=== PATIENT | female | born 1960 | race Caucasian/White ===

== ENCOUNTER → 2016-10-31 | Outpatient (CLI) | payer OTHER ==
--- NOTE | 2016-10-31 09:07 | MM ---
Reason for exam: screening (asymptomatic). Baseline mammogram. History: Patient is postmenopausal. Physical Findings: Nurse did not find any significant physical abnormalities on exam. MG Screening Mammo w CAD Bilateral CC and MLO view(s) were taken. There are scattered fibroglandular densities. There is no discrete abnormality. ASSESSMENT: Negative, BI-RAD 1 RECOMMENDATION: Routine screening mammogram of both breasts in 1 year.
--- NOTE | 2016-10-31 10:45 | CTL ---
EXAMINATION TYPE: CT Low Dose Lung DATE OF EXAM ORDERED: 10/31/2016 HISTORY: Long-term tobacco use. Lung cancer screening CT DLP: 45.[address] CTDI: 1.3 mGy Automated exposure control for dose reduction was used. SCREENING VISIT: Initial study COMPARISON: CTA chest September 08, 2013 TECHNIQUE: Low dose computed tomography scan was performed through the chest at 1 mm thick sections and reconstructed images in the coronal plane at [address] DIAGNOSTIC QUALITY: Satisfactory FINDINGS: LUNG NODULES: Present, detailed below: Right lung a spiculated scarlike opacity nodule with a size of 8 x 5 mm. On image # CT Image slide number 131. Some adjacent bronchiectatic change is present. This was present on prior study near image 61 favor postinflammatory. Just below this right upper lobe there is new irregular 12 x 4 mm scarlike nodule on axial image 145 noted. Incidental note is made of 2 mm nodule inferior anterior right upper lobe on axial image 176. A few additional scattered micronodules are felt present. LUNGS: COPD: Severity: Mild to moderate Fibrosis: Severity: Mild apical scarring bilaterally. Mild to moderate scattered areas of linear scarring. More focal pleural-based scarring in the lingula on axial image 14 is redemonstrated with some progression from prior CT noted. Lymph nodes: No suspicious adenopathy. Other findings: No additional significant finding. BILATERAL PLEURAL SPACE: Effusion: None Calcification: None Thickening: Some focal thickening anteriorly near lingula seen best sagittal image 217 near site of lingular scarring is noted. Pneumothorax: None HEART: Heart Size: Normal Coronary calcification: Severe focal calcification in the left main Pericardial effusion: Tiny OTHER FINDINGS: Upper abdomen: No significant finding seen Bony thorax: Osseous structures somewhat demineralized. Supraclavicular region: No significant finding seen. Other: There is mild to moderate calcified plaque of aorta extending into arch vessels. Ascending aorta and proximal arch measure up to 3.4 cm in diameter IMPRESSION: 1. Background mild to moderate emphysematous change with mild to moderate scattered fibrosis. Slightly suspicious new spiculated 12 x 4 mm scarlike nodule right upper lobe noted. 2. Severe focal calcified plaque in left main, clinical correlation for additional cardiovascular risk factors advised. FOLLOW UP CT CHEST RECOMMENDATION: CT follow-up in 3 months time to reassess right upper lobe scarlike 12 x [address] LUNG RAD: 4X- Suspicious (technically due to spiculation) I favor postinflammatory in etiology over malignancy. Due to spiculation and size category 4X is given over category 3. Mean axis is 8 mm with no definitive 8 mm solid component to warrant PET CT currently. Advise CT follow up in 3months time. MTDD
== END | disposition home or self-care (01) ==
LOC: RADCTMAIN 08:14
PROVIDERS: ATTEND Family Medicine
DX: Z12.31 Encounter for screening mammogram for malignant neoplasm of breast (principal); Z12.2 Encounter for screening for malignant neoplasm of respiratory organs; J43.9 Emphysema, unspecified; Z72.0 Tobacco use
CPT/HCPCS: G0202; G0297

== ENCOUNTER 2016-11-01 18:26 | Observation (INO) | payer OTHER ==
[2016-11-01] MEDS ORDERED: NITROGLYCERIN OINT 1 INCH/GM PACKET TOPICAL STA (18:55)
[2016-11-01] MEDS ORDERED: ASPIRIN 81 MG PO STA (18:55)
[2016-11-01] MEDS ORDERED: SODIUM CHLORIDE 0.9% 1,000 ML IV STA (18:55)
[2016-11-01] MEDS ORDERED: NITROGLYCERIN SL TABS 0.4 MG TAB SUBLINGUAL STA ×3 (18:55)
--- NOTE | 2016-11-01 19:01 | ED ---
Chest Pain HPI - General Chief Complaint: Chest Pain Stated Complaint: chest tightness Time Seen by Provider: 11/01/16 18:50 Source: patient Mode of arrival: wheelchair Limitations: no limitations - History of Present Illness Initial Comments: This 56-year-old white female presents complaining of some left-sided chest pain that radiates into her left shoulder and is described as a pressure or tightness and is associated with some shortness of breath and started last evening. It will occur at rest. She states that she has a remote history of previous stress test and heart catheterization but this was quite some time ago. She denies any leg pain, swelling, history of DVT, or history of PE. She states that she had a screening computed tomography scan of her neck and her chest yesterday and this apparently showed an abnormality. She states that the pain is moderate in severity. No other complaints or modifying factors. - Related Data Home Medications Medication Instructions Recorded Confirmed Budesonide-Formot 160-4.5 Mcg 2 puff INHALATION RT-BID 09/07/13 11/01/16 [Symbicort 160-4.5 Mcg Inhaler] Albuterol Inhaler [Ventolin Hfa 2 puff INHALATION RT-Q6H PRN 10/23/15 11/01/16 Inhaler] Ascorbic Acid [Vitamin C] 500 mg PO DAILY 11/01/16 11/01/16 Aspirin 325 mg PO DAILY 11/01/16 11/01/16 Cholecalciferol [Vitamin D3] 1,000 unit PO DAILY 11/01/16 11/01/16 Citalopram Hydrobromide [CeleXA] 10 mg PO DAILY 11/01/16 11/01/16 Cyclobenzaprine [Flexeril] 10 mg PO Q8H PRN 11/01/16 11/01/16 [place]-3 Fatty Acids/Fish Oil [Fish 1 cap PO DAILY 11/01/16 11/01/16 Oil 1,000 mg Softgel] Vitamin B Complex 1 cap PO DAILY 11/01/16 11/01/16 Vitamin E 100 unit PO DAILY 11/01/16 11/01/16 Allergies Allergy/AdvReac Type Severity Reaction Status Date / Time No Known Allergies Allergy Verified 11/01/16 19:18 Review of Systems ROS Statement: Those systems with pertinent positive or pertinent negative responses have been documented in the HPI. ROS Other: All systems not noted in ROS Statement are negative. Past Medical History Past Medical History: Chest Pain / Angina, COPD Additional Past Medical History / Comment(s): migraines in past,bronchitis , stress test 09-10-15,murmur when younger History of Any Multi-Drug Resistant Organisms: None Reported Past Surgical History: Appendectomy, Tubal Ligation Past Anesthesia/Blood Transfusion Reactions: No Reported Reaction Past Psychological History: No Psychological Hx Reported Smoking Status: Current every day smoker Past Alcohol Use History: None Reported Past Drug Use History: None Reported - Past Family History Brother(s) Family Medical History: Coronary Artery Disease (CAD), Myocardial Infarction (ID ) Additional Family Medical History / Comment(s): pacemaker Sister(s) Family Medical History: Mitral Valve Prolapse (MVP) Father Additional Family Medical History / Comment(s): "post op mrsa infection- from complications of that" Mother Family Medical History: Cancer General Exam - General Exam Comments Initial Comments: GENERAL: The patient is well nourished and well hydrated. VITAL SIGNS: Heart rate, blood pressure, respiratory rate reviewed as recorded in nurse's notes. EYES: Pupils are round and reactive. Extraocular movements are intact. No conjunctival / lid redness or swelling. ENT: No external evidence of injury, swelling, or ecchymosis. Airway is patent. Throat is clear. NECK: Nontender. No swelling or evidence of injury. No subcutaneous emphysema. Trachea is midline. No thyroid mass. HEART: Regular rate and rhythm. Good peripheral pulses. LUNGS/CHEST: Breath sounds clear and equal bilaterally. No rales, rhonchi, or wheezes. No ecchymosis, subcutaneous emphysema, or tenderness. ABDOMEN: Abdomen soft without tenderness. No palpable masses or organomegaly. No peritoneal signs. No abdominal wall swelling or ecchymosis. EXTREMITIES: No extremity tenderness. Normal muscle tone and function. No thoracolumbar tenderness. NEUROLOGIC: Sensation is grossly intact. Cranial nerve exam reveals face is symmetrical, tongue is midline, speech is clear. SKIN: No abrasions or ecchymosis is noted. No induration or masses noted. PSYCHIATRIC: Alert and oriented. Appropriate behavior and judgment. 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 All diagnostics were reviewed. The EKG shows a normal sinus rhythm at a rate of 97. There is no acute ST-T wave changes identified. The HI interval is 132, QRS duration is 92, the QTc interval is 462. The patient received some nitroglycerin as well as an aspirin. The CT from yesterday was reviewed and this does show a lung nodule and the radiologist requests follow-up in this regard, some left main coronary artery plaquing, and changes of COPD. The patient had a cardiac profile lab review that is essentially negative. The chest x-ray does not show any acute processes. She did receive some morphine as well and is feeling better on recheck. The case is discussed with Dr. Desir and she'll be admitted to the hospital for further treatment and Cardiologic evaluation to rule out the possibility of acute coronary syndrome. Disposition Clinical Impression: Chest pain, Unstable angina pectoris, Dyspnea, COPD (chronic obstructive pulmonary disease), Coronary atherosclerosis, Lung nodule Disposition: ADMITTED IP TO THIS HOSP Condition: Fair Time of Disposition: 20: Decision Date: 11/01/16 Decision Time: :
[2016-11-01 19:06] LABS: Basophils # (A) 0.1 k/uL (0-0.2); Basophils % (A) 1 %; CH 34.6; CHCM 34.6; Eosinophils # (A) 0.2 k/uL (0-0.7); Eosinophils % (A) 2 %; HCT 47.2 % (34.0-46.0); HDW 2.08; HGB 15.7 gm/dL (11.4-16.0); Luc # (Auto) 0.13; Luc % (Auto) 2; Lymphocytes % (A) 23 %; MCH 33.5 pg (25.0-35.0); MCHC 33.3 g/dL (31.0-37.0); MCV 100.6 fL (80.0-100.0); Mean Platelet Volume 7.4; Monocytes # (A) 0.6 k/uL (0-1.0); Monocytes % (A) 7 %; Neutrophils # (A) 5.9 k/uL (1.3-7.7); Neutrophils % (A) 66 %; RDW 13.5 % (11.5-15.5); WBC 8.9 k/uL (3.8-10.6); WBC (Perox) 8.82
--- NOTE | 2016-11-01 19:14 | XR ---
EXAMINATION TYPE: XR chest 2V DATE OF EXAM: 11/01/2016 COMPARISON: 10/23/2015 HISTORY: Shortness of breath TECHNIQUE: Frontal and lateral views of the chest are obtained. FINDINGS: Scattered senescent parenchymal changes noted. Hyperinflation compatible with COPD. No evidence for infiltrate. No evidence for atelectasis. Heart size is stable. Mediastinal structures are stable and grossly unremarkable. No evidence for hilar prominence. Degenerative changes dorsal spine. IMPRESSION: 1. No evidence for acute pulmonary disease.
[2016-11-01 19:17] LABS: ALT 31 U/L (9-52); AST 27 U/L (14-36); Alkaline Phosphatase 77 U/L (38-126); Anion Gap 8 mmol/L; Blood Urea Nitrogen 16 mg/dL (7-17); Calcium 9.5 mg/dL (8.4-10.2); Carbon Dioxide 26 mmol/L (22-30); Chloride 103 mmol/L (98-107); Glucose 96 mg/dL (74-99); Magnesium 1.8 mg/dL (1.6-2.3); Non-African American GFR(MDRD) >60 (>60 ml/min/1.73 sqM); Potassium 4.3 mmol/L (3.5-5.1); Sodium 137 mmol/L (137-145); Total Bilirubin 0.5 mg/dL (0.2-1.3); Total Protein 6.8 g/dL (6.3-8.2)
[2016-11-01 19:26] LABS: Creatine Kinase 166 U/L (30-135)
[2016-11-01 19:39] LABS: Partial Thromboplastin Time 21.9 sec (22.0-30.0); Prothrombin Time 9.9 sec (9.0-12.0); Troponin I <0.012 ng/mL (0.000-0.034)
[2016-11-01 19:42] LABS: Creatine Kinase MB 3.9 ng/mL (0.0-2.4)
[2016-11-01] MEDS ORDERED: MORPHINE SULFATE 4 MG/ML SYRINGE IVP STA (19:59)
[2016-11-01] MEDS ORDERED: NITROGLYCERIN SL TABS 0.4 MG TAB SUBLINGUAL PRN (20:23)
[2016-11-01] MEDS ORDERED: HEPARIN SODIUM,PORCINE 5,000 UNIT/ML 1 ML VIAL IV PRN (20:23)
[2016-11-01] MEDS ORDERED: HEPARIN SODIUM,PORCINE 5,000 UNIT/ML 1 ML VIAL IV ONE (20:23)
[2016-11-01] MEDS ORDERED: ACETAMINOPHEN TAB 325 MG TAB PO PRN (20:23)
[2016-11-01] MEDS ORDERED: ALBUTEROL NEBULIZED 2.5 MG/3 ML INHALATION PRN (20:26)
[2016-11-01] MEDS ORDERED: CYCLOBENZAPRINE 10 MG TAB PO PRN (20:26)
[2016-11-01] MEDS ORDERED: HEPARIN SODIUM,PORCINE/D5W PMX 25,000 UNIT in DEXTROSE/WATER 1 500ML.BAG IV SCH (20:30)
[2016-11-01] MEDS: MORPHINE SULFATE 4 MG/ML SYRINGE IV PRN (22:30)
[2016-11-01] MEDS: METOPROLOL TARTRATE 25 MG TAB PO SCH (23:25)
[2016-11-02 02:39] LABS: Mean Platelet Volume 7.2
[2016-11-02 02:52] LABS: Cholesterol 163 mg/dL (<200); HDL Cholesterol 76 mg/dL (40-60)
[2016-11-02 03:01] LABS: Creatine Kinase 116 U/L (30-135)
[2016-11-02 03:14] LABS: Troponin I <0.012 ng/mL (0.000-0.034)
[2016-11-02 03:22] LABS: Creatine Kinase MB 2.9 ng/mL (0.0-2.4)
[2016-11-02] MEDS: NITROGLYCERIN OINT 1 INCH/GM PACKET TOPICAL SCH ×3 (04:21→12:49)
[2016-11-02] MEDS: MORPHINE SULFATE 4 MG/ML SYRINGE IV PRN ×3 (04:21→13:03)
[2016-11-02 07:14] LABS: Creatine Kinase 102 U/L (30-135)
[2016-11-02 07:26] LABS: Troponin I <0.012 ng/mL (0.000-0.034)
[2016-11-02 07:30] LABS: Creatine Kinase MB 3.2 ng/mL (0.0-2.4)
[2016-11-02 07:45] VITALS: TEMP 97.5
[2016-11-02] MEDS ORDERED: VITAMIN E (DL,TOCOPHERYL ACET) 400 UNIT CAP PO SCH (09:00)
[2016-11-02] MEDS ORDERED: ASCORBIC ACID 500 MG TAB PO SCH (09:00)
[2016-11-02] MEDS ORDERED: CYANOCOBALAMIN-FA-PYRIDOXINE 1 EACH TAB PO SCH (09:00)
[2016-11-02] MEDS ORDERED: ASPIRIN 325 MG TAB PO SCH (09:00)
[2016-11-02] MEDS ORDERED: NON-FORMULARY DRUG (Omega-3 Fatty Acids/Fish Oil [Fish Oil 1,000 Mg Softgel] 1 CAP) PO SCH (09:00)
[2016-11-02] MEDS ORDERED: CHOLECALCIFEROL 1,000 UNIT TAB PO SCH (09:00)
[2016-11-02] MEDS ORDERED: CITALOPRAM HYDROBROMIDE 10 MG TAB PO SCH (09:00)
[2016-11-02] MEDS ORDERED: DOBUTamine DRIP for NUC MED 500 MG in DEXTROSE/WATER 1 250ML.BAG IV ONE (09:15)
--- NOTE | 2016-11-02 09:15 | P.HPIM ---
History of Present Illness H&P Date: 11/02/16 Chief Complaint: Chest pain. This is a 56-year-old white female with history of COPD who has come complaining of chest pressure and chest pain for the last several days. She states that it has been somewhat present intermittently over the last several months and years. However the pain became exacerbated in the last several days to the point where she was somewhat worried. No significant nausea some palpitations were noted. No significant diaphoresis. She is appropriately admitted to rule out myocardial infarction and history of unstable angina/chest pain. Review of Systems Constitutional: Denies chills, Denies fever Eyes: denies blurred vision, denies pain Ears, nose, mouth and throat: Denies headache, Denies sore throat Cardiovascular: Reports as per HPI, Reports chest pain, Denies shortness of breath Respiratory: Denies cough Gastrointestinal: Denies abdominal pain, Denies diarrhea, Denies nausea, Denies vomiting Genitourinary: Denies dysuria, Denies hematuria Musculoskeletal: Denies myalgias Past Medical History Past Medical History: Chest Pain / Angina, COPD Additional Past Medical History / Comment(s): migraines in past,bronchitis , stress test 09-10-15,murmur when younger, hypoglycemia History of Any Multi-Drug Resistant Organisms: None Reported Past Surgical History: Appendectomy, Tubal Ligation Past Anesthesia/Blood Transfusion Reactions: No Reported Reaction Past Psychological History: No Psychological Hx Reported Smoking Status: Current every day smoker Past Alcohol Use History: None Reported Additional Past Alcohol Use History / Comment(s): started smoking 1984 was smokig 3 ppd ow down to 2 ppd. Past Drug Use History: None Reported - Past Family History Brother(s) Family Medical History: Coronary Artery Disease (CAD), Myocardial Infarction (MS ) Additional Family Medical History / Comment(s): pacemaker Sister(s) Family Medical History: Mitral Valve Prolapse (MVP) Father Additional Family Medical History / Comment(s): "post op mrsa infection- from complications of that" Mother Family Medical History: Cancer Medications and Allergies Home Medications Medication Instructions Recorded Confirmed Type Budesonide-Formot 160-4.5 Mcg 2 puff INHALATION RT-BID 09/07/13 11/01/16 History [Symbicort 160-4.5 Mcg Inhaler] Albuterol Inhaler [Ventolin Hfa 2 puff INHALATION RT-Q6H PRN 10/23/15 11/01/16 History Inhaler] Ascorbic Acid [Vitamin C] 500 mg PO DAILY 11/01/16 11/01/16 History Aspirin 325 mg PO DAILY 11/01/16 11/01/16 History Cholecalciferol [Vitamin D3] 1,000 unit PO DAILY 11/01/16 11/01/16 History Citalopram Hydrobromide [CeleXA] 10 mg PO DAILY 11/01/16 11/01/16 History Cyclobenzaprine [Flexeril] 10 mg PO Q8H PRN 11/01/16 11/01/16 History [place]-3 Fatty Acids/Fish Oil [Fish 1 cap PO DAILY 11/01/16 11/01/16 History Oil 1,000 mg Softgel] Vitamin B Complex 1 cap PO DAILY 11/01/16 11/01/16 History Vitamin E 100 unit PO DAILY 11/01/16 11/01/16 History Allergies Allergy/AdvReac Type Severity Reaction Status Date / Time No Known Allergies Allergy Verified 11/01/16 19:18 Physical Exam Vitals: Vital Signs Temp Pulse Pulse Pulse Resp BP BP 11/02/16 07:44 97.5 F L 75 16 111/69 11/02/16 04:29 98.4 F 71 16 112/65 11/02/16 00:19 97.6 F 85 16 115/74 11/01/16 21:32 97.6 F 70 16 129/77 11/01/16 21:10 97.8 F 87 16 140/77 11/01/16 19:53 96 16 128/61 11/01/16 19:45 94 16 134/74 11/01/16 19:37 99 16 122/71 11/01/16 18:59 105 H 20 11/01/16 18:34 97.2 F L 102 H 17 134/69 Pulse Ox 11/02/16 07:44 95 11/02/16 04:29 94 L 11/02/16 00:19 94 L 11/01/16 21:32 94 L 11/01/16 21:10 97 11/01/16 19:53 93 L 11/01/16 19:45 95 11/01/16 19:37 96 11/01/16 18:59 11/01/16 18:34 95 Intake and Output 11/01/16 11/02/16 11/02/16 22:59 06:59 14:59 Intake Total 103.531 Balance 103.531 Intake: Intake, IV Titration 103.531 Amount Heparin Sodium,Porcine/ 103.531 D5w Pmx 25,000 unit In Dextrose/Water 1 500ml. bag @ 12 UNITS/KG/HR 14. 15 mls/hr IV .Q24H [facility] Rx #:[id number] Other: Weight 58.967 kg - Constitutional General appearance: no acute distress - EENT Eyes: EOMI - Neck Neck: no lymphadenopathy - Respiratory Respiratory: bilateral: CTA - Cardiovascular Rhythm: regular Heart sounds: normal: S1, S2 - Gastrointestinal General gastrointestinal: soft, no tenderness - Neurologic Neurologic: CNII-XII intact Results CBC & Chem 7: 11/02/16 02:11 11/01/16 18:52 Labs: Abnormal Lab Results - Last 24 Hours (Table) 11/01/16 11/01/16 11/01/16 Range/Units 18:52 18:52 18:52 Hct 47.2 H (34.0-46.0) % MCV 100.6 H (80.0-100.0) fL APTT 21.9 L (22.0-30.0) sec Total Creatine Kinase 166 H (30-135) U/L CK-MB (CK-2) 3.9 H* (0.0-2.4) ng/mL HDL Cholesterol (40-60) mg/dL 11/02/16 11/02/16 11/02/16 Range/Units 02:11 02:11 02:11 Hct (34.0-46.0) % MCV (80.0-100.0) fL APTT 36.9 H (22.0-30.0) sec Total Creatine Kinase (30-135) U/L CK-MB (CK-2) 2.9 H* (0.0-2.4) ng/mL HDL Cholesterol 76 H (40-60) mg/dL 11/02/16 Range/Units 06:14 Hct (34.0-46.0) % MCV (80.0-100.0) fL APTT (22.0-30.0) sec Total Creatine Kinase (30-135) U/L CK-MB (CK-2) 3.2 H* (0.0-2.4) ng/mL HDL Cholesterol (40-60) mg/dL Thrombosis Risk Factor Assmnt - Choose All That Apply Each Factor Represents 1 point: Age 41-60 years Thrombosis Risk Factor Assessment Total Risk Factor Score: 1 Thrombosis Risk Factor Assessment Level: Low Risk Assessment and Plan (1) Chest pain Status: Acute (2) Lung nodule Status: Acute (3) Atypical chest pain Status: Acute Plan: Suspect patient will need appropriate stress testing. Echocardiogram is pending. Sales Representative Facility Services consulted. Reconcile home medications. Otherwise, she is a full code. See orders otherwise. Time with Patient: Less than 30
[2016-11-02 10:00] VITALS: PULSE 71
[2016-11-02] MEDS: SYMBICORT 160-4.5 MCG INHALER INHALATION SCH ×2 (10:52→10:58)
--- NOTE | 2016-11-02 11:02 | P.CRDCN ---
History of Present Illness Consult date: 11/02/16 History of present illness: This is a 56-year-old female patient past medical history significant for COPD. She presented to the emergency department with complaints of a heavy pressure type feeling midsternal region that radiated into the left arm and to the back. She states she was sitting down doing nothing of particular exertion when this pain came on. This pain is intermittent in nature subsides on its own and returns with no specific aggravating factors verbalize. She is does have associated shortness of breath as well as diaphoresis. She recently underwent a lung CT per PCP she evaluate lung condition based on the fact that she has severe COPD and is still chronic daily smoker. This test showed moderate calcification of the left main coronary artery. EKG is normal sinus mechanism with no acute ST or T-wave abnormality. Troponin are negative 3. She has never seen a paraprofessional aide other than as an inpatient in the hospital. She was last here in 2016 at that time a stress test was recommended. She was advised to follow-up as an outpatient and never did. Review of Systems Extensive review of systems performed, negative except mentioned in HPI. Past Medical History Past Medical History: Chest Pain / Angina, COPD Additional Past Medical History / Comment(s): migraines in past,bronchitis , stress test 09-10-15,murmur when younger, hypoglycemia History of Any Multi-Drug Resistant Organisms: None Reported Past Surgical History: Appendectomy, Tubal Ligation Past Anesthesia/Blood Transfusion Reactions: No Reported Reaction Past Psychological History: No Psychological Hx Reported Smoking Status: Current every day smoker Past Alcohol Use History: None Reported Additional Past Alcohol Use History / Comment(s): started smoking 1984 was smokig 3 ppd ow down to 2 ppd. Past Drug Use History: None Reported - Past Family History Brother(s) Family Medical History: Coronary Artery Disease (CAD), Myocardial Infarction ([place] ) Additional Family Medical History / Comment(s): pacemaker Sister(s) Family Medical History: Mitral Valve Prolapse (MVP) Father Additional Family Medical History / Comment(s): "post op mrsa infection- from complications of that" Mother Family Medical History: Cancer Medications and Allergies Home Medications Medication Instructions Recorded Confirmed Type Budesonide-Formot 160-4.5 Mcg 2 puff INHALATION RT-BID 09/07/13 11/01/16 History [Symbicort 160-4.5 Mcg Inhaler] Albuterol Inhaler [Ventolin Hfa 2 puff INHALATION RT-Q6H PRN 10/23/15 11/01/16 History Inhaler] Ascorbic Acid [Vitamin C] 500 mg PO DAILY 11/01/16 11/01/16 History Aspirin 325 mg PO DAILY 11/01/16 11/01/16 History Cholecalciferol [Vitamin D3] 1,000 unit PO DAILY 11/01/16 11/01/16 History Citalopram Hydrobromide [CeleXA] 10 mg PO DAILY 11/01/16 11/01/16 History Cyclobenzaprine [Flexeril] 10 mg PO Q8H PRN 11/01/16 11/01/16 History [place]-3 Fatty Acids/Fish Oil [Fish 1 cap PO DAILY 11/01/16 11/01/16 History Oil 1,000 mg Softgel] Vitamin B Complex 1 cap PO DAILY 11/01/16 11/01/16 History Vitamin E 100 unit PO DAILY 11/01/16 11/01/16 History Allergies Allergy/AdvReac Type Severity Reaction Status Date / Time No Known Allergies Allergy Verified 11/01/16 19:18 Physical Exam Vitals: Vital Signs Temp Pulse Pulse Pulse Resp BP BP 11/02/16 07:44 97.5 F L 75 16 111/69 11/02/16 04:29 98.4 F 71 16 112/65 11/02/16 00:19 97.6 F 85 16 115/74 11/01/16 21:32 97.6 F 70 16 129/77 11/01/16 21:10 97.8 F 87 16 140/77 11/01/16 19:53 96 16 128/61 11/01/16 19:45 94 16 134/74 11/01/16 19:37 99 16 122/71 11/01/16 18:59 105 H 20 11/01/16 18:34 97.2 F L 102 H 17 134/69 Pulse Ox 11/02/16 07:44 95 11/02/16 04:29 94 L 11/02/16 00:19 94 L 11/01/16 21:32 94 L 11/01/16 21:10 97 11/01/16 19:53 93 L 11/01/16 19:45 95 11/01/16 19:37 96 11/01/16 18:59 11/01/16 18:34 95 Intake and Output 11/01/16 11/02/16 11/02/16 22:59 06:59 14:59 Intake Total 103.531 Balance 103.531 Intake: Intake, IV Titration 103.531 Amount Heparin Sodium,Porcine/ 103.531 D5w Pmx 25,000 unit In Dextrose/Water 1 500ml. bag @ 12 UNITS/KG/HR 14. 15 mls/hr IV .Q24H [facility] Rx #:[id number] Other: Weight 58.967 kg GENERAL: This is a 56-year-old female in no apparent distress at the time of my examination. HEENT: Head is atraumatic, normocephalic. Pupils are equal, round. Sclerae anicteric. Conjunctivae are clear. Mucous membranes of the mouth are moist. Neck is supple. There is no jugular venous distention. No carotid bruit is heard. LUNGS: Clear to auscultation no wheezes, rales or rhonchi. No chest wall tenderness is noted on palpation or with deep breathing. HEART: Regular rate and rhythm without murmurs, rubs or gallops. S1 and S2 heard. ABDOMEN: Soft, nontender. Bowel sounds are heard. No organomegaly noted. EXTREMITIES: 2+ peripheral pulses with no evidence of peripheral edema and no calf tenderness noted. NEUROLOGIC: Patient is awake, alert and oriented x3. Results 11/02/16 02:11 11/01/16 18:52 Cardiac Enzymes 11/01/16 11/01/16 11/02/16 Range/Units 18:52 18:52 02:11 AST 27 (14-36) U/L CK-MB (CK-2) 3.9 H* 2.9 H* (0.0-2.4) ng/mL Troponin I <0.012 <0.012 (0.000-0.034) ng/mL 11/02/16 Range/Units 06:14 AST (14-36) U/L CK-MB (CK-2) 3.2 H* (0.0-2.4) ng/mL Troponin I <0.012 (0.000-0.034) ng/mL Coagulation 11/01/16 11/02/16 Range/Units 18:52 02:11 PT 9.9 (9.0-12.0) sec APTT 21.9 L 36.9 H (22.0-30.0) sec Lipids 11/02/16 Range/Units 02:11 Triglycerides 68 (<150) mg/dL Cholesterol 163 (<200) mg/dL HDL Cholesterol 76 H (40-60) mg/dL CBC 11/01/16 11/02/16 Range/Units 18:52 02:11 WBC 8.9 (3.8-10.6) k/uL RBC 4.70 (3.80-5.40) m/uL Hgb 15.7 (11.4-16.0) gm/dL Hct 47.2 H (34.0-46.0) % Plt Count 346 296 (150-450) k/uL Comprehensive Metabolic Panel 11/01/16 Range/Units 18:52 Sodium 137 (137-145) mmol/L Potassium 4.3 (3.5-5.1) mmol/L Chloride 103 (98-107) mmol/L Carbon Dioxide 26 (22-30) mmol/L BUN 16 (7-17) mg/dL Creatinine 0.96 (0.52-1.04) mg/dL Glucose 96 (74-99) mg/dL Calcium 9.5 (8.4-10.2) mg/dL AST 27 (14-36) U/L ALT 31 (9-52) U/L Alkaline Phosphatase 77 (38-126) U/L Total Protein 6.8 (6.3-8.2) g/dL Albumin 4.3 (3.5-5.0) g/dL Current Medications Generic Name Dose Route Start Last Admin Trade Name Freq PRN Reason Stop Dose Admin Acetaminophen 650 mg 11/01/16 20:23 Tylenol Tab PO Q4HR PRN Pain Albuterol Sulfate 2.5 mg 11/01/16 20:26 Ventolin Nebulized INHALATION RT-Q6H PRN Shortness Of Breath Ascorbic Acid 500 mg 11/02/16 09:00 Vitamin C PO DAILY [facility] Aspirin 325 mg 11/02/16 09:00 Aspirin PO DAILY [facility] Budesonide/Formoterol Fumarate 2 puff 11/02/16 08:00 Symbicort 160-4.5 Mcg Inhaler INHALATION RT-BID [facility] Cholecalciferol 1,000 unit 11/02/16 09:00 Vitamin D3 PO DAILY [facility] Citalopram Hydrobromide 10 mg 11/02/16 09:00 Celexa PO DAILY [facility] Cyclobenzaprine HCl 10 mg 11/01/16 20:26 11/02/16 01:35 Flexeril PO 10 mg Q8H PRN Administration Muscle Spasm Folic Acid 1 each 11/02/16 09:00 Folbic PO DAILY [facility] Heparin Sodium (Porcine) 0 unit 11/01/16 20:23 11/02/16 04:29 Heparin IV 4,000 unit Q6HR PRN Administration Low PTT Protocol Heparin Sodium/Dextrose 25,000 500 mls @ 14.15 mls/hr 11/01/16 20:30 04:28 unit/ IV Solution IV 15.51 units/kg/hr .Q24H [facility] 18.3 mls/hr Protocol Titration 12 UNITS/KG/HR Metoprolol Tartrate 25 mg 11/01/16 21:00 11/01/16 23:25 Lopressor PO 25 mg BID [facility] Administration Morphine Sulfate 4 mg 11/01/16 20:23 11/02/16 04:21 Morphine Sulfate (Inj) IV 4 mg Q4H PRN Administration Chest Pain Nitroglycerin 1 inch 11/02/16 00:00 11/02/16 06:49 Nitro-Bid Oint TOPICAL Not Given Q6HR [facility] Nitroglycerin 0.4 mg 11/01/16 20:23 Nitrostat SUBLINGUAL Q5M PRN Chest Pain Vitamin E 400 unit 11/02/16 09:00 Vitamin E PO DAILY [facility] Intake and Output 11/01/16 11/02/16 11/02/16 22:59 06:59 14:59 Intake Total 103.531 Balance 103.531 Intake: Intake, IV Titration 103.531 Amount Heparin Sodium,Porcine/ 103.531 D5w Pmx 25,000 unit In Dextrose/Water 1 500ml. bag @ 12 UNITS/KG/HR 14. 15 mls/hr IV .Q24H [facility] Rx #:[id number] Other: Weight 58.967 kg 11/02/16 02:11 11/01/16 18:52 EKG Interpretations (text) EKG indicates a normal sinus mechanism. Assessment and Plan Plan: ASSESSMENT 1. Chest pain, atypical 2. COPD PLAN Obtain 2-D echocardiogram to assess LV function and structure. Proceed with a dobutamine stress echo to rule out an acute coronary event. If this testing is normal from a cardiac perspective the patient is stable for discharge home. She can follow-up with Dr. Gomes as needed. Thank you kindly for this consultation Nurse Practitioner note has been reviewed, I agree with a documented findings and plan of care. Patient was seen and examined.
[2016-11-02 11:23] VITALS: BP 117/79; RESP 18
[2016-11-02] MEDS: METOPROLOL TARTRATE 25 MG TAB PO SCH (11:45)
--- NOTE | 2016-11-02 11:54 | P.CRDCN ---
History of Present Illness Consult reason: chest pain History of present illness: Patient examined Normal heart sounds Normal cardiac enzymes Admitted with chest discomfort Discussed with Dr. Desir Proceed with dobutamine stress echo this morning Please see full dictation by nurse practitioner Past Medical History Past Medical History: Chest Pain / Angina, COPD Additional Past Medical History / Comment(s): migraines in past,bronchitis , stress test 09-10-15,murmur when younger, hypoglycemia History of Any Multi-Drug Resistant Organisms: None Reported Past Surgical History: Appendectomy, Tubal Ligation Past Anesthesia/Blood Transfusion Reactions: No Reported Reaction Past Psychological History: No Psychological Hx Reported Smoking Status: Current every day smoker Past Alcohol Use History: None Reported Additional Past Alcohol Use History / Comment(s): started smoking 1984 was smokig 3 ppd ow down to 2 ppd. Past Drug Use History: None Reported - Past Family History Brother(s) Family Medical History: Coronary Artery Disease (CAD), Myocardial Infarction ([place] ) Additional Family Medical History / Comment(s): pacemaker Sister(s) Family Medical History: Mitral Valve Prolapse (MVP) Father Additional Family Medical History / Comment(s): "post op mrsa infection- from complications of that" Mother Family Medical History: Cancer Medications and Allergies Home Medications Medication Instructions Recorded Confirmed Type Budesonide-Formot 160-4.5 Mcg 2 puff INHALATION RT-BID 09/07/13 11/01/16 History [Symbicort 160-4.5 Mcg Inhaler] Albuterol Inhaler [Ventolin Hfa 2 puff INHALATION RT-Q6H PRN 10/23/15 11/01/16 History Inhaler] Ascorbic Acid [Vitamin C] 500 mg PO DAILY 11/01/16 11/01/16 History Aspirin 325 mg PO DAILY 11/01/16 11/01/16 History Cholecalciferol [Vitamin D3] 1,000 unit PO DAILY 11/01/16 11/01/16 History Citalopram Hydrobromide [CeleXA] 10 mg PO DAILY 11/01/16 11/01/16 History Cyclobenzaprine [Flexeril] 10 mg PO Q8H PRN 11/01/16 11/01/16 History [place]-3 Fatty Acids/Fish Oil [Fish 1 cap PO DAILY 11/01/16 11/01/16 History Oil 1,000 mg Softgel] Vitamin B Complex 1 cap PO DAILY 11/01/16 11/01/16 History Vitamin E 100 unit PO DAILY 11/01/16 11/01/16 History Allergies Allergy/AdvReac Type Severity Reaction Status Date / Time No Known Allergies Allergy Verified 11/01/16 19:18 Physical Exam Vitals: Vital Signs Temp Pulse Pulse Pulse Resp BP BP 11/02/16 11:22 97.5 F L 71 18 117/79 11/02/16 08:00 71 75 16 11/02/16 07:44 97.5 F L 75 16 111/69 11/02/16 04:29 98.4 F 71 16 112/65 11/02/16 00:19 97.6 F 85 16 115/74 11/01/16 21:32 97.6 F 70 16 129/77 11/01/16 21:10 97.8 F 87 16 140/77 11/01/16 19:53 96 16 128/61 11/01/16 19:45 94 16 134/74 11/01/16 19:37 99 16 122/71 11/01/16 18:59 105 H 20 11/01/16 18:34 97.2 F L 102 H 17 134/69 Pulse Ox 11/02/16 11:22 93 L 11/02/16 08:00 11/02/16 07:44 95 11/02/16 04:29 94 L 11/02/16 00:19 94 L 11/01/16 21:32 94 L 11/01/16 21:10 97 11/01/16 19:53 93 L 11/01/16 19:45 95 11/01/16 19:37 96 11/01/16 18:59 11/01/16 18:34 95 Intake and Output 11/01/16 11/02/16 11/02/16 22:59 06:59 14:59 Intake Total 103.531 Balance 103.531 Intake: Intake, IV Titration 103.531 Amount Heparin Sodium,Porcine/ 103.531 D5w Pmx 25,000 unit In Dextrose/Water 1 500ml. bag @ 12 UNITS/KG/HR 14. 15 mls/hr IV .Q24H [facility] Rx #:[id number] Other: Voiding Method Toilet Weight 58.967 kg Results 11/02/16 02:11 11/01/16 18:52 Cardiac Enzymes 11/01/16 11/01/16 11/02/16 Range/Units 18:52 18:52 02:11 AST 27 (14-36) U/L CK-MB (CK-2) 3.9 H* 2.9 H* (0.0-2.4) ng/mL Troponin I <0.012 <0.012 (0.000-0.034) ng/mL 11/02/16 Range/Units 06:14 AST (14-36) U/L CK-MB (CK-2) 3.2 H* (0.0-2.4) ng/mL Troponin I <0.012 (0.000-0.034) ng/mL Coagulation 11/01/16 11/02/16 Range/Units 18:52 02:11 PT 9.9 (9.0-12.0) sec APTT 21.9 L 36.9 H (22.0-30.0) sec Lipids 11/02/16 Range/Units 02:11 Triglycerides 68 (<150) mg/dL Cholesterol 163 (<200) mg/dL HDL Cholesterol 76 H (40-60) mg/dL CBC 11/01/16 11/02/16 Range/Units 18:52 02:11 WBC 8.9 (3.8-10.6) k/uL RBC 4.70 (3.80-5.40) m/uL Hgb 15.7 (11.4-16.0) gm/dL Hct 47.2 H (34.0-46.0) % Plt Count 346 296 (150-450) k/uL Comprehensive Metabolic Panel 11/01/16 Range/Units 18:52 Sodium 137 (137-145) mmol/L Potassium 4.3 (3.5-5.1) mmol/L Chloride 103 (98-107) mmol/L Carbon Dioxide 26 (22-30) mmol/L BUN 16 (7-17) mg/dL Creatinine 0.96 (0.52-1.04) mg/dL Glucose 96 (74-99) mg/dL Calcium 9.5 (8.4-10.2) mg/dL AST 27 (14-36) U/L ALT 31 (9-52) U/L Alkaline Phosphatase 77 (38-126) U/L Total Protein 6.8 (6.3-8.2) g/dL Albumin 4.3 (3.5-5.0) g/dL Current Medications Generic Name Dose Route Start Last Admin Trade Name Freq PRN Reason Stop Dose Admin Acetaminophen 650 mg 11/01/16 20:23 Tylenol Tab PO Q4HR PRN Pain Albuterol Sulfate 2.5 mg 11/01/16 20:26 Ventolin Nebulized INHALATION RT-Q6H PRN Shortness Of Breath Ascorbic Acid 500 mg 11/02/16 09:00 11/02/16 11:46 Vitamin C PO 500 mg DAILY [facility] Administration Aspirin 325 mg 11/02/16 09:00 11/02/16 11:46 Aspirin PO 325 mg DAILY [facility] Administration Budesonide/Formoterol Fumarate 2 puff 11/02/16 08:00 11/02/16 10:58 Symbicort 160-4.5 Mcg Inhaler INHALATION 2 puff RT-BID [facility] Administration Cholecalciferol 1,000 unit 11/02/16 09:00 11/02/16 11:46 Vitamin D3 PO 1,000 unit DAILY [facility] Administration Citalopram Hydrobromide 10 mg 11/02/16 09:00 11/02/16 11:46 Celexa PO 10 mg DAILY [facility] Administration Cyclobenzaprine HCl 10 mg 11/01/16 20:26 11/02/16 01:35 Flexeril PO 10 mg Q8H PRN Administration Muscle Spasm Folic Acid 1 each 11/02/16 09:00 11/02/16 11:45 Folbic PO 1 each DAILY [facility] Administration Metoprolol Tartrate 25 mg 11/01/16 21:00 11/02/16 11:45 Lopressor PO Not Given BID [facility] Morphine Sulfate 4 mg 11/01/16 20:23 11/02/16 09:02 Morphine Sulfate (Inj) IV 4 mg Q4H PRN Administration Chest Pain Nitroglycerin 1 inch 11/02/16 00:00 11/02/16 06:49 Nitro-Bid Oint TOPICAL Not Given Q6HR [facility] Nitroglycerin 0.4 mg 11/01/16 20:23 Nitrostat SUBLINGUAL Q5M PRN Chest Pain Vitamin E 400 unit 11/02/16 09:00 11/02/16 11:46 Vitamin E PO 400 unit DAILY [facility] Administration Intake and Output 09/11/02/16 11/02/16 22:59 06:59 14:59 Intake Total 103.531 Balance 103.531 Intake: Intake, IV Titration 103.531 Amount Heparin Sodium,Porcine/ 103.531 D5w Pmx 25,000 unit In Dextrose/Water 1 500ml. bag @ 12 UNITS/KG/HR 14. 15 mls/hr IV .Q24H [facility] Rx #:[id number] Other: Voiding Method Toilet Weight 58.967 kg 11/02/16 02:11 11/01/16 18:52
--- NOTE | 2016-11-02 13:11 | ECHOF ---
Referral Reason:cp MEASUREMENTS -------- HEIGHT: 172.7 cm WEIGHT: 59.0 kg BP: 112/65 RVIDd: 3.6 cm (< 3.3) IVSd: 0.9 cm (0.6 - 1.1) LVIDd: 3.9 cm (3.9 - 5.3) LVPWd: 0.9 cm (0.6 - 1.1) IVSs: 1.4 cm LVIDs: 2.9 cm LVPWs: 1.3 cm LA Diam: 2.8 cm (2.7 - 3.8) LAESV Index (A-L): 20.89 ml/m Ao Diam: 3.5 cm (2.0 - 3.7) AV Cusp: 2.1 cm (1.5 - 2.6) MV EXCURSION: 23.406 mm (> 18.000) MV EF SLOPE: 162 mm/s (70 - 150) EPSS: 0.3 cm MV E Pasquale: 0.86 m/s MV DecT: 214 ms MV A Pasquale: 0.79 m/s MV E/A Ratio: 1.09 RAP: 5.00 mmHg RVSP: 21.70 mmHg FINDINGS -------- Sinus rhythm. This was a technically good study. The left ventricular size is normal. Left ventricular wall thickness is normal. Overall left ventricular systolic function is normal with, an EF between 55 - 60 %. The right ventricle is mildly enlarged. Normal LA size by volume 22+/-6 ml/m2. The right atrium is normal in size. The aortic valve was not well visualized. There is trace mitral regurgitation. Mild tricuspid regurgitation present. Right ventricular systolic pressure is normal at < 35 mmHg. The pulmonic valve is normal. The aortic root size is normal. The inferior vena cava is mildly dilated. There is no pericardial effusion. CONCLUSIONS -------- 1. Sinus rhythm. 2. There is trace mitral regurgitation. 3. Mild tricuspid regurgitation present. 4. Right ventricular systolic pressure is normal at < 35 mmHg. 5. The pulmonic valve is normal. 6. The aortic root size is normal. 7. The inferior vena cava is mildly dilated. 8. There is no pericardial effusion. 9. This was a technically good study. 10. The left ventricular size is normal. 11. Left ventricular wall thickness is normal. 12. Overall left ventricular systolic function is normal with, an EF between 55 - 60 %. 13. The right ventricle is mildly enlarged. 14. Normal LA size by volume 22+/-6 ml/m2. 15. The right atrium is normal in size. 16. The aortic valve was not well visualized. WEIGHT AND TEST BAR CLERK: Jyoti Ohara RDCS
--- NOTE | 2016-11-02 14:40 | P.DS ---
Providers Date of admission: 11/01/16 20:28 Attending physician: Javier Desir Consults: 11/01/16 20:23 Consult Physician Urgent Consulting Provider: Kelsey Frost Consult Reason/Comments: cp Do you want consulting provider notified?: Yes Primary care physician: Javier Desir - Discharge Diagnosis(es) (1) Chest pain Current Visit: Yes Status: Acute (2) Lung nodule Current Visit: Yes Status: Acute (3) Atypical chest pain Current Visit: No Status: Acute Hospital Course: This is a discharge summary in a 56-year-old white female essentially admitted for chest pain with typical anginal features. Myocardial infarction was ruled out from an enzymatic perspective. However, cardiology was consulted and we ended up doing stress testing. She does have multiple risk factors including element of CPE. The patient was stabilized and stress testing did not show any type of coronary artery damage or element of disease on stress testing. The patient is discharged in stable condition to follow-up with her naproxen 5-7 days. Patient Condition at Discharge: Stable Plan - Discharge Summary New Discharge Prescriptions: Continue Budesonide-Formot 160-4.5 Mcg [Symbicort 160-4.5 Mcg Inhaler] 2 puff INHALATION RT-BID Albuterol Inhaler [Ventolin Hfa Inhaler] 2 puff INHALATION RT-Q6H PRN PRN Reason: Shortness Of Breath Cholecalciferol [Vitamin D3] 1,000 unit PO DAILY Ascorbic Acid [Vitamin C] 500 mg PO DAILY Vitamin B Complex 1 cap PO DAILY Cyclobenzaprine [Flexeril] 10 mg PO Q8H PRN PRN Reason: Muscle Spasm Citalopram Hydrobromide [CeleXA] 10 mg PO DAILY Aspirin 325 mg PO DAILY [place]-3 Fatty Acids/Fish Oil [Fish Oil 1,000 mg Softgel] 1 cap PO DAILY Vitamin E 100 unit PO DAILY Discharge Medication List Budesonide-Formot 160-4.5 Mcg [Symbicort 160-4.5 Mcg Inhaler] 2 puff INHALATION RT-BID 09/07/13 [History] Albuterol Inhaler [Ventolin Hfa Inhaler] 2 puff INHALATION RT-Q6H PRN 10/23/15 [ History] Ascorbic Acid [Vitamin C] 500 mg PO DAILY 11/01/16 [History] Aspirin 325 mg PO DAILY 11/01/16 [History] Cholecalciferol [Vitamin D3] 1,000 unit PO DAILY 11/01/16 [History] Citalopram Hydrobromide [CeleXA] 10 mg PO DAILY 11/01/16 [History] Cyclobenzaprine [Flexeril] 10 mg PO Q8H PRN 11/01/16 [History] [place]-3 Fatty Acids/Fish Oil [Fish Oil 1,000 mg Softgel] 1 cap PO DAILY [History] Vitamin B Complex 1 cap PO DAILY 11/01/16 [History] Vitamin E 100 unit PO DAILY 11/01/16 [History] Discharge Disposition: HOME SELF-CARE
--- NOTE | 2016-11-03 05:11 | ECHOS ---
STRESS ECHOCARDIOGRAM DATE OF SERVICE: 11/02/2016. DOBUTAMINE STRESS ECHO: INDICATIONS: Chest pain. MEDICATIONS:: BASELINE HEART RATE: 65 BASELINE BLOOD PRESSURE: 133/90 MAXIMUM HEART RATE: 120 MAXIMUM BLOOD PRESSURE: 142/67 85% MPHR: 139 100% MPHR: 164 METS: MAXIMUM STAGE REACHED: TOTAL EXERCISE TIME: CLINICAL INFORMATION: This is a 56-year-old female referred for a stress test. Baseline heart rate 65 beats per minute. Baseline blood pressure 133/90 mmHg. Baseline 12-lead ECG showed normal sinus rhythm with early repolarization abnormality. Patient received dobutamine infusion per protocol up to 40 mcg. Peak heart rate of 120 beats per minute. However there was excellent contractility noted on echo. There was no ECG evidence for ischemia. Occasional PVCs were noted during dobutamine infusion. No nonsustained ventricular tachycardia. The baseline 2D echo images showed normal LV size and systolic function without segmental wall motion abnormalities. There is a stepwise increment in overall LV contractility without developing any wall motion abnormalities. At recovery, LV systolic function remain normal. IMPRESSION: No ECG or echocardiographic evidence of ischemia. Occasional PVCs during dobutamine infusion. MMODL / IJN: [id number] /
== END 2016-11-02 15:42 | disposition home or self-care (01) ==
LOC: EC 18:26 → 3OBS 20:28
PROVIDERS: ADMIT Family Medicine; ATTEND Family Medicine
DX: R07.89 Other chest pain (principal); I20.9 Angina pectoris, unspecified; J44.9 Chronic obstructive pulmonary disease, unspecified; G43.909 Migraine, unspecified, not intractable, without status migrainosus; F17.200 Nicotine dependence, unspecified, uncomplicated; R91.1 Solitary pulmonary nodule; Z82.49 Family history of ischemic heart disease and other diseases of the circulatory system; Z79.51 Long term (current) use of inhaled steroids; Z79.899 Other long term (current) drug therapy; Z79.82 Long term (current) use of aspirin
CPT/HCPCS: 96361 ×2; 96366 ×2; 96376 ×2; 96365; 96375; 99285; 36415; 94640; 93005; 93017; 93306; 93350; 85379; 80061; 80053; 82550 ×2; 82553 ×2; 83735; 84484 ×2; 85025; 85049; 85610; 85730 ×2; 71020; G0378 ×2; J1250; J2270 ×2; J1644 ×3

== ENCOUNTER → 2016-11-30 | Day surgery (SDC) | payer OTHER ==
[2016-11-25 15:07] VITALS: BMI 19.3
[~2016-11-30] MED LIST: LACTATED RINGERS 1,000 ML IV SCH; LIDOCAINE 1% 20 ML VIAL (10MG/ML) FOR IV START INTRADERMA PRN; PROPOFOL 10 MG/ML 20 ML VIAL IV ONE
[2016-11-30 09:09] VITALS: TEMP 98
--- NOTE | 2016-11-30 09:56 | P.GSHP ---
History of Present Illness H&P Date: 11/30/16 Chief Complaint: Screening colonoscopy This is a 56-year-old female referred from Dr. Desir. Patient presents today for screening colonoscopy. Past Medical History Past Medical History: Chest Pain / Angina, COPD Additional Past Medical History / Comment(s): HX migraines,states chronic bronchitis History of Any Multi-Drug Resistant Organisms: None Reported Past Surgical History: Appendectomy, Tubal Ligation Past Anesthesia/Blood Transfusion Reactions: No Reported Reaction Past Psychological History: Anxiety Smoking Status: Current every day smoker Past Alcohol Use History: None Reported Additional Past Alcohol Use History / Comment(s): started smoking 1984 was smoking 3 ppd now down to 1-2 ppd Past Drug Use History: None Reported - Past Family History Brother(s) Family Medical History: Coronary Artery Disease (CAD), Myocardial Infarction ([place] ) Additional Family Medical History / Comment(s): pacemaker Sister(s) Family Medical History: Mitral Valve Prolapse (MVP) Father Additional Family Medical History / Comment(s): "post op mrsa infection- from complications of that" Mother Family Medical History: Cancer Medications and Allergies Home Medications Medication Instructions Recorded Confirmed Type Budesonide-Formot 160-4.5 Mcg 2 puff INHALATION RT-BID 09/07/13 11/30/16 History [Symbicort 160-4.5 Mcg Inhaler] Albuterol Inhaler [Ventolin Hfa 2 puff INHALATION RT-Q6H PRN 10/23/15 11/30/16 History Inhaler] Ascorbic Acid [Vitamin C] 500 mg PO DAILY 11/01/16 11/25/16 History Aspirin 325 mg PO DAILY 11/01/16 11/25/16 History Cholecalciferol [Vitamin D3] 1,000 unit PO DAILY 11/01/16 11/25/16 History Citalopram Hydrobromide [CeleXA] 10 mg PO DAILY 11/01/16 11/30/16 History Cyclobenzaprine [Flexeril] 10 mg PO Q8H PRN 11/01/16 11/30/16 History [place]-3 Fatty Acids/Fish Oil [Fish 1 cap PO DAILY 11/01/16 11/25/16 History Oil 1,000 mg Softgel] Vitamin B Complex 1 cap PO DAILY 11/01/16 11/25/16 History Vitamin E 100 unit PO DAILY 11/01/16 11/25/16 History [place] Cold/Cough 1 applic PO DAILY PRN 11/25/16 History Allergies Allergy/AdvReac Type Severity Reaction Status Date / Time No Known Allergies Allergy Verified 11/25/16 15:08 Surgical - Exam Vital Signs Temp Pulse Resp BP Pulse Ox 98.0 F 90 16 120/83 96 11/30/16 09:07 11/30/16 09:07 11/30/16 09:07 11/30/16 09:07 11/30/16 09:07 - General well developed, no distress - Eyes PERRL - ENT normal pinna - Neck no masses - Respiratory normal expansion - Cardiovascular Rhythm: regular - Abdomen Abdomen: soft, non tender Assessment and Plan Assessment: We'll perform screening colonoscopy.
[2016-11-30 10:36] VITALS: BP 127/78; PULSE 80; RESP 18
--- NOTE | 2016-11-30 10:56 | P.OP ---
Date of Procedure: 11/30/16 Preoperative Diagnosis: Screening colonoscopy Postoperative Diagnosis: Left colon, sigmoid colon polyp Procedure(s) Performed: Colonoscopy Anesthesia: MAC Surgeon: Juan José Joyner Pathology: other (Left and sigmoid colon polyps) Condition: stable Disposition: PACU Description of Procedure: The patient's placed on the endoscopy table in the lateral position. She received IV sedation. Digital rectal exam was performed which revealed no abnormalities. The flexible colonoscope was then placed patient anus and passed throughout the entire colon. The ileocecal valve was visualized. Cecum , ascending and transverse colon appeared normal. In the descending colon there was a small polyp seen this removed with a forcep and snare. Scope was then brought back and; another peduncular polyp was seen this removed with the snare. Scope was then brought back the rectum and this appeared normal. Scope was withdrawn for patient.
== END ==
LOC: ORWHC2ENDO 08:57
PROVIDERS: ATTEND Surgery
DX: Z12.11 Encounter for screening for malignant neoplasm of colon (principal); D12.5 Benign neoplasm of sigmoid colon; D12.4 Benign neoplasm of descending colon; J44.9 Chronic obstructive pulmonary disease, unspecified; Z98.51 Tubal ligation status; F41.9 Anxiety disorder, unspecified; F32.9 Major depressive disorder, single episode, unspecified; F17.200 Nicotine dependence, unspecified, uncomplicated; Z79.82 Long term (current) use of aspirin; Z79.51 Long term (current) use of inhaled steroids; Z79.899 Other long term (current) drug therapy
CPT/HCPCS: 88305; 45380; 45385; J2704

== ENCOUNTER 2017-11-26 07:42 | Inpatient (IN) | payer OTHER ==
[2017-11-26] MEDS ORDERED: SODIUM CHLORIDE 0.9% 500 ML 500 ML IV STA (08:02)
[2017-11-26] MEDS ORDERED: methylPREDNISolone SOD SUCCI 125 MG/2 ML VIAL IV STA (08:02)
[2017-11-26] MEDS ORDERED: ALBUTEROL NEBULIZED 2.5 MG/3 ML INHALATION STA (08:02)
[2017-11-26] MEDS ORDERED: IPRATROPIUM 0.5 MG/2.5 ML NEBU INHALATION STA (08:02)
[2017-11-26] MEDS ORDERED: ASPIRIN-ACET-CAFF 250-250-65MG 1 EACH TAB PO STA (08:03)
--- NOTE | 2017-11-26 08:07 | ED ---
General Adult HPI - General Chief complaint: Shortness of Breath Stated complaint: SOB,Migraine Time Seen by Provider: 11/26/17 07:45 Source: patient, RN notes reviewed Mode of arrival: wheelchair Limitations: no limitations - History of Present Illness Initial comments: This a 57-year-old female presents emergency Department complaining of difficulty breathing. Patient states his symptoms started about a week ago. Patient states she was coming down with an upper respiratory infection and since then the cough and shortness of breath of both gotten worse. Patient states she occasionally coughs up some sputum. Patient denies any fever chills. Patient states over the last states she's also developed quite a bad headache. Patient states she's had these headaches in the past but has been a little while since she's had it. Patient states her back and chest hurt from breathing so much it's a feeling of soreness not pressure. Patient denies any numbness or weakness along with headache. Patient denies any lightheadedness or dizziness. Patient denies any abdominal pain patient denies nausea or vomiting. Patient states this morning she did have a bout of diarrhea. Patient denies any back pain. Patient dysuria hematuria urinary frequency. Patient denies any leg swelling or calf tenderness. - Related Data Home Medications Medication Instructions Recorded Confirmed Budesonide-Formot 160-4.5 Mcg 2 puff INHALATION RT-BID 09/07/13 11/30/16 [Symbicort 160-4.5 Mcg Inhaler] Albuterol Inhaler [Ventolin Hfa 2 puff INHALATION RT-Q6H PRN 10/23/15 11/30/16 Inhaler] Ascorbic Acid [Vitamin C] 500 mg PO DAILY 11/01/16 11/25/16 Aspirin 325 mg PO DAILY 11/01/16 11/25/16 Cholecalciferol [Vitamin D3] 1,000 unit PO DAILY 11/01/16 11/25/16 Citalopram Hydrobromide [CeleXA] 10 mg PO DAILY 11/01/16 11/30/16 Cyclobenzaprine [Flexeril] 10 mg PO Q8H PRN 11/01/16 11/30/16 [place]-3 Fatty Acids/Fish Oil [Fish 1 cap PO DAILY 11/01/16 11/25/16 Oil 1,000 mg Softgel] Vitamin B Complex 1 cap PO DAILY 11/01/16 11/25/16 Vitamin E 100 unit PO DAILY 11/01/16 11/25/16 Karli [place] Cold/Cough 1 applic PO DAILY PRN 11/25/16 Allergies Allergy/AdvReac Type Severity Reaction Status Date / Time No Known Allergies Allergy Verified 11/26/17 07:46 Review of Systems ROS Statement: Those systems with pertinent positive or pertinent negative responses have been documented in the HPI. ROS Other: All systems not noted in ROS Statement are negative. Past Medical History Past Medical History: Chest Pain / Angina, COPD Additional Past Medical History / Comment(s): HX migraines,states chronic bronchitis History of Any Multi-Drug Resistant Organisms: None Reported Past Surgical History: Appendectomy, Tubal Ligation Past Anesthesia/Blood Transfusion Reactions: No Reported Reaction Past Psychological History: Anxiety Smoking Status: Current every day smoker Past Alcohol Use History: None Reported Past Drug Use History: None Reported - Past Family History Brother(s) Family Medical History: Coronary Artery Disease (CAD), Myocardial Infarction ([place] ) Additional Family Medical History / Comment(s): pacemaker Sister(s) Family Medical History: Mitral Valve Prolapse (MVP) Father Additional Family Medical History / Comment(s): "post op mrsa infection- from complications of that" Mother Family Medical History: Cancer General Exam - General Exam Comments Initial Comments: GENERAL: Patient is well-developed and well-nourished. Patient is nontoxic and well- hydrated and is in moderate distress. ENT: Neck is soft and supple. No significant lymphadenopathy is noted. Oropharynx is clear. Moist mucous membranes. Neck has full range of motion without eliciting any pain. EYES: The sclera were anicteric and conjunctiva were pink and moist. Extraocular movements were intact and pupils were equal round and reactive to light. Eyelids were unremarkable. PULMONARY: Patient has decreased breath sounds and expiratory wheezing. CARDIOVASCULAR: There is a regular rate and rhythm without any murmurs gallops or rubs. ABDOMEN: Soft and nontender with normal bowel sounds. No palpable organomegaly was noted. There is no palpable pulsatile mass. SKIN: Skin is clear with no lesions or rashes and otherwise unremarkable. NEUROLOGIC: Patient is alert and oriented x3. Cranial nerves II through XII are grossly intact. Motor and sensory are also intact. Normal speech, volume and content. Symmetrical smile. MUSCULOSKELETAL: Normal extremities with adequate strength and full range of motion. No lower extremity swelling or edema. No calf tenderness. LYMPHATICS: No significant lymphadenopathy is noted PSYCHIATRIC: Normal psychiatric evaluation. Limitations: no limitations Course Vital Signs 11/26/17 11/26/17 11/26/17 07:46 07:59 08:30 Temperature 97.8 F Pulse Rate 93 72 Respiratory 26 H 26 H Rate Blood Pressure 147/94 O2 Sat by Pulse 91 L Oximetry 11/26/17 08:42 Temperature Pulse Rate 74 Respiratory Rate Blood Pressure O2 Sat by Pulse Oximetry Medical Decision Making - Medical Decision Making Patient was oxygenating 87-80% when I walked in the room we placed the patient on oxygen and ordered a breathing treatment. EKG shows normal sinus rhythm at 72 bpm SC interval 214 QRS is 90 QT intervals 412 QTC is 451 per patient's EKG shows no ST segment elevation or depression or T wave abnormalities are noted. Patient repeat EKG after she started having some chest tightness EKG shows a normal sinus rhythm at 90 bpm SC interval is on a 16 QRS is 92 QT interval 384 QTC is 469. Patient's EKG shows no ST segment elevation or depression or T wave abnormalities are noted. Chest x-ray shows no acute abnormality. Patient still had headaches like gave her 2 of morphine and 30 of Toradol. Patient states this is a classic migraine headache for her. Patient states her breathing is a little bit better at this time after she received a treatment. I spoke with the [facility] hospitalist. I wrote admitting orders I continued breathing treatments and steroids on the floor. I repeated the troponin. I consulted cardiology - Lab Data Result diagrams: 11/26/17 08:01 11/26/17 08:01 Lab Results 11/26/17 11/26/17 11/26/17 Range/Units 08:01 08:01 08:01 WBC 8.3 (3.8-10.6) k/uL RBC 4.96 (3.80-5.40) m/uL Hgb 16.1 H (11.4-16.0) gm/dL Hct 49.1 H (34.0-46.0) % MCV 99.0 (80.0-100.0) fL MCH 32.4 (25.0-35.0) pg MCHC 32.8 (31.0-37.0) g/dL RDW 12.2 (11.5-15.5) % Plt Count 327 (150-450) k/uL Neutrophils % 68 % Lymphocytes % 19 % Monocytes % 7 % Eosinophils % 2 % Basophils % 1 % Neutrophils # 5.7 (1.3-7.7) k/uL Lymphocytes # 1.6 (1.0-4.8) k/uL Monocytes # 0.6 (0-1.0) k/uL Eosinophils # 0.2 (0-0.7) k/uL Basophils # 0.1 (0-0.2) k/uL PT (9.0-12.0) sec INR (<1.2) APTT (22.0-30.0) sec Sodium 136 L (137-145) mmol/L Potassium 4.7 (3.5-5.1) mmol/L Chloride 98 (98-107) mmol/L Carbon Dioxide 27 (22-30) mmol/L Anion Gap 11 mmol/L BUN 9 (7-17) mg/dL Creatinine 0.63 (0.52-1.04) mg/dL Est GFR (CKD-EPI)AfAm >90 (>60 ml/min/1.73 sqM) Est GFR (CKD-EPI)NonAf >90 (>60 ml/min/1.73 sqM) Glucose 112 H (74-99) mg/dL Calcium 9.7 (8.4-10.2) mg/dL Magnesium 1.9 (1.6-2.3) mg/dL Total Bilirubin 1.0 (0.2-1.3) mg/dL AST 38 H (14-36) U/L ALT 35 (9-52) U/L Alkaline Phosphatase 91 (38-126) U/L Total Creatine Kinase 76 (30-135) U/L CK-MB (CK-2) 2.0 (0.0-2.4) ng/mL CK-MB (CK-2) Rel Index 2.6 Troponin I <0.012 (0.000-0.034) ng/mL NT-Pro-B Natriuret Pep pg/mL Total Protein 7.4 (6.3-8.2) g/dL Albumin 4.4 (3.5-5.0) g/dL 11/26/17 11/26/17 Range/Units 08:01 08:01 WBC (3.8-10.6) k/uL RBC (3.80-5.40) m/uL Hgb (11.4-16.0) gm/dL Hct (34.0-46.0) % MCV (80.0-100.0) fL MCH (25.0-35.0) pg MCHC (31.0-37.0) g/dL RDW (11.5-15.5) % Plt Count (150-450) k/uL Neutrophils % % Lymphocytes % % Monocytes % % Eosinophils % % Basophils % % Neutrophils # (1.3-7.7) k/uL Lymphocytes # (1.0-4.8) k/uL Monocytes # (0-1.0) k/uL Eosinophils # (0-0.7) k/uL Basophils # (0-0.2) k/uL PT 9.7 (9.0-12.0) sec INR 1.0 (<1.2) APTT 23.0 (22.0-30.0) sec Sodium (137-145) mmol/L Potassium (3.5-5.1) mmol/L Chloride (98-107) mmol/L Carbon Dioxide (22-30) mmol/L Anion Gap mmol/L BUN (7-17) mg/dL Creatinine (0.52-1.04) mg/dL Est GFR (CKD-EPI)AfAm (>60 ml/min/1.73 sqM) Est GFR (CKD-EPI)NonAf (>60 ml/min/1.73 sqM) Glucose (74-99) mg/dL Calcium (8.4-10.2) mg/dL Magnesium (1.6-2.3) mg/dL Total Bilirubin (0.2-1.3) mg/dL AST (14-36) U/L ALT (9-52) U/L Alkaline Phosphatase (38-126) U/L Total Creatine Kinase (30-135) U/L CK-MB (CK-2) (0.0-2.4) ng/mL CK-MB (CK-2) Rel Index Troponin I (0.000-0.034) ng/mL NT-Pro-B Natriuret Pep 72 pg/mL Total Protein (6.3-8.2) g/dL Albumin (3.5-5.0) g/dL Critical Care Time Critical Care Time: Yes Total Critical Care Time: 35 Disposition Clinical Impression: COPD with acute exacerbation, Cephalgia, Chest pain Disposition: ADMITTED IP TO THIS HOSP Is patient prescribed a controlled substance at d/c from ED?: No Referrals: Javier Desir MD [Primary Care Provider] - 1-2 days Time of Disposition: 09:15
[2017-11-26 08:17] LABS: Basophils # (A) 0.1 k/uL (0-0.2); Basophils % (A) 1 %; Eosinophils # (A) 0.2 k/uL (0-0.7); Eosinophils % (A) 2 %; HCT 49.1 % (34.0-46.0); HGB 16.1 gm/dL (11.4-16.0); Lymphocytes # (A) 1.6 k/uL (1.0-4.8); Lymphocytes % (A) 19 %; MCH 32.4 pg (25.0-35.0); MCHC 32.8 g/dL (31.0-37.0); Mean Platelet Volume 6.9; Monocytes # (A) 0.6 k/uL (0-1.0); Monocytes % (A) 7 %; Neutrophils # (A) 5.7 k/uL (1.3-7.7); Neutrophils % (A) 68 %; Platelet Count 327 k/uL (150-450); RBC 4.96 m/uL (3.80-5.40); RDW 12.2 % (11.5-15.5); WBC 8.3 k/uL (3.8-10.6)
[2017-11-26 08:26] LABS: Prothrombin Time 9.7 sec (9.0-12.0)
[2017-11-26 08:27] LABS: ALT 35 U/L (9-52); AST 38 U/L (14-36); Albumin 4.4 g/dL (3.5-5.0); Alkaline Phosphatase 91 U/L (38-126); Anion Gap 11 mmol/L; Blood Urea Nitrogen 9 mg/dL (7-17); Calcium 9.7 mg/dL (8.4-10.2); Carbon Dioxide 27 mmol/L (22-30); Chloride 98 mmol/L (98-107); Glucose 112 mg/dL (74-99); Magnesium 1.9 mg/dL (1.6-2.3); Sodium 136 mmol/L (137-145); Total Protein 7.4 g/dL (6.3-8.2)
[2017-11-26 08:33] LABS: Potassium 4.7 mmol/L (3.5-5.1)
[2017-11-26 08:43] LABS: Creatine Kinase 76 U/L (30-135)
[2017-11-26 08:56] LABS: Troponin I <0.012 ng/mL (0.000-0.034)
--- NOTE | 2017-11-26 08:58 | XR ---
EXAMINATION TYPE: XR chest 2V DATE OF EXAM: 11/26/2017 HISTORY: difficulty breathing. REFERENCE: Previous study dated 11/01/2016. FINDINGS: The lungs are overinflated. There is platelike atelectasis in the right midlung. Lungs othe rwise clear. Pleural spaces are clear. The heart is not enlarged. IMPRESSION: 1. COPD. 2. PLATELIKE ATELECTASIS, RIGHT MIDLUNG.
[2017-11-26] MEDS ORDERED: MORPHINE SULFATE 2 MG/ML SYRINGE IVP STA ×2 (09:10→14:55)
[2017-11-26] MEDS ORDERED: KETOROLAC 60 MG/2 ML VIAL IVP STA (09:13)
[2017-11-26] MEDS: IPRATROPIUM-ALBUTEROL 3 ML NEB INHALATION PRN ×3 (11:14→19:57)
[2017-11-26] MEDS: methylPREDNISolone SOD SUCCI 125 MG/2 ML VIAL IV SCH ×2 (12:12→17:24)
[2017-11-26 16:42] LABS: Glucose,Whole Blood 144 mg/dL (75-99)
--- NOTE | 2017-11-26 16:43 | P.HPIM ---
History of Present Illness On-call hospitalist covering for Dr. Desir This is a pleasant 57 years old female with past medical history of COPD, coronary artery disease, migraine. Presents because of dyspnea for about one week duration associated with cough and clear milky phlegm as per patient for the last 34 days. With chest tightness but no other chest pain. Associated with migraine attack. Describes the headache as similar to her migraine before and she wears some glasses because she states that her light hurts her migraine more switches usually the case. She denies any weakness or numbness. No abdominal pain. Patient is generally weak. However she has profuse diarrhea about 45 times with no abdominal pain and no nausea and vomiting. She is a smoker about 1.5-2 packs per day In the emergency room. EKG shows normal sinus rhythm at 72, with no significant ST-T changes, QTC 451. Vitas looks stable and afebrile The emergency room patient got breathing treatment with IV fluids. Steroids and aspirin. WBC 8.3K, hemoglobin 16.1, INR 1.0. Sodium 136. Creatinine 0.6.. In the emergency room patient got some breathing treatment, fluids, steroids, and pain medicine. Patient feels little better Review of Systems CONSTITUTIONAL: No fever, no malaise, no fatigue. HEENT: No recent visual problems or hearing problems. Denied any sore throat. CARDIOVASCULAR: No orthopnea, PND, no palpitations, no syncope. PULMONARY: no hemoptysis. GASTROINTESTINAL: No diarrhea, no nausea, no vomiting, no abdominal pain. Normoactive bowel sounds. NEUROLOGICAL: No headaches, no weakness, no numbness. HEMATOLOGICAL: Denies any bleeding or petechiae. GENITOURINARY: Denies any burning micturition, frequency, or urgency. MUSCULOSKELETAL/RHEUMATOLOGICAL: Denies any joint pain, swelling, or any muscle pain. ENDOCRINE: Denies any polyuria or polydipsia. Past Medical History Past Medical History: Chest Pain / Angina, COPD Additional Past Medical History / Comment(s): HX migraines,states chronic bronchitis History of Any Multi-Drug Resistant Organisms: None Reported Past Surgical History: Appendectomy, Tubal Ligation Past Anesthesia/Blood Transfusion Reactions: No Reported Reaction Past Psychological History: Anxiety Smoking Status: Current every day smoker Past Alcohol Use History: None Reported Past Drug Use History: None Reported - Past Family History Brother(s) Family Medical History: Coronary Artery Disease (CAD), Myocardial Infarction ([place] ) Additional Family Medical History / Comment(s): pacemaker Sister(s) Family Medical History: Mitral Valve Prolapse (MVP) Father Additional Family Medical History / Comment(s): "post op mrsa infection- from complications of that" Mother Family Medical History: Cancer Medications and Allergies Home Medications Medication Instructions Recorded Confirmed Type Budesonide-Formot 160-4.5 Mcg 2 puff INHALATION RT-BID 09/07/13 11/26/17 History [Symbicort 160-4.5 Mcg Inhaler] Albuterol Inhaler [Ventolin Hfa 2 puff INHALATION RT-Q6H PRN 10/23/15 11/26/17 History Inhaler] Karli [place] Cold/Cough 1 applic PO DAILY PRN 11/25/16 11/26/17 History LORazepam [Ativan] 0.5 mg PO TID PRN 11/26/17 11/26/17 History Allergies Allergy/AdvReac Type Severity Reaction Status Date / Time No Known Allergies Allergy Verified 11/26/17 12:30 Physical Exam Vitals: Vital Signs Temp Pulse Resp BP Pulse Ox 11/26/17 15:17 76 11/26/17 14:00 83 19 140/84 94 L 11/26/17 13:00 82 24 136/89 91 L 11/26/17 12:30 82 23 124/89 92 L 11/26/17 12:00 85 19 93 L 11/26/17 11:30 82 20 90 L 11/26/17 11:23 84 11/26/17 11:14 80 11/26/17 11:11 81 20 111/91 11/26/17 11:00 80 17 90 L 11/26/17 10:30 86 18 90 L 11/26/17 10:00 78 24 11/26/17 09:30 80 23 93 L 11/26/17 09:20 86 25 H 154/89 93 L 11/26/17 09:00 93 26 H 92 L 11/26/17 08:57 96 24 88 L 11/26/17 08:42 74 11/26/17 08:30 72 11/26/17 07:59 26 H 11/26/17 07:46 97.8 F 93 26 H 147/94 91 L Intake and Output 11/26/17 11/26/17 11/26/17 06:59 14:59 22:59 Other: Weight 58.377 kg GENERAL: The patient is alert and oriented x3, not in any acute distress. Well developed, well nourished. HEENT: Pupils are round and equally reacting to light. EOMI. No scleral icterus. No conjunctival pallor. Normocephalic, atraumatic. No pharyngeal erythema. No thyromegaly. CARDIOVASCULAR: S1 and S2 present. No murmurs, rubs, or gallops. -PULMONARY: Chest is clear to auscultation, bilateral scattered wheezing with prolonged expiratory phase. ABDOMEN: Soft, nontender, nondistended, normoactive bowel sounds. No palpable organomegaly. MUSCULOSKELETAL: No joint swelling or deformity. EXTREMITIES: No cyanosis, clubbing, or pedal edema. NEUROLOGICAL: Gross neurological examination did not reveal any focal deficits. SKIN: No rashes. Results CBC & Chem 7: 11/26/17 08:01 11/26/17 08:01 Labs: Abnormal Lab Results - Last 24 Hours (Table) 11/26/17 11/26/17 Range/Units 08:01 08:01 Hgb 16.1 H (11.4-16.0) gm/dL Hct 49.1 H (34.0-46.0) % Sodium 136 L (137-145) mmol/L Glucose 112 H (74-99) mg/dL AST 38 H (14-36) U/L Assessment and Plan Assessment: Acute COPD exacerbation migraine headache History of coronary artery disease Current heavy smoker Plan: This is a pleasant 57 years old female who presents with acute COPD exacerbation. Labs and medication review. Continue with same medication. Continue with symptomatic treatment. Resume home medication. Monitor lytes and vitals. Critical care/pulmonary consult is appreciated. cardiology consult is already placed. Nicotine patch. IV fluids. Check stool for C. diff. furosemide and pain management. Check hemoglobin A1c and follow-up with the results. GI and DVT prophylaxis. Further recommendations based on the clinical course of the patient GI prophylaxis: Pepcid DVT prophylaxis: Heparin PT/OT: Pending Prognosis is guarded Follow-up labs in the morning Dr. Desir will resume the care of the patient tomorrow
[2017-11-26] MEDS: BUTALB/APAP/CAFF 50-325-40MG TAB PO PRN (17:01)
[2017-11-26] MEDS: NICOTINE 21MG/24HR PATCH TRANSDERM SCH (17:02)
[2017-11-26] MEDS: INSULIN ASPART 100 UNIT/ML 1 ML 10 ML VIAL SQ SCH ×2 (17:27→20:42)
[2017-11-26] MEDS: SODIUM CHLORIDE 0.9% 1,000 ML IV SCH (17:28)
[2017-11-26] MEDS: HYDROcodone/APAP 5-325MG 1 EACH TAB PO PRN (18:32)
[2017-11-26] MEDS: HEPARIN SODIUM,PORCINE 5,000 UNIT/ML 1 ML VIAL SQ SCH (20:42)
[2017-11-26] MEDS: FAMOTIDINE 20 MG/2 ML VIAL IV SCH (20:42)
[2017-11-26 20:43] LABS: Glucose,Whole Blood 161 mg/dL (75-99)
[2017-11-26] MEDS: DOXYCYCLINE 100 MG in SODIUM CHLORIDE 0.9% 100 ML IVPB SCH (22:36)
[2017-11-27] MEDS: LORazepam 0.5 MG TAB PO PRN ×3 (01:15→21:46)
[2017-11-27] MEDS: HYDROcodone/APAP 5-325MG 1 EACH TAB PO PRN ×3 (01:15→21:46)
[2017-11-27] MEDS: methylPREDNISolone SOD SUCCI 125 MG/2 ML VIAL IV SCH ×5 (01:15→23:32)
[2017-11-27] MEDS: MELATONIN 5 MG TABLET PO PRN ×2 (03:30→21:46)
[2017-11-27] MEDS: BUTALB/APAP/CAFF 50-325-40MG TAB PO PRN ×2 (04:16→15:50)
[2017-11-27 06:18] LABS: Basophils % (A) 0 %; Eosinophils % (A) 0 %; HCT 44.3 % (34.0-46.0); HGB 14.7 gm/dL (11.4-16.0); Lymphocytes # (A) 0.5 k/uL (1.0-4.8); Lymphocytes % (A) 8 %; MCH 32.5 pg (25.0-35.0); MCV 98.5 fL (80.0-100.0); Mean Platelet Volume 6.8; Monocytes # (A) 0.2 k/uL (0-1.0); Monocytes % (A) 3 %; Neutrophils # (A) 5.8 k/uL (1.3-7.7); Neutrophils % (A) 88 %; Platelet Count 297 k/uL (150-450); RDW 12.2 % (11.5-15.5); WBC 6.6 k/uL (3.8-10.6)
[2017-11-27 06:25] LABS: Anion Gap 10 mmol/L; Blood Urea Nitrogen 10 mg/dL (7-17); Calcium 9.4 mg/dL (8.4-10.2); Carbon Dioxide 23 mmol/L (22-30); Chloride 101 mmol/L (98-107); Glucose 166 mg/dL (74-99); Potassium 4.8 mmol/L (3.5-5.1); Sodium 134 mmol/L (137-145)
[2017-11-27] MEDS: SODIUM CHLORIDE 0.9% 1,000 ML IV SCH ×2 (06:59→21:47)
[2017-11-27 07:14] LABS: Glucose,Whole Blood 151 mg/dL (75-99)
[2017-11-27] MEDS: IPRATROPIUM-ALBUTEROL 3 ML NEB INHALATION PRN ×3 (07:55→19:27)
--- NOTE | 2017-11-27 07:59 | P.PN ---
Subjective Progress Note Date: 11/27/17 Principal diagnosis: Exacerbation of COPD This is a continue present on a 57-year-old white female essentially admitted for exacerbation of COPD. The patient seems to be stabilizing after being given steroids. She is somewhat anxious to go home but understands that she needs to stabilize first. Appreciate pulmonology input. Probable transfer to general medical surgical floor today No other voiding issues stated. No significant nausea, vomiting or diarrhea stated. Objective - Vital Signs Vital signs: Vital Signs Temp 97.8 F 11/27/17 04:00 Pulse 82 11/27/17 04:00 Resp 16 11/27/17 04:00 BP 140/82 11/27/17 04:00 Pulse Ox 93 L 11/27/17 04:00 Intake & Output 11/26/17 11/27/17 11/27/17 18:59 06:59 18:59 Intake Total 1575 Balance 1575 Weight 58.377 kg 65.5 kg Intake: IV 600 Sodium Chloride 0.9% 1, 600 000 ml @ 75 mls/hr IV . [id number] [facility] Rx#:[id number] Intake, IV Titration 225 Amount Sodium Chloride 0.9% 1, 225 000 ml @ 75 mls/hr IV . [id number] [facility] Rx#:[id number] Oral 750 Other: Voiding Method Toilet Toilet # Voids 1 1 - Constitutional General appearance: Present: thin - EENT Eyes: Absent: abnormal pupil - Neck Neck: Absent: lymphadenopathy - Respiratory Respiratory: bilateral: diminished, wheezing, prolonged expiration - Cardiovascular Rhythm: regular Heart sounds: normal: S1, S2 Abnormal Heart Sounds: Absent: S3 Gallop - Gastrointestinal General gastrointestinal: Present: soft. Absent: tenderness - Musculoskeletal Musculoskeletal: Present: generalized weakness - Psychiatric Psychiatric: Present: A&O x's 3, appropriate affect, intact judgment & insight - Labs CBC & Chem 7: 11/27/17 05:57 11/27/17 05:57 Labs: Abnormal Lab Results - Last 24 Hours (Table) 11/26/17 11/26/17 11/26/17 Range/Units 08:01 08:01 16:30 Hgb 16.1 H (11.4-16.0) gm/dL Hct 49.1 H (34.0-46.0) % Lymphocytes # (1.0-4.8) k/uL Sodium 136 L (137-145) mmol/L Glucose 112 H (74-99) mg/dL POC Glucose (mg/dL) 144 H (75-99) mg/dL AST 38 H (14-36) U/L 11/26/17 11/27/17 11/27/17 Range/Units 20:31 05:57 05:57 Hgb (11.4-16.0) gm/dL Hct (34.0-46.0) % Lymphocytes # 0.5 L (1.0-4.8) k/uL Sodium 134 L (137-145) mmol/L Glucose 166 H (74-99) mg/dL POC Glucose (mg/dL) 161 H (75-99) mg/dL AST (14-36) U/L 11/27/17 Range/Units 07:02 Hgb (11.4-16.0) gm/dL Hct (34.0-46.0) % Lymphocytes # (1.0-4.8) k/uL Sodium (137-145) mmol/L Glucose (74-99) mg/dL POC Glucose (mg/dL) 151 H (75-99) mg/dL AST (14-36) U/L Assessment and Plan (1) COPD with acute exacerbation Current Visit: Yes Status: Acute Code(s): J44.1 - CHRONIC OBSTRUCTIVE PULMONARY DISEASE W (ACUTE) EXACERBATION SNOMED Code(s): 548281416 (2) Coronary atherosclerosis Current Visit: No Status: Acute Code(s): I25.10 - ATHSCL HEART DISEASE OF [place] CORONARY ARTERY W/O ANG PCTRS SNOMED Code(s): 911319760 (3) Smoking Current Visit: No Status: Acute Code(s): F17.200 - NICOTINE DEPENDENCE, UNSPECIFIED, UNCOMPLICATED SNOMED Code(s): 31383202 Plan: Continue current regimen of treatment. Transfer to general medical floor. Reconcile medications as necessary. Check CBC and CMP in a.m. Time with Patient: Less than 30
[2017-11-27] MEDS: HEPARIN SODIUM,PORCINE 5,000 UNIT/ML 1 ML VIAL SQ SCH ×2 (08:42→21:45)
[2017-11-27] MEDS: FAMOTIDINE 20 MG/2 ML VIAL IV SCH (08:42)
--- NOTE | 2017-11-27 08:42 | P.CNPUL ---
History of Present Illness Consult date: 11/27/17 Reason for consult: dyspnea, COPD Chief complaint: Shortness of breath History of present illness: This is a 57-year-old white female patient of Dr. Desir who presented to the emergency department on 11/26/2017 at 07 100, patient symptoms started a week ago, started with an upper respiratory infection progressed to chest congestion and coughing. She denied any fever or chills. Also patient has a history of migraines, and she has had severe migraine. Patient is a current smoker, she smokes one to 2 packs a day for 40+ years. He was diagnosed with COPD by Dr. Desir, and her current maintenance inhalers include Symbicort and albuterol. Not on any oxygen at her baseline. Patient complained of some chest tightness, she is bringing up some sputum. No abdominal pain, no nausea, vomiting no diarrhea. Other medical history includes anxiety, coronary artery disease. Chest x-ray has been reviewed, showed overinflated lungs, compatible with the diagnosis of COPD, right midlung atelectasis, but no acute cardiopulmonary process. Influenza screen was negative, 3 sets of cardiac enzymes and troponins were negative. EKG showed normal sinus rhythm with no acute ST segment/T-wave changes. ProBNP was normal at 72, the rest of blood work was unremarkable. No leukocytosis. Patient was started on empiric antibiotics in the form of doxycycline, nebulized bronchodilators, IV steroids, IV fluids infusing at a rate of 75 ML per hour, patient was given a liter bolus of 0.9 normal saline in the emergency department. Worsening this patient in consultation for diagnosis of COPD exacerbation. Review of Systems All systems: negative Constitutional: Denies chills, Denies fever Eyes: denies blurred vision, denies pain Ears, nose, mouth and throat: Denies headache, Denies sore throat Cardiovascular: Denies chest pain, Denies shortness of breath Respiratory: Reports dyspnea, Reports respiratory infections, Denies cough Gastrointestinal: Denies abdominal pain, Denies diarrhea, Denies nausea, Denies vomiting Genitourinary: Denies dysuria, Denies hematuria Musculoskeletal: Denies myalgias Integumentary: Denies pruritus, Denies rash Neurological: Denies numbness, Denies weakness Psychiatric: Denies anxiety, Denies depression Endocrine: Denies fatigue, Denies weight change Past Medical History Past Medical History: Chest Pain / Angina, COPD Additional Past Medical History / Comment(s): HX migraines,states chronic bronchitis History of Any Multi-Drug Resistant Organisms: None Reported Past Surgical History: Appendectomy, Tubal Ligation Past Anesthesia/Blood Transfusion Reactions: No Reported Reaction Smoking Status: Current every day smoker - Past Family History Brother(s) Family Medical History: Coronary Artery Disease (CAD), Myocardial Infarction ([place] ) Additional Family Medical History / Comment(s): pacemaker Sister(s) Family Medical History: Mitral Valve Prolapse (MVP) Father Additional Family Medical History / Comment(s): "post op mrsa infection- from complications of that" Mother Family Medical History: Cancer Medications and Allergies Home Medications Medication Instructions Recorded Confirmed Type Budesonide-Formot 160-4.5 Mcg 2 puff INHALATION RT-BID 09/07/13 11/26/17 History [Symbicort 160-4.5 Mcg Inhaler] Albuterol Inhaler [Ventolin Hfa 2 puff INHALATION RT-Q6H PRN 10/23/15 11/26/17 History Inhaler] Karli Friend Cold/Cough 1 applic PO DAILY PRN 11/25/16 11/26/17 History LORazepam [Ativan] 0.5 mg PO TID PRN 11/26/17 11/26/17 History Allergies Allergy/AdvReac Type Severity Reaction Status Date / Time No Known Allergies Allergy Verified 11/26/17 12:30 Physical Exam Vitals: Vital Signs Temp Pulse Pulse Resp BP BP Pulse Ox 11/27/17 08:06 81 11/27/17 07:58 86 92 L 11/27/17 04:00 97.8 F 82 16 140/82 93 L 11/27/17 01:00 98.0 F 84 18 123/74 92 L 11/26/17 21:00 85 20 132/78 91 L 11/26/17 20:14 84 11/26/17 20:00 97.7 F 81 14 158/101 94 L 11/26/17 19:59 80 11/26/17 19:00 91 24 158/101 91 L 11/26/17 18:00 89 23 150/92 95 11/26/17 17:00 73 20 150/92 94 L 11/26/17 16:00 97.6 F 81 83 23 150/92 11/26/17 15:28 78 11/26/17 15:17 76 11/26/17 14:00 83 19 140/84 94 L 11/26/17 13:00 82 24 136/89 91 L 11/26/17 12:30 82 23 124/89 92 L 11/26/17 12:00 85 19 93 L 11/26/17 11:30 82 20 90 L 11/26/17 11:23 84 11/26/17 11:14 80 11/26/17 11:11 81 20 111/91 11/26/17 11:00 80 17 90 L 11/26/17 10:30 86 18 90 L 11/26/17 10:00 78 24 11/26/17 09:30 80 23 93 L 11/26/17 09:20 86 25 H 154/89 93 L 11/26/17 09:00 93 26 H 92 L 11/26/17 08:57 96 24 88 L 11/26/17 08:42 74 11/26/17 08:30 72 Intake and Output 11/26/17 11/27/17 11/27/17 22:59 06:59 14:59 Intake Total 225 1350 Balance 225 1350 Intake: IV 600 Sodium Chloride 0.9% 1, 600 000 ml @ 75 mls/hr IV . [id number] [facility] Rx#:[id number] Intake, IV Titration 225 Amount Sodium Chloride 0.9% 1, 225 000 ml @ 75 mls/hr IV . [id number] [facility] Rx#:[id number] Oral 750 Other: Voiding Method Toilet Toilet # Voids 1 1 Weight 58.377 kg 65.5 kg GENERAL EXAM: Alert, pleasant 57-year-old female, comfortable in no apparent distress. HEAD: Normocephalic/atraumatic. EYES: Normal reaction of pupils, equal size. Conjunctiva pink, sclera white. NOSE: Clear with pink turbinates. THROAT: No erythema or exudates. NECK: No masses, no JVD, no thyroid enlargement, no adenopathy. CHEST: No chest wall deformity. Symmetrical expansion. LUNGS: Equal air entry with diminished breath sounds, but no rhonchi, no wheezes noted CVS: Regular rate and rhythm, normal S1 and S2, no gallops, no murmurs, no rubs ABDOMEN: Soft, nontender. No hepatosplenomegaly, normal bowel sounds, no guarding or rigidity. EXTREMITIES: No clubbing, no edema, no cyanosis, 2+ pulses and upper and lower extremities. MUSCULOSKELETAL: Muscle strength and tone normal. SPINE: No scoliosis or deformity SKIN: No rashes CENTRAL NERVOUS SYSTEM: Alert and oriented -3. No focal deficits, tone is normal in all 4 extremities. PSYCHIATRIC: Alert and oriented -3. Appropriate affect. Intact judgment and insight. Results - Laboratory Findings CBC and BMP: 11/27/17 05:57 11/27/17 05:57 PT/INR, D-dimer PT 9.7 sec (9.0-12.0) 11/26/17 08:01 INR 1.0 (<1.2) 11/26/17 08:01 Abnormal lab findings: Abnormal Labs 11/26/17 11/26/17 11/26/17 08:01 08:01 16:30 Hgb 16.1 H Hct 49.1 H Lymphocytes # Sodium 136 L Glucose 112 H POC Glucose (mg/dL) 144 H AST 38 H 11/26/17 11/27/17 11/27/17 20:31 05:57 05:57 Hgb Hct Lymphocytes # 0.5 L Sodium 134 L Glucose 166 H POC Glucose (mg/dL) 161 H AST 11/27/17 07:02 Hgb Hct Lymphocytes # Sodium Glucose POC Glucose (mg/dL) 151 H AST - Diagnostic Findings Chest x-ray: report reviewed, image reviewed Additional studies: EKG reviewed Assessment and Plan Plan: Assessment: #1. Acute exacerbation of chronic obstructive pulmonary disease #2. Chest tightness, 3 sets of cardiac enzymes and troponins were negative, EKG without acute ischemic changes #3. Chronic and ongoing nicotine dependence, patient carries a 40+-pack-year smoking history #4. History of coronary artery disease #5. Anxiety Plan: Continue IV steroids, continue nebulized bronchodilators, continue empiric antibiotics. Patient is a selective overflow patient. Hemodynamic was stable, afebrile, no acute complaints. Increase activity as tolerated. Chest x-ray has been reviewed, showed no acute process. Smoking cessation was completed. I performed a history & physical examination of the patient and discussed their management with my nurse practitioner, Narcisa Serna. I reviewed the nurse practitioner's note and agree with the documented findings and plan of care. Lung sounds are diminished. The findings and the impression was discussed with the patient. I attest to the documentation by the nurse practitioner. Time with Patient: Greater than 30
[2017-11-27] MEDS: INSULIN ASPART 100 UNIT/ML 1 ML 10 ML VIAL SQ SCH ×4 (08:45→21:45)
[2017-11-27] MEDS: DOXYCYCLINE 100 MG in SODIUM CHLORIDE 0.9% 100 ML IVPB SCH ×2 (08:46→21:49)
[2017-11-27] MEDS: CITALOPRAM HYDROBROMIDE 20 MG TAB PO SCH (08:46)
[2017-11-27 10:21] VITALS: BMI 21.9
--- NOTE | 2017-11-27 10:30 | P.CRDCN ---
History of Present Illness Consult date: 11/27/17 Chief complaint: Chest pain History of present illness: This is a pleasant 57-year-old female patient with a past medical history significant for CAD according to her based on heart catheterization was performed about 10 years ago showing coronary calcifications, known chronic obstructive pulmonary disease, as well as significant history of smoking and the patient continues to smoke, presented to the hospital complaining of shortness of breath and a chest discomfort. She was in her usual state of health until about this past Monday when she started experiencing symptoms of upper respiratory infection consistent of sore throat and some cough. The symptoms did not go away and over the next few days she started experiencing shortness of breath even with minimal exertion. The shortness of breath has progressed. It was associated with cough productive of white sputum. No fever and no chills. For the last few days before she presented to the hospital she is experiencing chest discomfort described as a chest pressure in the mid of the chest. No radiation to the arm or neck or shoulders andhis stated symptoms. The patient does have significant family history of coronary artery disease with her brother with does have coronary artery stenting. The EKG showed sinus rhythm without any ischemic changes. 3 sets of cardiac enzymes came in to be unremarkable. Currently she is getting treated for COPD exacerbation as well as pneumonia. She is tachycardic with a harvesting heart rate around 90-100 beats per minutes. She's also slightly hypertensive. I would consider a conservative medical approach at this point. I am going to a small dose of calcium channel kasey to slow the heart rate and treat her blood pressure. Obtain an echocardiogram was Doppler. Severe underlying coronary artery disease to be ruled out definitely probably as an outpatient in the absence of any chest pain or chest discomfort at this point. Past Medical History Past Medical History: Chest Pain / Angina, COPD Additional Past Medical History / Comment(s): HX migraines,states chronic bronchitis History of Any Multi-Drug Resistant Organisms: None Reported Past Surgical History: Appendectomy, Tubal Ligation Past Anesthesia/Blood Transfusion Reactions: No Reported Reaction Smoking Status: Current every day smoker - Past Family History Brother(s) Family Medical History: Coronary Artery Disease (CAD), Myocardial Infarction ([place] ) Additional Family Medical History / Comment(s): pacemaker Sister(s) Family Medical History: Mitral Valve Prolapse (MVP) Father Additional Family Medical History / Comment(s): "post op mrsa infection- from complications of that" Mother Family Medical History: Cancer Medications and Allergies Home Medications Medication Instructions Recorded Confirmed Type Budesonide-Formot 160-4.5 Mcg 2 puff INHALATION RT-BID 09/07/13 11/26/17 History [Symbicort 160-4.5 Mcg Inhaler] Albuterol Inhaler [Ventolin Hfa 2 puff INHALATION RT-Q6H PRN 10/23/15 11/26/17 History Inhaler] Karli [place] Cold/Cough 1 applic PO DAILY PRN 11/25/16 11/26/17 History LORazepam [Ativan] 0.5 mg PO TID PRN 11/26/17 11/26/17 History Allergies Allergy/AdvReac Type Severity Reaction Status Date / Time No Known Allergies Allergy Verified 11/26/17 12:30 Physical Exam Vitals: Vital Signs Temp Pulse Pulse Resp BP BP Pulse Ox 11/27/17 09:00 97 32 H 135/81 91 L 11/27/17 08:06 81 11/27/17 08:00 97.8 F 82 16 147/84 11/27/17 07:58 86 92 L 11/27/17 07:00 66 21 147/84 94 L 11/27/17 04:00 97.8 F 82 16 140/82 93 L 11/27/17 01:00 98.0 F 84 18 123/74 92 L 11/26/17 21:00 85 20 132/78 91 L 11/26/17 20:14 84 11/26/17 20:00 97.7 F 81 14 158/101 94 L 11/26/17 19:59 80 11/26/17 19:00 91 24 158/101 91 L 11/26/17 18:00 89 23 150/92 95 11/26/17 17:00 73 20 150/92 94 L 11/26/17 16:00 97.6 F 81 83 23 150/92 11/26/17 15:28 78 11/26/17 15:17 76 11/26/17 14:00 83 19 140/84 94 L 11/26/17 13:00 82 24 136/89 91 L 11/26/17 12:30 82 23 124/89 92 L 11/26/17 12:00 85 19 93 L 11/26/17 11:30 82 20 90 L 11/26/17 11:23 84 11/26/17 11:14 80 11/26/17 11:11 81 20 111/91 11/26/17 11:00 80 17 90 L 11/26/17 10:30 86 18 90 L Intake and Output 11/26/17 11/27/17 11/27/17 22:59 06:59 14:59 Intake Total 225 1350 375 Balance 225 1350 375 Intake: IV 600 375 Sodium Chloride 0.9% 1, 600 375 000 ml @ 75 mls/hr IV . [id number] [facility] Rx#:[id number] Intake, IV Titration 225 Amount Sodium Chloride 0.9% 1, 225 000 ml @ 75 mls/hr IV . [id number] [facility] Rx#:[id number] Oral 750 Other: Voiding Method Toilet Toilet # Voids 1 1 1 Weight 58.377 kg 65.5 kg 65.5 kg - Constitutional General appearance: no acute distress - Respiratory Respiratory: bilateral: CTA - Cardiovascular Rhythm: regular Heart sounds: normal: S1, S2 Results 11/27/17 05:57 11/27/17 05:57 Cardiac Enzymes 11/26/17 11/27/17 Range/Units 18:44 00:20 Troponin I <0.012 <0.012 (0.000-0.034) ng/mL CBC 11/27/17 Range/Units 05:57 WBC 6.6 (3.8-10.6) k/uL RBC 4.50 (3.80-5.40) m/uL Hgb 14.7 (11.4-16.0) gm/dL Hct 44.3 (34.0-46.0) % Plt Count 297 (150-450) k/uL Comprehensive Metabolic Panel 11/27/17 Range/Units 05:57 Sodium 134 L (137-145) mmol/L Potassium 4.8 (3.5-5.1) mmol/L Chloride 101 (98-107) mmol/L Carbon Dioxide 23 (22-30) mmol/L BUN 10 (7-17) mg/dL Creatinine 0.60 (0.52-1.04) mg/dL Glucose 166 H (74-99) mg/dL Calcium 9.4 (8.4-10.2) mg/dL Current Medications Generic Name Dose Route Start Last Admin Trade Name Freq PRN Reason Stop Dose Admin Acetaminophen/Butalbital/Caffeine 1 each 11/26/17 16:32 11/27/17 04:16 Fioricet 50-325-40 PO 1 each Q4HR PRN Administration Headache Hydrocodone Bitart/Acetaminophen 1 each 11/26/17 16:34 11/27/17 01:15 [place] 5-325 PO 1 each Q6HR PRN Administration Pain Albuterol/Ipratropium 3 ml 11/26/17 09:16 11/27/17 07:55 Duoneb 0.5 Mg-3 Mg/3 Ml Soln INHALATION 3 ml RT-Q4H PRN Administration Shortness Of Breath Or Wheezing Citalopram Hydrobromide 20 mg 11/27/17 09:00 11/27/17 08:46 Celexa PO 20 mg DAILY [facility] Administration Famotidine 20 mg 11/26/17 21:00 11/27/17 08:42 Pepcid IV 20 mg Q12HR [facility] Administration Heparin Sodium (Porcine) 5,000 unit 11/26/17 21:00 11/27/17 08:42 Heparin SQ 5,000 unit Q12HR [facility] Administration Doxycycline Hyclate 100 mg/ 100 mls @ 66.67 mls/hr 11/26/17 21:00 11/27/17 08 :46 Sodium Chloride IVPB 66.67 mls/hr Q12HR [facility] Administration Sodium Chloride 1,000 mls @ 75 mls/hr 11/26/17 16:45 11/27/17 06:59 Saline 0.9% IV 75 mls/hr .[id number] [facility] Administration Insulin Aspart 0 unit 11/26/17 17:30 11/27/17 08:45 Novolog SQ 1 unit ACHS [facility] Administration Protocol Lorazepam 0.5 mg 11/26/17 19:49 11/27/17 09:47 Ativan PO 0.5 mg TID PRN Administration Anxiety Melatonin 10 mg 11/26/17 19:47 11/27/17 03:30 Melatonin PO 10 mg HS PRN Administration Insomnia Methylprednisolone Sodium Succinate 60 mg 11/26/17 12:00 11/27/17 06:59 Solu-Medrol IV 60 mg Q6HR [facility] Administration Nicotine 1 patch 11/26/17 17:00 11/26/17 17:02 Habitrol 21mg/24hr Patch TRANSDERM 1 patch Q24H [facility] Administration Intake and Output 11/26/17 11/27/17 11/27/17 22:59 06:59 14:59 Intake Total 225 1350 375 Balance 225 1350 375 Intake: IV 600 375 Sodium Chloride 0.9% 1, 600 375 000 ml @ 75 mls/hr IV . [id number] [facility] Rx#:[id number] Intake, IV Titration 225 Amount Sodium Chloride 0.9% 1, 225 000 ml @ 75 mls/hr IV . [id number] [facility] Rx#:[id number] Oral 750 Other: Voiding Method Toilet Toilet # Voids 1 1 1 Weight 58.377 kg 65.5 kg 65.5 kg Patient Weight 11/28/17 06:59 Weight 65.5 kg 11/27/17 05:57 11/27/17 05:57 Assessment and Plan Assessment: Assessment #1 acute exacerbation of COPD #2 pneumonia #3 chest discomfort #4 significant history of smoking Plan #1 acute coronary event was ruled out #2 start the patient on calcium channel kasey with Cardizem #3 obtain an echocardiogram was Doppler #4 severe underlying coronary artery disease to be ruled out probably as an outpatient with a stress test #5 follow-up with the patient Thank you for allowing us participate in her care and we'll continue following up with the patient
[2017-11-27 12:12] LABS: Glucose,Whole Blood 125 mg/dL (75-99)
[2017-11-27 13:51] LABS: Hemoglobin A1C 5.6 % (4.0-6.0)
[2017-11-27] MEDS: DILTIAZEM ORAL 30 MG TAB PO SCH ×2 (15:51→21:47)
[2017-11-27 17:34] LABS: Glucose,Whole Blood 112 mg/dL (75-99)
[2017-11-27] MEDS: NICOTINE 21MG/24HR PATCH TRANSDERM SCH (18:06)
[2017-11-27] MEDS ORDERED: ZOLPIDEM 5 MG TAB PO PRN (18:12)
--- NOTE | 2017-11-27 18:45 | ECHOF ---
Referral Reason:chest pain MEASUREMENTS -------- HEIGHT: 172.7 cm WEIGHT: 65.3 kg BP: 135/81 IVSd: 1.2 cm (0.6 - 1.1) LVIDd: 2.4 cm (3.9 - 5.3) LVPWd: 1.3 cm (0.6 - 1.1) IVSs: 1.3 cm LVIDs: 1.6 cm LVPWs: 1.2 cm RVIDd: 2.3 cm (< 3.3) Ao Diam: 3.4 cm (2.0 - 3.7) LA Diam: 2.9 cm (2.7 - 3.8) AV Cusp: 2.0 cm (1.5 - 2.6) EPSS: 0.4 cm MV E Pasquale: 1.00 m/s MV DecT: 186 ms MV A Pasquale: 0.84 m/s MV E/A Ratio: 1.19 RAP: 15.00 mmHg RVSP: 39.40 mmHg MV EF SLOPE: 118.22 mm/s (70 - 150) MV EXCURSION: 16.31 mm (> 18.000) FINDINGS -------- Sinus rhythm with extra systolic beats. This was a technically good study. The left ventricular size is normal. There is mild concentric left ventricular hypertrophy. Overa ll left ventricular systolic function is normal with, an EF between 55 - 60 %. The right ventricle is normal in size and function. The left atrium is normal in size. The right atrium is normal in size. The aortic valve is trileaflet, and appears structurally normal. No aortic stenosis or regurgitation. The mitral valve leaflets are mildly thickened. Mild mitral annular calcification present. Mild m itral regurgitation is present. Mild tricuspid regurgitation present. There is mild pulmonary hypertension. The right ventricular systolic pressure, as measured by Doppler, is 39.40mmHg. Pulmonic valve appears structurally normal. The aortic root size is normal. The inferior vena cava is mildly dilated. The pericardium is normal. CONCLUSIONS -------- 1. Sinus rhythm with extra systolic beats. 2. This was a technically good study. 3. The left ventricular size is normal. 4. There is mild concentric left ventricular hypertrophy. 5. Overall left ventricular systolic function is normal with, an EF between 55 - 60 %. 6. The right ventricle is normal in size and function. 7. The left atrium is normal in size. 8. The right atrium is normal in size. 9. The aortic valve is trileaflet, and appears structurally normal. No aortic stenosis or regurgitati on. 10. The mitral valve leaflets are mildly thickened. 11. Mild mitral annular calcification present. 12. Mild mitral regurgitation is present. 13. Mild tricuspid regurgitation present. 14. There is mild pulmonary hypertension. 15. The right ventricular systolic pressure, as measured by Doppler, is 39.40mmHg. 16. Pulmonic valve appears structurally normal. 17. The aortic root size is normal. 18. The inferior vena cava is mildly dilated. 19. The pericardium is normal. INTEGRITY ENGINEER: Claudia Son RDCS
[2017-11-27] MEDS ORDERED: FAMOTIDINE 20 MG TAB PO SCH (21:00)
[2017-11-27 21:29] LABS: Glucose,Whole Blood 132 mg/dL (75-99)
[2017-11-28] MEDS: BUTALB/APAP/CAFF 50-325-40MG TAB PO PRN ×2 (00:54→10:35)
[2017-11-28] MEDS: HYDROcodone/APAP 5-325MG 1 EACH TAB PO PRN ×3 (02:48→20:05)
[2017-11-28] MEDS: methylPREDNISolone SOD SUCCI 125 MG/2 ML VIAL IV SCH ×4 (05:24→23:38)
[2017-11-28 06:37] LABS: Basophils % (A) 0 %; Eosinophils % (A) 0 %; HGB 14.6 gm/dL (11.4-16.0); Lymphocytes # (A) 0.6 k/uL (1.0-4.8); Lymphocytes % (A) 4 %; MCH 32.1 pg (25.0-35.0); MCHC 32.4 g/dL (31.0-37.0); MCV 99.1 fL (80.0-100.0); Monocytes # (A) 0.4 k/uL (0-1.0); Monocytes % (A) 3 %; Neutrophils # (A) 14.5 k/uL (1.3-7.7); Neutrophils % (A) 93 %; Platelet Count 345 k/uL (150-450); RBC 4.54 m/uL (3.80-5.40); RDW 12.6 % (11.5-15.5); WBC 15.7 k/uL (3.8-10.6)
[2017-11-28 06:47] LABS: ALT 45 U/L (9-52); AST 27 U/L (14-36); Alkaline Phosphatase 80 U/L (38-126); Anion Gap 9 mmol/L; Blood Urea Nitrogen 12 mg/dL (7-17); Calcium 9.7 mg/dL (8.4-10.2); Carbon Dioxide 25 mmol/L (22-30); Chloride 99 mmol/L (98-107); Glucose 101 mg/dL (74-99); Potassium 4.9 mmol/L (3.5-5.1); Sodium 133 mmol/L (137-145); Total Bilirubin 0.4 mg/dL (0.2-1.3); Total Protein 6.7 g/dL (6.3-8.2)
--- NOTE | 2017-11-28 07:05 | P.PN ---
Subjective Progress Note Date: 11/28/17 Principal diagnosis: COPD exacerbation This is a pleasant 57-year-old female patient with a past medical history significant for CAD according to her based on heart catheterization was performed about 10 years ago showing coronary calcifications, known chronic obstructive pulmonary disease, as well as significant history of smoking and the patient continues to smoke, presented to the hospital complaining of shortness of breath and a chest discomfort. She was in her usual state of health until about this past Monday when she started experiencing symptoms of upper respiratory infection consistent of sore throat and some cough. The symptoms did not go away and over the next few days she started experiencing shortness of breath even with minimal exertion. The shortness of breath has progressed. It was associated with cough productive of white sputum. No fever and no chills. For the last few days before she presented to the hospital she is experiencing chest discomfort described as a chest pressure in the mid of the chest. No radiation to the arm or neck or shoulders andhis stated symptoms. The patient does have significant family history of coronary artery disease with her brother with does have coronary artery stenting. The EKG showed sinus rhythm without any ischemic changes. 3 sets of cardiac enzymes came in to be unremarkable. Currently she is getting treated for COPD exacerbation as well as pneumonia. She is tachycardic with a harvesting heart rate around 90-100 beats per minutes. She's also slightly hypertensive. On follow-up with the patient today, 11/28/2017, she is feeling better indeterminable shortness of breath. The only time she has been experiencing chest discomfort is only with cough. Yesterday I did add a small dose of calcium channel kasey with Cardizem at 30 mg by mouth 3 times a day and the blood pressure and heart rate seems to be better controlled. An echocardiogram was performed and revealed normal LV function without any significant valvular abnormalities. We will consider continue the conservative medical approach at this point and the patient need to have a stress test probably as an outpatient to rule out any severe underlying coronary artery disease. Objective - Vital Signs Vital signs: Vital Signs Temp 98.0 F 11/28/17 04:00 Pulse 81 11/28/17 04:00 Resp 22 11/28/17 04:00 BP 140/83 11/28/17 04:00 Pulse Ox 94 L 11/28/17 04:00 Intake & Output 11/27/17 11/28/1718 18:59 06:59 18:59 Intake Total 1125 75 Balance 1125 75 Weight 65.5 kg 67.7 kg Intake: IV 1125 75 Sodium Chloride 0.9% 1, 1125 75 000 ml @ 75 mls/hr IV . [id number] [facility] Rx#:[id number] Other: Voiding Method Toilet Toilet # Voids 1 2 - Constitutional General appearance: Present: no acute distress - Respiratory Respiratory: bilateral: CTA - Cardiovascular Rhythm: regular Heart sounds: normal: S1, S2 - Labs CBC & Chem 7: 11/28/17 05:51 11/28/17 05:51 Labs: Abnormal Lab Results - Last 24 Hours (Table) 11/27/17 11/27/17 11/27/17 Range/Units 07:02 12:00 17:23 WBC (3.8-10.6) k/uL Neutrophils # (1.3-7.7) k/uL Lymphocytes # (1.0-4.8) k/uL Sodium (137-145) mmol/L Creatinine (0.52-1.04) mg/dL Glucose (74-99) mg/dL POC Glucose (mg/dL) 151 H 125 H 112 H (75-99) mg/dL 11/27/17 11/28/17 11/28/17 Range/Units 21:17 05:51 05:51 WBC 15.7 H (3.8-10.6) k/uL Neutrophils # 14.5 H (1.3-7.7) k/uL Lymphocytes # 0.6 L (1.0-4.8) k/uL Sodium 133 L (137-145) mmol/L Creatinine 0.50 L (0.52-1.04) mg/dL Glucose 101 H (74-99) mg/dL POC Glucose (mg/dL) 132 H (75-99) mg/dL Microbiology - Last 24 Hours (Table) 11/26/17 08:01 Blood Culture - Preliminary Blood No Growth after 24 hours Assessment and Plan Assessment: Assessment #1 acute exacerbation of COPD #2 pneumonia #3 chest discomfort #4 significant history of smoking Plan #1 acute coronary event was ruled out #2 continue Cardizem at the current dose #3 the echo revealed normal LV function without valvular abnormalities #4 severe underlying coronary artery disease to be ruled out probably as an outpatient with a stress test #5 follow-up with the patient Thank you for allowing us participate in her care and we'll continue following up with the patient
--- NOTE | 2017-11-28 07:07 | P.PN ---
Subjective Progress Note Date: 11/28/17 Principal diagnosis: COPD exacerbation Progress note dated 11/28/2017 57-year-old female admitted with a diagnosis of an acute COPD exacerbation hypoxemic respiratory failure. The patient also had chest tightness likely related to her underlying COPD as opposed to cardiac disease. She has a history of chronic and ongoing nicotine dependence CAD and anxiety. Currently, she is on O2 at 2 L by nasal cannula and her IVs a saline IV at 75 mL an hour. This can be discontinued. The patient is doing much better today. Feeling much better. Still very short of breath with any activity. She does have chest tightness wheezing and coughing. She's not bringing up much or any phlegm. There is no fever or chills. The chest symptoms are primarily related to her underlying COPD and not cardiac disease at this time. Chest x-ray was consistent with changes of COPD. She was seen in consultation by our team yesterday. Objective - Vital Signs Vital signs: Vital Signs Temp 98.0 F 11/28/17 04:00 Pulse 81 11/28/17 04:00 Resp 22 11/28/17 04:00 BP 140/83 11/28/17 04:00 Pulse Ox 94 L 11/28/17 04:00 Intake & Output 11/27/17 11/28/17 11/28/17 18:59 06:59 18:59 Intake Total 1125 75 Balance 1125 75 Weight 65.5 kg 67.7 kg Intake: IV 1125 75 Sodium Chloride 0.9% 1, 1125 75 000 ml @ 75 mls/hr IV . [id number] [facility] Rx#:[id number] Other: Voiding Method Toilet Toilet # Voids 1 2 - Exam No acute distress, oriented 3. No eli respiratory distress. No audible wheezing. No use of accessory muscles. HEENT examination is grossly unremarkable. Mucous membranes are moist. No oral lesions. Nasal O2 in place at 2 L/m. Neck supple. Full range of motion. No adenopathy thyromegaly or neck vein distention. Cardiovascular examination reveals regular rhythm rate. S1-S2 normal. No S3 or S4. No discernible murmur noted. Lungs reveal severely diminished breath sounds throughout. This some expiratory wheezes. A few scattered expiratory rhonchi. No crackles. Breath sounds are diminished throughout. Breath sounds are equal bilaterally. There is prolongation on forced maneuver. Abdomen soft bowel sounds are heard. No masses or tenderness. Extremities are intact. No cyanosis clubbing or edema. Skin is without rash or lesion. Neurologic examination is brief but nonfocal. - Labs CBC & Chem 7: 11/28/17 05:51 11/28/17 05:51 Labs: Abnormal Lab Results - Last 24 Hours (Table) 11/27/17 11/27/17 11/27/17 Range/Units 07:02 12:00 17:23 WBC (3.8-10.6) k/uL Neutrophils # (1.3-7.7) k/uL Lymphocytes # (1.0-4.8) k/uL Sodium (137-145) mmol/L Creatinine (0.52-1.04) mg/dL Glucose (74-99) mg/dL POC Glucose (mg/dL) 151 H 125 H 112 H (75-99) mg/dL 11/27/17 11/28/17 11/28/17 Range/Units 21:17 05:51 05:51 WBC 15.7 H (3.8-10.6) k/uL Neutrophils # 14.5 H (1.3-7.7) k/uL Lymphocytes # 0.6 L (1.0-4.8) k/uL Sodium 133 L (137-145) mmol/L Creatinine 0.50 L (0.52-1.04) mg/dL Glucose 101 H (74-99) mg/dL POC Glucose (mg/dL) 132 H (75-99) mg/dL Microbiology - Last 24 Hours (Table) 11/26/17 08:01 Blood Culture - Preliminary Blood No Growth after 24 hours Assessment and Plan Assessment: Assessment Acute exacerbation of COPD Acute hypoxemic respiratory failure Chest tightness, likely related to underlying COPD Chronic and ongoing nicotine dependence/tobacco use History of CAD History of anxiety Plan: Plan dated 11/28/2017 The patient's white count is 15.7, likely reactive in nature and also related to underlying steroid use. Her hemoglobin was 14.6 hematocrit 45.0 platelet count 45,000. Sodium 133 potassium 4.9 chloride 99 CO2 25 with a BUN of 12 and a creatinine of 0.50. Liver function tests look relatively normal. Microbiologic studies are negative. Chest x-rays consistent with underlying COPD and some basilar atelectasis particularly on the right lung. Medications are reviewed. Additional recommendations and suggestions are forthcoming. Prognosis is very guarded given her ongoing tobacco use. She does need to follow up with us in the office for complete pulmonary function testing. Additional recommendations and suggestions are forthcoming. Critical care time is 33 minutes Time with Patient: Greater than 30
--- NOTE | 2017-11-28 07:28 | P.PN ---
Subjective Progress Note Date: 11/28/17 Principal diagnosis: Exacerbation of COPD This continue presently 70-year-old white female essentially minute of acute exacerbation of COPD. The patient had underlying episode of hypertension and tachycardia yesterday. Question iatrogenic element versus new onset arrhythmia. The patient states emulating with minimal shortness of breath. No voiding difficulty. Nausea, vomiting or diarrhea is noted. Objective - Vital Signs Vital signs: Vital Signs Temp 98.0 F 11/28/17 04:00 Pulse 81 11/28/17 04:00 Resp 22 11/28/17 04:00 BP 140/83 11/28/17 04:00 Pulse Ox 94 L 11/28/17 04:00 Intake & Output 11/27/17 11/28/17 11/28/17 18:59 06:59 18:59 Intake Total 1125 75 Balance 1125 75 Weight 65.5 kg 67.7 kg Intake: IV 1125 75 Sodium Chloride 0.9% 1, 1125 75 000 ml @ 75 mls/hr IV . [id number] [facility] Rx#:[id number] Other: Voiding Method Toilet Toilet # Voids 1 2 - Constitutional General appearance: Present: thin - EENT Eyes: Absent: abnormal pupil - Respiratory Respiratory: bilateral: diminished, rhonchi, prolonged expiration - Cardiovascular Rhythm: regular Heart sounds: normal: S1, S2 Abnormal Heart Sounds: Absent: S3 Gallop - Gastrointestinal General gastrointestinal: Present: soft. Absent: tenderness - Neurologic Neurologic: Present: CNII-XII intact - Musculoskeletal Musculoskeletal: Present: generalized weakness - Psychiatric Psychiatric: Present: A&O x's 3, appropriate affect - Labs CBC & Chem 7: 11/28/17 05:51 11/28/17 05:51 Labs: Abnormal Lab Results - Last 24 Hours (Table) 11/27/17 11/27/17 11/27/17 Range/Units 12:00 17:23 21:17 WBC (3.8-10.6) k/uL Neutrophils # (1.3-7.7) k/uL Lymphocytes # (1.0-4.8) k/uL Sodium (137-145) mmol/L Creatinine (0.52-1.04) mg/dL Glucose (74-99) mg/dL POC Glucose (mg/dL) 125 H 112 H 132 H (75-99) mg/dL 11/28/17 11/28/17 Range/Units 05:51 05:51 WBC 15.7 H (3.8-10.6) k/uL Neutrophils # 14.5 H (1.3-7.7) k/uL Lymphocytes # 0.6 L (1.0-4.8) k/uL Sodium 133 L (137-145) mmol/L Creatinine 0.50 L (0.52-1.04) mg/dL Glucose 101 H (74-99) mg/dL POC Glucose (mg/dL) (75-99) mg/dL Microbiology - Last 24 Hours (Table) 11/26/17 08:01 Blood Culture - Preliminary Blood No Growth after 24 hours Assessment and Plan (1) COPD with acute exacerbation Current Visit: Yes Status: Acute Code(s): J44.1 - CHRONIC OBSTRUCTIVE PULMONARY DISEASE W (ACUTE) EXACERBATION SNOMED Code(s): 519021579 (2) Coronary atherosclerosis Current Visit: No Status: Acute Code(s): I25.10 - ATHSCL HEART DISEASE OF [place] CORONARY ARTERY W/O ANG PCTRS SNOMED Code(s): 094251000 (3) Smoking Current Visit: Yes Status: Acute Code(s): F17.200 - NICOTINE DEPENDENCE, UNSPECIFIED, UNCOMPLICATED SNOMED Code(s): 18706835 Plan: Continue current regimen or treatment. Anticipate transfer to selective care unit. Check CBC and CMP in a.m. Appreciate input from cardiology and engineering systems analyst/pulmonology. See orders otherwise. Prognosis improving. Time with Patient: Less than 30
[2017-11-28 07:33] LABS: Glucose,Whole Blood 130 mg/dL (75-99)
[2017-11-28] MEDS: SYMBICORT 160-4.5 MCG INHALER INHALATION SCH ×2 (07:59→21:32)
[2017-11-28] MEDS: DILTIAZEM ORAL 30 MG TAB PO SCH ×3 (08:18→21:24)
[2017-11-28] MEDS: HEPARIN SODIUM,PORCINE 5,000 UNIT/ML 1 ML VIAL SQ SCH ×2 (08:18→20:06)
[2017-11-28] MEDS: INSULIN ASPART 100 UNIT/ML 1 ML 10 ML VIAL SQ SCH ×4 (08:18→20:08)
[2017-11-28] MEDS: PANTOPRAZOLE 40 MG TABLET PO SCH (08:18)
[2017-11-28] MEDS: CITALOPRAM HYDROBROMIDE 20 MG TAB PO SCH (08:18)
[2017-11-28] MEDS: DOXYCYCLINE 100 MG CAP PO SCH ×2 (10:36→20:06)
[2017-11-28 12:04] LABS: Glucose,Whole Blood 118 mg/dL (75-99)
[2017-11-28] MEDS: IPRATROPIUM-ALBUTEROL 3 ML NEB INHALATION PRN (12:36)
[2017-11-28] MEDS: LORazepam 0.5 MG TAB PO PRN (13:50)
[2017-11-28] MEDS: NICOTINE 21MG/24HR PATCH TRANSDERM SCH (17:44)
[2017-11-28 17:46] LABS: Glucose,Whole Blood 168 mg/dL (75-99)
[2017-11-28 19:59] LABS: Glucose,Whole Blood 174 mg/dL (75-99)
[2017-11-28] MEDS: ZOLPIDEM 10 MG TAB PO PRN (20:05)
[2017-11-29] MEDS: BENZONATATE 100 MG CAP PO PRN (01:20)
[2017-11-29] MEDS: LORazepam 0.5 MG TAB PO PRN ×3 (01:20→20:42)
[2017-11-29] MEDS: BUTALB/APAP/CAFF 50-325-40MG TAB PO PRN ×2 (01:22→12:43)
[2017-11-29 05:33] LABS: Basophils % (A) 0 %; Eosinophils % (A) 0 %; HCT 44.6 % (34.0-46.0); HGB 14.7 gm/dL (11.4-16.0); Lymphocytes # (A) 0.6 k/uL (1.0-4.8); Lymphocytes % (A) 5 %; MCH 32.9 pg (25.0-35.0); MCHC 32.9 g/dL (31.0-37.0); MCV 100.2 fL (80.0-100.0); Mean Platelet Volume 7.1; Monocytes # (A) 0.4 k/uL (0-1.0); Monocytes % (A) 3 %; Neutrophils # (A) 10.8 k/uL (1.3-7.7); Neutrophils % (A) 91 %; Platelet Count 338 k/uL (150-450); RBC 4.45 m/uL (3.80-5.40); RDW 12.4 % (11.5-15.5); WBC 11.8 k/uL (3.8-10.6)
[2017-11-29 05:44] LABS: ALT 38 U/L (9-52); AST 25 U/L (14-36); Albumin 3.6 g/dL (3.5-5.0); Alkaline Phosphatase 80 U/L (38-126); Anion Gap 8 mmol/L; Blood Urea Nitrogen 15 mg/dL (7-17); Calcium 9.4 mg/dL (8.4-10.2); Carbon Dioxide 26 mmol/L (22-30); Chloride 98 mmol/L (98-107); Glucose 128 mg/dL (74-99); Potassium 4.5 mmol/L (3.5-5.1); Sodium 132 mmol/L (137-145); Total Bilirubin 0.3 mg/dL (0.2-1.3); Total Protein 6.1 g/dL (6.3-8.2)
--- NOTE | 2017-11-29 05:53 | P.PN ---
Subjective Progress Note Date: 11/29/17 Principal diagnosis: COPD exacerbation This is a pleasant 57-year-old female patient with a past medical history significant for CAD according to her based on heart catheterization was performed about 10 years ago showing coronary calcifications, known chronic obstructive pulmonary disease, as well as significant history of smoking and the patient continues to smoke, presented to the hospital complaining of shortness of breath and a chest discomfort. She was in her usual state of health until about this past Monday when she started experiencing symptoms of upper respiratory infection consistent of sore throat and some cough. The symptoms did not go away and over the next few days she started experiencing shortness of breath even with minimal exertion. The shortness of breath has progressed. It was associated with cough productive of white sputum. No fever and no chills. For the last few days before she presented to the hospital she is experiencing chest discomfort described as a chest pressure in the mid of the chest. No radiation to the arm or neck or shoulders andhis stated symptoms. The EKG showed sinus rhythm without any ischemic changes. 3 sets of cardiac enzymes came in to be unremarkable. On follow-up with the patient today, November 292017, she still not feeling well. She stated that she still short of breath. She still have mild bilateral expiratory wheezing as well as crackles bilaterally but her breathing sounds are better. The cough seems to be better. The tachycardia has improved. She continues to be on Cardizem by mouth. The echocardiogram revealed normal LV function with mild MR, mild TR, and mild pulmonary hypertension. Objective - Vital Signs Vital signs: Vital Signs Temp 97.2 F L 11/29/17 00:00 Pulse 63 11/29/17 00:00 Resp 20 11/29/17 00:00 BP 134/79 11/29/17 00:00 Pulse Ox 92 L 11/29/17 00:00 Intake & Output 11/28/17 11/28/17 11/29/17 06:59 18:59 06:59 Intake Total 75 1440 1105 Balance 75 1440 1105 Weight 67.7 kg 67.4 kg Intake: IV 75 160 Sodium Chloride 0.9% 1, 75 160 000 ml @ 75 mls/hr IV . [id number] [facility] Rx#:[id number] Oral 1280 1105 Other: Voiding Method Toilet Toilet Toilet # Voids 2 3 3 - Constitutional General appearance: Present: no acute distress - Respiratory Respiratory: bilateral: rales, wheezing - Cardiovascular Rhythm: regular Heart sounds: normal: S1, S2 - Labs CBC & Chem 7: 11/29/17 05:04 11/29/17 05:04 Labs: Abnormal Lab Results - Last 24 Hours (Table) 11/28/17 11/28/17 11/28/17 Range/Units 05:51 05:51 07:22 WBC 15.7 H (3.8-10.6) k/uL MCV (80.0-100.0) fL Neutrophils # 14.5 H (1.3-7.7) k/uL Lymphocytes # 0.6 L (1.0-4.8) k/uL Sodium 133 L (137-145) mmol/L Creatinine 0.50 L (0.52-1.04) mg/dL Glucose 101 H (74-99) mg/dL POC Glucose (mg/dL) 130 H (75-99) mg/dL Total Protein (6.3-8.2) g/dL 11/28/17 11/28/17 11/28/17 Range/Units 11:53 17:35 19:48 WBC (3.8-10.6) k/uL MCV (80.0-100.0) fL Neutrophils # (1.3-7.7) k/uL Lymphocytes # (1.0-4.8) k/uL Sodium (137-145) mmol/L Creatinine (0.52-1.04) mg/dL Glucose (74-99) mg/dL POC Glucose (mg/dL) 118 H 168 H 174 H (75-99) mg/dL Total Protein (6.3-8.2) g/dL 11/29/17 11/29/17 Range/Units 05:04 05:04 WBC 11.8 H (3.8-10.6) k/uL MCV 100.2 H (80.0-100.0) fL Neutrophils # 10.8 H (1.3-7.7) k/uL Lymphocytes # 0.6 L (1.0-4.8) k/uL Sodium 132 L (137-145) mmol/L Creatinine (0.52-1.04) mg/dL Glucose 128 H (74-99) mg/dL POC Glucose (mg/dL) (75-99) mg/dL Total Protein 6.1 L (6.3-8.2) g/dL Microbiology - Last 24 Hours (Table) 11/26/17 08:01 Blood Culture - Preliminary Blood No Growth after 48 hours Assessment and Plan Assessment: Assessment #1 acute exacerbation of COPD #2 pneumonia #3 chest discomfort #4 significant history of smoking Plan #1 continue the current medical regimen. #2 continue Cardizem at the current dose #3 the echo revealed normal LV function without valvular abnormalities #4 severe underlying coronary artery disease to be ruled out probably as an outpatient with a stress test #5 follow-up with the patient Thank you for allowing us participate in her care and we'll continue following up with the patient
[2017-11-29] MEDS: methylPREDNISolone SOD SUCCI 125 MG/2 ML VIAL IV SCH (06:27)
[2017-11-29 07:29] LABS: Glucose,Whole Blood 114 mg/dL (75-99)
[2017-11-29] MEDS: INSULIN ASPART 100 UNIT/ML 1 ML 10 ML VIAL SQ SCH ×4 (07:30→21:04)
[2017-11-29] MEDS: HYDROcodone/APAP 5-325MG 1 EACH TAB PO PRN ×2 (07:31→15:23)
[2017-11-29] MEDS: PANTOPRAZOLE 40 MG TABLET PO SCH (07:31)
--- NOTE | 2017-11-29 08:13 | P.PN ---
Subjective Principal diagnosis: Exacerbation of COPD This is a continue present 57-year-old white female essentially admitted for exacerbation of COPD having issues with some tachycardia and hypertension. Appreciate pulmonology and cardiology input. She clinically does not feel improved as compared to yesterday except for the fact that her sputum is now somewhat more clear. More cough is noted. Difficulty resting. Minimal ambulation is noted. The patient is tolerating diet properly. Objective - Vital Signs Vital signs: Vital Signs Temp 97.8 F 11/29/17 04:00 Pulse 60 11/29/17 06:00 Resp 17 11/29/17 06:00 BP 157/89 11/29/17 06:00 Pulse Ox 93 L 11/29/17 06:00 Intake & Output 11/28/17 11/29/17 11/29/17 18:59 06:59 18:59 Intake Total 1440 1105 Balance 1440 1105 Weight 67.4 kg Intake: IV 160 Sodium Chloride 0.9% 1, 160 000 ml @ 75 mls/hr IV . [id number] [facility] Rx#:[id number] Oral 1280 1105 Other: Voiding Method Toilet Toilet # Voids 3 3 - Constitutional General appearance: Present: thin - EENT Eyes: Absent: abnormal pupil - Neck Neck: Absent: lymphadenopathy - Respiratory Respiratory: bilateral: diminished, rhonchi - Cardiovascular Rhythm: regular Heart sounds: abnormal: S1 Abnormal Heart Sounds: Absent: S3 Gallop - Gastrointestinal General gastrointestinal: Present: soft. Absent: splenomegaly, tenderness - Integumentary Integumentary: Absent: cyanotic - Neurologic Neurologic: Present: CNII-XII intact - Musculoskeletal Musculoskeletal: Present: generalized weakness - Psychiatric Psychiatric: Present: A&O x's 3, appropriate affect - Labs CBC & Chem 7: 11/29/17 05:04 11/29/17 05:04 Labs: Abnormal Lab Results - Last 24 Hours (Table) 11/28/17 11/28/17 11/28/17 Range/Units 11:53 17:35 19:48 WBC (3.8-10.6) k/uL MCV (80.0-100.0) fL Neutrophils # (1.3-7.7) k/uL Lymphocytes # (1.0-4.8) k/uL Sodium (137-145) mmol/L Glucose (74-99) mg/dL POC Glucose (mg/dL) 118 H 168 H 174 H (75-99) mg/dL Total Protein (6.3-8.2) g/dL 11/29/17 11/29/17 11/29/17 Range/Units 05:04 05:04 07:17 WBC 11.8 H (3.8-10.6) k/uL MCV 100.2 H (80.0-100.0) fL Neutrophils # 10.8 H (1.3-7.7) k/uL Lymphocytes # 0.6 L (1.0-4.8) k/uL Sodium 132 L (137-145) mmol/L Glucose 128 H (74-99) mg/dL POC Glucose (mg/dL) 114 H (75-99) mg/dL Total Protein 6.1 L (6.3-8.2) g/dL Microbiology - Last 24 Hours (Table) 11/26/17 08:01 Blood Culture - Preliminary Blood No Growth after 48 hours Assessment and Plan (1) COPD with acute exacerbation Current Visit: Yes Status: Acute Code(s): J44.1 - CHRONIC OBSTRUCTIVE PULMONARY DISEASE W (ACUTE) EXACERBATION SNOMED Code(s): 918865672 (2) Coronary atherosclerosis Current Visit: No Status: Acute Code(s): I25.10 - ATHSCL HEART DISEASE OF [place] CORONARY ARTERY W/O ANG PCTRS SNOMED Code(s): 194302356 (3) Smoking Current Visit: Yes Status: Acute Code(s): F17.200 - NICOTINE DEPENDENCE, UNSPECIFIED, UNCOMPLICATED SNOMED Code(s): 39357729 Plan: Continue current regimen of treatment including updrafts. Continue Cardizem. Watch blood pressure closely. We'll go ahead and start some Tussionex for symptomatically cough. Otherwise, check CBC and CMP and chest x-ray in a.m. Minimal improvement is otherwise noted. She orders otherwise. Time with Patient: Less than 30
[2017-11-29] MEDS: CITALOPRAM HYDROBROMIDE 20 MG TAB PO SCH (08:14)
[2017-11-29] MEDS: HEPARIN SODIUM,PORCINE 5,000 UNIT/ML 1 ML VIAL SQ SCH ×2 (08:14→20:42)
[2017-11-29] MEDS: DILTIAZEM ORAL 30 MG TAB PO SCH ×3 (08:14→21:05)
[2017-11-29] MEDS: DOXYCYCLINE 100 MG CAP PO SCH ×2 (08:14→21:04)
--- NOTE | 2017-11-29 08:22 | P.PN ---
Subjective Progress Note Date: 11/29/17 Principal diagnosis: Acute COPD exacerbation. Progress note dated 11/28/2017 57-year-old female admitted with a diagnosis of an acute COPD exacerbation hypoxemic respiratory failure. The patient also had chest tightness likely related to her underlying COPD as opposed to cardiac disease. She has a history of chronic and ongoing nicotine dependence CAD and anxiety. Currently, she is on O2 at 2 L by nasal cannula and her IVs a saline IV at 75 mL an hour. This can be discontinued. The patient is doing much better today. Feeling much better. Still very short of breath with any activity. She does have chest tightness wheezing and coughing. She's not bringing up much or any phlegm. There is no fever or chills. The chest symptoms are primarily related to her underlying COPD and not cardiac disease at this time. Chest x-ray was consistent with changes of COPD. She was seen in consultation by our team yesterday. On 11/29/2017 patient seen in follow-up in intensive care unit. She states she still short of breath with any exertion, has a loose congested cough, at times is able to bring up some sputum. Room air pulse ox is 93-97%, she is afebrile, hemodynamically stable. Lung sounds reveal some crackles at the left lower base. No new chest x-rays. Patient doesn't does not feel that she is feeling improved since she came in. Labs have been reviewed, hemoglobin 11.8, hemoglobin is 14.7, sodium is 132, the rest of electrolytes and renal profile are within normal limits. Blood cultures have been negative after 48 hour venecia. Objective - Vital Signs Vital signs: Vital Signs Temp 97.8 F 11/29/17 04:00 Pulse 60 11/29/17 06:00 Resp 17 11/29/17 06:00 BP 157/89 11/29/17 06:00 Pulse Ox 93 L 11/29/17 06:00 Intake & Output 11/28/17 11/29/17 11/29/17 18:59 06:59 18:59 Intake Total 1440 1105 Balance 1440 1105 Weight 67.4 kg Intake: IV 160 Sodium Chloride 0.9% 1, 160 000 ml @ 75 mls/hr IV . [id number] [facility] Rx#:[id number] Oral 1280 1105 Other: Voiding Method Toilet Toilet # Voids 3 3 - Exam GENERAL EXAM: Alert, tearful, 57-year-old white female comfortable in no apparent distress. HEAD: Normocephalic/atraumatic. EYES: Normal reaction of pupils, equal size. Conjunctiva pink, sclera white. NOSE: Clear with pink turbinates. THROAT: No erythema or exudates. NECK: No masses, no JVD, no thyroid enlargement, no adenopathy. CHEST: No chest wall deformity. Symmetrical expansion. LUNGS: Equal air entry with crackles at the left lower base posteriorly, but no wheeze, rhonchi or dullness. CVS: Regular rate and rhythm, normal S1 and S2, no gallops, no murmurs, no rubs ABDOMEN: Soft, nontender. No hepatosplenomegaly, normal bowel sounds, no guarding or rigidity. EXTREMITIES: No clubbing, no edema, no cyanosis, 2+ pulses and upper and lower extremities. MUSCULOSKELETAL: Muscle strength and tone normal. SPINE: No scoliosis or deformity SKIN: No rashes CENTRAL NERVOUS SYSTEM: Alert and oriented -3. No focal deficits, tone is normal in all 4 extremities. PSYCHIATRIC: Alert and oriented -3. Appropriate affect. Intact judgment and insight. - Labs CBC & Chem 7: 11/29/17 05:04 11/29/17 05:04 Labs: Abnormal Lab Results - Last 24 Hours (Table) 11/28/17 11/28/17 11/28/17 Range/Units 11:53 17:35 19:48 WBC (3.8-10.6) k/uL MCV (80.0-100.0) fL Neutrophils # (1.3-7.7) k/uL Lymphocytes # (1.0-4.8) k/uL Sodium (137-145) mmol/L Glucose (74-99) mg/dL POC Glucose (mg/dL) 118 H 168 H 174 H (75-99) mg/dL Total Protein (6.3-8.2) g/dL 11/29/17 11/29/17 11/29/17 Range/Units 05:04 05:04 07:17 WBC 11.8 H (3.8-10.6) k/uL MCV 100.2 H (80.0-100.0) fL Neutrophils # 10.8 H (1.3-7.7) k/uL Lymphocytes # 0.6 L (1.0-4.8) k/uL Sodium 132 L (137-145) mmol/L Glucose 128 H (74-99) mg/dL POC Glucose (mg/dL) 114 H (75-99) mg/dL Total Protein 6.1 L (6.3-8.2) g/dL Microbiology - Last 24 Hours (Table) 11/26/17 08:01 Blood Culture - Preliminary Blood No Growth after 48 hours Assessment and Plan Plan: Assessment: #1. Acute exacerbation of chronic obstructive pulmonary disease #2. Chest tightness, 3 sets of cardiac enzymes and troponins were negative, EKG without acute ischemic changes #3. Chronic and ongoing nicotine dependence, patient carries a 40+-pack-year smoking history #4. History of coronary artery disease #5. Anxiety Plan: Decrease IV steroids to 40 mg every 8 hours, we'll switch Symbicort to Pulmicort and Perforomist. Continue nebulized bronchodilators, will provide incentive spirometry. Increase activity as tolerated. From pulmonary standpoint patient can move out of the intensive care unit, to general medical floor. I performed a history & physical examination of the patient and discussed their management with my nurse practitioner, Narcisa Serna. I reviewed the nurse practitioner's note and agree with the documented findings and plan of care. Lung sounds are diminished. The findings and the impression was discussed with the patient. I attest to the documentation by the nurse practitioner. Time with Patient: Less than 30
[2017-11-29] MEDS: guaiFENesin-DM 100-10MG/5ML 10 ML CUP PO PRN ×2 (10:25→22:22)
[2017-11-29 12:01] LABS: Glucose,Whole Blood 114 mg/dL (75-99)
[2017-11-29] MEDS: SYMBICORT 160-4.5 MCG INHALER INHALATION SCH (13:48)
[2017-11-29] MEDS: IPRATROPIUM-ALBUTEROL 3 ML NEB INHALATION PRN ×2 (14:07→21:33)
[2017-11-29] MEDS ORDERED: NOREPINEPHRINE 4 MG in SODIUM CHLORIDE 0.9% 250 ML IV SCH (15:30)
[2017-11-29] MEDS: methylPREDNISolone SOD SUCCI 40 MG/ML 1 ML VIAL IV SCH (16:32)
[2017-11-29 17:20] LABS: Glucose,Whole Blood 133 mg/dL (75-99)
[2017-11-29] MEDS: NICOTINE 21MG/24HR PATCH TRANSDERM SCH (17:49)
[2017-11-29 20:55] LABS: Glucose,Whole Blood 149 mg/dL (75-99)
[2017-11-29] MEDS: FORMOTEROL FUMARATE 20 MCG/2 ML NEBU INHALATION SCH (21:33)
[2017-11-29] MEDS: BUDESONIDE 1 MG/2 ML NEBU INHALATION SCH (21:33)
[2017-11-29] MEDS: ZOLPIDEM 10 MG TAB PO PRN (22:23)
[2017-11-30] MEDS: methylPREDNISolone SOD SUCCI 40 MG/ML 1 ML VIAL IV SCH ×2 (00:40→11:39)
[2017-11-30 05:51] LABS: Basophils % (A) 0 %; Eosinophils % (A) 0 %; HCT 43.8 % (34.0-46.0); HGB 14.6 gm/dL (11.4-16.0); Lymphocytes # (A) 0.6 k/uL (1.0-4.8); Lymphocytes % (A) 8 %; MCH 33.1 pg (25.0-35.0); MCHC 33.3 g/dL (31.0-37.0); MCV 99.4 fL (80.0-100.0); Mean Platelet Volume 6.9; Monocytes # (A) 0.4 k/uL (0-1.0); Monocytes % (A) 5 %; Neutrophils # (A) 6.9 k/uL (1.3-7.7); Neutrophils % (A) 85 %; Platelet Count 331 k/uL (150-450); RBC 4.41 m/uL (3.80-5.40); RDW 12.3 % (11.5-15.5); WBC 8.1 k/uL (3.8-10.6)
[2017-11-30 06:23] LABS: Anion Gap 5 mmol/L; Blood Urea Nitrogen 12 mg/dL (7-17); Calcium 9.3 mg/dL (8.4-10.2); Carbon Dioxide 29 mmol/L (22-30); Chloride 97 mmol/L (98-107); Glucose 135 mg/dL (74-99); Potassium 4.5 mmol/L (3.5-5.1); Sodium 131 mmol/L (137-145)
--- NOTE | 2017-11-30 06:38 | P.PN ---
Subjective Progress Note Date: 11/30/17 Principal diagnosis: COPD exacerbation This is a pleasant 57-year-old female patient with a past medical history significant for CAD according to her based on heart catheterization was performed about 10 years ago showing coronary calcifications, known chronic obstructive pulmonary disease, as well as significant history of smoking and the patient continues to smoke, presented to the hospital complaining of shortness of breath and a chest discomfort. She was in her usual state of health until about this past Monday when she started experiencing symptoms of upper respiratory infection consistent of sore throat and some cough. The symptoms did not go away and over the next few days she started experiencing shortness of breath even with minimal exertion. The shortness of breath has progressed. It was associated with cough productive of white sputum. No fever and no chills. For the last few days before she presented to the hospital she is experiencing chest discomfort described as a chest pressure in the mid of the chest. No radiation to the arm or neck or shoulders andhis stated symptoms. The EKG showed sinus rhythm without any ischemic changes. 3 sets of cardiac enzymes came in to be unremarkable. On follow-up with the patient today, November 302017, she still not feeling well. She stated that she still short of breath. The breathing sounds has improved significantly. The cough seems to be better. The tachycardia has improved. She continues to be on Cardizem by mouth. The echocardiogram revealed normal LV function with mild MR, mild TR, and mild pulmonary hypertension. Objective - Vital Signs Vital signs: Vital Signs Temp 98.5 F 11/29/17 23:00 Pulse 76 11/29/17 21:58 Resp 17 11/29/17 23:00 BP 158/103 11/30/17 00:00 Pulse Ox 93 L 11/30/17 06:00 Intake & Output 11/29/17 11/29/17 11/30/17 06:59 18:59 06:59 Intake Total 1105 2600 Balance 1105 2600 Weight 67.4 kg 67.4 kg Intake: Oral 1105 2600 Other: Voiding Method Toilet Toilet Toilet # Voids 3 6 # Bowel Movements 1 - Constitutional General appearance: Present: no acute distress - Respiratory Respiratory: bilateral: CTA - Cardiovascular Rhythm: regular Heart sounds: normal: S1, S2 - Labs CBC & Chem 7: 11/30/17 05:30 11/30/17 05:30 Labs: Abnormal Lab Results - Last 24 Hours (Table) 11/29/17 11/29/17 11/29/17 Range/Units 07:17 11:49 17:09 Lymphocytes # (1.0-4.8) k/uL Sodium (137-145) mmol/L Chloride (98-107) mmol/L Glucose (74-99) mg/dL POC Glucose (mg/dL) 114 H 114 H 133 H (75-99) mg/dL 11/29/17 11/30/17 11/30/17 Range/Units 20:44 05:30 05:30 Lymphocytes # 0.6 L (1.0-4.8) k/uL Sodium 131 L (137-145) mmol/L Chloride 97 L (98-107) mmol/L Glucose 135 H (74-99) mg/dL POC Glucose (mg/dL) 149 H (75-99) mg/dL Microbiology - Last 24 Hours (Table) 11/26/17 08:01 Blood Culture - Preliminary Blood No Growth after 72 hours Assessment and Plan Assessment: Assessment #1 acute exacerbation of COPD #2 pneumonia #3 chest discomfort #4 significant history of smoking Plan #1 continue the current medical regimen. #2 continue Cardizem at the current dose #3 the echo revealed normal LV function without valvular abnormalities #4 severe underlying coronary artery disease to be ruled out probably as an outpatient with a stress test #5 discharge in the next 24 hours. Thank you for allowing us participate in her care and we'll continue following up with the patient
[2017-11-30] MEDS: guaiFENesin-DM 100-10MG/5ML 10 ML CUP PO PRN ×2 (07:40→23:19)
[2017-11-30] MEDS: INSULIN ASPART 100 UNIT/ML 1 ML 10 ML VIAL SQ SCH ×4 (07:41→22:27)
[2017-11-30 07:45] LABS: Glucose,Whole Blood 120 mg/dL (75-99)
[2017-11-30] MEDS: FORMOTEROL FUMARATE 20 MCG/2 ML NEBU INHALATION SCH ×2 (08:12→20:34)
[2017-11-30] MEDS: BUDESONIDE 1 MG/2 ML NEBU INHALATION SCH ×2 (08:12→20:34)
[2017-11-30] MEDS: IPRATROPIUM-ALBUTEROL 3 ML NEB INHALATION PRN ×3 (08:12→20:34)
--- NOTE | 2017-11-30 08:13 | P.PN ---
Subjective Principal diagnosis: Exacerbation of COPD The patient is here essentially for exacerbation of COPD. She is up ambulating to the bathroom without difficulty which is significant improvement. No significant fever or chills. No voiding difficulty stated. Objective - Vital Signs Vital signs: Vital Signs Temp 98.5 F 11/29/17 23:00 Pulse 76 11/29/17 21:58 Resp 17 11/29/17 23:00 BP 158/103 11/30/17 00:00 Pulse Ox 93 L 11/30/17 06:00 Intake & Output 11/29/17 11/30/17 11/30/17 18:59 06:59 18:59 Intake Total 2600 Output Total 0 Balance 2600 0 Weight 67.4 kg Intake: Oral 2600 Output: Urine 0 Other: Voiding Method Toilet Toilet # Voids 6 # Bowel Movements 1 - EENT Eyes: Absent: abnormal pupil - Respiratory Respiratory: bilateral: diminished - Cardiovascular Rhythm: regular Heart sounds: normal: S1, S2 Abnormal Heart Sounds: Absent: S3 Gallop - Gastrointestinal General gastrointestinal: Present: soft. Absent: tenderness - Neurologic Neurologic: Present: CNII-XII intact - Labs CBC & Chem 7: 11/30/17 05:30 11/30/17 05:30 Labs: Abnormal Lab Results - Last 24 Hours (Table) 11/29/17 11/29/17 11/29/17 Range/Units 11:49 17:09 20:44 Lymphocytes # (1.0-4.8) k/uL Sodium (137-145) mmol/L Chloride (98-107) mmol/L Glucose (74-99) mg/dL POC Glucose (mg/dL) 114 H 133 H 149 H (75-99) mg/dL 11/30/17 11/30/17 11/30/17 Range/Units 05:30 05:30 07:34 Lymphocytes # 0.6 L (1.0-4.8) k/uL Sodium 131 L (137-145) mmol/L Chloride 97 L (98-107) mmol/L Glucose 135 H (74-99) mg/dL POC Glucose (mg/dL) 120 H (75-99) mg/dL Microbiology - Last 24 Hours (Table) 11/26/17 08:01 Blood Culture - Preliminary Blood No Growth after 72 hours Assessment and Plan (1) COPD with acute exacerbation Current Visit: Yes Status: Acute Code(s): J44.1 - CHRONIC OBSTRUCTIVE PULMONARY DISEASE W (ACUTE) EXACERBATION SNOMED Code(s): 577922539 (2) Coronary atherosclerosis Current Visit: No Status: Acute Code(s): I25.10 - ATHSCL HEART DISEASE OF [place] CORONARY ARTERY W/O ANG PCTRS SNOMED Code(s): 480066089 (3) Smoking Current Visit: Yes Status: Acute Code(s): F17.200 - NICOTINE DEPENDENCE, UNSPECIFIED, UNCOMPLICATED SNOMED Code(s): 28210043 Plan: Continue current regimen or treatment. We'll most likely wean to oral steroids. Anticipate discharge in a.m.
--- NOTE | 2017-11-30 09:06 | P.PN ---
Subjective Progress Note Date: 11/30/17 Principal diagnosis: Acute COPD exacerbation. Progress note dated 11/28/2017 57-year-old female admitted with a diagnosis of an acute COPD exacerbation hypoxemic respiratory failure. The patient also had chest tightness likely related to her underlying COPD as opposed to cardiac disease. She has a history of chronic and ongoing nicotine dependence CAD and anxiety. Currently, she is on O2 at 2 L by nasal cannula and her IVs a saline IV at 75 mL an hour. This can be discontinued. The patient is doing much better today. Feeling much better. Still very short of breath with any activity. She does have chest tightness wheezing and coughing. She's not bringing up much or any phlegm. There is no fever or chills. The chest symptoms are primarily related to her underlying COPD and not cardiac disease at this time. Chest x-ray was consistent with changes of COPD. She was seen in consultation by our team yesterday. On 11/29/2017 patient seen in follow-up in intensive care unit. She states she still short of breath with any exertion, has a loose congested cough, at times is able to bring up some sputum. Room air pulse ox is 93-97%, she is afebrile, hemodynamically stable. Lung sounds reveal some crackles at the left lower base. No new chest x-rays. Patient doesn't does not feel that she is feeling improved since she came in. Labs have been reviewed, hemoglobin 11.8, hemoglobin is 14.7, sodium is 132, the rest of electrolytes and renal profile are within normal limits. Blood cultures have been negative after 48 hour venecia. On 11/30/2017 patient seen in follow-up in the intensive care unit. She is an overflow for general medical floor since yesterday. She reports breathing better today, still has persistent congestive cough, the patient was able to get up and ambulate, tolerated activity fairly well. Currently on 3 L per nasal cannula pulse ox is 96%. Patient is currently on IV Solu-Medrol, we will transition to oral prednisone. Blood culture showed no growth. Today's labs have been reviewed, CBC is unremarkable, sodium is 131, chloride is 97, renal profile is within normal limits, the rest of the electrolytes were within normal limits. Objective - Vital Signs Vital signs: Vital Signs Temp 98.5 F 11/29/17 23:00 Pulse 87 11/30/17 08:38 Resp 17 11/29/17 23:00 BP 158/103 11/30/17 00:00 Pulse Ox 93 L 11/30/17 06:00 Intake & Output 11/29/17 11/30/17 11/30/17 18:59 06:59 18:59 Intake Total 2600 Output Total 0 Balance 2600 0 Weight 67.4 kg Intake: Oral 2600 Output: Urine 0 Other: Voiding Method Toilet Toilet # Voids 6 # Bowel Movements 1 - Exam GENERAL EXAM: Alert, tearful, 57-year-old white female comfortable in no apparent distress. HEAD: Normocephalic/atraumatic. EYES: Normal reaction of pupils, equal size. Conjunctiva pink, sclera white. NOSE: Clear with pink turbinates. THROAT: No erythema or exudates. NECK: No masses, no JVD, no thyroid enlargement, no adenopathy. CHEST: No chest wall deformity. Symmetrical expansion. LUNGS: Equal air entry, patient has a loose congested cough CVS: Regular rate and rhythm, normal S1 and S2, no gallops, no murmurs, no rubs ABDOMEN: Soft, nontender. No hepatosplenomegaly, normal bowel sounds, no guarding or rigidity. EXTREMITIES: No clubbing, no edema, no cyanosis, 2+ pulses and upper and lower extremities. MUSCULOSKELETAL: Muscle strength and tone normal. SPINE: No scoliosis or deformity SKIN: No rashes CENTRAL NERVOUS SYSTEM: Alert and oriented -3. No focal deficits, tone is normal in all 4 extremities. PSYCHIATRIC: Alert and oriented -3. Appropriate affect. Intact judgment and insight. - Labs CBC & Chem 7: 11/30/17 05:30 11/30/17 05:30 Labs: Abnormal Lab Results - Last 24 Hours (Table) 11/29/17 11/29/17 11/29/17 Range/Units 11:49 17:09 20:44 Lymphocytes # (1.0-4.8) k/uL Sodium (137-145) mmol/L Chloride (98-107) mmol/L Glucose (74-99) mg/dL POC Glucose (mg/dL) 114 H 133 H 149 H (75-99) mg/dL 11/30/17 11/30/17 11/30/17 Range/Units 05:30 05:30 07:34 Lymphocytes # 0.6 L (1.0-4.8) k/uL Sodium 131 L (137-145) mmol/L Chloride 97 L (98-107) mmol/L Glucose 135 H (74-99) mg/dL POC Glucose (mg/dL) 120 H (75-99) mg/dL Microbiology - Last 24 Hours (Table) 11/26/17 08:01 Blood Culture - Preliminary Blood No Growth after 72 hours Assessment and Plan Plan: Assessment: #1. Acute exacerbation of chronic obstructive pulmonary disease #2. Chest tightness, 3 sets of cardiac enzymes and troponins were negative, EKG without acute ischemic changes #3. Chronic and ongoing nicotine dependence, patient carries a 40+-pack-year smoking history #4. History of coronary artery disease #5. Anxiety Plan: We will transition the IV steroids to oral prednisone, ontinue nebulized bronchodilators, will provide incentive spirometry. Increase activity as tolerated. Anticipate further improvement, and possible discharge home today. I performed a history & physical examination of the patient and discussed their management with my nurse practitioner, Narcisa Serna. I reviewed the nurse practitioner's note and agree with the documented findings and plan of care. Lung sounds are diminished. The findings and the impression was discussed with the patient. I attest to the documentation by the nurse practitioner. Time with Patient: Less than 30
[2017-11-30] MEDS: PANTOPRAZOLE 40 MG TABLET PO SCH (09:20)
[2017-11-30] MEDS: DILTIAZEM ORAL 30 MG TAB PO SCH ×3 (09:20→21:41)
[2017-11-30] MEDS: predniSONE 20 MG TAB PO SCH (09:20)
[2017-11-30] MEDS: CITALOPRAM HYDROBROMIDE 20 MG TAB PO SCH (09:20)
[2017-11-30] MEDS: HEPARIN SODIUM,PORCINE 5,000 UNIT/ML 1 ML VIAL SQ SCH ×2 (09:21→21:40)
[2017-11-30] MEDS: ALPRAZolam 0.25 MG TAB PO SCH ×3 (09:22→22:34)
[2017-11-30] MEDS: DOXYCYCLINE 100 MG CAP PO SCH ×2 (09:22→21:41)
[2017-11-30] MEDS: HYDROcodone/APAP 5-325MG 1 EACH TAB PO PRN ×3 (11:04→22:34)
[2017-11-30 11:18] LABS: Glucose,Whole Blood 114 mg/dL (75-99)
[2017-11-30] MEDS: BUTALB/APAP/CAFF 50-325-40MG TAB PO PRN (12:43)
[2017-11-30] MEDS: NICOTINE 21MG/24HR PATCH TRANSDERM SCH (16:42)
[2017-11-30 16:44] LABS: Glucose,Whole Blood 129 mg/dL (75-99)
[2017-11-30 21:14] LABS: Glucose,Whole Blood 109 mg/dL (75-99)
[2017-11-30] MEDS: ZOLPIDEM 10 MG TAB PO PRN (22:34)
[2017-12-01 06:03] VITALS: BP 129/74; TEMP 96.3
[2017-12-01] MEDS: BUDESONIDE 1 MG/2 ML NEBU INHALATION SCH ×2 (07:18→07:21)
[2017-12-01] MEDS: FORMOTEROL FUMARATE 20 MCG/2 ML NEBU INHALATION SCH ×2 (07:18→07:21)
[2017-12-01] MEDS: IPRATROPIUM-ALBUTEROL 3 ML NEB INHALATION PRN (07:18)
[2017-12-01 07:32] LABS: Glucose,Whole Blood 86 mg/dL (75-99)
[2017-12-01 07:35] VITALS: PULSE 80
--- NOTE | 2017-12-01 09:12 | P.PN ---
Subjective Progress Note Date: 12/01/17 Principal diagnosis: Acute COPD exacerbation. Progress note dated 11/28/2017 57-year-old female admitted with a diagnosis of an acute COPD exacerbation hypoxemic respiratory failure. The patient also had chest tightness likely related to her underlying COPD as opposed to cardiac disease. She has a history of chronic and ongoing nicotine dependence CAD and anxiety. Currently, she is on O2 at 2 L by nasal cannula and her IVs a saline IV at 75 mL an hour. This can be discontinued. The patient is doing much better today. Feeling much better. Still very short of breath with any activity. She does have chest tightness wheezing and coughing. She's not bringing up much or any phlegm. There is no fever or chills. The chest symptoms are primarily related to her underlying COPD and not cardiac disease at this time. Chest x-ray was consistent with changes of COPD. She was seen in consultation by our team yesterday. On 11/29/2017 patient seen in follow-up in intensive care unit. She states she still short of breath with any exertion, has a loose congested cough, at times is able to bring up some sputum. Room air pulse ox is 93-97%, she is afebrile, hemodynamically stable. Lung sounds reveal some crackles at the left lower base. No new chest x-rays. Patient doesn't does not feel that she is feeling improved since she came in. Labs have been reviewed, hemoglobin 11.8, hemoglobin is 14.7, sodium is 132, the rest of electrolytes and renal profile are within normal limits. Blood cultures have been negative after 48 hour venecia. On 11/30/2017 patient seen in follow-up in the intensive care unit. She is an overflow for general medical floor since yesterday. She reports breathing better today, still has persistent congestive cough, the patient was able to get up and ambulate, tolerated activity fairly well. Currently on 3 L per nasal cannula pulse ox is 96%. Patient is currently on IV Solu-Medrol, we will transition to oral prednisone. Blood culture showed no growth. Today's labs have been reviewed, CBC is unremarkable, sodium is 131, chloride is 97, renal profile is within normal limits, the rest of the electrolytes were within normal limits. On 12/01/2017 patient seen in follow-up on medical surgical floor. room air pulse ox is 92%, lung sounds are diminished, but no rhonchi or wheezes appreciated. Patient has been tolerating ambulation, occasional cough, without production of any phlegm. She states long breathing treatments are starting to cause some tightening in her chest, but overall she is improving. We'll switch the Pulmicort and Perforomist Dr. Truong, patient is on oral prednisone, empiric antibiotics, she remains afebrile. Hemodynamically stable. Requesting to go home today, from pulmonary perspective patient is stable for discharge home today. Objective - Vital Signs Vital signs: Vital Signs Temp 96.3 F L 12/01/17 06:02 Pulse 80 12/01/17 07:35 Resp 17 12/01/17 06:02 BP 129/74 12/01/17 06:02 Pulse Ox 92 L 12/01/17 07:22 Intake & Output 11/30/17 12/01/17 12/01/17 18:59 06:59 18:59 Intake Total 2400 240 Balance 2400 240 Intake: Oral 2400 240 Other: Voiding Method Toilet Toilet # Voids 1 2 - Exam GENERAL EXAM: Alert, tearful, 57-year-old white female comfortable in no apparent distress. HEAD: Normocephalic/atraumatic. EYES: Normal reaction of pupils, equal size. Conjunctiva pink, sclera white. NOSE: Clear with pink turbinates. THROAT: No erythema or exudates. NECK: No masses, no JVD, no thyroid enlargement, no adenopathy. CHEST: No chest wall deformity. Symmetrical expansion. LUNGS: Equal air entry, rhonchi, no wheezing noted CVS: Regular rate and rhythm, normal S1 and S2, no gallops, no murmurs, no rubs ABDOMEN: Soft, nontender. No hepatosplenomegaly, normal bowel sounds, no guarding or rigidity. EXTREMITIES: No clubbing, no edema, no cyanosis, 2+ pulses and upper and lower extremities. MUSCULOSKELETAL: Muscle strength and tone normal. SPINE: No scoliosis or deformity SKIN: No rashes CENTRAL NERVOUS SYSTEM: Alert and oriented -3. No focal deficits, tone is normal in all 4 extremities. PSYCHIATRIC: Alert and oriented -3. Appropriate affect. Intact judgment and insight. - Labs CBC & Chem 7: 11/30/17 05:30 11/30/17 05:30 Labs: Abnormal Lab Results - Last 24 Hours (Table) 11/30/17 11/30/17 11/30/17 Range/Units 11:14 16:21 21:01 POC Glucose (mg/dL) 114 H 129 H 109 H (75-99) mg/dL Microbiology - Last 24 Hours (Table) 11/26/17 08:01 Blood Culture - Preliminary Blood No Growth after 96 hours Assessment and Plan Plan: Assessment: #1. Acute exacerbation of chronic obstructive pulmonary disease #2. Chest tightness, 3 sets of cardiac enzymes and troponins were negative, EKG without acute ischemic changes #3. Chronic and ongoing nicotine dependence, patient carries a 40+-pack-year smoking history #4. History of coronary artery disease #5. Anxiety Plan: Patient is improving, vital signs are stable, no fever or chills, worsening shortness of breath. She is tolerating ambulation. From perspective patient is stable for discharge home today, on prednisone taper, her maintenance inhalers and nebulized treatments, oral course of antibiotics. Follow-up with Dr. Santos in the office in one week. Smoking cessation was strongly encouraged I performed a history & physical examination of the patient and discussed their management with my nurse practitioner, Narcisa Serna. I reviewed the nurse practitioner's note and agree with the documented findings and plan of care. Lung sounds are diminished. The findings and the impression was discussed with the patient. I attest to the documentation by the nurse practitioner. Time with Patient: Less than 30
[2017-12-01] MEDS: DILTIAZEM ORAL 30 MG TAB PO SCH (09:38)
[2017-12-01] MEDS: PANTOPRAZOLE 40 MG TABLET PO SCH (09:38)
[2017-12-01] MEDS: ALPRAZolam 0.25 MG TAB PO SCH (09:38)
[2017-12-01] MEDS: DOXYCYCLINE 100 MG CAP PO SCH (09:38)
[2017-12-01] MEDS: BENZONATATE 100 MG CAP PO PRN (09:38)
[2017-12-01] MEDS: CITALOPRAM HYDROBROMIDE 20 MG TAB PO SCH (09:38)
[2017-12-01] MEDS: predniSONE 20 MG TAB PO SCH (09:38)
[2017-12-01] MEDS: HEPARIN SODIUM,PORCINE 5,000 UNIT/ML 1 ML VIAL SQ SCH (09:39)
[2017-12-01] MEDS: INSULIN ASPART 100 UNIT/ML 1 ML 10 ML VIAL SQ SCH (09:39)
[2017-12-01] MEDS: HYDROcodone/APAP 5-325MG 1 EACH TAB PO PRN (09:39)
[2017-12-01 09:43] VITALS: RESP 16
[2017-12-01] MEDS: NICOTINE 21MG/24HR PATCH TRANSDERM SCH (10:10)
[2017-12-01] MEDS: guaiFENesin-DM 100-10MG/5ML 10 ML CUP PO PRN (10:10)
[2017-12-01] MEDS ORDERED: SYMBICORT 160-4.5 MCG INHALER INHALATION SCH (20:00)
== END 2017-12-01 10:43 | disposition home or self-care (01) | DRG 190 ==
LOC: EC 07:42 → 3SCARD 09:16 → 2SICU 14:00 → 4MS4W 11-30 09:56
PROVIDERS: ADMIT Family Medicine; ATTEND Family Medicine
DX: J44.1 Chronic obstructive pulmonary disease with (acute) exacerbation (principal); J18.9 Pneumonia, unspecified organism; J96.01 Acute respiratory failure with hypoxia; J98.11 Atelectasis; J44.0 Chronic obstructive pulmonary disease with (acute) lower respiratory infection; F17.210 Nicotine dependence, cigarettes, uncomplicated; F41.9 Anxiety disorder, unspecified; I10 Essential (primary) hypertension; I25.10 Atherosclerotic heart disease of native coronary artery without angina pectoris; I27.20 Pulmonary hypertension, unspecified; R00.0 Tachycardia, unspecified; R19.7 Diarrhea, unspecified; G43.909 Migraine, unspecified, not intractable, without status migrainosus; I08.1 Rheumatic disorders of both mitral and tricuspid valves; Z79.51 Long term (current) use of inhaled steroids; Z79.82 Long term (current) use of aspirin; Z79.899 Other long term (current) drug therapy; Z90.49 Acquired absence of other specified parts of digestive tract; Z98.51 Tubal ligation status; Z82.49 Family history of ischemic heart disease and other diseases of the circulatory system; Z80.9 Family history of malignant neoplasm, unspecified
CPT/HCPCS: 36415; 71046; 80048; 80053; 82550; 82553; 83036; 83735; 83880; 84484; 85025; 85610; 85730; 87040; 87502; 93005; 93306; 94640; 94760; 96374; 96375; 99291

== ENCOUNTER 2018-04-07 01:24 | Emergency (ER) | payer OTHER ==
[2018-04-07 01:35] VITALS: BP 140/90; PULSE 96; RESP 20; TEMP 97.9
[2018-04-07] MEDS ORDERED: DIPH,PERTUS(ACELL)TETVAC-LF 0.5 ML VIAL IM ONE (01:47)
[2018-04-07] MEDS ORDERED: LIDOCAINE 1% INJ 10MG/ML (20 ML MDV) SQ STA (01:47)
--- NOTE | 2018-04-07 02:06 | XR ---
EXAM: XR Left Hand Complete, 3 or More Views CLINICAL HISTORY: ITS.REASON XR Reason: Pain TECHNIQUE: Frontal, lateral and oblique views of the left hand. COMPARISON: No relevant prior studies available. FINDINGS: Bones/joints: No acute fracture. No dislocation. Soft tissues: Unremarkable. No radiopaque foreign body. IMPRESSION: No acute findings.
--- NOTE | 2018-04-07 02:31 | ED ---
General Adult HPI - General Chief complaint: Wound/Laceration Stated complaint: Hand Laceration-[facility] Time Seen by Provider: 04/07/18 01:32 Source: patient, RN notes reviewed, old records reviewed Mode of arrival: ambulatory Limitations: no limitations - History of Present Illness Initial comments: 50-year-old female patient past medical history of COPD presents to ED with a laceration on the proximal phalanx of her left first digit. 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 Patient does not know date of last tetanus. Patient has full active range of motion of hand. Patient denies all other complaints. Systemic: Pt denies fatigue, myalgia, fever/chills, rash. Pt denies weakness, night sweats, weight loss. Neuro: Pt denies headache, visual disturbances, syncope or pre-syncope. HEENT: Pt denies ocular discharge or irritation, otalgia, rhinorrhea, pharyngitis or notable lymphadenopathy. Cardiopulmonary: Pt denies chest pain, SOB, heart palpitations, dyspnea on exertion. Abdominal/GI: Pt denies abdominal pain, n/v/d. : Pt denies dysuria, burning w/ urination, frequency/urgency. Denies new onset urinary or bowel incontinence. MSK: Pt denies myalgia, loss of strength or function in extremities. Neuro: Pt denies new onset weakness, paresthesias. - Related Data Home Medications Medication Instructions Recorded Confirmed Budesonide-Formot 160-4.5 Mcg 2 puff INHALATION RT-BID 09/07/13 04/07/18 [Symbicort 160-4.5 Mcg Inhaler] Albuterol Inhaler [Ventolin Hfa 2 puff INHALATION RT-Q6H PRN 10/23/15 04/07/18 Inhaler] Karli Smoot Cold/Cough 1 applic PO DAILY PRN 11/25/16 04/07/18 LORazepam [Ativan] 0.5 mg PO TID PRN 11/26/17 04/07/18 Previous Rx's Medication Instructions Recorded Benzonatate [Tessalon Perles] 100 mg PO TID PRN #21 cap 12/01/17 Budesonide-Formot 160-4.5 Mcg 2 puff INHALATION RT-BID #1 unit 12/01/17 [Symbicort 160-4.5 Mcg Inhaler] Citalopram Hydrobromide [CeleXA] 20 mg PO DAILY #30 tab 12/01/17 Diltiazem Oral [Cardizem*] 30 mg PO TID #90 tab 12/01/17 Doxycycline [Vibramycin] 100 mg PO BID #10 cap 12/01/17 Ipratropium-Albuterol Nebulize 3 ml INHALATION RT-Q4H PRN #120 12/01/17 [Duoneb 0.5 mg-3 mg/3 ml Soln] ampul.neb Nicotine 21Mg/24Hr Patch [Habitrol] 1 patch TRANSDERM Q24H #30 patch 12/01/17 Pantoprazole [Protonix] 40 mg PO AC-BRKFST #30 tablet. 12/01/17 predniSONE 0 mg PO DIRECTED #18 tab 12/01/17 Allergies Allergy/AdvReac Type Severity Reaction Status Date / Time No Known Allergies Allergy Verified 11/26/17 12:30 Review of Systems ROS Statement: Those systems with pertinent positive or pertinent negative responses have been documented in the HPI. ROS Other: All systems not noted in ROS Statement are negative. Past Medical History Past Medical History: Chest Pain / Angina, COPD Additional Past Medical History / Comment(s): HX migraines,states chronic bronchitis History of Any Multi-Drug Resistant Organisms: None Reported Past Surgical History: Appendectomy, Tubal Ligation Past Anesthesia/Blood Transfusion Reactions: No Reported Reaction Past Psychological History: Anxiety Smoking Status: Current every day smoker - Past Family History Brother(s) Family Medical History: Coronary Artery Disease (CAD), Myocardial Infarction ([place] ) Additional Family Medical History / Comment(s): pacemaker Sister(s) Family Medical History: Mitral Valve Prolapse (MVP) Father Additional Family Medical History / Comment(s): "post op mrsa infection- from complications of that" Mother Family Medical History: Cancer General Exam - General Exam Comments Initial Comments: Constitutional: NAD, AOX3, Pt has pleasant affect. HEENT: NC/AT, trachea midline, neck supple, no lymphadenopathy. Posterior pharynx non erythematous, without exudates. External ears appear normal, without discharge. Mucous membranes moist. Eyes PERRLA, EOM intact. There is no scleral icterus. No pallor noted. Cardiopulmonary: RRR, no murmurs, rubs or gallops, no JVD noted. Lungs CTAB in anterior and posterior gaviria. No peripheral edema. Abdominal exam: Abdomen soft and non-distended. Abdomen non-tender to palpation in all 4 quadrants. Bowel sounds active in LLQ. No hepatosplenomegaly. No ecchymosis Neuro: CN II-XII grossly intact. No nuchal rigidity. MSK: Approximately 2 cm laceration crescent-shaped on proximal phalanx of left first digit. No bony or ligamentous involvement. No foreign body noted. There is irrigated with 1 L of normal saline. Full active range of motion of thumb. Flexion and extension and abduction and abduction intact. Wound closed with 3 simple interrupted sutures. No posterior calf tenderness bilaterally, homans sign negative bilaterally. Posterior tibialis and radial pulse +2 bilaterally. Sensation intact in upper and lower extremities. Full active ROM in upper and lower extremities, 5/5 stregnth. Limitations: no limitations Course Vital Signs 04/07/18 01:31 Temperature 97.9 F Pulse Rate 96 Respiratory 20 Rate Blood Pressure 140/90 O2 Sat by Pulse 96 Oximetry Procedures - Laceration Laceration #1 Consent Obtained: verbal consent Indication: laceration Site: hand (1st digit proximal phalanx) Size (cm): 2 Description: stellate Depth: simple, single layer Anesthetic Used: lidocaine 1% Anesthesia Technique: local infiltration Amount (mls): 4 Pre-repair: wound explored, irrigated extensively (1L NS ), deep structures intact Size of Sutures: 5-0 Number of Sutures: 3 Technique: simple, interrupted Patient Tolerated Procedure: well, no complications Medical Decision Making - Medical Decision Making 50-year-old female patient past medical history of COPD presents to ED with a laceration on the proximal phalanx of her left first digit. 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 Patient does not know date of last tetanus. Patient has full active range of motion of hand. Patient denies all other complaints. Pt VSS, afebrile. Physical exam displayed: Approximately 2 cm laceration crescent-shaped on proximal phalanx of left first digit. No bony or ligamentous involvement. No foreign body noted. There is irrigated with 1 L of normal saline. Full active range of motion of thumb. Flexion and extension and abduction and abduction intact. Wound closed with 3 simple interrupted sutures. Patient tetanus updated. Plain film of left hand did not display any acute process. Patient follow up with PCP in 1-2 days. Patient educated on signs symptoms of infection , verbalized understanding. Patient to return to ED in 7-10 days for suture removal. Case discussed with Dr. Aldridge Disposition Clinical Impression: Laceration Disposition: HOME SELF-CARE Condition: Stable Instructions (If sedation given, give patient instructions): Laceration (ED) Additional Instructions: Patient to adhere to previously discussed treatment plan and will take medication(s) as directed. Patient to follow up with PCP in 1-2 days. Patient to return to ED if symptoms do not improve. Please return for suture removal: Hand: 7-10 days Face: 5 days Chest/abdomen: 12-14 days Extremities: 7-10 days Scalp: 7 days Eyebrow: 5-7 days Foot/sole: 12-14 days Please monitor for signs and symptoms of infection including: redness, warmth, drainage, discharge. Please return to ED if these signs or symptoms occur, new signs or symptoms develop or if condition worsens in anyway. Is patient prescribed a controlled substance at d/c from ED?: No Referrals: None,Stated [Primary Care Provider] - 1-2 days Time of Disposition: 02:31
== END 2018-04-07 02:52 | disposition home or self-care (01) ==
LOC: EC 01:24
DX: S61.012A Laceration without foreign body of left thumb without damage to nail, initial encounter (principal); J44.9 Chronic obstructive pulmonary disease, unspecified; F17.200 Nicotine dependence, unspecified, uncomplicated; Z79.51 Long term (current) use of inhaled steroids; Z23 Encounter for immunization; W45.8XXA Other foreign body or object entering through skin, initial encounter; Y93.E9 Activity, other interior property and clothing maintenance; Y92.69 Other specified industrial and construction area as the place of occurrence of the external cause; Y99.0 Civilian activity done for income or pay
CPT/HCPCS: 73130; 90715; 99283; 12001; 90471; J2001

== ENCOUNTER 2018-06-04 13:21 | Observation (INO) | payer OTHER ==
--- NOTE | 2018-06-04 13:50 | ED ---
Chest Pain HPI - General Chief Complaint: Chest Pain Stated Complaint: Chest Pain, Weakness on L Side Time Seen by Provider: 06/04/18 13:48 Source: patient, RN notes reviewed, old records reviewed Mode of arrival: ambulatory Limitations: no limitations - History of Present Illness Initial Comments: This is a 58-year-old female the ER for evaluation. Patient resents today for evaluation regards to patient having squeezing chest pain, shortness of breath. Patient states the chest pain is using her chest she was that is causing the shortness of breath. Patient does have recent stress test which she believes was normal. No recent travel history no sick contacts. No fevers that she knows. No cough or congestion currently. No diaphoresis noted. MD Complaint: chest pain -: days(s) Onset: during rest, during exertion Pain Location: left chest Pain Radiation: back Severity: mild Severity scale (1-10): 2 Quality: aching, heaviness, other (Breathing) Consistency: constant Improves With: nothing Worsens With: nothing Anginal Symptoms: diaphoresis, dyspnea Other Symptoms: palpitations Treatments Prior to Arrival: none - Related Data Home Medications Medication Instructions Recorded Confirmed Diltiazem HCl [Cartia Xt] 180 mg PO HS 06/04/18 06/04/18 LORazepam [Ativan] 1 mg PO TID PRN 06/04/18 06/04/18 Varenicline Tartrate [Chantix 1 mg PO DAILY 06/04/18 06/04/18 Continuing Pack] Previous Rx's Medication Instructions Recorded Budesonide-Formot 160-4.5 Mcg 2 puff INHALATION RT-BID #1 unit 12/01/17 [Symbicort 160-4.5 Mcg Inhaler] Citalopram Hydrobromide [CeleXA] 20 mg PO DAILY #30 tab 12/01/17 Allergies Allergy/AdvReac Type Severity Reaction Status Date / Time No Known Allergies Allergy Verified 06/04/18 14:05 Review of Systems ROS Statement: Those systems with pertinent positive or pertinent negative responses have been documented in the HPI. ROS Other: All systems not noted in ROS Statement are negative. EKG Findings - EKG Comments: EKG Findings:: EKG shows sinus rhythm rate of 85, NC 1:30, QRS 84, QTc 437 Past Medical History Past Medical History: Chest Pain / Angina, COPD Additional Past Medical History / Comment(s): HX migraines,states chronic bronchitis History of Any Multi-Drug Resistant Organisms: None Reported Past Surgical History: Appendectomy, Tubal Ligation Past Anesthesia/Blood Transfusion Reactions: No Reported Reaction Past Psychological History: Anxiety Smoking Status: Current every day smoker Past Alcohol Use History: None Reported Past Drug Use History: None Reported - Past Family History Brother(s) Family Medical History: Coronary Artery Disease (CAD), Myocardial Infarction ([place]) Additional Family Medical History / Comment(s): pacemaker Sister(s) Family Medical History: Mitral Valve Prolapse (MVP) Father Additional Family Medical History / Comment(s): "post op mrsa infection- from complications of that" Mother Family Medical History: Cancer General Exam Limitations: no limitations Course Vital Signs 06/04/18 06/04/18 06/04/18 13:26 13:50 14:00 Temperature 98.1 F Pulse Rate 93 85 Respiratory 18 18 Rate Blood Pressure 139/83 133/84 133/84 O2 Sat by Pulse 97 96 96 Oximetry 06/04/18 06/04/18 06/04/18 14:30 15:00 15:01 Temperature Pulse Rate 80 Respiratory 18 20 Rate Blood Pressure 120/80 135/82 O2 Sat by Pulse 96 Oximetry 06/04/18 06/04/18 15:30 16:00 Temperature Pulse Rate 82 76 Respiratory 18 19 Rate Blood Pressure 135/82 135/85 O2 Sat by Pulse 95 96 Oximetry Disposition Clinical Impression: Atypical chest pain, Unstable angina pectoris, Chest pain Disposition: ADMITTED IP TO THIS [facility] Condition: Undetermined Is patient prescribed a controlled substance at d/c from ED?: No
[2018-06-04] MEDS ORDERED: MORPHINE SULFATE 4 MG/ML SYRINGE IVP STA (14:11)
[2018-06-04 14:15] LABS: Basophils # (A) 0.1 k/uL (0-0.2); Basophils % (A) 1 %; Eosinophils # (A) 0.1 k/uL (0-0.7); Eosinophils % (A) 2 %; HCT 47.6 % (34.0-46.0); HGB 15.7 gm/dL (11.4-16.0); Lymphocytes # (A) 1.9 k/uL (1.0-4.8); Lymphocytes % (A) 29 %; MCH 32.4 pg (25.0-35.0); MCV 98.2 fL (80.0-100.0); Mean Platelet Volume 7.3; Monocytes # (A) 0.4 k/uL (0-1.0); Monocytes % (A) 7 %; Neutrophils # (A) 3.8 k/uL (1.3-7.7); Neutrophils % (A) 59 %; Platelet Count 361 k/uL (150-450); RBC 4.85 m/uL (3.80-5.40); RDW 13.8 % (11.5-15.5); WBC 6.4 k/uL (3.8-10.6)
[2018-06-04 14:29] LABS: INR 0.9 (<1.2); Partial Thromboplastin Time 22.1 sec (22.0-30.0); Prothrombin Time 9.6 sec (9.0-12.0)
[2018-06-04 14:31] LABS: ALT 24 U/L (9-52); AST 21 U/L (14-36); Albumin 4.4 g/dL (3.5-5.0); Alkaline Phosphatase 85 U/L (38-126); Anion Gap 7 mmol/L; Blood Urea Nitrogen 14 mg/dL (7-17); Calcium 10.1 mg/dL (8.4-10.2); Carbon Dioxide 28 mmol/L (22-30); Chloride 100 mmol/L (98-107); Glucose 93 mg/dL (74-99); Lipase 129 U/L (23-300); Magnesium 2.2 mg/dL (1.6-2.3); Potassium 4.2 mmol/L (3.5-5.1); Sodium 135 mmol/L (137-145); Total Bilirubin 0.4 mg/dL (0.2-1.3); Total Protein 6.7 g/dL (6.3-8.2)
--- NOTE | 2018-06-04 15:08 | XR ---
EXAMINATION TYPE: XR chest 2V DATE OF EXAM: 06/04/2018 COMPARISON: Prior chest x-ray 11/26/2017 HISTORY: Chest pain TECHNIQUE: Frontal and lateral views of the chest are obtained. FINDINGS: Hyperinflation suggests underlying COPD. Strand-like areas of increased attenuation again n oted likely reflecting atelectasis or scar. There are overlying cardiac leads. Aorta is dense. There is no focal air space opacity, pleural effusion, or pneumothorax seen. The cardiac silhouette size i s within normal limits. The osseous structures are intact. IMPRESSION: No acute cardiopulmonary process.
[2018-06-04] MEDS ORDERED: HEPARIN SODIUM,PORCINE 5,000 UNIT/ML 1 ML VIAL IV PRN (15:26)
[2018-06-04] MEDS ORDERED: HEPARIN SODIUM,PORCINE 5,000 UNIT/ML 1 ML VIAL IV ONE (15:26)
[2018-06-04] MEDS ORDERED: ASPIRIN 81 MG PO STA (15:26)
[2018-06-04] MEDS ORDERED: HEPARIN SOD,PORK IN 0.45% NACL 25,000 UNIT in 0.45% NACL 1 250ML.BAG IV SCH (15:30)
[2018-06-04] MEDS ORDERED: SODIUM CHLORIDE 0.9% 1,000 ML IV SCH (15:30)
[2018-06-04] MEDS: MORPHINE SULFATE 4 MG/ML SYRINGE IVP PRN ×2 (17:25→21:58)
[2018-06-04 21:50] VITALS: BMI 19.0
[2018-06-04] MEDS: METOPROLOL TARTRATE 25 MG TAB PO SCH (21:57)
[2018-06-04] MEDS ORDERED: LORazepam 1 MG TAB PO PRN (22:05)
[2018-06-04] MEDS ORDERED: DILTIAZEM CD 180 MG CAP.ER.24H PO SCH (22:15)
[2018-06-04] MEDS: SYMBICORT 160-4.5 MCG INHALER INHALATION SCH (22:43)
[2018-06-05] MEDS: MORPHINE SULFATE 4 MG/ML SYRINGE IVP PRN ×2 (04:46→09:13)
[2018-06-05 06:20] LABS: Mean Platelet Volume 6.8; Platelet Count 316 k/uL (150-450)
[2018-06-05 06:32] LABS: Cholesterol 168 mg/dL (<200); HDL Cholesterol 89 mg/dL (40-60); LDL Cholesterol,Calculated 64 mg/dL (0-99); Triglycerides 75 mg/dL (<150)
[2018-06-05] MEDS: SYMBICORT 160-4.5 MCG INHALER INHALATION SCH (07:33)
[2018-06-05 07:54] VITALS: RESP 18
[2018-06-05] MEDS ORDERED: SYMBICORT 160-4.5 MCG INHALER INHALATION SCH (08:00)
[2018-06-05] MEDS ORDERED: ASPIRIN 325 MG TAB PO SCH (09:00)
[2018-06-05] MEDS ORDERED: ATORVASTATIN 80 MG TAB PO SCH (09:00)
[2018-06-05] MEDS: METOPROLOL TARTRATE 25 MG TAB PO SCH (09:13)
--- NOTE | 2018-06-05 10:37 | US ---
EXAMINATION TYPE: US gallbladder DATE OF EXAM: 06/05/2018 COMPARISON: US CLINICAL HISTORY: nausea. Epigastric and chest pain, vomiting EXAM MEASUREMENTS: Liver Length: 17.0 cm Gallbladder Wall: 0.1 cm CBD: 0.3 cm Right Kidney: 11.5 x 5.1 x 3.9 cm Pancreas: wnl in its visualized portions Liver: wnl Gallbladder: wnl Evidence for sonographic Kay's sign: no CBD: wnl Right Kidney: wnl No ascites evident. IMPRESSION: No significant abnormality to account for patient's symptoms
--- NOTE | 2018-06-05 10:58 | P.CRDCN ---
History of Present Illness History of present illness: This is a pleasant 50-year-old female past medical history significant for COPD and chronic nicotine dependence. She also has sinus tachycardia and takes diltiazem for rate control. She follows in the office with Dr. Johns. We've been asked to see her in consultation for symptoms of chest discomfort. She states yesterday while lying down to take a nap she started feeling a heavy squeezing sensation in the midsternal region. There was radiation to the left arm and some associated nausea, dizziness and she vomited yesterday one time. She attempted to take different and antacids at home but was cheating no relief of her chest discomfort she came to the hospital for further evaluation. Upon arrival she was continuing to have chest discomfort. EKG at that time reveals sinus mechanism with no acute ST or T wave abnormalities noted. She was given IV morphine 4 mg at that time and her pain did resolve. She has had intermittent episodes of tight squeezing sensation in her chest through the night. Morphine has been given and resolves the pain each time. She recently was seen in the office and underwent a Lexiscan stress test in January 2018 was negative for reversible cardiac ischemia. Chest x-ray obtained on admission is negative for an acute cardiopulmonary process. Laboratory data reviewed, WBC 6.4, hemoglobin 15.7, platelets 316, sodium 135, potassium 4.2, creatinine 0.6, magnesium 2.2, cardiac enzymes negative 3, LDL 64, HDL 89. Recent echocardi ogram obtained November 2017 reveals preserved left ventricular systolic function with ejection fraction 55-60%, mild MR, mild TR and mild pulmonary hypertension with an RVSP of 39 mmHg. At the time of my exam: CONSTITUTIONAL: Denies fever. Denies chills. EYES: Denies blurred vision. Denies vision changes. Denies eye pain. EARS, NOSE, MOUTH & THROAT: Denies headache. Denies sore throat. Denies ear pain. CARDIOVASCULAR: Complains of intermittent chest pain. Denies shortness of breath. Denies orthopnea. Denies PND. Denies palpitations. RESPIRATORY: Denies cough. GASTROINTESTINAL: Denies abdominal pain. Denies diarrhea. Denies constipation. Complains of nausea. Denies vomiting. MUSCULOSKELETAL: Denies myalgias. INTEGUMENTARY: Denies pruitis. Denies rash. NEUROLOGIC: Denies numbness. Denies tingling. Denies weakness. PSYCHIATRIC: Denies anxiety. Denies depression. ENDOCRINE: Denies fatigue. Denies weight change. Denies polydipsia. Denies polyurina. GENITOURINARY: Denies burning, hematuria or urgency with micturation. HEMATOLOGIC: Denies history of anemia. Denies bleeding. Blood pressure 108/70 heart rate 63 afebrile maintaining oxygen saturation on room air GENERAL: This is a 58-year-old female in no apparent distress at the time of my examination. HEENT: Head is atraumatic, normocephalic. Pupils are equal, round. Sclerae anicteric. Conjunctivae are clear. Mucous membranes of the mouth are moist. Neck is supple. There is no jugular venous distention. No carotid bruit is heard. LUNGS: Clear to auscultation no wheezes, rales or rhonchi. No chest wall tenderness is noted on palpation or with deep breathing. Diminished bilaterally. HEART: Regular rate and rhythm without murmurs, rubs or gallops. S1 and S2 heard. ABDOMEN: Soft, nontender. Bowel sounds are heard. No organomegaly noted. EXTREMITIES: No evidence of peripheral edema and no calf tenderness noted. VASCULAR: Radial and dorsalis pedis pulses palpated, no evidence of clubbing. NEUROLOGIC: Patient is awake, alert and oriented x3. ASSESSMENT Chest pain, atypical for angina however persistent. An acute coronary event has been ruled out. COPD Chronic nicotine dependence PLAN An acute coronary event has been ruled out. Obtain ultrasound of her gallbladder. Increase activity in the halls and continue to assess for exertional chest discomfort to suggest angina. Observe over night and will consider possibly coronary angiography in the morning if she continues to have symptoms and gallbladder is normal. Thank you kindly for this consultation. Nurse Practitioner note has been reviewed, I agree with a documented findings and plan of care. Patient was seen and examined. Past Medical History Past Medical History: Chest Pain / Angina, COPD Additional Past Medical History / Comment(s): HX migraines,states chronic bronchitis History of Any Multi-Drug Resistant Organisms: None Reported Past Surgical History: Appendectomy, Tubal Ligation Past Anesthesia/Blood Transfusion Reactions: No Reported Reaction Past Psychological History: Anxiety Smoking Status: Current some day smoker Past Alcohol Use History: None Reported Additional Past Alcohol Use History / Comment(s): started smoking 1984 was smoking 3 ppd now down to 1-2 ppd Past Drug Use History: None Reported - Past Family History Brother(s) Family Medical History: Coronary Artery Disease (CAD), Myocardial Infarction ([place]) Additional Family Medical History / Comment(s): pacemaker Sister(s) Family Medical History: Mitral Valve Prolapse (MVP) Father Additional Family Medical History / Comment(s): "post op mrsa infection- from complications of that" Mother Family Medical History: Cancer Medications and Allergies Home Medications Medication Instructions Recorded Confirmed Type Budesonide-Formot 160-4.5 Mcg 2 puff INHALATION RT-BID #1 unit 12/01/17 06/04/18 Rx [Symbicort 160-4.5 Mcg Inhaler] Citalopram Hydrobromide [CeleXA] 20 mg PO DAILY #30 tab 12/01/17 06/04/18 Rx Aspirin [Adult Low Dose Aspirin EC] 81 mg PO DAILY 06/04/18 06/04/18 History Diltiazem HCl [Cartia Xt] 180 mg PO HS 06/04/18 06/04/18 History LORazepam [Ativan] 1 mg PO TID PRN 06/04/18 06/04/18 History Varenicline Tartrate [Chantix 1 mg PO HS 06/04/18 06/04/18 History Continuing Pack] Allergies Allergy/AdvReac Type Severity Reaction Status Date / Time No Known Allergies Allergy Verified 06/04/18 21:42 Physical Exam Vitals: Vital Signs Temp Pulse Pulse Resp BP BP Pulse Ox 06/05/18 07:35 97.8 F 63 18 108/70 95 06/05/18 04:00 98.4 F 61 16 111/69 94 L 06/05/18 03:37 18 06/05/18 00:00 97.6 F 74 18 107/69 94 L 06/04/18 21:34 97.9 F 71 16 133/76 93 L 06/04/18 21:00 85 20 122/84 06/04/18 20:00 18 06/04/18 16:00 76 19 135/85 96 06/04/18 15:30 82 18 135/82 95 06/04/18 15:01 20 06/04/18 15:00 135/82 06/04/18 14:30 80 18 120/80 96 06/04/18 14:00 85 18 133/84 96 06/04/18 13:50 133/84 96 06/04/18 13:26 98.1 F 93 18 139/83 97 Intake and Output 06/04/18 06/05/18 06/05/18 22:59 06:59 14:59 Intake Total 48.989 Balance 48.989 Intake: Intake, IV Titration 48.989 Amount Heparin Sod,Pork in 0.45% 48.989 NaCl 25,000 unit In 0.45 % NaCl 1 250ml.bag @ 12 UNITS/KG/HR 6.804 mls/hr IV .Q24H [facility] Rx#: [id number] Other: # Voids 1 1 Results 06/05/18 05:42 06/04/18 13:57 Cardiac Enzymes 06/04/18 06/04/18 06/04/18 Range/Units 13:57 13:57 21:39 AST 21 (14-36) U/L Troponin I <0.012 <0.012 (0.000-0.034) ng/mL 06/05/18 Range/Units 01:59 AST (14-36) U/L Troponin I <0.012 (0.000-0.034) ng/mL Coagulation 06/04/18 06/04/18 06/05/18 Range/Units 13:57 21:39 05:42 PT 9.6 (9.0-12.0) sec APTT 22.1 36.7 H 43.5 H (22.0-30.0) sec Lipids 06/05/18 Range/Units 05:42 Triglycerides 75 (<150) mg/dL Cholesterol 168 (<200) mg/dL HDL Cholesterol 89 H (40-60) mg/dL CBC 06/04/18 06/05/18 Range/Units 13:57 05:42 WBC 6.4 (3.8-10.6) k/uL RBC 4.85 (3.80-5.40) m/uL Hgb 15.7 (11.4-16.0) gm/dL Hct 47.6 H (34.0-46.0) % Plt Count 361 316 (150-450) k/uL Comprehensive Metabolic Panel 06/04/18 Range/Units 13:57 Sodium 135 L (137-145) mmol/L Potassium 4.2 (3.5-5.1) mmol/L Chloride 100 (98-107) mmol/L Carbon Dioxide 28 (22-30) mmol/L BUN 14 (7-17) mg/dL Creatinine 0.60 (0.52-1.04) mg/dL Glucose 93 (74-99) mg/dL Calcium 10.1 (8.4-10.2) mg/dL AST 21 (14-36) U/L ALT 24 (9-52) U/L Alkaline Phosphatase 85 (38-126) U/L Total Protein 6.7 (6.3-8.2) g/dL Albumin 4.4 (3.5-5.0) g/dL Current Medications Generic Name Dose Route Start Last Admin Trade Name Freq PRN Reason Stop Dose Admin Aspirin 325 mg 06/05/18 09:00 Aspirin PO DAILY [facility] Budesonide/Formoterol Fumarate 2 puff 06/04/18 22:25 06/05/18 07:33 Symbicort 160-4.5 Mcg Inhaler INHALATION 2 puff RT-BID [facility] Administration Diltiazem HCl 180 mg 06/04/18 22:15 06/04/18 22:21 Cardizem Cd PO 180 mg HS [facility] Administration Heparin Sodium (Porcine) 0 unit 06/04/18 15:26 Heparin IV Q6HR PRN Low PTT Protocol Sodium Chloride 1,000 mls @ 20 mls/hr 06/04/18 15:30 06/04/18 16:09 Saline 0.9% IV 20 mls/hr .Q24H [facility] Administration Lorazepam 1 mg 06/04/18 22:05 Ativan PO TID PRN Anxiety Metoprolol Tartrate 25 mg 06/04/18 21:00 06/04/18 21:57 Lopressor PO 25 mg BID [facility] Administration Morphine Sulfate 4 mg 06/04/18 14:11 06/05/18 04:46 Morphine Sulfate (Inj) IVP 4 mg Q4HR PRN Administration Pain Intake and Output 06/04/18 06/05/18 06/05/18 22:59 06:59 14:59 Intake Total 48.989 Balance 48.989 Intake: Intake, IV Titration 48.989 Amount Heparin Sod,Pork in 0.45% 48.989 NaCl 25,000 unit In 0.45 % NaCl 1 250ml.bag @ 12 UNITS/KG/HR 6.804 mls/hr IV .Q24H [facility] Rx#: [id number] Other: # Voids 1 1 06/05/18 05:42 06/04/18 13:57
[2018-06-05 11:38] VITALS: BP 110/71; PULSE 60; TEMP 97.9
[2018-06-05] MEDS ORDERED: PANTOPRAZOLE 40 MG/10 ML VIAL IVP SCH (13:00)
--- NOTE | 2018-06-05 14:42 | P.DS ---
Providers Date of admission: 06/04/18 15:26 Attending physician: Javier Desir Consults: 06/04/18 15:26 Consult Physician Urgent Consulting Provider: Mara Lewis Consult Reason/Comments: cp Do you want consulting provider notified?: Yes Primary care physician: Javier Desir Hospital Course: Please refer to my HPI Patient Condition at Discharge: Undetermined Plan - Discharge Summary New Discharge Prescriptions: New Omeprazole [PriLOSEC] 20 mg PO AC-BRKFST #30 capsule. No Action Budesonide-Formot 160-4.5 Mcg [Symbicort 160-4.5 Mcg Inhaler] 2 puff INHALATION RT-BID #1 unit Citalopram Hydrobromide [CeleXA] 20 mg PO DAILY #30 tab LORazepam [Ativan] 1 mg PO TID PRN PRN Reason: Anxiety Diltiazem HCl [Cartia Xt] 180 mg PO HS Varenicline Tartrate [Chantix Continuing Pack] 1 mg PO HS Aspirin [Adult Low Dose Aspirin EC] 81 mg PO DAILY Discharge Medication List Budesonide-Formot 160-4.5 Mcg [Symbicort 160-4.5 Mcg Inhaler] 2 puff INHALATION RT-BID #1 unit 12/01/17 [Rx] Citalopram Hydrobromide [CeleXA] 20 mg PO DAILY #30 tab 12/01/17 [Rx] Aspirin [Adult Low Dose Aspirin EC] 81 mg PO DAILY 06/04/18 [History] Diltiazem HCl [Cartia Xt] 180 mg PO HS 06/04/18 [History] LORazepam [Ativan] 1 mg PO TID PRN 06/04/18 [History] Varenicline Tartrate [Chantix Continuing Pack] 1 mg PO HS 06/04/18 [History] Omeprazole [PriLOSEC] 20 mg PO AC-BRKFST #30 capsule. 06/05/18 [Rx] Follow up Appointment(s)/Referral(s): Jose Luis Lipscomb MD [STAFF PHYSICIAN] - 1 Week (Call office and follow up with Dr. GUILLERMO Lipscomb in the office) Javier Desir MD [Primary Care Provider] - 3 Days Patient Instructions/Handouts: Chest Pain (DC) Discharge Disposition: HOME SELF-CARE
--- NOTE | 2018-06-05 14:42 | P.HPIM ---
History of Present Illness 50-year-old presents female came in with complaints of abdominal discomfort and epigastric abdominal area and retrosternal chest pain which is burning in nature associated nausea and dizziness had an episode of vomiting. Patient pain improved but still has mild pain compared to moderately severe burning sensation as today. Patient was a valid by cardiology patient had a recent stress test in January 2018 that is negative for reversible ischemia chest x-ray did not show any acute cardio pulmonary process EKG did not reveal any acute ST-T wave changes. Cardiology recommended ablating the patient and ablating the patient did not worsen her pain, patient is being discharged on Prilosec for 14 days. He shouldn't appears to have either gastroesophageal reflux disease or peptic ulcer disease. Does have history of COPD nicotine dependence and patient is willing to quit and quit smoking soon. Patient denied any fever chills patient chest pain is nonpleuritic. Review of Systems REVIEW OF SYSTEMS: CONSTITUTIONAL: No fever, no malaise, no fatigue. HEENT: No recent visual problems or hearing problems. Denied any sore throat. CARDIOVASCULAR: No orthopnea, PND, no palpitations, no syncope. PULMONARY: No shortness of breath, no cough, no hemoptysis. GASTROINTESTINAL: No diarrhea NEUROLOGICAL: No headaches, no weakness, no numbness. HEMATOLOGICAL: Denies any bleeding or petechiae. GENITOURINARY: Denies any burning micturition, frequency, or urgency. MUSCULOSKELETAL/RHEUMATOLOGICAL: Denies any joint pain, swelling, or any muscle pain. ENDOCRINE: Denies any polyuria or polydipsia. The rest of the 14-point review of systems is negative. Past Medical History Past Medical History: Chest Pain / Angina, COPD Additional Past Medical History / Comment(s): HX migraines,states chronic bronchitis History of Any Multi-Drug Resistant Organisms: None Reported Past Surgical History: Appendectomy, Tubal Ligation Past Anesthesia/Blood Transfusion Reactions: No Reported Reaction Past Psychological History: Anxiety Smoking Status: Current some day smoker Past Alcohol Use History: None Reported Additional Past Alcohol Use History / Comment(s): started smoking 1984 was smoking 3 ppd now down to 1-2 ppd Past Drug Use History: None Reported - Past Family History Brother(s) Family Medical History: Coronary Artery Disease (CAD), Myocardial Infarction ([place]) Additional Family Medical History / Comment(s): pacemaker Sister(s) Family Medical History: Mitral Valve Prolapse (MVP) Father Additional Family Medical History / Comment(s): "post op mrsa infection- from complications of that" Mother Family Medical History: Cancer Medications and Allergies Home Medications Medication Instructions Recorded Confirmed Type Budesonide-Formot 160-4.5 Mcg 2 puff INHALATION RT-BID #1 unit 12/01/17 06/04/18 Rx [Symbicort 160-4.5 Mcg Inhaler] Citalopram Hydrobromide [CeleXA] 20 mg PO DAILY #30 tab 12/01/17 06/04/18 Rx Aspirin [Adult Low Dose Aspirin EC] 81 mg PO DAILY 06/04/18 06/04/18 History Diltiazem HCl [Cartia Xt] 180 mg PO HS 06/04/18 06/04/18 History LORazepam [Ativan] 1 mg PO TID PRN 06/04/18 06/04/18 History Varenicline Tartrate [Chantix 1 mg PO HS 06/04/18 06/04/18 History Continuing Pack] Omeprazole [PriLOSEC] 20 mg PO AC-BRKFST #30 capsule. 06/05/18 Rx Allergies Allergy/AdvReac Type Severity Reaction Status Date / Time No Known Allergies Allergy Verified 06/04/18 21:42 Physical Exam Vitals: Vital Signs Temp Pulse Pulse Resp BP BP Pulse Ox 06/05/18 11:37 97.9 F 60 18 110/71 94 L 06/05/18 07:35 97.8 F 63 18 108/70 95 06/05/18 04:00 98.4 F 61 16 111/69 94 L 06/05/18 03:37 18 06/05/18 00:00 97.6 F 74 18 107/69 94 L 06/04/18 21:34 97.9 F 71 16 133/76 93 L 06/04/18 21:00 85 20 122/84 06/04/18 20:00 18 06/04/18 16:00 76 19 135/85 96 06/04/18 15:30 82 18 135/82 95 06/04/18 15:01 20 06/04/18 15:00 135/82 Intake and Output 06/04/18 06/05/18 06/05/18 22:59 06:59 14:59 Intake Total 48.989 200 Balance 48.989 200 Intake: Intake, IV Titration 48.989 Amount Heparin Sod,Pork in 0.45% 48.989 NaCl 25,000 unit In 0.45 % NaCl 1 250ml.bag @ 12 UNITS/KG/HR 6.804 mls/hr IV .Q24H [facility] Rx#: [id number] Oral 200 Other: # Voids 1 1 Weight 56.699 kg PHYSICAL EXAMINATION: GENERAL: The patient is alert and oriented x3, not in any acute distress. Well developed, well nourished. HEENT: Pupils are round and equally reacting to light. EOMI. No scleral icterus. No conjunctival pallor. Normocephalic, atraumatic. No pharyngeal erythema. No thyromegaly. CARDIOVASCULAR: S1 and S2 present. No murmurs, rubs, or gallops. PULMONARY: Chest is clear to auscultation, no wheezing or crackles. ABDOMEN: Soft, nontender, nondistended, normoactive bowel sounds. No palpable organomegaly. MUSCULOSKELETAL: No joint swelling or deformity. EXTREMITIES: No cyanosis, clubbing, or pedal edema. NEUROLOGICAL: Gross neurological examination did not reveal any focal deficits. SKIN: No rashes. Results CBC & Chem 7: 06/05/18 05:42 06/04/18 13:57 Labs: Abnormal Lab Results - Last 24 Hours (Table) 06/04/18 06/05/18 06/05/18 Range/Units 21:39 05:42 05:42 APTT 36.7 H 43.5 H (22.0-30.0) sec HDL Cholesterol 89 H (40-60) mg/dL Thrombosis Risk Factor Assmnt - Choose All That Apply Each Factor Represents 1 point: Age 41-60 years Thrombosis Risk Factor Assessment Total Risk Factor Score: 1 Thrombosis Risk Factor Assessment Level: Low Risk Assessment and Plan Plan: -Chest pain, rule out a concurrent syndromes, unstable angina, appears to be secondary to gastroesophageal reflux disease peptic ulcer disease further management as mentioned above -COPD without any acute exacerbation smoking cessation counseling was provided -Anxiety disorder Patient will be discharged today with Prilosec as mentioned above follow with Dr. Johns and PCP as an outpatient.
== END 2018-06-05 14:38 | disposition home or self-care (01) ==
LOC: EC 13:21 → 1SOBS 15:26
PROVIDERS: ADMIT Family Medicine; ATTEND Family Medicine
DX: R07.89 Other chest pain (principal); R10.13 Epigastric pain; J44.9 Chronic obstructive pulmonary disease, unspecified; R61 Generalized hyperhidrosis; R00.2 Palpitations; R00.0 Tachycardia, unspecified; G43.909 Migraine, unspecified, not intractable, without status migrainosus; F41.9 Anxiety disorder, unspecified; R42 Dizziness and giddiness; R11.2 Nausea with vomiting, unspecified; I27.20 Pulmonary hypertension, unspecified; I08.1 Rheumatic disorders of both mitral and tricuspid valves; F17.210 Nicotine dependence, cigarettes, uncomplicated; Z79.82 Long term (current) use of aspirin; Z79.51 Long term (current) use of inhaled steroids; Z79.899 Other long term (current) drug therapy; Z90.49 Acquired absence of other specified parts of digestive tract; Z98.51 Tubal ligation status; Z82.49 Family history of ischemic heart disease and other diseases of the circulatory system; Z83.1 Family history of other infectious and parasitic diseases; Z80.9 Family history of malignant neoplasm, unspecified
CPT/HCPCS: 96366 ×3; 96375 ×2; 96376 ×3; 96365; 99285; 36415; 94640; 93005; 83880; 80061; 80053; 83690; 83735; 84484 ×2; 85025; 85049; 85610; 85730 ×2; 71046; 76705; G0378 ×2; J2270 ×2; J1644 ×2; C9113

== ENCOUNTER 2018-07-09 07:45 | Emergency (ER) | payer OTHER ==
[2018-07-09] MEDS ORDERED: SODIUM CHLORIDE 0.9% 1,000 ML IV ONE (08:25)
[2018-07-09] MEDS ORDERED: ONDANSETRON 4 MG/2 ML VIAL IVP STA (08:26)
[2018-07-09] MEDS ORDERED: ACETAMINOPHEN TAB 500 MG TAB PO STA (08:26)
--- NOTE | 2018-07-09 08:30 | ED ---
General Adult HPI - General Chief complaint: Psychiatric Symptoms Stated complaint: Mental Health/etoh Time Seen by Provider: 07/09/18 07:55 Source: patient, family, RN notes reviewed Mode of arrival: ambulatory Limitations: no limitations - History of Present Illness Initial comments: This is a 58-year-old female who presents emergency department stating that she has been having suicidal ideations. Patient states she has had a lot of stress at work lately and become more more depressed over the last 2 weeks. Patient states she was an alcoholic but has not had a drink 20 years and yesterday she drank heavily. Patient states she has had nothing else to drink since 9:00 last night except for some mouthwash. Patient states she is nauseated and has a headache but has no chest pain difficulty breathing shortness of breath per patient denies any abdominal pain patient denies any vomiting or diarrhea. Patient denies any fever or chills. Patient denies any numbness or weakness. Patient states she still feels depressed and suicidal. - Related Data Home Medications Medication Instructions Recorded Confirmed Aspirin [Adult Low Dose Aspirin EC] 81 mg PO DAILY 06/04/18 07/09/18 Diltiazem HCl [Cartia Xt] 180 mg PO HS 06/04/18 07/09/18 LORazepam [Ativan] 1 mg PO TID PRN 06/04/18 07/09/18 Previous Rx's Medication Instructions Recorded Budesonide-Formot 160-4.5 Mcg 2 puff INHALATION RT-BID #1 unit 12/01/17 [Symbicort 160-4.5 Mcg Inhaler] Citalopram Hydrobromide [CeleXA] 20 mg PO DAILY #30 tab 12/01/17 Allergies Allergy/AdvReac Type Severity Reaction Status Date / Time No Known Allergies Allergy Verified 07/09/18 09:37 Review of Systems ROS Statement: Those systems with pertinent positive or pertinent negative responses have been documented in the HPI. ROS Other: All systems not noted in ROS Statement are negative. Past Medical History Past Medical History: Chest Pain / Angina, COPD Additional Past Medical History / Comment(s): HX migraines,states chronic bronchitis History of Any Multi-Drug Resistant Organisms: None Reported Past Surgical History: Appendectomy, Tubal Ligation Past Anesthesia/Blood Transfusion Reactions: No Reported Reaction Past Psychological History: Anxiety Smoking Status: Current some day smoker Past Drug Use History: None Reported - Past Family History Brother(s) Family Medical History: Coronary Artery Disease (CAD), Myocardial Infarction ([place]) Additional Family Medical History / Comment(s): pacemaker Sister(s) Family Medical History: Mitral Valve Prolapse (MVP) Father Additional Family Medical History / Comment(s): "post op mrsa infection- from complications of that" Mother Family Medical History: Cancer General Exam - General Exam Comments Initial Comments: GENERAL: Patient is well-developed and well-nourished. Patient is nontoxic and well-hydr ated and is in mild distress. ENT: Neck is soft and supple. No significant lymphadenopathy is noted. Oropharynx is clear. Moist mucous membranes. Neck has full range of motion without eliciting any pain. EYES: The sclera were anicteric and conjunctiva were pink and moist. Extraocular movements were intact and pupils were equal round and reactive to light. Eyelids were unremarkable. PULMONARY: Unlabored respirations. Good breath sounds bilaterally. No audible rales rhonchi or wheezing was noted. CARDIOVASCULAR: There is a regular rate and rhythm without any murmurs gallops or rubs. ABDOMEN: Soft and nontender with normal bowel sounds. SKIN: Skin is clear with no lesions or rashes and otherwise unremarkable. NEUROLOGIC: Patient is alert and oriented x3. Cranial nerves II through XII are grossly intact. Motor and sensory are also intact. Normal speech, volume and content. Symmetrical smile. MUSCULOSKELETAL: Normal extremities with adequate strength and full range of motion. No lower extremity swelling or edema. No calf tenderness. LYMPHATICS: No significant lymphadenopathy is noted PSYCHIATRIC: Patient states she is depressed and is suicidal Limitations: no limitations Course Vital Signs 07/09/18 07/09/18 07:54 11:06 Temperature 98.2 F 98.1 F Pulse Rate 102 H 72 Respiratory 18 16 Rate Blood Pressure 143/86 132/89 O2 Sat by Pulse 94 L 96 Oximetry Medical Decision Making - Medical Decision Making EPS evaluated the patient and determined that the patient needed to be admitted. EPS nurse filled out a petition and I filled out a clinical certification for the patient's admission. Patient will probably need to be transferred. - Lab Data Result diagrams: 07/09/18 10:32 07/09/18 10:32 Lab Results 07/09/18 07/09/18 Range/Units 10:32 10:32 WBC 6.4 (3.8-10.6) k/uL RBC 5.21 (3.80-5.40) m/uL Hgb 16.7 H (11.4-16.0) gm/dL Hct 50.7 H (34.0-46.0) % MCV 97.3 (80.0-100.0) fL MCH 32.1 (25.0-35.0) pg MCHC 33.0 (31.0-37.0) g/dL RDW 13.8 (11.5-15.5) % Plt Count 368 (150-450) k/uL Neutrophils % 72 % Lymphocytes % 21 % Monocytes % 5 % Eosinophils % 1 % Basophils % 0 % Neutrophils # 4.6 (1.3-7.7) k/uL Lymphocytes # 1.3 (1.0-4.8) k/uL Monocytes # 0.3 (0-1.0) k/uL Eosinophils # 0.1 (0-0.7) k/uL Basophils # 0.0 (0-0.2) k/uL Sodium 128 L (137-145) mmol/L Potassium 4.7 (3.5-5.1) mmol/L Chloride 95 L (98-107) mmol/L Carbon Dioxide 22 (22-30) mmol/L Anion Gap 11 mmol/L BUN 6 L (7-17) mg/dL Creatinine 0.47 L (0.52-1.04) mg/dL Est GFR (CKD-EPI)AfAm >90 (>60 ml/min/1.73 sqM) Est GFR (CKD-EPI)NonAf >90 (>60 ml/min/1.73 sqM) Glucose 88 (74-99) mg/dL Calcium 9.7 (8.4-10.2) mg/dL Total Bilirubin 0.5 (0.2-1.3) mg/dL AST 33 (14-36) U/L ALT 26 (9-52) U/L Alkaline Phosphatase 108 (38-126) U/L Total Protein 7.4 (6.3-8.2) g/dL Albumin 4.8 (3.5-5.0) g/dL Disposition Clinical Impression: Depression, Suicidal ideation Disposition: TRANSFER TO PSYCH HOSP/UNIT Referrals: None,Stated [Primary Care Provider] - 1-2 days Time of Disposition: 11:13
[2018-07-09] MEDS ORDERED: LORazepam 2 MG/ML INJ IV STA ×4 (10:46→21:43)
[2018-07-09 10:51] LABS: ALT 26 U/L (9-52); AST 33 U/L (14-36); Albumin 4.8 g/dL (3.5-5.0); Alkaline Phosphatase 108 U/L (38-126); Anion Gap 11 mmol/L; Blood Urea Nitrogen 6 mg/dL (7-17); Calcium 9.7 mg/dL (8.4-10.2); Carbon Dioxide 22 mmol/L (22-30); Chloride 95 mmol/L (98-107); Glucose 88 mg/dL (74-99); Potassium 4.7 mmol/L (3.5-5.1); Sodium 128 mmol/L (137-145); Total Bilirubin 0.5 mg/dL (0.2-1.3); Total Protein 7.4 g/dL (6.3-8.2)
[2018-07-09 10:56] LABS: Basophils % (A) 0 %; Eosinophils # (A) 0.1 k/uL (0-0.7); Eosinophils % (A) 1 %; HCT 50.7 % (34.0-46.0); HGB 16.7 gm/dL (11.4-16.0); Lymphocytes # (A) 1.3 k/uL (1.0-4.8); Lymphocytes % (A) 21 %; MCH 32.1 pg (25.0-35.0); MCV 97.3 fL (80.0-100.0); Monocytes # (A) 0.3 k/uL (0-1.0); Monocytes % (A) 5 %; Neutrophils # (A) 4.6 k/uL (1.3-7.7); Neutrophils % (A) 72 %; Platelet Count 368 k/uL (150-450); RBC 5.21 m/uL (3.80-5.40); RDW 13.8 % (11.5-15.5); WBC 6.4 k/uL (3.8-10.6)
[2018-07-09 12:22] LABS: Amphetamine Screen,Urine Not Detected (NotDetected); Benzodiazepines Screen,Urine Detected (NotDetected); Cocaine Screen,Urine Not Detected (NotDetected); Opiate Screen,Urine Not Detected (NotDetected); Phencyclidine Screen,Urine Not Detected (NotDetected); Urn Cannabinoid Scrn Not Detected (NotDetected)
[2018-07-09 12:23] LABS: Barbiturate Screen,Urine Not Detected (NotDetected); Methadone Screen, Urine Not Detected (NotDetected); Oxycodone Screen, Urine Not Detected (NotDetected); Tricyclic Antidepressant,Urine Not Detected (NotDetected)
[2018-07-09] MEDS ORDERED: NICOTINE 21MG/24HR PATCH TRANSDERM STA (13:40)
[2018-07-09] MEDS ORDERED: DILTIAZEM CD 180 MG CAP.ER.24H PO ONE (22:15)
[2018-07-09 23:32] VITALS: BP 132/95; PULSE 80; RESP 16
[2018-07-09 23:48] VITALS: TEMP 98.7
== END 2018-07-09 23:47 ==
LOC: EC 07:45
DX: R45.851 Suicidal ideations (principal); F32.9 Major depressive disorder, single episode, unspecified; R51 Headache; R11.0 Nausea; F17.200 Nicotine dependence, unspecified, uncomplicated; Z79.82 Long term (current) use of aspirin; Z79.899 Other long term (current) drug therapy
CPT/HCPCS: 82075; 36415; 80053; 85025; 80306; 99285; 96374; 96375; 96376 ×3; 96361; S4990; J2060; J2405

== ENCOUNTER 2018-08-22 07:10 | Inpatient (IN) | payer OTHER ==
[2018-08-22] MEDS ORDERED: IPRATROPIUM-ALBUTEROL 3 ML NEB INHALATION STA (07:31)
--- NOTE | 2018-08-22 07:34 | ED ---
General Adult HPI - General Chief complaint: Shortness of Breath Stated complaint: Diff Breathing Time Seen by Provider: 08/22/18 07:21 Source: patient, RN notes reviewed Mode of arrival: wheelchair Limitations: no limitations - History of Present Illness Initial comments: Patient is a pleasant 58-year-old female presenting to the emergency department with difficulty in breathing. Onset of symptoms was around a week ago. Patient has been having cough with productive green sputum. No fevers. Patient does have history of similar symptoms previously associated with COPD. Patient states he also feels like she is swelling. Patient states she is getting approximately 15 pounds in the past month. Patient also complains of back pain and headache which are chronic and requests pain medication for them. - Related Data Home Medications Medication Instructions Recorded Confirmed Aspirin [Adult Low Dose Aspirin EC] 81 mg PO DAILY 06/04/18 07/09/18 Diltiazem HCl [Cartia Xt] 180 mg PO HS 06/04/18 07/09/18 LORazepam [Ativan] 1 mg PO TID PRN 06/04/18 07/09/18 Previous Rx's Medication Instructions Recorded Budesonide-Formot 160-4.5 Mcg 2 puff INHALATION RT-BID #1 unit 12/01/17 [Symbicort 160-4.5 Mcg Inhaler] Citalopram Hydrobromide [CeleXA] 20 mg PO DAILY #30 tab 12/01/17 Allergies Allergy/AdvReac Type Severity Reaction Status Date / Time No Known Allergies Allergy Verified 08/22/18 07:18 Review of Systems ROS Statement: Those systems with pertinent positive or pertinent negative responses have been documented in the HPI. ROS Other: All systems not noted in ROS Statement are negative. Constitutional: Denies: fever Eyes: Denies: eye pain ENT: Denies: ear pain Respiratory: Reports: cough, dyspnea Cardiovascular: Denies: chest pain Endocrine: Reports: fatigue Gastrointestinal: Denies: abdominal pain Genitourinary: Denies: dysuria Musculoskeletal: Denies: back pain Skin: Denies: rash Neurological: Reports: as per HPI, headache Past Medical History Past Medical History: Chest Pain / Angina, COPD Additional Past Medical History / Comment(s): HX migraines,states chronic bronchitis History of Any Multi-Drug Resistant Organisms: None Reported Past Surgical History: Appendectomy, Tubal Ligation Past Anesthesia/Blood Transfusion Reactions: No Reported Reaction Past Psychological History: Anxiety, Depression Smoking Status: Current some day smoker Past Alcohol Use History: None Reported Past Drug Use History: None Reported - Past Family History Brother(s) Family Medical History: Coronary Artery Disease (CAD), Myocardial Infarction ([place]) Additional Family Medical History / Comment(s): pacemaker Sister(s) Family Medical History: Mitral Valve Prolapse (MVP) Father Additional Family Medical History / Comment(s): "post op mrsa infection- from complications of that" Mother Family Medical History: Cancer General Exam Limitations: no limitations General appearance: alert, in no apparent distress Head exam: Present: atraumatic Eye exam: Present: normal appearance, PERRL ENT exam: Present: normal oropharynx Neck exam: Present: normal inspection Respiratory exam: Present: wheezes, decreased breath sounds Cardiovascular Exam: Present: regular rate, normal rhythm GI/Abdominal exam: Present: soft. Absent: tenderness Extremities exam: Present: pedal edema (Trace bilateral). Absent: calf tenderness Neurological exam: Present: alert Psychiatric exam: Present: normal affect, normal mood Skin exam: Present: normal color Course Vital Signs 08/22/18 08/22/18 08/22/18 07:15 08:05 08:46 Temperature 98.2 F Pulse Rate 83 83 84 Respiratory 22 20 Rate Blood Pressure 149/84 129/73 O2 Sat by Pulse 95 94 L Oximetry EKG Findings - EKG Comments: EKG Findings:: Normal sinus rhythm 81. NV 138. QRS 86. QT 382. QTC 443. Normal axis. Normal QRS. No acute ST change. Medical Decision Making - Medical Decision Making Patient reevaluated and states she only feels a little bit better. Lung sounds with continued decreased air exchange however decreased wheezing. Patient and family updated on results and plan. Dr. Gongora has been paged for admission. Patient is scheduled to see Dr. Andrew. - Lab Data Result diagrams: 08/22/18 07:47 08/22/18 07:47 Lab Results 08/22/18 08/22/18 08/22/18 Range/Units 07:47 07:47 07:47 WBC 9.4 (3.8-10.6) k/uL RBC 4.65 (3.80-5.40) m/uL Hgb 14.8 (11.4-16.0) gm/dL Hct 46.2 H (34.0-46.0) % MCV 99.4 (80.0-100.0) fL MCH 31.8 (25.0-35.0) pg MCHC 32.0 (31.0-37.0) g/dL RDW 12.8 (11.5-15.5) % Plt Count 337 (150-450) k/uL Neutrophils % 81 % Lymphocytes % 10 % Monocytes % 6 % Eosinophils % 2 % Basophils % 0 % Neutrophils # 7.6 (1.3-7.7) k/uL Lymphocytes # 1.0 (1.0-4.8) k/uL Monocytes # 0.5 (0-1.0) k/uL Eosinophils # 0.2 (0-0.7) k/uL Basophils # 0.0 (0-0.2) k/uL PT (9.0-12.0) sec INR (<1.2) APTT (22.0-30.0) sec Sodium 134 L (137-145) mmol/L Potassium 4.7 (3.5-5.1) mmol/L Chloride 94 L (98-107) mmol/L Carbon Dioxide 26 (22-30) mmol/L Anion Gap 14 mmol/L BUN 10 (7-17) mg/dL Creatinine 0.59 (0.52-1.04) mg/dL Est GFR (CKD-EPI)AfAm >90 (>60 ml/min/1.73 sqM) Est GFR (CKD-EPI)NonAf >90 (>60 ml/min/1.73 sqM) Glucose 118 H (74-99) mg/dL Calcium 9.7 (8.4-10.2) mg/dL Total Bilirubin 0.5 (0.2-1.3) mg/dL AST 30 (14-36) U/L ALT 38 (9-52) U/L Alkaline Phosphatase 115 (38-126) U/L Troponin I (0.000-0.034) ng/mL NT-Pro-B Natriuret Pep 63 pg/mL Total Protein 7.5 (6.3-8.2) g/dL Albumin 4.7 (3.5-5.0) g/dL 08/22/18 08/22/18 Range/Units 07:47 07:47 WBC (3.8-10.6) k/uL RBC (3.80-5.40) m/uL Hgb (11.4-16.0) gm/dL Hct (34.0-46.0) % MCV (80.0-100.0) fL MCH (25.0-35.0) pg MCHC (31.0-37.0) g/dL RDW (11.5-15.5) % Plt Count (150-450) k/uL Neutrophils % % Lymphocytes % % Monocytes % % Eosinophils % % Basophils % % Neutrophils # (1.3-7.7) k/uL Lymphocytes # (1.0-4.8) k/uL Monocytes # (0-1.0) k/uL Eosinophils # (0-0.7) k/uL Basophils # (0-0.2) k/uL PT 9.4 (9.0-12.0) sec INR 0.9 (<1.2) APTT 23.3 (22.0-30.0) sec Sodium (137-145) mmol/L Potassium (3.5-5.1) mmol/L Chloride (98-107) mmol/L Carbon Dioxide (22-30) mmol/L Anion Gap mmol/L BUN (7-17) mg/dL Creatinine (0.52-1.04) mg/dL Est GFR (CKD-EPI)AfAm (>60 ml/min/1.73 sqM) Est GFR (CKD-EPI)NonAf (>60 ml/min/1.73 sqM) Glucose (74-99) mg/dL Calcium (8.4-10.2) mg/dL Total Bilirubin (0.2-1.3) mg/dL AST (14-36) U/L ALT (9-52) U/L Alkaline Phosphatase (38-126) U/L Troponin I <0.012 (0.000-0.034) ng/mL NT-Pro-B Natriuret Pep pg/mL Total Protein (6.3-8.2) g/dL Albumin (3.5-5.0) g/dL - Radiology Data Radiology results: image reviewed (Chest x-ray reveals no acute process, COPD.) Disposition Clinical Impression: Acute exacerbation of chronic obstructive airways disease Disposition: ADMITTED IP TO THIS HOSP Is patient prescribed a controlled substance at d/c from ED?: No Referrals: None,Stated [REFERRING] - 1-2 days Decision Time: 09:10
[2018-08-22] MEDS ORDERED: MORPHINE SULFATE 4 MG/ML SYRINGE IV STA (07:42)
[2018-08-22 08:02] LABS: Basophils % (A) 0 %; Eosinophils # (A) 0.2 k/uL (0-0.7); Eosinophils % (A) 2 %; HCT 46.2 % (34.0-46.0); HGB 14.8 gm/dL (11.4-16.0); Lymphocytes % (A) 10 %; MCH 31.8 pg (25.0-35.0); MCV 99.4 fL (80.0-100.0); Mean Platelet Volume 6.6; Monocytes # (A) 0.5 k/uL (0-1.0); Monocytes % (A) 6 %; Neutrophils # (A) 7.6 k/uL (1.3-7.7); Neutrophils % (A) 81 %; Platelet Count 337 k/uL (150-450); RBC 4.65 m/uL (3.80-5.40); RDW 12.8 % (11.5-15.5); WBC 9.4 k/uL (3.8-10.6)
[2018-08-22 08:16] LABS: ALT 38 U/L (9-52); AST 30 U/L (14-36); African American GFR (CKD) >90 (>60 ml/min/1.73 sqM); Albumin 4.7 g/dL (3.5-5.0); Alkaline Phosphatase 115 U/L (38-126); Anion Gap 14 mmol/L; Blood Urea Nitrogen 10 mg/dL (7-17); Calcium 9.7 mg/dL (8.4-10.2); Carbon Dioxide 26 mmol/L (22-30); Chloride 94 mmol/L (98-107); Glucose 118 mg/dL (74-99); Potassium 4.7 mmol/L (3.5-5.1); Sodium 134 mmol/L (137-145); Total Bilirubin 0.5 mg/dL (0.2-1.3); Total Protein 7.5 g/dL (6.3-8.2)
--- NOTE | 2018-08-22 08:34 | XR ---
EXAMINATION TYPE: XR chest 2V DATE OF EXAM: 08/22/2018 COMPARISON: 06/02/2018 HISTORY: Difficulty breathing TECHNIQUE: Frontal and lateral views of the chest are obtained. FINDINGS: There is no focal air space opacity, pleural effusion, or pneumothorax seen. Pulmonary hy perinflation and flattening the diaphragms are on the basis of underlying COPD. Minimal biapical pleu ral parenchymal scarring. The cardiac silhouette size is within normal limits. The osseous structur es are intact. IMPRESSION: No acute cardiopulmonary process. Radiographic sequela of COPD.
[2018-08-22 08:42] LABS: INR 0.9 (<1.2); Partial Thromboplastin Time 23.3 sec (22.0-30.0); Prothrombin Time 9.4 sec (9.0-12.0)
[2018-08-22] MEDS ORDERED: IPRATROPIUM-ALBUTEROL 3 ML NEB INHALATION PRN (09:11)
[2018-08-22] MEDS ORDERED: methylPREDNISolone SOD SUCCI 125 MG/2 ML VIAL IV STA (09:11)
[2018-08-22] MEDS: AZITHROMYCIN 500 MG TAB PO SCH (09:27)
[2018-08-22] MEDS: Acetaminophen-Codeine 300-30mg TAB PO PRN ×2 (09:29→15:25)
[2018-08-22] MEDS: IPRATROPIUM-ALBUTEROL 3 ML NEB INHALATION SCH ×3 (12:43→21:32)
[2018-08-22] MEDS: methylPREDNISolone SOD SUCCI 125 MG/2 ML VIAL IV SCH ×2 (14:48→20:32)
[2018-08-22] MEDS ORDERED: RX INFO: IV CONTRAST WAS GIVEN 1 EACH MISC MISCELLANE PRN (15:54)
--- NOTE | 2018-08-22 17:11 | CT ---
EXAMINATION TYPE: CT chest w con DATE OF EXAM: 08/22/2018 COMPARISON: 10/31/2016 HISTORY: COPD CT DLP: 147.1 mGycm Automated exposure control for dose reduction was used. CONTRAST: CT scan of the chest is performed with IV Contrast, patient injected with 100 mL of Isovue 300. FINDINGS: There is some patchy infiltrate in the anterior segment right upper lobe with linear density. There i s no pleural effusion. The other lung gaviria are clear. Heart and mediastinum are normal. There are n o hilar masses. Thoracic aorta shows mild atheromatous change. The bony thorax is intact. IMPRESSION: Compared to last exam there is development of some pneumonia and atelectasis anterior se gment right upper lobe. No suspicious mass. There is stable small area of reticular scarring in the m ore lateral aspect anterior segment right upper lobe compared to old exam. Mild pulmonary emphysema u nchanged.
[2018-08-22 18:03] LABS: Glucose,Whole Blood 167 mg/dL (75-99)
[2018-08-22] MEDS: INSULIN ASPART (NovoLOG) 100 UNIT/ML VIAL SQ SCH ×2 (18:17→20:29)
[2018-08-22] MEDS: PANTOPRAZOLE 40 MG/10 ML VIAL IVP SCH (19:22)
[2018-08-22] MEDS: NICOTINE 21MG/24HR PATCH TRANSDERM SCH (19:25)
[2018-08-22 20:29] LABS: Glucose,Whole Blood 185 mg/dL (75-99)
[2018-08-22] MEDS: QUEtiapine 100 MG TAB PO PRN (21:13)
[2018-08-22] MEDS: SYMBICORT 160-4.5 MCG INHALER INHALATION SCH (21:32)
[2018-08-23] MEDS: BENZONATATE 100 MG CAP PO PRN ×2 (00:10→09:08)
[2018-08-23] MEDS: Acetaminophen-Codeine 300-30mg TAB PO PRN ×3 (00:10→16:20)
[2018-08-23] MEDS: methylPREDNISolone SOD SUCCI 125 MG/2 ML VIAL IV SCH ×5 (02:00→23:43)
[2018-08-23 06:34] LABS: Glucose,Whole Blood 198 mg/dL (75-99)
[2018-08-23] MEDS: INSULIN ASPART (NovoLOG) 100 UNIT/ML VIAL SQ SCH ×4 (06:36→20:39)
[2018-08-23] MEDS: NICOTINE 21MG/24HR PATCH TRANSDERM SCH (08:19)
[2018-08-23] MEDS: DILTIAZEM CD 180 MG CAP.ER.24H PO SCH ×2 (08:20→08:24)
[2018-08-23] MEDS: AZITHROMYCIN 500 MG TAB PO SCH (08:20)
[2018-08-23] MEDS: SERTRALINE 50 MG TAB PO SCH (08:24)
[2018-08-23] MEDS: ASPIRIN 325 MG TAB PO SCH (08:24)
[2018-08-23] MEDS: PANTOPRAZOLE 40 MG/10 ML VIAL IVP SCH (08:25)
[2018-08-23] MEDS: IPRATROPIUM-ALBUTEROL 3 ML NEB INHALATION SCH ×4 (08:37→18:51)
[2018-08-23] MEDS: SYMBICORT 160-4.5 MCG INHALER INHALATION SCH ×2 (08:37→18:51)
[2018-08-23] MEDS ORDERED: CITALOPRAM HYDROBROMIDE 20 MG TAB PO SCH (09:00)
[2018-08-23] MEDS ORDERED: SERTRALINE 50 MG TAB PO SCH (09:00)
[2018-08-23 11:51] LABS: Basophils % (A) 0 %; Eosinophils % (A) 0 %; HCT 42.4 % (34.0-46.0); HGB 13.7 gm/dL (11.4-16.0); Lymphocytes # (A) 0.5 k/uL (1.0-4.8); Lymphocytes % (A) 6 %; MCH 32.5 pg (25.0-35.0); MCHC 32.4 g/dL (31.0-37.0); MCV 100.3 fL (80.0-100.0); Mean Platelet Volume 8.1; Monocytes # (A) 0.2 k/uL (0-1.0); Monocytes % (A) 2 %; Neutrophils # (A) 7.8 k/uL (1.3-7.7); Neutrophils % (A) 91 %; Platelet Count 305 k/uL (150-450); RBC 4.23 m/uL (3.80-5.40); RDW 13.6 % (11.5-15.5); WBC 8.5 k/uL (3.8-10.6)
[2018-08-23 11:59] LABS: African American GFR (CKD) >90 (>60 ml/min/1.73 sqM); Anion Gap 11 mmol/L; Blood Urea Nitrogen 12 mg/dL (7-17); Calcium 9.4 mg/dL (8.4-10.2); Carbon Dioxide 25 mmol/L (22-30); Chloride 93 mmol/L (98-107); Glucose 177 mg/dL (74-99); Potassium 4.8 mmol/L (3.5-5.1); Sodium 129 mmol/L (137-145)
[2018-08-23 12:16] LABS: Glucose,Whole Blood 140 mg/dL (75-99)
[2018-08-23 17:18] LABS: Glucose,Whole Blood 145 mg/dL (75-99)
--- NOTE | 2018-08-23 18:17 | P.HPPUL ---
History of Present Illness H&P Date: 08/23/18 Chief Complaint: Shortness of breath for over a week hoarseness for a month This is a 58-year-old female who was seen eval reexamined while covering for Dr. Clemente Gongora this patient has been admitted into the hospital from the emergency department with ongoing symptoms for almost a month with hoarseness also has shortness of breath with cough and green sputum production started about a week ago she has a history of strep infection with those problem she was admitted into the hospital she takes the Symbicort at home along with as needed Ventolin Review of Systems All systems: negative Past Medical History Past Medical History: Chest Pain / Angina, COPD, GERD/Reflux Additional Past Medical History / Comment(s): Chronic bronchitis, sinus tachycardia, chronic back pain, migraines, ROSEBUD bilaterally, bilateral tinnitis. History of Any Multi-Drug Resistant Organisms: None Reported Past Surgical History: Appendectomy, Tubal Ligation Past Anesthesia/Blood Transfusion Reactions: No Reported Reaction Smoking Status: Current every day smoker - Past Family History Brother(s) Family Medical History: Coronary Artery Disease (CAD), Myocardial Infarction ([place]) Additional Family Medical History / Comment(s): Brother had [place] in his early 40s, pacemaker Sister(s) Family Medical History: Mitral Valve Prolapse (MVP) Father Additional Family Medical History / Comment(s): "post op mrsa infection- from complications of that" Mother Family Medical History: Cancer Additional Family Medical History / Comment(s): Lung cancer Medications and Allergies Home Medications Medication Instructions Recorded Confirmed Type Budesonide-Formot 160-4.5 Mcg 2 puff INHALATION RT-BID #1 unit 12/01/17 08/22/18 Rx [Symbicort 160-4.5 Mcg Inhaler] Diltiazem HCl [Cartia Xt] 180 mg PO DAILY 06/04/18 08/22/18 History Albuterol Inhaler [Ventolin Hfa 1 - 2 puff INHALATION RT-Q6H PRN 08/22/18 08/22/18 History Inhaler] Aspirin EC [Ecotrin] 325 mg PO DAILY 08/22/18 08/22/18 History QUEtiapine FUMARATE [SEROquel] 300 mg PO HS PRN 08/22/18 08/22/18 History Sertraline [Zoloft] 50 mg PO DAILY 08/22/18 08/22/18 History Sertraline [Zoloft] 100 mg PO DAILY 08/22/18 08/22/18 History risperiDONE [RisperDAL] 2 mg PO BID 08/22/18 08/22/18 History Allergies Allergy/AdvReac Type Severity Reaction Status Date / Time No Known Allergies Allergy Verified 08/22/18 09:50 Physical Examination Vital signs: Vital Signs Temp Pulse Resp BP Pulse Ox 98.2 F 83 22 149/84 95 08/22/18 07:15 08/22/18 07:15 08/22/18 07:15 08/22/18 07:15 08/22/18 07:15 General appearance: no acute distress Eyes: nonicteric, icteric ENT: oropharynx moist Neck: no lymphadenopathy Auscultation: Bilateral: diminished breath sounds, wheezes, rhonchi Percussion: Bilateral: not dull Tactile fremitus: Bilateral: normal Cardiovascular: regular rate and rhythm Gastrointestinal: normoactive bowel sounds Integumentary: normal Extremities: no cyanosis Musculoskeletal: no deformities Gait: normal gait, normal posture normal mental status, non-focal exam, CN II-XII normal, motor strength normal and symmetric mood appropriate, affect normal Results - Laboratory Findings CBC and BMP: 08/23/18 07:16 08/23/18 07:16 PT/INR, D-dimer PT 9.4 sec (9.0-12.0) 08/22/18 07:47 INR 0.9 (<1.2) 08/22/18 07:47 Abnormal lab findings: Abnormal Labs 08/22/18 08/22/18 08/22/18 07:47 07:47 18:01 Hct 46.2 H MCV Neutrophils # Lymphocytes # Sodium 134 L Chloride 94 L Glucose 118 H POC Glucose (mg/dL) 167 H 08/22/18 08/23/18 08/23/18 20:21 06:27 07:16 Hct MCV 100.3 H Neutrophils # 7.8 H Lymphocytes # 0.5 L Sodium Chloride Glucose POC Glucose (mg/dL) 185 H 198 H 08/23/18 08/23/18 08/23/18 07:16 12:15 17:17 Hct MCV Neutrophils # Lymphocytes # Sodium 129 L Chloride 93 L Glucose 177 H POC Glucose (mg/dL) 140 H 145 H - Diagnostic Findings Chest x-ray: pending, report reviewed CT scan - chest: pending, report reviewed (Right upper lobe infiltrate, no hilar mediastinal lymph nodes or masses present) Assessment and Plan Assessment: Right upper lobe pneumonia Acute COPD exacerbation Tracheobronchitis Mood disorder depression Hoarseness Hyponatremia Plan: Broad-spectrum antibiotics IV steroids Breathing treatments Continue home medications Observe sodium close Time with Patient: Greater than 30
[2018-08-23 20:35] LABS: Glucose,Whole Blood 231 mg/dL (75-99)
[2018-08-23] MEDS: BENZOCAINE/MENTHOL LOZENG 1 EACH LOZENGE MUCOUS MEM PRN (21:18)
[2018-08-24] MEDS: QUEtiapine 100 MG TAB PO PRN ×2 (00:02→23:02)
[2018-08-24 06:22] LABS: Glucose,Whole Blood 164 mg/dL (75-99)
[2018-08-24] MEDS: methylPREDNISolone SOD SUCCI 125 MG/2 ML VIAL IV SCH ×2 (06:28→12:07)
[2018-08-24] MEDS: PANTOPRAZOLE 40 MG TABLET PO SCH (06:29)
[2018-08-24] MEDS: INSULIN ASPART (NovoLOG) 100 UNIT/ML VIAL SQ SCH ×4 (06:29→20:44)
[2018-08-24] MEDS: BENZOCAINE/MENTHOL LOZENG 1 EACH LOZENGE MUCOUS MEM PRN ×2 (06:34→18:51)
[2018-08-24 07:30] LABS: ALT 30 U/L (9-52); AST 30 U/L (14-36); African American GFR (CKD) >90 (>60 ml/min/1.73 sqM); Albumin 4.2 g/dL (3.5-5.0); Alkaline Phosphatase 74 U/L (38-126); Anion Gap 8 mmol/L; Blood Urea Nitrogen 15 mg/dL (7-17); Calcium 9.4 mg/dL (8.4-10.2); Carbon Dioxide 28 mmol/L (22-30); Chloride 96 mmol/L (98-107); Glucose 147 mg/dL (74-99); Sodium 132 mmol/L (137-145); Total Bilirubin 0.5 mg/dL (0.2-1.3); Total Protein 6.9 g/dL (6.3-8.2)
[2018-08-24 07:36] LABS: Potassium 5.3 mmol/L (3.5-5.1)
[2018-08-24 07:42] LABS: Basophils % (A) 0 %; Eosinophils % (A) 0 %; HCT 45.6 % (34.0-46.0); HGB 14.5 gm/dL (11.4-16.0); Lymphocytes # (A) 0.5 k/uL (1.0-4.8); Lymphocytes % (A) 3 %; MCH 31.6 pg (25.0-35.0); MCHC 31.9 g/dL (31.0-37.0); MCV 99.3 fL (80.0-100.0); Mean Platelet Volume 7.1; Monocytes # (A) 0.4 k/uL (0-1.0); Monocytes % (A) 3 %; Neutrophils # (A) 13.5 k/uL (1.3-7.7); Neutrophils % (A) 94 %; Platelet Count 359 k/uL (150-450); RBC 4.59 m/uL (3.80-5.40); RDW 13.8 % (11.5-15.5); WBC 14.4 k/uL (3.8-10.6)
[2018-08-24] MEDS: SERTRALINE 50 MG TAB PO SCH (08:25)
[2018-08-24] MEDS: AZITHROMYCIN 500 MG TAB PO SCH (08:25)
[2018-08-24] MEDS: ASPIRIN 325 MG TAB PO SCH (08:26)
[2018-08-24] MEDS: NICOTINE 21MG/24HR PATCH TRANSDERM SCH (08:26)
[2018-08-24] MEDS: IPRATROPIUM-ALBUTEROL 3 ML NEB INHALATION SCH ×4 (08:47→20:21)
[2018-08-24] MEDS: SYMBICORT 160-4.5 MCG INHALER INHALATION SCH ×2 (08:47→20:21)
[2018-08-24] MEDS: Acetaminophen-Codeine 300-30mg TAB PO PRN ×2 (08:55→17:00)
[2018-08-24] MEDS: DILTIAZEM CD 180 MG CAP.ER.24H PO SCH (08:59)
[2018-08-24 11:26] LABS: Glucose,Whole Blood 95 mg/dL (75-99)
[2018-08-24 17:22] LABS: Glucose,Whole Blood 171 mg/dL (75-99)
--- NOTE | 2018-08-24 17:40 | P.PN ---
Subjective Progress Note Date: 08/24/18 Principal diagnosis: Acute COPD exacerbation and tracheobronchitis, mood disorder depression, hoarseness, hyponatremia 08/24/2018, patient seen and evaluated examined during the rounds has been doing better until this morning able to get up and walk around got tired however she woke up this afternoon with increased shortness of breath and chest tightness breathing treatment is been given with that she felt better but still have ongoing wheezing This is a 58-year-old female who was seen eval reexamined while covering for Dr. Clemente Gongora this patient has been admitted into the hospital from the emergency department with ongoing symptoms for almost a month with hoarseness also has shortness of breath with cough and green sputum production started about a week ago she has a history of strep infection with those problem she was admitted into the hospital she takes the Symbicort at home along with as needed Ventolin Objective - Vital Signs Vital signs: Vital Signs Temp 97.4 F L 08/24/18 17:10 Pulse 88 08/24/18 17:10 Resp 20 08/24/18 17:10 BP 96/66 08/24/18 17:10 Pulse Ox 91 L 08/24/18 17:10 Intake & Output 08/23/18 08/24/18 08/24/18 18:59 06:59 18:59 Intake Total 1400 Balance 1400 Intake: Oral 1400 Other: # Voids 2 1 - Exam General appearance: no acute distress Eyes: nonicteric, icteric ENT: oropharynx moist Neck: no lymphadenopathy Auscultation: Bilateral: diminished breath sounds, wheezes, rhonchi Percussion: Bilateral: not dull Tactile fremitus: Bilateral: normal Cardiovascular: regular rate and rhythm Gastrointestinal: normoactive bowel sounds Integumentary: normal Extremities: no cyanosis Musculoskeletal: no deformities Gait: normal gait, normal posture normal mental status, non-focal exam, CN II-XII normal, motor strength normal and symmetric mood appropriate, affect normal - Labs CBC & Chem 7: 08/24/18 07:00 08/24/18 07:00 Labs: Abnormal Lab Results - Last 24 Hours (Table) 08/23/18 08/24/18 08/24/18 Range/Units 20:33 06:21 07:00 WBC 14.4 H (3.8-10.6) k/uL Neutrophils # 13.5 H (1.3-7.7) k/uL Lymphocytes # 0.5 L (1.0-4.8) k/uL Sodium (137-145) mmol/L Potassium (3.5-5.1) mmol/L Chloride (98-107) mmol/L Glucose (74-99) mg/dL POC Glucose (mg/dL) 231 H 164 H (75-99) mg/dL 08/24/18 08/24/18 Range/Units 07:00 17:12 WBC (3.8-10.6) k/uL Neutrophils # (1.3-7.7) k/uL Lymphocytes # (1.0-4.8) k/uL Sodium 132 L (137-145) mmol/L Potassium 5.3 H (3.5-5.1) mmol/L Chloride 96 L (98-107) mmol/L Glucose 147 H (74-99) mg/dL POC Glucose (mg/dL) 171 H (75-99) mg/dL Assessment and Plan Assessment: Right upper lobe pneumonia Acute COPD exacerbation Tracheobronchitis Mood disorder depression Hoarseness Leukocytosis most likely related to steroids Hyponatremia Plan: Broad-spectrum antibiotics IV steroids Breathing treatments Continue home medications Observe sodium close Observe clinical course closely suspect shortness of breath is related to COPD exacerbation as it appears that patient is slowly settling down Time with Patient: Greater than 30
[2018-08-24 20:43] LABS: Glucose,Whole Blood 111 mg/dL (75-99)
[2018-08-24] MEDS: methylPREDNISolone SOD SUCCI 40 MG/ML 1 ML VIAL IV SCH (22:10)
[2018-08-25] MEDS: methylPREDNISolone SOD SUCCI 40 MG/ML 1 ML VIAL IV SCH ×3 (06:18→20:59)
[2018-08-25] MEDS: BENZOCAINE/MENTHOL LOZENG 1 EACH LOZENGE MUCOUS MEM PRN (06:18)
[2018-08-25 07:04] LABS: Glucose,Whole Blood 137 mg/dL (75-99)
[2018-08-25] MEDS: PANTOPRAZOLE 40 MG TABLET PO SCH (07:18)
[2018-08-25] MEDS: INSULIN ASPART (NovoLOG) 100 UNIT/ML VIAL SQ SCH ×4 (07:18→20:58)
[2018-08-25] MEDS: IPRATROPIUM-ALBUTEROL 3 ML NEB INHALATION SCH ×4 (07:45→20:28)
[2018-08-25] MEDS: SYMBICORT 160-4.5 MCG INHALER INHALATION SCH ×2 (07:45→20:28)
[2018-08-25] MEDS: DILTIAZEM CD 180 MG CAP.ER.24H PO SCH (09:19)
[2018-08-25] MEDS: ASPIRIN 325 MG TAB PO SCH (09:19)
[2018-08-25] MEDS: AZITHROMYCIN 500 MG TAB PO SCH (09:19)
[2018-08-25] MEDS: SERTRALINE 50 MG TAB PO SCH (09:19)
[2018-08-25] MEDS: NICOTINE 21MG/24HR PATCH TRANSDERM SCH (09:29)
[2018-08-25] MEDS: Acetaminophen-Codeine 300-30mg TAB PO PRN ×2 (09:29→16:58)
[2018-08-25 12:15] LABS: Glucose,Whole Blood 133 mg/dL (75-99)
--- NOTE | 2018-08-25 12:58 | PN ---
PROGRESS NOTE SUBJECTIVE: This is a 58-year-old white female, COPD exacerbation, keep her on IV antibiotics, IV steroids. Start PT, OT to see if she has desats while walking down the hallway. CARDIOVASCULAR: S1, S2. LUNGS: Scattered wheeze. HEMATOLOGY: Negative Homans. Discussed GERD and possible aspiration pneumonia. ASSESSMENT: 1. Chronic obstructive pulmonary disease. 2. Gastroesophageal reflux disease, reflux. 3. Tracheobronchitis. 4. Right upper lobe pneumonia. Continue with IV antibiotics, IV steroids, updraft treatments. Possible discharge home tomorrow. Check O2 saturation ambulating. MMODL / IJN: [id number] /
[2018-08-25 17:10] LABS: Glucose,Whole Blood 157 mg/dL (75-99)
[2018-08-25 20:57] LABS: Glucose,Whole Blood 153 mg/dL (75-99)
[2018-08-25] MEDS: QUEtiapine 100 MG TAB PO PRN (21:44)
[2018-08-25] MEDS ORDERED: methylPREDNISolone SOD SUCCI 40 MG/ML 1 ML VIAL IV SCH (22:00)
[2018-08-26] MEDS: methylPREDNISolone SOD SUCCI 40 MG/ML 1 ML VIAL IV SCH (06:16)
[2018-08-26] MEDS: PANTOPRAZOLE 40 MG TABLET PO SCH (06:16)
[2018-08-26 06:22] LABS: Glucose,Whole Blood 123 mg/dL (75-99)
[2018-08-26] MEDS: INSULIN ASPART (NovoLOG) 100 UNIT/ML VIAL SQ SCH ×2 (07:23→12:18)
[2018-08-26] MEDS: SYMBICORT 160-4.5 MCG INHALER INHALATION SCH (07:57)
[2018-08-26] MEDS: IPRATROPIUM-ALBUTEROL 3 ML NEB INHALATION SCH ×2 (07:57→12:54)
[2018-08-26 08:01] VITALS: BP 145/84; RESP 20; TEMP 97.7
[2018-08-26] MEDS: ASPIRIN 325 MG TAB PO SCH (09:25)
[2018-08-26] MEDS: DILTIAZEM CD 180 MG CAP.ER.24H PO SCH (09:25)
[2018-08-26] MEDS: SERTRALINE 50 MG TAB PO SCH (09:25)
[2018-08-26] MEDS: NICOTINE 21MG/24HR PATCH TRANSDERM SCH (09:25)
[2018-08-26] MEDS: AZITHROMYCIN 500 MG TAB PO SCH (09:26)
[2018-08-26] MEDS: Acetaminophen-Codeine 300-30mg TAB PO PRN (09:27)
[2018-08-26 12:34] LABS: Glucose,Whole Blood 124 mg/dL (75-99)
--- NOTE | 2018-08-26 12:51 | PN ---
PROGRESS NOTE 58-year-old white female, right upper lobe pneumonia, COPD exacerbation. Remains on Symbicort, Rocephin, Cardizem, Solu-Medrol IV, Protonix, Seroquel, Zoloft DuoNeb, Tylenol #3, Azithromycin. Today she is slowly improving. Her vital signs are 94 on room air, pulse is 80 to 83, respiratory rate 18-20, cardiovascular S1-S2. Lungs decreased breath sounds x4. Hematology negative Homans. Psych: Fair mood and affect. Patient greatly improving. Sent home on steroid taper and oral antibiotics to follow up as an outpatient possibly in the next 24 to 48 hours. MMODL / IJN: [id number] /
[2018-08-26 13:06] VITALS: PULSE 80
--- NOTE | 2018-08-26 19:07 | PN ---
PROGRESS NOTE SUBJECTIVE: Followup COPD exacerbation, acute hypoxemic respiratory distress right upper lobe pneumonia. MMODL / IJN: [id number] /
--- NOTE | 2018-08-26 19:13 | DS ---
DISCHARGE SUMMARY DATE OF ADMISSION: 08/25/2018. DATE OF DISCHARGE: 08/26/2018. DISCHARGE DIAGNOSES: 1. Chronic obstructive pulmonary disease exacerbation. 2. Right upper lobe pneumonia. 3. Nicotine addiction. 4. Bipolar disorder. 5. Anxiety. 6. Gastroesophageal reflux disease. HOME MEDICATIONS: 1. Medrol Dosepak, dispense 1, use as directed. 2. Levaquin 500 mg 1 daily for 7 days. 3. Albuterol updraft q.4 hours p.r.n. 4. Symbicort 160/4.5 2 puffs b.i.d. 5. Hwqz-hoq-wknlfah Prilosec 20 mg daily. 6. She takes Seroquel 300 mg at night. 7. Risperdal 2 mg b.i.d. CONDITION: Stable. PROGNOSIS: Guarded. Ambulate as tolerated. White female was admitted with COPD exacerbation, right upper lobe pneumonia and acute hypoxemic respiratory distress. Improved over the next 3-4 days with IV antibiotics, IV steroids, updraft treatments, switched to oral medications. She stabilized. CT scan of the chest was done which was reviewed with the patient. Nicotine cessation discussed with the patient. Follow up as outpatient. MMODL / IJN: [id number] /
== END 2018-08-26 14:05 | disposition home or self-care (01) | DRG 194 ==
LOC: EC 07:10 → 6PED 09:11 → OBSVTOIN 08-25 09:15
PROVIDERS: ADMIT Family Medicine; ATTEND Family Medicine
DX: J18.9 Pneumonia, unspecified organism (principal); E87.1 Hypo-osmolality and hyponatremia; J44.0 Chronic obstructive pulmonary disease with (acute) lower respiratory infection; J44.1 Chronic obstructive pulmonary disease with (acute) exacerbation; R06.03 Acute respiratory distress; R09.02 Hypoxemia; F17.210 Nicotine dependence, cigarettes, uncomplicated; F31.9 Bipolar disorder, unspecified; F41.9 Anxiety disorder, unspecified; K21.9 Gastro-esophageal reflux disease without esophagitis; T38.0X5A Adverse effect of glucocorticoids and synthetic analogues, initial encounter; Z79.51 Long term (current) use of inhaled steroids; Z79.82 Long term (current) use of aspirin; Z79.899 Other long term (current) drug therapy; Z80.1 Family history of malignant neoplasm of trachea, bronchus and lung; Z82.49 Family history of ischemic heart disease and other diseases of the circulatory system; G89.29 Other chronic pain; M54.5 Low back pain; D72.829 Elevated white blood cell count, unspecified; G43.909 Migraine, unspecified, not intractable, without status migrainosus
CPT/HCPCS: 36415; 71046; 71260; 80048; 80053; 83880; 84484; 85025; 85610; 85730; 93005; 94640; 94760; 96374; 96375; 99285

== ENCOUNTER 2019-03-20 08:56 | Emergency (ER) | payer OTHER ==
[2019-03-20 09:03] VITALS: TEMP 97.9
[2019-03-20] MEDS ORDERED: HYDROmorphone 1 MG/ML 1 ML SYRINGE IM STA (09:14)
--- NOTE | 2019-03-20 09:21 | ED ---
Fall HPI - General Chief Complaint: Fall Stated Complaint: fall/rib pain Time Seen by Provider: 03/20/19 09:04 Source: patient, RN notes reviewed Mode of arrival: ambulatory Limitations: no limitations - History of Present Illness Initial Comments: This a 59-year-old female presents emergency Department chief complaint of right-sided rib pain. Patient states she was looking for her to 0 this morning when she turned tripped over a footstool falling on the armrest of the couch. Patient states she hit right side of her ribs and had instant pain. She states it along the level of her breast. She states it hurts to cough, sneeze, move. Patient does not feel short of breath more than usual denies any abdominal pain no head injury no loss conscious. - Related Data Home Medications Medication Instructions Recorded Confirmed Diltiazem HCl [Cartia Xt] 180 mg PO DAILY 06/04/18 08/22/18 Albuterol Inhaler [Ventolin Hfa 1 - 2 puff INHALATION RT-Q6H PRN 08/22/18 08/22/18 Inhaler] Aspirin EC [Ecotrin] 325 mg PO DAILY 08/22/18 08/22/18 QUEtiapine FUMARATE [SEROquel] 300 mg PO HS PRN 08/22/18 08/22/18 Sertraline [Zoloft] 50 mg PO DAILY 08/22/18 08/22/18 Sertraline [Zoloft] 100 mg PO DAILY 08/22/18 08/22/18 risperiDONE [RisperDAL] 2 mg PO BID 08/22/18 08/22/18 Previous Rx's Medication Instructions Recorded Budesonide-Formot 160-4.5 Mcg 2 puff INHALATION RT-BID #1 unit 12/01/17 [Symbicort 160-4.5 Mcg Inhaler] Acetaminophen-Codeine 300-30mg 2 each PO Q6HR PRN tab 08/26/18 [Tylenol w/codeine #3] Hydrocodone/Acetaminophen [Castaner 1 tab PO Q6HR PRN #12 tab 03/20/19 5-325] Ibuprofen [Motrin] 600 mg PO Q8HR PRN #30 tab 03/20/19 Allergies Allergy/AdvReac Type Severity Reaction Status Date / Time No Known Allergies Allergy Verified 03/20/19 09:03 Review of Systems ROS Statement: Those systems with pertinent positive or pertinent negative responses have been documented in the HPI. ROS Other: All systems not noted in ROS Statement are negative. Past Medical History Past Medical History: Chest Pain / Angina, COPD, GERD/Reflux Additional Past Medical History / Comment(s): Chronic bronchitis, sinus tachycardia, chronic back pain, migraines, [place] bilaterally, bilateral tinnitis. History of Any Multi-Drug Resistant Organisms: None Reported Past Surgical History: Appendectomy, Tubal Ligation Past Anesthesia/Blood Transfusion Reactions: No Reported Reaction Past Psychological History: Anxiety, Depression Smoking Status: Current every day smoker - Past Family History Brother(s) Family Medical History: Coronary Artery Disease (CAD), Myocardial Infarction ([place]) Additional Family Medical History / Comment(s): Brother had [place] in his early 40s, pacemaker Sister(s) Family Medical History: Mitral Valve Prolapse (MVP) Father Additional Family Medical History / Comment(s): "post op mrsa infection- from complications of that" Mother Family Medical History: Cancer Additional Family Medical History / Comment(s): Lung cancer General Exam Limitations: no limitations General appearance: alert, in no apparent distress Head exam: Present: atraumatic, normocephalic, normal inspection Eye exam: Present: normal appearance, PERRL, EOMI. Absent: scleral icterus, conjunctival injection, periorbital swelling Neck exam: Present: normal inspection, full ROM. Absent: tenderness, meningismus, lymphadenopathy Respiratory exam: Present: normal lung sounds bilaterally, chest wall tenderness (Right mid anterior lateral). Absent: respiratory distress, wheezes, rales, rhonchi, stridor Cardiovascular Exam: Present: regular rate, normal rhythm, normal heart sounds. Absent: systolic murmur, diastolic murmur, rubs, gallop, clicks GI/Abdominal exam: Present: soft, normal bowel sounds. Absent: distended, tenderness, guarding, rebound, rigid Extremities exam: Present: normal inspection, full ROM, normal capillary refill. Absent: tenderness, pedal edema, joint swelling, calf tenderness Back exam: Present: full ROM. Absent: tenderness, paraspinal tenderness, vertebral tenderness Neurological exam: Present: alert, oriented X3, CN II-XII intact Course Vital Signs 03/20/19 09:02 Temperature 97.9 F Pulse Rate 85 Respiratory 16 Rate Blood Pressure 130/84 O2 Sat by Pulse 99 Oximetry Medical Decision Making - Medical Decision Making X-ray is negative for acute fracture no pneumothorax. Patient has rib contusion discussed possibility of a nondisplaced fracture identified. Patient we discharged with incentive spirometry, pain medication return parameters were discussed. Disposition Clinical Impression: Fall, Contusion of rib on right side Disposition: HOME SELF-CARE Condition: Stable Instructions (If sedation given, give patient instructions): Rib Contusion (ED) Additional Instructions: Please return to the Emergency Department if symptoms worsen or any other concerns. Prescriptions: Ibuprofen [Motrin] 600 mg PO Q8HR PRN #30 tab PRN Reason: Pain Hydrocodone/Acetaminophen [Castaner 5-325] 1 tab PO Q6HR PRN #12 tab PRN Reason: Pain Is patient prescribed a controlled substance at d/c from ED?: Yes When asked, does pt state using other controlled substances?: No If prescribed controlled substance>3 days was MAPS reviewed?: Prescribed <3 Days If opioid is for acute pain is fill amount 7 days or less?: Yes If Rx opioid, was Start Talking consent form obtained?: Yes Referrals: Clemente Gongora MD [Primary Care Provider] - 1-2 days Time of Disposition: 10:11
--- NOTE | 2019-03-20 09:47 | XR ---
Chest x-ray with right RIBS HISTORY: Trauma and pain Frontal view of the chest and 4 views of the right ribs submitted. Correlation to chest x-ray 08/23/19 19 There are prominent lung volume suggesting underlying COPD. Some minimal patchy densities present at the right costophrenic angle. No evident pneumothorax or pleural effusion. Cardiac mediastinal silhou ette, pulmonary vascularity and cody are stable. Suspect a slight spinal curvature. Bone mineralizati on is normal. Slight contour anomaly present at the third rib laterally may be normal variant. IMPRESSION: No displaced rib fracture is evident. There may be lung contusion or atelectasis. Bone sc an could be performed for increased sensitivity to assess for occult fracture as indicated.
[2019-03-20] MEDS ORDERED: HYDROcodone/APAP 5-325MG 1 EACH TAB PO STA (10:09)
[2019-03-20] MEDS ORDERED: ONDANSETRON ODT 4 MG TAB PO STA (10:09)
[2019-03-20 10:23] VITALS: BP 123/76; PULSE 84; RESP 18
== END 2019-03-20 10:20 | disposition home or self-care (01) ==
LOC: EC 08:56
DX: S20.211A Contusion of right front wall of thorax, initial encounter (principal); I20.9 Angina pectoris, unspecified; J44.9 Chronic obstructive pulmonary disease, unspecified; G89.29 Other chronic pain; H91.93 Unspecified hearing loss, bilateral; F32.9 Major depressive disorder, single episode, unspecified; F41.9 Anxiety disorder, unspecified; F17.200 Nicotine dependence, unspecified, uncomplicated; Z79.82 Long term (current) use of aspirin; Z79.899 Other long term (current) drug therapy; Z86.69 Personal history of other diseases of the nervous system and sense organs; W01.0XXA Fall on same level from slipping, tripping and stumbling without subsequent striking against object, initial encounter; Y93.89 Activity, other specified
CPT/HCPCS: 99283; 96372; 71101; J1170

== ENCOUNTER 2019-09-16 15:57 | Observation (INO) | payer OTHER ==
--- NOTE | 2019-09-16 16:09 | ED ---
Chest Pain HPI - General Chief Complaint: Chest Pain Stated Complaint: chest pain/arm numbness Time Seen by Provider: 09/16/19 16:07 Source: patient, RN notes reviewed, old records reviewed Mode of arrival: ambulatory Limitations: no limitations - History of Present Illness Initial Comments: This is a 59-year-old female DF for evaluation of chest pain patient has had chest pain in the past with no acute diagnosis. She has sever some mild asthma no travel history or sick contacts as of late. No fevers cough or congestion patient has been earlier and chest pain does currently persist MD Complaint: chest pain -: hour(s) Onset: during rest Pain Location: left chest, epigastric Pain Radiation: LUE Severity: moderate Severity scale (1-10): 6 Quality: tightness, heaviness Consistency: constant Improves With: nothing Worsens With: nothing Anginal Symptoms: diaphoresis, dyspnea Other Symptoms: palpitations Treatments Prior to Arrival: none - Related Data Home Medications Medication Instructions Recorded Confirmed Diltiazem HCl [Cartia Xt] 180 mg PO DAILY 06/04/18 09/16/19 Aspirin EC [Ecotrin] 325 mg PO DAILY 08/22/18 09/16/19 Sertraline [Zoloft] 50 mg PO BID 09/16/19 09/16/19 clonazePAM [KlonoPIN] 0.5 mg PO HS 09/16/19 09/16/19 diphenhydrAMINE HCL [Benadryl] 25 mg PO HS PRN 09/16/19 09/16/19 Previous Rx's Medication Instructions Recorded Budesonide-Formot 160-4.5 Mcg 2 puff INHALATION RT-BID #1 unit 12/01/17 [Symbicort 160-4.5 Mcg Inhaler] Metoprolol Tartrate [Lopressor] 25 mg PO BID 30 Days #60 tab 09/17/19 Nicotine 21Mg/24Hr Patch [Habitrol] 1 patch TRANSDERM DAILY patch 09/17/19 Nitroglycerin Sl Tabs [Nitrostat] 0.4 mg SUBLINGUAL Q5M PRN 180 Days 09/17/19 #100 tab Allergies Allergy/AdvReac Type Severity Reaction Status Date / Time No Known Allergies Allergy Verified 09/16/19 18:57 Review of Systems ROS Statement: Those systems with pertinent positive or pertinent negative responses have been documented in the HPI. ROS Other: All systems not noted in ROS Statement are negative. EKG Findings - EKG Comments: EKG Findings:: EKG is sinus rhythm 86, MS 1:30 QRS 92 QTC 449. Repeat EKG. No change in morphology,. sinus rhythm of 75. MS 132 QRS 94 QTC 439 Past Medical History Past Medical History: Chest Pain / Angina, COPD, GERD/Reflux Additional Past Medical History / Comment(s): Chronic bronchitis, sinus tachycardia, chronic back pain, migraines, [place] bilaterally, bilateral tinnitis. History of Any Multi-Drug Resistant Organisms: None Reported Past Surgical History: Appendectomy, Tubal Ligation Past Anesthesia/Blood Transfusion Reactions: No Reported Reaction Past Psychological History: Anxiety, Depression Past Alcohol Use History: None Reported Past Drug Use History: None Reported - Past Family History Brother(s) Family Medical History: Coronary Artery Disease (CAD), Myocardial Infarction ([place]) Additional Family Medical History / Comment(s): Brother had [place] in his early 40s, pacemaker Sister(s) Family Medical History: Mitral Valve Prolapse (MVP) Father Additional Family Medical History / Comment(s): "post op mrsa infection- from complications of that" Mother Family Medical History: Cancer Additional Family Medical History / Comment(s): Lung cancer General Exam Limitations: no limitations General appearance: alert, in no apparent distress Head exam: Present: atraumatic, normocephalic, normal inspection Eye exam: Present: normal appearance, PERRL, EOMI. Absent: scleral icterus, conjunctival injection, periorbital swelling ENT exam: Present: normal exam, mucous membranes moist Neck exam: Present: normal inspection. Absent: tenderness, meningismus, lymphadenopathy Respiratory exam: Present: normal lung sounds bilaterally. Absent: respiratory distress, wheezes, rales, rhonchi, stridor Cardiovascular Exam: Present: regular rate, normal rhythm, normal heart sounds. Absent: systolic murmur, diastolic murmur, rubs, gallop, clicks GI/Abdominal exam: Present: soft, normal bowel sounds. Absent: distended, tenderness, guarding, rebound, rigid Extremities exam: Present: normal inspection, full ROM, normal capillary refill. Absent: tenderness, pedal edema, joint swelling, calf tenderness Back exam: Present: normal inspection Neurological exam: Present: alert, oriented X3, CN II-XII intact Psychiatric exam: Present: normal affect, normal mood Skin exam: Present: warm, dry, intact, normal color. Absent: rash Course Vital Signs 09/16/19 09/16/19 09/16/19 16:02 19:00 21:06 Temperature 98.3 F Pulse Rate 87 75 78 Respiratory 18 16 16 Rate Blood Pressure 140/89 135/79 109/61 O2 Sat by Pulse 98 94 L Oximetry - Reevaluation(s) Reevaluation #1: medical record is reviewed patient still w chest pain informed patient of results, questions answered and ok for admission Patient with some shortness of breath as well currently Chest Pain MDM - MDM 59 female DF for evaluation of chest pain patient be admitted for chest pain observation cardiac observation telemetry Critical Care Time Critical Care Time: Yes Total Critical Care Time: 31 Disposition Clinical Impression: Chest pain Disposition: ADMITTED IP TO THIS HOSP Condition: Fair Is patient prescribed a controlled substance at d/c from ED?: No
[2019-09-16] MEDS ORDERED: SODIUM CHLORIDE 0.9% 1,000 ML IV STA (16:30)
[2019-09-16] MEDS ORDERED: MORPHINE SULFATE 4 MG/ML SYRINGE IV STA (16:30)
[2019-09-16] MEDS ORDERED: ONDANSETRON 4 MG/2 ML VIAL IVP STA (16:39)
[2019-09-16 16:42] LABS: Basophils # (A) 0.1 k/uL (0-0.2); Basophils % (A) 1 %; Eosinophils # (A) 0.1 k/uL (0-0.7); Eosinophils % (A) 2 %; HCT 50.2 % (34.0-46.0); HGB 16.3 gm/dL (11.4-16.0); Lymphocytes # (A) 2.9 k/uL (1.0-4.8); Lymphocytes % (A) 39 %; MCH 32.7 pg (25.0-35.0); MCHC 32.4 g/dL (31.0-37.0); Mean Platelet Volume 7.4; Monocytes # (A) 0.6 k/uL (0-1.0); Monocytes % (A) 8 %; Neutrophils # (A) 3.5 k/uL (1.3-7.7); Neutrophils % (A) 48 %; Platelet Count 350 k/uL (150-450); RBC 4.97 m/uL (3.80-5.40); RDW 12.6 % (11.5-15.5); WBC 7.4 k/uL (3.8-10.6)
[2019-09-16 16:52] LABS: ALT 18 U/L (4-34); AST 27 U/L (14-36); African American GFR (CKD) >90 (>60 ml/min/1.73 sqM); Albumin 4.1 g/dL (3.5-5.0); Alkaline Phosphatase 72 U/L (38-126); Anion Gap 8 mmol/L; Blood Urea Nitrogen 14 mg/dL (7-17); Calcium 9.2 mg/dL (8.4-10.2); Carbon Dioxide 25 mmol/L (22-30); Chloride 102 mmol/L (98-107); Glucose 96 mg/dL (74-99); Lipase 151 U/L (23-300); Magnesium 2.1 mg/dL (1.6-2.3); Non-African American GFR(CKD) >90 (>60 ml/min/1.73 sqM); Potassium 4.4 mmol/L (3.5-5.1); Sodium 135 mmol/L (137-145); Total Bilirubin 0.3 mg/dL (0.2-1.3); Total Protein 6.3 g/dL (6.3-8.2)
--- NOTE | 2019-09-16 17:00 | XR ---
EXAMINATION TYPE: XR chest 2V DATE OF EXAM: 09/16/2019 COMPARISON: 03/20/2019 HISTORY: Fall. Pain. TECHNIQUE: 2 views FINDINGS: Heart and mediastinum are normal. Lungs are clear of consolidation. There is some linear de nsity in the anterior right upper lobe. There is no pleural effusion. There are chest leads. There is no heart failure. Bony thorax appears intact. IMPRESSION: There is some linear density right upper lobe anterior segment consistent with scarring a nd atelectasis that is increased compared to old exam. There is clearing of the pleural reaction late ral right lung base compared to old exam.
[2019-09-16 17:06] LABS: D-Dimer 0.41 mg/L FEU (<0.60); INR 0.9 (<1.2); Prothrombin Time 9.4 sec (9.0-12.0)
[2019-09-16 17:15] LABS: Partial Thromboplastin Time 21.9 sec (22.0-30.0)
[2019-09-16] MEDS ORDERED: HEPARIN SODIUM,PORCINE 5,000 UNIT/ML 1 ML VIAL IV PRN (18:36)
[2019-09-16] MEDS ORDERED: ASPIRIN 81 MG PO STA (18:36)
[2019-09-16] MEDS ORDERED: HEPARIN SODIUM,PORCINE 5,000 UNIT/ML 1 ML VIAL IV ONE (18:36)
[2019-09-16] MEDS ORDERED: NITROGLYCERIN SL TABS 0.4 MG TAB SUBLINGUAL PRN (18:36)
[2019-09-16] MEDS ORDERED: MORPHINE SULFATE 4 MG/ML SYRINGE IV PRN (18:36)
[2019-09-16] MEDS ORDERED: HEPARIN SOD,PORK IN 0.45% NACL 25,000 UNIT in 0.45% NACL 1 250ML.BAG IV SCH (18:45)
[2019-09-16] MEDS: METOPROLOL TARTRATE 25 MG TAB PO SCH (21:13)
[2019-09-16] MEDS: SERTRALINE 50 MG TAB PO SCH (22:52)
[2019-09-16] MEDS: clonazePAM 0.5 MG TAB PO SCH (22:52)
[2019-09-17] MEDS: MORPHINE SULFATE 2 MG/ML SYRINGE IVP PRN ×4 (01:26→20:44)
[2019-09-17] MEDS: METOPROLOL TARTRATE 25 MG TAB PO SCH ×2 (08:01→20:44)
[2019-09-17] MEDS: SERTRALINE 50 MG TAB PO SCH ×2 (08:02→20:44)
[2019-09-17] MEDS: DILTIAZEM CD 180 MG CAP.ER.24H PO SCH (08:02)
[2019-09-17] MEDS: ASPIRIN 325 MG TAB PO SCH (08:02)
[2019-09-17 08:03] LABS: Mean Platelet Volume 7.1; Platelet Count 292 k/uL (150-450)
[2019-09-17 08:42] LABS: Cholesterol 203 mg/dL (<200); HDL Cholesterol 72 mg/dL (40-60); LDL Cholesterol,Calculated 108 mg/dL (0-99); Triglycerides 117 mg/dL (<150)
--- NOTE | 2019-09-17 08:44 | P.CRDCN ---
History of Present Illness Consult date: 09/17/19 Chief complaint: Chest pain History of present illness: This is a very pleasant 59-year-old female patient with a past medical history significant for smoking as well as significant family history of coronary artery disease presented to the hospital complaining of chest discomfort. She was in her usual state of health until yesterday when she was resting at home and started experiencing discomfort in the mid of the chest, as a pressure on the chest, with radiation to the left arm. The chest discomfort lasted about 10-15 minutes. No associated symptoms of sweating, shortness of breath, dizziness, heart racing or syncope. Because the chest discomfort was recurrent she decided to come to the emergency department. The EKG showed sinus rhythm without any significant ST or T-wave abnormalities. The cardiac enzymes were checked and ca me in to be unremarkable to the chest x-ray did not show any acute abnormalities. When the patient was seen this morning she was experiencing chest discomfort about 4/10 in intensity. In 2018 she underwent a stress test and that came in to be unremarkable. She underwent an echocardiogram also in 2018 and that revealed normal left ventricular systolic function without any significant valvular abnormalities. I had a long discussion with the patient regarding the next step and in view of the ongoing chest discomfort as well as her significant history of smoking as well as significant family history of coronary artery disease involving her father I advised the patient to undergo a coronary angiogram for definitive diagnosis. The procedure in details including the benefits, risks, as well as alternative were discussed with the patient and the patient is in agreement as well as a full understanding. Past Medical History Past Medical History: Chest Pain / Angina, COPD, GERD/Reflux Additional Past Medical History / Comment(s): Chronic bronchitis, sinus tachycardia, chronic back pain, migraines, [place] bilaterally, bilateral tinnitis. History of Any Multi-Drug Resistant Organisms: None Reported Past Surgical History: Appendectomy, Tubal Ligation Additional Past Surgical History / Comment(s): pt states heart cath back in 2004 with no stents Past Anesthesia/Blood Transfusion Reactions: No Reported Reaction Past Psychological History: Anxiety, Depression Additional Psychological History / Comment(s): Pt resides with her spouse. She is independent. She has a nebulizer. Smoking Status: Current every day smoker Past Alcohol Use History: None Reported Additional Past Alcohol Use History / Comment(s): started smoking 1976 was smoking 3 ppd now down to 1-2 ppd Past Drug Use History: None Reported - Past Family History Brother(s) Family Medical History: Coronary Artery Disease (CAD), Myocardial Infarction ([place]) Additional Family Medical History / Comment(s): Brother had [place] in his early 40s, pacemaker Sister(s) Family Medical History: Mitral Valve Prolapse (MVP) Father Additional Family Medical History / Comment(s): "post op mrsa infection- from complications of that" Mother Family Medical History: Cancer, Diabetes Mellitus Additional Family Medical History / Comment(s): Lung cancer Medications and Allergies Home Medications Medication Instructions Recorded Confirmed Type Budesonide-Formot 160-4.5 Mcg 2 puff INHALATION RT-BID #1 unit 12/01/17 09/16/19 Rx [Symbicort 160-4.5 Mcg Inhaler] Diltiazem HCl [Cartia Xt] 180 mg PO DAILY 06/04/18 09/16/19 History Aspirin EC [Ecotrin] 325 mg PO DAILY 08/22/18 09/16/19 History Sertraline [Zoloft] 50 mg PO BID 09/16/19 09/16/19 History clonazePAM [KlonoPIN] 0.5 mg PO HS 09/16/19 09/16/19 History diphenhydrAMINE HCL [Benadryl] 25 mg PO HS PRN 09/16/19 09/16/19 History Allergies Allergy/AdvReac Type Severity Reaction Status Date / Time No Known Allergies Allergy Verified 09/16/19 18:57 Physical Exam Vitals: Vital Signs Temp Pulse Pulse Resp BP BP Pulse Ox 09/17/19 03:00 98.0 F 82 16 103/50 91 L 09/16/19 22:12 81 18 09/16/19 21:47 98.0 F 81 19 131/60 96 09/16/19 21:06 78 16 109/61 09/16/19 19:00 75 16 135/79 94 L 09/16/19 16:02 98.3 F 87 18 140/89 98 Intake and Output 09/16/19 09/17/19 09/17/19 22:59 06:59 14:59 Intake Total 506.23 Balance 506.23 Intake: IV 160 0.9% sodium Chloride @ 160 20ml/hr Intake, IV Titration 46.23 Amount Heparin Sod,Pork in 0.45% 46.23 NaCl 25,000 unit In 0.45 % NaCl 1 250ml.bag @ 12 UNITS/KG/HR 7.076 mls/hr IV .Q24H [facility] Rx#: [id number] Oral 300 Other: Voiding Method Toilet Toilet # Voids 1 Weight 62.2 kg 62.2 kg - Constitutional General appearance: no acute distress - Respiratory Respiratory: bilateral: CTA - Cardiovascular Rhythm: regular Heart sounds: normal: S1, S2 Abnormal Heart Sounds: systolic murmur Results 09/17/19 07:51 09/16/19 16:31 Cardiac Enzymes 09/16/19 09/16/19 09/16/19 Range/Units 16:31 16:31 19:33 AST 27 (14-36) U/L Troponin I <0.012 <0.012 (0.000-0.034) ng/mL 09/17/19 Range/Units 00:38 AST (14-36) U/L Troponin I <0.012 (0.000-0.034) ng/mL Coagulation 09/16/19 09/17/19 09/17/19 Range/Units 16:31 00:38 07:51 PT 9.4 (9.0-12.0) sec APTT 21.9 L 39.9 H 40.6 H (22.0-30.0) sec CBC 09/16/19 09/17/19 Range/Units 16:31 07:51 WBC 7.4 (3.8-10.6) k/uL RBC 4.97 (3.80-5.40) m/uL Hgb 16.3 H (11.4-16.0) gm/dL Hct 50.2 H (34.0-46.0) % Plt Count 350 292 (150-450) k/uL Comprehensive Metabolic Panel 09/16/19 Range/Units 16:31 Sodium 135 L (137-145) mmol/L Potassium 4.4 (3.5-5.1) mmol/L Chloride 102 (98-107) mmol/L Carbon Dioxide 25 (22-30) mmol/L BUN 14 (7-17) mg/dL Creatinine 0.66 (0.52-1.04) mg/dL Glucose 96 (74-99) mg/dL Calcium 9.2 (8.4-10.2) mg/dL AST 27 (14-36) U/L ALT 18 (4-34) U/L Alkaline Phosphatase 72 (38-126) U/L Total Protein 6.3 (6.3-8.2) g/dL Albumin 4.1 (3.5-5.0) g/dL Current Medications Generic Name Dose Route Start Last Admin Trade Name Freq PRN Reason Stop Dose Admin Aspirin 325 mg 09/17/19 09:00 09/17/19 08:02 Aspirin PO 325 mg DAILY MAGALYS Administration Budesonide/Formoterol Fumarate 2 puff 09/17/19 08:00 Symbicort 160-4.5 Mcg Inhaler INHALATION RT-BID MAGAYLS Clonazepam 0.5 mg 09/16/19 22:30 09/16/19 22:52 Klonopin PO 0.5 mg HS MAGALYS Administration Diltiazem HCl 180 mg 09/17/19 09:00 09/17/19 08:02 Cardizem Cd PO 180 mg DAILY MAGALYS Administration Heparin Sodium (Porcine) 0 unit 09/16/19 18:36 Heparin IV Q6HR PRN Low PTT Protocol Heparin Sodium/Sodium Chloride 250 mls @ 7.076 mls/hr 09/16/19 18:45 09/17/19 01:21 25,000 unit/ Sodium Chloride IV 14 units/kg/hr .Q24H MAGALYS 8.255 mls/hr Titration Protocol 12 UNITS/KG/HR Metoprolol Tartrate 25 mg 09/16/19 21:00 09/17/19 08:01 Lopressor PO 25 mg BID MAGALYS Administration Morphine Sulfate 4 mg 09/16/19 18:36 09/16/19 18:52 Morphine Sulfate (Inj) IV 4 mg ONCE PRN Administration Chest Pain Morphine Sulfate 4 mg 09/16/19 18:36 09/17/19 08:01 Morphine Sulfate (Inj) IVP 4 mg Q4H PRN Administration Chest Pain Nitroglycerin 0.4 mg 09/16/19 18:36 Nitrostat SUBLINGUAL Q5M PRN Chest Pain Sertraline HCl 50 mg 09/16/19 22:30 09/17/19 08:02 Zoloft PO 50 mg BID MAGALYS Administration Intake and Output 09/16/19 09/17/19 09/17/19 22:59 06:59 14:59 Intake Total 506.23 Balance 506.23 Intake: IV 160 0.9% sodium Chloride @ 160 20ml/hr Intake, IV Titration 46.23 Amount Heparin Sod,Pork in 0.45% 46.23 NaCl 25,000 unit In 0.45 % NaCl 1 250ml.bag @ 12 UNITS/KG/HR 7.076 mls/hr IV .Q24H MAGAL[facility] Rx#: [id number] Oral 300 Other: Voiding Method Toilet Toilet # Voids 1 Weight 62.2 kg 62.2 kg 09/17/19 07:51 09/16/19 16:31 Assessment and Plan Assessment: Assessment #1 chest discomfort concerning for angina #2 significant history of smoking #3 significant family history of coronary artery disease Plan #1 I recommended proceeding with coronary angiogram #2 she underwent an echocardiogram will follow-up #3 follow-up on the patient
[2019-09-17] MEDS: SYMBICORT 160-4.5 MCG INHALER INHALATION SCH ×2 (08:48→19:36)
--- NOTE | 2019-09-17 09:42 | ECHOF ---
Referral Reason:cp MEASUREMENTS -------- HEIGHT: 172.7 cm WEIGHT: 62.1 kg BP: 103/50 RVIDd: 3.4 cm (< 3.3) IVSd: 1.0 cm (0.6 - 1.1) LVIDd: 4.2 cm (3.9 - 5.3) LVPWd: 1.2 cm (0.6 - 1.1) IVSs: 1.3 cm LVIDs: 3.3 cm LVPWs: 1.3 cm LA Diam: 3.1 cm (2.7 - 3.8) LAESV Index (A-L): 19.78 ml/m Ao Diam: 2.6 cm (2.0 - 3.7) AV Cusp: 1.7 cm (1.5 - 2.6) MV EXCURSION: 20.477 mm (> 18.000) MV EF SLOPE: 74 mm/s (70 - 150) EPSS: 0.3 cm MV E Pasquale: 0.71 m/s MV DecT: 188 ms MV A Pasquale: 0.79 m/s MV E/A Ratio: 0.90 RAP: 5.00 mmHg RVSP: 34.27 mmHg FINDINGS -------- Sinus rhythm. This was a technically good study. LV size, wall thickness and systolic function are normal, with an EF greater than 55%. The left abimbola tricular size is normal. The right ventricle is normal in size. The left atrial size is normal. Normal LA size by volume 22+/-6 ml/m2. The right atrial size is normal. The aortic valve is trileaflet, and appears structurally normal. No aortic stenosis or regurgitation. Mild mitral regurgitation is present. Mild tricuspid regurgitation present. Right ventricular systolic pressure is normal at < 35 mmHg. There is no pulmonic regurgitation present. The aortic root size is normal. There is no pericardial effusion. CONCLUSIONS -------- 1. Sinus rhythm. 2. LV size, wall thickness and systolic function are normal, with an EF greater than 55%. 3. The left ventricular size is normal. 4. The right ventricle is normal in size. 5. The left atrial size is normal. 6. Normal LA size by volume 22+/-6 ml/m2. 7. The right atrial size is normal. 8. Mild mitral regurgitation is present. 9. Mild tricuspid regurgitation present. 10. Right ventricular systolic pressure is normal at < 35 mmHg. PLANT GUIDE: Halima Carroll RDCS
[2019-09-17] MEDS ORDERED: IV FLUID CONTINUATION 400 ML IV ONE (12:00)
[2019-09-17] MEDS ORDERED: MIDAZOLAM 2 MG/2 ML VIAL IV ONE (12:26)
[2019-09-17] MEDS ORDERED: LIDOCAINE 1% INJ 10MG/ML (20 ML MDV) SQ ONE (12:27)
[2019-09-17] MEDS: VERAPAMIL SYRINGE (5 MG/10 ML) INTRAARTER ONE ×2 (12:28→12:36)
[2019-09-17] MEDS ORDERED: HEPARIN SODIUM 1,000 UN/ML (10ML VL) IV ONE (12:29)
[2019-09-17] MEDS ORDERED: HYDROmorphone 1 MG/ML 1 ML SYRINGE IVP ONE (12:32)
[2019-09-17] MEDS ORDERED: IOPAMIDOL-370 100ML BTL INJ ONE (12:35)
[2019-09-17] MEDS ORDERED: RX INFO: IV CONTRAST WAS GIVEN 1 EACH MISC MISCELLANE PRN (12:41)
[2019-09-17] MEDS ORDERED: SODIUM CHLORIDE 0.9% 1,000 ML IV SCH (12:45)
[2019-09-17] MEDS: NICOTINE 21MG/24HR PATCH TRANSDERM SCH (17:10)
[2019-09-17] MEDS: ONDANSETRON 4 MG/2 ML VIAL IVP PRN (17:58)
--- NOTE | 2019-09-17 18:08 | CT ---
EXAMINATION TYPE: CT chest wo con DATE OF EXAM: 09/17/2019 COMPARISON: 08/22/2018 HISTORY: Chest pain CT DLP: 234.3 mGycm Automated exposure control for dose reduction was used. Images obtained from the thoracic inlet to the diaphragm without contrast. There is minimal subsegmental atelectasis at the lung bases. There is no pleural effusion. Heart size is normal. There is no pericardial effusion. There is coronary artery calcification. There is mild a theromatous change in the thoracic aorta. There is no aneurysm. There are no hilar masses. There is n o mediastinal adenopathy. There is a reticular 4 cm infiltrate in the anterior right upper lobe. There is some coarse linear de nsity anterior segment right upper lobe consistent with infiltrate and atelectasis. There is no evide nce of a pulmonary mass. Thoracic spine is intact sternum is intact. The ribs appear intact. Upper ab dominal soft tissues appear intact. IMPRESSION: There is some coarse linear interstitial infiltrate and atelectasis anterior right upper lobe not sig nificantly different than old exam and consistent with scarring. No suspicious pulmonary mass. Athero sclerotic vascular disease.
--- NOTE | 2019-09-17 18:31 | CC ---
CARDIAC CATHETERIZATION REPORT DATE OF SERVICE: 09/17/2019 PERFORMING PHYSICIAN: Jose Guadalupe Johns MD. PROCEDURES PERFORMED: 1. Selective right and left coronary angiogram. 2. Left heart catheterization. INDICATION: This is a very pleasant 59-year-old female patient with significant history of smoking and significant family history of coronary artery disease who was admitted to the hospital with chest discomfort and continues to have ongoing chest discomfort. She is known to have coronary artery disease based on a CT scan showing coronary calcifications. Because of that, heart catheterization was advised. APPROACH: Right radial artery. COMPLICATIONS: None. LEVEL OF SEDATION: Moderate, with sedation length of 13 minutes. PROCEDURE DESCRIPTION: After obtaining informed consent, the patient was brought to the cardiac culture media laboratory assistant. The right radial artery was cannulated using micropuncture technique. The micropuncture wire passed easily. Then I placed a 6-Burmese sheath at the right radial artery. After that I gave the patient 2 mg of verapamil IA and 10,000 units of heparin IV. Selective right and left coronary angiograms were performed using JR 3.5 and JL3.5 catheters. Left heart catheterization was performed using a 5-Burmese pigtail catheter. The procedure was completed without any complication. SELECTIVE CORONARY ANGIOGRAM: 1. Right coronary artery is a medium-caliber vessel and it is a nondominant vessel. The RCA is angiographically normal. 2. The left main is angiographically normal. It bifurcates into LCX and LAD. 3. The LCX is a large-caliber vessel and it is a dominant vessel. The LCX is angiographically normal. In the mid portion it gives rise to a large OM branch which appeared to be normal and distally bifurcates into PDA and PLV branches; both appeared to be angiographically normal. 4. The LAD is a large-caliber vessel. The LAD has mild disease in the mid portion by the bifurcation of a large diagonal branch. The LAD after that appeared to be angiographically normal and proximally is angiographically normal. 5. HEMODYNAMICS: The LVEDP was 12 mmHg without significant gradient across aortic valve. CONCLUSION: 1. Mild nonobstructive coronary artery disease. 2. Normal left ventricular end-diastolic pressure. POST-PROCEDURE MANAGEMENT: 1. Medical treatment. 2. Follow up with the patient. MMODL / IJN: [id number] /
[2019-09-17] MEDS: clonazePAM 0.5 MG TAB PO SCH (20:44)
--- NOTE | 2019-09-17 22:36 | HP ---
HISTORY AND PHYSICAL This patient is a 59-year-old white female who comes in with atypical chest pain radiating down her left arm. She had pressure in her chest radiating down her left arm that lasted 10 to 15 minutes. No nausea, shortness of breath, dizziness or syncope. History of smoking. EKG showed no ST-T changes. Cardiac enzymes were unremarkable. Chest x-ray did not show anything. It was 4/5 in intensity. She was sent to the cardiac laborer ammunition assembly, which showed no blockages at this time. CT of the chest shows some old scarring; no infiltrate, no mass. PAST MEDICAL HISTORY: GERD, angina, COPD, chest pain, tinnitus, chronic back pain, migraines. History of anxiety and depression. SURGERIES: Appendectomy, tubal ligation, heart catheterization in 2004. No stents. FAMILY HISTORY: Brother with coronary artery disease, myocardial infarction. Sister with mitral valve prolapse. Father post MRSA infection, from complications. Mother with diabetes mellitus, lung cancer. HOME MEDICATIONS: See list. REVIEW OF SYSTEMS: Fourteen-point review of systems as mentioned above. ALLERGIES: NEGATIVE. PHYSICAL EXAMINATION: VITAL SIGNS: Temperature 98, pulse 80 to 82, respiratory 16 to 18, blood pressure 109 to 140 over 60s to 70s. CARDIOVASCULAR: S1, S2. LUNGS: Mild wheeze. No rales, rhonchi, wheezing. HEMATOLOGY: Negative Homans. PSYCH: Fair mood and affect. NEUROLOGIC: Alert and orient x3. OPHTHALMOLOGICAL: Pupils equal, round, reactive. Labs are reviewed. ASSESSMENT: 1. Atypical chest pain. 2. History of smoking. 3. Family history of heart disease. Risk factor modification. Discharge home if cardiac catheterization is negative and CT of the chest shows no blood clots or pneumonia. MMODL / IJN: [id number] /
[2019-09-18 06:26] LABS: Mean Platelet Volume 7.9; Platelet Count 288 k/uL (150-450)
[2019-09-18] MEDS: MORPHINE SULFATE 2 MG/ML SYRINGE IVP PRN (06:51)
[2019-09-18] MEDS: ONDANSETRON 4 MG/2 ML VIAL IVP PRN (06:53)
[2019-09-18 08:05] VITALS: BP 113/62; PULSE 83; RESP 18; TEMP 98
[2019-09-18] MEDS: SYMBICORT 160-4.5 MCG INHALER INHALATION SCH (08:27)
[2019-09-18] MEDS: SERTRALINE 50 MG TAB PO SCH (08:29)
[2019-09-18] MEDS: METOPROLOL TARTRATE 25 MG TAB PO SCH (08:29)
[2019-09-18] MEDS: DILTIAZEM CD 180 MG CAP.ER.24H PO SCH (08:29)
[2019-09-18] MEDS: ASPIRIN 325 MG TAB PO SCH (08:29)
[2019-09-18] MEDS: NICOTINE 21MG/24HR PATCH TRANSDERM SCH (08:30)
--- NOTE | 2019-09-18 10:38 | P.PN ---
Subjective Progress Note Date: 09/18/19 Principal diagnosis: Chest pain This is a 59-year-old female patient with history of smoking who was admitted to the hospital with a chest discomfort concerning for angina. I recommended proceeding with heart catheterization. Heart catheterization revealed mild nonobstructive coronary artery disease. She was seen today, 09/28/2019 patient is asymptomatic from a cardiovascular standpoint of view. The right radial site is soft with mild bruises. From the cardiac vascular standpoint of view, the patient can be discharged home Objective - Vital Signs Vital signs: Vital Signs Temp 98.0 F 09/18/19 08:00 Pulse 83 09/18/19 09:00 Resp 18 09/18/19 09:00 BP 113/62 09/18/19 08:00 Pulse Ox 92 L 09/18/19 08:00 Intake & Output 09/17/19 09/18/19 09/18/19 18:59 06:59 18:59 Intake Total 1491.681 200 Balance 1491.681 200 Weight 61.2 kg Intake: IV 100 Intake, IV Titration 71.681 Amount Heparin Sod,Pork in 0.45% 71.681 NaCl 25,000 unit In 0.45 % NaCl 1 250ml.bag @ 12 UNITS/KG/HR 7.076 mls/hr IV .Q24H MAGALYS Rx#: [id number] Oral 1320 200 Other: Voiding Method Toilet Toilet Toilet # Voids 1 5 1 - Constitutional General appearance: Present: no acute distress - Respiratory Respiratory: bilateral: CTA - Cardiovascular Rhythm: regular Heart sounds: normal: S1, S2 - Labs CBC & Chem 7: 09/18/19 05:46 09/16/19 16:31 Assessment and Plan Assessment: Assessment #1 chest discomfort concerning for angina. The heart catheterization showed mild CAD #2 significant history of smoking #3 significant family history of coronary artery disease Plan #1 continue the current medical regimen #2 the patient can be discharged home
== END 2019-09-18 11:20 | disposition home or self-care (01) ==
LOC: EC 15:57 → 3NCARDOBS 18:36 → 3SCARD 21:18
PROVIDERS: ADMIT Family Medicine; ATTEND Family Medicine
DX: R07.89 Other chest pain (principal); R20.0 Anesthesia of skin; R00.0 Tachycardia, unspecified; J44.9 Chronic obstructive pulmonary disease, unspecified; I10 Essential (primary) hypertension; E78.00 Pure hypercholesterolemia, unspecified; K21.9 Gastro-esophageal reflux disease without esophagitis; F41.9 Anxiety disorder, unspecified; F32.9 Major depressive disorder, single episode, unspecified; G89.29 Other chronic pain; M54.9 Dorsalgia, unspecified; G43.909 Migraine, unspecified, not intractable, without status migrainosus; H91.93 Unspecified hearing loss, bilateral; H93.13 Tinnitus, bilateral; I25.110 Atherosclerotic heart disease of native coronary artery with unstable angina pectoris; Z90.49 Acquired absence of other specified parts of digestive tract; F17.210 Nicotine dependence, cigarettes, uncomplicated; Z79.51 Long term (current) use of inhaled steroids; Z79.899 Other long term (current) drug therapy; Z79.82 Long term (current) use of aspirin; Z82.49 Family history of ischemic heart disease and other diseases of the circulatory system; Z80.1 Family history of malignant neoplasm of trachea, bronchus and lung; Z83.1 Family history of other infectious and parasitic diseases; Z83.3 Family history of diabetes mellitus; Z11.59 Encounter for screening for other viral diseases
CPT/HCPCS: 96376 ×2; 96366 ×3; 93005 ×2; 96361; 96365; 96375; 99285; 36415; 94640 ×3; 93306; 93458; 85379; 83880; 80061; 80053; 83690; 83735; 84484 ×2; 85025; 85049 ×2; 85610; 85730 ×2; 71046; 71250; G0378 ×3; C1894; U0003; S4990; J2250; J2270 ×3; J1644 ×4; J2405 ×3; J2001; J1170; Q9967

== ENCOUNTER 2020-05-04 09:16 | Emergency (ER) | payer OTHER ==
[2020-05-04] MEDS ORDERED: methylPREDNISolone SOD SUCCI 125 MG/2 ML VIAL IV STA (09:56)
[2020-05-04] MEDS ORDERED: SODIUM CHLORIDE 0.9% 500 ML 500 ML IV STA (09:56)
[2020-05-04] MEDS ORDERED: diphenhydrAMINE 50 MG/ML 1 ML VIAL IVP STA (09:57)
[2020-05-04] MEDS ORDERED: METOCLOPRAMIDE 5 MG/ML 2 ML VIAL IVP STA (09:57)
[2020-05-04] MEDS ORDERED: KETOROLAC 15 MG/ML 1 ML VIAL IVP STA (09:57)
--- NOTE | 2020-05-04 10:02 | ED ---
SOB HPI - General Chief Complaint: Shortness of Breath Stated Complaint: sob Time Seen by Provider: 05/04/20 09:31 Source: patient, family Mode of arrival: ambulatory Limitations: no limitations - History of Present Illness Initial Comments: 60-year-old female patient with past medical history significant for COPD, current smoker presents to the emergency department today for evaluation of shortness of breath and headache. Patient states symptoms started yesterday and progressively worsened throughout the night and into today. States the headache started this morning. States this started as a mild ache and gradually worsened. States she does have a history of migraine headaches does feel similar. Denies any blurred or double vision. Denies numbness, tingling, weakness to extremities. States she is having left-sided chest pain that radiat es through to her back. States she has been coughing denies sputum production. Denies any fever or chills. Denies sore throat or nasal congestion. Denies any known exposure to COVID-19. Patient denies any recent rash, abdominal pain, nausea, vomiting, diarrhea, constipation, back pain, numbness, tingling, dizziness, weakness, hematuria, dysuria, urinary urgency, urinary frequency, or any other complaints. - Related Data Home Medications Medication Instructions Recorded Confirmed Sertraline [Zoloft] 50 mg PO BID 09/16/19 05/04/20 clonazePAM [KlonoPIN] 0.5 mg PO HS 09/16/19 05/04/20 diphenhydrAMINE HCL [Benadryl] 25 mg PO HS PRN 09/16/19 05/04/20 Propranolol HCl 30 mg PO BID 05/04/20 05/04/20 Varenicline [Chantix Continuing 1 mg PO BID 05/04/20 05/04/20 Pack] hydroCHLOROthiazide [Hydrodiuril] 50 mg PO DAILY 05/04/20 05/04/20 Previous Rx's Medication Instructions Recorded Budesonide-Formot 160-4.5 Mcg 2 puff INHALATION RT-BID #1 unit 12/01/17 [Symbicort 160-4.5 Mcg Inhaler] predniSONE 50 mg PO DAILY #5 tablet 05/04/20 Allergies Allergy/AdvReac Type Severity Reaction Status Date / Time No Known Allergies Allergy Verified 05/04/20 11:50 Review of Systems ROS Statement: Those systems with pertinent positive or pertinent negative responses have been documented in the HPI. ROS Other: All systems not noted in ROS Statement are negative. Past Medical History Past Medical History: Chest Pain / Angina, COPD, GERD/Reflux Additional Past Medical History / Comment(s): Chronic bronchitis, sinus tachycardia, chronic back pain, migraines, [place] bilaterally, bilateral tinnitis. History of Any Multi-Drug Resistant Organisms: None Reported Past Surgical History: Appendectomy, Tubal Ligation Additional Past Surgical History / Comment(s): pt states heart cath back in 2004 with no stents Past Anesthesia/Blood Transfusion Reactions: No Reported Reaction Past Psychological History: Anxiety, Depression Smoking Status: Current every day smoker Past Alcohol Use History: None Reported Past Drug Use History: None Reported - Past Family History Brother(s) Family Medical History: Coronary Artery Disease (CAD), Myocardial Infarction (OR) Additional Family Medical History / Comment(s): Brother had OR in his early 40s, pacemaker Sister(s) Family Medical History: Mitral Valve Prolapse (MVP) Father Additional Family Medical History / Comment(s): "post op mrsa infection- from complications of that" Mother Family Medical History: Cancer Additional Family Medical History / Comment(s): Lung cancer General Exam Limitations: no limitations General appearance: alert, in no apparent distress, other (Physical well- developed, well-nourished adult female patient in no acute distress. Vital signs upon presentation are temperature 97.3F, pulse 82, respirations 20, blood pressure 151/76, pulse ox 98% on room air.) Eye exam: Present: normal appearance, PERRL, EOMI. Absent: scleral icterus, conjunctival injection, periorbital swelling ENT exam: Present: normal exam, normal oropharynx, mucous membranes moist Respiratory exam: Present: normal lung sounds bilaterally, respiratory distress (mild), other (Tachypnea). Absent: wheezes, rales, rhonchi, stridor Cardiovascular Exam: Present: regular rate, normal rhythm, normal heart sounds. Absent: systolic murmur, diastolic murmur, rubs, gallop, clicks GI/Abdominal exam: Present: soft, normal bowel sounds. Absent: distended, tenderness, guarding, rebound, rigid Course Vital Signs 05/04/20 05/04/20 05/04/20 09:19 10:13 10:25 Temperature 97.3 F L Pulse Rate 82 75 Respiratory 20 18 18 Rate Blood Pressure 151/76 142/87 O2 Sat by Pulse 98 95 Oximetry 05/04/20 05/04/20 05/04/20 11:00 11:42 11:47 Temperature Pulse Rate 76 78 Respiratory 18 Rate Blood Pressure O2 Sat by Pulse 97 Oximetry 05/04/20 12:44 Temperature 97.8 F Pulse Rate 80 Respiratory 16 Rate Blood Pressure 138/86 O2 Sat by Pulse 98 Oximetry Medical Decision Making - Medical Decision Making 60-year-old female patient presents to the emergency department today for evaluation of shortness of breath. Physical examination did reveal clear lung sounds. Vital signs within normal range. Labs reviewed and were unremarkable. D-dimer is negative. Sodium is 126 though this is not new for the patient. COVID-19 was negative. EKG was unremarkable. I did did give Solu-Medrol IV and given a breathing treatment. Upon reevaluation patient states she is feeling much better. She does have a history of COPD suicidal discharged home with a prescription for prednisone. Instructed to follow-up with her primary care physician for recheck in 1-2 days. Return parameters were discussed in detail. She verbalizes understanding and agrees with this plan. Case discussed with my attending Dr. Mcleod. - Lab Data Result diagrams: 05/04/20 10:11 05/04/20 10:11 Lab Results 05/04/20 05/04/20 05/04/20 Range/Units 10:11 10:11 10:11 WBC 9.9 (3.8-10.6) k/uL RBC 4.88 (3.80-5.40) m/uL Hgb 15.9 (11.4-16.0) gm/dL Hct 47.5 H (34.0-46.0) % MCV 97.3 (80.0-100.0) fL MCH 32.5 (25.0-35.0) pg MCHC 33.4 (31.0-37.0) g/dL RDW 12.6 (11.5-15.5) % Plt Count 371 (150-450) k/uL MPV 7.0 Neutrophils % 67 % Lymphocytes % 23 % Monocytes % 5 % Eosinophils % 3 % Basophils % 1 % Neutrophils # 6.6 (1.3-7.7) k/uL Lymphocytes # 2.3 (1.0-4.8) k/uL Monocytes # 0.5 (0-1.0) k/uL Eosinophils # 0.3 (0-0.7) k/uL Basophils # 0.1 (0-0.2) k/uL PT 9.7 (9.0-12.0) sec INR 0.9 (<1.2) APTT 22.7 (22.0-30.0) sec D-Dimer 0.52 (<0.60) mg/L FEU Sodium 126 L (137-145) mmol/L Potassium 4.7 (3.5-5.1) mmol/L Chloride 92 L (98-107) mmol/L Carbon Dioxide 29 (22-30) mmol/L Anion Gap 5 mmol/L BUN 13 (7-17) mg/dL Creatinine 0.54 (0.52-1.04) mg/dL Est GFR (CKD-EPI)AfAm >90 (>60 ml/min/1.73 sqM) Est GFR (CKD-EPI)NonAf >90 (>60 ml/min/1.73 sqM) Glucose 104 H (74-99) mg/dL Plasma Lactic Acid Dio (0.7-2.0) mmol/L Calcium 9.6 (8.4-10.2) mg/dL Total Bilirubin 0.6 (0.2-1.3) mg/dL AST 27 (14-36) U/L ALT 15 (4-34) U/L Alkaline Phosphatase 95 (38-126) U/L Troponin I (0.000-0.034) ng/mL Total Protein 7.0 (6.3-8.2) g/dL Albumin 4.5 (3.5-5.0) g/dL Coronavirus (PCR) (Not Detectd) 05/04/20 05/04/20 05/04/20 Range/Units 10:11 10:11 10:24 WBC (3.8-10.6) k/uL RBC (3.80-5.40) m/uL Hgb (11.4-16.0) gm/dL Hct (34.0-46.0) % MCV (80.0-100.0) fL MCH (25.0-35.0) pg MCHC (31.0-37.0) g/dL RDW (11.5-15.5) % Plt Count (150-450) k/uL MPV Neutrophils % % Lymphocytes % % Monocytes % % Eosinophils % % Basophils % % Neutrophils # (1.3-7.7) k/uL Lymphocytes # (1.0-4.8) k/uL Monocytes # (0-1.0) k/uL Eosinophils # (0-0.7) k/uL Basophils # (0-0.2) k/uL PT (9.0-12.0) sec INR (<1.2) APTT (22.0-30.0) sec D-Dimer (<0.60) mg/L FEU Sodium (137-145) mmol/L Potassium (3.5-5.1) mmol/L Chloride (98-107) mmol/L Carbon Dioxide (22-30) mmol/L Anion Gap mmol/L BUN (7-17) mg/dL Creatinine (0.52-1.04) mg/dL Est GFR (CKD-EPI)AfAm (>60 ml/min/1.73 sqM) Est GFR (CKD-EPI)NonAf (>60 ml/min/1.73 sqM) Glucose (74-99) mg/dL Plasma Lactic Acid Dio 1.1 (0.7-2.0) mmol/L Calcium (8.4-10.2) mg/dL Total Bilirubin (0.2-1.3) mg/dL AST (14-36) U/L ALT (4-34) U/L Alkaline Phosphatase (38-126) U/L Troponin I <0.012 (0.000-0.034) ng/mL Total Protein (6.3-8.2) g/dL Albumin (3.5-5.0) g/dL Coronavirus (PCR) Not Detected (Not Detectd) - EKG Data -: EKG Interpreted by Me EKG Comments: EKG obtained at 0942 shows sinus rhythm with premature super ventricular complexes. Ventricular rate is 79, ND interval 136, QRS duration 96, QT 376, QTc 431. No evidence of ST elevation or depression. - Radiology Data Radiology results: report reviewed, image reviewed One view x-ray of the chest is obtained. Report is reviewed in its entirety. Impression by Dr. Sellers shows no acute process. Disposition Clinical Impression: COPD exacerbation Disposition: HOME SELF-CARE Condition: Good Instructions (If sedation given, give patient instructions): COPD (Chronic Obstructive Pulmonary Disease) (ED) Additional Instructions: Take medications as directed. 2 breathing treatments every 4 hours. Follow-up with her primary care physician for recheck in 1-2 days. Return to the emergency department for any new, worsening, or concerning symptoms. Prescriptions: predniSONE 50 mg PO DAILY #5 tablet Is patient prescribed a controlled substance at d/c from ED?: No Referrals: Clemente Gongora MD [Primary Care Provider] - 1-2 days Time of Disposition: 12:30
[2020-05-04 10:25] LABS: Basophils # (A) 0.1 k/uL (0-0.2); Basophils % (A) 1 %; Eosinophils # (A) 0.3 k/uL (0-0.7); Eosinophils % (A) 3 %; HCT 47.5 % (34.0-46.0); HGB 15.9 gm/dL (11.4-16.0); Lymphocytes # (A) 2.3 k/uL (1.0-4.8); Lymphocytes % (A) 23 %; MCH 32.5 pg (25.0-35.0); MCHC 33.4 g/dL (31.0-37.0); MCV 97.3 fL (80.0-100.0); Monocytes # (A) 0.5 k/uL (0-1.0); Monocytes % (A) 5 %; Neutrophils # (A) 6.6 k/uL (1.3-7.7); Neutrophils % (A) 67 %; Platelet Count 371 k/uL (150-450); RBC 4.88 m/uL (3.80-5.40); RDW 12.6 % (11.5-15.5); WBC 9.9 k/uL (3.8-10.6)
[2020-05-04 10:38] LABS: ALT 15 U/L (4-34); African American GFR (CKD) >90 (>60 ml/min/1.73 sqM); Albumin 4.5 g/dL (3.5-5.0); Anion Gap 5 mmol/L; Blood Urea Nitrogen 13 mg/dL (7-17); Calcium 9.6 mg/dL (8.4-10.2); Carbon Dioxide 29 mmol/L (22-30); Chloride 92 mmol/L (98-107); Glucose 104 mg/dL (74-99); Non-African American GFR(CKD) >90 (>60 ml/min/1.73 sqM); Sodium 126 mmol/L (137-145); Total Bilirubin 0.6 mg/dL (0.2-1.3)
--- NOTE | 2020-05-04 10:40 | XR ---
EXAMINATION TYPE: XR chest 1V portable DATE OF EXAM: 05/04/2020 COMPARISON: Chest x-ray 09/16/2019 HISTORY: Shortness of breath TECHNIQUE: Single frontal view of the chest is obtained. FINDINGS: Prominent lung volumes with apical lucency greater on the left suggests underlying emphyse ma. Some mild strand-like densities are again noted within the lungs, there is no evident pneumothora x or pleural effusion. Cardiac mediastinal silhouette is stable. There are overlying leads. IMPRESSION: No acute process.
[2020-05-04 10:49] LABS: AST 27 U/L (14-36); Potassium 4.7 mmol/L (3.5-5.1)
[2020-05-04 10:50] LABS: Alkaline Phosphatase 95 U/L (38-126)
[2020-05-04 11:02] LABS: D-Dimer 0.52 mg/L FEU (<0.60); INR 0.9 (<1.2); Partial Thromboplastin Time 22.7 sec (22.0-30.0); Prothrombin Time 9.7 sec (9.0-12.0)
[2020-05-04] MEDS ORDERED: IPRATROPIUM-ALBUTEROL 3 ML NEB INHALATION STA (11:29)
[2020-05-04] MEDS ORDERED: ALBUTEROL NEB (CONC) 2.5 MG/0.5 ML INHALATION STA (11:29)
[2020-05-04 12:45] VITALS: BP 138/86; PULSE 80; RESP 16; TEMP 97.8
== END 2020-05-04 12:44 | disposition home or self-care (01) ==
LOC: EC 09:16
DX: J44.1 Chronic obstructive pulmonary disease with (acute) exacerbation (principal); F41.9 Anxiety disorder, unspecified; F32.9 Major depressive disorder, single episode, unspecified; F17.200 Nicotine dependence, unspecified, uncomplicated; Z20.822 Contact with and (suspected) exposure to COVID-19; Z79.899 Other long term (current) drug therapy
CPT/HCPCS: 36415; 94640; 93005; 85379; 80053; 83605; 84484; 85025; 85610; 85730; 87635; 71045; 99285; 96374; 96375 ×3; 96361; J1200; J2765; J2930; J1885

== ENCOUNTER 2020-08-31 07:02 | Observation (INO) | payer OTHER ==
[2020-08-31] MEDS ORDERED: HYDROmorphone 1 MG/ML 1 ML SYRINGE IVP STA ×2 (07:29→08:21)
--- NOTE | 2020-08-31 07:32 | ED ---
General Adult HPI - General Chief complaint: Back Pain/Injury Stated complaint: Back Pain - [facility] Time Seen by Provider: 08/31/20 07:18 Source: patient, family, RN notes reviewed Mode of arrival: ambulatory Limitations: no limitations - History of Present Illness Initial comments: Patient is a pleasant 60-year-old female presenting to the emergency Department with thoracic back pain. Onset was yesterday while lifting a large fats of coffee. Patient estimates somewhere near 20 pounds however is unclear on this. Patient had discomfort while lifting them and suddenly got worse while lifting them. Patient has had significant discomfort since that time. Patient denies dyspnea however states it hurts to breathe. Patient also has increased discomfo rt with movement. Discomfort is mid thoracic area with radiation to bilateral ribs. No calf pain or leg swelling. - Related Data Home Medications Medication Instructions Recorded Confirmed Sertraline [Zoloft] 50 mg PO BID 09/16/19 05/04/20 clonazePAM [KlonoPIN] 0.5 mg PO HS 09/16/19 05/04/20 diphenhydrAMINE HCL [Benadryl] 25 mg PO HS PRN 09/16/19 05/04/20 Propranolol HCl 30 mg PO BID 05/04/20 05/04/20 Varenicline [Chantix Continuing 1 mg PO BID 05/04/20 05/04/20 Pack] hydroCHLOROthiazide [Hydrodiuril] 50 mg PO DAILY 05/04/20 05/04/20 Previous Rx's Medication Instructions Recorded Budesonide-Formot 160-4.5 Mcg 2 puff INHALATION RT-BID #1 unit 12/01/17 [Symbicort 160-4.5 Mcg Inhaler] predniSONE 50 mg PO DAILY #5 tablet 05/04/20 Allergies Allergy/AdvReac Type Severity Reaction Status Date / Time No Known Allergies Allergy Verified 08/31/20 07:09 Review of Systems ROS Statement: Those systems with pertinent positive or pertinent negative responses have been documented in the HPI. ROS Other: All systems not noted in ROS Statement are negative. Constitutional: Denies: fever Eyes: Denies: eye pain ENT: Denies: ear pain Respiratory: Denies: cough Cardiovascular: Reports: as per HPI Endocrine: Denies: fatigue Gastrointestinal: Denies: abdominal pain Genitourinary: Denies: dysuria Musculoskeletal: Reports: as per HPI, back pain Skin: Denies: rash Neurological: Denies: weakness Past Medical History Past Medical History: Chest Pain / Angina, COPD, GERD/Reflux Additional Past Medical History / Comment(s): Chronic bronchitis, sinus tachycardia, chronic back pain, migraines, [place] bilaterally, bilateral tinnitis. History of Any Multi-Drug Resistant Organisms: None Reported Past Surgical History: Appendectomy, Tubal Ligation Additional Past Surgical History / Comment(s): pt states heart cath back in 2004 with no stents Past Anesthesia/Blood Transfusion Reactions: No Reported Reaction Past Psychological History: Anxiety, Depression Smoking Status: Current every day smoker Past Alcohol Use History: None Reported Past Drug Use History: None Reported - Past Family History Brother(s) Family Medical History: Coronary Artery Disease (CAD), Myocardial Infarction (HI) Additional Family Medical History / Comment(s): Brother had HI in his early 40s, pacemaker Sister(s) Family Medical History: Mitral Valve Prolapse (MVP) Father Additional Family Medical History / Comment(s): "post op mrsa infection- f rom complications of that" Mother Family Medical History: Cancer Additional Family Medical History / Comment(s): Lung cancer General Exam Limitations: no limitations General appearance: alert Head exam: Present: normocephalic Eye exam: Present: normal appearance Neck exam: Present: normal inspection Respiratory exam: Present: normal lung sounds bilaterally. Absent: chest wall tenderness Cardiovascular Exam: Present: regular rate, normal rhythm Expanded Peripheral pulses: 2+: Radial (R), Radial (L), Dorsalis Pedis (R), Dorsalis Pedis (L) GI/Abdominal exam: Present: soft. Absent: tenderness Extremities exam: Present: normal inspection. Absent: pedal edema, calf ten derness Back exam: Present: tenderness (Mild tenderness bilateral thoracic region approximately T5 through T10 and posterior ribs.) Neurological exam: Present: alert. Absent: motor sensory deficit Psychiatric exam: Present: normal affect, normal mood Skin exam: Present: normal color Course Vital Signs 08/31/20 08/31/20 07:04 08:13 Temperature 98.2 F Pulse Rate 87 79 Respiratory 26 H 16 Rate Blood Pressure 157/100 135/87 O2 Sat by Pulse 98 98 Oximetry EKG Findings - EKG Comments: EKG Findings:: Sinus rhythm with a rate of 83. DC 134. QRS 92. QT 36. QTc 45 6. Normal axis. Normal QRS. No acute ST change. Medical Decision Making - Medical Decision Making Patient reevaluated and still uncomfortable following 2 doses of Dilaudid. Case discussed with practitioner Faith with Dr. Hassan who states patient will need of back brace and can be admitted if needed. - Lab Data Result diagrams: 08/31/20 07:31 08/31/20 07:31 Lab Results 08/31/20 08/31/20 08/31/20 Range/Units 07:31 07:31 07:31 WBC 9.0 (3.8-10.6) k/uL RBC 4.69 (3.80-5.40) m/uL Hgb 15.8 (11.4-16.0) gm/dL Hct 45.7 (34.0-46.0) % MCV 97.5 (80.0-100.0) fL MCH 33.7 (25.0-35.0) pg MCHC 34.6 (31.0-37.0) g/dL RDW 12.3 (11.5-15.5) % Plt Count 369 (150-450) k/uL MPV 6.6 Neutrophils % 66 % Lymphocytes % 22 % Monocytes % 7 % Eosinophils % 2 % Basophils % 1 % Neutrophils # 5.9 (1.3-7.7) k/uL Lymphocytes # 2.0 (1.0-4.8) k/uL Monocytes # 0.6 (0-1.0) k/uL Eosinophils # 0.2 (0-0.7) k/uL Basophils # 0.1 (0-0.2) k/uL PT 9.8 (9.0-12.0) sec INR 0.9 (<1.2) APTT 22.5 (22.0-30.0) sec D-Dimer 0.41 (<0.60) mg/L FEU Sodium 127 L (137-145) mmol/L Potassium 4.9 (3.5-5.1) mmol/L Chloride 92 L (98-107) mmol/L Carbon Dioxide 25 (22-30) mmol/L Anion Gap 10 mmol/L BUN 5 L (7-17) mg/dL Creatinine 0.47 L (0.52-1.04) mg/dL Est GFR (CKD-EPI)AfAm >90 (>60 ml/min/1.73 sqM) Est GFR (CKD-EPI)NonAf >90 (>60 ml/min/1.73 sqM) Glucose 96 (74-99) mg/dL Calcium 10.3 H (8.4-10.2) mg/dL Magnesium 1.9 (1.6-2.3) mg/dL Total Bilirubin 0.9 (0.2-1.3) mg/dL AST 31 (14-36) U/L ALT 17 (4-34) U/L Alkaline Phosphatase 106 (38-126) U/L Troponin I (0.000-0.034) ng/mL Total Protein 7.4 (6.3-8.2) g/dL Albumin 4.9 (3.5-5.0) g/dL 08/31/20 Range/Units 07:31 WBC (3.8-10.6) k/uL RBC (3.80-5.40) m/uL Hgb (11.4-16.0) gm/dL Hct (34.0-46.0) % MCV (80.0-100.0) fL MCH (25.0-35.0) pg MCHC (31.0-37.0) g/dL RDW (11.5-15.5) % Plt Count (150-450) k/uL MPV Neutrophils % % Lymphocytes % % Monocytes % % Eosinophils % % Basophils % % Neutrophils # (1.3-7.7) k/uL Lymphocytes # (1.0-4.8) k/uL Monocytes # (0-1.0) k/uL Eosinophils # (0-0.7) k/uL Basophils # (0-0.2) k/uL PT (9.0-12.0) sec INR (<1.2) APTT (22.0-30.0) sec D-Dimer (<0.60) mg/L FEU Sodium (137-145) mmol/L Potassium (3.5-5.1) mmol/L Chloride (98-107) mmol/L Carbon Dioxide (22-30) mmol/L Anion Gap mmol/L BUN (7-17) mg/dL Creatinine (0.52-1.04) mg/dL Est GFR (CKD-EPI)AfAm (>60 ml/min/1.73 sqM) Est GFR (CKD-EPI)NonAf (>60 ml/min/1.73 sqM) Glucose (74-99) mg/dL Calcium (8.4-10.2) mg/dL Magnesium (1.6-2.3) mg/dL Total Bilirubin (0.2-1.3) mg/dL AST (14-36) U/L ALT (4-34) U/L Alkaline Phosphatase (38-126) U/L Troponin I <0.012 (0.000-0.034) ng/mL Total Protein (6.3-8.2) g/dL Albumin (3.5-5.0) g/dL - Radiology Data Radiology results: image reviewed (Chest x-ray shows no acute process. Thoracic spine x-ray shows some mild wedging mid thoracic. This appears to be near T7 to me.) Disposition Clinical Impression: Thoracic compression fracture Disposition: ADMITTED IP TO THIS HOSP Is patient prescribed a controlled substance at d/c from ED?: No Referrals: Clemente Gongora MD [Primary Care Provider] - 1-2 days Decision Time: 08:56
[2020-08-31 07:42] LABS: Basophils # (A) 0.1 k/uL (0-0.2); Basophils % (A) 1 %; Eosinophils # (A) 0.2 k/uL (0-0.7); Eosinophils % (A) 2 %; HCT 45.7 % (34.0-46.0); HGB 15.8 gm/dL (11.4-16.0); Lymphocytes % (A) 22 %; MCH 33.7 pg (25.0-35.0); MCHC 34.6 g/dL (31.0-37.0); MCV 97.5 fL (80.0-100.0); Mean Platelet Volume 6.6; Monocytes # (A) 0.6 k/uL (0-1.0); Monocytes % (A) 7 %; Neutrophils # (A) 5.9 k/uL (1.3-7.7); Neutrophils % (A) 66 %; Platelet Count 369 k/uL (150-450); RBC 4.69 m/uL (3.80-5.40); RDW 12.3 % (11.5-15.5)
[2020-08-31 07:55] LABS: ALT 17 U/L (4-34); African American GFR (CKD) >90 (>60 ml/min/1.73 sqM); Albumin 4.9 g/dL (3.5-5.0); Anion Gap 10 mmol/L; Blood Urea Nitrogen 5 mg/dL (7-17); Calcium 10.3 mg/dL (8.4-10.2); Carbon Dioxide 25 mmol/L (22-30); Chloride 92 mmol/L (98-107); Glucose 96 mg/dL (74-99); Non-African American GFR(CKD) >90 (>60 ml/min/1.73 sqM); Sodium 127 mmol/L (137-145); Total Bilirubin 0.9 mg/dL (0.2-1.3); Total Protein 7.4 g/dL (6.3-8.2)
[2020-08-31 07:56] LABS: INR 0.9 (<1.2); Partial Thromboplastin Time 22.5 sec (22.0-30.0); Prothrombin Time 9.8 sec (9.0-12.0)
[2020-08-31 07:57] LABS: AST 31 U/L (14-36); Alkaline Phosphatase 106 U/L (38-126); Magnesium 1.9 mg/dL (1.6-2.3); Potassium 4.9 mmol/L (3.5-5.1)
--- NOTE | 2020-08-31 08:11 | XR ---
Thoracic spine HISTORY: Pain 3 views of the thoracic spine Lucency in the upper lobes may be due to underlying emphysema. There is a slight spinal curvature. Th oracic vertebral bodies show preserved height with exception of mid thoracic vertebral body which cielo ws some mild wedging, no evident retropulsion. Bone mineralization is reduced. There is multilevel sp ondylosis. Disc spaces relatively preserved. IMPRESSION: Suspect some mild anterior wedging midthoracic vertebral body, bone scan may be of benefi t. No evident subluxation.
--- NOTE | 2020-08-31 08:13 | XR ---
EXAMINATION TYPE: XR chest 2V DATE OF EXAM: 08/31/2020 COMPARISON: 05/04/2020 HISTORY: Chest pain TECHNIQUE: Frontal and lateral views of the chest are obtained. FINDINGS: There is no focal air space opacity, pleural effusion, or pneumothorax seen. The cardiac silhouette size is within normal limits. The osseous structures are intact. IMPRESSION: No acute cardiopulmonary process.
[2020-08-31] MEDS ORDERED: HYDROmorphone 0.5 MG/0.5 ML SYRINGE IVP PRN (08:56)
[2020-08-31] MEDS ORDERED: NALOXONE 0.4 MG/ML 1 ML VIAL IV PRN (08:56)
[2020-08-31] MEDS ORDERED: ORPHENADRINE 30 MG/ML 2 ML VIAL IVP PRN (08:57)
[2020-08-31] MEDS ORDERED: CYCLOBENZAPRINE 10 MG TAB PO PRN (12:06)
[2020-08-31] MEDS ORDERED: HYDROcodone/APAP 5-325MG 1 EACH TAB PO PRN (12:06)
[2020-08-31] MEDS ORDERED: IBUPROFEN 200 MG TAB PO PRN (12:27)
[2020-08-31] MEDS ORDERED: IPRATROPIUM-ALBUTEROL 3 ML NEB INHALATION PRN (12:27)
--- NOTE | 2020-08-31 12:32 | P.HPOR ---
History of Present Illness H&P Date: 08/31/20 Chief Complaint: Thoracic back pain and radiculopathy Patient is a pleasant 60-year-old female who is seen and examined at bedside in the emergency department room #2 for further evaluation of her thoracic spine. She states yesterday while at work she was lifting heavy containers of coffee weighing approximately 20 pounds when she began to feel significant pain in her thoracic spine. She states she has pain in her mid thoracic spine and wraps around her ribs bilaterally. She states she works at the [employer]. She felt her symptoms would subside but her symptoms have not had any significant improvement. She presented to the emergency department for further evaluation. She does have pain with bending and twisting of her spine. She currently denies any lumbar pain. She denies any lower extremity weakness or radiculopathy bilaterally. X-ray imaging was taken in the emergency Department which show evidence of a thoracic compression fracture deformity at approximately T7. She was admitted to our service for further treatment and evaluation. A TLSO brace has been ordered by the ER physician and provided to case management. Patient's other medical diagnoses include COPD, history of chest pain/angina, anxiety, depression, and current every day smoker. She states she does follow with her primary care provider Dr. Clemente Gongora. She is not currently having any exacerbation of her COPD. She denies any previous injury to her thoracic spine. Past Medical History Past Medical History: Chest Pain / Angina, COPD, GERD/Reflux Additional Past Medical History / Comment(s): Chronic bronchitis, sinus tachycardia, chronic back pain, migraines, [place] bilaterally, bilateral tinnitis. History of Any Multi-Drug Resistant Organisms: None Reported Past Surgical History: Appendectomy, Tubal Ligation Additional Past Surgical History / Comment(s): pt states heart cath back in 2004 with no stents Past Anesthesia/Blood Transfusion Reactions: No Reported Reaction Past Psychological History: Anxiety, Depression Smoking Status: Current every day smoker Past Alcohol Use History: None Reported Past Drug Use History: None Reported - Past Family History Brother(s) Family Medical History: Coronary Artery Disease (CAD), Myocardial Infarction (NM) Additional Family Medical History / Comment(s): Brother had NM in his early 40s, pacemaker Sister(s) Family Medical History: Mitral Valve Prolapse (MVP) Father Additional Family Medical History / Comment(s): "post op mrsa infection- from complications of that" Mother Family Medical History: Cancer Additional Family Medical History / Comment(s): Lung cancer Medications and Allergies Home Medications Medication Instructions Recorded Confirmed Type Budesonide-Formot 160-4.5 Mcg 2 puff INHALATION RT-BID #1 unit 12/01/17 08/31/20 Rx [Symbicort 160-4.5 Mcg Inhaler] Sertraline [Zoloft] 50 mg PO BID 09/16/19 08/31/20 History clonazePAM [KlonoPIN] 0.5 mg PO DAILY 09/16/19 08/31/20 History hydroCHLOROthiazide [Hydrodiuril] 50 mg PO DAILY 05/04/20 08/31/20 History Aspirin EC [Ecotrin] 325 mg PO DAILY 08/31/20 08/31/20 History Ibuprofen [Motrin Ib] 200 mg PO Q8H PRN 08/31/20 08/31/20 History Ipratropium-Albuterol Nebulize 3 ml INHALATION RT-TID PRN 08/31/20 08/31/20 History [Duoneb 0.5 mg-3 mg/3 ml Soln] Propranolol HCl 20 mg PO BID 08/31/20 08/31/20 History Allergies Allergy/AdvReac Type Severity Reaction Status Date / Time dust Allergy Dyspnea Uncoded 08/31/20 09:22 Physical Examination Physical exam: Patient is awake, alert, and oriented 3 Vital signs stable Adequate chest excursion with deep inspiration and expiration Abdomen soft nontender Examination of thoracic and lumbar spine reveals skin is intact with no abrasions, lacerations, or bruises; no erythema, purulence or signs of infection Some pain with palpation and percussion over the mid thoracic spine and over the thoracic paraspinal muscles at the mid thoracic spine No pain on palpation over the lumbar spine Dorsiflexion, plantarflexion, and extensor hallucis longus positive sustained bilaterally Lower extremity strength 5/5 bilaterally Straight leg test negative bilateral lower extremities No signs or symptoms of DVT; no calf pain No pain with internal and external rotation of the hips bilaterally Neurovascularly intact Results Pertinent studies: X-ray of the thoracic spine taken on 08/31/2020: Evidence of mild anterior wedging of a vertebral body at the mid thoracic spine; mid thoracic degenerative disc disease; multilevel spondylosis - Labs Labs: Abnormal Lab Results - Last 24 Hours (Table) 08/31/20 Range/Units 07:31 Sodium 127 L (137-145) mmol/L Chloride 92 L (98-107) mmol/L BUN 5 L (7-17) mg/dL Creatinine 0.47 L (0.52-1.04) mg/dL Calcium 10.3 H (8.4-10.2) mg/dL H & H 08/31/20 Range/Units 07:31 Hgb 15.8 (11.4-16.0) gm/dL Hct 45.7 (34.0-46.0) % Coagulation 08/31/20 Range/Units 07:31 INR 0.9 (<1.2) Result Diagrams: 08/31/20 07:31 08/31/20 07:31 Assessment and Plan Assessment: Assessment: Acute thoracic back pain after lifting at work Thoracic radiculopathy Acute mid thoracic compression fracture deformity Thoracic degenerative disc disease Thoracic spondylosis COPD Current every day smoker History of chest pain/angina Anxiety Depression (1) Thoracic radiculopathy Current Visit: Yes Status: Acute Code(s): M54.14 - RADICULOPATHY, THORACIC REGION SNOMED Code(s): 72365497 (2) Acute thoracic back pain Current Visit: Yes Status: Acute Code(s): M54.6 - PAIN IN THORACIC SPINE SNOMED Code(s): 051460768 (3) Current every day smoker Current Visit: Yes Status: Acute Code(s): F17.200 - NICOTINE DEPENDENCE, UNSPECIFIED, UNCOMPLICATED SNOMED Code(s): 289707593 (4) Anxiety Current Visit: Yes Status: Acute Code(s): F41.9 - ANXIETY DISORDER, UNSPECIFIED SNOMED Code(s): 68156741 (5) Depression Current Visit: Yes Status: Acute Code(s): F32.9 - MAJOR DEPRESSIVE DISORDER, SINGLE EPISODE, UNSPECIFIED SNOMED Code(s): 26702144 (6) History of angina Current Visit: Yes Status: Acute Code(s): Z86.79 - PERSONAL HISTORY OF OTHER DISEASES OF THE CIRCULATORY SYSTEM SNOMED Code(s): 439365634 (7) Thoracic degenerative disc disease Current Visit: Yes Status: Acute Code(s): M51.34 - OTHER INTERVERTEBRAL DISC DEGENERATION, THORACIC REGION SNOMED Code(s): 73255517 (8) Thoracic spondylosis Current Visit: Yes Status: Acute Code(s): M47.814 - SPONDYLOSIS W/O MYELOPATHY OR RADICULOPATHY, THORACIC REGION SNOMED Code(s): 615439388 (9) Thoracic compression fracture Current Visit: Yes Status: Acute Code(s): S22.000A - WEDGE COMPRESSION FRACTURE OF UNSP THORACIC VERTEBRA, INIT SNOMED Code(s): 253257407 (10) COPD (chronic obstructive pulmonary disease) Current Visit: No Status: Acute Code(s): J44.9 - CHRONIC OBSTRUCTIVE PULM ONARY DISEASE, UNSPECIFIED SNOMED Code(s): 97386093 Plan: Plan: 1. After physical examination of the patient, further discussion with the patient, and review of imaging, we will currently planned to obtain further imaging regards to her thoracic spine. She was lifting heavy coffee while at work yesterday, 08/30/2020. She has been experiencing increased thoracic pain with thoracic radiculopathy since that time. She denies having a pacemaker. Review of x-ray imaging does show evidence of a midthoracic compression fracture deformity. At this time, we'll plan to obtain a thoracic MRI for further evaluation of her fracture and for further evaluation given her radiculopathy symptoms. We will review her thoracic MRI once completed and discuss the MRI results with the patient. We will currently planned to start working through conservative treatment options. We may change of plan of care based on patient's progress. 2. A prescription has been written, signed, and provided to case management to obtain a TLSO brace. Once his braces delivered and fitted properly, patient should wear the TLSO brace for comfort and support while sitting upright at greater than 45, while working with therapy, and while ambulating; patient does not have to wear the brace while lying in bed or bathing; Patient should avoid excessive bending, twisting, and lifting; no lifting greater than 10 pounds 3. Continue pain control with IV including Dilaudid as prescribed is significant pain control. Oral [place] 5/25 mg is 1 every 6 hours as needed for pain has been added to her orders. Patient is also prescribed cyclobenzaprine 10 mg 1 3 times a day as needed for muscle spasm. 4. We will resume the patient's home that medications. We'll plan for consultation for Dr. Clemente Gongora for medical management. Time with Patient: Greater than 30 (Including obtaining history, physical examination, reviewing of imaging, and dictation.)
--- NOTE | 2020-08-31 14:19 | MR ---
MR thoracic spine without contrast HISTORY: T7 compression fracture Multiplanar multisequence imaging obtained through the thoracic spine Correlation to x-ray 08/31/2020 Mild anterior wedging present at T7 to be chronic, there is Schmorl's node present inferior endplate. Multilevel spondylosis is present. There is no significant foraminal encroachment or spinal stenosis . Thoracic cord signal is maintained. There is multilevel spondylosis with minimal endplate marrow si gnal changes, Schmorl's node is also present inferior aspect of T10. There is no significant retropul bertha. No sizable disc herniation. IMPRESSION: Mild degenerative disc disease. Schmorl's node formation. No retropulsion or acute abnorm alities evident.
[2020-08-31] MEDS: HYDROmorphone 1 MG/ML 1 ML SYRINGE IVP PRN ×2 (15:10→19:29)
[2020-08-31] MEDS: ONDANSETRON 4 MG/2 ML VIAL IVP PRN (19:29)
[2020-08-31] MEDS: SYMBICORT 160-4.5 MCG INHALER INHALATION SCH (20:23)
[2020-08-31] MEDS: SERTRALINE 50 MG TAB PO SCH (22:25)
[2020-08-31] MEDS: PROPRANOLOL 20 MG TAB PO SCH (22:25)
[2020-09-01] MEDS: ONDANSETRON 4 MG/2 ML VIAL IVP PRN ×2 (01:44→08:01)
--- NOTE | 2020-09-01 06:15 | HP ---
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 She has been doing it 6-7 years, but due to severe pain and thoracic compression fracture at T7, she is admitted to the hospital. TLSO brace has been ordered. She has history of COPD, nicotine addiction. PAST MEDICAL HISTORY: GERD, chest pain, angina, COPD, bilateral tinnitus, migraines, anxiety, depression PAST SURGICAL HISTORY: Appendectomy, tubal ligation. SOCIAL HISTORY: Current everyday smoker. FAMILY HISTORY: Father coronary disease, myocardial infarction. Sister, mitral valve prolapse. Mother, cancer of the lung. MEDICATIONS: Home medicines Symbicort 160/4.5 two puffs b.i.d., Zoloft 50 mg b.i.d., Klonopin 0.5 daily, Motrin 200 mg q.8 hours, HydroDIURIL 50 mg daily, Acutrim 325 daily, DuoNeb t.i.d., propranolol 20 b.i.d. ALLERGIES: DUST PHYSICAL EXAMINATION: Vital signs stable. Afebrile. CARDIOVASCULAR: S1, S2. LUNGS: Clear. GI soft. HEMATOLOGY: Negative Homans. PSYCH: Fair mood and affect. NEUROLOGIC: Tests, palpation over the thoracic spine. LABS: Calcium 10.3, sodium 127, BUN is 5, creatinine 0.47. ASSESSMENT: 1. Acute thoracic back pain. 2. Thoracic radiculopathy. 3. Acute mid thoracic compression fracture. 4. Thoracic degenerative disk disease. 5. Pacemaker. 6. COPD. 7. Nicotine addiction. 8. Anxiety, depression. TLSO brace will be done. Continue with pain medications, [place] and Dilaudid, Flexeril. Home medications. MRI of the spine is ordered. Prognosis guarded. MMODL / IJN: [id number] /
[2020-09-01] MEDS: HYDROmorphone 1 MG/ML 1 ML SYRINGE IVP PRN (06:17)
[2020-09-01 07:15] VITALS: BP 119/67; PULSE 72; RESP 16; TEMP 97.8
[2020-09-01] MEDS: SYMBICORT 160-4.5 MCG INHALER INHALATION SCH (07:18)
[2020-09-01] MEDS: SERTRALINE 50 MG TAB PO SCH (07:54)
[2020-09-01] MEDS: PROPRANOLOL 20 MG TAB PO SCH (07:55)
[2020-09-01] MEDS ORDERED: clonazePAM 0.5 MG TAB PO SCH (09:00)
[2020-09-01] MEDS ORDERED: ASPIRIN 325 MG TAB PO SCH (09:00)
--- NOTE | 2020-09-01 12:59 | P.DS ---
Providers Date of admission: 08/31/20 08:57 Expected date of discharge: 09/01/20 Attending physician: Carlos Hassan Consults: 08/31/20 08:57 Consult Physician Routine Consulting Provider: Clemente Gongora Consult Reason/Comments: medical care Do you want consulting provider notified?: Yes Primary care physician: Clemente Gongora - Discharge Diagnosis(es) (1) Thoracic radiculopathy Current Visit: Yes Status: Acute (2) Acute thoracic back pain Current Visit: Yes Status: Acute (3) Current every day smoker Current Visit: Yes Status: Acute (4) Anxiety Current Visit: Yes Status: Acute (5) Depression Current Visit: Yes Status: Acute (6) History of angina Current Visit: Yes Status: Acute (7) Thoracic degenerative disc disease Current Visit: Yes Status: Acute (8) Thoracic spondylosis Current Visit: Yes Status: Acute (9) Thoracic compression fracture Current Visit: Yes Status: Acute (10) COPD (chronic obstructive pulmonary disease) Current Visit: No Status: Acute (11) Thoracic myofascial strain Current Visit: Yes Status: Acute Hospital Course: This is a pleasant 60-year-old female who presented with acute midthoracic back pain with radiculopathy after lifting heavy containers of coffee weighing approximately 20 pounds while at work. She is employed at a [employer]. She presented to the emergency department for further evaluation. X-ray imaging was taken which showed evidence of a thoracic compression fracture deformity approximately T7. She underwent thoracic MRI imaging due to her visualized fracture and thoracic radiculopathy. MRI imaging does show evidence of a T7 compression fracture deformity that is chronic in nature. She does not have evidence of large herniated nucleus pulposus, spinal canal stenosis, neural foraminal stenosis, or evidence of cord signal change. She does feel her pain has controlled today as compared to yesterday. She has continued to have some pain along the midline of the mid thoracic spine. She continues to deny any lower extremity weakness or radiculopathy bilaterally. A prescription having written and provided to case management for a TLSO brace. Patient has had difficulty getting this brace due to Worker's Compensation eating documentation. We did discuss given her chronicity of her T7 fracture the brace would not be required but she could benefit with bracing in the outpatient setting. Patient feels she is ready for discharge today. We will plan to discharge the patient home. We discussed she could obtain this TLSO brace following discharge and may use it for comfort support as needed with increased activities. We did discuss she should avoid excessive activities in regards to her thoracic spine but may participate in regular activities of daily living to her tolerance. She should avoid any heavy lifting. Condition on day of discharge stable. Patient will be discharged home. Patient currently denies any nausea, vomiting, fever, or chills. Patient is eating and voiding freely without difficulty. Given the severity of her symptoms and difficulty with work, we did discuss we'll plan to have her off work until at least her next follow-up appointment. Patient may follow-up with Ryne Wallace PA-C or Dr. Adan Hassan at [facility] in 2 weeks following discharge. She has had some benefit with oral [place] and cyclobenzaprine. MAPS has been reviewed today, 09/01/2020, with an Overall Overdose Risk Score of 020. An "Opiod Start Talking" Form has been signed and placed in the patient's chart. A prescription has been written for [place] 5 mg subcu 25 mg 1 every 6 hours as nee ded for pain, dispensed #28. Patient is also given a prescription for cyclobenzaprine 10 mg 1 tab 3 times a day as needed for muscle spasm, dispensed #60. Prescriptions are sent to the [facility] pharmacy located with [facility]. Patient's other medical diagnoses include COPD, history of chest pain/angina, anxiety, depression, and current every day smoker. Patient may resume her other previously prescribed medications as prescribed by Dr. Clemente Gongora. Pertinent studies: X-ray of the thoracic spine taken on 08/31/2020: Evidence of mild anterior wedging of a vertebral body at the mid thoracic spine; mid thoracic degenerative disc disease; multilevel spondylosis MRI of the thoracic spine taken on 08/31/2020: Mild degenerative disc disease; T7 mild anterior wedging appears to be chronic with Schmorl's node present at the inferior endplate; multilevel spondylosis; no significant neural foraminal encroachment or spinal canal stenosis; thoracic spinal cord signal is maintained; Schmorl's node present at the inferior aspect of T10; no significant disc herniation Physical Exam on day of discharge: Patient is awake, alert, and oriented 3 Vital signs stable Adequate chest excursion with deep inspiration and expiration Abdomen soft nontender Examination of thoracic and lumbar spine reveals skin is intact with no abrasions, lacerations, or bruises; no erythema, purulence or signs of infection Mild pain with palpation and percussion over the mid thoracic spine and over the thoracic paraspinal muscles at the mid thoracic spine No pain on palpation over the lumbar spine Dorsiflexion, plantarflexion, and extensor hallucis longus positive sustained bilaterally Lower extremity strength 5/5 bilaterally Straight leg test negative bilateral lower extremities No signs or symptoms of DVT; no calf pain No pain with internal and external rotation of the hips bilaterally Neurovascularly intact Assessment: Acute thoracic back pain after lifting at work Thoracic myofascial strain Thoracic radiculopathy Chronic T7 thoracic compression fracture deformity Thoracic degenerative disc disease Thoracic spondylosis COPD Current every day smoker History of chest pain/angina Anxiety Depression Patient Condition at Discharge: Stable Plan - Discharge Summary Discharge Rx Participant: No New Discharge Prescriptions: New Cyclobenzaprine [Flexeril] 10 mg PO TID PRN #60 tab PRN Reason: Muscle Spasm HYDROcodone/APAP 5-325MG [[place] 5] 1 each PO Q6HR PRN #28 tab PRN Reason: Pain No Action Budesonide-Formot 160-4.5 Mcg [Symbicort 160-4.5 Mcg Inhaler] 2 puff INHALATION RT-BID #1 unit clonazePAM [KlonoPIN] 0.5 mg PO DAILY Sertraline [Zoloft] 50 mg PO BID hydroCHLOROthiazide [Hydrodiuril] 50 mg PO DAILY Ibuprofen [Motrin Ib] 200 mg PO Q8H PRN PRN Reason: Pain Propranolol HCl 20 mg PO BID Ipratropium-Albuterol Nebulize [Duoneb 0.5 mg-3 mg/3 ml Soln] 3 ml INHALATION RT-TID PRN PRN Reason: Shortness Of Breath Aspirin EC [Ecotrin] 325 mg PO DAILY Discharge Medication List Budesonide-Formot 160-4.5 Mcg [Symbicort 160-4.5 Mcg Inhaler] 2 puff INHALATION RT-BID #1 unit 12/01/17 [Rx] Sertraline [Zoloft] 50 mg PO BID 09/16/19 [History] clonazePAM [KlonoPIN] 0.5 mg PO DAILY 09/16/19 [History] hydroCHLOROthiazide [Hydrodiuril] 50 mg PO DAILY 05/04/20 [History] Aspirin EC [Ecotrin] 325 mg PO DAILY 08/31/20 [History] Ibuprofen [Motrin Ib] 200 mg PO Q8H PRN 08/31/20 [History] Ipratropium-Albuterol Nebulize [Duoneb 0.5 mg-3 mg/3 ml Soln] 3 ml INHALATION RT-TID PRN 08/31/20 [History] Propranolol HCl 20 mg PO BID 08/31/20 [History] Cyclobenzaprine [Flexeril] 10 mg PO TID PRN #60 tab 09/01/20 [Rx] HYDROcodone/APAP 5-325MG [[place] 5] 1 each PO Q6HR PRN #28 tab 09/01/20 [Rx] Follow up Appointment(s)/Referral(s): Ryne Wallace PAC [PHYSICIAN MOLD TECHNICIAN] - 2 Weeks (Patient may follow-up with Ryne Wallace PA-C or Dr. Adan Hassan at [facility] in 2-3 weeks following discharge. ) Clemente Gongora MD [Primary Care Provider] - 1-2 days Activity/Diet/Wound Care/Special Instructions: 1. Patient should avoid excessive activities in regards to her thoracic spine but may participate in regular activities of daily living to her tolerance 2. Patient should avoid excessive bending, twisting, and lifting; no lifting greater than 10 pounds 3. Patient may obtain TLSO brace following discharge and may wear this brace for comfort support as needed during increased activities 4. Patient may weight-bear to her tolerance Discharge Disposition: HOME SELF-CARE
== END 2020-09-01 15:02 | disposition home or self-care (01) ==
LOC: EC 07:02 → 6NMEDSUR 08:57
PROVIDERS: ADMIT Orthopaedic Surgery Orthopaedic Surgery of the Spine; ATTEND Orthopaedic Surgery Orthopaedic Surgery of the Spine
DX: S22.060A Wedge compression fracture of T7-T8 vertebra, initial encounter for closed fracture (principal); S29.012A Strain of muscle and tendon of back wall of thorax, initial encounter; M51.14 Intervertebral disc disorders with radiculopathy, thoracic region; M47.24 Other spondylosis with radiculopathy, thoracic region; G89.29 Other chronic pain; J44.9 Chronic obstructive pulmonary disease, unspecified; K21.9 Gastro-esophageal reflux disease without esophagitis; G43.909 Migraine, unspecified, not intractable, without status migrainosus; H93.13 Tinnitus, bilateral; H91.93 Unspecified hearing loss, bilateral; F32.9 Major depressive disorder, single episode, unspecified; F41.9 Anxiety disorder, unspecified; F17.200 Nicotine dependence, unspecified, uncomplicated; Z79.51 Long term (current) use of inhaled steroids; Z79.899 Other long term (current) drug therapy; Z79.82 Long term (current) use of aspirin; Z98.51 Tubal ligation status; Z90.49 Acquired absence of other specified parts of digestive tract; Z98.890 Other specified postprocedural states; X50.0XXA Overexertion from strenuous movement or load, initial encounter; Y99.0 Civilian activity done for income or pay; Z80.1 Family history of malignant neoplasm of trachea, bronchus and lung; Z82.49 Family history of ischemic heart disease and other diseases of the circulatory system; Z83.1 Family history of other infectious and parasitic diseases
CPT/HCPCS: 96376 ×3; 96375 ×2; 96374; 99285; 36415; 94640 ×3; 93005; 85379; 80053; 83735; 84484; 85025; 85610; 85730; 72072; 71046; 72146; G0378 ×2; J2360; J2405 ×2; J1170 ×2

== ENCOUNTER 2021-03-26 20:20 | Emergency (ER) | payer OTHER ==
[2021-03-26 20:34] VITALS: TEMP 97.7
[2021-03-26 21:01] LABS: Basophils # (A) 0.1 k/uL (0-0.2); Basophils % (A) 1 %; Eosinophils # (A) 0.2 k/uL (0-0.7); Eosinophils % (A) 2 %; HCT 49.4 % (34.0-46.0); HGB 16.2 gm/dL (11.4-16.0); Lymphocytes # (A) 2.3 k/uL (1.0-4.8); Lymphocytes % (A) 30 %; MCH 33.8 pg (25.0-35.0); MCHC 32.7 g/dL (31.0-37.0); MCV 103.2 fL (80.0-100.0); Macrocytosis Slight; Mean Platelet Volume 7.7; Monocytes # (A) 0.6 k/uL (0-1.0); Monocytes % (A) 8 %; Neutrophils # (A) 4.3 k/uL (1.3-7.7); Neutrophils % (A) 57 %; Platelet Count 326 k/uL (150-450); RBC 4.79 m/uL (3.80-5.40); RDW 12.1 % (11.5-15.5); WBC 7.5 k/uL (3.8-10.6)
[2021-03-26 21:11] LABS: ALT 20 U/L (4-34); AST 29 U/L (14-36); African American GFR (CKD) >90 (>60 ml/min/1.73 sqM); Albumin 4.2 g/dL (3.5-5.0); Alkaline Phosphatase 85 U/L (38-126); Anion Gap 9 mmol/L; Blood Urea Nitrogen 15 mg/dL (7-17); Calcium 9.5 mg/dL (8.4-10.2); Carbon Dioxide 26 mmol/L (22-30); Chloride 102 mmol/L (98-107); Glucose 120 mg/dL (74-99); Magnesium 1.9 mg/dL (1.6-2.3); Non-African American GFR(CKD) >90 (>60 ml/min/1.73 sqM); Potassium 4.3 mmol/L (3.5-5.1); Sodium 137 mmol/L (137-145); Total Bilirubin 0.7 mg/dL (0.2-1.3); Total Protein 6.9 g/dL (6.3-8.2)
--- NOTE | 2021-03-26 21:17 | XR ---
EXAMINATION TYPE: XR chest 2V DATE OF EXAM: 03/26/2021 9:08 PM COMPARISON:Chest radiographs from 09/01/2019 TECHNIQUE: XR chest 2V Frontal and lateral views of the chest. CLINICAL INDICATION:Female, 61 years old with history of Chest Pain; FINDINGS: Lungs/Pleura: There is flattening of the diaphragm with increased lucency of the lungs. No evidence o f pneumothorax, pleural effusion or focal consolidation. Pulmonary vascularity: Unremarkable. Heart/mediastinum: Cardiomediastinal silhouette is unremarkable. Musculoskeletal: No acute osseous pathology. IMPRESSION: 1. No acute cardiopulmonary disease process. 2. COPD changes.
[2021-03-26 21:20] LABS: INR 0.9 (<1.2); Partial Thromboplastin Time 21.8 sec (22.0-30.0); Prothrombin Time 9.7 sec (9.0-12.0)
[2021-03-27] MEDS ORDERED: HYDROmorphone 0.5 MG/0.5 ML SYRINGE IVP STA (01:13)
--- NOTE | 2021-03-27 01:17 | ED ---
General Adult HPI - General Chief complaint: Chest Pain Stated complaint: Chest Pain, Numbness in arm and legs Time Seen by Provider: 03/27/21 01:02 Source: patient Mode of arrival: wheelchair Limitations: no limitations - History of Present Illness Initial comments: Dictation was produced using [employer] dictation software. please excuse any grammatical, word or spelling errors. Chief Complaint: 61-year-old who presents emergency department for chest pain History of Present Illness: 61-year-old female she states she's been having c hest pain since this morning. States it is left-sided sharp. States radius on the left upper extremity. No nausea vomiting or diaphoresis associated with it. Patient denies any significant history of cardiac disease. She does have history of smoking use. Patient reports that the pain is sometimes sharp and sometimes dull. She really can feel with coughing. The ROS documented in this emergency department record has been reviewed and confirmed by me. Those systems with pertinent positive or negative responses have been documented in the HPI. All other systems are other negative and/or noncontributory. PHYSICAL EXAM: General Impression: Alert and oriented x3, not in acute distress HEENT: Normocephalic atraumatic, extra-ocular movements intact, pupils equal and reactive to light bilaterally, mucous membranes moist. Cardiovascular: Heart regular rate and rhythm Chest: Able to complete full sentences, no retractions, no tachypnea Abdomen: abdomen soft, non-tender, non-distended, no organomegaly Musculoskeletal: Pulses present and equal in all extremities, no peripheral edema Motor: no focal deficits noted Neurological: CN II-XII grossly intact, no focal motor or sensory deficits noted Skin: Intact with no visualized rashes Psych: Normal affect and mood ED course: 61-year-old female presents emergency department with atypical chest pain typical features. Vital signs upon arrival shows heart rate of 117, rest of vital signs within acceptable limits. EKG shows no signs of ischemia infarction however she is tachycardic. Laboratory evaluation obtained. CBC, coag panel, metabolic panel is unremarkable. Patient's d-dimer is normal cord age-adjusted d-dimer. Serial t roponins are negative. Patient reverted bedside at 3:00 AM found him in stable medical condition. Patient advised follow-up with primary care doctor. Return precautions discussed. EKG interpretation: Ventricular rate 11, sinus tachycardia,. 125, QRS 89, QTc 398. No IN prolongation, no QTC prolongation, no ST or T-wave changes noted. EKG compared to 08/31/2020 showing no changes. Overall, this EKG is unremarkable - Related Data Home Medications Medication Instructions Recorded Confirmed Sertraline [Zoloft] 50 mg PO BID 09/16/19 08/31/20 clonazePAM [KlonoPIN] 0.5 mg PO DAILY 09/16/19 08/31/20 hydroCHLOROthiazide [Hydrodiuril] 50 mg PO DAILY 05/04/20 08/31/20 Aspirin EC [Ecotrin] 325 mg PO DAILY 08/31/20 08/31/20 Ibuprofen [Motrin Ib] 200 mg PO Q8H PRN 08/31/20 08/31/20 Ipratropium-Albuterol Nebulize 3 ml INHALATION RT-TID PRN 08/31/20 08/31/20 [Duoneb 0.5 mg-3 mg/3 ml Soln] Propranolol HCl 20 mg PO BID 08/31/20 08/31/20 Previous Rx's Medication Instructions Recorded Budesonide-Formot 160-4.5 Mcg 2 puff INHALATION RT-BID #1 unit 12/01/17 [Symbicort 160-4.5 Mcg Inhaler] Cyclobenzaprine [Flexeril] 10 mg PO TID PRN #60 tab 09/01/20 HYDROcodone/APAP 5-325MG [[place] 5] 1 each PO Q6HR PRN #28 tab 09/01/20 Allergies Allergy/AdvReac Type Severity Reaction Status Date / Time dust Allergy Dyspnea Uncoded 03/26/21 20:31 Review of Systems ROS Statement: Those systems with pertinent positive or pertinent negative responses have been documented in the HPI. ROS Other: All systems not noted in ROS Statement are negative. Past Medical History Past Medical History: Chest Pain / Angina, COPD, GERD/Reflux Additional Past Medical History / Comment(s): Chronic bronchitis, sinus tachycardia, chronic back pain, migraines, [place] bilaterally, bilateral tinnitis. History of Any Multi-Drug Resistant Organisms: None Reported Past Surgical History: Appendectomy, Tubal Ligation Additional Past Surgical History / Comment(s): pt states heart cath back in 2004 with no stents Past Anesthesia/Blood Transfusion Reactions: No Reported Reaction Past Psychological History: Anxiety, Depression Smoking Status: Current every day smoker Past Alcohol Use History: None Reported Past Drug Use History: None Reported - Past Family History Brother(s) Family Medical History: Coronary Artery Disease (CAD), Myocardial Infarction ([place]) Additional Family Medical History / Comment(s): Brother had [place] in his early 40s, pacemaker Sister(s) Family Medical History: Mitral Valve Prolapse (MVP) Father Additional Family Medical History / Comment(s): "post op mrsa infection- from complications of that" Mother Family Medical History: Cancer Additional Family Medical History / Comment(s): Lung cancer General Exam Limitations: no limitations Course Vital Signs 03/26/21 03/27/21 20:31 02:25 Temperature 97.7 F Pulse Rate 117 H 89 Respiratory 20 18 Rate Blood Pressure 138/80 138/96 O2 Sat by Pulse 97 97 Oximetry Medical Decision Making - Lab Data Result diagrams: 03/26/21 20:51 03/26/21 20:51 Lab Results 03/26/21 03/26/21 03/26/21 Range/Units 20:51 20:51 20:51 WBC 7.5 (3.8-10.6) k/uL RBC 4.79 (3.80-5.40) m/uL Hgb 16.2 H (11.4-16.0) gm/dL Hct 49.4 H (34.0-46.0) % MCV 103.2 H (80.0-100.0) fL MCH 33.8 (25.0-35.0) pg MCHC 32.7 (31.0-37.0) g/dL RDW 12.1 (11.5-15.5) % Plt Count 326 (150-450) k/uL MPV 7.7 Neutrophils % 57 % Lymphocytes % 30 % Monocytes % 8 % Eosinophils % 2 % Basophils % 1 % Neutrophils # 4.3 (1.3-7.7) k/uL Lymphocytes # 2.3 (1.0-4.8) k/uL Monocytes # 0.6 (0-1.0) k/uL Eosinophils # 0.2 (0-0.7) k/uL Basophils # 0.1 (0-0.2) k/uL Macrocytosis Slight PT 9.7 (9.0-12.0) sec INR 0.9 (<1.2) APTT 21.8 L (22.0-30.0) sec D-Dimer (<0.60) mg/L FEU Sodium 137 (137-145) mmol/L Potassium 4.3 (3.5-5.1) mmol/L Chloride 102 (98-107) mmol/L Carbon Dioxide 26 (22-30) mmol/L Anion Gap 9 mmol/L BUN 15 (7-17) mg/dL Creatinine 0.70 (0.52-1.04) mg/dL Est GFR (CKD-EPI)AfAm >90 (>60 ml/min/1.73 sqM) Est GFR (CKD-EPI)NonAf >90 (>60 ml/min/1.73 sqM) Glucose 120 H (74-99) mg/dL Calcium 9.5 (8.4-10.2) mg/dL Magnesium 1.9 (1.6-2.3) mg/dL Total Bilirubin 0.7 (0.2-1.3) mg/dL AST 29 (14-36) U/L ALT 20 (4-34) U/L Alkaline Phosphatase 85 (38-126) U/L Troponin I (0.000-0.034) ng/mL Total Protein 6.9 (6.3-8.2) g/dL Albumin 4.2 (3.5-5.0) g/dL 03/26/21 03/27/21 03/27/21 Range/Units 20:51 02:21 02:21 WBC (3.8-10.6) k/uL RBC (3.80-5.40) m/uL Hgb (11.4-16.0) gm/dL Hct (34.0-46.0) % MCV (80.0-100.0) fL MCH (25.0-35.0) pg MCHC (31.0-37.0) g/dL RDW (11.5-15.5) % Plt Count (150-450) k/uL MPV Neutrophils % % Lymphocytes % % Monocytes % % Eosinophils % % Basophils % % Neutrophils # (1.3-7.7) k/uL Lymphocytes # (1.0-4.8) k/uL Monocytes # (0-1.0) k/uL Eosinophils # (0-0.7) k/uL Basophils # (0-0.2) k/uL Macrocytosis PT (9.0-12.0) sec INR (<1.2) APTT (22.0-30.0) sec D-Dimer 0.54 (<0.60) mg/L FEU Sodium (137-145) mmol/L Potassium (3.5-5.1) mmol/L Chloride (98-107) mmol/L Carbon Dioxide (22-30) mmol/L Anion Gap mmol/L BUN (7-17) mg/dL Creatinine (0.52-1.04) mg/dL Est GFR (CKD-EPI)AfAm (>60 ml/min/1.73 sqM) Est GFR (CKD-EPI)NonAf (>60 ml/min/1.73 sqM) Glucose (74-99) mg/dL Calcium (8.4-10.2) mg/dL Magnesium (1.6-2.3) mg/dL Total Bilirubin (0.2-1.3) mg/dL AST (14-36) U/L ALT (4-34) U/L Alkaline Phosphatase (38-126) U/L Troponin I <0.012 <0.012 (0.000-0.034) ng/mL Total Protein (6.3-8.2) g/dL Albumin (3.5-5.0) g/dL Disposition Clinical Impression: Chest pain Disposition: HOME SELF-CARE Condition: Good Instructions (If sedation given, give patient instructions): Chest Pain (ED) Is patient prescribed a controlled substance at d/c from ED?: No Referrals: Clemente Gongora MD [Primary Care Provider] - 1-2 days
[2021-03-27 02:27] VITALS: BP 138/96; PULSE 89; RESP 18
[2021-03-27] MEDS ORDERED: ASPIRIN 81 MG PO STA (03:05)
== END 2021-03-27 03:20 | disposition home or self-care (01) ==
LOC: EC 20:20
DX: R07.89 Other chest pain (principal); J44.9 Chronic obstructive pulmonary disease, unspecified; K21.9 Gastro-esophageal reflux disease without esophagitis; F32.A Depression, unspecified; F41.9 Anxiety disorder, unspecified; F17.200 Nicotine dependence, unspecified, uncomplicated; Z79.82 Long term (current) use of aspirin; Z79.899 Other long term (current) drug therapy
CPT/HCPCS: 36415 ×2; 93005; 85379; 80053; 83735; 84484 ×2; 85025; 85610; 85730; 71046; 99285; 96374; J1170

== ENCOUNTER 2021-10-16 11:15 | Emergency (ER) | payer OTHER ==
[2021-10-16 11:52] VITALS: BP 166/92; PULSE 89; RESP 16; TEMP 98.2
[2021-10-16] MEDS ORDERED: ASPIRIN 81 MG PO STA (12:01)
[2021-10-16] MEDS ORDERED: KETOROLAC 15 MG/ML 1 ML VIAL IVP STA (12:18)
--- NOTE | 2021-10-16 13:03 | XR ---
EXAMINATION TYPE: XR shoulder complete LT DATE OF EXAM: 10/16/2021 12:51 PM INDICATION: Patient age:Female; 61 years old; Reason for study: injury; COMPARISON: Left shoulder radiograph 04/14/2014. TECHNIQUE: The left shoulder was examined in AP, internally rotated and scapular Y projections. . FINDINGS: No evidence of acute osseous pathology, joint dislocation, or soft tissue swelling. Mild hypertrophic changes in the left AC joint. The remaining portions of the visualized chest are unremarkable. IMPRESSION: 1. No acute osseous pathology. 2. Mild AC joint degenerative changes.
--- NOTE | 2021-10-16 13:14 | XR ---
EXAMINATION TYPE: XR thoracic spine complete DATE OF EXAM: 10/16/2021 12:51 PM INDICATION: Patient age:Female; 61 years old; Reason for study: injury; [facility]. COMPARISON: Thoracic spine radiograph 08/31/2020 TECHNIQUE: Frontal, lateral, swimmer's projections of the thoracic spine. FINDINGS: Interval anterior wedge compression deformity of the likely T6 vertebral body with approximately 20% height loss and no retropulsion. Multilevel degenerative changes visualized spine. Normal alignment o f the thoracic vertebral bodies. Lucency in the upper lobes likely related to underlying emphysematou s changes. IMPRESSION: 1. Age-indeterminate anterior wedge compression deformity of the likely T6 vertebral body which is n ew from prior examination of 08/31/2020. Correlation with point tenderness is recommended. 2. Mild degenerative disc disease. 3. Emphysematous changes.
--- NOTE | 2021-10-16 14:36 | ED ---
Extremity Problem HPI - General Chief complaint: Extremity Problem,Nontraumatic Stated complaint: back pain Time Seen by Provider: 10/16/21 11:53 Source: patient Mode of arrival: ambulatory Limitations: no limitations - History of Present Illness Initial comments: This patient is 61-year-old woman who presents with complaint of pain in the left shoulder left back adjacent to the shoulder and left chest wall. She states that she noticed it after she had been sleeping. The pain is worse when she moves her left arm. Pain also sometimes flares when she takes a deep breath. She has not had any anginal type symptoms. No leg pain or swelling. No immobilization or prolonged travel. No history DVT or PE. The patient does not remember any inciting trauma but states that she does do a fair amount of exertion/lifting at work MD Complaint: extremity pain -: hour(s) Location: left -: Yes myalgia Quality: aching Consistency: intermittent Improves with: immobilization Worsens with: other (Movement) Associated Symptoms: denies other symptoms - Related Data Home Medications Medication Instructions Recorded Confirmed Sertraline [Zoloft] 50 mg PO BID 09/16/19 08/31/20 clonazePAM [KlonoPIN] 0.5 mg PO DAILY 09/16/19 08/31/20 hydroCHLOROthiazide [Hydrodiuril] 50 mg PO DAILY 05/04/20 08/31/20 Aspirin EC [Ecotrin] 325 mg PO DAILY 08/31/20 08/31/20 Ibuprofen [Motrin Ib] 200 mg PO Q8H PRN 08/31/20 08/31/20 Ipratropium-Albuterol Nebulize 3 ml INHALATION RT-TID PRN 08/31/20 08/31/20 [Duoneb 0.5 mg-3 mg/3 ml Soln] Propranolol HCl 20 mg PO BID 08/31/20 08/31/20 Previous Rx's Medication Instructions Recorded Budesonide-Formot 160-4.5 Mcg 2 puff INHALATION RT-BID #1 unit 12/01/17 [Symbicort 160-4.5 Mcg Inhaler] Cyclobenzaprine [Flexeril] 10 mg PO TID PRN #60 tab 09/01/20 HYDROcodone/APAP 5-325MG [[place] 5] 1 each PO Q6HR PRN #28 tab 09/01/20 HYDROcodone/APAP 5-325MG [[place] 1 tab PO Q4HR PRN 3 Days #18 tab 10/16/21 5-325] methocarbamoL [Robaxin-750] 750 mg PO TID #21 tab 10/16/21 Allergies Allergy/AdvReac Type Severity Reaction Status Date / Time dust Allergy Dyspnea Uncoded 10/16/21 11:52 Review of Systems ROS Statement: Those systems with pertinent positive or pertinent negative responses have been documented in the HPI. ROS Other: All systems not noted in ROS Statement are negative. Constitutional: Denies: fever, chills Respiratory: Denies: cough, dyspnea, wheezes, hemoptysis Cardiovascular: Denies: chest pain Gastrointestinal: Denies: abdominal pain, vomiting, diarrhea Genitourinary: Denies: dysuria Musculoskeletal: Reports: myalgia Skin: Denies: rash Neurological: Denies: headache, weakness, numbness Past Medical History Past Medical History: Chest Pain / Angina, COPD, GERD/Reflux Additional Past Medical History / Comment(s): Chronic bronchitis, sinus tachycardia, chronic back pain, migraines, [place] bilaterally, bilateral tinnitis. History of Any Multi-Drug Resistant Organisms: None Reported Past Surgical History: Appendectomy, Tubal Ligation Additional Past Surgical History / Comment(s): pt states heart cath back in 2004 with no stents Past Anesthesia/Blood Transfusion Reactions: No Reported Reaction Past Psychological History: Anxiety, Depression Smoking Status: Current every day smoker Past Alcohol Use History: None Reported Past Drug Use History: None Reported - Past Family History Brother(s) Family Medical History: Coronary Artery Disease (CAD), Myocardial Infarction ([place]) Additional Family Medical History / Comment(s): Brother had [place] in his early 40s, pacemaker Sister(s) Family Medical History: Mitral Valve Prolapse (MVP) Father Additional Family Medical History / Comment(s): "post op mrsa infection- from complications of that" Mother Family Medical History: Cancer Additional Family Medical History / Comment(s): Lung cancer General Exam Limitations: no limitations General appearance: alert, in no apparent distress Head exam: Present: atraumatic, normocephalic Eye exam: Present: normal appearance Neck exam: Present: normal inspection, full ROM Respiratory exam: Present: normal lung sounds bilaterally, chest wall tenderness (Left chest wall). Absent: respiratory distress, wheezes, rales, rhonchi, stridor Cardiovascular Exam: Present: regular rate, normal rhythm, normal heart sounds. Absent: systolic murmur, diastolic murmur, rubs, gallop GI/Abdominal exam: Present: soft. Absent: distended, tenderness, guarding, rebound, rigid, mass Extremities exam: Present: normal inspection, normal capillary refill. Absent: pedal edema, calf tenderness Back exam: Present: normal inspection, muscle spasm (Left rhomboid muscles). Absent: CVA tenderness (R), CVA tenderness (L), paraspinal tenderness, vertebral tenderness Neurological exam: Present: alert Skin exam: Present: warm, dry, intact, normal color. Absent: rash Course Vital Signs 10/16/21 11:49 Temperature 98.2 F Pulse Rate 89 Respiratory 16 Rate Blood Pressure 166/92 O2 Sat by Pulse 97 Oximetry Medical Decision Making - Medical Decision Making Patient is 61-year-old woman with reproducible pain in the chest wall and left rhomboid muscles. Given that she mentioned the exacerbation with inspiration d- dimer was checked and is negative. Patient did state that she had similar pains to this when she had an injury at work and had a thoracic spine compression fracture. Recheck the x-ray today not seeing any acute fracture suspect the visualized T6 is old as this is where the patient states her previous injury was. - Lab Data Lab Results 10/16/21 Range/Units 12:40 D-Dimer 0.51 (<0.60) mg/L FEU Disposition Clinical Impression: Muscle strain, Compression fracture Disposition: HOME SELF-CARE Condition: Good Instructions (If sedation given, give patient instructions): Muscle Strain (ED) Prescriptions: HYDROcodone/APAP 5-325MG [[place] 5-325] 1 tab PO Q4HR PRN 3 Days #18 tab PRN Reason: Pain methocarbamoL [Robaxin-750] 750 mg PO TID #21 tab Is patient prescribed a controlled substance at d/c from ED?: No Referrals: Clemente Gongora MD [Primary Care Provider] - 1-2 days
[2021-10-16] MEDS ORDERED: MORPHINE SULFATE 4 MG/ML SYRINGE IVP STA (15:21)
== END 2021-10-16 15:27 | disposition home or self-care (01) ==
LOC: EC 11:15
DX: S22.000A Wedge compression fracture of unspecified thoracic vertebra, initial encounter for closed fracture (principal); T14.8XXA Other injury of unspecified body region, initial encounter; J44.9 Chronic obstructive pulmonary disease, unspecified; F17.200 Nicotine dependence, unspecified, uncomplicated; Z79.51 Long term (current) use of inhaled steroids; Z91.048 Other nonmedicinal substance allergy status; X50.0XXA Overexertion from strenuous movement or load, initial encounter; Y99.0 Civilian activity done for income or pay
CPT/HCPCS: 36415; 85379; 72072; 73030; 99283; 96374; 96375; J2270; J3360; J1885

== ENCOUNTER 2022-03-13 21:30 | Emergency (ER) | payer OTHER ==
[2022-03-13 21:36] VITALS: TEMP 98.6
[2022-03-13] MEDS ORDERED: SODIUM CHLORIDE 0.9% 1,000 ML IV STA (21:46)
[2022-03-13] MEDS ORDERED: KETOROLAC 15 MG/ML 1 ML VIAL IVP STA (21:46)
[2022-03-13] MEDS ORDERED: fentaNYL (PF) 50 MCG/ML 2 ML AMP IVP STA (21:47)
--- NOTE | 2022-03-13 21:53 | ED ---
Abdominal Pain HPI - General Chief Complaint: Abdominal Pain Stated Complaint: abdominal pain Time Seen by Provider: 03/13/22 21:39 Source: patient, RN notes reviewed, old records reviewed Mode of arrival: ambulatory - History of Present Illness Initial Comments: This is a nontoxic appearing 62-year-old female who presents ambulatory with complaints of left lower abdominal pain for the past 10 days. Patient states she hasn't had a good bowel movement in 10 days. Is passing gas. Denies any nausea. Does report chills but no documented fever. Denies any chest pain or difficulty breathing. She states that she has been trying Colace, apple juice with no relief. Previous abdominal surgeries consisting of appendectomy and sections. Does have history of COPD and she is a half a pack a day smoker. Other medical history of GERD, tachycardia, headaches, and chronic back pain. MD Complaint: abdominal pain -: days(s) (10) Location: LLQ Radiation: RLQ Severity scale (1-10): 8 Quality: sharp Consistency: constant Improves With: nothing Associated Symptoms: chills, constipation Treatments Prior to Arrival: other (Colace) - Related Data Previous Rx's Medication Instructions Recorded Budesonide-Formot 160-4.5 Mcg 2 puff INHALATION RT-BID #1 unit 12/01/17 [Symbicort 160-4.5 Mcg Inhaler] Ciprofloxacin HCl [Cipro] 500 mg PO BID 5 Days #10 tab 03/14/22 metroNIDAZOLE [Flagyl] 500 mg PO TID 5 Days #15 tab 03/14/22 Allergies Allergy/AdvReac Type Severity Reaction Status Date / Time dust Allergy Dyspnea Uncoded 03/13/22 22:32 Review of Systems ROS Statement: Those systems with pertinent positive or pertinent negative responses have been documented in the HPI. ROS Other: All systems not noted in ROS Statement are negative. Past Medical History Past Medical History: Chest Pain / Angina, COPD, GERD/Reflux Additional Past Medical History / Comment(s): Chronic bronchitis, sinus tachyca rdia, chronic back pain, migraines, [place] bilaterally, bilateral tinnitis. History of Any Multi-Drug Resistant Organisms: None Reported Past Surgical History: Appendectomy, Tubal Ligation Additional Past Surgical History / Comment(s): pt states heart cath back in 2004 with no stents Past Anesthesia/Blood Transfusion Reactions: No Reported Reaction Past Psychological History: Anxiety, Depression Smoking Status: Current every day smoker Past Alcohol Use History: None Reported Past Drug Use History: None Reported - Past Family History Brother(s) Family Medical History: Coronary Artery Disease (CAD), Myocardial Infarction (AR) Additional Family Medical History / Comment(s): Brother had AR in his early 40s, pacemaker Sister(s) Family Medical History: Mitral Valve Prolapse (MVP) Father Additional Family Medical History / Comment(s): "post op mrsa infection- from complications of that" Mother Family Medical History: Cancer Additional Family Medical History / Comment(s): Lung cancer General Exam General appearance: alert, in no apparent distress Head exam: Present: atraumatic, normocephalic, normal inspection Eye exam: Absent: scleral icterus, conjunctival injection, periorbital swelling, periorbital tenderness ENT exam: Present: mucous membranes moist Neck exam: Absent: tenderness, meningismus Respiratory exam: Present: normal lung sounds bilaterally. Absent: respiratory distress, wheezes, rales, rhonchi, stridor, chest wall tenderness, accessory muscle use Cardiovascular Exam: Present: tachycardia GI/Abdominal exam: Present: soft, tenderness (Left lower quadrant and right lower quadrant). Absent: distended, guarding, rebound, rigid, mass, hernia Extremities exam: Present: normal capillary refill. Absent: pedal edema Back exam: Absent: CVA tenderness (R), CVA tenderness (L) Neurological exam: Present: alert, oriented X3, normal gait Psychiatric exam: Present: normal affect, normal mood Skin exam: Present: warm, dry, normal color. Absent: cyanosis, diaphoretic, petechiae, pallor Course Vital Signs 03/13/22 03/14/22 21:31 00:26 Temperature 98.6 F Pulse Rate 117 H 74 Respiratory 18 15 Rate Blood Pressure 167/91 135/87 O2 Sat by Pulse 94 L 100 Oximetry Medical Decision Making - Medical Decision Making Vital signs are stable. Patient had complaints of chills at home but has been afebrile. Labs show no evidence of leukocytosis. Electrolytes are unremarkable. CT the abdomen and pelvis shows hypodense liver mass which is a change compared to old. Follow-up is recommended. Back stranding and wall thickening of the sigmoid colon suggestive of colitis or diverticulitis no evidence of bowel obstruction. She was given IV fluids, Toradol, Dilaudid and fentanyl for pain. She was also given a dose of Cipro and Flagyl in the emergency room and a prescription to continue these antibiotics at home. She was advised of finding diverticulitis on CT and an incidental finding of a hypodense liver mass. Explained that she should follow-up with her primary care doctor this week for continuation of care I encouraged her to take probiotics while taking antibiotics. Strict return parameters were discussed. She is agreeable to this plan of care Case discussed with Dr. Cosme GERD, tachycardia, headaches, and chronic back pain. Was pt. sent in by a medical professional or institution? @ -no Did you speak to anyone other than the patient for history? @ -no Did you review nursing and triage notes? @ -yes i agree Were old charts reviewed? @ -yes old ekg Differential Diagnosis? @ -Differential Abdominal Pain Women: Appendicitis, Cholecystitis, diverticulosis, ischemic bowel, pancreatitis, hepatitis, UTI, gastroenteritis, AAA, incarcerated hernia, bowel obstruction, constipation, inflammatory bowel, hepatitis, peptic ulcer disease, splenic infarction, perforated viscus,kidney stone, this is not meant to be an all- inclusive list CT interpreted by me (1pt min.)? @ -CT interpreted by me shows evidence of diverticulitis, radiologist interpretation as above U/S interpreted by me (1pt. min.)? @ -[none] What testing was considered but not performed? (CT, X-rays, U/S, labs)? Why? @ none What meds were considered but not given? Why? @ -none Did you discuss the management of the patient with other professionals? @ -non Did you reconcile home meds? @ no Was smoking cessation discussed for >3mins.? @ -no Was critical care preformed (if so, how long)? @ -no Were there social determinants of health that impacted care today? How? (Homelessness, low income, unemployed, alcoholism, drug addiction, transportation, low edu. Level, literacy, decrease access to med. care, prison, rehab)? @ -no Was there de-escalation of care discussed even if they declined? (Discuss DNR or withdrawal of care, Hospice)? @ -none What co-morbidities impacted this encounter? (DM, HTN, Smoking, COPD, CAD, Cancer, CVA, Hep., AIDS, mental health diagnosis, sleep apnea, morbid obesity)? @ -GERD, tachycardia Was patient admitted / discharged? @ -discharged Undiagnosed new problem with uncertain prognosis? @ -Diverticulitis recommended follow-up with her primary care doctor for liver mass and diverticulitis including a colonoscopy within the next 6 weeks Drug Therapy requiring intensive monitoring for toxicity (Heparin, Nitro, Insulin, Cardizem)? @ -non Were any procedures done? @ no Diagnosis/symptom? @ -Diverticulitis, new liver mass Acute, or Chronic, or Acute on Chronic? @ -Acute Uncomplicated (without systemic symptoms) or Complicated (systemic symptoms)? @ -Complicated Side effects of treatment? @ -[none] Exacerbation, Progression, or Severe Exacerbation] @ -[no] Poses a threat to life or bodily function? @ -yes - Lab Data Result diagrams: 03/13/22 21:59 03/13/22 21:59 Lab Results 03/13/22 03/13/22 03/13/22 Range/Units 21:59 21:59 21:59 WBC 9.1 (3.8-10.6) k/uL RBC 4.56 (3.80-5.40) m/uL Hgb 15.1 (11.4-16.0) gm/dL Hct 44.5 (34.0-46.0) % MCV 97.6 (80.0-100.0) fL MCH 33.0 (25.0-35.0) pg MCHC 33.8 (31.0-37.0) g/dL RDW 12.0 (11.5-15.5) % Plt Count 354 (150-450) k/uL MPV 7.8 Neutrophils % 78 % Lymphocytes % 12 % Monocytes % 7 % Eosinophils % 1 % Basophils % 0 % Neutrophils # 7.0 (1.3-7.7) k/uL Lymphocytes # 1.1 (1.0-4.8) k/uL Monocytes # 0.6 (0-1.0) k/uL Eosinophils # 0.1 (0-0.7) k/uL Basophils # 0.0 (0-0.2) k/uL Sodium 133 L (137-145) mmol/L Potassium 4.3 (3.5-5.1) mmol/L Chloride 99 (98-107) mmol/L Carbon Dioxide 25 (22-30) mmol/L Anion Gap 9 mmol/L BUN 8 (7-17) mg/dL Creatinine 0.53 (0.52-1.04) mg/dL Est GFR (CKD-EPI)AfAm >90 (>60 ml/min/1.73 sqM) Est GFR (CKD-EPI)NonAf >90 (>60 ml/min/1.73 sqM) Glucose 98 (74-99) mg/dL Plasma Lactic Acid Dio 1.1 (0.7-2.0) mmol/L Calcium 9.0 (8.4-10.2) mg/dL Total Bilirubin 0.6 (0.2-1.3) mg/dL AST 50 H (14-36) U/L ALT 43 H (4-34) U/L Alkaline Phosphatase 111 (38-126) U/L Total Protein 6.9 (6.3-8.2) g/dL Albumin 4.3 (3.5-5.0) g/dL Amylase 53 (30-110) U/L Lipase 61 (23-300) U/L Disposition Clinical Impression: Diverticulitis, Liver mass Disposition: HOME SELF-CARE Condition: Good Instructions (If sedation given, give patient instructions): Diverticulitis (ED) Additional Instructions: Take antibiotics as prescribed. Tylenol Motrin as needed for pain or discomfort. Increase your fluid intake. Continue Colace as necessary for any constipation. Follow-up with gastroenterology for colonoscopy within the next 6 weeks. Discussed with your primary care doctor the liver mass that was found on CT incidentally today. Return to the emergency room with any new or concerning symptoms including increased pain, inability to pass gas or persistent nausea vomiting. Prescriptions: Ciprofloxacin HCl [Cipro] 500 mg PO BID 5 Days #10 tab metroNIDAZOLE [Flagyl] 500 mg PO TID 5 Days #15 tab Is patient prescribed a controlled substance at d/c from ED?: No Referrals: Clemente Gongora MD [Primary Care Provider] - 1-2 days Time of Disposition: 00:02
[2022-03-13 22:16] LABS: Basophils % (A) 0 %; Eosinophils # (A) 0.1 k/uL (0-0.7); Eosinophils % (A) 1 %; HCT 44.5 % (34.0-46.0); HGB 15.1 gm/dL (11.4-16.0); Lymphocytes # (A) 1.1 k/uL (1.0-4.8); Lymphocytes % (A) 12 %; MCHC 33.8 g/dL (31.0-37.0); MCV 97.6 fL (80.0-100.0); Mean Platelet Volume 7.8; Monocytes # (A) 0.6 k/uL (0-1.0); Monocytes % (A) 7 %; Neutrophils % (A) 78 %; Platelet Count 354 k/uL (150-450); RBC 4.56 m/uL (3.80-5.40); WBC 9.1 k/uL (3.8-10.6)
[2022-03-13 22:33] LABS: ALT 43 U/L (4-34); AST 50 U/L (14-36); African American GFR (CKD) >90 (>60 ml/min/1.73 sqM); Albumin 4.3 g/dL (3.5-5.0); Alkaline Phosphatase 111 U/L (38-126); Amylase 53 U/L (30-110); Anion Gap 9 mmol/L; Blood Urea Nitrogen 8 mg/dL (7-17); Carbon Dioxide 25 mmol/L (22-30); Chloride 99 mmol/L (98-107); Glucose 98 mg/dL (74-99); Lipase 61 U/L (23-300); Non-African American GFR(CKD) >90 (>60 ml/min/1.73 sqM); Potassium 4.3 mmol/L (3.5-5.1); Sodium 133 mmol/L (137-145); Total Bilirubin 0.6 mg/dL (0.2-1.3); Total Protein 6.9 g/dL (6.3-8.2)
--- NOTE | 2022-03-13 23:39 | CT ---
EXAMINATION TYPE: CT abdomen pelvis w con DATE OF EXAM: 03/13/2022 COMPARISON: Chest CT scan 09/17/2019 HISTORY: lower abd pain w/ a shooting/sharp pain going from left to right. no BM in [address] DLP: 648.3 mGycm Automated exposure control for dose reduction was used. CONTRAST: Performed with IV Contrast, patient injected with 100 mL of Isovue 300. Images obtained from the diaphragm to the floor the pelvis with IV contrast. The lung bases are clear. No pleural effusion. Heart size is normal. No pericardial effusion. There i s a 5 cm hypodense area in the anterior superior right lobe of the liver. Gallbladder appears normal. The bile ducts are not dilated. Spleen is intact. There is no sign of a pancreatic mass. Stomach is intact. There is no adrenal mass. Kidneys show satisfactory contrast opacification. No hydronephrosis. Ureter s are not dilated. No retroperitoneal adenopathy. Delayed images show normal renal excretion. Abdomin al aorta is atheromatous with variable plaque formation. Bladder distends smoothly. No inguinal herni a there is fat stranding in the pelvis around the sigmoid colon. There are multiple sigmoid diverticu la. There is mild wall thickening. There is no mesenteric edema. No ascites or free air. The lumbar vertebra have fairly normal alignment. No compression fracture. There is L2-3 disc space n arrowing and endplate spur formation. No compression fracture. The bony pelvis is intact. The hip phong nts are intact. IMPRESSION: Possible subtle hypodense liver mass which is a change compared to old exam. Follow-up recommended. U ltrasound would be helpful for further evaluation if clinically indicated. Fat stranding and wall thickening of the sigmoid colon suggestive of colitis or diverticulitis. No radha wel obstruction. Moderate atherosclerotic vascular disease.
[2022-03-14] MEDS ORDERED: metroNIDAZOLE 500 MG TAB PO STA (00:05)
[2022-03-14] MEDS ORDERED: HYDROmorphone 0.5 MG/0.5 ML SYRINGE IVP STA (00:05)
[2022-03-14] MEDS ORDERED: CIPROFLOXACIN HCL 500 MG TAB PO STA (00:05)
[2022-03-14 00:26] VITALS: BP 135/87; PULSE 74; RESP 15
== END 2022-03-14 00:29 | disposition home or self-care (01) ==
LOC: EC 21:30
DX: K57.92 Diverticulitis of intestine, part unspecified, without perforation or abscess without bleeding (principal); K76.89 Other specified diseases of liver; J44.9 Chronic obstructive pulmonary disease, unspecified; F41.9 Anxiety disorder, unspecified; F32.A Depression, unspecified; F17.210 Nicotine dependence, cigarettes, uncomplicated; Z79.51 Long term (current) use of inhaled steroids; Z88.8 Allergy status to other drugs, medicaments and biological substances; Z90.49 Acquired absence of other specified parts of digestive tract
CPT/HCPCS: 36415; 80053; 82150; 83605; 83690; 85025; 74177; 99284; 96374; 96375 ×2; 96361 ×2; J3010; J1885; Q9967

== ENCOUNTER → 2022-06-25 | Outpatient (CLI) | payer OTHER ==
--- NOTE | 2022-06-26 11:00 | MR ---
EXAMINATION TYPE: MR pelvis wo/w con DATE OF EXAM: 06/25/2022 COMPARISON: Multiple CTs most recent 04/04/2022 and dating back to 03/13/2022/ CLINICAL INDICATION:Female, 62 years old with history of N83.202 ovarian cyst; Ovarian mass, abdomen/ back pain TECHNIQUE: Triplane multisequence imaging was performed of the pelvis. IV Contrast: 5 cc Gadavist FINDINGS: Reproductive: Vagina: Unremarkable. Uterus: The uterus is anteverted in position. Uterus measures 4.9 x 2.3 x 2.8 cm. The endometrium and junctional zone are within normal limits. Ovaries: The right ovary is not definitively visualized may be atrophic. The left ovary demonstrates multiple simple appearing cysts the largest measuring 3.4 cm and 3.7 cm additional smaller 2.6 cm cys t is present these all in totality elderly companion roughly 5.3 x 3.7 x 5.1 cm. MRI similar in size to 023 where it measured 4.2 x 3.7 x 6.0 cm given differences in measuring technique. Soft tissue area e xpected represent ovary is present measuring 2.1 x 1.5 x 1.6 cm. Bladder: Nondistended and grossly unremarkable. Bowel: Unremarkable as visualized. Peritoneum: A small amount of free fluid in the pelvis. Lymph nodes: No evidence of adenopathy. Vasculature: Tortuous vessels vessels are again seen in the pelvis similar to prior CT 03/13/2022. Musculoskeletal: Bone marrow signal is within normal signal intensity. Abdominal wall/soft tissues: Unremarkable. IMPRESSION: 1. Persistent left ovarian cystic lesion which could represent multiple simple cysts versus multiloc ulated cystic neoplasm. A mural nodule described on prior CT could represent the ovary. Management re delmi the same, [employer] referral management is recommended. 2. No evidence for lymphadenopathy 3. The right ovary is not visualized. 4. Tortuous vessels within the pelvis similar to prior CT finding. Could relate to pelvic congestion syndrome.
== END | disposition home or self-care (01) ==
LOC: RADMRIMAIN 14:01
PROVIDERS: ATTEND Obstetrics & Gynecology
DX: N83.202 Unspecified ovarian cyst, left side (principal); K57.30 Diverticulosis of large intestine without perforation or abscess without bleeding; Z87.19 Personal history of other diseases of the digestive system
CPT/HCPCS: 72197; A9585

== ENCOUNTER 2022-08-11 12:45 | Observation (INO) | payer OTHER ==
--- NOTE | 2022-08-11 13:21 | ED ---
General Adult HPI - General Chief complaint: Dizziness Stated complaint: syncope Time Seen by Provider: 08/11/22 13:09 Source: patient, RN notes reviewed, old records reviewed Mode of arrival: wheelchair Limitations: no limitations - History of Present Illness Initial comments: 62-year-old female presents for evaluation of lightheadedness and near syncope. Patient was started on losartan and hydrochlorothiazide within the past several days. She had felt quite lightheaded this morning and nearly passed out. There was no injury reported. The patient states she did not fully pass out but she became quite diaphoretic. She reported chest discomfort and heaviness in her left upper chest. Patient's denies previous cardiac history. She has a history of COPD and recent diagnosis of hypertension. Current chest pain or abdominal pain. - Related Data Home Medications Medication Instructions Recorded Confirmed Aspirin 325 mg PO DAILY 03/16/22 08/11/22 Albuterol Inhaler [Ventolin Hfa 2 puff INHALATION RT-Q6H PRN 08/11/22 08/11/22 Inhaler] Albuterol Nebulized [Ventolin 2.5 mg INHALATION RT-QID PRN 08/11/22 08/11/22 Nebulized] Ipratropium Nebulized [Atrovent 0.5 mg INHALATION RT-QID PRN 08/11/22 08/11/22 Nebulized 0.2 MG/ML] Losartan-Hctz 50-12.5 mg [Hyzaar 1 tab PO DAILY 08/11/22 08/11/22 50-12.5] Tiotropium 2.5 Mcg/Puff [Spiriva 1 puff INHALATION RT-DAILY 08/11/22 08/11/22 Respimat 2.5 Mcg] Previous Rx's Medication Instructions Recorded Budesonide-Formot 160-4.5 Mcg 2 puff INHALATION RT-BID #1 unit 12/01/17 [Symbicort 160-4.5 Mcg Inhaler] traMADol HCl [Ultram] 50 mg PO QID PRN #12 tab 03/18/22 Allergies Allergy/AdvReac Type Severity Reaction Status Date / Time metronidazole [From Flagyl] AdvReac NUMBNESS Verified 08/11/22 15:28 IN LEGS dust Allergy Dyspnea Uncoded 08/11/22 13:00 Review of Systems ROS Statement: Those systems with pertinent positive or pertinent negative responses have been documented in the HPI. ROS Other: All systems not noted in ROS Statement are negative. Past Medical History Past Medical History: Chest Pain / Angina, COPD, GERD/Reflux Additional Past Medical History / Comment(s): Chronic bronchitis, sinus tachycardia, chronic back pain, migraines, [place] bilaterally, bilateral tinnitis. History of Any Multi-Drug Resistant Organisms: None Reported Past Surgical History: Appendectomy, Tubal Ligation Additional Past Surgical History / Comment(s): pt states heart cath back in 2004 with no stents Past Anesthesia/Blood Transfusion Reactions: No Reported Reaction Past Psychological History: Anxiety, Depression Smoking Status: Current every day smoker Past Alcohol Use History: None Reported Past Drug Use History: None Reported - Past Family History Brother(s) Family Medical History: Coronary Artery Disease (CAD), Myocardial Infarction (NH) Additional Family Medical History / Comment(s): Brother had NH in his early 40s, pacemaker Sister(s) Family Medical History: Mitral Valve Prolapse (MVP) Father Additional Family Medical History / Comment(s): "post op mrsa infection- from complications of that" Mother Family Medical History: Cancer Additional Family Medical History / Comment(s): Lung cancer General Exam Limitations: no limitations General appearance: alert, in no apparent distress Head exam: Present: atraumatic, normocephalic Eye exam: Present: normal appearance, PERRL ENT exam: Present: normal exam Neck exam: Present: normal inspection. Absent: tenderness, meningismus Respiratory exam: Present: decreased breath sounds. Absent: respiratory distress, wheezes Cardiovascular Exam: Present: regular rate, normal rhythm GI/Abdominal exam: Present: soft. Absent: distended, tenderness, guarding Extremities exam: Present: normal inspection, normal capillary refill. Absent: pedal edema, calf tenderness Neurological exam: Present: alert, oriented X3, CN II-XII intact. Absent: motor sensory deficit Psychiatric exam: Present: normal affect, normal mood Skin exam: Present: warm, dry, intact. Absent: cyanosis, diaphoretic Course Vital Signs 08/11/22 08/11/22 08/11/22 12:54 13:59 14:00 Temperature 97.5 F L Pulse Rate 83 76 75 Respiratory 18 18 18 Rate Blood Pressure 120/73 123/83 130/80 O2 Sat by Pulse 97 Oximetry Medical Decision Making - Medical Decision Making Was pt. sent in by a medical professional or institution (ADENIKE Busch, MUSIC ENGINEER, urgent care, hospital, or halfway...) When possible be specific @ -No Did you speak to anyone other than the patient for history (EMS, parent, family, police, friend...)? What history was obtained from this source @ -[Patient's Did you review nursing and triage notes (agree or disagree)? Why? @ -I reviewed and agree with nursing and triage notes Were old charts reviewed (outside hosp., previous admission, EMS record, old EKG, old radiological studies, urgent care reports/EKG's, halfway records)? Report findings @ -No old charts were reviewed Differential Diagnosis (chest pain, altered mental status, abdominal pain women, abdominal pain men, vaginal bleeding, weakness, fever, dyspnea, syncope, headache, dizziness, GI bleed, back pain, seizure, CVA, palpatations, mental health, musculoskeletal)? @ Differential Syncope: Valvular disease, hypertrophic cardiomyopathy, pulmonary embolism, tamponade, tachycardia, bradycardia, NH, hypovolemia, hemorrhage, dissection, anemia, intracranial hemorrhage, seizure, hypoglycemia, carbon monoxide poisoning, this is not meant to be an all-inclusive list. EKG interpreted by me (3pts min.). @ -Sinus rhythm rate of 73, VT interval 120, QRS duration 105, QTC [address] segment elevation X-rays interpreted by me (1pt min.). @ -COPD without acute findings CT interpreted by me (1pt min.). @ -CT brain negative for intracranial hemorrhage or mass effect U/S interpreted by me (1pt. min.). @ -None done What testing was considered but not performed or refused? (CT, X-rays, U/S, labs)? Why? @ -None What meds were considered but not given or refused? Why? @ -None Did you discuss the management of the patient with other professionals (professionals i.e. ADENIKE Busch, MUSIC ENGINEER, lab, RT, psych nurse, social group worker, deputy director of public works, teacher, classifications officer cc/cm, window caser)? Give summary @ discussed with Dr. Gongora Was smoking cessation discussed for >3mins.? @ -No Was critical care preformed (if so, how long)? @ -No Were there social determinants of health that impacted care today? How? (Homelessness, low income, unemployed, alcoholism, drug addiction, transportation, low edu. Level, literacy, decrease access to med. care, retirement, rehab)? @ -No Was there de-escalation of care discussed even if they declined (Discuss DNR or withdrawal of care, Hospice)? DNR status @ -No What co-morbidities impacted this encounter? (DM, HTN, Smoking, COPD, CAD, Cancer, CVA, ARF, Chemo, Hep., AIDS, mental health diagnosis, sleep apnea, morbid obesity)? @ -[Hypertension, COPD Was patient admitted / discharged? Hospital course, mention meds given and route, prescriptions, significant lab abnormalities, going to OR and other pertinent info. @ -[62-year-old female presenting with near syncopal episode and left upper chest discomfort. Patient also complained of headache. Workup was initiated including EKG, chest x-ray, CT, laboratory testing. She has a elevated hemoglobin, she has a sodium of 128 and is started on normal saline. She has a negative initial troponin. CAT scan and chest x-ray are unremarkable. Patient will be observed on telemetry overnight. She will have serial cardiac enzymes, echo, cardiology consultation. Undiagnosed new problem with uncertain prognosis? @ -No Drug Therapy requiring intensive monitoring for toxicity (Heparin, Nitro, Insulin, Cardizem)? @ -No Were any procedures done? @ -No Diagnosis/symptom? @ -Syncope, chest pain Acute, or Chronic, or Acute on Chronic? @ -Acute Uncomplicated (without systemic symptoms) or Complicated (systemic symptoms)? @ -default Side effects of treatment? @ -No Exacerbation, Progression, or Severe Exacerbation? @ -No Poses a threat to life or bodily function? How? (Chest pain, USA, NH, pneumonia, PE, COPD, DKA, ARF, appy, cholecystitis, CVA, Diverticulitis, Homicidal, Suicidal, threat to staff... and all critical care pts) @ -Yes, chest pain - Lab Data Result diagrams: 08/11/22 13:20 08/11/22 13:20 Lab Results 08/11/22 08/11/22 08/11/22 Range/Units 13:20 13:20 13:20 WBC 6.5 (3.8-10.6) k/uL RBC 5.28 (3.80-5.40) m/uL Hgb 17.3 H (11.4-16.0) gm/dL Hct 52.6 H (34.0-46.0) % MCV 99.7 (80.0-100.0) fL MCH 32.8 (25.0-35.0) pg MCHC 32.9 (31.0-37.0) g/dL RDW 12.1 (11.5-15.5) % Plt Count 406 (150-450) k/uL MPV 7.4 Neutrophils % 52 % Lymphocytes % 37 % Monocytes % 6 % Eosinophils % 2 % Basophils % 1 % Neutrophils # 3.4 (1.3-7.7) k/uL Lymphocytes # 2.4 (1.0-4.8) k/uL Monocytes # 0.4 (0-1.0) k/uL Eosinophils # 0.2 (0-0.7) k/uL Basophils # 0.1 (0-0.2) k/uL Sodium 126 L (137-145) mmol/L Potassium 4.7 (3.5-5.1) mmol/L Chloride 91 L (98-107) mmol/L Carbon Dioxide 24 (22-30) mmol/L Anion Gap 11 mmol/L BUN 11 (7-17) mg/dL Creatinine 0.55 (0.52-1.04) mg/dL Est GFR (CKD-EPI)AfAm >90 (>60 ml/min/1.73 sqM) Est GFR (CKD-EPI)NonAf >90 (>60 ml/min/1.73 sqM) Glucose 101 H (74-99) mg/dL POC Glucose (mg/dL) (70-110) mg/dL POC Glu Manager Sterile ID Calcium 9.6 (8.4-10.2) mg/dL Total Bilirubin 1.2 (0.2-1.3) mg/dL AST 31 (14-36) U/L ALT 21 (4-34) U/L Alkaline Phosphatase 92 (38-126) U/L Troponin I (0.000-0.034) ng/mL Total Protein 7.3 (6.3-8.2) g/dL Albumin 4.5 (3.5-5.0) g/dL Urine Color Light Yellow Urine Appearance Clear (Clear) Urine pH 7.0 (5.0-8.0) Ur Specific [place] 1.011 (1.001-1.035) Urine Protein Negative (Negative) Urine Glucose (UA) Negative (Negative) Urine Ketones Negative (Negative) Urine Blood Negative (Negative) Urine Nitrite Negative (Negative) Urine Bilirubin Negative (Negative) Urine Urobilinogen <2.0 (<2.0) mg/dL Ur Leukocyte Esterase Negative (Negative) Influenza Type A (PCR) (Not Detectd) Influenza Type B (PCR) (Not Detectd) RSV (PCR) (Not Detectd) SARS-CoV-2 (PCR) (Not Detectd) 08/11/22 08/11/22 08/11/22 Range/Units 13:20 13:20 13:36 WBC (3.8-10.6) k/uL RBC (3.80-5.40) m/uL Hgb (11.4-16.0) gm/dL Hct (34.0-46.0) % MCV (80.0-100.0) fL MCH (25.0-35.0) pg MCHC (31.0-37.0) g/dL RDW (11.5-15.5) % Plt Count (150-450) k/uL MPV Neutrophils % % Lymphocytes % % Monocytes % % Eosinophils % % Basophils % % Neutrophils # (1.3-7.7) k/uL Lymphocytes # (1.0-4.8) k/uL Monocytes # (0-1.0) k/uL Eosinophils # (0-0.7) k/uL Basophils # (0-0.2) k/uL Sodium (137-145) mmol/L Potassium (3.5-5.1) mmol/L Chloride (98-107) mmol/L Carbon Dioxide (22-30) mmol/L Anion Gap mmol/L BUN (7-17) mg/dL Creatinine (0.52-1.04) mg/dL Est GFR (CKD-EPI)AfAm (>60 ml/min/1.73 sqM) Est GFR (CKD-EPI)NonAf (>60 ml/min/1.73 sqM) Glucose (74-99) mg/dL POC Glucose (mg/dL) 100 (70-110) mg/dL POC Glu Manager Sterile ID Tavo, Arianne Calcium (8.4-10.2) mg/dL Total Bilirubin (0.2-1.3) mg/dL AST (14-36) U/L ALT (4-34) U/L Alkaline Phosphatase (38-126) U/L Troponin I <0.012 (0.000-0.034) ng/mL Total Protein (6.3-8.2) g/dL Albumin (3.5-5.0) g/dL Urine Color Urine Appearance (Clear) Urine pH (5.0-8.0) Ur Specific [place] (1.001-1.035) Urine Protein (Negative) Urine Glucose (UA) (Negative) Urine Ketones (Negative) Urine Blood (Negative) Urine Nitrite (Negative) Urine Bilirubin (Negative) Urine Urobilinogen (<2.0) mg/dL Ur Leukocyte Esterase (Negative) Influenza Type A (PCR) Not Detected (Not Detectd) Influenza Type B (PCR) Not Detected (Not Detectd) RSV (PCR) Not Detected (Not Detectd) SARS-CoV-2 (PCR) Not Detected (Not Detectd) Disposition Clinical Impression: Chest pain, Syncope Disposition: ADMITTED IP TO THIS HOSP Condition: Stable Is patient prescribed a controlled substance at d/c from ED?: No Referrals: Clemente Gongora MD [Primary Care Provider] - 1-2 days Time of Disposition: 15:40
[2022-08-11 13:39] LABS: Glucose,Whole Blood 100 mg/dL (70-110)
[2022-08-11 13:42] LABS: Basophils # (A) 0.1 k/uL (0-0.2); Basophils % (A) 1 %; Eosinophils # (A) 0.2 k/uL (0-0.7); Eosinophils % (A) 2 %; HCT 52.6 % (34.0-46.0); HGB 17.3 gm/dL (11.4-16.0); Lymphocytes # (A) 2.4 k/uL (1.0-4.8); Lymphocytes % (A) 37 %; MCH 32.8 pg (25.0-35.0); MCHC 32.9 g/dL (31.0-37.0); MCV 99.7 fL (80.0-100.0); Mean Platelet Volume 7.4; Monocytes # (A) 0.4 k/uL (0-1.0); Monocytes % (A) 6 %; Neutrophils # (A) 3.4 k/uL (1.3-7.7); Neutrophils % (A) 52 %; Platelet Count 406 k/uL (150-450); RBC 5.28 m/uL (3.80-5.40); RDW 12.1 % (11.5-15.5); WBC 6.5 k/uL (3.8-10.6)
[2022-08-11 13:53] LABS: ALT 21 U/L (4-34); African American GFR (CKD) >90 (>60 ml/min/1.73 sqM); Albumin 4.5 g/dL (3.5-5.0); Anion Gap 11 mmol/L; Blood Urea Nitrogen 11 mg/dL (7-17); Calcium 9.6 mg/dL (8.4-10.2); Carbon Dioxide 24 mmol/L (22-30); Chloride 91 mmol/L (98-107); Glucose 101 mg/dL (74-99); Non-African American GFR(CKD) >90 (>60 ml/min/1.73 sqM); Sodium 126 mmol/L (137-145); Total Bilirubin 1.2 mg/dL (0.2-1.3); Total Protein 7.3 g/dL (6.3-8.2)
[2022-08-11 14:01] LABS: AST 31 U/L (14-36); Alkaline Phosphatase 92 U/L (38-126); Potassium 4.7 mmol/L (3.5-5.1)
[2022-08-11 14:13] LABS: Appearance,Urine Clear (Clear); Bilirubin,Urine Negative (Negative); Blood,Urine Negative (Negative); Color,Urine Light Yellow; Glucose,Urine (UA) Negative (Negative); Ketones,Urine Negative (Negative); Leukocyte Esterase,Urine Negative (Negative); Nitrite,Urine Negative (Negative); Protein,Urine Negative (Negative); Specific Gravity,Urine 1.011 (1.001-1.035); Urobilinogen,Urine <2.0 mg/dL (<2.0)
--- NOTE | 2022-08-11 14:21 | XR ---
EXAMINATION TYPE: XR chest 2V DATE OF EXAM: 08/11/2022 2:17 PM COMPARISON: Chest radiographs from 03/26/2021 TECHNIQUE: XR chest 2V Frontal and lateral views of the chest. CLINICAL INDICATION:Female, 62 years old with history of dizziness; FINDINGS: Lungs/Pleura: No evidence of focal consolidation or pneumothorax. Blunting of the costophrenic angles is present. Pulmonary vascularity: Unremarkable. Heart/mediastinum: Cardiomediastinal silhouette is unremarkable. Musculoskeletal: No acute osseous pathology. IMPRESSION: 1. No acute cardiopulmonary disease process. 2. COPD changes.
[2022-08-11] MEDS ORDERED: SODIUM CHLORIDE 0.9% 500 ML 500 ML IV ONE (14:40)
[2022-08-11] MEDS: SODIUM CHLORIDE 0.9% 1,000 ML IV SCH ×2 (14:42→14:44)
--- NOTE | 2022-08-11 15:00 | CT ---
EXAMINATION TYPE: CT brain wo con CT DLP: 1114.4 mGycm, Automated exposure control for dose reduction was used. DATE OF EXAM: 08/11/2022 2:56 PM COMPARISON: None. CLINICAL INDICATION:Female, 62 years old with history of FLEMING, syncope, dizziness TECHNIQUE: Brain: Axial CT images of the brain were obtained with coronal and sagittal reformats created and rev iewed. Contrast used: None. Oral contrast used: None. FINDINGS: Brain: Extra-axial spaces: No abnormal extra-axial fluid collections. Ventricular system: Dilatation in proportion to cerebral atrophy. Cerebral parenchyma: Cerebral atrophy. No acute intraparenchymal hemorrhage or mass effect. The jacob -white junction is well differentiated. Scattered hypoattenuating areas are seen within the white mat ter. Cerebellum: Unremarkable. Mass effect: No evidence of midline shift. Intracranial vasculature: Atherosclerotic calcifications of the intracranial vessels. Soft tissues: Normal. Calvarium/osseous structures: No depressed skull fracture. Paranasal sinuses and mastoid air cells: Mild scattered paranasal sinus disease. Visualized orbits: Orbital contents are intact. IMPRESSION: 1. No acute intracranial process. 2. Nonspecific white matter changes, likely secondary to chronic small vessel ischemic disease.
[2022-08-11] MEDS ORDERED: ACETAMINOPHEN TAB 325 MG TAB PO PRN (15:37)
[2022-08-11] MEDS ORDERED: NALOXONE 0.4 MG/ML 1 ML VIAL IV PRN (15:37)
[2022-08-11] MEDS ORDERED: traMADol 50 MG TAB PO PRN (17:45)
[2022-08-11] MEDS ORDERED: IPRATROPIUM 0.5 MG/2.5 ML NEBU INHALATION PRN (17:45)
[2022-08-11] MEDS: IPRATROPIUM-ALBUTEROL 3 ML NEB INHALATION SCH (19:49)
[2022-08-11] MEDS: SYMBICORT 160-4.5 MCG INHALER INHALATION SCH (19:49)
--- NOTE | 2022-08-11 21:36 | CT ---
6 EXAMINATION TYPE: CT chest angio for PE DATE OF EXAM: 08/11/2022 COMPARISON: September 17, 2019 HISTORY: Elevated D-dimer. CT DLP: 221.1 mGycm CONTRAST: CT chest with contrast and 3D reconstruction with MIP imaging is performed with IV Contrast, patient injected with 100 ml mL of Isovue 370. Contrast-enhanced CT of the chest was performed through the course of the pulmonary arteries with violeta g and mediastinal window settings submitted. 3D reconstruction with MIP imaging was also performed. PULMONARY ARTERIES: The pulmonary arteries and their major tributaries are patent. I do not see flora dence for sizable filling defect to suggest pulmonary embolic process. LUNGS: There is upper lobe centrilobular emphysema noted. Again identified is a focal area of the int erstitial prominence with focal postinflammatory change and scarring right upper lobe. No focal conso lidation to suggest pneumonia. There is a pulmonary nodule along the right minor fissure measuring 8. 8 mm image 81 sequence 606 versus prior measurement of 5 mm. Follow-up CT in 3 months is advised. No pleural effusion noted. MEDIASTINUM: Thoracic aorta is of normal caliber,however, evaluation is limited given timing of the contrast bolus. If there is concern for thoracic aortic pathology consider ASHWIN. Correlate clinicall y . The heart is not enlarged. No evidence for mediastinal mass. No mediastinal lymph nodes greater than 1cm. HILAR STRUCTURES: No evidence for mass. No hilar lymph nodes greater than 1 cm. UPPER ABDOMEN: No significant abnormality is seen. IMPRESSION: 1. No evidence for Pulmonary embolism at this time. 2. Pulmonary nodule right middle lobe as discussed above is nonspecific and three-month follow-up is recommended. 2. Postinflammatory changes right upper lobe as discussed.
--- NOTE | 2022-08-12 02:30 | HP ---
HISTORY AND PHYSICAL HISTORY OF PRESENT ILLNESS: This 62-year-old white female came in with lightheadedness, near syncope, is on losartan with hydrochlorothiazide for past several days, lightheaded, dizzy and passed out, slightly low sodium, diaphoretic, heaviness in the left upper chest. Denies any cardiac history. History of COPD, hypertension. HOME MEDICINES: 1. Aspirin. 2. Symbicort. 3. Spiriva inhalers. 4. Albuterol updrafts. 5. Tramadol for pain 50 q.i.d. REVIEW OF SYSTEMS: A 14-point review of systems otherwise negative. PAST MEDICAL HISTORY: Chest pain, angina, COPD, GERD, and migraines. SURGICAL HISTORY: Appendectomy, tubal ligation. SOCIAL HISTORY: Current everyday smoker. FAMILY HISTORY: Heart disease in the family with a brother. Father, MRSA infection. Mother, lung cancer. PHYSICAL EXAMINATION: VITAL SIGNS: Temp 97.5, pulse 75 to 83, respiratory rate 16 to 18, blood pressure 120s over 80s, and O2 97. CARDIOVASCULAR: S1, S2. LUNGS: Transmitted upper sounds. GI: Soft, nontender. SKIN: Dry, decreased skin turgor. HEENT: Head normocephalic, atraumatic. PSYCH: Fair mood and affect. LABS: Reviewed. ASSESSMENT AND PLAN: Hyponatremia, COPD, syncope of unclear etiology, near-syncope. Monitor, get Cardiology evaluation. Rehydrate. Hold lisinopril with the hydrochlorothiazide at this time due to hyponatremia, updrafts for polycythemia, COPD, nicotine addiction. CAT scan of the chest. Prognosis guarded. MMODL / IJN: [id number] /
[2022-08-12 03:04] VITALS: RESP 16
[2022-08-12] MEDS ORDERED: NON FORMULARY DRUG (Tiotropium 2.5 Mcg/Puff 10 PUFF Each) INHALATION SCH (08:00)
[2022-08-12] MEDS ORDERED: SODIUM CHLORIDE 0.9% 1,000 ML IV SCH (08:45)
[2022-08-12] MEDS: IPRATROPIUM-ALBUTEROL 3 ML NEB INHALATION SCH ×3 (08:48→15:59)
[2022-08-12] MEDS: SYMBICORT 160-4.5 MCG INHALER INHALATION SCH (08:48)
[2022-08-12] MEDS ORDERED: ASPIRIN 325 MG TAB PO SCH (09:00)
[2022-08-12 11:12] LABS: HCT 47.2 % (37.2-46.3); HGB 15.7 d/dL (12.0-15.0); MCH 32.8 pg (27.0-32.0); MCHC 33.3 d/dL (32.0-37.0); MCV 98.5 FL (80.0-97.0); Mean Platelet Volume 9.6 FL (9.5-12.2); NRBC Per 100 WBC 0 X 10*3/uL (0.00-0.01); Platelet Count 361 X 10*3/uL (140-440); RBC 4.79 X 10*6/uL (4.10-5.20); RDW 12.2 % (11.5-14.5); WBC 5.96 X 10*3/uL (4.50-10.00)
[2022-08-12 11:13] LABS: Basophils # (A) 0.08 X 10*3/uL (0.00-0.10); Basophils % (A) 1.3 %; Eosinophils # (A) 0.13 X 10*3/uL (0.04-0.35); Eosinophils % (A) 2.2 %; Lymphocytes # (A) 1.91 X 10*3/uL (0.90-5.00); Monocytes # (A) 0.71 X 10*3/uL (0.20-1.00); Monocytes % (A) 11.9 %; Neutrophils # (A) 3.11 X 10*3/uL (1.80-7.70); Neutrophils % (A) 52.3 %
[2022-08-12 11:19] LABS: ALT 16 U/L (8-44); AST 13 U/L (13-35); Albumin 4.1 d/dL (3.8-4.9); Albumin/Globulin Ratio 2.28 Ratio (1.60-3.17); Alkaline Phosphatase 87 U/L (41-126); BUN/Creat Ratio 19.67 Ratio (12.00-20.00); Blood Urea Nitrogen 11.8 mg/dL (9.0-27.0); Calcium 9.5 mg/dL (8.7-10.3); Chloride 97 mmol/L (96-109); Globulin 1.8 d/dL (1.6-3.3); Glucose 105 mg/dL (70-110); Potassium 4.9 mmol/L (3.5-5.5); Sodium 131 mmol/L (135-145); Total Bilirubin 0.3 mg/dL (0.3-1.2); Total Protein 5.9 d/dL (6.2-8.2)
--- NOTE | 2022-08-12 13:12 | CA ---
Transthoracic Echo Report Name: Marisel Cummins Age: 62 Gender: F : 1960 Exam Date: 08/12/2022 10:16 Exam Location: [facility] Ht (in): 68 Wt (lb): 120 Ordering Physician: Myles Prado MD Attending/Referring Phys: [id number], Eve Mail Manager Jyoti Ohara RDCS Procedure CPT: Indications: Syncope Cardiac Hx: Technical Quality: Good Contrast 1: Total Dose (mL): Contrast 2: Total Dose (mL): MEASUREMENTS (Male / Female) Normal Values 2D ECHO LV Diastolic Diameter PLAX 4.0 cm 4.2 - 5.9 / 3.9 - 5.3 cm LV Systolic Diameter PLAX 2.0 cm IVS Diastolic Thickness 1.0 cm 0.6 - 1.0 / 0.6 - 0.9 cm LVPW Diastolic Thickness 1.0 cm 0.6 - 1.0 / 0.6 - 0.9 cm LV Relative Wall Thickness 0.5 RV Internal Dim ED PLAX 3.2 cm LA Systolic Diameter LX 2.6 cm 3.0 - 4.0 / 2.7 - 3.8 cm LV Diastolic Volume MOD 4C 54.4 cm??? LV Systolic Volume MOD 4C 23.1 cm??? LV Ejection Fraction MOD 4C 57.5 % LV Cardiac Index MOD 4C 1540.1 cm???/min???m??? LV Diastolic Length 4C 7.3 cm LV Systolic Length 4C 6.2 cm LV Diastolic Volume MOD 2C 29.5 cm??? LV Systolic Volume MOD 2C 7.9 cm??? LV Ejection Fraction MOD 2C 73.3 % LV Cardiac Index MOD 2C 1063.2 cm???/min???m??? LV Diastolic Length 2C 7.2 cm LV Systolic Length 2C 6.1 cm LA Volume 33.8 cm??? 18 - 58 / 22 - 52 cm??? M-MODE Aortic Root Diameter MM 2.9 cm MV E Point Septal Separation 0.6 cm AV Cusp Separation MM 2.1 cm DOPPLER AV Peak Velocity 101.6 cm/s AV Peak Gradient 4.1 mmHg MV Area PHT 2.6 cm??? Mitral E Point Velocity 65.9 cm/s Mitral A Point Velocity 78.3 cm/s Mitral E to A Ratio 0.8 MV Deceleration Time 293.3 ms MV E' Velocity 8.8 cm/s Mitral E to MV E' Ratio 7.5 TR Peak Velocity 219.4 cm/s TR Peak Gradient 19.3 mmHg Right Ventricular Systolic Press 23.1 mmHg FINDINGS Left Ventricle Left ventricular ejection fraction is estimated at 55-60 %. Left ventricular cavity size normal. Mildly increased septal wall thickness. Mildly increased posterior wall thickness. Normal left ventricular wall motion. Right Ventricle Normal right ventricular size and function. Right ventricular systolic pressure within normal limits. Right Atrium Normal right atrial size. Left Atrium Normal left atrial size. Mitral Valve Structurally normal mitral valve. Trace mitral regurgitation. Aortic Valve Trileaflet aortic valve. No aortic valve stenosis or regurgitation. Tricuspid Valve Structurally normal tricuspid valve. Mild tricuspid regurgitation. Pulmonic Valve Structurally normal pulmonic valve. Pericardium Normal pericardium. No pericardial effusion. Aorta Normal size aortic root and proximal ascending aorta. CONCLUSIONS Normal LV size and systolic function with mild concentric LVH. Mild mitral and tricuspid regurgitation. No significant pulmonary hypertension no pericardial effusion Previewed by: Dr. Jose Luis Lipscomb MD (Electronically Signed) Final Date: 12 August 2022 13:11
[2022-08-12 13:18] VITALS: BMI 18.2
--- NOTE | 2022-08-12 14:20 | CONS ---
CONSULTATION HISTORY OF PRESENT ILLNESS: This is a 62-year-old lady with a history of hypertension, whose recent medications were changed. She was placed on losartan HCTZ and then she came into the hospital complaining of dizziness, lightheadedness. She really did not have any syncope. She had a feeling of lightheadedness as if she was going to pass out. She believes these symptoms have started after she started taking the losartan HCTZ 50/12.5 combination. She is comfortable resting. Orthostatic changes, blood pressure is about 128/80. No significant change. I am recommending that she should not take the hydrochlorothiazide component, take only losartan 50 mg at bedtime and we will increase activity, and see how she does. I will also do an echocardiogram to assess LV function. This patient did not have syncope. She has borderline hypertension on losartan and had a cardiac cath sometime in 2004 with no significant disease. She is resting comfortably without symptoms. Unfortunately, she continues to smoke. She has no chest pain or shortness of breath or dizziness or lightheadedness at the time of my evaluation. PAST MEDICAL HISTORY: History of migraine headaches, tinnitus, gastroesophageal reflux disease. The patient is a smoker and was counseled to quit smoking. MEDICATIONS: Medications at home include losartan HCTZ 50/12.5. She also takes albuterol inhaler and aspirin. PHYSICAL EXAMINATION: VITAL SIGNS: Blood pressure is 128/78. No orthostatic changes. HEENT: Unremarkable. Fundus was not examined by me. NECK: Supple. No JVD. I do not hear a carotid bruit. There is no thyromegaly. HEART: Reveals S1, S2 heard normally. No rub, murmur or gallop. LUNGS: Clear. ABDOMEN: Soft, nontender. MUSCULOSKELETAL: Lower extremity reveals normal pulses. No edema. CENTRAL NERVOUS SYSTEM: Normal. DIAGNOSTIC DATA: EKG revealed sinus mechanism, no acute changes. LABORATORY DATA: Revealed no significant abnormalities. Troponins are normal. IMPRESSION: 1. Near syncope. 2. Hypertension, borderline. 3. No evidence to suggest ongoing myocardial ischemia. RECOMMENDATIONS: I am recommending that we switch her to losartan 50 mg without hydrochlorothiazide to be given at bedtime. Cautious hydration, echocardiogram and can be discharged later on today. Thank you very much for the consult. MMODL / IJN: [id number] /
[2022-08-12 15:50] VITALS: BP 127/80; PULSE 85; TEMP 98.3
[2022-08-12] MEDS: SODIUM CHLORIDE 0.9% 1,000 ML IV SCH (18:31)
--- NOTE | 2022-08-12 20:30 | DS ---
DISCHARGE SUMMARY HISTORY OF PRESENT ILLNESS: A 62-year-old white female came in with chest pain, syncope, dehydration, hyponatremia, COPD exacerbation, we rehydrated her. Her sodium went from 126 to 131 on discharge. We are going to take out hydrochlorothiazide out of her Hyzaar to give Cozaar 50 mg at home for blood pressure and remain on inhalers, Symbicort, Spiriva as well as albuterol and ipratropium bromide updrafts q.6 p.r.n. CONDITION: Stable. PROGNOSIS: Guarded. Follow up in office in a week. Ambulate as tolerated. MMODL / IJN: [id number] /
[2022-08-12] MEDS ORDERED: LOSARTAN 50 MG TAB PO SCH (21:00)
== END 2022-08-12 18:42 | disposition home or self-care (01) ==
LOC: EC 12:45 → 6NMEDSUR 15:38
PROVIDERS: ADMIT Family Medicine; ATTEND Family Medicine
DX: R07.89 Other chest pain (principal); J44.1 Chronic obstructive pulmonary disease with (acute) exacerbation; E87.1 Hypo-osmolality and hyponatremia; E86.0 Dehydration; R55 Syncope and collapse; I10 Essential (primary) hypertension; I08.1 Rheumatic disorders of both mitral and tricuspid valves; K21.9 Gastro-esophageal reflux disease without esophagitis; G43.909 Migraine, unspecified, not intractable, without status migrainosus; G89.29 Other chronic pain; M54.9 Dorsalgia, unspecified; H91.93 Unspecified hearing loss, bilateral; H93.13 Tinnitus, bilateral; F32.A Depression, unspecified; F41.9 Anxiety disorder, unspecified; D75.1 Secondary polycythemia; R91.1 Solitary pulmonary nodule; Z71.6 Tobacco abuse counseling; F17.200 Nicotine dependence, unspecified, uncomplicated; Z79.82 Long term (current) use of aspirin; Z79.51 Long term (current) use of inhaled steroids; Z88.1 Allergy status to other antibiotic agents; Z91.048 Other nonmedicinal substance allergy status; Z98.51 Tubal ligation status; Z90.49 Acquired absence of other specified parts of digestive tract; Z98.890 Other specified postprocedural states; Z82.49 Family history of ischemic heart disease and other diseases of the circulatory system; Z80.1 Family history of malignant neoplasm of trachea, bronchus and lung; Z83.1 Family history of other infectious and parasitic diseases
CPT/HCPCS: 96361 ×3; 96360; 99285; 36415; 94640 ×3; 93005; 93306; 85379; 80053 ×2; 84484; 85025 ×2; 81003; 87636; 71046; 70450; 71275; G0378 ×2; Q9967

== ENCOUNTER → 2022-10-18 | Outpatient (CLI) | payer OTHER ==
--- NOTE | 2022-10-19 10:06 | CT ---
EXAMINATION TYPE: CT thoracic spine wo con CT DLP: 484.90 mGycm, Automated exposure control for dose reduction was used. DATE OF EXAM: 10/18/2022 3:46 PM COMPARISON: 08/11/2022. CLINICAL INDICATION:Female, 62 years old with history of M54.14 RADICULOPATHY, THORACIC REGION; PHH, UPPER BACK PAIN. HX OF THORACIC FX. TECHNIQUE: Axial images of the thoracic spine were obtained without contrast. Coronal and sagittal re formats were performed. FINDINGS: Multilevel degeneration changes are seen throughout the thoracic spine is diffuse osseous d emineralization. T7 Schmorl's node at the inferior endplate is prominent. Mild wedging of the T7 vert ebra is also present. No evidence for acute fracture at this time. Additional scattered Schmorl's nod es are present. No evidence for significant spinal canal or neural foraminal stenosis. Increased reticulation and interstitial prominence most pronounced in the right upper lobe. There is moderate emphysema changes. No obvious pulmonary nodule visualized. IMPRESSION: 1. No spinal canal or neural foraminal stenosis is identified. 2. T7 inferior endplate Schmorl's node. There is mild wedging of the T7 vertebrae also present. 3. Moderate emphysema changes, consider enrolling this patient in low dose lung cancer screening arabella turner.
== END | disposition home or self-care (01) ==
LOC: RADCTMAIN 15:26
PROVIDERS: ATTEND Family Medicine
DX: M54.14 Radiculopathy, thoracic region (principal); J43.9 Emphysema, unspecified; M48.54XA Collapsed vertebra, not elsewhere classified, thoracic region, initial encounter for fracture
CPT/HCPCS: 72128

== ENCOUNTER 2022-10-30 10:42 | Emergency (ER) | payer OTHER ==
[2022-10-30 11:14] VITALS: TEMP 98.4
[2022-10-30] MEDS ORDERED: SODIUM CHLORIDE 0.9% 500 ML 500 ML IV STA (12:37)
[2022-10-30] MEDS ORDERED: MORPHINE SULFATE 4 MG/ML SYRINGE IV STA (12:37)
[2022-10-30 13:07] LABS: Basophils % (A) 1 %; Eosinophils # (A) 0.1 k/uL (0-0.7); Eosinophils % (A) 1 %; HCT 54.1 % (34.0-46.0); HGB 17.6 gm/dL (11.4-16.0); Lymphocytes # (A) 1.9 k/uL (1.0-4.8); Lymphocytes % (A) 26 %; MCH 33.5 pg (25.0-35.0); MCHC 32.6 g/dL (31.0-37.0); MCV 102.7 fL (80.0-100.0); Macrocytosis Slight; Mean Platelet Volume 8.2; Monocytes # (A) 0.5 k/uL (0-1.0); Monocytes % (A) 6 %; Neutrophils # (A) 4.6 k/uL (1.3-7.7); Neutrophils % (A) 64 %; Platelet Count 389 k/uL (150-450); RBC 5.27 m/uL (3.80-5.40); RDW 12.9 % (11.5-15.5); WBC 7.2 k/uL (3.8-10.6)
[2022-10-30 13:33] LABS: ALT 26 U/L (4-34); AST 35 U/L (14-36); African American GFR (CKD) >90 (>60 ml/min/1.73 sqM); Albumin 4.9 g/dL (3.5-5.0); Alkaline Phosphatase 76 U/L (38-126); Anion Gap 7 mmol/L; Blood Urea Nitrogen 10 mg/dL (7-17); Calcium 10.6 mg/dL (8.4-10.2); Carbon Dioxide 29 mmol/L (22-30); Chloride 96 mmol/L (98-107); Glucose 110 mg/dL (74-99); Non-African American GFR(CKD) >90 (>60 ml/min/1.73 sqM); Sodium 132 mmol/L (137-145); Total Bilirubin 0.8 mg/dL (0.2-1.3); Total Protein 7.8 g/dL (6.3-8.2)
[2022-10-30 13:39] LABS: Potassium 6.3 mmol/L (3.5-5.1)
--- NOTE | 2022-10-30 13:43 | US ---
EXAMINATION TYPE: US venous doppler duplex LE LT DATE OF EXAM: 10/30/2022 1:28 PM COMPARISON: NONE CLINICAL INDICATION: Female, 62 years old with history of leg pain; pain in left calf that is going u p the leg, h/o arterial disease and cold foot, no h/o dvt SIDE PERFORMED: Left TECHNIQUE: The lower extremity deep venous system is examined utilizing real time linear array sonog joann with graded compression, doppler sonography and color-flow sonography. VESSELS IMAGED: Common Femoral Vein Deep Femoral Vein Greater Saphenous Vein * Femoral Vein Popliteal Vein Left Leg: Negative for DVT IMPRESSION: Grayscale, color doppler, spectral doppler imaging performed of the deep veins of the lo wer extremities. There is normal flow, compressibility, vascular waveforms.
[2022-10-30] MEDS ORDERED: SODIUM CHLORIDE 0.9% 1,000 ML IV ONE (13:46)
[2022-10-30] MEDS ORDERED: MORPHINE SULFATE 4 MG/ML SYRINGE IVP STA (14:19)
[2022-10-30 14:25] VITALS: BP 145/82
[2022-10-30] MEDS ORDERED: methylPREDNISolone SOD SUCCI 125 MG/2 ML VIAL IV STA (15:25)
[2022-10-30] MEDS ORDERED: ORPHENADRINE 30 MG/ML 2 ML VIAL IM STA (15:25)
[2022-10-30 16:29] LABS: African American GFR (CKD) >90 (>60 ml/min/1.73 sqM); Anion Gap 6 mmol/L; Blood Urea Nitrogen 7 mg/dL (7-17); Calcium 8.8 mg/dL (8.4-10.2); Carbon Dioxide 25 mmol/L (22-30); Chloride 101 mmol/L (98-107); Glucose 91 mg/dL (74-99); Non-African American GFR(CKD) >90 (>60 ml/min/1.73 sqM); Potassium 4.8 mmol/L (3.5-5.1); Sodium 132 mmol/L (137-145)
--- NOTE | 2022-10-30 17:43 | ED ---
Lower Extremity Injury HPI - General Chief Complaint: Extremity Injury, Lower Stated Complaint: leg pain Time Seen by Provider: 10/30/22 12:02 Source: patient Mode of arrival: ambulatory Limitations: no limitations - History of Present Illness Initial Comments: This patient is 62-year-old woman complaining of pain to the left leg. She states that the pain is been present in the lower portion the leg around the calf and below the knee for 1-2 weeks. She does not recall any inciting injury. She states that it more recently has seemed to be up the back of the thigh. When the pain was worse this morning she felt she she did be seen here. The patient stated that she was concerned there may be a problem with the circulation, as a previous CAT scan and showed some narrowing of the left leg artery, she's not sure what level, but it was seen in the pelvis. She states she was instructed that they would deal with that problem once they dealt with an ovarian mass that she is scheduled to have surgery for a near future. The patient also notes that there is some numbness and tingling to the posterior of the left leg. She states at times there feels like some weakness of the leg. She has not had saddle anesthesia. No change in bladder or bowel function. MD Complaint: other -: week(s) Injury: Leg: Left Place: home Severity: severe Improves With: nothing Worsens With: movement, palpation, other (Leg extension) - Related Data Home Medications Medication Instructions Recorded Confirmed Aspirin 325 mg PO DAILY 03/16/22 08/11/22 Albuterol Inhaler [Ventolin Hfa 2 puff INHALATION RT-Q6H PRN 08/11/22 08/11/22 Inhaler] Albuterol Nebulized [Ventolin 2.5 mg INHALATION RT-QID PRN 08/11/22 08/11/22 Nebulized] Ipratropium Nebulized [Atrovent 0.5 mg INHALATION RT-QID PRN 08/11/22 08/11/22 Nebulized 0.2 MG/ML] Tiotropium 2.5 Mcg/Puff [Spiriva 1 puff INHALATION RT-DAILY 08/11/22 08/11/22 Respimat 2.5 Mcg] Previous Rx's Medication Instructions Recorded Budesonide-Formot 160-4.5 Mcg 2 puff INHALATION RT-BID #1 unit 12/01/17 [Symbicort 160-4.5 Mcg Inhaler] traMADol HCl [Ultram] 50 mg PO QID PRN #12 tab 03/18/22 Losartan [Cozaar] 50 mg PO HS 90 Days #90 tab 08/12/22 HYDROcodone/APAP 5-325MG [[place] 1 tab PO Q6H PRN 3 Days #12 tab 10/30/22 5-325] methocarbamoL [Robaxin-750] 750 mg PO TID PRN #21 tab 10/30/22 predniSONE [Deltasone] 20 mg PO BID #8 tab 10/30/22 Allergies Allergy/AdvReac Type Severity Reaction Status Date / Time metronidazole [From Flagyl] AdvReac NUMBNESS Verified 10/30/22 11:12 IN LEGS dust Allergy Dyspnea Uncoded 10/30/22 11:12 Review of Systems ROS Statement: Those systems with pertinent positive or pertinent negative responses have been documented in the HPI. ROS Other: All systems not noted in ROS Statement are negative. Constitutional: Denies: fever, weakness Respiratory: Denies: cough, dyspnea, hemoptysis Cardiovascular: Denies: chest pain, palpitations, edema, syncope Gastrointestinal: Denies: abdominal pain, vomiting, diarrhea Genitourinary: Denies: dysuria, hematuria Musculoskeletal: Reports: as per HPI. Denies: back pain Skin: Denies: rash Neurological: Reports: numbness, paresthesias. Denies: headache, weakness, abnormal gait Past Medical History Past Medical History: Chest Pain / Angina, COPD, GERD/Reflux Additional Past Medical History / Comment(s): Chronic bronchitis, sinus tachycardia, chronic back pain, migraines, JAMUL bilaterally, bilateral tinnitis. History of Any Multi-Drug Resistant Organisms: None Reported Past Surgical History: Appendectomy, Tubal Ligation Additional Past Surgical History / Comment(s): pt states heart cath back in 2004 with no stents Past Anesthesia/Blood Transfusion Reactions: No Reported Reaction Past Psychological History: Anxiety, Depression Smoking Status: Current every day smoker Past Alcohol Use History: None Reported Past Drug Use History: None Reported - Past Family History Brother(s) Family Medical History: Coronary Artery Disease (CAD), Myocardial Infarction (NC) Additional Family Medical History / Comment(s): Brother had NC in his early 40s, pacemaker Sister(s) Family Medical History: Mitral Valve Prolapse (MVP) Father Additional Family Medical History / Comment(s): "post op mrsa infection- from complications of that" Mother Family Medical History: Cancer Additional Family Medical History / Comment(s): Lung cancer General Exam Limitations: no limitations General appearance: alert, in no apparent distress Head exam: Present: atraumatic, normocephalic Eye exam: Present: normal appearance. Absent: scleral icterus, conjunctival injection Neck exam: Present: normal inspection Respiratory exam: Present: normal lung sounds bilaterally. Absent: respiratory distress, wheezes, rales, rhonchi, stridor Cardiovascular Exam: Present: regular rate, normal rhythm, normal heart sounds. Absent: systolic murmur, diastolic murmur, rubs, gallop GI/Abdominal exam: Present: soft. Absent: distended, tenderness, guarding, rebound, mass, pulsatile mass Extremities exam: Present: normal inspection, tenderness, normal capillary refill. Absent: pedal edema, calf tenderness Back exam: Present: normal inspection. Absent: CVA tenderness (R), CVA tenderness (L), paraspinal tenderness, vertebral tenderness Neurological exam: Present: alert, reflexes normal. Absent: motor sensory deficit Skin exam: Present: warm, dry, intact, normal color. Absent: rash Course Vital Signs 10/30/22 10/30/22 10/30/22 11:10 13:23 14:25 Temperature 98.4 F Pulse Rate 96 85 82 Respiratory 20 18 20 Rate Blood Pressure 95/50 142/81 145/82 O2 Sat by Pulse 96 95 97 Oximetry 10/30/22 18:08 Temperature Pulse Rate 87 Respiratory 18 Rate Blood Pressure O2 Sat by Pulse 98 Oximetry Procedures - [employer] Protocol (Time Out) Nurse: Rossi Bullock Medical Decision Making - Medical Decision Making This patient is a 62-year-old woman presenting with left lower extremity pains present nearly 2 weeks getting progressively worse. The examination of the leg may have some spasm the left hamstring versus right. No palpable cord or Homans sign. The left leg raise is somewhat equivocal though pain seems worse above about 30-40. The strength and sensation are intact. Left leg pulses are strong and capillary refill normal. Skin exam normal no evidence of rash or infection. The patient did have duplex Doppler negative for DVT. The patient did have some relief of symptoms following analgesic. She did want to go home. I at this point, the symptoms seem most likely to be radicular in nature. Patient will have course of steroid and analgesic and is to have follow-up. No evidence of arterial insufficiency and no leak DVT or evidence of infection at this point. We discussed appropriate further care and follow-up as well as return parameters. Was pt. sent in by a medical professional or institution (ADENIKE Busch, NOC ANALYST, urgent care, hospital, or retirement...) When possible be specific @ -[No] Did you speak to anyone other than the patient for history (EMS, parent, family, police, friend...)? What history was obtained from this source @ -[No] Did you review nursing and triage notes (agree or disagree)? Why? @ -[I reviewed and agree with nursing and triage notes] Were old charts reviewed (outside hosp., previous admission, EMS record, old EKG, old radiological studies, urgent care reports/EKG's, retirement records)? Report findings @ -[No old charts were reviewed] Differential Diagnosis (chest pain, altered mental status, abdominal pain women, abdominal pain men, vaginal bleeding, weakness, fever, dyspnea, syncope, headache, dizziness, GI bleed, back pain, seizure, CVA, palpatations, mental health, musculoskeletal)? @ -[not applicable] EKG interpreted by me (3pts min.). @ -[As above] X-rays interpreted by me (1pt min.). @ -[None done] CT interpreted by me (1pt min.). @ -[None done] U/S interpreted by me (1pt. min.). @ -[None done] What testing was considered but not performed or refused? (CT, X-rays, U/S, labs)? Why? @ -[None] What meds were considered but not given or refused? Why? @ -[None] Did you discuss the management of the patient with other professionals (professionals i.e. ADENIKE Busch, NOC ANALYST, lab, RT, psych nurse, long term care social worker, skin tanner, teacher, administrative officer, case reviewer)? Give summary @ -[No] Was smoking cessation discussed for >3mins.? @ -[No] Was critical care preformed (if so, how long)? @ -[No] Were there social determinants of health that impacted care today? How? (Homelessness, low income, unemployed, alcoholism, drug addiction, transportation, low edu. Level, literacy, decrease access to med. care, fdc, rehab)? @ -[No] Was there de-escalation of care discussed even if they declined (Discuss DNR or withdrawal of care, Hospice)? DNR status @ -[No] What co-morbidities impacted this encounter? (DM, HTN, Smoking, COPD, CAD, Cancer, CVA, ARF, Chemo, Hep., AIDS, mental health diagnosis, sleep apnea, morbid obesity)? @ -[None] Was patient admitted / discharged? Hospital course, mention meds given and route, prescriptions, significant lab abnormalities, going to OR and other pertinent info. @ -[As above Undiagnosed new problem with uncertain prognosis? @ -[No] Drug Therapy requiring intensive monitoring for toxicity (Heparin, Nitro, Insulin, Cardizem)? @ -[No] Were any procedures done? @ -[No] Diagnosis/symptom? @ -[Left leg pain Acute, or Chronic, or Acute on Chronic? @ -[Acute Uncomplicated (without systemic symptoms) or Complicated (systemic symptoms)? @ -[Uncomplicated Side effects of treatment? @ -[No] Exacerbation, Progression, or Severe Exacerbation? @ -[No] Poses a threat to life or bodily function? How? (Chest pain, USA, NC, pneumonia, PE, COPD, DKA, ARF, appy, cholecystitis, CVA, Diverticulitis, Homicidal, Suicidal, threat to staff... and all critical care pts) @ -[No] - Lab Data Result diagrams: 10/30/22 12:39 10/30/22 15:45 Lab Results 10/30/22 10/30/22 10/30/22 Range/Units 12:39 12:39 12:39 WBC 7.2 (3.8-10.6) k/uL RBC 5.27 (3.80-5.40) m/uL Hgb 17.6 H (11.4-16.0) gm/dL Hct 54.1 H (34.0-46.0) % MCV 102.7 H (80.0-100.0) fL MCH 33.5 (25.0-35.0) pg MCHC 32.6 (31.0-37.0) g/dL RDW 12.9 (11.5-15.5) % Plt Count 389 (150-450) k/uL MPV 8.2 Neutrophils % 64 % Lymphocytes % 26 % Monocytes % 6 % Eosinophils % 1 % Basophils % 1 % Neutrophils # 4.6 (1.3-7.7) k/uL Lymphocytes # 1.9 (1.0-4.8) k/uL Monocytes # 0.5 (0-1.0) k/uL Eosinophils # 0.1 (0-0.7) k/uL Basophils # 0.0 (0-0.2) k/uL Macrocytosis Slight Sodium 132 L (137-145) mmol/L Potassium 6.3 H* (3.5-5.1) mmol/L Chloride 96 L (98-107) mmol/L Carbon Dioxide 29 (22-30) mmol/L Anion Gap 7 mmol/L BUN 10 (7-17) mg/dL Creatinine 0.56 (0.52-1.04) mg/dL Est GFR (CKD-EPI)AfAm >90 (>60 ml/min/1.73 sqM) Est GFR (CKD-EPI)NonAf >90 (>60 ml/min/1.73 sqM) Glucose 110 H (74-99) mg/dL Lactic Ac Sepsis Rflx Plasma Lactic Acid Dio 4.0 H* (0.7-2.0) mmol/L Calcium 10.6 H (8.4-10.2) mg/dL Magnesium 2.0 (1.6-2.3) mg/dL Total Bilirubin 0.8 (0.2-1.3) mg/dL AST 35 (14-36) U/L ALT 26 (4-34) U/L Alkaline Phosphatase 76 (38-126) U/L Total Protein 7.8 (6.3-8.2) g/dL Albumin 4.9 (3.5-5.0) g/dL 10/30/22 10/30/22 10/30/22 Range/Units 13:39 15:45 15:45 WBC (3.8-10.6) k/uL RBC (3.80-5.40) m/uL Hgb (11.4-16.0) gm/dL Hct (34.0-46.0) % MCV (80.0-100.0) fL MCH (25.0-35.0) pg MCHC (31.0-37.0) g/dL RDW (11.5-15.5) % Plt Count (150-450) k/uL MPV Neutrophils % % Lymphocytes % % Monocytes % % Eosinophils % % Basophils % % Neutrophils # (1.3-7.7) k/uL Lymphocytes # (1.0-4.8) k/uL Monocytes # (0-1.0) k/uL Eosinophils # (0-0.7) k/uL Basophils # (0-0.2) k/uL Macrocytosis Sodium 132 L (137-145) mmol/L Potassium 4.8 (3.5-5.1) mmol/L Chloride 101 (98-107) mmol/L Carbon Dioxide 25 (22-30) mmol/L Anion Gap 6 mmol/L BUN 7 (7-17) mg/dL Creatinine 0.47 L (0.52-1.04) mg/dL Est GFR (CKD-EPI)AfAm >90 (>60 ml/min/1.73 sqM) Est GFR (CKD-EPI)NonAf >90 (>60 ml/min/1.73 sqM) Glucose 91 (74-99) mg/dL Lactic Ac Sepsis Rflx Y Plasma Lactic Acid Dio 1.3 (0.7-2.0) mmol/L Calcium 8.8 (8.4-10.2) mg/dL Magnesium (1.6-2.3) mg/dL Total Bilirubin (0.2-1.3) mg/dL AST (14-36) U/L ALT (4-34) U/L Alkaline Phosphatase (38-126) U/L Total Protein (6.3-8.2) g/dL Albumin (3.5-5.0) g/dL Disposition Clinical Impression: Leg pain, left Disposition: HOME SELF-CARE Condition: Good Instructions (If sedation given, give patient instructions): Leg Pain (ED) Prescriptions: predniSONE [Deltasone] 20 mg PO BID #8 tab HYDROcodone/APAP 5-325MG [[place] 5-325] 1 tab PO Q6H PRN 3 Days #12 tab PRN Reason: Pain methocarbamoL [Robaxin-750] 750 mg PO TID PRN #21 tab PRN Reason: Pain Is patient prescribed a controlled substance at d/c from ED?: No Referrals: Clemente Gongora MD [Primary Care Provider] - 1-2 days
[2022-10-30] MEDS ORDERED: HYDROmorphone 0.5 MG/0.5 ML SYRINGE IVP STA (17:47)
[2022-10-30 18:12] VITALS: PULSE 87; RESP 18
== END 2022-10-30 18:09 | disposition home or self-care (01) ==
LOC: EC 10:42
DX: M79.605 Pain in left leg (principal); J44.9 Chronic obstructive pulmonary disease, unspecified; F41.9 Anxiety disorder, unspecified; F32.A Depression, unspecified; F17.200 Nicotine dependence, unspecified, uncomplicated; Z88.8 Allergy status to other drugs, medicaments and biological substances; Z79.899 Other long term (current) drug therapy; Z79.82 Long term (current) use of aspirin
CPT/HCPCS: 36415; 80053; 80048; 83605; 83735; 85025; 93971; 99284; 96374; 96375 ×2; 96376; 96361 ×2; 96372; J2270; J2360; J2930; J1170

== ENCOUNTER 2022-12-26 08:01 | Observation (INO) | payer OTHER ==
[2022-12-26] MEDS ORDERED: ASPIRIN 81 MG PO STA (08:24)
[2022-12-26] MEDS ORDERED: NITROGLYCERIN SL TABS 0.4 MG TAB SUBLINGUAL STA (08:24)
[2022-12-26] MEDS ORDERED: IPRATROPIUM 0.5 MG/2.5 ML NEBU INHALATION STA (08:24)
[2022-12-26] MEDS ORDERED: NITROGLYCERIN OINT 1 INCH/GM PACKET TOPICAL STA (08:24)
[2022-12-26] MEDS ORDERED: methylPREDNISolone SOD SUCCI 125 MG/2 ML VIAL IV STA (08:24)
[2022-12-26] MEDS ORDERED: ALBUTEROL NEBULIZED 2.5 MG/3 ML INHALATION STA (08:24)
--- NOTE | 2022-12-26 08:28 | ED ---
General Adult HPI - General Chief complaint: Chest Pain Stated complaint: Chest Pain Time Seen by Provider: 12/26/22 08:15 Source: patient, RN notes reviewed, old records reviewed Mode of arrival: ambulatory Limitations: no limitations - History of Present Illness Initial comments: This is a 62-year-old female presents emergency Department with a past medical history significant for smoking and high blood pressure. Patient states at 3:00 portion woke up having difficulty breathing and some chest pain. Patient states there is no radiation of the pain. Patient states she also was diaphoretic. Patient states she doesn't think it's her COPD because it seems to be a little different type of chest pain. Patient denies any fevers but states she has had a chill. Patient denies any abdominal pain patient denies nausea vomiting. Patient denies any patient denies numbness weakness. - Related Data Home Medications Medication Instructions Recorded Confirmed Aspirin 325 mg PO DAILY 03/16/22 11/03/22 Ipratropium-Albuterol Nebulize 3 ml INHALATION RT-TID PRN 11/03/22 11/03/22 [Duoneb 0.5 mg-3 mg/3 ml Soln] predniSONE [Deltasone] 20 mg PO DIRECTED 11/03/22 11/03/22 Previous Rx's Medication Instructions Recorded Budesonide-Formot 160-4.5 Mcg 2 puff INHALATION RT-BID #1 unit 12/01/17 [Symbicort 160-4.5 Mcg Inhaler] HYDROcodone/APAP 5-325MG [[place] 1 tab PO Q6H PRN 3 Days #12 tab 10/30/22 5-325] methocarbamoL [Robaxin-750] 750 mg PO TID PRN #21 tab 10/30/22 lamoTRIgine [LaMICtal] 50 mg PO BID tab 11/08/22 Allergies Allergy/AdvReac Type Severity Reaction Status Date / Time metronidazole [From Flagyl] AdvReac NUMBNESS Verified 12/26/22 08:06 IN LEGS dust Allergy Dyspnea Uncoded 12/26/22 08:06 Review of Systems ROS Statement: Those systems with pertinent positive or pertinent negative responses have been documented in the HPI. ROS Other: All systems not noted in ROS Statement are negative. Past Medical History Past Medical History: Chest Pain / Angina, COPD, GERD/Reflux Additional Past Medical History / Comment(s): Chronic bronchitis, sinus tachycardia, chronic back pain, migraines, [place] bilaterally, bilateral tinnitis. History of Any Multi-Drug Resistant Organisms: None Reported Past Surgical History: Appendectomy, Tubal Ligation Additional Past Surgical History / Comment(s): pt states heart cath back in 2004 with no stents Past Anesthesia/Blood Transfusion Reactions: No Reported Reaction Past Psychological History: Anxiety, Depression Smoking Status: Current every day smoker Past Alcohol Use History: None Reported Past Drug Use History: None Reported - Past Family History Brother(s) Family Medical History: Coronary Artery Disease (CAD), Myocardial Infarction ([place]) Additional Family Medical History / Comment(s): Brother had [place] in his early 40s, pacemaker Sister(s) Family Medical History: Mitral Valve Prolapse (MVP) Father Additional Family Medical History / Comment(s): "post op mrsa infection- from complications of that" Mother Family Medical History: Cancer Additional Family Medical History / Comment(s): Lung cancer General Exam - General Exam Comments Initial Comments: GENERAL: Patient is well-developed and well-nourished. Patient is nontoxic and well- hydrated and is in moderate distress. ENT: Neck is soft and supple. No significant lymphadenopathy is noted. Oropharynx is clear. Moist mucous membranes. Neck has full range of motion without eliciting any pain. EYES: The sclera were anicteric and conjunctiva were pink and moist. Extraocular movements were intact and pupils were equal round and reactive to light. Eyelids were unremarkable. PULMONARY: Unlabored respirations. Good breath sounds bilaterally. No audible rales rhonchi or wheezing was noted. CARDIOVASCULAR: There is a regular rate and rhythm without any murmurs gallops or rubs. ABDOMEN: Diffuse diminished breath sounds SKIN: Skin is clear with no lesions or rashes and otherwise unremarkable. NEUROLOGIC: Patient is alert and oriented x3. Cranial nerves II through XII are grossly intact. Motor and sensory are also intact. Normal speech, volume and content. Symmetrical smile. MUSCULOSKELETAL: Normal extremities with adequate strength and full range of motion. No lower extremity swelling or edema. No calf tenderness. LYMPHATICS: No significant lymphadenopathy is noted PSYCHIATRIC: Normal psychiatric evaluation. Limitations: no limitations Course Vital Signs 12/26/22 12/26/22 12/26/22 08:04 08:20 09:08 Temperature 98.5 F 98.4 F Pulse Rate 104 H 102 H 102 H Respiratory 26 H 32 H Rate Blood Pressure 174/105 187/109 O2 Sat by Pulse 94 L 91 L Oximetry 12/26/22 12/26/22 09:12 09:25 Temperature Pulse Rate 86 96 Respiratory 18 Rate Blood Pressure 130/96 O2 Sat by Pulse 98 Oximetry Medical Decision Making - Medical Decision Making EKG is interpreted by myself. EKG shows sinus rhythm at 97 bpm GA interval 232 QRS is 98 QT interval 340 QTC is 390. Patient's EKG shows no ST segment elevation or depression. Was pt. sent in by a medical professional or institution (, PA, NATURALIST, urgent care, hospital, or penitentiary...) When possible be specific @ -No Did you speak to anyone other than the patient for history (EMS, parent, family, police, friend...)? What history was obtained from this source @ -No Did you review nursing and triage notes (agree or disagree)? Why? @ -I reviewed and agree with nursing and triage notes Were old charts reviewed (outside hosp., previous admission, EMS record, old EKG, old radiological studies, urgent care reports/EKG's, penitentiary records)? Report findings @ -I reviewed prior charts in prior laboratory this patient. Differential Diagnosis (chest pain, altered mental status, abdominal pain women, abdominal pain men, vaginal bleeding, weakness, fever, dyspnea, syncope, headache, dizziness, GI bleed, back pain, seizure, CVA, palpatations, mental health, musculoskeletal)? @ -Differential Dyspnea: Coronary syndrome, arrhythmia, tamponade, asthma, COPD, pulmonary embolism, pneumonia, pneumothorax, pulmonary effusion, anaphylaxis, diabetic ketoacidosis, flailed chest, pulmonary contusion, diaphragmatic rupture, anemia, neuromuscular, this is not meant to be an all-inclusive list. EKG interpreted by me (3pts min.). @ -As above X-rays interpreted by me (1pt min.). @ -Chest x-ray shows severe emphysema CT interpreted by me (1pt min.). @ -None done U/S interpreted by me (1pt. min.). @ -None done What testing was considered but not performed or refused? (CT, X-rays, U/S, labs)? Why? @ -None What meds were considered but not given or refused? Why? @ -None Did you discuss the management of the patient with other professionals (professionals i.e. Dr., PA, NATURALIST, lab, RT, psych nurse, social work specialist, hide house supervisor, teacher, defence force senior officer, case technician)? Give summary @ -I spoke with Dr. Gongora he agreed to admit the patient admitted the patient I wrote a minute orders Was smoking cessation discussed for >3mins.? @ -Yes Was critical care preformed (if so, how long)? @ -No Were there social determinants of health that impacted care today? How? (Homelessness, low income, unemployed, alcoholism, drug addiction, transportation, low edu. Level, literacy, decrease access to med. care, snf, rehab)? @ -No Was there de-escalation of care discussed even if they declined (Discuss DNR or withdrawal of care, Hospice)? DNR status @ -No What co-morbidities impacted this encounter? (DM, HTN, Smoking, COPD, CAD, Cancer, CVA, ARF, Chemo, Hep., AIDS, mental health diagnosis, sleep apnea, morbid obesity)? @ -None Was patient admitted / discharged? Hospital course, mention meds given and route, prescriptions, significant lab abnormalities, going to OR and other pertinent info. @ -Patient was very tachypneic on arrival she received 2 breathing treatments steroids and was feeling considerably better after that. Patient's lab work was essentially normal x-ray shows severe COPD. I spoke with Clemente Gongora we will be admitting the patient in consultation cardiology. I wrote admitting orders Undiagnosed new problem with uncertain prognosis? @ -No Drug Therapy requiring intensive monitoring for toxicity (Heparin, Nitro, Insulin, Cardizem)? @ -No Were any procedures done? @ -No Diagnosis/symptom? @ -COPD exacerbation Acute, or Chronic, or Acute on Chronic? @ -Acute Uncomplicated (without systemic symptoms) or Complicated (systemic symptoms)? @ -Complicated Side effects of treatment? @ -No Exacerbation, Progression, or Severe Exacerbation? @ -No Poses a threat to life or bodily function? How? (Chest pain, [place], SD, pneumonia, PE, COPD, DKA, ARF, appy, cholecystitis, CVA, Diverticulitis, Homicidal, Suicidal, threat to staff... and all critical care pts) @ -Yes this could lead to hypoxia and an organ dysfunction Diagnosis/symptom? @ -Chest pain Acute, or Chronic, or Acute on Chronic? @ -Acute Uncomplicated (without systemic symptoms) or Complicated (systemic symptoms)? @ -Complicated Side effects of treatment? @ -none Exacerbation, Progression, or Severe Exacerbation] @ -no Poses a threat to life or bodily function? @ -Yes this could lead to an SD and then end organ dysfunction - Lab Data Result diagrams: 12/26/22 08:33 12/26/22 08:33 Lab Results 12/26/22 12/26/22 12/26/22 Range/Units 08:33 08:33 08:33 WBC 6.5 (3.8-10.6) k/uL RBC 4.85 (3.80-5.40) m/uL Hgb 16.3 H (11.4-16.0) gm/dL Hct 49.4 H (34.0-46.0) % MCV 101.8 H (80.0-100.0) fL MCH 33.7 (25.0-35.0) pg MCHC 33.1 (31.0-37.0) g/dL RDW 12.5 (11.5-15.5) % Plt Count 427 (150-450) k/uL MPV 7.7 Neutrophils % 66 % Lymphocytes % 23 % Monocytes % 7 % Eosinophils % 2 % Basophils % 1 % Neutrophils # 4.3 (1.3-7.7) k/uL Lymphocytes # 1.5 (1.0-4.8) k/uL Monocytes # 0.4 (0-1.0) k/uL Eosinophils # 0.1 (0-0.7) k/uL Basophils # 0.1 (0-0.2) k/uL PT 10.2 (10.0-12.5) sec INR 0.9 (<1.2) APTT 23.6 (22.0-30.0) sec Sodium 131 L (137-145) mmol/L Potassium 5.9 H (3.5-5.1) mmol/L Chloride 92 L (98-107) mmol/L Carbon Dioxide 25 (22-30) mmol/L Anion Gap 14 mmol/L BUN 7 (7-17) mg/dL Creatinine 0.59 (0.52-1.04) mg/dL Est GFR (CKD-EPI)AfAm >90 (>60 ml/min/1.73 sqM) Est GFR (CKD-EPI)NonAf >90 (>60 ml/min/1.73 sqM) Glucose 124 H (74-99) mg/dL Plasma Lactic Acid Dio (0.7-2.0) mmol/L Calcium 10.3 H (8.4-10.2) mg/dL Magnesium 2.0 (1.6-2.3) mg/dL Total Bilirubin 1.0 (0.2-1.3) mg/dL AST 35 (14-36) U/L ALT 19 (4-34) U/L Alkaline Phosphatase 72 (38-126) U/L Troponin I (0.000-0.034) ng/mL Total Protein 8.0 (6.3-8.2) g/dL Albumin 4.9 (3.5-5.0) g/dL Coronavirus (PCR) (Not Detectd) 12/26/22 12/26/22 12/26/22 Range/Units 08:33 08:33 08:33 WBC (3.8-10.6) k/uL RBC (3.80-5.40) m/uL Hgb (11.4-16.0) gm/dL Hct (34.0-46.0) % MCV (80.0-100.0) fL MCH (25.0-35.0) pg MCHC (31.0-37.0) g/dL RDW (11.5-15.5) % Plt Count (150-450) k/uL MPV Neutrophils % % Lymphocytes % % Monocytes % % Eosinophils % % Basophils % % Neutrophils # (1.3-7.7) k/uL Lymphocytes # (1.0-4.8) k/uL Monocytes # (0-1.0) k/uL Eosinophils # (0-0.7) k/uL Basophils # (0-0.2) k/uL PT (10.0-12.5) sec INR (<1.2) APTT (22.0-30.0) sec Sodium (137-145) mmol/L Potassium (3.5-5.1) mmol/L Chloride (98-107) mmol/L Carbon Dioxide (22-30) mmol/L Anion Gap mmol/L BUN (7-17) mg/dL Creatinine (0.52-1.04) mg/dL Est GFR (CKD-EPI)AfAm (>60 ml/min/1.73 sqM) Est GFR (CKD-EPI)NonAf (>60 ml/min/1.73 sqM) Glucose (74-99) mg/dL Plasma Lactic Acid Dio 1.3 (0.7-2.0) mmol/L Calcium (8.4-10.2) mg/dL Magnesium (1.6-2.3) mg/dL Total Bilirubin (0.2-1.3) mg/dL AST (14-36) U/L ALT (4-34) U/L Alkaline Phosphatase (38-126) U/L Troponin I 0.014 (0.000-0.034) ng/mL Total Protein (6.3-8.2) g/dL Albumin (3.5-5.0) g/dL Coronavirus (PCR) Not Detected (Not Detectd) Disposition Clinical Impression: COPD with acute exacerbation, Chest pain Disposition: ADMITTED IP TO THIS HOSP Referrals: Clemente Gongora MD [Primary Care Provider] - 1-2 days Time of Disposition: 09:57
--- NOTE | 2022-12-26 08:44 | XR ---
EXAMINATION TYPE: XR chest 2V DATE OF EXAM: 12/26/2022 COMPARISON: 11/03/2022 TECHNIQUE: PA and lateral views submitted. HISTORY: Chest pain FINDINGS: The lungs are clear and there is no pneumothorax, pleural effusion, or focal pneumonia. Heart size normal and no overt failure. Osseous structures demonstrate hypertrophic and degenerative changes of the spine. Linear density extending from the right hilum most likely related to scarring and stable. Diffuse emphysematous changes. IMPRESSION: 1. No acute process. Diffuse emphysema with stable suspected scarring involving the right hilum.
[2022-12-26 08:48] LABS: Basophils # (A) 0.1 k/uL (0-0.2); Basophils % (A) 1 %; Eosinophils # (A) 0.1 k/uL (0-0.7); Eosinophils % (A) 2 %; HCT 49.4 % (34.0-46.0); HGB 16.3 gm/dL (11.4-16.0); Lymphocytes # (A) 1.5 k/uL (1.0-4.8); Lymphocytes % (A) 23 %; MCH 33.7 pg (25.0-35.0); MCHC 33.1 g/dL (31.0-37.0); MCV 101.8 fL (80.0-100.0); Mean Platelet Volume 7.7; Monocytes # (A) 0.4 k/uL (0-1.0); Monocytes % (A) 7 %; Neutrophils # (A) 4.3 k/uL (1.3-7.7); Neutrophils % (A) 66 %; Platelet Count 427 k/uL (150-450); RBC 4.85 m/uL (3.80-5.40); RDW 12.5 % (11.5-15.5); WBC 6.5 k/uL (3.8-10.6)
[2022-12-26 08:57] LABS: ALT 19 U/L (4-34); African American GFR (CKD) >90 (>60 ml/min/1.73 sqM); Anion Gap 14 mmol/L; Blood Urea Nitrogen 7 mg/dL (7-17); Calcium 10.3 mg/dL (8.4-10.2); Carbon Dioxide 25 mmol/L (22-30); Chloride 92 mmol/L (98-107); Glucose 124 mg/dL (74-99); Non-African American GFR(CKD) >90 (>60 ml/min/1.73 sqM); Sodium 131 mmol/L (137-145)
[2022-12-26 08:59] LABS: INR 0.9 (<1.2); Partial Thromboplastin Time 23.6 sec (22.0-30.0); Prothrombin Time 10.2 sec (10.0-12.5)
[2022-12-26] MEDS ORDERED: HYDROmorphone 0.5 MG/0.5 ML SYRINGE IVP STA (09:09)
[2022-12-26 09:13] LABS: AST 35 U/L (14-36); Alkaline Phosphatase 72 U/L (38-126); Potassium 5.9 mmol/L (3.5-5.1)
[2022-12-26 09:14] LABS: Albumin 4.9 g/dL (3.5-5.0)
[2022-12-26] MEDS ORDERED: NALOXONE 0.4 MG/ML 1 ML VIAL IVP PRN (09:58)
[2022-12-26] MEDS ORDERED: IPRATROPIUM-ALBUTEROL 3 ML NEB INHALATION PRN ×2 (09:58→18:32)
[2022-12-26] MEDS: NITROGLYCERIN OINT 1 INCH/GM PACKET TOPICAL SCH ×3 (11:10→23:28)
[2022-12-26] MEDS: methylPREDNISolone SOD SUCCI 125 MG/2 ML VIAL IV SCH ×3 (11:10→23:29)
[2022-12-26] MEDS: IPRATROPIUM-ALBUTEROL 3 ML NEB INHALATION SCH ×3 (11:32→20:16)
[2022-12-26] MEDS: HYDROmorphone 0.5 MG/0.5 ML SYRINGE IVP PRN ×2 (13:50→19:58)
[2022-12-26] MEDS ORDERED: HYDROcodone/APAP 5-325MG 1 EACH TAB PO PRN (18:32)
[2022-12-26] MEDS ORDERED: hydrALAZINE HCL 20 MG/ML 1 ML VIAL IVP PRN (18:33)
[2022-12-26] MEDS: lamoTRIgine 100 MG TAB PO SCH (19:59)
[2022-12-26] MEDS: amLODIPine 5 MG TAB PO SCH (19:59)
[2022-12-26] MEDS: SODIUM CHLORIDE 0.9% 1,000 ML IV SCH (20:00)
[2022-12-26] MEDS: DOXYCYCLINE 100 MG in SODIUM CHLORIDE 0.9% 100 ML IVPB SCH (20:00)
[2022-12-26] MEDS ORDERED: lamoTRIgine 25 MG TAB PO SCH (21:00)
[2022-12-26] MEDS ORDERED: ONDANSETRON 4 MG/2 ML VIAL IVP PRN (21:42)
--- NOTE | 2022-12-26 21:43 | HP ---
HISTORY AND PHYSICAL HISTORY OF PRESENT ILLNESS: A 62-year-old female, came into the hospital with acute hypoxemic respiratory failure. Past medical history of smoking, high blood pressure, recently had difficulty breathing and some chest pain. She recently went back to work. Does not think it is a COPD. It is a little bit different type of chest pain. Denies any abdominal pain, nausea, vomiting, weakness. MEDICATIONS: As mentioned above, 1. Breathing treatments. 2. Prednisone. 3. Aspirin. 4. Inhalers. 5. Chronic pain medications. PAST MEDICAL HISTORY: Thoracic, cervical, lumbar degenerative disk disease, history of angina, chest pain, COPD, GERD, chronic pancreatitis, migraines, chronic back pain, bilateral tinnitus. PAST SURGICAL HISTORY: Appendectomy, tubal ligation. PSYCH HISTORY: Anxiety, depression. SOCIAL HISTORY: Current smoker. No alcohol or drugs. FAMILY HISTORY: Brother, coronary artery disease, myocardial infarction. Sister, mitral valve prolapse. Mother, cancer of the lungs. PHYSICAL EXAMINATION: VITAL SIGNS: Stable, afebrile. Pulse rate is low 100s, 104 to 103, temp 98.4, blood pressure is 170s to 180s over 105 to 109, O2 of 91 to 94%. CARDIOVASCULAR: S1, S2. LUNGS: Scattered wheezes, rhonchi. HEMATOLOGY: Negative Homans. PSYCH: Fair mood and affect. GI: Soft. NEUROLOGIC: Cranial nerves intact. PSYCH: She is anxious, nervous. EKG, sinus rhythm. ASSESSMENT: Hypertension acceleration, chronic obstructive pulmonary disease exacerbation, possible pneumonia, per ER doctor severe emphysema. Continue current treatments. Rule out pneumonia. Cardiology consult. Prognosis guarded. MMODL / IJN: [id number] /
[2022-12-26] MEDS: ZOLPIDEM 5 MG TAB PO PRN (21:51)
[2022-12-27] MEDS: HYDROmorphone 0.5 MG/0.5 ML SYRINGE IVP PRN ×5 (00:23→20:44)
[2022-12-27] MEDS: NITROGLYCERIN OINT 1 INCH/GM PACKET TOPICAL SCH ×4 (05:15→23:59)
[2022-12-27] MEDS: PANTOPRAZOLE 40 MG TABLET PO SCH ×2 (05:27→18:57)
[2022-12-27] MEDS: methylPREDNISolone SOD SUCCI 125 MG/2 ML VIAL IV SCH ×4 (05:27→23:59)
[2022-12-27 07:35] VITALS: RESP 16
[2022-12-27] MEDS: lamoTRIgine 100 MG TAB PO SCH ×2 (07:58→20:38)
[2022-12-27] MEDS: amLODIPine 5 MG TAB PO SCH ×2 (07:58→20:38)
[2022-12-27] MEDS: SODIUM CHLORIDE 0.9% 1,000 ML IV SCH ×2 (07:59→23:59)
[2022-12-27] MEDS: DOXYCYCLINE 100 MG in SODIUM CHLORIDE 0.9% 100 ML IVPB SCH (08:07)
[2022-12-27] MEDS: IPRATROPIUM-ALBUTEROL 3 ML NEB INHALATION SCH ×4 (08:39→19:57)
[2022-12-27] MEDS ORDERED: amLODIPine 5 MG TAB PO SCH (09:00)
[2022-12-27] MEDS ORDERED: ASPIRIN 325 MG TAB PO SCH (09:00)
[2022-12-27] MEDS ORDERED: METOPROLOL SUCCINATE (ER) 25 MG TAB.ER.24H PO SCH (09:00)
[2022-12-27] MEDS: HEPARIN SODIUM,PORCINE 5,000 UNIT/ML 1 ML VIAL SQ SCH ×2 (10:15→23:59)
--- NOTE | 2022-12-27 10:23 | P.CRDCN ---
History of Present Illness Consult date: 12/27/22 Consult reason: chest pain History of present illness: History of present illness: This is a 62-year-old female previously seen in the office with Dr. Johns in 2019 with past medical history of COPD, active tobacco use and dependence, family medical history of premature coronary artery disease. We have been asked to evaluate the patient for chest pain. Patient states that she presented to the hospital due to shortness of breath and also had chest pain with radiation to her arm and back. She states she stopped smoking last week. She does not follow with the pulmonary doctor. She states she was doing her nebulizer treatments at home but she continued to have shortness of breath. Dilaudid relieves her chest pain. EKG sinus rhythm Chest x-ray: No acute process. Diffuse emphysema. WBC 6.5, hemoglobin 16.3. D-dimer 0.52. Sodium 131, potassium 5.9 with slight hemolysis, chloride 92, CO2 25. That sugar 124. Magnesium 2. Troponin negative 3. Pro-calcitonin less than 0.02. Covid 19 not detected. Home cardiac medications: Amlodipine 5 mg daily, aspirin 325 mg daily Echocardiogram performed in 2018 showed normal EF and mild MR. Lexiscan stress test performed in 2018 was normal. Review Of Systems: At the time of my evaluation: Constitutional: No fever, no chills. No weakness, fatigue or lethargy. EENT: No headache. No dizziness. Lungs: + shortness of breath, cough, no sputum production. No wheezing. Cardiovascular: + chest pain, no lower extremity edema. No palpitations. No paroxysmal nocturnal dyspnea. No orthopnea. No lightheadedness or dizziness. No syncopal episodes. Abdominal: No abdominal pain. No nausea, vomiting. No diarrhea. No constipation. No bloody or tarry stools. Musculoskeletal: No myalgias. No muscle weakness, no frequent falls. Integumentary: No wounds. No rash. No unusual bruising. Neurologic: No aphasia. No facial droop. No change in mentation. Physical examination: Gen: This is a 62-year-old female. She is resting sitting up in bed and appears to be comfortable. No acute respiratory distress. VS: reviewed HEENT: Head is atraumatic, normocephalic. Pupils equal, round. Sclerae is anicteric. NECK: Supple. No JVD. . LUNGS: Diminished bilaterally. No intercostal retractions. HEART: Regular rate and rhythm. No murmur. ABDOMEN: Soft No tenderness. EXTREMITIES: No pedal edema. No calf tenderness. NEUROLOGICAL: Patient is awake, alert and oriented x3. Assessment: Atypical chest pain, acute coronary syndrome ruled out COPD exacerbation Tobacco use and dependence Plan: Discontinue aspirin Smoking cessation Recommend [facility] consult for COPD Obtain 2-D echocardiogram and Doppler study to assess cardiac structure and function If echocardiogram is unremarkable, patient is cleared for discharge by follow up with Dr. Johns in 3 weeks. Thank you kindly for this consultation. Nurse practitioner note has been reviewed, I agree with documented findings and plan of care. Patient was seen and examined. Past Medical History Past Medical History: Chest Pain / Angina, COPD, GERD/Reflux Additional Past Medical History / Comment(s): Chronic bronchitis, sinus tachycardia, chronic back pain, migraines, PIL[place] ST[place] bilaterally, bilateral tinnitis. History of Any Multi-Drug Resistant Organisms: None Reported Past Surgical History: Appendectomy, Tubal Ligation Additional Past Surgical History / Comment(s): pt states heart cath back in 2004 with no stents Past Anesthesia/Blood Transfusion Reactions: No Reported Reaction Past Psychological History: Anxiety, Depression Additional Psychological History / Comment(s): Pt resides with her spouse. She is independent. She has a nebulizer. Smoking Status: Current every day smoker Past Alcohol Use History: None Reported Additional Past Alcohol Use History / Comment(s): started smoking 1976 was smoking 3 ppd now down to 1-2 ppd Past Drug Use History: None Reported - Past Family History Brother(s) Family Medical History: Coronary Artery Disease (CAD), Myocardial Infarction ([place]) Additional Family Medical History / Comment(s): Brother had [place] in his early 40s, pacemaker Sister(s) Family Medical History: Mitral Valve Prolapse (MVP) Father Additional Family Medical History / Comment(s): "post op mrsa infection- from complications of that" Mother Family Medical History: Cancer Additional Family Medical History / Comment(s): Lung cancer Medications and Allergies Home Medications Medication Instructions Recorded Confirmed Type Budesonide-Formot 160-4.5 Mcg 2 puff INHALATION RT-BID #1 unit 12/01/17 12/26/22 Rx [Symbicort 160-4.5 Mcg Inhaler] Aspirin 325 mg PO DAILY 03/16/22 12/26/22 History Ipratropium-Albuterol Nebulize 3 ml INHALATION RT-TID PRN 11/03/22 12/26/22 History [Duoneb 0.5 mg-3 mg/3 ml Soln] HYDROcodone/APAP 5-325MG [[place] 1 tab PO Q12H PRN 12/26/22 12/26/22 History 5-325] Ibuprofen [Motrin] 800 mg PO Q12H PRN 12/26/22 12/26/22 History amLODIPine [Norvasc] 5 mg PO DAILY 12/26/22 12/26/22 History lamoTRIgine [LaMICtal] 100 mg PO BID 12/26/22 12/26/22 History Allergies Allergy/AdvReac Type Severity Reaction Status Date / Time metronidazole [From Flagyl] AdvReac NUMBNESS Verified 12/26/22 10:49 IN LEGS dust AdvReac Dyspnea Uncoded 12/26/22 10:49 Physical Exam Vitals: Vital Signs Temp Pulse Pulse Resp BP BP Pulse Ox 12/27/22 07:18 97.7 F 75 16 136/76 93 L 12/27/22 00:07 97.7 F 101 H 18 149/73 92 L 12/26/22 21:56 157/90 12/26/22 20:34 100 12/26/22 20:16 98 12/26/22 19:34 97.8 F 104 H 17 152/66 93 L 12/26/22 16:01 100 12/26/22 15:46 104 H 12/26/22 12:00 97.4 F L 109 H 18 136/72 91 L 12/26/22 11:35 95 18 134/88 98 12/26/22 09:25 96 12/26/22 09:12 86 18 130/96 98 12/26/22 09:08 102 H Intake and Output 12/26/22 12/27/22 12/27/22 22:59 06:59 14:59 Intake Total 200 Output Total 700 Balance 200 -700 Intake: Oral 200 Output: Emesis 700 Other: Voiding Method Toilet # Voids 3 2 Results 12/26/22 08:33 12/26/22 08:33 Cardiac Enzymes 12/26/22 12/26/22 12/26/22 Range/Units 08:33 08:33 15:23 AST 35 (14-36) U/L Troponin I 0.014 <0.012 (0.000-0.034) ng/mL 12/26/22 Range/Units 17:39 AST (14-36) U/L Troponin I <0.012 (0.000-0.034) ng/mL Coagulation 12/26/22 Range/Units 08:33 PT 10.2 (10.0-12.5) sec APTT 23.6 (22.0-30.0) sec CBC 12/26/22 Range/Units 08:33 WBC 6.5 (3.8-10.6) k/uL RBC 4.85 (3.80-5.40) m/uL Hgb 16.3 H (11.4-16.0) gm/dL Hct 49.4 H (34.0-46.0) % Plt Count 427 (150-450) k/uL Comprehensive Metabolic Panel 12/26/22 Range/Units 08:33 Sodium 131 L (137-145) mmol/L Potassium 5.9 H (3.5-5.1) mmol/L Chloride 92 L (98-107) mmol/L Carbon Dioxide 25 (22-30) mmol/L BUN 7 (7-17) mg/dL Creatinine 0.59 (0.52-1.04) mg/dL Glucose 124 H (74-99) mg/dL Calcium 10.3 H (8.4-10.2) mg/dL AST 35 (14-36) U/L ALT 19 (4-34) U/L Alkaline Phosphatase 72 (38-126) U/L Total Protein 8.0 (6.3-8.2) g/dL Albumin 4.9 (3.5-5.0) g/dL Current Medications Generic Name Dose Route Start Last Admin Trade Name Freq PRN Reason Stop Dose Admin Hydrocodone Bitart/Acetaminophen 1 each 12/26/22 18:32 Hydrocodone/Apap 5-325mg 1 Each Tab PO Q12H PRN Pain Albuterol/Ipratropium 3 ml 12/26/22 12:00 12/26/22 20:16 Ipratropium-Albuterol 3 Ml Neb INHALATION 3 ml RT-QID MAGALYS Administration Albuterol/Ipratropium 3 ml 12/26/22 09:58 Ipratropium-Albuterol 3 Ml Neb INHALATION RT-Q2H PRN Shortness Of Breath Or Wheezing Albuterol/Ipratropium 3 ml 12/26/22 18:32 Ipratropium-Albuterol 3 Ml Neb INHALATION RT-TID PRN Shortness Of Breath Amlodipine Besylate 5 mg 12/26/22 21:00 12/27/22 07:58 Amlodipine 5 Mg Tab PO 5 mg BID MAGALYS Administration Aspirin 325 mg 12/27/22 09:00 12/27/22 07:58 Aspirin 325 Mg Tab PO 325 mg DAILY MAGALYS Administration Doxycycline Monohydrate 100 mg 12/27/22 21:00 Doxycycline 100 Mg Cap PO BID MAGALYS Hydralazine HCl 10 mg 12/26/22 18:33 Hydralazine Hcl 20 Mg/Ml 1 Ml Vial IVP Q6HR PRN Blood Pressure - High Hydromorphone HCl 0.5 mg 12/26/22 13:22 12/27/22 05:31 Hydromorphone 0.5 Mg/0.5 Ml Syringe IVP 0.5 mg Q4HR PRN Administration Pain Sodium Chloride 1,000 mls @ 75 mls/hr 12/26/22 18:45 12/27/22 07:59 Saline 0.9% IV 75 mls/hr .[id number] MAGALYS Administration Doxycycline Hyclate 100 mg/ 100 mls @ 100 mls/hr 12/26/22 21:00 12/27/22 08:07 Sodium Chloride IVPB 12/27/22 10:00 100 mls/hr Q12HR MAGALYS Administration Protocol Lamotrigine 100 mg 12/26/22 21:00 12/27/22 07:58 Lamotrigine 100 Mg Tab PO 100 mg BID MAGALYS Administration Methylprednisolone Sodium Succinate 60 mg 12/26/22 12:00 12/27/22 05:27 Methylprednisolone Sod Succi 125 Mg/2 Ml Vial IV 60 mg Q6HR MAGALYS Administration Naloxone HCl 0.2 mg 12/26/22 09:58 Naloxone 0.4 Mg/Ml 1 Ml Vial IVP Q2M PRN Opioid Reversal Nitroglycerin 1 inch 12/26/22 12:00 12/27/22 05:15 Nitroglycerin Oint 1 Inch/Gm Packet TOPICAL Not Given Q6HR [facility] Ondansetron HCl 4 mg 12/26/22 21:42 12/26/22 21:51 Ondansetron 4 Mg/2 Ml Vial IVP 4 mg Q6HR PRN Administration Nausea And Vomiting Pantoprazole Sodium 40 mg 12/27/22 07:30 12/27/22 05:27 Pantoprazole 40 Mg Tablet PO 40 mg AC-BID MAGALYS Administration Zolpidem Tartrate 5 mg 12/26/22 21:42 12/26/22 21:51 Zolpidem 5 Mg Tab PO 5 mg HS PRN Administration Insomnia Intake and Output 12/26/22 12/27/22 12/27/22 22:59 06:59 14:59 Intake Total 200 Output Total 700 Balance 200 -700 Intake: Oral 200 Output: Emesis 700 Other: Voiding Method Toilet # Voids 3 2 12/26/22 08:33 12/26/22 08:33
[2022-12-27] MEDS: SYMBICORT 160-4.5 MCG INHALER INHALATION SCH ×2 (11:07→19:57)
--- NOTE | 2022-12-27 11:29 | CA ---
Transthoracic Echo Report Name: Marisel Cummins Age: 62 Gender: F : 1960 Exam Date: 12/27/2022 10:22 Exam Location: [place] [facility] Ht (in): 67 Wt (lb): 120 Ordering Physician: Adriana Knapp Attending/Referring Phys: [id number], Aria [employer] Machine Operator Jyoti Ohara RDCS Procedure CPT: Indications: LVF Cardiac Hx: Technical Quality: Good Contrast 1: Total Dose (mL): Contrast 2: Total Dose (mL): MEASUREMENTS (Male / Female) Normal Values 2D ECHO LV Diastolic Diameter PLAX 4.5 cm 4.2 - 5.9 / 3.9 - 5.3 cm LV Systolic Diameter PLAX 2.2 cm IVS Diastolic Thickness 1.0 cm 0.6 - 1.0 / 0.6 - 0.9 cm LVPW Diastolic Thickness 1.0 cm 0.6 - 1.0 / 0.6 - 0.9 cm LV Relative Wall Thickness 0.4 RV Internal Dim ED PLAX 3.1 cm LA Systolic Diameter LX 2.9 cm 3.0 - 4.0 / 2.7 - 3.8 cm LV Diastolic Volume MOD 4C 81.8 cm??? LV Systolic Volume MOD 4C 28.1 cm??? LV Ejection Fraction MOD 4C 65.6 % LV Cardiac Index MOD 4C 3026.4 cm???/min???m??? LV Diastolic Length 4C 8.2 cm LV Systolic Length 4C 6.6 cm LV Diastolic Volume MOD 2C 91.5 cm??? LV Systolic Volume MOD 2C 37.4 cm??? LV Ejection Fraction MOD 2C 59.1 % LV Cardiac Index MOD 2C 3050.0 cm???/min???m??? LV Diastolic Length 2C 8.3 cm LV Systolic Length 2C 6.8 cm LA Volume 31.5 cm??? 18 - 58 / 22 - 52 cm??? LA Volume Index 19.8 cm???/m??? 16 - 28 cm???/m??? M-MODE Aortic Root Diameter MM 3.2 cm MV E Point Septal Separation 0.5 cm AV Cusp Separation MM 2.0 cm DOPPLER AV Peak Velocity 125.8 cm/s AV Peak Gradient 6.3 mmHg MV Area PHT 2.6 cm??? Mitral E Point Velocity 95.0 cm/s Mitral A Point Velocity 107.9 cm/s Mitral E to A Ratio 0.9 MV Deceleration Time 292.3 ms MV E' Velocity 8.9 cm/s Mitral E to MV E' Ratio 10.6 TR Peak Velocity 272.5 cm/s TR Peak Gradient 29.7 mmHg Right Ventricular Systolic Press 34.7 mmHg FINDINGS Left Ventricle Left ventricular ejection fraction is estimated at 55-60 %. Left ventricular cavity size normal. Left ventricular wall thickness normal. Right Ventricle Normal right ventricular size. Mild pulmonary hypertension. Right ventricular systolic pressure estimated at 35 mm hg. Right Atrium Normal right atrial size. Left Atrium Normal left atrial size. Mitral Valve Structurally normal mitral valve. No mitral stenosis, regurgitation or prolapse. Aortic Valve Trileaflet aortic valve. No aortic valve stenosis or regurgitation. Tricuspid Valve Structurally normal tricuspid valve. Mild tricuspid regurgitation. Pulmonic Valve Structurally normal pulmonic valve. Pericardium No pericardial effusion. Aorta Normal size aortic root and proximal ascending aorta. CONCLUSIONS Normal LV size and systolic function. Patient is tachycardic. No significant abnormality in the Doppler exam. No pericardial effusion. No significant pulmonary hypertension Previewed by: Dr. Jose Luis Lipscomb MD (Electronically Signed) Final Date: 27 December 2022 11:28
--- NOTE | 2022-12-27 12:09 | P.CNPUL ---
History of Present Illness Consult date: 12/27/22 Reason for consult: dyspnea, COPD History of present illness: I'm seeing this 60-year-old female patient for wheeze. She is known to have COPD and she is a chronic smoker. She has a chronic abnormality in the right upper lobe probably a residual of previous pneumonia that she had several years back. The patient was apparently smoking up to last week. During this current admission, chest x-ray showed no acute cardiac pulmonary process and there is some background emphysema. The patient had a white cell count of 6.5, he was 16.3, sodium is at 131, potassium level is at 5.9, bicarbonate 25, magnesium is at 2, troponins are negative, pro-calcitonin level is at 0.02 and the Covid 19 testing was negative. The patient was according to hospital for an acute COPD exacerbation. Echo was also ordered. She is having atypical chest pain. Her most recent CT angiogram of the chest that was done on 11/07/2022 showed no evidence of any pulmonary embolism. As far as the lung, there is a right middle lobe pulmonary nodule measuring 7 mm in size which has remained essentially unchanged. There is also some scattered scarring in the right upper lobe, reminiscent of a previous pneumonia. In regards to her COPD, she has limited on Symbicort 2 puffs twice a day and Spiriva one ablation day and she has an albuterol nebulizer at home. She does not use home O2. Rectal cardiac rhythm is essentially within normal limits. No evidence of any pulmonary hypertension. No evidence of any valvular abnormalities. Review of Systems Constitutional: Reports as per HPI Eyes: denies as per HPI, denies blurred vision, denies bulging eye, denies decreased vision, denies diplopia, denies discharge, denies dry eye, denies irritation, denies itching, denies pain, denies photophobia, denies loss of peripheral vision, denies loss of vision, denies tunnel vision/blind spots Ears: deny: decreased hearing, ear discharge, earache, tinnitus Ears, nose, mouth and throat: Reports as per HPI Breasts: absent: as per HPI, change in shape, gynecomastia, masses, nipple discharge, pain, skin changes, swelling Cardiovascular: Reports chest pain (Atypical), Reports decreased exercise tolera nce, Reports dyspnea on exertion Respiratory: Reports cough, Reports dyspnea Gastrointestinal: Reports as per HPI Genitourinary: Reports as per HPI Menstruation: Reports as per HPI Musculoskeletal: Reports as per HPI Musculoskeletal: absent: ankle pain, ankle stiffness, ankle swelling Integumentary: Reports as per HPI Neurological: Reports as per HPI Psychiatric: Reports as per HPI Endocrine: Reports as per HPI Hematologic/Lymphatic: Reports as per HPI Allergic/Immunologic: Reports as per HPI Past Medical History Past Medical History: Chest Pain / Angina, COPD, GERD/Reflux Additional Past Medical History / Comment(s): Chronic bronchitis, sinus tachycardia, chronic back pain, migraines, TANGIRNAQ bilaterally, bilateral tinnitis. History of Any Multi-Drug Resistant Organisms: None Reported Past Surgical History: Appendectomy, Tubal Ligation Additional Past Surgical History / Comment(s): pt states heart cath back in 2004 with no stents Past Anesthesia/Blood Transfusion Reactions: No Reported Reaction Past Psychological History: Anxiety, Depression Additional Psychological History / Comment(s): Pt resides with her spouse. She is independent. She has a nebulizer. Smoking Status: Current every day smoker Past Alcohol Use History: None Reported Additional Past Alcohol Use History / Comment(s): started smoking 1976 was smoking 3 ppd now down to 1-2 ppd Past Drug Use History: None Reported - Past Family History Brother(s) Family Medical History: Coronary Artery Disease (CAD), Myocardial Infarction ([place]) Additional Family Medical History / Comment(s): Brother had [place] in his early 40s, pacemaker Sister(s) Family Medical History: Mitral Valve Prolapse (MVP) Father Additional Family Medical History / Comment(s): "post op mrsa infection- from complications of that" Mother Family Medical History: Cancer Additional Family Medical History / Comment(s): Lung cancer Medications and Allergies Home Medications Medication Instructions Recorded Confirmed Type Budesonide-Formot 160-4.5 Mcg 2 puff INHALATION RT-BID #1 unit 12/01/17 12/26/22 Rx [Symbicort 160-4.5 Mcg Inhaler] Aspirin 325 mg PO DAILY 03/16/22 12/26/22 History Ipratropium-Albuterol Nebulize 3 ml INHALATION RT-TID PRN 11/03/22 12/26/22 History [Duoneb 0.5 mg-3 mg/3 ml Soln] HYDROcodone/APAP 5-325MG [[place] 1 tab PO Q12H PRN 12/26/22 12/26/22 History 5-325] Ibuprofen [Motrin] 800 mg PO Q12H PRN 12/26/22 12/26/22 History amLODIPine [Norvasc] 5 mg PO DAILY 12/26/22 12/26/22 History lamoTRIgine [LaMICtal] 100 mg PO BID 12/26/22 12/26/22 History Allergies Allergy/AdvReac Type Severity Reaction Status Date / Time metronidazole [From Flagyl] AdvReac NUMBNESS Verified 12/26/22 10:49 IN LEGS dust AdvReac Dyspnea Uncoded 12/26/22 10:49 Physical Exam Vitals: Vital Signs Temp Pulse Pulse Resp BP Pulse Ox 12/27/22 11:17 80 12/27/22 11:04 84 12/27/22 08:00 75 16 12/27/22 07:18 97.7 F 75 16 136/76 93 L 12/27/22 00:07 97.7 F 101 H 18 149/73 92 L 12/26/22 21:56 157/90 12/26/22 20:34 100 12/26/22 20:16 98 12/26/22 19:34 97.8 F 104 H 17 152/66 93 L 12/26/22 16:01 100 12/26/22 15:46 104 H Intake and Output 12/26/22 12/27/22 12/27/22 22:59 06:59 14:59 Intake Total 200 Output Total 700 Balance 200 -700 Intake: Oral 200 Output: Emesis 700 Other: Voiding Method Toilet Toilet # Voids 3 2 General appearance: no acute distress, the patient is currently on room air oxygen with a pulse ox of 93%, breathing is nonlabored Eyes: nonicteric, icteric ENT: oropharynx moist Neck: no lymphadenopathy Auscultation: Bilateral: diminished breath sounds, wheezes, rhonchi Percussion: Bilateral: not dull Tactile fremitus: Bilateral: normal Cardiovascular: reCardiac exam revealed the PMI to be normally situated and sized. The rhythm was regular and no extrasystoles were noted during several minutes of auscultation. The first and second heart sounds were normal and phys iologic splitting of the second heart sound was noted. There were no murmurs, rubs, clicks, or gallops. Gastrointestinal: norAbdominal exam revealed normal bowel sounds. The abdomen was soft, non-tender, and without masses, organomegaly, or appreciable enlargement of the abdominal aorta. Integumentary: Examination of the skin revealed no evidence of significant rashes, suspicious appearing nevi or other concerning lesions. Extremities: no cyanosis, mExamination of the extremities revealed easily palpable radial, femoral and pedal pulses. There was no cyanosis, clubbing or edema.ties Musculoskeletal: no deformities Gait: normal gait, normal posture normal mental status, non-focal exam, CN II-XII normal, motor strength normal and symmetric mood appropriate, affect normal Results - Laboratory Findings CBC and BMP: 12/26/22 08:33 12/26/22 08:33 PT/INR, D-dimer PT 10.2 sec (10.0-12.5) 12/26/22 08:33 INR 0.9 (<1.2) 12/26/22 08:33 D-Dimer 0.52 mg/L FEU (<0.60) 12/26/22 19:01 Abnormal lab findings: Abnormal Labs 12/26/22 12/26/22 08:33 08:33 Hgb 16.3 H Hct 49.4 H MCV 101.8 H Sodium 131 L Potassium 5.9 H Chloride 92 L Glucose 124 H Calcium 10.3 H - Diagnostic Findings Chest x-ray: image reviewed CT scan - chest: image reviewed Assessment and Plan Plan: Acute COPD exacerbation with shortness of breath. The patient is known to have chronic COPD maintain on accommodation Symbicort and Spiriva and albuterol updrafts on outpatient basis History of a right upper lobe pneumonia with some residual scarring in the right upper lobe area, likely old and chronic and the patient had a CAT scan of the chest that was done October 2022 that was reviewed. The current pro- calcitonin level is nonelevated Right middle lobe pulmonary nodule being monitored on outpatient basis History of smoking Atypical chest pain, normal echocardiogram History of smoking Acid reflux Sigmoid diverticulosis Left adnexal mass measuring 5.7 cm in size identified on a CAT scan of the abdomen and pelvis that was done on 04/12/2022, MRI was followed on 06/25/2022 showing a cystic lesion versus multiple simple cysts versus cystic neoplasm. Plan Continue bronchodilators Continue IV Solu-Medrol Doxycycline as an empiric antibiotic coverage No indication for an acute pneumonia Cardiology evaluation Possible discharge within the next 24-48 hours OB and TRANSCRIPTION follow-up regarding the adnexal mass
[2022-12-27 13:37] VITALS: BP 175/80; TEMP 98.3
[2022-12-27 15:20] VITALS: BMI 18.8
[2022-12-27] MEDS ORDERED: SODIUM POLYSTYRENE SULFONATE 15 GM/60 ML BOTTLE PO ONE (18:24)
[2022-12-27 19:24] LABS: African American GFR (CKD) >90 (>60 ml/min/1.73 sqM); Anion Gap 11 mmol/L; Blood Urea Nitrogen 11 mg/dL (7-17); Calcium 9.9 mg/dL (8.4-10.2); Carbon Dioxide 25 mmol/L (22-30); Chloride 94 mmol/L (98-107); Glucose 140 mg/dL (74-99); Non-African American GFR(CKD) >90 (>60 ml/min/1.73 sqM); Potassium 5.1 mmol/L (3.5-5.1); Sodium 130 mmol/L (137-145)
[2022-12-27 20:20] VITALS: PULSE 87
[2022-12-27] MEDS ORDERED: DOXYCYCLINE 100 MG CAP PO SCH (21:00)
[2022-12-27] MEDS: ZOLPIDEM 5 MG TAB PO PRN (21:40)
--- NOTE | 2022-12-27 23:01 | PN ---
PROGRESS NOTE This is a 62-year-old white female, who came with shortness of breath. She had polycythemia. Hemoglobin is 16.3, hematocrit 49.4, sodium 131, and potassium 5.9. D- dimer is negative. Troponins are negative x3. Procalcitonin is negative. Cardiology saw her. Echocardiogram was done. Cardiology consult, Pulmonary consult, is 34.7. Mild pulmonary hypertension. Normal function. Pulmonary saw the patient for shortness of breath. She has hyperkalemia, possibly give her a dose of medicine for that. PHYSICAL EXAMINATION: VITAL SIGNS: Temperature 97.8, pulse is low 100s, blood pressure 130s to 150s over 60s to 70s, and O2 93% on 2 L. SKIN: No rashes. EXTREMITIES: 1 to 2+ edema. Gait normal. MENTAL STATUS: Normal. MUSCULOSKELETAL: . HEART: S1, S2. PSYCH: Fair mood and affect. COPD exacerbation, on Symbicort, Spiriva, albuterol in the past, history of right lower lobe pneumonia, scarring in the right upper lobe. CT of the chest was reviewed, procalcitonin, GERD precautions, left adnexal mass, status post surgery, bronchodilators, doxycycline. Cardiology has seen and discharged her home. Prognosis guarded. MMODL / IJN: [id number] /
--- NOTE | 2023-01-11 19:55 | DS ---
DISCHARGE SUMMARY DISCHARGE MEDICATIONS: 1. DuoNeb q.i.d. 2. Lamictal 100 b.i.d. 3. Norvasc 5 mg daily. 4. [place] 5/325 q.12. 5. Symbicort 160/4.5 two puffs b.i.d. 6. Aspirin 325 daily. The patient had an echo, cardiac consultation, pulmonary consultation for atypical chest pain. Chest x-ray shows emphysema. D-dimer is 0.52. Procalcitonin is low. ASSESSMENT: Atypical chest pain. Cardiology said acute coronary syndrome, was ruled out. We treated her for COPD exacerbation, tracheobronchitis. Seen by Director Of Marketing Analytics. Prognosis is guarded. Follow up as an outpatient. Sent home on oral antibiotics, steroids, breathing treatments. Please see further discharge orders. MMODL / IJN: [id number] /
== END 2022-12-27 21:50 | disposition home or self-care (01) ==
LOC: EC 08:01 → INTOOBSV 09:58 → 3SCARD 09:58 → 6NMEDSUR 10:22 → UNDODISIN 12-27 21:50
PROVIDERS: ADMIT Family Medicine; ATTEND Family Medicine
DX: J44.1 Chronic obstructive pulmonary disease with (acute) exacerbation (principal); K21.9 Gastro-esophageal reflux disease without esophagitis; K86.1 Other chronic pancreatitis; G89.29 Other chronic pain; M54.9 Dorsalgia, unspecified; I10 Essential (primary) hypertension; F32.A Depression, unspecified; F41.9 Anxiety disorder, unspecified; R91.1 Solitary pulmonary nodule; K57.30 Diverticulosis of large intestine without perforation or abscess without bleeding; F17.200 Nicotine dependence, unspecified, uncomplicated; Z20.822 Contact with and (suspected) exposure to COVID-19; Z79.51 Long term (current) use of inhaled steroids; Z79.899 Other long term (current) drug therapy; Z79.82 Long term (current) use of aspirin; Z79.52 Long term (current) use of systemic steroids
CPT/HCPCS: 96376 ×2; 96361; 96365; 96366; 96372; 96375 ×2; 99285; 36415; 94640 ×4; 93005; 93306; 85379; 80053; 80048; 83605; 83735; 84484; 85025; 85610; 85730; 84145; 87635; 71046; G0378 ×2; J1644; J2930 ×2; J2405; J1170 ×2; 96374

== ENCOUNTER 2023-01-08 10:43 | Inpatient (IN) | payer OTHER ==
[2023-01-08] MEDS ORDERED: SODIUM CHLORIDE 0.9% 1,000 ML IV ONE (12:57)
[2023-01-08] MEDS ORDERED: FAMOTIDINE 20 MG/2 ML VIAL IV STA (12:57)
[2023-01-08] MEDS ORDERED: KETOROLAC 15 MG/ML 1 ML VIAL IVP STA (13:28)
[2023-01-08] MEDS ORDERED: DICYCLOMINE 20 MG TAB PO STA (13:28)
[2023-01-08] MEDS ORDERED: ONDANSETRON 4 MG/2 ML VIAL IVP STA (13:29)
[2023-01-08 13:31] LABS: Basophils # (A) 0.1 k/uL (0-0.2); Basophils % (A) 0 %; Eosinophils # (A) 0.2 k/uL (0-0.7); Eosinophils % (A) 1 %; HCT 43.3 % (34.0-46.0); HGB 14.7 gm/dL (11.4-16.0); Lymphocytes # (A) 1.9 k/uL (1.0-4.8); Lymphocytes % (A) 13 %; MCH 34.3 pg (25.0-35.0); MCHC 34.1 g/dL (31.0-37.0); MCV 100.6 fL (80.0-100.0); Mean Platelet Volume 7.4; Monocytes # (A) 0.7 k/uL (0-1.0); Monocytes % (A) 5 %; Neutrophils # (A) 11.6 k/uL (1.3-7.7); Neutrophils % (A) 80 %; Platelet Count 397 k/uL (150-450); RDW 12.4 % (11.5-15.5); WBC 14.6 k/uL (3.8-10.6)
[2023-01-08] MEDS ORDERED: HYDROmorphone 0.5 MG/0.5 ML SYRINGE IVP STA (13:44)
[2023-01-08 14:06] LABS: Appearance,Urine Clear (Clear); Bilirubin,Urine Negative (Negative); Blood,Urine Negative (Negative); Color,Urine Light Yellow; Glucose,Urine (UA) Negative (Negative); Ketones,Urine Trace (Negative); Leukocyte Esterase,Urine Small (Negative); Nitrite,Urine Negative (Negative); PH, Urine 7.5 (5.0-8.0); Protein,Urine Negative (Negative); RBC,Urine 1 /hpf (0-5); Specific Gravity,Urine 1.009 (1.001-1.035); Squamous Epithelial Cell,Urine 4 /hpf (0-4); Urobilinogen,Urine <2.0 mg/dL (<2.0); WBC,Urine 2 /hpf (0-5)
[2023-01-08 14:19] LABS: ALT 18 U/L (4-34); AST 25 U/L (14-36); African American GFR (CKD) >90 (>60 ml/min/1.73 sqM); Albumin 4.2 g/dL (3.5-5.0); Alkaline Phosphatase 91 U/L (38-126); Anion Gap 10 mmol/L; Blood Urea Nitrogen 7 mg/dL (7-17); Calcium 9.6 mg/dL (8.4-10.2); Carbon Dioxide 27 mmol/L (22-30); Chloride 95 mmol/L (98-107); Glucose 90 mg/dL (74-99); Lipase 36 U/L (23-300); Non-African American GFR(CKD) >90 (>60 ml/min/1.73 sqM); Potassium 4.3 mmol/L (3.5-5.1); Sodium 132 mmol/L (137-145); Total Bilirubin 0.7 mg/dL (0.2-1.3); Total Protein 6.8 g/dL (6.3-8.2)
--- NOTE | 2023-01-08 16:02 | CT ---
EXAMINATION TYPE: CT abdomen pelvis w con CT DLP: 575.0 mGycm, Automated exposure control for dose reduction was used. DATE OF EXAM: 01/08/2023 3:00 PM COMPARISON: None. CLINICAL INDICATION:Female, 62 years old with history of abdominal pain; upper abdominal pain TECHNIQUE: Axial CT of the abdomen and pelvis. Sagittal and coronal reformats were created on a [employer] workstation. Contrast used:100 cc mL of Isovue 300 with IV Contrast, (none if empty) Oral contrast used: without Oral Contrast (none if empty) FINDINGS: Exam limited by motion. LOWER CHEST: Mild subsegmental atelectasis in the lingula. Mild stranding in the right lung base, par ticularly laterally in the costophrenic recess favored to be scarring or subsegmental atelectasis. No sizable effusions. Heart is mildly enlarged without pericardial effusion. ABDOMEN LIVER: Appears enlarged measuring 19.1 cm in length. Patchy geographic areas of lower attenuation and focus of low-attenuation in the anterior liver along the fissure for ligamentum teres, most consiste nt with fatty infiltration. Otherwise unremarkable liver. GALLBLADDER AND BILE DUCTS: Unremarkable. PANCREAS: No acute abnormality. Mildly prominent pancreatic duct. SPLEEN: Hypoattenuating region with somewhat irregular but relatively well-defined margins in the mid to inferior spleen measuring around 3.3 cm, concerning for infarct; this was not present on prior st udy 11/07/2022. ADRENAL GLANDS: Thickened appearance suggestive of hyperplasia.. KIDNEYS AND URETERS: Kidneys enhance symmetrically. There is no evidence of hydronephrosis. Delayed i maging shows no additional abnormality. PELVIS BLADDER: Unremarkable REPRODUCTIVE: Uterus appears absent or atrophic. No evidence of pelvic mass. ABDOMEN & PELVIS STOMACH AND BOWEL: Stomach and small bowel are nondistended, no evidence of obstruction. Appendix not readily visualized. Moderate to large amount of stool throughout the colon without definite focal ab normality shown. PERITONEUM/RETROPERITONEUM: No evidence of pneumoperitoneum or free fluid. VASCULATURE: Moderate to severe diffuse mixed calcified and soft plaque throughout the aorta and bran ches. Moderate stenoses of the origins of the celiac and superior mesenteric arteries. COURTNEY not visual ized. Single bilateral renal arteries with mild stenosis at their origins. Irregular atherosclerotic plaque throughout the infrarenal aorta. Mild areas of saccular dilatation of the infrarenal aorta, mo re superior 2.3 cm and more inferior 2.2 cm without gross evidence of aneurysm or dissection. Plaques cause mostly mild narrowing of the aortic lumen, but greatest about 40% diameter above the bifurcati on. The bifurcation is patent. There is relatively heavy calcification of the bilateral iliac arteria l trees. Multiple mild/moderate stenoses of the common iliac, external iliac and femoral arteries pari aterally. These appear to remain patent however. Portal veins and splenic vein are enhancing. Splenic artery appears grossly patent in the limits of the exam. MUSCULOSKELETAL: No definite acute bony abnormality. Mild/moderate degenerative changes of the lumbar spine with mild canal and neural foraminal stenoses L2-L3, L3-L4, L4-L5. LYMPH NODES: No gross evidence for lymphadenopathy. SOFT TISSUE/ABDOMINAL WALL: Unremarkable IMPRESSION: 1. Extensive atherosclerotic disease involving the aorta and branch vessels, as above. 2. Splenic findings concerning for infarct. 3. Hepatomegaly and hepatic steatosis. 4. Moderate to large amount of colonic stool, correlate for constipation. No evidence of bowel obstr uction.
--- NOTE | 2023-01-08 16:46 | ED ---
General Adult HPI - General Chief complaint: Abdominal Pain Stated complaint: Abd Pain Time Seen by Provider: 01/08/23 11:38 Source: patient, RN notes reviewed Mode of arrival: ambulatory Limitations: no limitations - History of Present Illness Initial comments: 62-year-old female with a past medical history significant for angina, COPD, coronary artery disease presents to the emergency department with a chief complaint of left upper quadrant abdominal pain. She reports left upper quadrant abdominal pain for the last 3 days. She describes as sharp and worsening when she takes in a deep breath. She denies any known fevers, cough, chest pain, shortness of breath, nausea, vomiting,. She does report a history of diverticulosis. Denies any trauma or injury. She takes [place] at home with mild symptomatic improvement. Patient denies history of atrial fibrillation. Denies anticoagulant use. - Related Data Home Medications Medication Instructions Recorded Confirmed Aspirin 325 mg PO DAILY 03/16/22 12/26/22 Ipratropium-Albuterol Nebulize 3 ml INHALATION RT-TID PRN 11/03/22 12/26/22 [Duoneb 0.5 mg-3 mg/3 ml Soln] HYDROcodone/APAP 5-325MG [[place] 1 tab PO Q12H PRN 12/26/22 12/26/22 5-325] Ibuprofen [Motrin] 800 mg PO Q12H PRN 12/26/22 12/26/22 amLODIPine [Norvasc] 5 mg PO DAILY 12/26/22 12/26/22 lamoTRIgine [LaMICtal] 100 mg PO BID 12/26/22 12/26/22 Previous Rx's Medication Instructions Recorded Budesonide-Formot 160-4.5 Mcg 2 puff INHALATION RT-BID #1 unit 12/01/17 [Symbicort 160-4.5 Mcg Inhaler] Allergies Allergy/AdvReac Type Severity Reaction Status Date / Time metronidazole [From Flagyl] AdvReac NUMBNESS Verified 01/08/23 10:50 IN LEGS dust AdvReac Dyspnea Uncoded 01/08/23 10:50 Review of Systems ROS Statement: Those systems with pertinent positive or pertinent negative responses have been documented in the HPI. ROS Other: All systems not noted in ROS Statement are negative. Past Medical History Past Medical History: Chest Pain / Angina, COPD, GERD/Reflux Additional Past Medical History / Comment(s): Chronic bronchitis, sinus tachycardia, chronic back pain, migraines, WAINWRIGHT bilaterally, bilateral tinnitis. History of Any Multi-Drug Resistant Organisms: None Reported Past Surgical History: Appendectomy, Tubal Ligation Additional Past Surgical History / Comment(s): pt states heart cath back in 2004 with no stents Past Anesthesia/Blood Transfusion Reactions: No Reported Reaction Past Psychological History: Anxiety, Depression Smoking Status: Current every day smoker Past Alcohol Use History: None Reported Past Drug Use History: None Reported - Past Family History Brother(s) Family Medical History: Coronary Artery Disease (CAD), Myocardial Infarction ([place]) Additional Family Medical History / Comment(s): Brother had [place] in his early 40s, pacemaker Sister(s) Family Medical History: Mitral Valve Prolapse (MVP) Father Additional Family Medical History / Comment(s): "post op mrsa infection- from complications of that" Mother Family Medical History: Cancer Additional Family Medical History / Comment(s): Lung cancer General Exam - General Exam Comments Initial Comments: General: Alert, in no acute distress Head: atraumatic normocephalic. Eyes PERRL, EOMI intact, mucous membranes moist Respiratory: Lungs clear to auscultation bilaterally Cardiovascular: Heart rate regular rate and rhythm Abdominal: Soft without guarding or rebound, left upper quadrant abdominal tenderness Extremities: Normal inspection with full range of motion and normal capillary refill Neuroogic: alert and oriented 3, CN II-XII intact, able to ambulate with steady gait Skin: warm dry and intact with normal color Limitations: no limitations Course Vital Signs 01/08/23 01/08/23 10:48 15:28 Temperature 97.7 F Pulse Rate 107 H 60 Respiratory 22 16 Rate Blood Pressure 139/86 130/74 O2 Sat by Pulse 97 96 Oximetry - Reevaluation(s) Reevaluation #1: 01/08/23 1:46 Pt reevaluated. Patient reports persistent pain. 01/08/23 16:[address] Gongora who agrees and accepts the patient for admission with recommended consult to vascular. EKG Findings - EKG Comments: EKG Findings:: I interpreted the following: EKG performed at 16:32 rate 88 bpm normal sinus rhythm with occasional SVTs FL interval 154, QRS duration 104, QT/QTC 343/389 Medical Decision Making - Medical Decision Making Was pt. sent in by a medical professional or institution (ADENIKE Busch, PATIENT CONSUMER MARKETER, urgent care, hospital, or prison...) When possible be specific @ -[No] Did you speak to anyone other than the patient for history (EMS, parent, family, police, friend...)? What history was obtained from this source @ -[No] Did you review nursing and triage notes (agree or disagree)? Why? @ -[I reviewed and agree with nursing and triage notes] Were old charts reviewed (outside hosp., previous admission, EMS record, old EKG, old radiological studies, urgent care reports/EKG's, prison records)? Report findings @ -[No old charts were reviewed] Differential Diagnosis (chest pain, altered mental status, abdominal pain women, abdominal pain men, vaginal bleeding, weakness, fever, dyspnea, syncope, headache, dizziness, GI bleed, back pain, seizure, CVA, palpatations, mental health, musculoskeletal)? @ -[not applicable] EKG interpreted by me (3pts min.). @ -[As above] X-rays interpreted by me (1pt min.). @ -[None done] CT interpreted by me (1pt min.). @ -yes U/S interpreted by me (1pt. min.). @ -[None done] What testing was considered but not performed or refused? (CT, X-rays, U/S, labs)? Why? @ -[None] What meds were considered but not given or refused? Why? @ -[None] Did you discuss the management of the patient with other professionals (professionals i.e. ADENIKE Busch, PATIENT CONSUMER MARKETER, lab, RT, psych nurse, social work job titles, aircraft servicer, teacher, job placement officer, manager case)? Give summary @ -[No] Was smoking cessation discussed for >3mins.? @ -[No] Was critical care preformed (if so, how long)? @ -[No] Were there social determinants of health that impacted care today? How? (Homele ssness, low income, unemployed, alcoholism, drug addiction, transportation, low edu. Level, literacy, decrease access to med. care, senior living, rehab)? @ -[No] Was there de-escalation of care discussed even if they declined (Discuss DNR or withdrawal of care, Hospice)? DNR status @ -[No] What co-morbidities impacted this encounter? (DM, HTN, Smoking, COPD, CAD, Cancer, CVA, ARF, Chemo, Hep., AIDS, mental health diagnosis, sleep apnea, morbid obesity)? @ -COPD, Smoking Was patient admitted / discharged? Hospital course, mention meds given and route, prescriptions, significant lab abnormalities, going to OR and other pertinent info. @ Admission. This is a 62-year-old female presents emergency Department with left upper quadrant abdominal pain. Patient has a history physical exam performed on the ED. Vital signs stable. Patient afebrile. Heart rate regular rate and rhythm, lungs are to auscultation bilaterally abdomen soft with mild left upper quadrant abdominal tenderness. No CVA tenderness. Patient had laboratory studies performed which revealed: WBC 14.6, hemoglobin 14.7 platelets 397 d-dimer 0.95 BUN 7, creatinine 0.44 urinalysis negative. I interpreted the following: CT reveals 22 cm lesion within the spleen. Splenic artery remains patent. Despite multiple attempts for pain management patient still reports pain. Case is discussed with Dr. Clemente Gongora who agrees and accepts the patient for further admission with recommended consult to vascular. Case is discussed with Dr. Prado, [facility] who agrees with plan of care Undiagnosed new problem with uncertain prognosis? @ -[No] Drug Therapy requiring intensive monitoring for toxicity (Heparin, Nitro, Insulin, Cardizem)? @ -[No] Were any procedures done? @ -[No] Diagnosis/symptom? @ -LUQ abdominal Pain - Splenic Infarction Acute, or Chronic, or Acute on Chronic? @ -Acute Uncomplicated (without systemic symptoms) or Complicated (systemic symptoms)? Uncomplicated Side effects of treatment? @ -[No] Exacerbation, Progression, or Severe Exacerbation? @ -[No] Poses a threat to life or bodily function? How? (Chest pain, [place], [place], pneumonia, PE, COPD, DKA, ARF, appy, cholecystitis, CVA, Diverticulitis, Homicidal, Suicidal, threat to staff... and all critical care pts) @ -yes, - Lab Data Result diagrams: 01/08/23 13:13 01/08/23 13:13 Lab Results 01/08/23 01/08/23 01/08/23 Range/Units 13:13 13:13 13:13 WBC 14.6 H (3.8-10.6) k/uL RBC 4.30 (3.80-5.40) m/uL Hgb 14.7 (11.4-16.0) gm/dL Hct 43.3 (34.0-46.0) % MCV 100.6 H (80.0-100.0) fL MCH 34.3 (25.0-35.0) pg MCHC 34.1 (31.0-37.0) g/dL RDW 12.4 (11.5-15.5) % Plt Count 397 (150-450) k/uL MPV 7.4 Neutrophils % 80 % Lymphocytes % 13 % Monocytes % 5 % Eosinophils % 1 % Basophils % 0 % Neutrophils # 11.6 H (1.3-7.7) k/uL Lymphocytes # 1.9 (1.0-4.8) k/uL Monocytes # 0.7 (0-1.0) k/uL Eosinophils # 0.2 (0-0.7) k/uL Basophils # 0.1 (0-0.2) k/uL D-Dimer (<0.60) mg/L FEU Sodium 132 L (137-145) mmol/L Potassium 4.3 (3.5-5.1) mmol/L Chloride 95 L (98-107) mmol/L Carbon Dioxide 27 (22-30) mmol/L Anion Gap 10 mmol/L BUN 7 (7-17) mg/dL Creatinine 0.44 L (0.52-1.04) mg/dL Est GFR (CKD-EPI)AfAm >90 (>60 ml/min/1.73 sqM) Est GFR (CKD-EPI)NonAf >90 (>60 ml/min/1.73 sqM) Glucose 90 (74-99) mg/dL Plasma Lactic Acid Dio (0.7-2.0) mmol/L Calcium 9.6 (8.4-10.2) mg/dL Total Bilirubin 0.7 (0.2-1.3) mg/dL AST 25 (14-36) U/L ALT 18 (4-34) U/L Alkaline Phosphatase 91 (38-126) U/L Total Protein 6.8 (6.3-8.2) g/dL Albumin 4.2 (3.5-5.0) g/dL Lipase 36 (23-300) U/L Urine Color Light Yellow Urine Appearance Clear (Clear) Urine pH 7.5 (5.0-8.0) Ur Specific [place] 1.009 (1.001-1.035) Urine Protein Negative (Negative) Urine Glucose (UA) Negative (Negative) Urine Ketones Trace H (Negative) Urine Blood Negative (Negative) Urine Nitrite Negative (Negative) Urine Bilirubin Negative (Negative) Urine Urobilinogen <2.0 (<2.0) mg/dL Ur Leukocyte Esterase Small H (Negative) Urine RBC 1 (0-5) /hpf Urine WBC 2 (0-5) /hpf Ur Squamous Epith Cells 4 (0-4) /hpf Influenza Type A (PCR) (Not Detectd) Influenza Type B (PCR) (Not Detectd) RSV (PCR) (Not Detectd) SARS-CoV-2 (PCR) (Not Detectd) 01/08/23 01/08/23 01/08/23 Range/Units 13:13 13:20 15:23 WBC (3.8-10.6) k/uL RBC (3.80-5.40) m/uL Hgb (11.4-16.0) gm/dL Hct (34.0-46.0) % MCV (80.0-100.0) fL MCH (25.0-35.0) pg MCHC (31.0-37.0) g/dL RDW (11.5-15.5) % Plt Count (150-450) k/uL MPV Neutrophils % % Lymphocytes % % Monocytes % % Eosinophils % % Basophils % % Neutrophils # (1.3-7.7) k/uL Lymphocytes # (1.0-4.8) k/uL Monocytes # (0-1.0) k/uL Eosinophils # (0-0.7) k/uL Basophils # (0-0.2) k/uL D-Dimer 0.95 H (<0.60) mg/L FEU Sodium (137-145) mmol/L Potassium (3.5-5.1) mmol/L Chloride (98-107) mmol/L Carbon Dioxide (22-30) mmol/L Anion Gap mmol/L BUN (7-17) mg/dL Creatinine (0.52-1.04) mg/dL Est GFR (CKD-EPI)AfAm (>60 ml/min/1.73 sqM) Est GFR (CKD-EPI)NonAf (>60 ml/min/1.73 sqM) Glucose (74-99) mg/dL Plasma Lactic Acid Dio 1.8 (0.7-2.0) mmol/L Calcium (8.4-10.2) mg/dL Total Bilirubin (0.2-1.3) mg/dL AST (14-36) U/L ALT (4-34) U/L Alkaline Phosphatase (38-126) U/L Total Protein (6.3-8.2) g/dL Albumin (3.5-5.0) g/dL Lipase (23-300) U/L Urine Color Urine Appearance (Clear) Urine pH (5.0-8.0) Ur Specific [place] (1.001-1.035) Urine Protein (Negative) Urine Glucose (UA) (Negative) Urine Ketones (Negative) Urine Blood (Negative) Urine Nitrite (Negative) Urine Bilirubin (Negative) Urine Urobilinogen (<2.0) mg/dL Ur Leukocyte Esterase (Negative) Urine RBC (0-5) /hpf Urine WBC (0-5) /hpf Ur Squamous Epith Cells (0-4) /hpf Influenza Type A (PCR) Not Detected (Not Detectd) Influenza Type B (PCR) Not Detected (Not Detectd) RSV (PCR) Not Detected (Not Detectd) SARS-CoV-2 (PCR) Not Detected (Not Detectd) Disposition Clinical Impression: LUQ abdominal pain, Splenic infarction Disposition: ADMITTED IP TO THIS HOSP Condition: Stable Is patient prescribed a controlled substance at d/c from ED?: No Time of Disposition: 17:03
[2023-01-08] MEDS ORDERED: NALOXONE 0.4 MG/ML 1 ML VIAL IV PRN (17:06)
[2023-01-08] MEDS: HYDROmorphone 0.5 MG/0.5 ML SYRINGE IVP PRN ×2 (17:15→21:00)
[2023-01-08] MEDS: SODIUM CHLORIDE 0.9% 1,000 ML IV SCH (17:16)
[2023-01-08 17:41] LABS: Basophils % (A) 0 %; Eosinophils # (A) 0.2 k/uL (0-0.7); Eosinophils % (A) 1 %; HCT 41.3 % (34.0-46.0); HGB 14.2 gm/dL (11.4-16.0); Lymphocytes # (A) 1.8 k/uL (1.0-4.8); Lymphocytes % (A) 13 %; MCH 34.4 pg (25.0-35.0); MCHC 34.5 g/dL (31.0-37.0); MCV 99.9 fL (80.0-100.0); Mean Platelet Volume 7.4; Monocytes # (A) 0.7 k/uL (0-1.0); Monocytes % (A) 5 %; Neutrophils # (A) 10.7 k/uL (1.3-7.7); Neutrophils % (A) 79 %; Platelet Count 353 k/uL (150-450); RBC 4.13 m/uL (3.80-5.40); RDW 12.5 % (11.5-15.5); WBC 13.5 k/uL (3.8-10.6)
[2023-01-08 17:51] LABS: African American GFR (CKD) >90 (>60 ml/min/1.73 sqM); Anion Gap 9 mmol/L; Blood Urea Nitrogen 5 mg/dL (7-17); Calcium 8.9 mg/dL (8.4-10.2); Carbon Dioxide 22 mmol/L (22-30); Chloride 98 mmol/L (98-107); Glucose 82 mg/dL (74-99); Non-African American GFR(CKD) >90 (>60 ml/min/1.73 sqM); Potassium 3.9 mmol/L (3.5-5.1); Sodium 129 mmol/L (137-145)
[2023-01-08] MEDS: amLODIPine 5 MG TAB PO SCH (21:56)
[2023-01-08] MEDS: lamoTRIgine 100 MG TAB PO SCH (21:56)
[2023-01-08] MEDS: buPROPion SR 150 MG TABLET.ER PO SCH (21:56)
--- NOTE | 2023-01-09 00:27 | CT ---
EXAM: CT Angiography Abdomen and Pelvis With Intravenous Contrast CLINICAL HISTORY: CT Reason: high d-dimer TECHNIQUE: Axial computed tomographic angiography images of the abdomen and pelvis with intravenous contrast. CTDI is 6.5 mGy and DLP is 349.8 mGy-cm. This CT exam was performed using one or more of the following dose reduction techniques: automated exposure control, adjustment of the mA and/or kV according to patient size, and/or use of iterative reconstruction technique. MIP reconstructed images were created and reviewed. COMPARISON: April 12, 2022 FINDINGS: VASCULATURE: Aorta: There is severe atherosclerotic changes throughout the abdominal aorta which is nondilated. There is no aneurysm or dissection. 50% stenosis of the distal abdominal aorta. There is 40% stenosis of the common iliac arteries bilaterally and proximal external iliac arteries. Celiac trunk and mesenteric arteries: 20% stenosis of the superior mesenteric artery. Renal arteries: The renal arteries appear widely patent bilaterally. No occlusion or significant stenosis. Iliac arteries: No acute findings. No occlusion or significant stenosis. Lung bases: Unremarkable. No mass. No consolidation. ABDOMEN: Liver: Unremarkable. No mass. Gallbladder and bile ducts: Unremarkable. No calcified stones. No ductal dilation. Pancreas: Unremarkable. No ductal dilation. No mass. Spleen: There is an approximately 3.5 cm wedge-shaped area of decreased enhancement of the midportion of the spleen suggesting infarct. The celiac artery and splenic artery appear widely patent. No thrombus is identified. Adrenals: Unremarkable. No mass. Kidneys and ureters: Unremarkable. No hydronephrosis. No solid mass. Stomach and bowel: Bowel loops are nondilated. No acute inflammatory changes are seen involving the bowel. No mucosal thickening. PELVIS: Appendix: No findings to suggest acute appendicitis. Bladder: The urinary bladder is filled with contrast and otherwise unremarkable. Reproductive: Unremarkable as visualized. ABDOMEN and PELVIS: Intraperitoneal space: Unremarkable. No significant fluid collection. No free air. Bones/joints: Mild degenerative changes in the spine. No acute fracture or subluxation is seen. Soft tissues: Unremarkable. Lymph nodes: Unremarkable. No enlarged lymph nodes. IMPRESSION: 1. There is severe atherosclerotic changes throughout the abdominal aorta which is nondilated. There is no aneurysm or dissection. 2. 50% stenosis of the distal abdominal aorta. There is 40% stenosis of the common iliac arteries bilaterally and proximal external iliac arteries. 3. There is an approximately 3.5 cm wedge-shaped area of decreased enhancement of the midportion of the spleen suggesting infarct. The celiac artery and splenic artery appear widely patent. No thrombus is identified. 4. Bowel loops are nondilated. No acute inflammatory changes are seen involving the bowel.
[2023-01-09] MEDS: IPRATROPIUM-ALBUTEROL 3 ML NEB INHALATION PRN ×4 (00:33→19:39)
--- NOTE | 2023-01-09 00:35 | CT ---
EXAM: CT Angiography Chest With Intravenous Contrast CLINICAL HISTORY: CT Reason: high d-dimer TECHNIQUE: Axial computed tomographic angiography images of the chest with intravenous contrast. CTDI is 12 mGy and DLP is 206.5 mGy-cm. This CT exam was performed using one or more of the following dose reduction techniques: automated exposure control, adjustment of the mA and/or kV according to patient size, and/or use of iterative reconstruction technique. MIP reconstructed images were created and reviewed. COMPARISON: No relevant prior studies available. FINDINGS: Pulmonary arteries: The pulmonary arterial tree is well opacified with contrast. No pulmonary embolism is identified. Aorta: The thoracic aorta is mildly calcified but nondilated. There is no aneurysm or dissection. Lungs: Unremarkable. No mass. No consolidation. Pleural space: Mild to moderate emphysematous changes in the lines with central bronchial wall thickening consistent with bronchitis. Coarse linear densities in the right upper lobe consistent with scarring. No acute appearing airspace infiltrate, pneumothorax, or pleural effusion is seen. Heart: The heart is mildly enlarged. Mild coronary calcification is present. No pericardial effusion. No evidence of RV dysfunction. Bones/joints: Mild degenerative changes in the spine. No acute fracture or destructive bone lesion is seen. No dislocation. Soft tissues: Unremarkable. Lymph nodes: Unremarkable. No enlarged lymph nodes. IMPRESSION: 1. The pulmonary arterial tree is well opacified with contrast. No pulmonary embolism is identified. 2. Mild to moderate emphysematous changes in the lines with central bronchial wall thickening consistent with bronchitis. Coarse linear densities in the right upper lobe consistent with scarring. No acute appearing airspace infiltrate, pneumothorax, or pleural effusion is seen. 3. The thoracic aorta is mildly calcified but nondilated. There is no aneurysm or dissection.
[2023-01-09] MEDS: HYDROmorphone 0.5 MG/0.5 ML SYRINGE IVP PRN ×5 (01:02→23:36)
--- NOTE | 2023-01-09 07:43 | HP ---
HISTORY AND PHYSICAL HISTORY OF PRESENT ILLNESS: A 62-year-old white female with history of angina, COPD, coronary artery disease, and upper quadrant abdominal pain. Denies any fever, cough, chest pain, shortness of breath, nausea, or vomiting. History of diverticulosis. History of atrial fibrillation. Denies anticoagulation. HOME MEDICINES: Reviewed. ALLERGIES: Flagyl and dust. REVIEW OF SYSTEMS: Fourteen-point review of systems is otherwise negative. PAST MEDICAL HISTORY: Chest pain, angina, GERD, and bilateral tinnitus. PAST SURGICAL HISTORY: Appendectomy and tubal ligation. PSYCHIATRIC HISTORY: Anxiety and depression. SOCIAL HISTORY: Current everyday smoker. No alcohol. FAMILY HISTORY: Brother, coronary artery disease and myocardial infarction. Sister, mitral valve prolapse. Mother, cancer of the lung. PHYSICAL EXAMINATION: VITAL SIGNS: Temperature 97.7, pulse 60s to 107, respiratory rate 16 to 22, blood pressure , O2 of 97%. ABDOMEN: upper quadrant abdominal pain. Mild guarding. CARDIOVASCULAR: S1 and S2. LUNGS: Wheezes x4. PSYCHIATRIC: Fair mood and affect. NEUROLOGIC: Alert and oriented x3. ASSESSMENT AND PLAN: abdominal pain, possible splenic infarct. Get Vascular consult and Hematology consult. Prognosis is guarded. MMODL / IJN: [id number] /
[2023-01-09] MEDS: SYMBICORT 160-4.5 MCG INHALER INHALATION SCH ×2 (08:16→19:39)
[2023-01-09] MEDS ORDERED: HEPARIN SODIUM 1,000 UN/ML (10ML VL) IV ONE (09:24)
[2023-01-09] MEDS: lamoTRIgine 100 MG TAB PO SCH ×2 (10:18→20:43)
[2023-01-09] MEDS: amLODIPine 5 MG TAB PO SCH ×2 (10:18→20:43)
[2023-01-09] MEDS: buPROPion SR 150 MG TABLET.ER PO SCH ×2 (10:18→20:43)
[2023-01-09 10:31] LABS: Basophils % (A) 0 %; Eosinophils # (A) 0.1 k/uL (0-0.7); Eosinophils % (A) 1 %; HCT 42.1 % (34.0-46.0); HGB 13.7 gm/dL (11.4-16.0); Lymphocytes # (A) 1.4 k/uL (1.0-4.8); Lymphocytes % (A) 10 %; MCH 33.5 pg (25.0-35.0); MCHC 32.6 g/dL (31.0-37.0); MCV 102.6 fL (80.0-100.0); Macrocytosis Slight; Mean Platelet Volume 7.3; Monocytes # (A) 0.7 k/uL (0-1.0); Monocytes % (A) 5 %; Neutrophils # (A) 12.1 k/uL (1.3-7.7); Neutrophils % (A) 84 %; Platelet Count 400 k/uL (150-450); RDW 12.3 % (11.5-15.5); WBC 14.4 k/uL (3.8-10.6)
[2023-01-09 10:57] LABS: INR 0.9 (<1.2)
[2023-01-09] MEDS: HEPARIN SOD,PORK IN 0.45% NACL 25,000 UNIT in 0.45% NACL 1 250ML.BAG IV SCH (11:16)
[2023-01-09] MEDS: SODIUM CHLORIDE 0.9% 1,000 ML IV SCH ×2 (11:33→23:40)
--- NOTE | 2023-01-09 11:54 | P.GSCN ---
History of Present Illness Consult date: 01/09/23 Reason for Consult: splenic infarct Requesting physician: Elma Barrett History of present illness: This is a 62-year-old female who presented to the emergency department yesterday with complaints of left-sided rib pain and upper quadrant abdominal pain. She has a past medical history significant for angina, COPD, coronary artery disease, and current every day smoker, half pack per day for the last 40 years. States that she's had some shortness of breath and painful to taken a deep breath on the left side. She had a CT of the abdomen which showed possible splenic infarct. She had further workup with a CT angiogram of the abdomen and pelvis as well as a CTA of the chest. CTA of the abdomen and pelvis reported severe arthrosclerotic changes throughout the abdominal aorta which is nondilated. No aneurysm or dissection. 50% stenosis of the distal abdominal aorta, 40% stenosis of common iliac arteries bilaterally and proximal external iliac arteries. Approximate 3.5 cm wedge-shaped area of decreased enhancement of the midportion of the spleen suggesting infarct. Celiac artery and splenic artery appear widely patent no thrombus is identified. Bowel loops are nondilated no acute inflammatory changes. Vascular surgery was consulted for splenic infarct. Chest CTA negative for pulmonary embolism. Patient denies any previous history of underlying clotting disorders, denies any history of atrial fibrillation, previous DVT or pulmonary embolism. Patient denies any history of GI bleed, brain bleed or any other contraindication for anticoagulation. Patient denies any chest pain but states that she does have some discomfort when taking in a deep breath, still having some pain to the left upper abdomen with palpation. Some shortness of breath, again pain with inspiration denies any chest pain. She denies any pain in her lower extremities. Patient did have a positive d-dimer 0.95. WBC 14.4 hemoglobin 13.7 platelet count 400,000 INR 0.9 Review of Systems A 14 point review systems was completed all pertinent positives and negatives as stated in the HPI. Past Medical History Past Medical History: Chest Pain / Angina, COPD, GERD/Reflux Additional Past Medical History / Comment(s): Chronic bronchitis, sinus tachycardia, chronic back pain, migraines, [place] bilaterally, bilateral tinnitis. History of Any Multi-Drug Resistant Organisms: None Reported Past Surgical History: Appendectomy, Tubal Ligation Additional Past Surgical History / Comment(s): pt states heart cath back in 2004 with no stents Past Anesthesia/Blood Transfusion Reactions: No Reported Reaction Past Psychological History: Anxiety, Depression Additional Psychological History / Comment(s): Pt resides with her spouse. She is independent. She has a nebulizer. Smoking Status: Current every day smoker Past Alcohol Use History: None Reported Additional Past Alcohol Use History / Comment(s): started smoking 1977 was smoking 3 ppd now down to 1-2 ppd Past Drug Use History: None Reported - Past Family History Brother(s) Family Medical History: Coronary Artery Disease (CAD), Myocardial Infarction ([place]) Additional Family Medical History / Comment(s): Brother had [place] in his early 40s, pacemaker Sister(s) Family Medical History: Mitral Valve Prolapse (MVP) Father Additional Family Medical History / Comment(s): "post op mrsa infection- from complications of that" Mother Family Medical History: Cancer Additional Family Medical History / Comment(s): Lung cancer Medications and Allergies Home Medications Medication Instructions Recorded Confirmed Type Budesonide-Formot 160-4.5 Mcg 2 puff INHALATION RT-BID #1 unit 12/01/17 01/08/23 Rx [Symbicort 160-4.5 Mcg Inhaler] Ipratropium-Albuterol Nebulize 3 ml INHALATION RT-TID PRN 11/03/22 01/08/23 History [Duoneb 0.5 mg-3 mg/3 ml Soln] HYDROcodone/APAP 5-325MG [[place] 1 tab PO Q12H PRN 12/26/22 01/08/23 History 5-325] Ibuprofen [Motrin] 800 mg PO Q12H PRN 12/26/22 01/08/23 History amLODIPine [Norvasc] 5 mg PO BID 12/26/22 01/08/23 History lamoTRIgine [LaMICtal] 100 mg PO BID 12/26/22 01/08/23 History buPROPion SR [Wellbutrin SR] 150 mg PO BID 01/08/23 01/08/23 History Allergies Allergy/AdvReac Type Severity Reaction Status Date / Time metronidazole [From Flagyl] AdvReac NUMBNESS Verified 01/08/23 19:27 IN LEGS dust AdvReac Dyspnea Uncoded 01/08/23 19:27 Surgical - Exam Vital Signs Temp Pulse Resp BP Pulse Ox 97.7 F 107 H 22 139/86 97 01/08/23 10:48 01/08/23 10:48 01/08/23 10:48 01/08/23 10:48 01/08/23 10:48 General appearance: The patient is alert, oriented, appears in no acute dist ress. HET: Head is normocephalic and atraumatic. Pupils are equal and reactive. Neck: Supple. Heart: Regular. Lungs: Equal expansion, normal respiratory effort. Abdomen: Soft, left upper quadrant tenderness under rib cage more lateral, nondistended. Extremities: Normal skin color and turgor. Palpable bilateral DP pulses. Neurological: No focal deficits. Alert and oriented. Results - Labs 01/09/23 10:03 01/08/23 17:29 Abnormal Lab Results - Last 24 Hours (Table) 01/08/23 01/08/23 01/08/23 Range/Units 13:13 13:13 13:13 WBC 14.6 H (3.8-10.6) k/uL MCV 100.6 H (80.0-100.0) fL Neutrophils # 11.6 H (1.3-7.7) k/uL D-Dimer (<0.60) mg/L FEU Sodium 132 L (137-145) mmol/L Chloride 95 L (98-107) mmol/L BUN (7-17) mg/dL Creatinine 0.44 L (0.52-1.04) mg/dL Urine Ketones Trace H (Negative) Ur Leukocyte Esterase Small H (Negative) 01/08/23 01/08/23 01/08/23 Range/Units 15:23 17:29 17:29 WBC 13.5 H (3.8-10.6) k/uL MCV (80.0-100.0) fL Neutrophils # 10.7 H (1.3-7.7) k/uL D-Dimer 0.95 H (<0.60) mg/L FEU Sodium 129 L (137-145) mmol/L Chloride (98-107) mmol/L BUN 5 L (7-17) mg/dL Creatinine 0.35 L (0.52-1.04) mg/dL Urine Ketones (Negative) Ur Leukocyte Esterase (Negative) Diabetes panel 01/08/23 01/08/23 Range/Units 13:13 17:29 Sodium 132 L 129 L (137-145) mmol/L Potassium 4.3 3.9 (3.5-5.1) mmol/L Chloride 95 L 98 (98-107) mmol/L Carbon Dioxide 27 22 (22-30) mmol/L BUN 7 5 L (7-17) mg/dL Creatinine 0.44 L 0.35 L (0.52-1.04) mg/dL Glucose 90 82 (74-99) mg/dL Calcium 9.6 8.9 (8.4-10.2) mg/dL AST 25 (14-36) U/L ALT 18 (4-34) U/L Alkaline Phosphatase 91 (38-126) U/L Total Protein 6.8 (6.3-8.2) g/dL Albumin 4.2 (3.5-5.0) g/dL Calcium panel 01/08/23 01/08/23 Range/Units 13:13 17:29 Calcium 9.6 8.9 (8.4-10.2) mg/dL Albumin 4.2 (3.5-5.0) g/dL Pituitary panel 01/08/23 01/08/23 Range/Units 13:13 17:29 Sodium 132 L 129 L (137-145) mmol/L Potassium 4.3 3.9 (3.5-5.1) mmol/L Chloride 95 L 98 (98-107) mmol/L Carbon Dioxide 27 22 (22-30) mmol/L BUN 7 5 L (7-17) mg/dL Creatinine 0.44 L 0.35 L (0.52-1.04) mg/dL Glucose 90 82 (74-99) mg/dL Calcium 9.6 8.9 (8.4-10.2) mg/dL Adrenal panel 01/08/23 01/08/23 Range/Units 13:13 17:29 Sodium 132 L 129 L (137-145) mmol/L Potassium 4.3 3.9 (3.5-5.1) mmol/L Chloride 95 L 98 (98-107) mmol/L Carbon Dioxide 27 22 (22-30) mmol/L BUN 7 5 L (7-17) mg/dL Creatinine 0.44 L 0.35 L (0.52-1.04) mg/dL Glucose 90 82 (74-99) mg/dL Calcium 9.6 8.9 (8.4-10.2) mg/dL Total Bilirubin 0.7 (0.2-1.3) mg/dL AST 25 (14-36) U/L ALT 18 (4-34) U/L Alkaline Phosphatase 91 (38-126) U/L Total Protein 6.8 (6.3-8.2) g/dL Albumin 4.2 (3.5-5.0) g/dL - Imaging Comments: CT abdomen and pelvis with contrast reports extensive arthrosclerotic disease involving the aorta and branch vessels as above. Splenic findings concerning for infarct. Hepatomegaly with hepatic stay ptosis. Moderate to large amount of colonic stool, correlate for constipation, no evidence of bowel obstruction. CT angiography abdomen and pelvis reports severe arthrosclerotic changes throughout the abdominal aorta which is nondilated. No aneurysm or dissection. 50% stenosis of the distal abdominal aorta. There is 40% stenosis of the common iliac arteries bilaterally and proximal external iliac arteries. Approximately 3.5 cm wedge-shaped area of decreased enhancement of the midportion of the spleen suggesting infarct. The celiac artery and splenic artery appear widely patent. No thrombus is identified. Follow-ups are nondilated. No acute inflammatory changes seen involving the bowel. CT angiography chest reports pulmonary arterial tree well opacified with contrast. No pulmonary embolism identified. Mild to moderate emphysematous changes in the lines with central bronchial wall thickening consistent with bronchitis. Coarse linear densities in the right upper lobe consistent with scarring. No acute appearing airspace infiltrate, pneumothorax or pleural effusion seen. The thoracic aorta is mildly calcified but nondilated. No aneurysm or dissection. EKG: report reviewed (Rate 88 bpm normal Sinus rhythm with occasional SVTs CO interval 154, QRS duration 104, QT/QTC 343/389), image reviewed Assessment and Plan Assessment: 1. Splenic infarct 2. Abdominal pain 3. COPD 4. History of coronary artery disease 5. Daily smoker half-pack per day, 40 years Plan: 1. Echocardiogram ordered 2. Start heparin drip per protocol 3. Recommend smoking cessation 4. Await recommendations from hematology 5. Consult cardiology, evaluate for possible source for splenic infarct 6. No indication for any vascular surgical intervention. Thank you for this consultation, we'll continue to follow. The impression and plan of care has been dictated as directed. Dr. Cleopatra Montgomery performed a history and examination of this patient, discussed the same with the dictator. I agree with the dictator's note ,documented as a scribe. Any additional findings or plans will be noted.
[2023-01-09] MEDS: ASPIRIN 81 MG PO SCH (14:36)
--- NOTE | 2023-01-09 15:47 | P.CONS ---
History of Present Illness - Reason for Consult Consult date: 01/09/23 splenic infarct Requesting physician: Clemente Gongora - Chief Complaint abdominal pain - History of Present Illness Patient is a 62-year-old female with a significant history of COPD, CAD, and current every day smoker. Currently half pack per day, but previously 1-2 packs daily for last 40 years. Patient presented to the emergency room complaining of left-sided rib pain and left upper quadrant abdominal pain. She also reported she has mild shortness of breath and pain upon deep inspiration. Denies leg pain and swelling. Patient denies history of hyperlipidemia, diabetes and autoimmune disorders. No known history of blood disorders or previous blood clots. Upon adm ission CT abdomen and pelvis revealed extensive atherosclerotic disease involving the aorta and branch vessels. Splenic findings concerning for infarct. Hepatomegaly and hepatic steatosis. CTA abdomen and pelvis revealed severe atherosclerotic changes throughout the abdomen abdominal aorta. No e vidence of aneurysm or dissection. 50% stenosis of distal abdominal aorta. 40% stenosis of the common iliac arteries bilaterally and proximal external iliac arteries. Approximately 3.5 cm wedge-shaped area of decreased enhancement of the midportion of the spleen suggesting infarct. The celiac artery and splenic artery appear widely patent. No thrombus identified. D-dimer elevated at 0.95. CTA chest negative for PE. Coags WNL. Blood counts stable, WBC 14.6, hemoglobin 14.7, platelets 397,000. Review of Systems 10 point ROS is negative except as stated in the HPI Past Medical History Past Medical History: Chest Pain / Angina, COPD, GERD/Reflux Additional Past Medical History / Comment(s): Chronic bronchitis, sinus tachycardia, chronic back pain, migraines, [place] bilaterally, bilateral tinnitis. History of Any Multi-Drug Resistant Organisms: None Reported Past Surgical History: Appendectomy, Tubal Ligation Additional Past Surgical History / Comment(s): pt states heart cath back in 2004 with no stents Past Anesthesia/Blood Transfusion Reactions: No Reported Reaction Past Psychological History: Anxiety, Depression Additional Psychological History / Comment(s): Pt resides with her spouse. She is independent. She has a nebulizer. Smoking Status: Current every day smoker Past Alcohol Use History: None Reported Additional Past Alcohol Use History / Comment(s): started smoking 1977 was smoking 3 ppd now down to 1-2 ppd Past Drug Use History: None Reported - Past Family History Brother(s) Family Medical History: Coronary Artery Disease (CAD), Myocardial Infarction ([place]) Additional Family Medical History / Comment(s): Brother had [place] in his early 40s, pacemaker Sister(s) Family Medical History: Mitral Valve Prolapse (MVP) Father Additional Family Medical History / Comment(s): "post op mrsa infection- from complications of that" Mother Family Medical History: Cancer Additional Family Medical History / Comment(s): Lung cancer Medications and Allergies Home Medications Medication Instructions Recorded Confirmed Type Budesonide-Formot 160-4.5 Mcg 2 puff INHALATION RT-BID #1 unit 12/01/17 01/08/23 Rx [Symbicort 160-4.5 Mcg Inhaler] Ipratropium-Albuterol Nebulize 3 ml INHALATION RT-TID PRN 11/03/22 01/08/23 History [Duoneb 0.5 mg-3 mg/3 ml Soln] HYDROcodone/APAP 5-325MG [[place] 1 tab PO Q12H PRN 12/26/22 01/08/23 History 5-325] Ibuprofen [Motrin] 800 mg PO Q12H PRN 12/26/22 01/08/23 History amLODIPine [Norvasc] 5 mg PO BID 12/26/22 01/08/23 History lamoTRIgine [LaMICtal] 100 mg PO BID 12/26/22 01/08/23 History buPROPion SR [Wellbutrin SR] 150 mg PO BID 01/08/23 01/08/23 History Allergies Allergy/AdvReac Type Severity Reaction Status Date / Time metronidazole [From Flagyl] AdvReac NUMBNESS Verified 01/08/23 19:27 IN LEGS dust AdvReac Dyspnea Uncoded 01/08/23 19:27 Physical Exam Vitals: Vital Signs Temp Pulse Pulse Resp BP BP Pulse Ox 01/09/23 14:09 98.3 F 102 H 17 119/75 95 01/09/23 08:31 92 01/09/23 08:16 92 01/09/23 07:00 98.7 F 86 16 120/75 92 L 01/09/23 01:33 96 16 01/09/23 00:44 97.9 F 99 96 16 124/77 93 L 01/09/23 00:37 96 01/08/23 20:00 96 16 01/08/23 19:20 97.7 F 96 16 125/73 93 L 01/08/23 18:34 97.8 F 88 18 122/78 96 01/08/23 17:16 92 18 117/74 95 01/08/23 15:28 60 16 130/74 96 Intake and Output 01/09/23 01/09/23 01/09/23 06:59 14:59 22:59 Intake Total 590 Balance 590 Intake: Oral 590 Other: Voiding Method Toilet # Voids 1 - Constitutional General appearance: average body habitus, no acute distress - EENT Eyes: anicteric sclerae, EOMI ENT: hearing grossly normal - Respiratory Respiratory: bilateral: CTA - Cardiovascular Rhythm: regular Heart sounds: normal: S1, S2 - Gastrointestinal General gastrointestinal: soft Localized gastrointestinal: tender: LUQ (mild LUQ tenderness, no guarding or rebound tenderness noted ) - Integumentary Integumentary: no cyanotic - Neurologic grossly intact - Musculoskeletal Musculoskeletal: strength equal bilaterally - Psychiatric Psychiatric: A&O x's 3 Results CBC & Chem 7: 01/09/23 10:03 01/08/23 17:29 Labs: Abnormal Lab Results - Last 24 Hours (Table) 01/08/23 01/08/23 01/08/23 Range/Units 15:23 17:29 17:29 WBC 13.5 H (3.8-10.6) k/uL MCV (80.0-100.0) fL Neutrophils # 10.7 H (1.3-7.7) k/uL D-Dimer 0.95 H (<0.60) mg/L FEU Sodium 129 L (137-145) mmol/L BUN 5 L (7-17) mg/dL Creatinine 0.35 L (0.52-1.04) mg/dL 01/09/23 Range/Units 10:03 WBC 14.4 H (3.8-10.6) k/uL MCV 102.6 H (80.0-100.0) fL Neutrophils # 12.1 H (1.3-7.7) k/uL D-Dimer (<0.60) mg/L FEU Sodium (137-145) mmol/L BUN (7-17) mg/dL Creatinine (0.52-1.04) mg/dL CT scan - abdomen: report reviewed CT scan - chest: report reviewed CT scan - pelvis: report reviewed Assessment and Plan (1) LUQ abdominal pain Current Visit: Yes Status: Acute Priority: High Code(s): R10.12 - LEFT UPPER QUADRANT PAIN SNOMED Code(s): 587948663 (2) Splenic infarction Current Visit: Yes Status: Acute Priority: High Code(s): D73.5 - INFARCTION OF SPLEEN SNOMED Code(s): 37683769 Plan: Splenic infarct: -Presented with LUQ pain x 3 days. Significant hx of long time nicotine dependence, COPD and CAD. No known history of blood clotting disorders or previous blood clots -CTA abdomen and pelvis revealed severe atherosclerotic changes throughout the abdomen abdominal aorta. No evidence of aneurysm or dissection. 50% stenosis of distal abdominal aorta. 40% stenosis of the common iliac arteries bilaterally and proximal external iliac arteries. Approximately 3.5 cm wedge- shaped area of decreased enhancement of the midportion of the spleen suggesting infarct. The celiac artery and splenic artery appear widely patent. No thrombus identified. -D-dimer elevated at 0.95. CTA chest negative for PE. Coags WNL -Splenic infarct likely secondary to severe CAD. No further workup warranted at this time for hypercoaguable state/blood clotting disorders. Patient educated on aggressive lifestyle management, regarding smoking cessation, and close management of BP and cholesterol. -Will start patient on baby aspirin daily Attests: I have seen and examined pt, performed H&P, developed impression and plan of care. Discussed with dictator. Agree with documentation, dictated as a scribe.
[2023-01-09] MEDS: HEPARIN SODIUM 1,000 UN/ML (10ML VL) IV PRN (20:48)
[2023-01-10 02:37] LABS: Procalcitonin 0.03 ng/mL (0.02-0.09)
[2023-01-10 03:13] LABS: Basophils % (A) 0 %; Eosinophils # (A) 0.2 k/uL (0-0.7); Eosinophils % (A) 2 %; HGB 12.8 gm/dL (11.4-16.0); Lymphocytes # (A) 1.6 k/uL (1.0-4.8); Lymphocytes % (A) 13 %; MCH 33.2 pg (25.0-35.0); MCHC 32.8 g/dL (31.0-37.0); MCV 101.3 fL (80.0-100.0); Mean Platelet Volume 7.9; Monocytes # (A) 0.6 k/uL (0-1.0); Monocytes % (A) 5 %; Neutrophils % (A) 79 %; Platelet Count 392 k/uL (150-450); RBC 3.85 m/uL (3.80-5.40); RDW 12.7 % (11.5-15.5); WBC 12.7 k/uL (3.8-10.6)
[2023-01-10 05:15] LABS: EBV-EA (IgG) 0.2 AI; EBV-EBNA(IgG) 4.7; EBV-VCA (IgG) 4.2 AI; EBV-VCA (IgM) <0.2 AI
[2023-01-10 05:19] LABS: Anti-DNA, DS unit <1.0 IU/mL; DNA Double-Stranded Negative (Negative)
[2023-01-10] MEDS: HYDROmorphone 0.5 MG/0.5 ML SYRINGE IVP PRN ×5 (05:29→22:01)
[2023-01-10] MEDS: IPRATROPIUM-ALBUTEROL 3 ML NEB INHALATION PRN ×2 (09:15→20:06)
[2023-01-10] MEDS: SYMBICORT 160-4.5 MCG INHALER INHALATION SCH ×2 (09:15→20:06)
[2023-01-10] MEDS ORDERED: BENZOCAINE SPRAY 1 CAN TOPICAL PRN (10:50)
[2023-01-10] MEDS ORDERED: MIDAZOLAM 2 MG/2 ML VIAL IV PRN (10:50)
[2023-01-10] MEDS ORDERED: fentaNYL (PF) 50 MCG/ML 2 ML AMP IVP PRN (10:50)
--- NOTE | 2023-01-10 10:57 | CA ---
Transthoracic Echo Report Name: Marisel Cummins Age: 62 Gender: F : 1960 Exam Date: 01/10/2023 08:22 Exam Location: [facility] Ht (in): 67 Wt (lb): 120 Ordering Physician: Clemente Gongora MD Attending/Referring Phys: Mid Wife Jaylene Alvarez RDCS Procedure CPT: Indications: bubble study/embolic Cardiac Hx: Technical Quality: Fair Contrast 1: Agitated Saline Total Dose (mL): 09 Contrast 2: Total Dose (mL): MEASUREMENTS (Male / Female) Normal Values 2D ECHO LV Diastolic Diameter PLAX 4.5 cm 4.2 - 5.9 / 3.9 - 5.3 cm LV Systolic Diameter PLAX 2.8 cm IVS Diastolic Thickness 1.0 cm 0.6 - 1.0 / 0.6 - 0.9 cm LVPW Diastolic Thickness 0.8 cm 0.6 - 1.0 / 0.6 - 0.9 cm LV Relative Wall Thickness 0.4 FINDINGS Left Ventricle Left ventricular cavity size normal. Left ventricular wall thickness normal. Left ventricular ejection fraction is estimated at 55 %. Right Ventricle Right Atrium Negative agitated saline bubble study for right to left shunt. No right atrial thrombus or mass seen. Left Atrium No left atrial thrombus or mass present. Mitral Valve Aortic Valve Tricuspid Valve Pulmonic Valve Pericardium No pericardial effusion. Aorta CONCLUSIONS Normal LV function No evidence of shunting across intra-atrial septum Consider transesophageal echo to definitively rule out cardiac source for thromboembolic phenomenon Previewed by: Dr. Emanuel Mayo MD (Electronically Signed) Final Date: 10 January 2023 10:56
--- NOTE | 2023-01-10 11:19 | P.CRDCN ---
History of Present Illness Consult date: 01/10/23 Reason for Consult (text): Splenic infarct History of present illness: History of present illness: This is a 62-year-old female patient with past medical history of hypertension, COPD, active tobacco use and dependence, family history of premature coronary artery disease. We have been asked to evaluate the patient for splenic infarct. Patient presented to the hospital due to left-sided rib pain and upper quadrant abdominal pain. Vascular surgery and oncology is following. Patient has been started on heparin drip. A limited echocardiogram has been obtained. EKG sinus rhythm with occasional PAC Chest x-ray: CT of the abdomen and pelvis with contrast 01/08 revealed extensive atherosclerotic disease involving the aorta and branch vessels. Splenic findings concerning for infarct. Hepatomegaly and hepatic steatosis. Moderate to large amount of colonic stool. No bowel obstruction. CTA abdomen and pelvis with contrast 01/08: Severe atherosclerotic changes throughout the abdominal aorta which is nondilated. No aneurysm or dissection. 50% stenosis of the distal abdominal aorta. 40% stenosis of the common iliac arteries bilaterally and proximal external iliac arteries. 3.5 cm wedge-shaped area of decreased enhancement in the midportion of the spleen suggesting infarct. Thus iliac artery and splenic artery appear widely patent. No thrombus is identified. CTA of the chest revealed no pulmonary embolism. Mild to moderate emphysematous changes. Thoracic aorta is mildly calcified not nondilated. No aneurysm or dissection. WBC 12.7, hemoglobin 12.8, platelet count 392. INR 0.9. Sodium 129, potassium 3.9, BUN 5 and creatinine 0.35. C-reactive protein 1.5. Pro-calcitonin 0.03. Influenza A, influenza B, RSV, Covid 19 not detected. Home cardiac medications: Amlodipine 5 mg twice daily. Review Of Systems: At the time of my evaluation: Constitutional: No fever, no chills. No weakness, fatigue or lethargy. EENT: No headache. No dizziness. Lungs: No shortness of breath, cough, no sputum production. No wheezing. Cardiovascular: No chest pain, no lower extremity edema. No palpitations. No paroxysmal nocturnal dyspnea. No orthopnea. No lightheadedness or dizziness. No syncopal episodes. Abdominal: No abdominal pain. No nausea, vomiting. Musculoskeletal: No myalgias. No muscle weakness, no frequent falls. Integumentary: No wounds. No rash. No unusual bruising. Neurologic: No aphasia. No facial droop. No change in mentation. Physical examination: Gen: This is a 62-year-old thin female resting in bed and appears to be in no acute distress. VS: reviewed HEENT: Head is atraumatic, normocephalic. Pupils equal, round. Sclerae is anicteric. NECK: Supple. No JVD. . LUNGS: Clear to auscultation. No wheezes or rhonchi. No intercostal retractions. HEART: Regular rate and rhythm. No murmur. ABDOMEN: Soft mild left upper quadrant tenderness. EXTREMITIES: No pedal edema. No calf tenderness. NEUROLOGICAL: Patient is awake, alert and oriented x3. Assessment: Splenic infarct COPD Tobacco use and dependence Hypertension Plan: We will review 2-D echocardiogram Schedule patient for ASHWIN Further recommendations to follow based upon clinical course Thank you kindly for this consultation. Nurse practitioner note has been reviewed, I agree with documented findings and plan of care. Patient was seen and examined. Past Medical History Past Medical History: Chest Pain / Angina, COPD, GERD/Reflux Additional Past Medical History / Comment(s): Chronic bronchitis, sinus tachycardia, chronic back pain, migraines, KAKE bilaterally, bilateral tinnitis. History of Any Multi-Drug Resistant Organisms: None Reported Past Surgical History: Appendectomy, Tubal Ligation Additional Past Surgical History / Comment(s): pt states heart cath back in 2004 with no stents Past Anesthesia/Blood Transfusion Reactions: No Reported Reaction Past Psychological History: Anxiety, Depression Additional Psychological History / Comment(s): Pt resides with her spouse. She is independent. She has a nebulizer. Smoking Status: Current every day smoker Past Alcohol Use History: None Reported Additional Past Alcohol Use History / Comment(s): started smoking 1976 was smoking 3 ppd now down to 1-2 ppd Past Drug Use History: None Reported - Past Family History Brother(s) Family Medical History: Coronary Artery Disease (CAD), Myocardial Infarction ([place]) Additional Family Medical History / Comment(s): Brother had [place] in his early 40s, pacemaker Sister(s) Family Medical History: Mitral Valve Prolapse (MVP) Father Additional Family Medical History / Comment(s): "post op mrsa infection- from complications of that" Mother Family Medical History: Cancer Additional Family Medical History / Comment(s): Lung cancer Medications and Allergies Home Medications Medication Instructions Recorded Confirmed Type Budesonide-Formot 160-4.5 Mcg 2 puff INHALATION RT-BID #1 unit 12/01/17 01/08/23 Rx [Symbicort 160-4.5 Mcg Inhaler] Ipratropium-Albuterol Nebulize 3 ml INHALATION RT-TID PRN 11/03/22 01/08/23 History [Duoneb 0.5 mg-3 mg/3 ml Soln] HYDROcodone/APAP 5-325MG [[place] 1 tab PO Q12H PRN 12/26/22 01/08/23 History 5-325] Ibuprofen [Motrin] 800 mg PO Q12H PRN 12/26/22 01/08/23 History amLODIPine [Norvasc] 5 mg PO BID 12/26/22 01/08/23 History lamoTRIgine [LaMICtal] 100 mg PO BID 12/26/22 01/08/23 History buPROPion SR [Wellbutrin SR] 150 mg PO BID 01/08/23 01/08/23 History Allergies Allergy/AdvReac Type Severity Reaction Status Date / Time metronidazole [From Flagyl] AdvReac NUMBNESS Verified 01/08/23 19:27 IN LEGS dust AdvReac Dyspnea Uncoded 01/08/23 19:27 Physical Exam Vitals: Vital Signs Temp Pulse Pulse Resp BP Pulse Ox 01/10/23 09:30 96 01/10/23 09:15 96 01/10/23 07:00 98.1 F 75 20 112/72 93 L 01/10/23 01:28 98.0 F 94 16 114/71 94 L 01/09/23 20:43 104 H 01/09/23 19:49 98.1 F 104 H 16 112/73 96 01/09/23 19:48 100 01/09/23 19:39 100 01/09/23 16:21 100 01/09/23 16:08 96 01/09/23 14:09 98.3 F 102 H 17 119/75 95 Intake and Output 01/09/23 01/10/23 01/10/23 22:59 06:59 14:59 Intake Total 93.571 Balance 93.571 Intake: Intake, IV Titration 93.571 Amount Heparin Sod,Pork in 0.45% 93.571 NaCl 25,000 unit In 0.45 % NaCl 1 250ml.bag @ 18 UNITS/KG/HR 9.798 mls/hr IV .Q24H [facility] Rx#: [id number] Other: Voiding Method Toilet # Voids 1 1 Results 01/10/23 02:50 01/08/23 17:29 Coagulation 01/09/23 01/09/23 01/10/23 Range/Units 10:03 18:13 02:50 PT 10.0 (10.0-12.5) sec APTT 24.0 42.5 H 51.0 H (22.0-30.0) sec CBC 01/09/23 01/10/23 Range/Units 10:03 02:50 WBC 14.4 H 12.7 H (3.8-10.6) k/uL RBC 4.10 3.85 (3.80-5.40) m/uL Hgb 13.7 12.8 (11.4-16.0) gm/dL Hct 42.1 39.0 (34.0-46.0) % Plt Count 400 392 (150-450) k/uL Current Medications Generic Name Dose Route Start Last Admin Trade Name Freq PRN Reason Stop Dose Admin Albuterol/Ipratropium 3 ml 01/08/23 21:13 01/10/23 09:15 Ipratropium-Albuterol 3 Ml Neb INHALATION 3 ml RT-TID PRN Administration Shortness Of Breath Amlodipine Besylate 5 mg 01/08/23 21:15 01/09/23 20:43 Amlodipine 5 Mg Tab PO 5 mg BID [facility] Administration Aspirin 81 mg 01/09/23 13:00 01/09/23 14:36 Aspirin 81 Mg PO Not Given DAILY [facility] Budesonide/Formoterol Fumarate 2 puff 01/09/23 08:00 01/10/23 09:15 Symbicort 160-4.5 Mcg Inhaler INHALATION 2 puff RT-BID [facility] Administration Bupropion HCl 150 mg 01/08/23 21:15 01/09/23 20:43 Bupropion Sr 150 Mg Tablet.Er PO 150 mg BID [facility] Administration Heparin Sodium (Porcine) 0 unit 01/09/23 09:24 01/09/23 20:48 Heparin Sodium 1,000 Un/Ml (10ml Vl) IV 2,177 unit PER PROTOCOL PRN Administration Low PTT Protocol Hydromorphone HCl 0.5 mg 01/08/23 17:06 01/10/23 09:49 Hydromorphone 0.5 Mg/0.5 Ml Syringe IVP 0.5 mg Q3HR PRN Administration Moderate Pain (Scale 4 to 6) Sodium Chloride 1,000 mls @ 75 mls/hr 01/08/23 17:15 01/09/23 23:40 Saline 0.9% IV 75 mls/hr .[id number] [facility] Administration Heparin Sodium/Sodium Chloride 250 mls @ 9.798 mls/hr 01/09/23 10:00 01/09/23 20:49 25,000 unit/ Sodium Chloride IV 20 units/kg/hr .Q24H [facility] 10.886 mls/hr Titration Protocol 18 UNITS/KG/HR Lamotrigine 100 mg 01/08/23 21:15 01/09/23 20:43 Lamotrigine 100 Mg Tab PO 100 mg BID [facility] Administration Naloxone HCl 0.2 mg 01/08/23 17:06 Naloxone 0.4 Mg/Ml 1 Ml Vial IV Q2M PRN Opioid Reversal Intake and Output 01/09/23 01/10/23 01/10/23 22:59 06:59 14:59 Intake Total 93.571 Balance 93.571 Intake: Intake, IV Titration 93.571 Amount Heparin Sod,Pork in 0.45% 93.571 NaCl 25,000 unit In 0.45 % NaCl 1 250ml.bag @ 18 UNITS/KG/HR 9.798 mls/hr IV .Q24H [facility] Rx#: [id number] Other: Voiding Method Toilet # Voids 1 1 01/10/23 02:50 01/08/23 17:29
[2023-01-10] MEDS ORDERED: fentaNYL (PF) 50 MCG/ML 2 ML AMP ONE (11:35)
[2023-01-10] MEDS ORDERED: IV FLUID CONTINUATION 1,000 ML IV ONE (11:49)
[2023-01-10] MEDS: BENZOCAINE SPRAY 1 CAN MUCOUS MEM ONE ×2 (11:50→12:05)
[2023-01-10] MEDS ORDERED: MIDAZOLAM 2 MG/2 ML VIAL IVP ONE (12:05)
[2023-01-10] MEDS ORDERED: fentaNYL (PF) 50 MCG/1 ML VIAL IVP ONE ×2 (12:05)
[2023-01-10] MEDS: HEPARIN SOD,PORK IN 0.45% NACL 25,000 UNIT in 0.45% NACL 1 250ML.BAG IV SCH (12:26)
[2023-01-10] MEDS: SODIUM CHLORIDE 0.9% 1,000 ML IV SCH (12:26)
[2023-01-10] MEDS: amLODIPine 5 MG TAB PO SCH ×2 (12:32→20:24)
[2023-01-10] MEDS: buPROPion SR 150 MG TABLET.ER PO SCH ×2 (12:32→20:24)
[2023-01-10] MEDS: ASPIRIN 81 MG PO SCH (12:32)
[2023-01-10] MEDS: lamoTRIgine 100 MG TAB PO SCH ×2 (12:32→20:24)
--- NOTE | 2023-01-10 12:40 | ECHOS ---
STRESS ECHOCARDIOGRAM INDICATIONS: Splenic infarct, rule out cardiac source of thromboembolic phenomenon. PROCEDURE NOTE: After obtaining informed consent, transesophageal echocardiogram was performed in left lateral position using an Omniplane probe. Local and IV sedation were obtained using Xylocaine spray, 2 mg of Versed and 25 mcg of fentanyl. The patient tolerated the procedure well without any obvious immediate complications. Total sedation time was 10 minutes. FINDINGS: 1. There is no intracardiac thrombus within the left atrial appendage, left atrium, right atrium, right ventricle or left ventricle. 2. Left ventricle has normal size and systolic function. 3. Mitral valve appears anatomically normal. There is trace mitral regurgitation noted. Aortic valve is a 3-leaflet valve. There is no evidence of aortic stenosis or regurgitation. 4. There is trace tricuspid regurgitation. 5. Aortic root is mildly dilated. There is no evidence of [id number] shunt by color-flow Doppler or [id number]-[id number] shunt by agitated saline contrast study. 6. Lipomatous hypertrophy of the interatrial septum noted. CONCLUSIONS: 1. No intracardiac thrombus. 2. No evidence of shunting across the interatrial septum. 3. Normal LV function. MMODL / IJN: [id number] /
[2023-01-10 14:40] VITALS: BMI 18.8
[2023-01-10] MEDS: HEPARIN SODIUM 1,000 UN/ML (10ML VL) IV PRN (21:05)
[2023-01-11] MEDS: SODIUM CHLORIDE 0.9% 1,000 ML IV SCH (02:14)
[2023-01-11 02:55] VITALS: RESP 16
[2023-01-11] MEDS: HYDROmorphone 0.5 MG/0.5 ML SYRINGE IVP PRN ×2 (04:55→12:49)
--- NOTE | 2023-01-11 06:25 | P.PN ---
Subjective Progress Note Date: 01/10/23 Principal diagnosis: splenic infarct patient was seen and examined today as a follow-up. No acute changes through the night. Currently pending cardiology consult. Patient underwent echocardiogram today. Results pending. Still complains of some left side pain mostly with movement or taking deep breaths. She remains on IV heparin drip. Objective - Vital Signs Vital signs: Vital Signs Temp 98.1 F 01/10/23 07:00 Pulse 75 01/10/23 07:00 Resp 20 01/10/23 07:00 BP 112/72 01/10/23 07:00 Pulse Ox 93 L 01/10/23 07:00 FiO2 Intake & Output 01/09/23 01/10/23 01/10/23 18:59 06:59 18:59 Intake Total 590 93.571 Balance 590 93.571 Intake: Intake, IV Titration 93.571 Amount Heparin Sod,Pork in 0.45% 93.571 NaCl 25,000 unit In 0.45 % NaCl 1 250ml.bag @ 18 UNITS/KG/HR 9.798 mls/hr IV .Q24H [facility] Rx#: [id number] Oral 590 Other: Voiding Method Toilet # Voids 3 1 - Exam General appearance: The patient is alert, oriented, appears in no acute distress. HET: Head is normocephalic and atraumatic. Pupils are equal and reactive. Neck: Supple. Heart: Regular. Lungs: Equal expansion, normal respiratory effort. Abdomen: Soft, left upper quadrant tenderness, nondistended. Extremities: Normal skin color and turgor. Neurological: No focal deficits. Strength and sensation are grossly intact. - Labs CBC & Chem 7: 01/10/23 02:50 01/08/23 17:29 Labs: Abnormal Lab Results - Last 24 Hours (Table) 01/09/23 01/09/23 01/09/23 Range/Units 10:03 18:13 19:24 WBC 14.4 H (3.8-10.6) k/uL MCV 102.6 H (80.0-100.0) fL Neutrophils # 12.1 H (1.3-7.7) k/uL APTT 42.5 H (22.0-30.0) sec C-Reactive Protein (<1.0) mg/dL CMV IgG Ab Reactive A (Non-Reactive) EBV Capsid Ag IgG Intrp (Negative) EBV Nuc Ag IgG Interp (Negative) 01/09/23 01/09/23 01/10/23 Range/Units 19:24 19:24 02:50 WBC 12.7 H (3.8-10.6) k/uL MCV 101.3 H (80.0-100.0) fL Neutrophils # 10.0 H (1.3-7.7) k/uL APTT (22.0-30.0) sec C-Reactive Protein 11.5 H (<1.0) mg/dL CMV IgG Ab (Non-Reactive) EBV Capsid Ag IgG Intrp Positive A (Negative) EBV Nuc Ag IgG Interp Positive A (Negative) 01/10/23 Range/Units 02:50 WBC (3.8-10.6) k/uL MCV (80.0-100.0) fL Neutrophils # (1.3-7.7) k/uL APTT 51.0 H (22.0-30.0) sec C-Reactive Protein (<1.0) mg/dL CMV IgG Ab (Non-Reactive) EBV Capsid Ag IgG Intrp (Negative) EBV Nuc Ag IgG Interp (Negative) Assessment and Plan Assessment: 1. Splenic infarct 2. Abdominal pain 3. COPD 4. History of coronary artery disease 5. Daily smoker half-pack per day, 40 years Plan: 1. Echocardiogram ordered 2. transition to oral anticoagulation of your choice once cleared by cardiology 3. Recommend smoking cessation 4. no further workup indicated from hematology 5. Consult cardiology, evaluate for possible source for splenic infarct. Await recommendations 6. No indication for any vascular surgical intervention. Thank you for this consultation, we'll continue to follow. The impression and plan of care has been dictated as directed. I performed a history and examination of this patient, discussed the same with the dictator. I agree with the dictator's note ,documented as a scribe. Any additional findings or plans will be noted.
[2023-01-11] MEDS ORDERED: ceFAZolin 1 GM in SODIUM CHLORIDE 0.9% IRRIG BTL 250 ML IRRIGATION PRN (07:00)
[2023-01-11 08:05] VITALS: BP 115/75; PULSE 82; TEMP 98.4
[2023-01-11] MEDS ORDERED: SODIUM CHLORIDE 0.9% 1,000 ML IV SCH ×2 (08:15)
--- NOTE | 2023-01-11 08:27 | P.CONS ---
History of Present Illness - Reason for Consult Consult date: 01/10/23 splenic infarct question of infection etiology Requesting physician: Clemente Gongora - Chief Complaint Right upper quadrant abdominal pain x few days - History of Present Illness Patient is a 62-year-old female with a past medical history significant for COPD reflux current everyday smoker presenting to the hospital 2 days ago for evaluation of left lower quadrant abdominal pain that apparently been going on for about 3 days before presentation to the hospital. Denies any history of any trauma or describing the pain to be mostly sharp moderate intensity without any radiation denies any nausea vomiting no diarrhea no fever no chills, patient on presentation to the hospital was afebrile and no fever has been recorded subsequently patient was not tachycardic hypotensive or hypoxic and no need for supplemental oxygen patient did have white count of 14.6 with a whiten of 14.4 today with a left shift creatinine was normal liver exams are normal urine has been negative patient did have positive IgG antibodies to CMV and EBV influenza RSV and COVID testing was negative patient did have a CT of abdominal pelvis extensive atherosclerotic disease involving the aorta splenic findings concerning for infarct moderate to large amount of colonic stools correlate for constipation patient did have abdominal pelvis CTA severe atherosclerotic changes throughout the abdominal aorta 50% stenosis of the distal abdominal aorta concerning for splenic infarct no thrombus or obstruction of the splenic artery CT angiogram of the chest no PE mild to moderate emphysem atous changes no acute infiltrate infectious disease was consulted with concern for possible infectious etiology for her splenic infarct and need for antibiotic therapy Review of Systems Positive point and negatives has been mentioned in the HPI, complete review of systems was performed and all other systems are negative Past Medical History Past Medical History: Chest Pain / Angina, COPD, GERD/Reflux Additional Past Medical History / Comment(s): Chronic bronchitis, sinus tachycardia, chronic back pain, migraines, VENETIE bilaterally, bilateral tinnitis. History of Any Multi-Drug Resistant Organisms: None Reported Past Surgical History: Appendectomy, Tubal Ligation Additional Past Surgical History / Comment(s): pt states heart cath back in 2004 with no stents Past Anesthesia/Blood Transfusion Reactions: No Reported Reaction Past Psychological History: Anxiety, Depression Additional Psychological History / Comment(s): Pt resides with her spouse. She is independent. She has a nebulizer. Smoking Status: Current every day smoker Past Alcohol Use History: None Reported Additional Past Alcohol Use History / Comment(s): started smoking 1976 was smoking 3 ppd now down to 1-2 ppd Past Drug Use History: None Reported - Past Family History Brother(s) Family Medical History: Coronary Artery Disease (CAD), Myocardial Infarction ([place]) Additional Family Medical History / Comment(s): Brother had [place] in his early 40s, pacemaker Sister(s) Family Medical History: Mitral Valve Prolapse (MVP) Father Additional Family Medical History / Comment(s): "post op mrsa infection- from complications of that" Mother Family Medical History: Cancer Additional Family Medical History / Comment(s): Lung cancer Medications and Allergies Home Medications Medication Instructions Recorded Confirmed Type Budesonide-Formot 160-4.5 Mcg 2 puff INHALATION RT-BID #1 unit 12/01/17 01/08/23 Rx [Symbicort 160-4.5 Mcg Inhaler] Ipratropium-Albuterol Nebulize 3 ml INHALATION RT-TID PRN 11/03/22 01/08/23 History [Duoneb 0.5 mg-3 mg/3 ml Soln] HYDROcodone/APAP 5-325MG [[place] 1 tab PO Q12H PRN 12/26/22 01/08/23 History 5-325] amLODIPine [Norvasc] 5 mg PO BID 12/26/22 01/08/23 History lamoTRIgine [LaMICtal] 100 mg PO BID 12/26/22 01/08/23 History buPROPion SR [Wellbutrin SR] 150 mg PO BID 01/08/23 01/08/23 History Aspirin 81 mg PO DAILY 90 Days #90 tab 01/11/23 Rx Benzocaine [place] [Hurricaine [place]] 1 spray TOPICAL TID PRN each 01/11/23 Rx Allergies Allergy/AdvReac Type Severity Reaction Status Date / Time metronidazole [From Flagyl] AdvReac NUMBNESS Verified 01/08/23 19:27 IN LEGS dust AdvReac Dyspnea Uncoded 01/08/23 19:27 Physical Exam Vitals: Vital Signs Temp Pulse Pulse Resp BP Pulse Ox 01/10/23 09:30 96 01/10/23 09:15 96 01/10/23 07:00 98.1 F 75 20 112/72 93 L 01/10/23 01:28 98.0 F 94 16 114/71 94 L 01/09/23 20:43 104 H 01/09/23 19:49 98.1 F 104 H 16 112/73 96 01/09/23 19:48 100 01/09/23 19:39 100 01/09/23 16:21 100 01/09/23 16:08 96 01/09/23 14:09 98.3 F 102 H 17 119/75 95 Intake and Output 01/09/23 01/10/23 01/10/23 22:59 06:59 14:59 Intake Total 93.571 206.429 Balance 93.571 206.429 Intake: IV 50 Intake, IV Titration 93.571 156.429 Amount Heparin Sod,Pork in 0.45% 93.571 156.429 NaCl 25,000 unit In 0.45 % NaCl 1 250ml.bag @ 18 UNITS/KG/HR 9.798 mls/hr IV .Q24H [facility] Rx#: [id number] Other: Voiding Method Toilet # Voids 1 1 GENERAL DESCRIPTION: Middle-aged female lying in bed, no distress. No tachypnea or accessory muscle of respiration use. HEENT: Shows Pallor , no scleral icterus. Oral mucous membrane is dry. No pharyngeal erythema or thrush NECK: Trachea central, no thyromegaly. LUNGS: Unlabored breathing. Clear to auscultation anteriorly. No wheeze or crackle. HEART: S1, S2, regular rate and rhythm. No loud murmur ABDOMEN: Soft, no tenderness EXTREMITIES: No edema of feet. SKIN: No rash, no masses palpable. NEUROLOGICAL: The patient is awake, alert, oriented x3, mood and affect normal. Results CBC & Chem 7: 01/10/23 02:50 01/08/23 17:29 Labs: Abnormal Lab Results - Last 24 Hours (Table) 01/09/23 01/09/23 01/09/23 Range/Units 18:13 19:24 19:24 WBC (3.8-10.6) k/uL MCV (80.0-100.0) fL Neutrophils # (1.3-7.7) k/uL APTT 42.5 H (22.0-30.0) sec C-Reactive Protein (<1.0) mg/dL CMV IgG Ab Reactive A (Non-Reactive) EBV Capsid Ag IgG Intrp Positive A (Negative) EBV Nuc Ag IgG Interp Positive A (Negative) 01/09/23 01/10/23 01/10/23 Range/Units 19:24 02:50 02:50 WBC 12.7 H (3.8-10.6) k/uL MCV 101.3 H (80.0-100.0) fL Neutrophils # 10.0 H (1.3-7.7) k/uL APTT 51.0 H (22.0-30.0) sec C-Reactive Protein 11.5 H (<1.0) mg/dL CMV IgG Ab (Non-Reactive) EBV Capsid Ag IgG Intrp (Negative) EBV Nuc Ag IgG Interp (Negative) Assessment and Plan (1) Leukocytosis Status: Acute Code(s): D72.829 - ELEVATED WHITE BLOOD CELL COUNT, UNSPECIFIED SNOMED Code(s): 174318319 (2) Splenic infarction Status: Acute Priority: High Code(s): D73.5 - INFARCTION OF SPLEEN SNOMED Code(s): 54746803 Plan: 1patient presented to hospital left upper quadrant abdominal pain patient has b een diagnosed with a splenic infarct more likely related to underlying atherosclerotic disease as the patient did have significant history of smoking and significant atherosclerosis was noticed on the CT of abdominal pelvis clinically doubt infectious etiology patient not running any fever does not look toxic 2-patient did have an elevated white count more likely related to underlying splenic infarct 3-we will obtain blood cultures and check inflammatory markers to complete the work-up We will follow on clinical condition and cultures to further adjust medication if needed Thank you for this consultation we will follow the patient along with you Dictation was produced using [employer] dictation software. please excuse any grammatical, word or spelling errors. Time with Patient: Greater than 30
[2023-01-11] MEDS: SYMBICORT 160-4.5 MCG INHALER INHALATION SCH (08:37)
[2023-01-11] MEDS ORDERED: IV FLUID CONTINUATION 1,000 ML IV ONE (08:45)
[2023-01-11] MEDS ORDERED: MIDAZOLAM 2 MG/2 ML VIAL IVP ONE (08:52)
[2023-01-11] MEDS ORDERED: LIDOCAINE 1% INJ 10MG/ML (20 ML MDV) SQ ONE (08:58)
[2023-01-11] MEDS: ASPIRIN 81 MG PO SCH (09:17)
[2023-01-11] MEDS: lamoTRIgine 100 MG TAB PO SCH (09:17)
[2023-01-11] MEDS: amLODIPine 5 MG TAB PO SCH (09:17)
[2023-01-11] MEDS: buPROPion SR 150 MG TABLET.ER PO SCH (09:18)
--- NOTE | 2023-01-11 09:50 | CA ---
CARDIOLOGY REPORT Loop Recorder Implantation PROCEDURE: Loop recorder implantation in the left fourth intercostal space. PERFORMED BY: Dr. Marcia Lipscomb. ANESTHESIA: Moderate conscious sedation time was 14 minutes. CLINICAL INFORMATION: Ms. Cummins is a 62-year-old lady with history of hypertension, hyperlipidemia, smoking and COPD; who came into the hospital with what seems to be a splenic infarct. There was concern that she has arterial embolization. She had a ASHWIN that was negative for thrombus or shunt. She was then advised a loop recorder to rule out any occult atrial fibrillation causing arterial embolization. Risks, benefits, options were explained to the patient. She understood all details and wished to proceed with the procedure. PROCEDURE NOTE: Under strict aseptic precautions and local anesthesia with the antibiotic infusing intravenously, a single stab incision was made with the provided tool in the left fourth intercostal space. Using the plunger and device, the loop recorder was implanted into the left fourth intercostal space in a lateral direction. The recordings were good. The signal was 0.24 mV. The device was set for atrial fibrillation protocol. The patient tolerated the procedure well without complication. 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 The device was set for atrial fibrillation protocol. The patient tolerated the procedure well. Details were discussed with her. No family was available. MMODL / IJN: [id number] /
--- NOTE | 2023-01-11 11:20 | PN ---
PROGRESS NOTE SUBJECTIVE: She is a 62-year-old white female, came in with acute hepatic infarction. She is on heparin drip. Waiting for multiple tests to be done. Apparently, she had an echo with a bubble study that was negative. She had multiple viral workup. Infectious Disease consult is pending. She remains on heparin. Her pain is about 50% better. OBJECTIVE: CARDIOVASCULAR: S1 and S2. LUNGS: Clear. GI: There is mild tenderness, much better than yesterday. HEMATOLOGY: Negative Homans. ASSESSMENT: 1. Acute splenic infarction. 2. Chronic obstructive pulmonary disease. 3. Coronary artery disease. 4. Hypertension. 5. Seizures. 6. Mood disorder. Prognosis is guarded, possibly waiting multiple consultations, see above. Blood thinners to go home on per Cardiology. We will have to see what they say. Control other risk factors. Wait for viral loads and defer test to be done. Prognosis guarded. MMODL / IJN: [id number] /
[2023-01-11] MEDS: HEPARIN SOD,PORK IN 0.45% NACL 25,000 UNIT in 0.45% NACL 1 250ML.BAG IV SCH (11:25)
[2023-01-11 11:33] LABS: Protein S Antigen 103 % (50 - 140)
[2023-01-11 11:45] LABS: Protein C (Activity) 109 % (71-138)
--- NOTE | 2023-01-11 12:20 | P.PN ---
Subjective Progress Note Date: 01/11/23 Principal diagnosis: splenic infarct Patient seen and examined as follow up. Cardiology woorked up atient with ASHWIN,echocardiogram and had LOOP recorder placed today. Cardiology does not believe cardiac source. Splenic and celiac artery patent. Pain improved. Objective - Vital Signs Vital signs: Vital Signs Temp 98.4 F 01/11/23 07:00 Pulse 82 01/11/23 07:00 Resp 16 01/11/23 07:00 BP 115/75 01/11/23 07:00 Pulse Ox 90 L 01/11/23 07:00 FiO2 Intake & Output 01/10/23 01/11/23 01/11/23 18:59 06:59 18:59 Intake Total 824.429 94.164 373.836 Output Total 150 Balance 824.429 -55.836 373.836 Weight 54.431 kg Intake: IV 50 100 Intake, IV Titration 156.429 94.164 155.836 Amount Heparin Sod,Pork in 0.45% 156.429 94.164 155.836 NaCl 25,000 unit In 0.45 % NaCl 1 250ml.bag @ 18 UNITS/KG/HR 9.798 mls/hr IV .Q24H [facility] Rx#: [id number] Oral 618 118 Output: Urine 150 Other: Voiding Method Toilet # Voids 1 2 - Exam General appearance: The patient is alert, oriented, appears in no acute distress. HET: Head is normocephalic and atraumatic. Pupils are equal and reactive. Neck: Supple. Heart: Regular. Lungs: Equal expansion, normal respiratory effort. Abdomen: Soft, left upper quadrant tenderness improved, nondistended. Extremities: Normal skin color and turgor. Neurological: No focal deficits. Strength and sensation are grossly intact. - Labs CBC & Chem 7: 01/10/23 02:50 01/08/23 17:29 Labs: Abnormal Lab Results - Last 24 Hours (Table) 01/10/23 01/11/23 Range/Units 18:58 05:33 APTT 42.4 H 63.9 H (22.0-30.0) sec Assessment and Plan Assessment: 1. Splenic infarct 2. Abdominal pain 3. COPD 4. History of coronary artery disease 5. Daily smoker half-pack per day, 40 years Plan: 1. Echocardiogram completed and reviewed 2. Cardiology work up completed,non cardiac source. No need for anticoagulation. 3. Recommend smoking cessation 4. No further workup indicated from hematology 5. Consult cardiology 6. No indication for any vascular surgical intervention. Thank you for this consultation, patient cleared for discharge from vascular surgery.. The impression and plan of care has been dictated as directed. Dr. Cain I performed a history and examination of this patient, discussed the same with the dictator. I agree with the dictator's note ,documented as a scribe. Any additional findings or plans will be noted.
--- NOTE | 2023-01-11 12:52 | P.PN ---
Subjective Progress Note Date: 01/11/23 History of present illness: This is a 62-year-old female patient with past medical history of hypertension, COPD, active tobacco use and dependence, family history of premature coronary artery disease. We have been asked to evaluate the patient for splenic infarct. Patient presented to the hospital due to left-sided rib pain and upper quadrant abdominal pain. Vascular surgery and oncology is following. Patient has been started on heparin drip. A limited echocardiogram has been obtained. EKG sinus rhythm with occasional PAC Chest x-ray: CT of the abdomen and pelvis with contrast 01/08 revealed extensive atherosclerotic disease involving the aorta and branch vessels. Splenic findings concerning for infarct. Hepatomegaly and hepatic steatosis. Moderate to large amount of colonic stool. No bowel obstruction. CTA abdomen and pelvis with contrast 01/08: Severe atherosclerotic changes throughout the abdominal aorta which is nondilated. No aneurysm or dissection. 50% stenosis of the distal abdominal aorta. 40% stenosis of the common iliac arteries bilaterally and proximal external iliac arteries. 3.5 cm wedge-shaped area of decreased enhancement in the midportion of the spleen suggesting infarct. Thus iliac artery and splenic artery appear widely patent. No thrombus is identified. CTA of the chest revealed no pulmonary embolism. Mild to moderate emphysematous changes. Thoracic aorta is mildly calcified not nondilated. No aneurysm or dissection. WBC 12.7, hemoglobin 12.8, platelet count 392. INR 0.9. Sodium 129, potassium 3.9, BUN 5 and creatinine 0.35. C-reactive protein 1.5. Pro-calcitonin 0.03. Influenza A, influenza B, RSV, Covid 19 not detected. Home cardiac medications: Amlodipine 5 mg twice daily. 01/11 Patient is seen today in follow-up. Yesterday, patient underwent ASHWIN that revealed no intracardiac thrombus. No evidence of shunting across the inter- atrial septum. Normal LV function. Patient subsequently had a loop recorder placed this morning. Patient has been on IV heparin to be addressed by vascular surgery and oncology. At this time, not necessary from a cardiac perspective. Blood pressure 115/75, heart rate in the 80s and 90s, pulse ox 90 92% on room air, afebrile. 2-D echocardiogram reveals normal LV function. No evidence of shunting. Physical examination: Gen: This is a 62-year-old thin female resting in bed and appears to be in no acute distress. VS: reviewed HEENT: Head is atraumatic, normocephalic. Pupils equal, round. Sclerae is anicteric. LUNGS: Clear to auscultation. No wheezes or rhonchi. No intercostal retra ctions. HEART: Regular rate and rhythm. No murmur. EXTREMITIES: No pedal edema. No calf tenderness. NEUROLOGICAL: Patient is awake, alert and oriented x3. Assessment: Splenic infarct COPD Tobacco use and dependence Hypertension Plan: Event monitor has been placed in raising has been explained to the patient Patient is cleared for discharge Need for anticoagulation to be addressed by vascular and hematology. Follow-up in the office in 2-3 weeks. Nurse practitioner note has been reviewed, I agree with documented findings and plan of care. Patient was seen and examined. Objective - Vital Signs Vital signs: Vital Signs Temp 98.4 F 01/11/23 07:00 Pulse 82 01/11/23 07:00 Resp 16 01/11/23 07:00 BP 115/75 01/11/23 07:00 Pulse Ox 90 L 01/11/23 07:00 FiO2 Intake & Output 01/10/23 01/11/23 01/11/23 18:59 06:59 18:59 Intake Total 824.429 94.164 218 Output Total 150 Balance 824.429 -55.836 218 Weight 54.431 kg Intake: IV 50 100 Intake, IV Titration 156.429 94.164 Amount Heparin Sod,Pork in 0.45% 156.429 94.164 NaCl 25,000 unit In 0.45 % NaCl 1 250ml.bag @ 18 UNITS/KG/HR 9.798 mls/hr IV .Q24H [facility] Rx#: [id number] Oral 618 118 Output: Urine 150 Other: Voiding Method Toilet # Voids 1 2 - Labs CBC & Chem 7: 01/10/23 02:50 01/08/23 17:29 Labs: Abnormal Lab Results - Last 24 Hours (Table) 01/10/23 01/11/23 Range/Units 18:58 05:33 APTT 42.4 H 63.9 H (22.0-30.0) sec
--- NOTE | 2023-01-11 18:07 | P.PN ---
Subjective Progress Note Date: 01/11/23 Principal diagnosis: reason for follow-up is splenic infarct and leukocytosis Patient is a 62-year-old female with a past medical history significant for COPD reflux current everyday smoker presenting to the hospital for evaluation of left lower quadrant abdominal pain, patient did have a CT suggestive of splenic infarct with significant atherosclerotic disease infect ious disease was consulted concern for possible infectious etiology On today's evaluation that is 01/11/2023, the patient remains to be febrile, the patient is breathing comfortably on room air. The patient denies having any shortness of breath no chest pain did have occasional dry cough, patient left upper quadrant Abdominal pain has slightly decreased in intensity, no nausea/vomiting or diarrhea Patient did have a white count of 12.7 as of yesterday Objective - Vital Signs Vital signs: Vital Signs Temp 98.4 F 01/11/23 07:00 Pulse 82 01/11/23 07:00 Resp 16 01/11/23 07:00 BP 115/75 01/11/23 07:00 Pulse Ox 90 L 01/11/23 07:00 FiO2 Intake & Output 01/10/23 01/11/23 01/11/23 18:59 06:59 18:59 Intake Total 824.429 94.164 373.836 Output Total 150 Balance 824.429 -55.836 373.836 Weight 54.431 kg Intake: IV 50 100 Intake, IV Titration 156.429 94.164 155.836 Amount Heparin Sod,Pork in 0.45% 156.429 94.164 155.836 NaCl 25,000 unit In 0.45 % NaCl 1 250ml.bag @ 18 UNITS/KG/HR 9.798 mls/hr IV .Q24H [facility] Rx#: [id number] Oral 618 118 Output: Urine 150 Other: Voiding Method Toilet # Voids 1 2 - Exam GENERAL DESCRIPTION: middle-age female lying in bed in no distress RESPIRATORY SYSTEM: Unlabored breathing , clear to auscultation anteriorly HEART: S1 S2 regular rate and rhythm , ABDOMEN: Soft , no tenderness EXTREMITIES: No edema feet - Labs CBC & Chem 7: 01/10/23 02:50 01/08/23 17:29 Labs: Abnormal Lab Results - Last 24 Hours (Table) 01/10/23 01/11/23 Range/Units 18:58 05:33 APTT 42.4 H 63.9 H (22.0-30.0) sec Assessment and Plan (1) Leukocytosis Status: Acute Code(s): D72.829 - ELEVATED WHITE BLOOD CELL COUNT, UNSPECIFIED SNOMED Code(s): 891435704 (2) Splenic infarction Status: Acute Priority: High Code(s): D73.5 - INFARCTION OF SPLEEN SNOMED Code(s): 62313038 Plan: 1patient presented to hospital left upper quadrant abdominal pain patient has been diagnosed with a splenic infarct more likely related to underlying atherosclerotic disease as the patient did have significant history of smoking and significant atherosclerosis was noticed on the CT of abdominal pelvis clinically doubt infectious etiology patient not running any fever does not look toxic 2-patient did have an elevated white count more likely related to underlying splenic infarct 3- we are currently waiting for blood cultures to be finalized and inflammatory markers, no need for systemic antibiotic therapy at this point Dictation was produced using [employer] dictation software. please excuse any grammatical, word or spelling errors. Time with Patient: Less than 30
[2023-01-13 10:11] LABS: Protein C Antigen 104 % (72-160)
--- NOTE | 2023-01-13 12:19 | CDI ---
Documentation Clarification Form Date: 01/13/2023 12:05:04 PM From: Lynn Gibson RN, CCDS Email: [email or web address] Admit Date: 01/09/2023 01:19:00 PM Patient Name: Marisel Cummins Visit Number: [id number] Discharge Date: 01/11/2023 02:22:00 PM ATTENTION: The Clinical Documentation Specialists (CDI) and [facility] Coding Staff appreciate your assistance in clarifying documentation. Please respond to the clarification below the line at the bottom and electronically sign. The CDI & [facility] Coding staff will review the response and follow-up if needed. Please note: Queries are made part of the Legal Health Record. If you have any questions, please contact the author of this message via ITS. Dr. Clemente Gongora Patient has a documented BMI of 18.8. Additional clarification is requested. History/Risk Factors: COPD, CAD, every day smoker, HLD, DM, anxiety, depression. Presented with abdominal pain. Admitted with splenic infarct. Clinical Indicators: Patients weight is 54 kg Patients height is 5ft 7in Calculated BMI is 18.8 Cardiology: "thin female resting in bed." Treatments: carbohydrate modified diet; meet 75% of estimated nutritional needs 01/10 Dietary Consult: nutrition screen for BMI <19. Poor nutrition intake. Please clarify, is there is an additional diagnosis that is clinically appropriate for this patient? [ ] Underweight [ ] No additional diagnosis [ ] Other, please specify [ ] Unable to determine MTDD
--- NOTE | 2023-01-14 19:08 | PN ---
PROGRESS NOTE Bbbe-jr-khvrhied protein-calorie malnutrition. MMODL / IJN: [id number] /
== END 2023-01-11 14:22 | disposition home or self-care (01) | DRG 982 ==
LOC: EC 10:43 → 6NMEDSUR 16:42 → OBSVTOIN 01-09 13:19
PROVIDERS: ADMIT Family Medicine; ATTEND Family Medicine
PROC: 0JH632Z Insertion of Monitoring Device into Chest Subcutaneous Tissue and Fascia, Percutaneous Approach (ICD-10-PCS; principal; 2023-01-11 10:00)
DX: D73.5 Infarction of spleen (principal); E44.0 Moderate protein-calorie malnutrition; Z68.1 Body mass index [BMI] 19.9 or less, adult; R16.0 Hepatomegaly, not elsewhere classified; K76.0 Fatty (change of) liver, not elsewhere classified; R56.9 Unspecified convulsions; F39 Unspecified mood [affective] disorder; I70.0 Atherosclerosis of aorta; I48.91 Unspecified atrial fibrillation; I25.10 Atherosclerotic heart disease of native coronary artery without angina pectoris; K57.90 Diverticulosis of intestine, part unspecified, without perforation or abscess without bleeding; G89.29 Other chronic pain; M54.9 Dorsalgia, unspecified; J44.89 Other specified chronic obstructive pulmonary disease; K21.9 Gastro-esophageal reflux disease without esophagitis; I49.1 Atrial premature depolarization; F17.210 Nicotine dependence, cigarettes, uncomplicated; Z20.822 Contact with and (suspected) exposure to COVID-19; Z82.49 Family history of ischemic heart disease and other diseases of the circulatory system; Z80.1 Family history of malignant neoplasm of trachea, bronchus and lung; Z79.899 Other long term (current) drug therapy; Z79.82 Long term (current) use of aspirin; Z88.1 Allergy status to other antibiotic agents; Z91.048 Other nonmedicinal substance allergy status; Z79.51 Long term (current) use of inhaled steroids
CPT/HCPCS: 33285; 36415; 71275; 74174; 74177; 80048; 80053; 81001; 83605; 83690; 84145; 85025; 85302; 85303; 85305; 85306; 85379; 85610; 85613; 85730; 86038; 86140; 86225; 86644; 86645; 86663; 86664; 86665; 87636; 93005; 93308; 93312; 93320; 93325; 94640; 96361; 96374; 96375; 96376; 99285

== ENCOUNTER 2023-02-04 16:26 | Emergency (ER) | payer OTHER ==
[2023-02-04 17:34] LABS: Basophils # (A) 0.1 k/uL (0-0.2); Basophils % (A) 1 %; Eosinophils # (A) 0.2 k/uL (0-0.7); Eosinophils % (A) 3 %; Lymphocytes # (A) 1.7 k/uL (1.0-4.8); Lymphocytes % (A) 21 %; MCH 33.6 pg (25.0-35.0); MCHC 33.3 g/dL (31.0-37.0); Mean Platelet Volume 7.6; Monocytes # (A) 0.7 k/uL (0-1.0); Monocytes % (A) 8 %; Neutrophils # (A) 5.3 k/uL (1.3-7.7); Neutrophils % (A) 65 %; Platelet Count 377 k/uL (150-450); RBC 4.16 m/uL (3.80-5.40); RDW 12.7 % (11.5-15.5); WBC 8.2 k/uL (3.8-10.6)
[2023-02-04 17:42] LABS: Appearance,Urine Clear (Clear); Bilirubin,Urine Negative (Negative); Blood,Urine Negative (Negative); Color,Urine Light Yellow; Glucose,Urine (UA) Negative (Negative); Hyaline Casts,Urine 10 /lpf (0-2); Ketones,Urine Negative (Negative); Leukocyte Esterase,Urine Large (Negative); Mucus,Urine Rare /hpf; Nitrite,Urine Negative (Negative); Protein,Urine Negative (Negative); RBC,Urine 3 /hpf (0-5); Specific Gravity,Urine 1.013 (1.001-1.035); Squamous Epithelial Cell,Urine 3 /hpf (0-4); Urobilinogen,Urine <2.0 mg/dL (<2.0); WBC,Urine 2 /hpf (0-5)
[2023-02-04 17:57] LABS: ALT 25 U/L (4-34); AST 39 U/L (14-36); African American GFR (CKD) >90 (>60 ml/min/1.73 sqM); Albumin 4.8 g/dL (3.5-5.0); Alkaline Phosphatase 79 U/L (38-126); Anion Gap 16 mmol/L; Blood Urea Nitrogen 17 mg/dL (7-17); Calcium 10.2 mg/dL (8.4-10.2); Carbon Dioxide 22 mmol/L (22-30); Chloride 95 mmol/L (98-107); Glucose 82 mg/dL (74-99); Non-African American GFR(CKD) >90 (>60 ml/min/1.73 sqM); Sodium 133 mmol/L (137-145); Total Bilirubin 0.8 mg/dL (0.2-1.3); Total Protein 7.7 g/dL (6.3-8.2)
[2023-02-04 17:59] LABS: Potassium 5.3 mmol/L (3.5-5.1)
--- NOTE | 2023-02-04 18:49 | ED ---
General Adult HPI - General Chief complaint: Skin/Abscess/Foreign Body Stated complaint: Bilateral leg swelling/rash Time Seen by Provider: 02/04/23 16:42 Source: patient Mode of arrival: ambulatory Limitations: no limitations - History of Present Illness Initial comments: 62-year-old female presenting to the ED with a chief complaint of rash. Patient states she is unsure of how long she has had rash for as she just noticed the itching today of her left leg. Also due to her noticing the rash today states that she noticed that her legs were more swollen than usual. Denies leg pain. No chest pain or shortness of breath. No abdominal pain. No fever or chills. Patient reports over the past few weeks has not been ill and has been having no other symptoms. No other complaints. - Related Data Home Medications Medication Instructions Recorded Confirmed Ipratropium-Albuterol Nebulize 3 ml INHALATION RT-TID PRN 11/03/22 01/08/23 [Duoneb 0.5 mg-3 mg/3 ml Soln] HYDROcodone/APAP 5-325MG [[place] 1 tab PO Q12H PRN 12/26/22 01/08/23 5-325] amLODIPine [Norvasc] 5 mg PO BID 12/26/22 01/08/23 lamoTRIgine [LaMICtal] 100 mg PO BID 12/26/22 01/08/23 buPROPion SR [Wellbutrin SR] 150 mg PO BID 01/08/23 01/08/23 Previous Rx's Medication Instructions Recorded Budesonide-Formot 160-4.5 Mcg 2 puff INHALATION RT-BID #1 unit 12/01/17 [Symbicort 160-4.5 Mcg Inhaler] Aspirin 81 mg PO DAILY 90 Days #90 tab 01/11/23 Benzocaine [place] [Hurricaine [place]] 1 spray TOPICAL TID PRN each 01/11/23 Allergies Allergy/AdvReac Type Severity Reaction Status Date / Time metronidazole [From Flagyl] AdvReac NUMBNESS Verified 02/04/23 16:39 IN LEGS dust AdvReac Dyspnea Uncoded 02/04/23 16:39 Review of Systems ROS Statement: Those systems with pertinent positive or pertinent negative responses have been documented in the HPI. ROS Other: All systems not noted in ROS Statement are negative. Past Medical History Past Medical History: Chest Pain / Angina, COPD, GERD/Reflux Additional Past Medical History / Comment(s): Chronic bronchitis, sinus tachycardia, chronic back pain, migraines, [place] bilaterally, bilateral tinnitis. History of Any Multi-Drug Resistant Organisms: None Reported Past Surgical History: Appendectomy, Tubal Ligation Additional Past Surgical History / Comment(s): pt states heart cath back in 2004 with no stents Past Anesthesia/Blood Transfusion Reactions: No Reported Reaction Past Psychological History: Anxiety, Depression Smoking Status: Current every day smoker Past Alcohol Use History: None Reported Past Drug Use History: None Reported - Past Family History Brother(s) Family Medical History: Coronary Artery Disease (CAD), Myocardial Infarction (AL) Additional Family Medical History / Comment(s): Brother had AL in his early 40s, pacemaker Sister(s) Family Medical History: Mitral Valve Prolapse (MVP) Father Additional Family Medical History / Comment(s): "post op mrsa infection- from complications of that" Mother Family Medical History: Cancer Additional Family Medical History / Comment(s): Lung cancer General Exam Limitations: no limitations General appearance: alert, in no apparent distress Eye exam: Present: normal appearance Neck exam: Present: normal inspection Respiratory exam: Present: normal lung sounds bilaterally Cardiovascular Exam: Present: regular rate, normal rhythm GI/Abdominal exam: Present: soft Neurological exam: Present: alert, oriented X3 Skin exam: Present: warm, dry, petechiae (Nonpalpable of bilateral lower extremities just proximal to the ankles.) Course Vital Signs 02/04/23 02/04/23 16:35 18:14 Temperature 97.4 F L 97.8 F Pulse Rate 103 H 81 Respiratory 18 17 Rate Blood Pressure 156/78 131/93 O2 Sat by Pulse 98 95 Oximetry Medical Decision Making - Medical Decision Making Was pt. sent in by a medical professional or institution (, PA, STRETCHER OPERATOR, urgent care, hospital, or prison...) When possible be specific @ -No Did you speak to anyone other than the patient for history (EMS, parent, family, police, friend...)? What history was obtained from this source @ -No Did you review nursing and triage notes (agree or disagree)? Why? @ -I reviewed and agree with nursing and triage notes Were old charts reviewed (outside hosp., previous admission, EMS record, old EKG, old radiological studies, urgent care reports/EKG's, prison records)? Report findings @ -No old charts were reviewed Differential Diagnosis (chest pain, altered mental status, abdominal pain women, abdominal pain men, vaginal bleeding, weakness, fever, dyspnea, syncope, headache, dizziness, GI bleed, back pain, seizure, CVA, palpatations, mental health, musculoskeletal)? @ -TTP, HUS, ITP. This is not meant to be an all-inclusive list. EKG interpreted by me (3pts min.). @ -None X-rays interpreted by me (1pt min.). @ -None done CT interpreted by me (1pt min.). @ -None done U/S interpreted by me (1pt. min.). @ -Doppler ultrasound of bilateral lower extremity interpreted by me showing no evidence of DVT or other acute finding. What testing was considered but not performed or refused? (CT, X-rays, U/S, labs)? Why? @ -None What meds were considered but not given or refused? Why? @ -None Did you discuss the management of the patient with other professionals (professionals i.e. , PA, STRETCHER OPERATOR, lab, RT, psych nurse, social worker health services, service center supervisor, teacher, founder chairman and chief creative officer, tactical air control party manager)? Give summary @ -No Was smoking cessation discussed for >3mins.? @ -No Was critical care preformed (if so, how long)? @ -No Were there social determinants of health that impacted care today? How? (Homelessness, low income, unemployed, alcoholism, drug addiction, transportation, low edu. Level, literacy, decrease access to med. care, custodial, rehab)? @ -No Was there de-escalation of care discussed even if they declined (Discuss DNR or withdrawal of care, Hospice)? DNR status @ -No What co-morbidities impacted this encounter? (DM, HTN, Smoking, COPD, CAD, Cancer, CVA, ARF, Chemo, Hep., AIDS, mental health diagnosis, sleep apnea, morbid obesity)? @ -None Was patient admitted / discharged? Hospital course, mention meds given and route, prescriptions, significant lab abnormalities, going to OR and other pertinent info. @ -Discharge 62 year old female presenting with rash bilateral lower extremities. Rash non-blanchable, nonpalpable. Non-warm, nontender. Appears to be petichial. Laboratory studies reviewed. CBC shows no derangements and cell counts. Chemistry panel unremarkable. At this time, patient reports no other symptoms. Vital signs stable, afebrile. Patient discharged home and advised to follow up with her primary care provider. Discussed strict return precautions with patient who verbalized agreement. Undiagnosed new problem with uncertain prognosis? @ -No Drug Therapy requiring intensive monitoring for toxicity (Heparin, Nitro, Insulin, Cardizem)? @ -No Were any procedures done? @ -No Diagnosis/symptom? @ -Rash Acute, or Chronic, or Acute on Chronic? @ -Acute Uncomplicated (without systemic symptoms) or Complicated (systemic symptoms)? @ -Uncomplicated Side effects of treatment? @ -No Exacerbation, Progression, or Severe Exacerbation? @ -No Poses a threat to life or bodily function? How? (Chest pain, [place], AL, pneumonia, PE, COPD, DKA, ARF, appy, cholecystitis, CVA, Diverticulitis, Homicidal, Suicidal, threat to staff... and all critical care pts) @ -No - Lab Data Result diagrams: 02/04/23 17:09 02/04/23 17:09 Lab Results 02/04/23 02/04/23 02/04/23 Range/Units 17:09 17:09 17:09 WBC 8.2 (3.8-10.6) k/uL RBC 4.16 (3.80-5.40) m/uL Hgb 14.0 (11.4-16.0) gm/dL Hct 42.0 (34.0-46.0) % MCV 101.0 H (80.0-100.0) fL MCH 33.6 (25.0-35.0) pg MCHC 33.3 (31.0-37.0) g/dL RDW 12.7 (11.5-15.5) % Plt Count 377 (150-450) k/uL MPV 7.6 Neutrophils % 65 % Lymphocytes % 21 % Monocytes % 8 % Eosinophils % 3 % Basophils % 1 % Neutrophils # 5.3 (1.3-7.7) k/uL Lymphocytes # 1.7 (1.0-4.8) k/uL Monocytes # 0.7 (0-1.0) k/uL Eosinophils # 0.2 (0-0.7) k/uL Basophils # 0.1 (0-0.2) k/uL Sodium 133 L (137-145) mmol/L Potassium 5.3 H (3.5-5.1) mmol/L Chloride 95 L (98-107) mmol/L Carbon Dioxide 22 (22-30) mmol/L Anion Gap 16 mmol/L BUN 17 (7-17) mg/dL Creatinine 0.64 (0.52-1.04) mg/dL Est GFR (CKD-EPI)AfAm >90 (>60 ml/min/1.73 sqM) Est GFR (CKD-EPI)NonAf >90 (>60 ml/min/1.73 sqM) Glucose 82 (74-99) mg/dL Calcium 10.2 (8.4-10.2) mg/dL Total Bilirubin 0.8 (0.2-1.3) mg/dL AST 39 H (14-36) U/L ALT 25 (4-34) U/L Alkaline Phosphatase 79 (38-126) U/L Total Protein 7.7 (6.3-8.2) g/dL Albumin 4.8 (3.5-5.0) g/dL Urine Color Light Yellow Urine Appearance Clear (Clear) Urine pH 6.0 (5.0-8.0) Ur Specific [place] 1.013 (1.001-1.035) Urine Protein Negative (Negative) Urine Glucose (UA) Negative (Negative) Urine Ketones Negative (Negative) Urine Blood Negative (Negative) Urine Nitrite Negative (Negative) Urine Bilirubin Negative (Negative) Urine Urobilinogen <2.0 (<2.0) mg/dL Ur Leukocyte Esterase Large H (Negative) Urine RBC 3 (0-5) /hpf Urine WBC 2 (0-5) /hpf Ur Squamous Epith Cells 3 (0-4) /hpf Hyaline Casts 10 H (0-2) /lpf Urine Mucus Rare H (None) /hpf Disposition Clinical Impression: Rash Disposition: HOME SELF-CARE Condition: Good Additional Instructions: Please return to the Emergency Department if symptoms worsen or any other concerns. Follow up with your primary care provider. Is patient prescribed a controlled substance at d/c from ED?: No Referrals: Clemente Gongora MD [Primary Care Provider] - 1-2 days Time of Disposition: 19:55
--- NOTE | 2023-02-04 18:59 | US ---
EXAMINATION TYPE: US venous doppler duplex LE BI DATE OF EXAM: 02/04/2023 5:32 PM COMPARISON: 10/30/22 CLINICAL INDICATION: Female, 62 years old with history of r/o DVT; Rash on bilateral shins. No hx of DVT SIDE PERFORMED: Bilateral TECHNIQUE: The lower extremity deep venous system is examined utilizing real time linear array sonog joann with graded compression, doppler sonography and color-flow sonography. VESSELS IMAGED: Common Femoral Vein Deep Femoral Vein Greater Saphenous Vein * Femoral Vein Popliteal Vein Small Saphenous Vein * Proximal Calf Veins (* superficial vessels) Right Leg: No evidence for DVT Left Leg: No evidence for DVT IMPRESSION: No evidence for DVT within the bilateral lower extremities imaged from the groin to the upper calves.
[2023-02-04 20:37] LABS: INR 0.8 (<1.2); Partial Thromboplastin Time 22.5 sec (22.0-30.0); Prothrombin Time 9.6 sec (10.0-12.5)
[2023-02-04 20:41] VITALS: BP 130/105; PULSE 87; RESP 18; TEMP 98.2
== END 2023-02-04 20:37 | disposition home or self-care (01) ==
LOC: EC 16:26
DX: R21 Rash and other nonspecific skin eruption (principal); J44.9 Chronic obstructive pulmonary disease, unspecified; K21.9 Gastro-esophageal reflux disease without esophagitis; F41.9 Anxiety disorder, unspecified; F32.A Depression, unspecified; Z79.899 Other long term (current) drug therapy
CPT/HCPCS: 36415; 80053; 81001; 85025; 85610; 85730; 93970; 99284

== ENCOUNTER 2023-02-09 11:24 | Day surgery (SDC) | payer OTHER ==
[~2023-02-09 11:24] MED LIST changes: -LACTATED RINGERS 1,000 ML IV SCH; -LIDOCAINE 1% 20 ML VIAL (10MG/ML) FOR IV START INTRADERMA PRN; -PROPOFOL 10 MG/ML 20 ML VIAL IV ONE; +SODIUM CHLORIDE 0.9% 1,000 ML IV SCH
[2023-02-09 12:15] VITALS: BP 132/64; PULSE 83; RESP 18; TEMP 97.8
[2023-02-09] MEDS ORDERED: LIDOCAINE 1% INJ 10MG/ML (20 ML MDV) ONE (12:42)
[2023-02-09] MEDS ORDERED: LIDOCAINE 1% INJ 10MG/ML (20 ML MDV) SQ ONE (12:43)
[2023-02-09] MEDS ORDERED: MIDAZOLAM 2 MG/2 ML VIAL IVP ONE (12:45)
[2023-02-09] MEDS ORDERED: LIDOCAINE 1%-EPI 1:100,000 20 ML VIAL SQ ONE (13:00)
--- NOTE | 2023-02-09 13:47 | PCN ---
PROCEDURE NOTE PROCEDURE PERFORMED: Explantation of loop recorder. PERFORMED BY: Dr. Marcia Lipscomb. ANESTHESIA: Moderate conscious sedation time was 17 minutes. The patient was administered Versed. Oxygen saturation, hemodynamics, and EKG were monitored closely. CLINICAL INFORMATION: Ms. Marisel Cummins is a 63-year-old lady who was recently in the hospital about a month ago with what seemed to be like an arterial embolization with splenic infarct. She was in sinus rhythm. There was no evidence of atrial fibrillation, but given the clinical picture to rule out any cause for embolization, she was advised to have a loop recorder. This loop recorder was placed by me about a month ago. After due discussion with the patient explaining the rationale, risks, benefits, and options. Dr. Mayo was her admitting software publisher and he also concurred and advised the loop implant. However, about a week or 10 days ago, the patient suddenly felt that loop recorder is not something that she can live with. She complains of feeling dizzy, vibrations, lightheadedness, and she thinks loop recorder should be taken out. I had a long discussion with her yesterday explaining the rationale to keep it at least for 6 months until we make a diagnosis of possible atrial fibrillation. However, patient was adamant that it should come out and therefore, she is here for explantation today. She understands the risks, benefits, and options. PROCEDURE NOTE: Under strict aseptic precautions and local anesthesia after adequate sedation, a small linear incision was made over the loop recorder in the fourth left intercostal space. Blunt dissection was performed and the loop recorder was taken out intact with a hemostat. Good hemostasis was secured and 2 sutures were placed to close the wound and these were 2-0 silk sutures. Excellent hemostasis was achieved. Patient received antibiotic infusion as I began the procedure and she will also be on oral antibiotics for about 4 doses. Procedure was performed uneventfully without any complication. She was sent to the room in a stable condition. Findings and details were discussed with the patient as well as her . She will be discharged later on today and will see Dr. Mayo in about a week for the site check as well. All questions were answered and she will be discharged later on today. MMODL / IJN: [id number] /
== END 2023-02-09 13:59 | disposition home or self-care (01) ==
LOC: CATHEP 11:24
PROVIDERS: ATTEND Internal Medicine Interventional Cardiology
DX: I25.10 Atherosclerotic heart disease of native coronary artery without angina pectoris (principal); E78.5 Hyperlipidemia, unspecified; J44.9 Chronic obstructive pulmonary disease, unspecified; J20.9 Acute bronchitis, unspecified; Z79.51 Long term (current) use of inhaled steroids; Z79.899 Other long term (current) drug therapy; Z87.891 Personal history of nicotine dependence
CPT/HCPCS: 33286; 99152; 99153; J2250; J0690; J2001

== ENCOUNTER 2023-03-02 06:23 | Emergency (ER) | payer OTHER ==
[2023-03-02] MEDS ORDERED: KETOROLAC 15 MG/ML 1 ML VIAL IVP STA (06:47)
--- NOTE | 2023-03-02 07:34 | ED ---
Back Pain HPI - General Chief Complaint: Back Pain/Injury Stated Complaint: Back Pain Time Seen by Provider: 03/02/23 06:30 Source: patient, RN notes reviewed Limitations: no limitations - History of Present Illness Initial Comments: 63-year-old female presents emergency Department chief complaint of mid back pain. Patient states started yesterday states that she initially felt she is pulled muscle Patient states she has pain as by her spine states that she's had a history of fracture. Patient states that she has no pain at rest only with movement especially over her arms she is increasing pain denies chest pain shortness of breath no fevers or chills no cough or cold like symptoms. - Related Data Home Medications Medication Instructions Recorded Confirmed Ipratropium-Albuterol Nebulize 3 ml INHALATION RT-TID PRN 11/03/22 02/09/23 [Duoneb 0.5 mg-3 mg/3 ml Soln] HYDROcodone/APAP 5-325MG [[place] 1 tab PO Q12H PRN 12/26/22 02/09/23 5-325] amLODIPine [Norvasc] 5 mg PO BID 12/26/22 02/09/23 lamoTRIgine [LaMICtal] 100 mg PO BID 12/26/22 02/09/23 buPROPion SR [Wellbutrin SR] 150 mg PO BID 01/08/23 02/09/23 ALPRAZolam [Xanax] 0.5 mg PO QAM 02/08/23 02/09/23 HYDROcodone/APAP 7.5-325MG [[place] 1 tab PO Q4H PRN 02/08/23 02/09/23 7.5-325] Ibuprofen 800 mg PO Q12H PRN 02/08/23 02/09/23 Previous Rx's Medication Instructions Recorded Budesonide-Formot 160-4.5 Mcg 2 puff INHALATION RT-BID #1 unit 12/01/17 [Symbicort 160-4.5 Mcg Inhaler] Aspirin 81 mg PO DAILY 90 Days #90 tab 01/11/23 ceFAZolin [Kefzol] 250 mg PO Q8HR #4 02/09/23 Cyclobenzaprine [Flexeril] 10 mg PO TID PRN #15 tab 03/02/23 HYDROcodone/APAP 7.5-325MG [[place] 1 tab PO Q6HR PRN 3 Days #12 tab 03/02/23 7.5-325] predniSONE 50 mg PO DAILY #5 tab 03/02/23 Allergies Allergy/AdvReac Type Severity Reaction Status Date / Time metronidazole [From Flagyl] AdvReac NUMBNESS Verified 03/02/23 06:27 IN LEGS dust AdvReac Dyspnea Uncoded 03/02/23 06:27 Review of Systems ROS Statement: Those systems with pertinent positive or pertinent negative responses have been documented in the HPI. ROS Other: All systems not noted in ROS Statement are negative. Past Medical History Past Medical History: Chest Pain / Angina, COPD, GERD/Reflux Additional Past Medical History / Comment(s): Chronic bronchitis, sinus tachycardia, chronic back pain, migraines, CHITINA bilaterally, bilateral tinnitis. History of Any Multi-Drug Resistant Organisms: None Reported Past Surgical History: Appendectomy, Hysterectomy, Tubal Ligation Additional Past Surgical History / Comment(s): pt states heart cath back in 2004 with no stents, hysterectomy 11/05 Past Anesthesia/Blood Transfusion Reactions: No Reported Reaction Past Psychological History: Anxiety, Depression Smoking Status: Former smoker Past Alcohol Use History: None Reported Past Drug Use History: None Reported - Past Family History Brother(s) Family Medical History: Coronary Artery Disease (CAD), Myocardial Infarction (ND) Additional Family Medical History / Comment(s): Brother had ND in his early 40s, pacemaker Sister(s) Family Medical History: Mitral Valve Prolapse (MVP) Father Additional Family Medical History / Comment(s): "post op mrsa infection- from complications of that" Mother Family Medical History: Cancer Additional Family Medical History / Comment(s): Lung cancer General Exam Limitations: no limitations General appearance: alert, in no apparent distress Head exam: Present: atraumatic, normocephalic, normal inspection Eye exam: Present: normal appearance, PERRL, EOMI. Absent: scleral icterus, conjunctival injection, periorbital swelling ENT exam: Present: normal exam, mucous membranes moist Neck exam: Present: normal inspection, full ROM. Absent: tenderness, meningismus, lymphadenopathy Respiratory exam: Present: normal lung sounds bilaterally. Absent: respiratory distress, wheezes, rales, rhonchi, stridor Cardiovascular Exam: Present: regular rate, normal rhythm, normal heart sounds. Absent: systolic murmur, diastolic murmur, rubs, gallop, clicks GI/Abdominal exam: Present: soft, normal bowel sounds. Absent: distended, tenderness, guarding, rebound, rigid Back exam: Present: full ROM, tenderness, paraspinal tenderness, vertebral tenderness Neurological exam: Present: alert, oriented X3, CN II-XII intact, reflexes normal. Absent: motor sensory deficit Skin exam: Present: warm, dry, intact, normal color. Absent: rash Course Vital Signs 03/02/23 03/02/23 03/02/23 06:24 07:27 08:49 Temperature 98 F 97.4 F L Pulse Rate 97 93 83 Respiratory 22 18 18 Rate Blood Pressure 165/89 152/91 144/83 O2 Sat by Pulse 94 L 96 95 Oximetry 03/02/23 10:05 Temperature 97.5 F L Pulse Rate 80 Respiratory 18 Rate Blood Pressure 151/95 O2 Sat by Pulse 95 Oximetry Medical Decision Making - Medical Decision Making Was pt. sent in by a medical professional or institution (, PA, PROJECT OFFICER, urgent care, hospital, or [facility]...) When possible be specific @ -No Did you speak to anyone other than the patient for history (EMS, parent, family, police, friend...)? What history was obtained from this source @ -No Did you review nursing and triage notes (agree or disagree)? Why? @ -I reviewed and agree with nursing and triage notes Were old charts reviewed (outside hosp., previous admission, EMS record, old EKG, old radiological studies, urgent care reports/EKG's, [facility] records)? Report findings @ -No old charts were reviewed Differential Diagnosis (chest pain, altered mental status, abdominal pain women, abdominal pain men, vaginal bleeding, weakness, fever, dyspnea, syncope, headache, dizziness, GI bleed, back pain, seizure, CVA, palpatations, mental health, musculoskeletal)? @ -Differential Back Pain: Strain, zoster, cauda equina syndrome, epidural abscess, vertebral osteomyelitis, discitis, fracture, subluxation, disc herniation, DJD, spinal stenosis, dissection, AAA, pancreatitis, peptic ulcer disease, pyelonephritis, kidney stone, this is not meant to be an all-inclusive list.e EKG interpreted by me (3pts min.). @ -As above X-rays interpreted by me (1pt min.). @ -[Chest x-ray two-view no acute cardiopulmonary process, X-ray thoracic spine showing degenerative changes, old compression fracture CT interpreted by me (1pt min.). @ -None done U/S interpreted by me (1pt. min.). @ -None done What testing was considered but not performed or refused? (CT, X-rays, U/S, labs)? Why? @ -None What meds were considered but not given or refused? Why? @ -None Did you discuss the management of the patient with other professionals (professionals i.e. DrAurea, PA, PROJECT OFFICER, lab, RT, psych nurse, socially responsible investment adviser, scheduling manager, teacher, homicide squad commanding officer, supportive employment case manager)? Give summary @ -No Was smoking cessation discussed for >3mins.? @ -No Was critical care preformed (if so, how long)? @ -No Were there social determinants of health that impacted care today? How? (Homelessness, low income, unemployed, alcoholism, drug addiction, transportation, low edu. Level, literacy, decrease access to med. care, long term, rehab)? @ -No Was there de-escalation of care discussed even if they declined (Discuss DNR or withdrawal of care, Hospice)? DNR status @ -No What co-morbidities impacted this encounter? (DM, HTN, Smoking, COPD, CAD, Cancer, CVA, ARF, Chemo, Hep., AIDS, mental health diagnosis, sleep apnea, morbid obesity)? @ -None Was patient admitted / discharged? Hospital course, mention meds given and route, prescriptions, significant lab abnormalities, going to OR and other pertinent info. @ -Discharge patient felt greatly improved after muscle skeletal analgesics. This is reproducible thoracic pain EKG, labs are unremarkable patient discharged in stable condition. Undiagnosed new problem with uncertain prognosis? @ -No Drug Therapy requiring intensive monitoring for toxicity (Heparin, Nitro, Insulin, Cardizem)? @ -No Were any procedures done? @ -No Diagnosis/symptom? @ -Thoracic back pain Acute, or Chronic, or Acute on Chronic? @ -[Acute Uncomplicated (without systemic symptoms) or Complicated (systemic symptoms)? @ -[Uncomplicated Side effects of treatment? @ -No Exacerbation, Progression, or Severe Exacerbation? @ -No Poses a threat to life or bodily function? How? (Chest pain, USA, ND, pneumonia, PE, COPD, DKA, ARF, appy, cholecystitis, CVA, Diverticulitis, Homicidal, Ileana cidal, threat to staff... and all critical care pts) @ -No - Lab Data Result diagrams: 03/02/23 07:51 03/02/23 07:51 Lab Results 03/02/23 03/02/23 03/02/23 Range/Units 07:51 07:51 07:51 WBC 9.0 (3.8-10.6) k/uL RBC 4.33 (3.80-5.40) m/uL Hgb 13.7 (11.4-16.0) gm/dL Hct 42.0 (34.0-46.0) % MCV 97.0 (80.0-100.0) fL MCH 31.5 (25.0-35.0) pg MCHC 32.5 (31.0-37.0) g/dL RDW 13.0 (11.5-15.5) % Plt Count 695 H (150-450) k/uL MPV 7.1 Neutrophils % 75 % Lymphocytes % 14 % Monocytes % 8 % Eosinophils % 2 % Basophils % 1 % Neutrophils # 6.7 (1.3-7.7) k/uL Lymphocytes # 1.2 (1.0-4.8) k/uL Monocytes # 0.7 (0-1.0) k/uL Eosinophils # 0.1 (0-0.7) k/uL Basophils # 0.1 (0-0.2) k/uL Sodium 129 L (137-145) mmol/L Potassium 5.0 (3.5-5.1) mmol/L Chloride 95 L (98-107) mmol/L Carbon Dioxide 24 (22-30) mmol/L Anion Gap 10 mmol/L BUN 4 L (7-17) mg/dL Creatinine 0.41 L (0.52-1.04) mg/dL Est GFR (CKD-EPI)AfAm >90 (>60 ml/min/1.73 sqM) Est GFR (CKD-EPI)NonAf >90 (>60 ml/min/1.73 sqM) Glucose 103 H (74-99) mg/dL Calcium 9.4 (8.4-10.2) mg/dL Total Bilirubin 0.5 (0.2-1.3) mg/dL AST 24 (14-36) U/L ALT 23 (4-34) U/L Alkaline Phosphatase 114 (38-126) U/L Troponin I <0.012 (0.000-0.034) ng/mL Total Protein 7.0 (6.3-8.2) g/dL Albumin 4.2 (3.5-5.0) g/dL - EKG Data -: EKG Interpreted by Me EKG Comments: EKG performed at 17:30 6H and rhythm with short PA rate of 84 PA 114 QRS 102 QT/QTC 359/400 Disposition Clinical Impression: Thoracic myofascial strain, Thoracic back pain Disposition: HOME SELF-CARE Condition: Stable Instructions (If sedation given, give patient instructions): Muscle Spasm (ED), Thoracic Back Strain (ED) Additional Instructions: Please return to the Emergency Department if symptoms worsen or any other concerns. Prescriptions: Cyclobenzaprine [Flexeril] 10 mg PO TID PRN #15 tab PRN Reason: Muscle Spasm HYDROcodone/APAP 7.5-325MG [[place] 7.5-325] 1 tab PO Q6HR PRN 3 Days #12 tab PRN Reason: Pain predniSONE 50 mg PO DAILY #5 tab Is patient prescribed a controlled substance at d/c from ED?: Yes When asked, does pt state using other controlled substances?: No If prescribed controlled substance>3 days was MAPS reviewed?: Prescribed <3 Days If opioid is for acute pain is fill amount 7 days or less?: Yes If Rx opioid, was Start Talking consent form obtained?: Yes Referrals: Clemente Gongora MD [Primary Care Provider] - 1-2 days Time of Disposition: 08:41
--- NOTE | 2023-03-02 07:36 | XR ---
EXAMINATION TYPE: XR chest 2V DATE OF EXAM: 03/02/2023 COMPARISON: 12/26/2022, CT 01/08/2023 and 09/17/2019 HISTORY: 63-year-old female with pain TECHNIQUE: PA and lateral views FINDINGS: Heart normal size. Aorta and pulmonary vasculature within normal limits. Hyperinflation. Bandlike sca rring anterior right midlung is similar. Additional strandy scarring at the inferior lingula. Ongoing outpatient CT follow-up to exclude any underlying enlarging pulmonary nodule within the periphery of the right midlung. IMPRESSION: COPD with similar strandy scarring. Outpatient CT follow-up in 3 months to exclude any suspicious enl arging underlying pulmonary nodule at the right midlung.
--- NOTE | 2023-03-02 07:38 | XR ---
EXAMINATION TYPE: XR thoracic spine 3 views DATE OF EXAM: 03/02/2023 COMPARISON: 10/16/2021 HISTORY: 63-year-old female complains of upper back pain TECHNIQUE: 3 views FINDINGS: 12 rib-bearing thoracic vertebral bodies. All pedicles are visualized. There is mild anteri or wedge deformity of a midthoracic vertebral body which is unchanged compared to 10/16/2021. Moderate degenerative disc disease throughout the mid and lower thoracic spine. Remaining vertebral body heigh ts are preserved and alignment is maintained. Mid thoracic kyphosis may be slightly more accentuated than the prior comparison IMPRESSION: Mild degenerative disc disease mid to lower thoracic spine. Mild anterior wedge deformity of a midtho racic vertebral body is unchanged from 10/16/2021. No new vertebral compression collapse or malalignmen t seen.
[2023-03-02 07:58] LABS: Basophils # (A) 0.1 k/uL (0-0.2); Basophils % (A) 1 %; Eosinophils # (A) 0.1 k/uL (0-0.7); Eosinophils % (A) 2 %; HGB 13.7 gm/dL (11.4-16.0); Lymphocytes # (A) 1.2 k/uL (1.0-4.8); Lymphocytes % (A) 14 %; MCH 31.5 pg (25.0-35.0); MCHC 32.5 g/dL (31.0-37.0); Mean Platelet Volume 7.1; Monocytes # (A) 0.7 k/uL (0-1.0); Monocytes % (A) 8 %; Neutrophils # (A) 6.7 k/uL (1.3-7.7); Neutrophils % (A) 75 %; Platelet Count 695 k/uL (150-450); RBC 4.33 m/uL (3.80-5.40)
[2023-03-02 08:05] VITALS: RESP 18
[2023-03-02] MEDS ORDERED: HYDROmorphone 0.5 MG/0.5 ML SYRINGE IVP STA (08:07)
[2023-03-02 08:17] LABS: ALT 23 U/L (4-34); AST 24 U/L (14-36); African American GFR (CKD) >90 (>60 ml/min/1.73 sqM); Albumin 4.2 g/dL (3.5-5.0); Alkaline Phosphatase 114 U/L (38-126); Anion Gap 10 mmol/L; Blood Urea Nitrogen 4 mg/dL (7-17); Calcium 9.4 mg/dL (8.4-10.2); Carbon Dioxide 24 mmol/L (22-30); Chloride 95 mmol/L (98-107); Glucose 103 mg/dL (74-99); Non-African American GFR(CKD) >90 (>60 ml/min/1.73 sqM); Sodium 129 mmol/L (137-145); Total Bilirubin 0.5 mg/dL (0.2-1.3)
[2023-03-02 10:30] VITALS: BP 151/95; PULSE 80; TEMP 97.5
== END 2023-03-02 10:10 | disposition home or self-care (01) ==
LOC: EC 06:23
DX: S29.012A Strain of muscle and tendon of back wall of thorax, initial encounter (principal); I25.2 Old myocardial infarction; J44.9 Chronic obstructive pulmonary disease, unspecified; F41.9 Anxiety disorder, unspecified; F32.A Depression, unspecified; Z88.8 Allergy status to other drugs, medicaments and biological substances; Z79.899 Other long term (current) drug therapy; Z87.891 Personal history of nicotine dependence; Z88.1 Allergy status to other antibiotic agents; X58.XXXA Exposure to other specified factors, initial encounter
CPT/HCPCS: 99284; 96374; 96375 ×2; 36415; 93005; 80053; 84484; 85025; 72070; 71046; J3360; J1885; J1170

== ENCOUNTER 2023-03-09 01:22 | Emergency (ER) | payer OTHER ==
[2023-03-09] MEDS ORDERED: KETOROLAC 15 MG/ML 1 ML VIAL IM STA (02:46)
[2023-03-09] MEDS ORDERED: HYDROmorphone 0.5 MG/0.5 ML SYRINGE IM STA (02:47)
[2023-03-09] MEDS ORDERED: ORPHENADRINE 30 MG/ML 2 ML VIAL IM STA (03:26)
--- NOTE | 2023-03-09 03:52 | ED ---
Back Pain HPI - General Chief Complaint: Back Pain/Injury Stated Complaint: back pain Time Seen by Provider: 03/09/23 02:40 Source: patient Limitations: no limitations - History of Present Illness Initial Comments: 63-year-old female presenting with chief complaint of back pain. Pain is located in the thoracic and lower back region. No acute injury or trauma. Patient was seen here around a week ago for the same symptoms. No loss of bowel or bladder control or saddle paresthesia. No dysuria, hematuria, urgency, frequency, fever, chills, nausea, vomiting, abdominal pain, chest pain, difficulty breathing. Patient was previously given [place] which she states she is out of. States that muscle relaxers do not work. - Related Data Home Medications Medication Instructions Recorded Confirmed Ipratropium-Albuterol Nebulize 3 ml INHALATION RT-TID PRN 11/03/22 02/09/23 [Duoneb 0.5 mg-3 mg/3 ml Soln] HYDROcodone/APAP 5-325MG [[place] 1 tab PO Q12H PRN 12/26/22 02/09/23 5-325] amLODIPine [Norvasc] 5 mg PO BID 12/26/22 02/09/23 lamoTRIgine [LaMICtal] 100 mg PO BID 12/26/22 02/09/23 buPROPion SR [Wellbutrin SR] 150 mg PO BID 01/08/23 02/09/23 ALPRAZolam [Xanax] 0.5 mg PO QAM 02/08/23 02/09/23 HYDROcodone/APAP 7.5-325MG [[place] 1 tab PO Q4H PRN 02/08/23 02/09/23 7.5-325] Ibuprofen 800 mg PO Q12H PRN 02/08/23 02/09/23 Previous Rx's Medication Instructions Recorded Budesonide-Formot 160-4.5 Mcg 2 puff INHALATION RT-BID #1 unit 12/01/17 [Symbicort 160-4.5 Mcg Inhaler] Aspirin 81 mg PO DAILY 90 Days #90 tab 01/11/23 ceFAZolin [Kefzol] 250 mg PO Q8HR #4 02/09/23 Cyclobenzaprine [Flexeril] 10 mg PO TID PRN #15 tab 03/02/23 HYDROcodone/APAP 7.5-325MG [[place] 1 tab PO Q6HR PRN 3 Days #12 tab 03/02/23 7.5-325] predniSONE 50 mg PO DAILY #5 tab 03/02/23 Cyclobenzaprine [Flexeril] 10 mg PO TID PRN #15 tab 03/09/23 Allergies Allergy/AdvReac Type Severity Reaction Status Date / Time metronidazole [From Flagyl] AdvReac NUMBNESS Verified 03/09/23 01:31 IN LEGS dust AdvReac Dyspnea Uncoded 03/09/23 01:31 Review of Systems ROS Statement: Those systems with pertinent positive or pertinent negative responses have been documented in the HPI. ROS Other: All systems not noted in ROS Statement are negative. Past Medical History Past Medical History: Chest Pain / Angina, COPD, GERD/Reflux Additional Past Medical History / Comment(s): Chronic bronchitis, sinus tachycardia, chronic back pain, migraines, CIRCLE bilaterally, bilateral tinnitis. History of Any Multi-Drug Resistant Organisms: None Reported Past Surgical History: Appendectomy, Hysterectomy, Tubal Ligation Additional Past Surgical History / Comment(s): pt states heart cath back in 2004 with no stents, hysterectomy 11/05 Past Anesthesia/Blood Transfusion Reactions: No Reported Reaction Past Psychological History: Anxiety, Depression Smoking Status: Former smoker Past Alcohol Use History: None Reported Past Drug Use History: None Reported - Past Family History Brother(s) Family Medical History: Coronary Artery Disease (CAD), Myocardial Infarction (ID) Additional Family Medical History / Comment(s): Brother had ID in his early 40s, pacemaker Sister(s) Family Medical History: Mitral Valve Prolapse (MVP) Father Additional Family Medical History / Comment(s): "post op mrsa infection- from complications of that" Mother Family Medical History: Cancer Additional Family Medical History / Comment(s): Lung cancer General Exam Limitations: no limitations General appearance: alert, in no apparent distress Head exam: Present: atraumatic, normocephalic Eye exam: Present: normal appearance, EOMI Neck exam: Present: normal inspection. Absent: meningismus Respiratory exam: Absent: respiratory distress Cardiovascular Exam: Present: tachycardia Back exam: Present: normal inspection, muscle spasm, paraspinal tenderness Neurological exam: Present: alert, oriented X3 Psychiatric exam: Present: normal affect, normal mood Skin exam: Present: warm, dry Course Vital Signs 03/09/23 03/09/23 01:32 04:20 Temperature 97.9 F 97.8 F Pulse Rate 118 H 83 Respiratory 22 18 Rate Blood Pressure 148/80 133/85 O2 Sat by Pulse 94 L 94 L Oximetry Medical Decision Making - Medical Decision Making Was pt. sent in by a medical professional or institution (, ADENIKE, CHARGER TESTER, urgent care, hospital, or fpc...) When possible be specific @ -No Did you speak to anyone other than the patient for history (EMS, parent, family, police, friend...)? What history was obtained from this source @ -No Did you review nursing and triage notes (agree or disagree)? Why? @ -I reviewed and agree with nursing and triage notes Were old charts reviewed (outside hosp., previous admission, EMS record, old EKG, old radiological studies, urgent care reports/EKG's, [facility]pc records)? Report findings @ -Previous ER visit for similar complaint reviewed Differential Diagnosis (chest pain, altered mental status, abdominal pain women, abdominal pain men, vaginal bleeding, weakness, fever, dyspnea, syncope, headache, dizziness, GI bleed, back pain, seizure, CVA, palpatations, mental health, musculoskeletal)? @ - MDM Differential Back Pain: Strain, zoster, cauda equina syndrome, epidural abscess, vertebral osteomyelitis, discitis, fracture, subluxation, disc herniation, DJD, spinal stenosis, dissection, AAA, pancreatitis, peptic ulcer disease, pyelonephritis, kidney stone this is not meant to be an all-inclusive list. EKG interpreted by me (3pts min.). @ -As above X-rays interpreted by me (1pt min.). @ -None done CT interpreted by me (1pt min.). @ -None done U/S interpreted by me (1pt. min.). @ -None done What testing was considered but not performed or refused? (CT, X-rays, U/S, labs)? Why? @ -None What meds were considered but not given or refused? Why? @ -None Did you discuss the management of the patient with other professionals (professionals i.e. , ADENIKE, CHARGER TESTER, lab, RT, psych nurse, drug abuse social worker, clinical pharmacologist, teacher, payroll officer, case aide)? Give summary @ -No Was smoking cessation discussed for >3mins.? @ -No Was critical care preformed (if so, how long)? @ -No Were there social determinants of health that impacted care today? How? (Homelessness, low income, unemployed, alcoholism, drug addiction, transportation, low edu. Level, literacy, decrease access to med. care, [facility], rehab)? @ -No Was there de-escalation of care discussed even if they declined (Discuss DNR or withdrawal of care, Hospice)? DNR status @ -No What co-morbidities impacted this encounter? (DM, HTN, Smoking, COPD, CAD, Cancer, CVA, ARF, Chemo, Hep., AIDS, mental health diagnosis, sleep apnea, morbid obesity)? @ -None Was patient admitted / discharged? Hospital course, mention meds given and route, prescriptions, significant lab abnormalities, going to OR and other pertinent info. @ -63-year-old female presenting with chief complaint of back pain. Seen here a week ago for the same complaint. No new injury or trauma. No red flag symptoms. History and physical exam were conducted. Patient is initially tachycardic, likely due to pain. She is provided with pain medication, vital signs have improved. She is discharged home and instructed to follow-up with PCP. Follow-up with PCP. Report back to ER with any new or worsening symptoms. Discussed return parameters and answered all questions. Patient conveyed verbal understanding and agreed to the plan. I discussed this case in detail with my attending Dr. Catalan Undiagnosed new problem with uncertain prognosis? @ -No Drug Therapy requiring intensive monitoring for toxicity (Heparin, Nitro, Insulin, Cardizem)? @ -No Were any procedures done? @ -No Diagnosis/symptom? @ -Back pain Acute, or Chronic, or Acute on Chronic? @ -Acute Uncomplicated (without systemic symptoms) or Complicated (systemic symptoms)? @ -Uncomplicated Side effects of treatment? @ -No Exacerbation, Progression, or Severe Exacerbation? @ -No Poses a threat to life or bodily function? How? (Chest pain, USA, ID, pneumonia, PE, COPD, DKA, ARF, appy, cholecystitis, CVA, Diverticulitis, Homicidal, Suicidal, threat to staff... and all critical care pts) @ -Low likelihood Disposition Clinical Impression: Thoracic back pain Disposition: HOME SELF-CARE Condition: Good Instructions (If sedation given, give patient instructions): Chronic Back Pain (DC) Additional Instructions: Follow-up with PCP. Report back to ER with any new or worsening symptoms. Prescriptions: Cyclobenzaprine [Flexeril] 10 mg PO TID PRN #15 tab PRN Reason: Spasms Is patient prescribed a controlled substance at d/c from ED?: No Referrals: Clemente Gongora MD [Primary Care Provider] - 1-2 days Time of Disposition: 04:15
[2023-03-09 05:06] VITALS: BP 133/85; PULSE 83; RESP 18; TEMP 97.8
== END 2023-03-09 04:25 | disposition home or self-care (01) ==
LOC: EC 01:22
DX: M54.6 Pain in thoracic spine (principal); J44.9 Chronic obstructive pulmonary disease, unspecified; F41.9 Anxiety disorder, unspecified; F32.A Depression, unspecified; Z79.899 Other long term (current) drug therapy; Z88.8 Allergy status to other drugs, medicaments and biological substances; Z87.891 Personal history of nicotine dependence
CPT/HCPCS: 99284; 96372 ×3; J2360; J1885; J1170

== ENCOUNTER → 2023-05-15 | Day surgery (SDC) | payer OTHER ==
[2023-05-11 14:52] VITALS: BMI 19.3
[~2023-05-15] MED LIST changes: +LIDOCAINE 1% (10MG/ML) FOR IV START INTRADERMA PRN; +PROPOFOL 10 MG/ML 20 ML VIAL IV ONE; -SODIUM CHLORIDE 0.9% 1,000 ML IV SCH
[2023-05-15 12:46] VITALS: TEMP 97.9
[2023-05-15] MEDS: LACTATED RINGERS 1,000 ML IV SCH (12:51)
--- NOTE | 2023-05-15 13:53 | P.GSHP ---
History of Present Illness H&P Date: 05/15/23 Chief Complaint: diarrhea, screening colonoscopy this a 60-year-old female been safe for colonoscopy. Patient is issues with diarrhea. Patient had a colonoscopy for many years ago. She states his normal. Past Medical History Past Medical History: Chest Pain / Angina, COPD, GERD/Reflux, Hearing Disorder / Deafness Additional Past Medical History / Comment(s): Chronic bronchitis, sinus tachycardia, chronic back pain, migraines, bilateral hearing aid use, bilateral tinnitis. History of Any Multi-Drug Resistant Organisms: None Reported Past Surgical History: Appendectomy, Heart Catheterization, Hysterectomy, Tubal Ligation Additional Past Surgical History / Comment(s): Loop recorder inserted and later removed. Past Anesthesia/Blood Transfusion Reactions: No Reported Reaction Past Psychological History: Anxiety, Depression Smoking Status: Former smoker Past Alcohol Use History: None Reported Additional Past Alcohol Use History / Comment(s): Started smoking in 1976 and quit 01/05. Past Drug Use History: None Reported - Past Family History Brother(s) Family Medical History: Coronary Artery Disease (CAD), Myocardial Infarction (CT) Additional Family Medical History / Comment(s): CT in his early 40s, had pacemaker. Sister(s) Family Medical History: Mitral Valve Prolapse (MVP) Father Additional Family Medical History / Comment(s): "Post Op MRSA infection- from complications of that." Mother Family Medical History: Cancer Additional Family Medical History / Comment(s): Lung cancer. Medications and Allergies Home Medications Medication Instructions Recorded Confirmed Type Budesonide-Formot 160-4.5 Mcg 2 puff INHALATION RT-BID #1 unit 12/01/17 05/11/23 Rx [Symbicort 160-4.5 Mcg Inhaler] Ipratropium-Albuterol Nebulize 3 ml INHALATION RT-TID PRN 11/03/22 05/11/23 History [Duoneb 0.5 mg-3 mg/3 ml Soln] HYDROcodone/APAP 5-325MG [Reliance 1 tab PO Q12H PRN 12/26/22 05/11/23 History 5-325] amLODIPine [Norvasc] 5 mg PO BID 12/26/22 05/11/23 History lamoTRIgine [LaMICtal] 100 mg PO BID 12/26/22 05/11/23 History buPROPion SR [Wellbutrin SR] 150 mg PO BID 01/08/23 05/11/23 History Aspirin 81 mg PO DAILY 90 Days #90 tab 01/11/23 05/11/23 Rx ALPRAZolam [Xanax] 0.5 mg PO QAM 02/08/23 05/11/23 History Ibuprofen 800 mg PO Q12H PRN 02/08/23 05/11/23 History Cyclobenzaprine [Flexeril] 10 mg PO TID PRN #15 tab 03/09/23 05/11/23 Rx Doxycycline(Unknown Dose) 1 tab PO DIRECTED 05/11/23 05/11/23 History Fexofenadine (Unknown Dose) 1 tab PO DAILY 05/11/23 05/11/23 History Montelukast [Singulair] 10 mg PO DAILY 05/11/23 05/11/23 History Allergies Allergy/AdvReac Type Severity Reaction Status Date / Time dust AdvReac Dyspnea Uncoded 05/15/23 12:32 Surgical - Exam Vital Signs Temp Pulse Resp BP Pulse Ox 97.9 F 103 H 16 142/91 94 L 05/15/23 12:43 05/15/23 12:43 05/15/23 12:43 05/15/23 12:43 05/15/23 12:43 - General well developed, well nourished, no distress - Eyes PERRL - ENT normal pinna, normal nares - Neck no masses - Respiratory normal expansion - Abdomen Abdomen: soft, non tender Assessment and Plan Assessment: diarrhea, we'll perform screening colonoscopy.
--- NOTE | 2023-05-15 13:59 | P.OP ---
Date of Procedure: 05/15/23 Preoperative Diagnosis: diarrhea, screening colonoscopy Postoperative Diagnosis: tortuous colon Internal and external hemorrhoids Procedure(s) Performed: EGD Anesthesia: MAC Surgeon: Juan José Joyner Pathology: none sent Condition: stable Disposition: PACU Description of Procedure: thipatient's placed on the endoscopy table in the lateral position. She she received IV sedation. Digital rectal exam was performed. This revealed internal and external hemorrhoids. Flexible colonoscope was then placed patient anus and passed throughout the colon. The scope passed in the sigmoid colon. The colon was quite tortuous. At this point the scope was withdrawn. A pediatric colonoscope was then placed patient anus and passed with colon. However the colonoscope could not be advanced beyond this sigmoid colon secondary tortuous colon. This point scope withdrawn. The visualized; rectum appeared normal. There were internal and external hemorrhoids noted. The patient was scheduled for a barium enema.
[2023-05-15 14:58] VITALS: BP 131/83; PULSE 94; RESP 20
--- NOTE | 2023-05-15 17:43 | FL ---
EXAMINATION TYPE: FL barium enema w air contrast DATE OF EXAM: 05/15/2023 COMPARISON: HISTORY: Incomplete colonoscopy TECHNIQUE: Single contrast technique with water-soluble contrast. Fluoroscopic observation, fluorosco pic imaging, and overhead radiographs were obtained. FINDINGS: Contrast refluxes through the colon to the terminal ileum. No persistent filling defects or circumferential areas of narrowing are identified. The sacral space appears normal hepatic and splenic flexures appear normal. There is normal post void residual. IMPRESSION: 1. Unremarkable single contrast lower GI.
== END ==
LOC: ORWHC2ENDO 11:48
PROVIDERS: ATTEND Surgery
DX: K64.4 Residual hemorrhoidal skin tags (principal); K64.8 Other hemorrhoids; K63.89 Other specified diseases of intestine; J44.9 Chronic obstructive pulmonary disease, unspecified; G89.29 Other chronic pain; F32.A Depression, unspecified; F41.9 Anxiety disorder, unspecified; H91.90 Unspecified hearing loss, unspecified ear; K21.9 Gastro-esophageal reflux disease without esophagitis; Z79.51 Long term (current) use of inhaled steroids; Z87.891 Personal history of nicotine dependence; Z90.49 Acquired absence of other specified parts of digestive tract; Z90.710 Acquired absence of both cervix and uterus; Z79.899 Other long term (current) drug therapy
CPT/HCPCS: 74280; 45330; J2704; Q9967

== ENCOUNTER 2023-06-06 09:11 | Emergency (ER) | payer OTHER ==
--- NOTE | 2023-06-06 09:53 | ED ---
Abdominal Pain HPI - General Chief Complaint: Abdominal Pain Stated Complaint: Pain in bowel Time Seen by Provider: 06/06/23 09:21 Source: patient, RN notes reviewed Mode of arrival: ambulatory Limitations: no limitations - History of Present Illness Initial Comments: 63-year-old female presents emergency department with chief complaint of abdominal pain. Patient states she had a recent colonoscopy and barium enema GI series states that she is having increasing pain in the lower abdomen. She states her prior studies were ordered by . Patient states that she has not had a bowel movement in 5 days. Patient denies any fevers no chest pain no back pain - Related Data Home Medications Medication Instructions Recorded Confirmed Ipratropium-Albuterol Nebulize 3 ml INHALATION RT-TID PRN 11/03/22 06/06/23 [Duoneb 0.5 mg-3 mg/3 ml Soln] amLODIPine [Norvasc] 5 mg PO DAILY 12/26/22 06/06/23 lamoTRIgine [LaMICtal] 100 mg PO BID 12/26/22 06/06/23 ALPRAZolam [Xanax] 0.5 mg PO Q12H 02/08/23 06/06/23 Montelukast [Singulair] 10 mg PO DAILY 05/11/23 06/06/23 Fexofenadine HCl [Valeri Allergy] 180 mg PO DAILY 06/06/23 06/06/23 HYDROcodone/APAP 7.5-325MG [[place] 1 tab PO BID PRN 06/06/23 06/06/23 7.5-325] Tiotropium 2.5 Mcg/Puff [Spiriva 2 puff INHALATION RT-BID 06/06/23 06/06/23 Respimat 2.5 Mcg] Previous Rx's Medication Instructions Recorded Budesonide-Formot 160-4.5 Mcg 2 puff INHALATION RT-BID #1 unit 12/01/17 [Symbicort 160-4.5 Mcg Inhaler] Aspirin 81 mg PO DAILY 90 Days #90 tab 01/11/23 Amoxic-Pot Clav 875-125Mg 1 tab PO Q12HR #20 tab 06/06/23 [Augmentin 875-125] Allergies Allergy/AdvReac Type Severity Reaction Status Date / Time dust AdvReac Dyspnea Uncoded 06/06/23 15:31 Review of Systems ROS Statement: Those systems with pertinent positive or pertinent negative responses have been documented in the HPI. ROS Other: All systems not noted in ROS Statement are negative. Past Medical History Past Medical History: Chest Pain / Angina, COPD, GERD/Reflux, Hearing Disorder / Deafness Additional Past Medical History / Comment(s): Chronic bronchitis, sinus tachycardia, chronic back pain, migraines, bilateral hearing aid use, bilateral tinnitis. History of Any Multi-Drug Resistant Organisms: None Reported Past Surgical History: Appendectomy, Heart Catheterization, Hysterectomy, Tubal Ligation Additional Past Surgical History / Comment(s): Loop recorder inserted and later removed. Past Anesthesia/Blood Transfusion Reactions: No Reported Reaction Past Psychological History: Anxiety, Depression Smoking Status: Former smoker Past Alcohol Use History: None Reported Past Drug Use History: None Reported - Past Family History Brother(s) Family Medical History: Coronary Artery Disease (CAD), Myocardial Infarction (MD) Additional Family Medical History / Comment(s): MD in his early 40s, had pacemaker. Sister(s) Family Medical History: Mitral Valve Prolapse (MVP) Father Additional Family Medical History / Comment(s): "Post Op MRSA infection- from complications of that." Mother Family Medical History: Cancer Additional Family Medical History / Comment(s): Lung cancer. General Exam - General Exam Comments Initial Comments: Visual Physical Exam Vital signs reviewed General: Well-appearing, nontoxic, no acute distress. Head: Normocephalic, atraumatic Eyes: PERRLA, EOMI ENT: Airway patent Chest: Nonlabored breathing Skin: No visual rash, normal skin tone Neuro: Alert and oriented 3 Musculoskeletal: No gross abnormalities Limitations: no limitations General appearance: alert, in no apparent distress Head exam: Present: atraumatic, normocephalic, normal inspection Eye exam: Present: normal appearance, PERRL, EOMI. Absent: scleral icterus, conjunctival injection, periorbital swelling ENT exam: Present: normal exam, mucous membranes moist Respiratory exam: Present: normal lung sounds bilaterally. Absent: respiratory distress, wheezes, rales, rhonchi, stridor Cardiovascular Exam: Present: regular rate, normal rhythm, normal heart sounds. Absent: systolic murmur, diastolic murmur, rubs, gallop, clicks GI/Abdominal exam: Present: soft, tenderness, normal bowel sounds. Absent: distended, guarding, rebound, rigid Course Vital Signs 06/06/23 09:42 Temperature 98.2 F Pulse Rate 105 H Respiratory 20 Rate Blood Pressure 166/90 O2 Sat by Pulse 97 Oximetry Medical Decision Making - Medical Decision Making I completed the quick note portion of this chart signed Abdiaziz Haines PA-C Was pt. sent in by a medical professional or institution (, [employer], CASH SHORTAGE INVESTIGATOR, urgent care, hospital, or retirement...) When possible be specific @ -No Did you speak to anyone other than the patient for history (EMS, parent, family, police, friend...)? What history was obtained from this source @ -No Did you review nursing and triage notes (agree or disagree)? Why? @ -I reviewed and agree with nursing and triage notes Were old charts reviewed (outside hosp., previous admission, EMS record, old EKG, old radiological studies, urgent care reports/EKG's, retirement records)? Report findings @ -No old charts were reviewed Differential Diagnosis (chest pain, altered mental status, abdominal pain women, abdominal pain men, vaginal bleeding, weakness, fever, dyspnea, syncope, headache, dizziness, GI bleed, back pain, seizure, CVA, palpatations, mental he alth, musculoskeletal)? @ -Differential Abdominal Pain Women: Appendicitis, Cholecystitis, diverticulosis, ischemic bowel, pancreatitis, hepatitis, UTI, gastroenteritis, AAA, incarcerated hernia, bowel obstruction, constipation, inflammatory bowel, hepatitis, peptic ulcer disease, splenic infarction, perforated viscus, vulvitis, ovarian torsion, PID, kidney stone, placenta abruption, this is not meant to be an all-inclusive list EKG interpreted by me (3pts min.). @ -As above X-rays interpreted by me (1pt min.). @ -None done CT interpreted by me (1pt min.). @ -CT abdomen/pelvis showing evidence of acute diverticulitis U/S interpreted by me (1pt. min.). @ -None done What testing was considered but not performed or refused? (CT, X-rays, U/S, labs)? Why? @ -None What meds were considered but not given or refused? Why? @ -None Did you discuss the management of the patient with other professionals (professionals i.e. [employer] Busch, CASH SHORTAGE INVESTIGATOR, lab, RT, psych nurse, social worker clinical, intensivist, teacher, benefits officer, shelter case manager)? Give summary @ -No Was smoking cessation discussed for >3mins.? @ -No Was critical care preformed (if so, how long)? @ -No Were there social determinants of health that impacted care today? How? (Homelessness, low income, unemployed, alcoholism, drug addiction, transportatio n, low edu. Level, literacy, decrease access to med. care, usp, rehab)? @ -No Was there de-escalation of care discussed even if they declined (Discuss DNR or withdrawal of care, Hospice)? DNR status @ -No What co-morbidities impacted this encounter? (DM, HTN, Smoking, COPD, CAD, Cancer, CVA, ARF, Chemo, Hep., AIDS, mental health diagnosis, sleep apnea, morbid obesity)? @ -None Was patient admitted / discharged? Hospital course, mention meds given and route, prescriptions, significant lab abnormalities, going to OR and other pertinent info. @ -Charge patient has evidence of acute diverticulitis she is tolerating oral intake pain is improved. Patient is started on oral antibiotics clear liquid diet with follow-up with surgeon return for any discussed. Undiagnosed new problem with uncertain prognosis? @ -No Drug Therapy requiring intensive monitoring for toxicity (Heparin, Nitro, Insulin, Cardizem)? @ -No Were any procedures done? @ -No Diagnosis/symptom? @ -Acute diverticulitis Acute, or Chronic, or Acute on Chronic? @ -Acute Uncomplicated (without systemic symptoms) or Complicated (systemic symptoms)? @ -Complicated Side effects of treatment? @ -No Exacerbation, Progression, or Severe Exacerbation? @ -No Poses a threat to life or bodily function? How? (Chest pain, USA, MD, pneumonia, PE, COPD, DKA, ARF, appy, cholecystitis, CVA, Diverticulitis, Homicidal, Suicidal, threat to staff... and all critical care pts) @ -Yes diverticulitis could lead to perforated diverticulum and sepsis. - Lab Data Result diagrams: 06/06/23 10:15 06/06/23 10:15 Lab Results 06/06/23 06/06/23 06/06/23 Range/Units 10:15 10:15 10:15 WBC 14.4 H (3.8-10.6) k/uL RBC 4.60 (3.80-5.40) m/uL Hgb 14.0 (11.4-16.0) gm/dL Hct 45.2 (34.0-46.0) % MCV 98.2 (80.0-100.0) fL MCH 30.5 (25.0-35.0) pg MCHC 31.1 (31.0-37.0) g/dL RDW 14.2 (11.5-15.5) % Plt Count 401 (150-450) k/uL MPV 7.6 Neutrophils % 83 % Lymphocytes % 8 % Monocytes % 6 % Eosinophils % 1 % Basophils % 0 % Neutrophils # 11.9 H (1.3-7.7) k/uL Lymphocytes # 1.2 (1.0-4.8) k/uL Monocytes # 0.9 (0-1.0) k/uL Eosinophils # 0.2 (0-0.7) k/uL Basophils # 0.1 (0-0.2) k/uL Sodium 129 L (137-145) mmol/L Potassium 4.3 (3.5-5.1) mmol/L Chloride 97 L (98-107) mmol/L Carbon Dioxide 25 (22-30) mmol/L Anion Gap 7 mmol/L BUN 7 (7-17) mg/dL Creatinine 0.41 L (0.52-1.04) mg/dL Est GFR (CKD-EPI)AfAm >90 (>60 ml/min/1.73 sqM) Est GFR (CKD-EPI)NonAf >90 (>60 ml/min/1.73 sqM) Glucose 117 H (74-99) mg/dL Lactic Ac Sepsis Rflx Plasma Lactic Acid Dio 2.1 H* (0.7-2.0) mmol/L Calcium 9.4 (8.4-10.2) mg/dL Total Bilirubin 1.0 (0.2-1.3) mg/dL AST 27 (14-36) U/L ALT 25 (4-34) U/L Alkaline Phosphatase 124 (38-126) U/L Total Protein 6.7 (6.3-8.2) g/dL Albumin 4.1 (3.5-5.0) g/dL Lipase 25 (23-300) U/L Urine Color Urine Appearance (Clear) Urine pH (5.0-8.0) Ur Specific Gomer (1.001-1.035) Urine Protein (Negative) Urine Glucose (UA) (Negative) Urine Ketones (Negative) Urine Blood (Negative) Urine Nitrite (Negative) Urine Bilirubin (Negative) Urine Urobilinogen (<2.0) mg/dL Ur Leukocyte Esterase (Negative) 06/06/23 06/06/23 06/06/23 Range/Units 10:25 11:29 14:20 WBC (3.8-10.6) k/uL RBC (3.80-5.40) m/uL Hgb (11.4-16.0) gm/dL Hct (34.0-46.0) % MCV (80.0-100.0) fL MCH (25.0-35.0) pg MCHC (31.0-37.0) g/dL RDW (11.5-15.5) % Plt Count (150-450) k/uL MPV Neutrophils % % Lymphocytes % % Monocytes % % Eosinophils % % Basophils % % Neutrophils # (1.3-7.7) k/uL Lymphocytes # (1.0-4.8) k/uL Monocytes # (0-1.0) k/uL Eosinophils # (0-0.7) k/uL Basophils # (0-0.2) k/uL Sodium (137-145) mmol/L Potassium (3.5-5.1) mmol/L Chloride (98-107) mmol/L Carbon Dioxide (22-30) mmol/L Anion Gap mmol/L BUN (7-17) mg/dL Creatinine (0.52-1.04) mg/dL Est GFR (CKD-EPI)AfAm (>60 ml/min/1.73 sqM) Est GFR (CKD-EPI)NonAf (>60 ml/min/1.73 sqM) Glucose (74-99) mg/dL Lactic Ac Sepsis Rflx Y Plasma Lactic Acid Dio 1.5 (0.7-2.0) mmol/L Calcium (8.4-10.2) mg/dL Total Bilirubin (0.2-1.3) mg/dL AST (14-36) U/L ALT (4-34) U/L Alkaline Phosphatase (38-126) U/L Total Protein (6.3-8.2) g/dL Albumin (3.5-5.0) g/dL Lipase (23-300) U/L Urine Color Colorless Urine Appearance Clear (Clear) Urine pH 6.5 (5.0-8.0) Ur Specific Gomer 1.001 (1.001-1.035) Urine Protein Negative (Negative) Urine Glucose (UA) Negative (Negative) Urine Ketones Negative (Negative) Urine Blood Negative (Negative) Urine Nitrite Negative (Negative) Urine Bilirubin Negative (Negative) Urine Urobilinogen <2.0 (<2.0) mg/dL Ur Leukocyte Esterase Negative (Negative) Disposition Clinical Impression: Diverticulitis Disposition: HOME SELF-CARE Condition: Stable Instructions (If sedation given, give patient instructions): Diverticulitis (ED), Diverticulitis Diet (ED) Additional Instructions: Please return to the Emergency Department if symptoms worsen or any other concerns. Prescriptions: Amoxic-Pot Clav 875-125Mg [Augmentin 875-125] 1 tab PO Q12HR #20 tab Is patient prescribed a controlled substance at d/c from ED?: No Referrals: Clemente Gongora MD [Primary Care Provider] - 1-2 days Time of Disposition: 15:55
[2023-06-06 10:28] VITALS: BP 166/90; PULSE 105; RESP 20; TEMP 98.2
[2023-06-06 10:33] LABS: Basophils # (A) 0.1 k/uL (0-0.2); Basophils % (A) 0 %; Eosinophils # (A) 0.2 k/uL (0-0.7); Eosinophils % (A) 1 %; HCT 45.2 % (34.0-46.0); Lymphocytes # (A) 1.2 k/uL (1.0-4.8); Lymphocytes % (A) 8 %; MCH 30.5 pg (25.0-35.0); MCHC 31.1 g/dL (31.0-37.0); MCV 98.2 fL (80.0-100.0); Mean Platelet Volume 7.6; Monocytes # (A) 0.9 k/uL (0-1.0); Monocytes % (A) 6 %; Neutrophils # (A) 11.9 k/uL (1.3-7.7); Neutrophils % (A) 83 %; Platelet Count 401 k/uL (150-450); RDW 14.2 % (11.5-15.5); WBC 14.4 k/uL (3.8-10.6)
[2023-06-06 10:46] LABS: Appearance,Urine Clear (Clear); Bilirubin,Urine Negative (Negative); Blood,Urine Negative (Negative); Color,Urine Colorless; Glucose,Urine (UA) Negative (Negative); Ketones,Urine Negative (Negative); Leukocyte Esterase,Urine Negative (Negative); Nitrite,Urine Negative (Negative); PH, Urine 6.5 (5.0-8.0); Protein,Urine Negative (Negative); Specific Gravity,Urine 1.001 (1.001-1.035); Urobilinogen,Urine <2.0 mg/dL (<2.0)
[2023-06-06 10:51] LABS: ALT 25 U/L (4-34); AST 27 U/L (14-36); African American GFR (CKD) >90 (>60 ml/min/1.73 sqM); Albumin 4.1 g/dL (3.5-5.0); Alkaline Phosphatase 124 U/L (38-126); Anion Gap 7 mmol/L; Blood Urea Nitrogen 7 mg/dL (7-17); Calcium 9.4 mg/dL (8.4-10.2); Carbon Dioxide 25 mmol/L (22-30); Chloride 97 mmol/L (98-107); Glucose 117 mg/dL (74-99); Lipase 25 U/L (23-300); Non-African American GFR(CKD) >90 (>60 ml/min/1.73 sqM); Potassium 4.3 mmol/L (3.5-5.1); Sodium 129 mmol/L (137-145); Total Protein 6.7 g/dL (6.3-8.2)
[2023-06-06] MEDS: SODIUM CHLORIDE 0.9% 1,000 ML IV ONE (14:23)
[2023-06-06] MEDS: HYDROmorphone 0.5 MG/0.5 ML SYRINGE IVP STA ×2 (14:23→16:11)
[2023-06-06] MEDS: ONDANSETRON 4 MG/2 ML VIAL IVP STA (14:24)
--- NOTE | 2023-06-06 15:44 | CT ---
EXAMINATION TYPE: CT abdomen pelvis w con DATE OF EXAM: 06/06/2023 COMPARISON: None INDICATION: LOWER ABDOMINAL PAIN, GAS, CONSTIPATION X4 DAYS, RECENT COLONOSCOPY X1 WEEK AGO DLP: 643.7 mGycm, Automated exposure control for dose reduction was used. CONTRAST: 100 mL of Isovue 300. Study performed with Oral Contrast TECHNIQUE: Axial images were obtained from above the diaphragm to the pubic rami in the axial plane a t 5 mm thick sections. Reconstructed images are reviewed on the computer in the coronal plane. FINDINGS: Limited CT sections are obtained the lung bases. The lung bases are clear. CT ABDOMEN: Liver: Normal Spleen: Normal Pancreas: Normal Adrenal glands: The adrenal glands are normal. Gallbladder: Normal Kidneys: No masses are evident. No hydronephrosis is present. No cysts are present. Delayed images were obtained through the kidneys, which remain unremarkable. Aorta: Vascular calcification is within the aorta. 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 Both iliac vessels are patent. Finding was present previously and unchan ged. Inferior vena cava: Normal. CT PELVIS: There is thickening of sigmoid bowel wall. Some mild adjacent inflammatory changes are present. Colit is is favored. Mild diverticulitis could be considered. There is mild fecal retention present. Free a ir is evident. No abscess formation is identified. Small bowel loops are nondilated. This study is wi thout oral contrast limiting bowel evaluation. Appendix: Not identified. No dilated tubular structure or inflammatory changes. Urinary bladder: Normal. Genitourinary structures: Uterus and ovaries are not identified. Osseous structures: No suspicious lytic or sclerotic lesions. IMPRESSION: 1. Findings suggestive for mild colitis of the sigmoid colon. Mild diverticulitis could be considere d. 2. Mild fecal retention.
[2023-06-06] MEDS: ACET/COD 300 MG/30 MG STARTER PACK 6 TAB BTL PO STA (16:10)
[2023-06-06] MEDS: KETOROLAC 15 MG/ML 1 ML VIAL IVP STA (16:11)
== END 2023-06-06 16:28 | disposition home or self-care (01) ==
LOC: EC 09:11
DX: K57.92 Diverticulitis of intestine, part unspecified, without perforation or abscess without bleeding (principal); Z87.891 Personal history of nicotine dependence; Z88.8 Allergy status to other drugs, medicaments and biological substances
CPT/HCPCS: 36415; 80053; 83605; 83690; 85025; 81003; 74177; 99284; 96374; 96375 ×2; 96376; 96361; J2405; J1885; J1170; Q9967

== ENCOUNTER 2023-06-08 11:44 | Inpatient (IN) | payer OTHER ==
--- NOTE | 2023-06-08 12:19 | ED ---
Abdominal Pain HPI - General Chief Complaint: Abdominal Pain Stated Complaint: Abd pain Time Seen by Provider: 06/08/23 12:18 Source: patient, RN notes reviewed Mode of arrival: ambulatory Limitations: no limitations - History of Present Illness Initial Comments: This is a 63-year-old female who presents to the emergency department for abdominal pain. Patient was evaluated here for this 2 days ago and diagnosed with diverticulitis. She was started on Augmentin, but states that she continues to have increasing pain. She has also since started to throw up, most recently this morning. She has not had a bowel movement in about a week despite trying multiple treatments. She is still passing gas. Abdominal pain is described as diffuse. MD Complaint: abdominal pain - Related Data Home Medications Medication Instructions Recorded Confirmed Ipratropium-Albuterol Nebulize 3 ml INHALATION RT-TID PRN 11/03/22 06/08/23 [Duoneb 0.5 mg-3 mg/3 ml Soln] amLODIPine [Norvasc] 5 mg PO DAILY 12/26/22 06/08/23 lamoTRIgine [LaMICtal] 100 mg PO BID 12/26/22 06/08/23 ALPRAZolam [Xanax] 0.5 mg PO BID 02/08/23 06/08/23 Montelukast [Singulair] 10 mg PO DAILY 05/11/23 06/08/23 Fexofenadine HCl [Valeri Allergy] 180 mg PO DAILY 06/06/23 06/08/23 HYDROcodone/APAP 7.5-325MG [Rosanky 1 tab PO BID PRN 06/06/23 06/08/23 7.5-325] Tiotropium 2.5 Mcg/Puff [Spiriva 2 puff INHALATION RT-BID 06/06/23 06/08/23 Respimat 2.5 Mcg] Previous Rx's Medication Instructions Recorded Budesonide-Formot 160-4.5 Mcg 2 puff INHALATION RT-BID #1 unit 12/01/17 [Symbicort 160-4.5 Mcg Inhaler] Aspirin 81 mg PO DAILY 90 Days #90 tab 01/11/23 Amoxic-Pot Clav 875-125Mg 1 tab PO Q12HR #20 tab 06/06/23 [Augmentin 875-125] Allergies Allergy/AdvReac Type Severity Reaction Status Date / Time dust AdvReac Dyspnea Uncoded 06/08/23 13:48 Review of Systems ROS Statement: Those systems with pertinent positive or pertinent negative responses have been documented in the HPI. ROS Other: All systems not noted in ROS Statement are negative. Past Medical History Past Medical History: Chest Pain / Angina, COPD, GERD/Reflux, Hearing Disorder / Deafness Additional Past Medical History / Comment(s): Chronic bronchitis, sinus tachycardia, chronic back pain, migraines, bilateral hearing aid use, bilateral tinnitis. History of Any Multi-Drug Resistant Organisms: None Reported Past Surgical History: Appendectomy, Heart Catheterization, Hysterectomy, Tubal Ligation Additional Past Surgical History / Comment(s): Loop recorder inserted and later removed. Past Anesthesia/Blood Transfusion Reactions: No Reported Reaction Past Psychological History: Anxiety, Depression Smoking Status: Former smoker Past Alcohol Use History: None Reported Past Drug Use History: None Reported - Past Family History Brother(s) Family Medical History: Coronary Artery Disease (CAD), Myocardial Infarction ([place]) Additional Family Medical History / Comment(s): [place] in his early 40s, had pacemaker. Sister(s) Family Medical History: Mitral Valve Prolapse (MVP) Father Additional Family Medical History / Comment(s): "Post Op MRSA infection- from complications of that." Mother Family Medical History: Cancer Additional Family Medical History / Comment(s): Lung cancer. General Exam Limitations: no limitations General appearance: alert, in no apparent distress Head exam: Present: atraumatic, normocephalic, normal inspection Respiratory exam: Present: normal lung sounds bilaterally. Absent: respiratory distress, wheezes, rales, rhonchi, stridor Cardiovascular Exam: Present: regular rate, normal rhythm, normal heart sounds. Absent: systolic murmur, diastolic murmur, rubs, gallop, clicks GI/Abdominal exam: Present: soft, tenderness (diffuse), normal bowel sounds. Absent: distended Neurological exam: Present: alert, oriented X3, CN II-XII intact Psychiatric exam: Present: normal affect, normal mood Skin exam: Present: warm, dry, intact, normal color. Absent: rash Course Vital Signs 06/08/23 06/08/23 06/08/23 11:54 16:14 18:36 Temperature 98.0 F 98.2 F Pulse Rate 112 H 101 H 89 Respiratory 18 18 18 Rate Blood Pressure 126/83 133/79 115/74 O2 Sat by Pulse 96 95 94 L Oximetry 06/08/23 19:57 Temperature 98.2 F Pulse Rate 89 Respiratory 18 Rate Blood Pressure 140/87 O2 Sat by Pulse 97 Oximetry Medical Decision Making - Medical Decision Making This is a 63 year old female who presents to the emergency department for abdominal pain. Was pt. sent in by a medical professional or institution? @ -No Did you speak to anyone other than the patient for history? @ -No Did you review nursing and triage notes? @ -Yes, and I agree, it is accurate with regards to the patient's symptoms. Were old charts reviewed? @ -CT scan of the abdomen and pelvis from 06/06/2023 demonstrating mild colitis versus diverticulitis of the sigmoid colon. Differential Diagnosis? @ -Differential Abdominal Pain Women: Appendicitis, Cholecystitis, diverticulosis, ischemic bowel, pancreatitis, hepatitis, UTI, gastroenteritis, AAA, incarcerated hernia, bowel obstruction, constipation, inflammatory bowel, hepatitis, peptic ulcer disease, splenic infarction, perforated viscus, vulvitis, ovarian torsion, PID, kidney stone, placenta abruption, this is not meant to be an all-inclusive list EKG interpreted by me (3pts min.)? @ -Pending at the time of admission. X-rays interpreted by me (1pt min.)? @ -Not obtained CT interpreted by me (1pt min.)? @ -CT scan of the abdomen and pelvis obtained. My interpretation identifies thickening of the sigmoid colon. U/S interpreted by me (1pt. min.)? @ -Not obtained What testing was considered but not performed? (CT, X-rays, U/S, labs)? Why? @ -None What meds were considered but not given? Why? @ -None Did you discuss the management of the patient with other professionals? @ -Yes, Dr. Gongora, who accepts the patient for admission. Did you reconcile home meds? @ -Yes Was smoking cessation discussed for >3mins.? @ -I discussed smoking cessation for greater than 3 minutes. The risk of smoking were discussed with the patient including but not limited to risks of cancer, stroke, coronary artery disease and COPD. Also discussed with patient were multiple methods of quitting smoking. Lastly we discussed the financial cost of smoking. Was critical care preformed (if so, how long)? @ -No Were there social determinants of health that impacted care today? How? (Homelessness, low income, unemployed, alcoholism, drug addiction, transportation, low edu. Level, literacy, decrease access to med. care, assisted, rehab)? @ -No Was there de-escalation of care discussed even if they declined? (Discuss DNR or withdrawal of care, Hospice)? @ -No What co-morbidities impacted this encounter? (DM, HTN, Smoking, COPD, CAD, Cancer, CVA, Hep., AIDS, mental health diagnosis, sleep apnea, morbid obesity)? @ -GERD Was patient admitted / discharged? @ -Admitted. Lab work demonstrates leukocytosis with a white blood cell count of 16. This is increased when compared with 2 days ago when it was 14.4. She also has hyponatremia with a sodium of 130. Lab work was very otherwise fairly unremarkable. Repeat CT scan of the abdomen and pelvis obtained. This demonstrated acute diverticulitis of the sigmoid colon with the development of a 3.5 cm oval vague hypodensity in the anterior wall of the sigmoid colon without a discernible wall which could represent early abscess. There is no evidence of bowel obstruction, however there is a moderate amount of stool within the colon proximal to the sigmoid colon. Patient admitted to medicine for diverticulitis with failure of outpatient management and possible abscess development. Blood cultures were obtained. Patient started on IV Zosyn and maintenance fluids. Undiagnosed new problem with uncertain prognosis? @ -None Drug Therapy requiring intensive monitoring for toxicity (Heparin, Nitro, Insulin, Cardizem)? @ -None Were any procedures done? @ -None Diagnosis/symptom? @ -Diverticulitis, failure of outpatient treatment Acute, or Chronic, or Acute on Chronic? @ -Acute Uncomplicated (without systemic symptoms) or Complicated (systemic symptoms)? @ -Complicated Side effects of treatment? @ -None Exacerbation, Progression, or Severe Exacerbation] @ -Not applicable Poses a threat to life or bodily function? @ -Yes This case was discussed in detail with the attending ED physician, Dr. Cosme. Presentation, findings, and treatment plan discussed in detail as well. - Lab Data Result diagrams: 06/08/23 12:39 06/08/23 12:39 Lab Results 06/08/23 06/08/23 06/08/23 Range/Units 12:39 12:39 12:39 WBC 16.0 H (3.8-10.6) k/uL RBC 4.76 (3.80-5.40) m/uL Hgb 15.1 (11.4-16.0) gm/dL Hct 46.3 H (34.0-46.0) % MCV 97.3 (80.0-100.0) fL MCH 31.7 (25.0-35.0) pg MCHC 32.6 (31.0-37.0) g/dL RDW 14.1 (11.5-15.5) % Plt Count 457 H (150-450) k/uL MPV 8.5 Neutrophils % 85 % Lymphocytes % 6 % Monocytes % 7 % Eosinophils % 1 % Basophils % 0 % Neutrophils # 13.6 H (1.3-7.7) k/uL Lymphocytes # 1.0 (1.0-4.8) k/uL Monocytes # 1.1 H (0-1.0) k/uL Eosinophils # 0.2 (0-0.7) k/uL Basophils # 0.1 (0-0.2) k/uL Sodium 130 L (137-145) mmol/L Potassium 4.7 (3.5-5.1) mmol/L Chloride 92 L (98-107) mmol/L Carbon Dioxide 26 (22-30) mmol/L Anion Gap 12 mmol/L BUN 6 L (7-17) mg/dL Creatinine 0.45 L (0.52-1.04) mg/dL Est GFR (CKD-EPI)AfAm >90 (>60 ml/min/1.73 sqM) Est GFR (CKD-EPI)NonAf >90 (>60 ml/min/1.73 sqM) Glucose 117 H (74-99) mg/dL Plasma Lactic Acid Dio 0.9 (0.7-2.0) mmol/L Calcium 9.4 (8.4-10.2) mg/dL Magnesium 1.9 (1.6-2.3) mg/dL Total Bilirubin 0.9 (0.2-1.3) mg/dL AST 24 (14-36) U/L ALT 24 (4-34) U/L Alkaline Phosphatase 144 H (38-126) U/L Total Protein 7.5 (6.3-8.2) g/dL Albumin 4.4 (3.5-5.0) g/dL Amylase 50 (30-110) U/L Lipase 18 L (23-300) U/L - Radiology Data Radiology results: report reviewed, image reviewed Disposition Clinical Impression: Diverticulitis, Failure of outpatient treatment, Nicotine dependence Disposition: ADMITTED IP TO THIS [facility] Time of Disposition: 15:51
[2023-06-08] MEDS: MORPHINE SULFATE 2 MG/ML SYRINGE IVP STA (12:50)
[2023-06-08] MEDS: KETOROLAC 15 MG/ML 1 ML VIAL IVP STA ×2 (12:53→16:06)
[2023-06-08] MEDS: ONDANSETRON 4 MG/2 ML VIAL IVP STA (12:53)
[2023-06-08] MEDS: SODIUM CHLORIDE 0.9% 1,000 ML IV STA (12:55)
[2023-06-08 13:09] LABS: Basophils # (A) 0.1 k/uL (0-0.2); Basophils % (A) 0 %; Eosinophils # (A) 0.2 k/uL (0-0.7); Eosinophils % (A) 1 %; HCT 46.3 % (34.0-46.0); HGB 15.1 gm/dL (11.4-16.0); Lymphocytes % (A) 6 %; MCH 31.7 pg (25.0-35.0); MCHC 32.6 g/dL (31.0-37.0); MCV 97.3 fL (80.0-100.0); Mean Platelet Volume 8.5; Monocytes # (A) 1.1 k/uL (0-1.0); Monocytes % (A) 7 %; Neutrophils # (A) 13.6 k/uL (1.3-7.7); Neutrophils % (A) 85 %; Platelet Count 457 k/uL (150-450); RBC 4.76 m/uL (3.80-5.40); RDW 14.1 % (11.5-15.5)
[2023-06-08 13:14] LABS: ALT 24 U/L (4-34); AST 24 U/L (14-36); African American GFR (CKD) >90 (>60 ml/min/1.73 sqM); Albumin 4.4 g/dL (3.5-5.0); Alkaline Phosphatase 144 U/L (38-126); Amylase 50 U/L (30-110); Anion Gap 12 mmol/L; Blood Urea Nitrogen 6 mg/dL (7-17); Calcium 9.4 mg/dL (8.4-10.2); Carbon Dioxide 26 mmol/L (22-30); Chloride 92 mmol/L (98-107); Glucose 117 mg/dL (74-99); Lipase 18 U/L (23-300); Magnesium 1.9 mg/dL (1.6-2.3); Non-African American GFR(CKD) >90 (>60 ml/min/1.73 sqM); Potassium 4.7 mmol/L (3.5-5.1); Sodium 130 mmol/L (137-145); Total Bilirubin 0.9 mg/dL (0.2-1.3); Total Protein 7.5 g/dL (6.3-8.2)
[2023-06-08] MEDS: HYDROmorphone 1 MG/ML 1 ML SYRINGE IVP STA ×2 (14:16→16:07)
[2023-06-08] MEDS: PIPERACILLIN-TAZOBACTAM 3.375 GM in SODIUM CHLORIDE 0.9% 100 ML IVPB STA (14:21)
--- NOTE | 2023-06-08 15:45 | CT ---
EXAMINATION TYPE: CT abdomen pelvis w con DATE OF EXAM: 06/08/2023 COMPARISON: 06/06/2023 HISTORY: generalized abd pain CT DLP: 697.5 mGycm Automated exposure control for dose reduction was used. TECHNIQUE: Helical acquisition of images was performed from the lung bases through the pelvis. CONTRAST: Performed without Oral Contrast and with IV Contrast, patient injected with 100ml mL of Isovue 300. FINDINGS: The lung bases are clear. The gallbladder is normal without distention, wall thickening, pericholecystic fluid or gallstones. T here is no biliary ductal dilatation. There is no focal mass or organomegaly involving the liver, pancreas, spleen or adrenal glands. There is no solid renal mass or hydronephrosis and there is homogeneous contrast enhancement of the r enal parenchyma. The caliber the abdominal aorta is normal is no retroperitoneal adenopathy or hemorr rohan. There is thickening of the sigmoid colon wall with stranding in the pericolic fat similar in degree c ompared to the prior study. There is development of a 3.5 cm oval vague hypodensity in the anterior w all of the sigmoid colon without a discernible wall which could represent early abscess. The findings are consistent with acute diverticulitis of the sigmoid colon. There is no bowel obstruction but the re is a moderate amount of stool within the colon proximal to the sigmoid colon. There is no free intraperitoneal air or fluid. No pelvic mass, free fluid, abscess or adenopathy. There is surgical absence of the uterus. The osseous structures and soft tissues are intact. IMPRESSION: Findings consistent with acute diverticulitis of the sigmoid colon as described above.
[2023-06-08] MEDS ORDERED: NALOXONE 0.4 MG/ML 1 ML VIAL IV PRN (15:51)
[2023-06-08] MEDS: SODIUM CHLORIDE 0.9% 1,000 ML IV SCH (16:11)
[2023-06-08] MEDS: ACETAMINOPHEN IV (For NPO) 1,000 MG in EMPTY BAG 1 BAG IVPB STA (16:12)
[2023-06-08 17:47] LABS: Appearance,Urine Clear (Clear); Bilirubin,Urine Negative (Negative); Blood,Urine Trace (Negative); Color,Urine Colorless; Glucose,Urine (UA) Negative (Negative); Ketones,Urine 1+ (Negative); Leukocyte Esterase,Urine Negative (Negative); Nitrite,Urine Negative (Negative); PH, Urine 6.5 (5.0-8.0); Protein,Urine Negative (Negative); RBC,Urine 2 /hpf (0-5); Squamous Epithelial Cell,Urine 4 /hpf (0-4); Urobilinogen,Urine <2.0 mg/dL (<2.0); WBC,Urine 1 /hpf (0-5)
[2023-06-08 17:48] LABS: Specific Gravity,Urine >1.050 (1.001-1.035)
[2023-06-08] MEDS: KETOROLAC 15 MG/ML 1 ML VIAL IVP PRN (18:57)
[2023-06-08] MEDS: ONDANSETRON 4 MG/2 ML VIAL IVP PRN (18:57)
[2023-06-08] MEDS: HYDROmorphone 0.5 MG/0.5 ML SYRINGE IVP PRN (18:57)
[2023-06-08] MEDS: SYMBICORT 160-4.5 MCG INHALER INHALATION SCH (20:01)
[2023-06-08] MEDS: IPRATROPIUM 0.5 MG/2.5 ML NEBU INHALATION SCH (20:01)
[2023-06-08] MEDS: ALPRAZolam 0.5 MG TAB PO SCH (22:11)
[2023-06-08] MEDS: lamoTRIgine 100 MG TAB PO SCH (22:11)
[2023-06-08] MEDS: HYDROmorphone 1 MG/ML 1 ML SYRINGE IVP PRN (22:11)
[2023-06-08] MEDS: PIPERACILLIN-TAZOBACTAM 3.375 GM in SODIUM CHLORIDE 0.9% 100 ML IVPB SCH (23:58)
[2023-06-09] MEDS: PANTOPRAZOLE 40 MG/10 ML VIAL IV SCH (08:26)
[2023-06-09] MEDS: LORATADINE 10 MG TAB PO SCH (08:27)
[2023-06-09] MEDS: MONTELUKAST 10 MG TAB PO SCH (08:27)
[2023-06-09] MEDS: ASPIRIN 81 MG PO SCH (08:27)
[2023-06-09] MEDS: amLODIPine 5 MG TAB PO SCH (08:27)
[2023-06-09] MEDS: SODIUM CHLORIDE 0.9% 1,000 ML IV ONE (12:09)
--- NOTE | 2023-06-09 16:54 | P.GSCN ---
History of Present Illness Consult date: 06/09/23 History of present illness: CHIEF COMPLAINT: Abdominal pain HISTORY OF PRESENT ILLNESS: This is a 63-year-old female who presented with left lower quadrant abdominal pain 6 days ago. 2 days ago she presented to the ER and was diagnosed with diverticulosis was given oral antibiotics and discharged home from the ER. Patient reports that her symptoms did not improve with the antibiotics therefore she came back into the ER. CT scan of abdomen pelvis had reported acute diverticulitis and developing abscess. Patient was started on IV antibiotics. She reports having a prior history of diverticulitis about a year ago. Her colonoscopy in May 2023 was a poor colonoscopy the colon was tortuous. There is also evidence of hemorrhoids. Patient past surgical history does include appendectomy and hysterectomy. Patient does have severe pain in that left lower quadrant. She has been mildly tachycardic. PAST MEDICAL HISTORY: Angina, COPD, GERD/Reflux, Hearing Disorder / Deafness, Chronic bronchitis, sinus tachycardia, chronic back pain, migraines, bilateral hearing aid use, bilateral tinnitis. PAST SURGICAL HISTORY: Appendectomy, Heart Catheterization, Hysterectomy, Tubal Ligation MEDICATIONS: See below ALLERGIES: See below SOCIAL HISTORY: No illicit drug use. REVIEW OF SYSTEMS: CONSTITUTIONAL: Denies fever or chills. HEENT: Denies blurred vision, vision changes, or eye pain. Denies hemoptysis CARDIOVASCULAR: Denies chest pain or pressure. RESPIRATORY: No shortness of breath. GASTROINTESTINAL: See HPI for pertinent findings HEMATOLOGIC: Denies bleeding disorders. GENITOURINARY: Denies any blood in urine or increased urinary frequency. SKIN: Denies pruitis. Denies rash. PHYSICAL EXAM: VITAL SIGNS: Reviewed GENERAL: Well-developed in no acute distress. ABDOMEN: Soft. Nondistended. Tenderness palpation to the left lower quadrant NEUROLOGIC: Alert and oriented. Cranial nerves II through XII grossly intact. LABORATORY DATA: WBC 16 Hgb 15 platelets 457 Sodium is 130 potassium 4.7 creatinine 0.45 Lactic acid 0.9 AST 24 ALT 24 alk phos 144 lipase 18 IMAGING: CT scan abdomen pelvis reports findings consistent with acute diverticulitis of the sigmoid colon with development of a 3.5 cm vague hypodensity in the anterior wall of the sigmoid colon without a discernible wall which could represent early abscess. ASSESSMENT: 1. Acute sigmoid diverticulitis was possible early abscess noted on CT PLAN: -Continue IV antibiotics. Agree with ID consult. -Continue pain management. IV pain medications adjusted. Added Dilaudid 0.5 mg every 2 hours as needed for pain -Repeat labs in a.m. -Continue clear liquid diet for now. Discussed with patient to go slow with the liquids. -Recommend repeat CT scan abdomen pelvis with oral and IV contrast on Monday -1 L fluid bolus ordered for tachycardia Thank you for this consultation Physical exam findings and lab results have all been reviewed with Dr. Joyner Physician Mitering Machine Operator note has been reviewed by physician. Signing provider agrees with the documented findings, assessment, and plan of care. Past Medical History Past Medical History: Chest Pain / Angina, COPD, GERD/Reflux, Hearing Disorder / Deafness Additional Past Medical History / Comment(s): Chronic bronchitis, sinus tachycardia, chronic back pain, migraines, bilateral hearing aid use, bilateral tinnitis. History of Any Multi-Drug Resistant Organisms: None Reported Past Surgical History: Appendectomy, Heart Catheterization, Hysterectomy, Tubal Ligation Additional Past Surgical History / Comment(s): Loop recorder inserted and later removed. Past Anesthesia/Blood Transfusion Reactions: No Reported Reaction Past Psychological History: Anxiety, Depression Smoking Status: Former smoker Past Alcohol Use History: None Reported Past Drug Use History: None Reported - Past Family History Brother(s) Family Medical History: Coronary Artery Disease (CAD), Myocardial Infarction ([place]) Additional Family Medical History / Comment(s): [place] in his early 40s, had p acemaker. Sister(s) Family Medical History: Mitral Valve Prolapse (MVP) Father Additional Family Medical History / Comment(s): "Post Op MRSA infection- from complications of that." Mother Family Medical History: Cancer Additional Family Medical History / Comment(s): Lung cancer. Medications and Allergies Home Medications Medication Instructions Recorded Confirmed Type Budesonide-Formot 160-4.5 Mcg 2 puff INHALATION RT-BID #1 unit 12/01/17 06/08/23 Rx [Symbicort 160-4.5 Mcg Inhaler] Ipratropium-Albuterol Nebulize 3 ml INHALATION RT-TID PRN 11/03/22 06/08/23 History [Duoneb 0.5 mg-3 mg/3 ml Soln] amLODIPine [Norvasc] 5 mg PO DAILY 12/26/22 06/08/23 History lamoTRIgine [LaMICtal] 100 mg PO BID 12/26/22 06/08/23 History Aspirin 81 mg PO DAILY 90 Days #90 tab 01/11/23 06/08/23 Rx ALPRAZolam [Xanax] 0.5 mg PO BID 02/08/23 06/08/23 History Montelukast [Singulair] 10 mg PO DAILY 05/11/23 06/08/23 History Amoxic-Pot Clav 875-125Mg 1 tab PO Q12HR #20 tab 06/06/23 06/08/23 Rx [Augmentin 875-125] Fexofenadine HCl [Valeri Allergy] 180 mg PO DAILY 06/06/23 06/08/23 History HYDROcodone/APAP 7.5-325MG [Amalia 1 tab PO BID PRN 06/06/23 06/08/23 History 7.5-325] Tiotropium 2.5 Mcg/Puff [Spiriva 2 puff INHALATION RT-BID 06/06/23 06/08/23 History Respimat 2.5 Mcg] Allergies Allergy/AdvReac Type Severity Reaction Status Date / Time dust AdvReac Dyspnea Uncoded 06/08/23 13:48 Surgical - Exam Vital Signs Temp Pulse Resp BP Pulse Ox 98.0 F 112 H 18 126/83 96 06/08/23 11:54 06/08/23 11:54 06/08/23 11:54 06/08/23 11:54 06/08/23 11:54 Results - Labs 06/08/23 12:39 06/08/23 12:39 Abnormal Lab Results - Last 24 Hours (Table) 06/08/23 06/08/23 06/08/23 Range/Units 12:39 12:39 17:21 WBC 16.0 H (3.8-10.6) k/uL Hct 46.3 H (34.0-46.0) % Plt Count 457 H (150-450) k/uL Neutrophils # 13.6 H (1.3-7.7) k/uL Monocytes # 1.1 H (0-1.0) k/uL Sodium 130 L (137-145) mmol/L Chloride 92 L (98-107) mmol/L BUN 6 L (7-17) mg/dL Creatinine 0.45 L (0.52-1.04) mg/dL Glucose 117 H (74-99) mg/dL Alkaline Phosphatase 144 H (38-126) U/L Lipase 18 L (23-300) U/L Ur Specific [place] >1.050 H (1.001-1.035) Urine Ketones 1+ H (Negative) Urine Blood Trace H (Negative) Diabetes panel 06/08/23 Range/Units 12:39 Sodium 130 L (137-145) mmol/L Potassium 4.7 (3.5-5.1) mmol/L Chloride 92 L (98-107) mmol/L Carbon Dioxide 26 (22-30) mmol/L BUN 6 L (7-17) mg/dL Creatinine 0.45 L (0.52-1.04) mg/dL Glucose 117 H (74-99) mg/dL Calcium 9.4 (8.4-10.2) mg/dL AST 24 (14-36) U/L ALT 24 (4-34) U/L Alkaline Phosphatase 144 H (38-126) U/L Total Protein 7.5 (6.3-8.2) g/dL Albumin 4.4 (3.5-5.0) g/dL Calcium panel 06/08/23 Range/Units 12:39 Calcium 9.4 (8.4-10.2) mg/dL Albumin 4.4 (3.5-5.0) g/dL Pituitary panel 06/08/23 Range/Units 12:39 Sodium 130 L (137-145) mmol/L Potassium 4.7 (3.5-5.1) mmol/L Chloride 92 L (98-107) mmol/L Carbon Dioxide 26 (22-30) mmol/L BUN 6 L (7-17) mg/dL Creatinine 0.45 L (0.52-1.04) mg/dL Glucose 117 H (74-99) mg/dL Calcium 9.4 (8.4-10.2) mg/dL Adrenal panel 06/08/23 Range/Units 12:39 Sodium 130 L (137-145) mmol/L Potassium 4.7 (3.5-5.1) mmol/L Chloride 92 L (98-107) mmol/L Carbon Dioxide 26 (22-30) mmol/L BUN 6 L (7-17) mg/dL Creatinine 0.45 L (0.52-1.04) mg/dL Glucose 117 H (74-99) mg/dL Calcium 9.4 (8.4-10.2) mg/dL Total Bilirubin 0.9 (0.2-1.3) mg/dL AST 24 (14-36) U/L ALT 24 (4-34) U/L Alkaline Phosphatase 144 H (38-126) U/L Total Protein 7.5 (6.3-8.2) g/dL Albumin 4.4 (3.5-5.0) g/dL
[2023-06-09] MEDS ORDERED: METOCLOPRAMIDE 5 MG/ML 2 ML VIAL IVP PRN (21:05)
[2023-06-09] MEDS: ACETAMINOPHEN TAB 325 MG TAB PO PRN (21:16)
[2023-06-09] MEDS: ONDANSETRON 4 MG/2 ML VIAL IVP PRN (21:16)
[2023-06-10] MEDS ORDERED: METOCLOPRAMIDE 5 MG/ML 2 ML VIAL IVP SCH
--- NOTE | 2023-06-10 02:24 | PN ---
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 She has come in with diverticular abscess. She is going to be on IV antibiotics for the week and she is going to get a repeat CAT scan on Monday. She says surgery told her, remains on broad-spectrum antibiotics. Her abdominal pain is slowly improving. Abdomen is less tight, less tenderness to palpation in left lower quadrant, which is improved. OBJECTIVE: CARDIOVASCULAR: S1, S2. PSYCH: Fair mood and affect. NEUROLOGIC: Alert and oriented x3. LUNGS: Scattered wheeze. ASSESSMENT: Diverticular abscess. Continue with IV antibiotics. Repeat CAT scan on Monday. Monitor sed rates, abdominal pain, etc. PROGNOSIS: Guarded. Home medications have been restarted. MMODL / IJN: [id number] /
--- NOTE | 2023-06-10 03:39 | HP ---
HISTORY AND PHYSICAL HISTORY OF PRESENT ILLNESS: 63-year-old white female, came in to the hospital for left lower quadrant abdominal pain, being sent here 2 days ago. She was sent home 2 days. She came back 2 days later with left lower quadrant pain. CAT scan showed diverticular abscess, which she is with severe pain. She is admitted with IV antibiotics and IV pain control. Surgical and Infectious Disease consults are pending. HOME MEDICINES: 1. DuoNeb q.i.d. 2. Norvasc 5 mg daily. 3. Lamictal 100 mg b.i.d. 4. Xanax 2.5 b.i.d. 5. Singulair 10 daily. 6. Fexofenadine 180 daily. 7. [place] 7.5 b.i.d. 8. Spiriva 2.5 two puffs daily. 9. Budesonide 160/4.5 two puffs b.i.d. 10.Aspirin 81 daily. REVIEW OF SYSTEMS: 14-point review of systems is otherwise negative. PAST MEDICAL HISTORY: Chest pain, angina, COPD, GERD, hearing disorder, deafness, migraine, tinnitus. PAST SURGICAL HISTORY: Appendectomy, heart catheterization, hysterectomy, tubal ligation, loop recorder, anxiety, depression, former smoker. FAMILY HISTORY: Brother with coronary artery disease, myocardial infarction. Father has MRSA. Mother had cancer of the lung. PHYSICAL EXAMINATION: VITAL SIGNS: Temp 98, pulse 112, respiratory rate 16-18, blood pressure 126/83, O2 of 95%. CARDIOVASCULAR: S1, S2. LUNGS: Scattered wheeze and rhonchi. PSYCH: Fair mood and affect. NEUROLOGIC: Alert and oriented x3. HEMATOLOGIC: Negative [place]. GI: There is tenderness to palpation in the left lower quadrant, but there is no guarding. LABORATORY DATA: Barium enema done a month ago. Hemoglobin 15.1, white count 16, BUN 6, creatinine 0.45. ASSESSMENT: Chronic obstructive pulmonary disease, diverticulosis, diverticulitis, failed outpatient treatment, nicotine addiction, possible diverticular abscess. Wait for Infectious Disease and surgical consult. Prognosis guarded. MMODL / IJN: [id number] /
--- NOTE | 2023-06-10 07:54 | P.CONS ---
History of Present Illness - Reason for Consult Consult date: 06/09/23 - History of Present Illness Patient is a 63-year-old female with a past medical history significant for COPD reflux anxiety depression former smoker presenting to the hospital for evaluation of abdominal pain, the patient symptom has been going on for the last 4 to 5 days the patient was evaluated 2 days prior to this admission and [facility] and was diagnosed with diverticulitis and has been treated with Augmentin however the patient complaining of increasing pain patient describes the pain to be mostly left lower abdominal area describing it to be sharp almost 8-9 out of 10 without any duration and the patient started having vomiting for the patient was brought into the hospital but denies having any bowel movement still passing pass with the symptoms the patient was evaluated on presentation the hospital the patient was afebrile patient was mildly tachycardic but not hypotensive mildly hypoxic currently on 2 L nasal cannula oxygen patient did have white count of 16,000 creatinine 0.45 electrolytes are normal liver enzymes normal urine has been negative patient did have abdominal pelvis CT mention finding consistent with acute diverticulitis sigmoid colonic did not mention any perforation or an abscess patient was started on Zosyn infectious disease was consulted for further management of antibiotic therapy Past Medical History Past Medical History: Chest Pain / Angina, COPD, GERD/Reflux, Hearing Disorder / Deafness Additional Past Medical History / Comment(s): Chronic bronchitis, sinus tachycardia, chronic back pain, migraines, bilateral hearing aid use, bilateral tinnitis. History of Any Multi-Drug Resistant Organisms: None Reported Past Surgical History: Appendectomy, Heart Catheterization, Hysterectomy, Tubal Ligation Additional Past Surgical History / Comment(s): Loop recorder inserted and later removed. Past Anesthesia/Blood Transfusion Reactions: No Reported Reaction Past Psychological History: Anxiety, Depression Smoking Status: Former smoker Past Alcohol Use History: None Reported Past Drug Use History: None Reported - Past Family History Brother(s) Family Medical History: Coronary Artery Disease (CAD), Myocardial Infarction ([place]) Additional Family Medical History / Comment(s): [place] in his early 40s, had pac emaker. Sister(s) Family Medical History: Mitral Valve Prolapse (MVP) Father Additional Family Medical History / Comment(s): "Post Op MRSA infection- from complications of that." Mother Family Medical History: Cancer Additional Family Medical History / Comment(s): Lung cancer. Medications and Allergies Home Medications Medication Instructions Recorded Confirmed Type Budesonide-Formot 160-4.5 Mcg 2 puff INHALATION RT-BID #1 unit 12/01/17 06/08/23 Rx [Symbicort 160-4.5 Mcg Inhaler] Ipratropium-Albuterol Nebulize 3 ml INHALATION RT-TID PRN 11/03/22 06/08/23 History [Duoneb 0.5 mg-3 mg/3 ml Soln] amLODIPine [Norvasc] 5 mg PO DAILY 12/26/22 06/08/23 History lamoTRIgine [LaMICtal] 100 mg PO BID 12/26/22 06/08/23 History Aspirin 81 mg PO DAILY 90 Days #90 tab 01/11/23 06/08/23 Rx ALPRAZolam [Xanax] 0.5 mg PO BID 02/08/23 06/08/23 History Montelukast [Singulair] 10 mg PO DAILY 05/11/23 06/08/23 History Amoxic-Pot Clav 875-125Mg 1 tab PO Q12HR #20 tab 06/06/23 06/08/23 Rx [Augmentin 875-125] Fexofenadine HCl [Valeri Allergy] 180 mg PO DAILY 06/06/23 06/08/23 History HYDROcodone/APAP 7.5-325MG [Denhoff 1 tab PO BID PRN 06/06/23 06/08/23 History 7.5-325] Tiotropium 2.5 Mcg/Puff [Spiriva 2 puff INHALATION RT-BID 06/06/23 06/08/23 History Respimat 2.5 Mcg] Allergies Allergy/AdvReac Type Severity Reaction Status Date / Time dust AdvReac Dyspnea Uncoded 06/08/23 13:48 Physical Exam Vitals: Vital Signs Temp Pulse Pulse Resp BP BP Pulse Ox 06/09/23 11:15 96 06/09/23 11:07 92 06/09/23 07:57 96 06/09/23 07:45 100 06/09/23 06:49 98.9 F 101 H 18 121/74 99 06/09/23 01:26 98.2 F 103 H 17 108/67 94 L 06/08/23 22:22 97.8 F 106 H 14 154/72 91 L 06/08/23 19:57 98.2 F 89 18 140/87 97 06/08/23 18:36 89 18 115/74 94 L 06/08/23 16:14 98.2 F 101 H 18 133/79 95 06/08/23 11:54 98.0 F 112 H 18 126/83 96 Intake and Output 06/08/23 06/09/23 06/09/23 22:59 06:59 14:59 Intake Total 800 Balance 800 Intake: Intake, IV Titration 800 Amount Piperacillin-Tazobactam 3 100 .375 gm In Sodium Chloride 0.9% 100 ml @ 25 mls/hr IVPB Q8HR [facility] Rx# :[id number] Sodium Chloride 0.9% 1, 700 000 ml @ 75 mls/hr IV . [id number] [facility] Rx#:[id number] Other: # Voids 5 2 Weight 61.235 kg Results CBC & Chem 7: 06/08/23 12:39 06/08/23 12:39 Labs: Abnormal Lab Results - Last 24 Hours (Table) 06/08/23 06/08/23 06/08/23 Range/Units 12:39 12:39 17:21 WBC 16.0 H (3.8-10.6) k/uL Hct 46.3 H (34.0-46.0) % Plt Count 457 H (150-450) k/uL Neutrophils # 13.6 H (1.3-7.7) k/uL Monocytes # 1.1 H (0-1.0) k/uL Sodium 130 L (137-145) mmol/L Chloride 92 L (98-107) mmol/L BUN 6 L (7-17) mg/dL Creatinine 0.45 L (0.52-1.04) mg/dL Glucose 117 H (74-99) mg/dL Alkaline Phosphatase 144 H (38-126) U/L Lipase 18 L (23-300) U/L Ur Specific Dana >1.050 H (1.001-1.035) Urine Ketones 1+ H (Negative) Urine Blood Trace H (Negative) Assessment and Plan Plan: 1patient was in the hospital abdominal pain and this patient has been diagnosed with acute diverticulitis failing outpatient oral Augmentin therapy CT did not mention any perforation or abscess. 2Zosyn 3.375 g every 8 hours should provide adequate antibiotic coverage for diverticulitis along with the bowel rest, pain management per admitting team Multiple question concern answered We will follow on clinical condition and cultures to further adjust medication if needed Thank you for this consultation we will follow the patient along with you Dictation was produced using [employer] dictation software. please excuse any grammatical, word or spelling errors.
[2023-06-10] MEDS: HYDROmorphone 0.5 MG/0.5 ML SYRINGE IVP PRN (08:02)
[2023-06-10 09:29] LABS: HCT 35.1 % (37.2-46.3); HGB 11.1 g/dL (12.0-15.0); MCH 31.7 pg (27.0-32.0); MCHC 31.6 g/dL (32.0-37.0); MCV 100.3 FL (80.0-97.0); Mean Platelet Volume 10.1 FL (9.5-12.2); NRBC Per 100 WBC 0 X 10*3/uL (0.00-0.01); Platelet Count 382 X 10*3/uL (140-440); RDW 13.8 % (11.5-14.5); WBC 13.69 X 10*3/uL (4.50-10.00)
[2023-06-10 10:24] LABS: Basophils # (A) 0.05 X 10*3/uL (0.00-0.10); Basophils % (A) 0.4 %; Eosinophils # (A) 0.02 X 10*3/uL (0.04-0.35); Eosinophils % (A) 0.1 %; Lymphocytes # (A) 1.13 X 10*3/uL (0.90-5.00); Lymphocytes % (A) 8.3 %; Monocytes # (A) 1.72 X 10*3/uL (0.20-1.00); Monocytes % (A) 12.6 %; Neutrophils # (A) 10.71 X 10*3/uL (1.80-7.70); Neutrophils % (A) 78.2 %; RBC Morphology Normal (Normal)
[2023-06-10] MEDS: HYDROcodone/APAP 7.5-325MG 1 EACH TAB PO PRN (15:43)
--- NOTE | 2023-06-10 17:34 | P.PN ---
Subjective Progress Note Date: 06/10/23 Manage due to failed outpatient management for diverticulitis. She reports increased abdominal pain and is on liquid diet. She reports her pain is decreased on the left side but increased along the right side. She believes she is constipated. Abdomen: No diffuse peritonitis. Mild tenderness right lower quadrant. Plan: 1. Recommend bowel rest with ice chips popsicles. Diet downgraded from clear l iquids. 2. CT of the abdomen pelvis to investigate progression of diverticulitis Objective - Vital Signs Vital signs: Vital Signs Temp 98.0 F 06/10/23 14:00 Pulse 102 H 06/10/23 15:26 Resp 18 06/10/23 14:00 BP 104/70 06/10/23 14:00 Pulse Ox 92 L 06/10/23 14:00 FiO2 Intake & Output 06/09/23 06/10/23 06/10/23 18:59 06:59 18:59 Intake Total 900 Balance 900 Intake: Oral 900 Other: Voiding Method Toilet # Voids 2 3 - Labs CBC & Chem 7: 06/10/23 03:36 06/08/23 12:39 Labs: Abnormal Lab Results - Last 24 Hours (Table) 06/10/23 Range/Units 03:36 WBC 13.69 H (4.50-10.00) X 10*3/uL RBC 3.50 L (4.10-5.20) X 10*6/uL Hgb 11.1 L (12.0-15.0) g/dL Hct 35.1 L (37.2-46.3) % MCV 100.3 H (80.0-97.0) FL MCHC 31.6 L (32.0-37.0) g/dL Immature Gran # 0.06 H (0.00-0.04) X 10*3/uL Neutrophils # 10.71 H (1.80-7.70) X 10*3/uL Monocytes # 1.72 H (0.20-1.00) X 10*3/uL Eosinophils # 0.02 L (0.04-0.35) X 10*3/uL Microbiology - Last 24 Hours (Table) 06/08/23 14:03 Blood Culture Gram Stain - Preliminary Blood Blood Culture - Preliminary Bacillus species Not Anthracis 06/08/23 14:13 Blood Culture - Preliminary Blood
[2023-06-11] MEDS: IOPAMIDOL CONTRAST (ORAL USE) VIAL PO PRN (08:46)
[2023-06-11 09:53] LABS: BUN/Creat Ratio <7.00 Ratio (12.00-20.00); Blood Urea Nitrogen <3.5 mg/dL (9.0-27.0); Glucose 108 mg/dL (70-110)
[2023-06-11 09:54] LABS: ALT 14 U/L (8-44); AST 19 U/L (13-35); Albumin 3.5 g/dL (3.8-4.9); Albumin/Globulin Ratio 1.84 Ratio (1.60-3.17); Alkaline Phosphatase 102 U/L (41-126); Calcium 8.6 mg/dL (8.7-10.3); Carbon Dioxide 25.2 mmol/L (21.6-31.8); Chloride 96 mmol/L (96-109); Globulin 1.9 g/dL (1.6-3.3); Potassium 4.4 mmol/L (3.5-5.5); Sodium 132 mmol/L (135-145); Total Bilirubin 0.3 mg/dL (0.3-1.2); Total Protein 5.4 g/dL (6.2-8.2)
[2023-06-11 09:58] LABS: Basophils # (A) 0.06 X 10*3/uL (0.00-0.10); Basophils % (A) 0.5 %; Eosinophils # (A) 0.08 X 10*3/uL (0.04-0.35); Eosinophils % (A) 0.6 %; HCT 34.8 % (37.2-46.3); Lymphocytes # (A) 1.02 X 10*3/uL (0.90-5.00); Lymphocytes % (A) 7.8 %; MCH 30.9 pg (27.0-32.0); MCHC 31.6 g/dL (32.0-37.0); MCV 97.8 FL (80.0-97.0); Mean Platelet Volume 9.3 FL (9.5-12.2); Monocytes # (A) 1.77 X 10*3/uL (0.20-1.00); Monocytes % (A) 13.5 %; NRBC Per 100 WBC 0 X 10*3/uL (0.00-0.01); Neutrophils # (A) 10.14 X 10*3/uL (1.80-7.70); Neutrophils % (A) 77.1 %; Platelet Count 424 X 10*3/uL (140-440); RBC 3.56 X 10*6/uL (4.10-5.20); RDW 13.7 % (11.5-14.5); WBC 13.13 X 10*3/uL (4.50-10.00)
--- NOTE | 2023-06-11 12:42 | P.PN ---
Subjective Progress Note Date: 06/11/23 patient still has complaints of significant left lower quadrant pain. Her computed tomography scan was performed this morning. There appears to be significant inflammatory change of the sigmoid colon with mural wall thickness. On exam vital signs appear stable. Abdomen is soft. There is marked left lower quadrant tenderness. Severe diverticulitis with failed outpatient therapy. patient may require sigmoid colectomy. We will await her official CT report. Objective - Vital Signs Vital signs: Vital Signs Temp 97.8 F 06/11/23 07:09 Pulse 102 H 06/11/23 11:27 Resp 18 06/11/23 07:09 BP 124/77 06/11/23 07:09 Pulse Ox 96 06/11/23 07:09 FiO2 Intake & Output 06/10/23 06/11/23 06/11/23 18:59 06:59 18:59 Intake Total 880 Balance 880 Intake: Oral 880 Other: Voiding Method Toilet # Voids 3 3 - Labs CBC & Chem 7: 06/11/23 06:02 06/11/23 06:02 Labs: Abnormal Lab Results - Last 24 Hours (Table) 06/11/23 06/11/23 Range/Units 06:02 06:02 WBC 13.13 H (4.50-10.00) X 10*3/uL RBC 3.56 L (4.10-5.20) X 10*6/uL Hgb 11.0 L (12.0-15.0) g/dL Hct 34.8 L (37.2-46.3) % MCV 97.8 H (80.0-97.0) FL MCHC 31.6 L (32.0-37.0) g/dL MPV 9.3 L (9.5-12.2) FL Immature Gran # 0.06 H (0.00-0.04) X 10*3/uL Neutrophils # 10.14 H (1.80-7.70) X 10*3/uL Monocytes # 1.77 H (0.20-1.00) X 10*3/uL Sodium 132 L (135-145) mmol/L BUN <3.5 L (9.0-27.0) mg/dL Creatinine 0.5 L (0.6-1.5) mg/dL BUN/Creatinine Ratio <7.00 L (12.00-20.00) Ratio Calcium 8.6 L (8.7-10.3) mg/dL Total Protein 5.4 L (6.2-8.2) g/dL Albumin 3.5 L (3.8-4.9) g/dL Microbiology - Last 24 Hours (Table) 06/08/23 14:13 Blood Culture - Preliminary Blood 06/08/23 14:03 Blood Culture Gram Stain - Preliminary Blood Blood Culture - Preliminary Bacillus species Not Anthracis
--- NOTE | 2023-06-11 14:32 | CT ---
EXAMINATION TYPE: CT abdomen pelvis w con CT DLP: 751.9 mGycm, Automated exposure control for dose reduction was used. DATE OF EXAM: 06/11/2023 10:31 AM COMPARISON: CT 06/08/2023 CLINICAL INDICATION:Female, 63 years old with history of abdominal pain, diverticulitis; abd pain TECHNIQUE: Axial CT of the abdomen and pelvis. Sagittal and coronal reformats were created on a [facility] workstation. Contrast used:100 mL of Isovue 300 with IV Contrast, (none if empty) Oral contrast used: with Oral Contrast (none if empty) FINDINGS: LOWER CHEST: Small bilateral pleural effusions have developed with adjacent compressive atelectasis a nd/or infiltrates. Heart size upper normal. There remains no pericardial effusion. There may be small sliding hiatal hernia. ABDOMEN LIVER: Appears stable. Focal fatty infiltration again seen anteriorly. GALLBLADDER AND BILE DUCTS: Stable unremarkable PANCREAS: Stable unremarkable SPLEEN: Stable unremarkable ADRENAL GLANDS: Stable. Mildly thickened without evidence of mass.. KIDNEYS AND URETERS: Stable unremarkable PELVIS BLADDER: Stable unremarkable REPRODUCTIVE: Not seen, likely absent, correlate with history ABDOMEN & PELVIS STOMACH AND BOWEL: Contrast traverses the stomach and small bowel without evidence of obstruction. Co ntrast has almost reached the colon. The appendix is not seen with certainty but there is no inflamm atory process seen in the pericecal region. Moderate to large amount of stool extending from the pro ximal to mid descending colon. There is thereafter mainly gaseous contents until there is additional mild/moderate stool encountered throughout the sigmoid and rectum. Again there is thickening of the sigmoid wall with pericolonic fat stranding, similar to the prior studies. The area of previously que stioned possible early abscess in the anterior sigmoid wall appears less conspicuous presently, howev er smoldering infection or nonfocal fluid in the wall could be present. No new focal fluid collection s seen to suggest abscess at this time. PERITONEUM/RETROPERITONEUM: No evidence of pneumoperitoneum or free fluid in the abdomen. Small teresita unt of free pelvic fluid mostly about the sigmoid, similar to previous. Fluid again outlines some ovo id lobular fat density structures, likely epiploic appendages. VASCULATURE: Unchanged. Atherosclerotic disease without AAA. LYMPH NODES: No enlarged nodes by CT size criteria. SOFT TISSUE/ABDOMINAL WALL: Unchanged small fat-containing umbilical hernia. Development of mild gene ralized body wall edema. MUSCULOSKELETAL: No significant change. Degenerative changes again noted without acute osseous pathol ogy. IMPRESSION: * Overall similar appearance of the sigmoid colon, may reflect diverticulitis or focal colitis. * Small bilateral pleural effusions have developed, with adjacent compressive atelectasis and/or inf iltrates. * New mild body wall edema. Correlate for third spacing of fluids.
--- NOTE | 2023-06-11 15:29 | P.PN ---
Subjective Progress Note Date: 06/10/23 Principal diagnosis: Reason for follow-up is diverticulitis failed outpatient therapy Patient is a 63-year-old female with a past medical history significant for COPD reflux anxiety depression former smoker presenting to the hospital for evaluation of abdominal pain with recent diagnosis of diverticulitis failing outpatient oral Augmentin therapy. On today's evaluation that is 06/10/2023, Patient is afebrile patient is currently on 2 L nasal cannula oxygen and denies having any shortness of breath, the patient denies any chest pain or cough, the patient denies any nausea vomiting still complaining of abdominal pain and more more stronger pain medication. Patient white count is down to 13.69 Objective - Vital Signs Vital signs: Vital Signs Temp 98.0 F 06/10/23 14:00 Pulse 102 H 06/10/23 15:26 Resp 18 06/10/23 14:00 BP 104/70 06/10/23 14:00 Pulse Ox 92 L 06/10/23 14:00 FiO2 Intake & Output 06/09/23 06/10/23 06/10/23 18:59 06:59 18:59 Intake Total 900 Balance 900 Intake: Oral 900 Other: Voiding Method Toilet # Voids 2 3 - Exam GENERAL DESCRIPTION: Middle-aged female up in bed in no distress RESPIRATORY SYSTEM: Unlabored breathing , decreased breath sounds at bases HEART: S1 S2 regular rate and rhythm , ABDOMEN: Soft , mild tenderness EXTREMITIES: No edema feet - Labs CBC & Chem 7: 06/11/23 06:02 06/11/23 06:02 Labs: Abnormal Lab Results - Last 24 Hours (Table) 06/10/23 Range/Units 03:36 WBC 13.69 H (4.50-10.00) X 10*3/uL RBC 3.50 L (4.10-5.20) X 10*6/uL Hgb 11.1 L (12.0-15.0) g/dL Hct 35.1 L (37.2-46.3) % MCV 100.3 H (80.0-97.0) FL MCHC 31.6 L (32.0-37.0) g/dL Immature Gran # 0.06 H (0.00-0.04) X 10*3/uL Neutrophils # 10.71 H (1.80-7.70) X 10*3/uL Monocytes # 1.72 H (0.20-1.00) X 10*3/uL Eosinophils # 0.02 L (0.04-0.35) X 10*3/uL Microbiology - Last 24 Hours (Table) 06/08/23 14:03 Blood Culture Gram Stain - Preliminary Blood Blood Culture - Preliminary Bacillus species Not Anthracis 06/08/23 14:13 Blood Culture - Preliminary Blood Assessment and Plan (1) Diverticulitis Current Visit: Yes Status: Acute Code(s): K57.92 - DVTRCLI OF INTEST, PART UNSP, W/O PERF OR ABSCESS W/O BLEED SNOMED Code(s): 743660800 (2) Failure of outpatient treatment Current Visit: Yes Status: Acute Code(s): Z78.9 - OTHER SPECIFIED HEALTH STATUS SNOMED Code(s): 559317730 Plan: 1patient was in the hospital abdominal pain and this patient has been diagnosed with acute diverticulitis failing outpatient oral Augmentin therapy CT did not mention any perforation or abscess. 2patient currently being treated with Zosyn 3.375 g every 8 hours and monitor clinical course closely Dictation was produced using [employer] dictation software. please excuse any grammatical, word or spelling errors. Time with Patient: Less than 30
--- NOTE | 2023-06-11 15:30 | P.PN ---
Subjective Progress Note Date: 06/11/23 Principal diagnosis: Reason for follow-up is diverticulitis failed outpatient therapy and positive blood culture Patient is a 63-year-old female with a past medical history significant for COPD reflux anxiety depression former smoker presenting to the hospital for evaluation of abdominal pain with recent diagnosis of diverticulitis failing outpatient oral Augmentin therapy. On today's evaluation that is 06/11/2023, patient has been afebrile, patient is breathing comfortably and is currently on 2 L nasal cannula oxygen, patient denies having any significant cough no chest pain shortness of breath, patient denies nausea vomiting still complaining of abdominal pain did not mention any improvement. The patient white count is down to 13.13, creatinine 0.5 Blood culture with bacillus species Objective - Vital Signs Vital signs: Vital Signs Temp 99.1 F 06/11/23 14:00 Pulse 104 H 06/11/23 15:24 Resp 18 06/11/23 14:00 BP 104/67 06/11/23 14:00 Pulse Ox 89 L 06/11/23 14:00 FiO2 Intake & Output 06/10/23 06/11/23 06/11/23 18:59 06:59 18:59 Intake Total 880 Balance 880 Intake: Oral 880 Other: Voiding Method Toilet Toilet # Voids 3 3 - Exam GENERAL DESCRIPTION: Middle-aged female up in bed in no distress RESPIRATORY SYSTEM: Unlabored breathing , decreased breath sounds at bases HEART: S1 S2 regular rate and rhythm , ABDOMEN: Soft , mild tenderness EXTREMITIES: No edema feet - Labs CBC & Chem 7: 06/11/23 06:02 06/11/23 06:02 Labs: Abnormal Lab Results - Last 24 Hours (Table) 06/11/23 06/11/23 Range/Units 06:02 06:02 WBC 13.13 H (4.50-10.00) X 10*3/uL RBC 3.56 L (4.10-5.20) X 10*6/uL Hgb 11.0 L (12.0-15.0) g/dL Hct 34.8 L (37.2-46.3) % MCV 97.8 H (80.0-97.0) FL MCHC 31.6 L (32.0-37.0) g/dL MPV 9.3 L (9.5-12.2) FL Immature Gran # 0.06 H (0.00-0.04) X 10*3/uL Neutrophils # 10.14 H (1.80-7.70) X 10*3/uL Monocytes # 1.77 H (0.20-1.00) X 10*3/uL Sodium 132 L (135-145) mmol/L BUN <3.5 L (9.0-27.0) mg/dL Creatinine 0.5 L (0.6-1.5) mg/dL BUN/Creatinine Ratio <7.00 L (12.00-20.00) Ratio Calcium 8.6 L (8.7-10.3) mg/dL Total Protein 5.4 L (6.2-8.2) g/dL Albumin 3.5 L (3.8-4.9) g/dL Microbiology - Last 24 Hours (Table) 06/08/23 14:03 Blood Culture Gram Stain - Final Blood Blood Culture - Final Bacillus species Not Anthracis 06/08/23 14:13 Blood Culture - Preliminary Blood Assessment and Plan (1) Diverticulitis Current Visit: Yes Status: Acute Code(s): K57.92 - DVTRCLI OF INTEST, PART UNSP, W/O PERF OR ABSCESS W/O BLEED SNOMED Code(s): 107482294 (2) Failure of outpatient treatment Current Visit: Yes Status: Acute Code(s): Z78.9 - OTHER SPECIFIED HEALTH STATUS SNOMED Code(s): 653074064 (3) Positive blood culture Current Visit: Yes Status: Acute Code(s): R78.81 - BACTEREMIA SNOMED Code(s): 176007523 Plan: 1patient was in the hospital abdominal pain and this patient has been diagnosed with acute diverticulitis failing outpatient oral Augmentin therapy CT did not mention any perforation or abscess. 2patient currently being treated with Zosyn 3.375 g every 8 hours 3-patient did have a positive blood culture with a question of contamination we will repeat blood cultures inflammatory markers Dictation was produced using [employer] dictation software. please excuse any grammatical, word or spelling errors. Time with Patient: Less than 30
[2023-06-11] MEDS ORDERED: BUDESONIDE 0.5 MG/2 ML NEBU INHALATION SCH (20:00)
[2023-06-11] MEDS: AZITHROMYCIN 500 MG in SODIUM CHLORIDE 0.9% 250 ML IVPB SCH (20:53)
[2023-06-11] MEDS: LACTULOSE 20 GM/30 ML CUP PO SCH (20:53)
--- NOTE | 2023-06-11 21:31 | CT ---
EXAMINATION TYPE: CT chest wo con CT DLP: 258.2 mGycm, Automated exposure control for dose reduction was used. DATE OF EXAM: 06/11/2023 8:34 PM COMPARISON: 01/08/2023 CT chest dating back to 09/17/2019 CLINICAL INDICATION:Female, 63 years old with history of hypoxia/pleural effusion; PHH, sob TECHNIQUE: Multiple axial images were obtained through the chest. Sagittal and coronal reformats were created for review. Contrast used: mL of (None if empty) Oral contrast used: (None if empty) FINDINGS: LUNGS/ PLEURA: Right middle lobe subpleural nodule near the minor fissure measuring 10 mm previously 8 mm series 201 image 78. This has steadily been increasing in size that 04/04/2019. An additional right upper lung nodule which is not fully seen on prior series 201 image 44 measuring 13 mm x 6 mm. Right upper lung cystic change and emphysema changes present. No evidence for airspace consolidation or pneumothorax. Trace bilateral pleural effusions. AIRWAY: Patent and unremarkable. HEART: Size within normal limits. Aortic valve leaflet calcifications are present.Atherosclerosis of the coronary arteries MEDIASTINUM: No gross evidence of adenopathy. VASCULATURE: No aortic aneurysm. Atherosclerosis of the arterial vasculature. MUSCULOSKELETAL: No acute osseous abnormalities increased wedging of the T7 vertebral body compared t o prior 01/08/2023. There is now approximately 25-50% height loss. SOFT TISSUES/LYMPH NODES: Unremarkable. LOWER NECK: No significant findings. UPPER ABDOMEN: No significant findings. IMPRESSION: 1. No definitive acute thoracic process to explain the patient's dyspnea. No airspace consolidation or pneumothorax. 2. Moderate emphysema changes most proximal left upper lung. Trace bilateral pleural effusions. 3. Chronic parenchymal changes to the right lung with increasing right upper lung and right middle l trace nodule sizes. Further evaluation with PET/CT should be considered as they are suspicious for mervat y malignancy. 4. Progression of T7 vertebral body wedge compression fracture.
--- NOTE | 2023-06-12 06:44 | PN ---
PROGRESS NOTE DATE OF SERVICE: 06/10/2023 A 63-year-old white female, failed outpatient treatment. She came in and was admitted with diverticular abscess with severe left lower quadrant pain. Remains on broad- spectrum antibiotics. Waiting for the CAT scan to be done tomorrow to see if there is an improvement in abdomen. She has had a bad day. She has a lot of pain in her lower legs, the lower abdomen and left lower quadrant. OBJECTIVE: CARDIOVASCULAR: S1, S2. LUNGS: Transmitted upper airway sounds. PSYCH: She is kind of sleepy lethargic. NEUROLOGIC: Negative Homans. PLAN: CAT scan will be done tomorrow. Check the abdomen and mostly if the abscess is getting bigger, further IV antibiotics will be continued. Continue current treatment. Until we get a plan for diverticular abscess from Surgery, PICC line or oral antibiotics will be needed. Prognosis is guarded. MMJEFFL / DARRYLN: [id number] /
--- NOTE | 2023-06-12 07:20 | PN ---
PROGRESS NOTE 63-year-old white female, her pulse ox is 89 on 2 to 3 L which is low for her for possible pneumonia seen on CAT scan of the abdomen. We are going to check CAT scan of her chest due to pleural effusion seen on CAT scan of her abdomen, there was lots of stool in her colon, diverticulitis, continued on Zosyn, Protonix. Surgery will decide what to do tomorrow. Possibly, we will just watch her for another 24 hours prior to deciding on the surgery as she has the abscesses seen on the CAT scan. She will be on clear liquids with n.p.o. at midnight. PROGNOSIS: Guarded. MMODL / IJN: [id number] /
[2023-06-12 08:38] LABS: Basophils # (A) 0.09 X 10*3/uL (0.00-0.10); Basophils % (A) 0.8 %; Eosinophils # (A) 0.17 X 10*3/uL (0.04-0.35); Eosinophils % (A) 1.6 %; HGB 11.3 g/dL (12.0-15.0); Lymphocytes # (A) 1.18 X 10*3/uL (0.90-5.00); Lymphocytes % (A) 10.8 %; MCH 30.9 pg (27.0-32.0); MCHC 31.4 g/dL (32.0-37.0); MCV 98.4 FL (80.0-97.0); Mean Platelet Volume 9.2 FL (9.5-12.2); Monocytes # (A) 1.36 X 10*3/uL (0.20-1.00); Monocytes % (A) 12.4 %; NRBC Per 100 WBC 0 X 10*3/uL (0.00-0.01); Neutrophils # (A) 8.09 X 10*3/uL (1.80-7.70); Neutrophils % (A) 73.8 %; Platelet Count 485 X 10*3/uL (140-440); RBC 3.66 X 10*6/uL (4.10-5.20); RDW 13.6 % (11.5-14.5); WBC 10.96 X 10*3/uL (4.50-10.00)
[2023-06-12 08:50] LABS: ALT 13 U/L (8-44); AST 15 U/L (13-35); Albumin 3.2 g/dL (3.8-4.9); Alkaline Phosphatase 100 U/L (41-126); BUN/Creat Ratio <8.75 Ratio (12.00-20.00); Blood Urea Nitrogen <3.5 mg/dL (9.0-27.0); Calcium 8.8 mg/dL (8.7-10.3); Carbon Dioxide 26.8 mmol/L (21.6-31.8); Chloride 96 mmol/L (96-109); Glucose 93 mg/dL (70-110); Sodium 135 mmol/L (135-145); Total Bilirubin 0.4 mg/dL (0.3-1.2); Total Protein 5.2 g/dL (6.2-8.2)
[2023-06-12 10:13] LABS: Erythrocyte Sedimentation Rate 41 mm/Hr (0-30)
--- NOTE | 2023-06-12 12:13 | P.PN ---
Subjective Progress Note Date: 06/12/23 Principal diagnosis: Reason for follow-up is diverticulitis failed outpatient therapy and positive blood culture Patient is a 63-year-old female with a past medical history significant for COPD reflux anxiety depression former smoker presenting to the hospital for evaluation of abdominal pain with recent diagnosis of diverticulitis failing outpatient oral Augmentin therapy. On today's evaluation that is 06/12/2023,the patient denies any fever or any chills, patient is breathing comfortably on 2 L nasal cannula oxygen, the patient denies chest pain shortness of breath and no significant cough, patient still complaining of abdominal pain along with nausea but no vomiting no diarrhea. Patient white count is down to 10.96, creatinine 0.4 Objective - Vital Signs Vital signs: Vital Signs Temp 98.7 F 06/12/23 07:37 Pulse 108 H 06/12/23 09:17 Resp 20 06/12/23 07:37 BP 145/79 06/12/23 07:37 Pulse Ox 97 06/12/23 07:37 FiO2 Intake & Output 06/11/23 06/12/23 06/12/23 18:59 06:59 18:59 Other: Voiding Method Toilet Toilet Toilet # Voids 1 4 - Exam GENERAL DESCRIPTION: Middle-aged female up in bed in no distress RESPIRATORY SYSTEM: Unlabored breathing , decreased breath sounds at bases HEART: S1 S2 regular rate and rhythm , ABDOMEN: Soft , mild tenderness EXTREMITIES: No edema feet - Labs CBC & Chem 7: 06/12/23 05:50 06/12/23 05:50 Labs: Abnormal Lab Results - Last 24 Hours (Table) 06/12/23 06/12/23 Range/Units 05:50 05:50 WBC 10.96 H (4.50-10.00) X 10*3/uL RBC 3.66 L (4.10-5.20) X 10*6/uL Hgb 11.3 L (12.0-15.0) g/dL Hct 36.0 L (37.2-46.3) % MCV 98.4 H (80.0-97.0) FL MCHC 31.4 L (32.0-37.0) g/dL Plt Count 485 H (140-440) X 10*3/uL MPV 9.2 L (9.5-12.2) FL Immature Gran # 0.07 H (0.00-0.04) X 10*3/uL Neutrophils # 8.09 H (1.80-7.70) X 10*3/uL Monocytes # 1.36 H (0.20-1.00) X 10*3/uL ESR 41 H (0-30) mm/Hr Anion Gap 12.20 H (4.00-12.00) mmol/L BUN <3.5 L (9.0-27.0) mg/dL Creatinine 0.4 L (0.6-1.5) mg/dL BUN/Creatinine Ratio <8.75 L (12.00-20.00) Ratio C-Reactive Protein 23.90 H (0.00-0.80) mg/dL Total Protein 5.2 L (6.2-8.2) g/dL Albumin 3.2 L (3.8-4.9) g/dL Microbiology - Last 24 Hours (Table) 06/08/23 14:13 Blood Culture - Preliminary Blood 06/08/23 14:03 Blood Culture Gram Stain - Final Blood Blood Culture - Final Bacillus species Not Anthracis Assessment and Plan (1) Diverticulitis Current Visit: Yes Status: Acute Code(s): K57.92 - DVTRCLI OF INTEST, PART UNSP, W/O PERF OR ABSCESS W/O BLEED SNOMED Code(s): 985052259 (2) Failure of outpatient treatment Current Visit: Yes Status: Acute Code(s): Z78.9 - OTHER SPECIFIED HEALTH STATUS SNOMED Code(s): 572331538 (3) Positive blood culture Current Visit: Yes Status: Acute Code(s): R78.81 - BACTEREMIA SNOMED Code(s): 403684854 Plan: 1patient was in the hospital abdominal pain and this patient has been diagnosed with acute diverticulitis failing outpatient oral Augmentin therapy CT did not mention any perforation or abscess. 2-patient did have a positive blood culture with a question of contamination, blood culture has been repeated results will be followed 3-patient is afebrile and the patient white count has improved still complaining of abdominal pain pain control per admitting team for now continue with the Clara question answered Dictation was produced using [employer] software. please excuse any grammatical, word or spelling errors. Time with Patient: Less than 30
--- NOTE | 2023-06-12 12:43 | P.PN ---
Subjective Progress Note Date: 06/12/23 CHIEF COMPLAINT: Diverticulitis HISTORY OF PRESENT ILLNESS: Patient admitted with severe diverticulitis failing outpatient treatment. Patient continues to complain of abdominal pain. She reports she has had no improvement in the pain. Pain is across the lower abdomen. She has been mildly tachycardic. She does report feeling more short of breath. Patient reports she is unsure if the shortness of breath is related to her abdominal pain. She is on 2 L of oxygen. Reports she is not on oxygen at home. CT scan abdomen and pelvis completed yesterday with results reporting overall similar appearance of the sigmoid colon may reflect diverticulitis or focal colitis. Small bilateral pleural effusions have developed with adjacent compressive atelectasis or infiltrates. New mild body wall edema. Correlate for third spacing. CT scan of the chest no acute process to explain dyspnea. No consolidation or pneumothorax. Moderate emphysema. Lung nodules noted. Progression of T7 vertebral body wedge compression fracture. Afebrile. Mildly tachycardic. WBC is down from 13-10.6 PHYSICAL EXAM: VITAL SIGNS: Reviewed. GENERAL: no acute distress. ABDOMEN: Soft. Nondistended. Tenderness to palpation across lower abdomen NEUROLOGIC: Awake. Sleepy but able to answer questions ASSESSMENT: 1. Acute severe sigmoid diverticulitis with failed outpatient therapy PLAN: -Patient scheduled for sigmoid colectomy, possible colostomy today with Dr. Joyner -Pulmonary consulted for dyspnea Physician Chef Concierge note has been reviewed by physician. Signing provider agrees with the documented findings, assessment, and plan of care. Objective - Vital Signs Vital signs: Vital Signs Temp 98.7 F 06/12/23 07:37 Pulse 108 H 06/12/23 12:25 Resp 20 06/12/23 07:37 BP 145/79 06/12/23 07:37 Pulse Ox 97 06/12/23 07:37 FiO2 Intake & Output 06/11/23 06/12/23 06/12/23 18:59 06:59 18:59 Other: Voiding Method Toilet Toilet Toilet # Voids 1 4 - Labs CBC & Chem 7: 06/12/23 05:50 06/12/23 05:50 Labs: Abnormal Lab Results - Last 24 Hours (Table) 06/12/23 06/12/23 Range/Units 05:50 05:50 WBC 10.96 H (4.50-10.00) X 10*3/uL RBC 3.66 L (4.10-5.20) X 10*6/uL Hgb 11.3 L (12.0-15.0) g/dL Hct 36.0 L (37.2-46.3) % MCV 98.4 H (80.0-97.0) FL MCHC 31.4 L (32.0-37.0) g/dL Plt Count 485 H (140-440) X 10*3/uL MPV 9.2 L (9.5-12.2) FL Immature Gran # 0.07 H (0.00-0.04) X 10*3/uL Neutrophils # 8.09 H (1.80-7.70) X 10*3/uL Monocytes # 1.36 H (0.20-1.00) X 10*3/uL ESR 41 H (0-30) mm/Hr Anion Gap 12.20 H (4.00-12.00) mmol/L BUN <3.5 L (9.0-27.0) mg/dL Creatinine 0.4 L (0.6-1.5) mg/dL BUN/Creatinine Ratio <8.75 L (12.00-20.00) Ratio C-Reactive Protein 23.90 H (0.00-0.80) mg/dL Total Protein 5.2 L (6.2-8.2) g/dL Albumin 3.2 L (3.8-4.9) g/dL Microbiology - Last 24 Hours (Table) 06/08/23 14:13 Blood Culture - Preliminary Blood 06/08/23 14:03 Blood Culture Gram Stain - Final Blood Blood Culture - Final Bacillus species Not Anthracis
[2023-06-12 16:00] LABS: Glucose,Whole Blood 114 mg/dL (70-110)
[2023-06-12] MEDS: SODIUM CHLORIDE 0.9% 1,000 ML IV ONE (16:13)
[2023-06-12 17:10] LABS: ABG Base Excess 4.2 mmol/L; ABG HCO3 30 mmol/L (21-25); ABG Oxygen Saturation 96.5 % (94-97); ABG PCO2 55 mmHg (35-45); ABG PH 7.34 (7.35-7.45); ABG PO2 80 mmHg (83-108); ABG TCO2 32 mmol/L (19-24); Allen Test Performed? Yes
--- NOTE | 2023-06-12 17:22 | P.CNPUL ---
History of Present Illness Consult date: 06/12/23 Reason for consult: COPD History of present illness: I was asked to evaluate this patient for a preoperative pulmonary clearance. The patient will be taken to the operating room today. The patient has an acute sigmoid diverticulitis with failed outpatient treatment. The patient continued to complain of abdominal pain. She was having no improvement in terms of her pain. She continued to have pain across her lower abdomen. The plan was to take this patient to the operating room for surgical exploration. CAT scan of the abdomen and pelvis that was done yesterday reported similar finding of the sigmoid colon consistent with acute diverticulitis and the patient small bilateral pleural effusions developed along with compressive atelectatic changes in lung bases. In terms of her pulmonary status, the patient is known to have COPD. The patient also has a pulmonary nodule in the right middle lobe area near the minor fissure measuring about 10 mm in size which has been progressively increasing since 2019 and additional right upper lobe pulmonary nodule measuring 13 x 6 mm in size. There is also a right upper lobe chronic cystic change which has been present on previous CAT scans of the chest. No evidence of any airspace disease or consolidation. The patient also has a T7 vertebral compression fractures. At the time of my evaluation, the patient was on 4 L of oxygen by nasal cannula with a pulse ox 92%. She was having some respiratory distress at rest. According to the , the patient has been active and the patient has been able to walk half to 1 block without having any major difficulties. She has been doing activities of day-to-day life yet but overall exercise capacity has been quite limited due to her COPD. I have evaluated this patient in the past and the patient was seen in a previous hospitalization back in December 2022 for an acute COPD exacerbation. At that time, the chronic cystic changes along with the scarring in the right upper lobe was also noted in addition to the pulmonary nodules that were discussed. The patient is a chronic smoker. Labs show a WBC count of 10.9 with hemoglobin 11.3 and platelet count of 485. Normal renal function. Electrolytes are normal. Lactic acid level is at 0.5. The blood cultures showing gram-positive bacillus in the blood, rule out an anaerobic infection. This was however seen and only 1 out of 2 blood cultures. The patient is currently on Zosyn and infectious disease also on the case. Review of Systems Eyes: denies as per HPI, denies blurred vision, denies bulging eye, denies decre ased vision, denies diplopia, denies discharge, denies dry eye, denies irritation, denies itching, denies pain, denies photophobia, denies loss of peripheral vision, denies loss of vision, denies tunnel vision/blind spots Ears: deny: decreased hearing, ear discharge, earache, tinnitus Ears, nose, mouth and throat: Reports as per HPI Breasts: absent: as per HPI, change in shape, gynecomastia, masses, nipple discharge, pain, skin changes, swelling Cardiovascular: Reports chest pain (Atypical), Reports decreased exercise tolerance, Reports dyspnea on exertion, the patient also has shortness of breath even at rest. Respiratory: Reports cough, Reports dyspnea Gastrointestinal: Reports as per HPI, lower abdominal pain related to diverticulitis. Genitourinary: Reports as per HPI Menstruation: Reports as per HPI Musculoskeletal: Reports as per HPI Musculoskeletal: absent: ankle pain, ankle stiffness, ankle swelling Integumentary: Reports as per HPI Neurological: Reports as per HPI Psychiatric: Reports as per HPI Endocrine: Reports as per HPI Hematologic/Lymphatic: Reports as per HPI Allergic/Immunologic: Reports as per HPI Past Medical History Past Medical History: Chest Pain / Angina, COPD, GERD/Reflux, Hearing Disorder / Deafness Additional Past Medical History / Comment(s): Chronic bronchitis, sinus tachycardia, chronic back pain, migraines, bilateral hearing aid use, bilateral tinnitis. History of Any Multi-Drug Resistant Organisms: None Reported Past Surgical History: Appendectomy, Heart Catheterization, Hysterectomy, Tubal Ligation Additional Past Surgical History / Comment(s): Loop recorder inserted and later removed. Past Anesthesia/Blood Transfusion Reactions: No Reported Reaction Past Psychological History: Anxiety, Depression Smoking Status: Former smoker Past Alcohol Use History: None Reported Past Drug Use History: None Reported - Past Family History Brother(s) Family Medical History: Coronary Artery Disease (CAD), Myocardial Infarction ([place] ) Additional Family Medical History / Comment(s): [place] in his early 40s, had pacemaker. Sister(s) Family Medical History: Mitral Valve Prolapse (MVP) Father Additional Family Medical History / Comment(s): "Post Op MRSA infection- from complications of that." Mother Family Medical History: Cancer Additional Family Medical History / Comment(s): Lung cancer. Medications and Allergies Home Medications Medication Instructions Recorded Confirmed Type Budesonide-Formot 160-4.5 Mcg 2 puff INHALATION RT-BID #1 unit 12/01/17 06/08/23 Rx [Symbicort 160-4.5 Mcg Inhaler] Ipratropium-Albuterol Nebulize 3 ml INHALATION RT-TID PRN 11/03/22 06/08/23 History [Duoneb 0.5 mg-3 mg/3 ml Soln] amLODIPine [Norvasc] 5 mg PO DAILY 12/26/22 06/08/23 History lamoTRIgine [LaMICtal] 100 mg PO BID 12/26/22 06/08/23 History Aspirin 81 mg PO DAILY 90 Days #90 tab 01/11/23 06/08/23 Rx ALPRAZolam [Xanax] 0.5 mg PO BID 02/08/23 06/08/23 History Montelukast [Singulair] 10 mg PO DAILY 05/11/23 06/08/23 History Amoxic-Pot Clav 875-125Mg 1 tab PO Q12HR #20 tab 06/06/23 06/08/23 Rx [Augmentin 875-125] Fexofenadine HCl [Valeri Allergy] 180 mg PO DAILY 06/06/23 06/08/23 History HYDROcodone/APAP 7.5-325MG [[place] 1 tab PO BID PRN 06/06/23 06/08/23 History 7.5-325] Tiotropium 2.5 Mcg/Puff [Spiriva 2 puff INHALATION RT-BID 06/06/23 06/08/23 History Respimat 2.5 Mcg] Allergies Allergy/AdvReac Type Severity Reaction Status Date / Time dust AdvReac Dyspnea Uncoded 06/08/23 13:48 Physical Exam Vitals: Vital Signs Temp Pulse Pulse Resp BP Pulse Ox 06/12/23 09:17 108 H 06/12/23 09:02 108 H 06/12/23 08:15 101 H 06/12/23 07:37 98.7 F 101 H 20 145/79 97 06/12/23 02:26 98.9 F 104 H 20 119/78 97 06/11/23 19:12 99.1 F 103 H 20 126/80 98 06/11/23 15:24 104 H 06/11/23 15:15 101 H 06/11/23 14:00 99.1 F 105 H 18 104/67 89 L Intake and Output 06/11/23 06/12/23 06/12/23 22:59 06:59 14:59 Other: Voiding Method Toilet Toilet # Voids 1 4 General appearance,, comfortable currently on 40 of oxygen by nasal cannula with mild degree of respiratory distress even at rest. Head exam was generally normal. There was no scleral icterus or corneal arcus. Mucous membranes were moist. Neck was supple and without jugular venous distension, thyromegaly, or carotid bruits. Carotids were easily palpable bilaterally. There was no adenopathy. Lung sounds are with diminished bilaterally along with few scattered expiratory wheeze Cardiac exam revealed the PMI to be normally situated and sized. The rhythm was regular and no extrasystoles were noted during several minutes of auscultation. The first and second heart sounds were normal and physiologic splitting of the second heart sound was noted. There were no murmurs, rubs, clicks, or gallops. Examination of the abdomen shows some tenderness in the lower abdominal area. Bowel sounds are hypoactive. No rebound tenderness or guarding at this point in time. Examination of the extremities revealed easily palpable radial, femoral and pedal pulses. There was no cyanosis, clubbing or edema. Examination of the skin revealed no evidence of significant rashes, suspicious appearing nevi or other concerning lesions. Neurologically, slightly encephalopathic. Poor historian. Moving all 4 extremities without limitation. There is generalized global weakness. Results - Laboratory Findings CBC and BMP: 06/12/23 05:50 06/12/23 05:50 ABG WBC 10.96 X 10*3/uL (4.50-10.00) H 06/12/23 05:50 RBC 3.66 X 10*6/uL (4.10-5.20) L 06/12/23 05:50 Hgb 11.3 g/dL (12.0-15.0) L 06/12/23 05:50 Hct 36.0 % (37.2-46.3) L 06/12/23 05:50 MCV 98.4 FL (80.0-97.0) H 06/12/23 05:50 MCH 30.9 pg (27.0-32.0) 06/12/23 05:50 MCHC 31.4 g/dL (32.0-37.0) L 06/12/23 05:50 RDW 13.6 % (11.5-14.5) 06/12/23 05:50 Plt Count 485 X 10*3/uL (140-440) H 06/12/23 05:50 Estimated Plt Count Adequate (Adequate) 06/10/23 03:36 MPV 9.2 FL (9.5-12.2) L 06/12/23 05:50 Immature Gran % (Auto) 0.60 % 06/12/23 05:50 Absolute Nucleated RBC 0 % 06/12/23 05:50 Neutrophils % 73.8 % 06/12/23 05:50 Lymphocytes % 10.8 % 06/12/23 05:50 Monocytes % 12.4 % 06/12/23 05:50 Eosinophils % 1.6 % 06/12/23 05:50 Basophils % 0.8 % 06/12/23 05:50 Immature Gran # 0.07 X 10*3/uL (0.00-0.04) H 06/12/23 05:50 Neutrophils # 8.09 X 10*3/uL (1.80-7.70) H 06/12/23 05:50 Lymphocytes # 1.18 X 10*3/uL (0.90-5.00) 06/12/23 05:50 Monocytes # 1.36 X 10*3/uL (0.20-1.00) H 06/12/23 05:50 Eosinophils # 0.17 X 10*3/uL (0.04-0.35) 06/12/23 05:50 Basophils # 0.09 X 10*3/uL (0.00-0.10) 06/12/23 05:50 NRBC/100 WBC Diff 0 X 10*3/uL (0.00-0.01) 06/12/23 05:50 Manual Slide Review Morph Only 06/10/23 03:36 RBC Morphology Normal (Normal) 06/10/23 03:36 ESR 41 mm/Hr (0-30) H 06/12/23 05:50 Sodium 135 mmol/L (135-145) 06/12/23 05:50 Potassium 4.0 mmol/L (3.5-5.5) 06/12/23 05:50 Chloride 96 mmol/L (96-109) 06/12/23 05:50 Carbon Dioxide 26.8 mmol/L (21.6-31.8) 06/12/23 05:50 Anion Gap 12.20 mmol/L (4.00-12.00) H 06/12/23 05:50 BUN <3.5 mg/dL (9.0-27.0) L 06/12/23 05:50 Creatinine 0.4 mg/dL (0.6-1.5) L 06/12/23 05:50 Est GFR (CKD-EPI) 111 (>=60) 06/12/23 05:50 Est GFR (CKD-EPI)AfAm >90 (>60 ml/min/1.73 sqM) 06/08/23 12:39 Est GFR (CKD-EPI)NonAf >90 (>60 ml/min/1.73 sqM) 06/08/23 12:39 BUN/Creatinine Ratio <8.75 Ratio (12.00-20.00) L 06/12/23 05:50 Glucose 93 mg/dL (70-110) 06/12/23 05:50 Plasma Lactic Acid Dio 0.9 mmol/L (0.7-2.0) 06/08/23 12:39 Calcium 8.8 mg/dL (8.7-10.3) 06/12/23 05:50 Magnesium 1.9 mg/dL (1.6-2.3) 06/08/23 12:39 Total Bilirubin 0.4 mg/dL (0.3-1.2) 06/12/23 05:50 AST 15 U/L (13-35) 06/12/23 05:50 ALT 13 U/L (8-44) 06/12/23 05:50 Alkaline Phosphatase 100 U/L (41-126) 06/12/23 05:50 C-Reactive Protein 23.90 mg/dL (0.00-0.80) H 06/12/23 05:50 Total Protein 5.2 g/dL (6.2-8.2) L 06/12/23 05:50 Albumin 3.2 g/dL (3.8-4.9) L 06/12/23 05:50 Globulin 2.0 g/dL (1.6-3.3) 06/12/23 05:50 Albumin/Globulin Ratio 1.60 Ratio (1.60-3.17) 06/12/23 05:50 Amylase 50 U/L (30-110) 06/08/23 12:39 Lipase 18 U/L (23-300) L 06/08/23 12:39 Urine Color Colorless 06/08/23 17:21 Urine Appearance Clear (Clear) 06/08/23 17:21 Urine pH 6.5 (5.0-8.0) 06/08/23 17:21 Ur Specific [place] >1.050 (1.001-1.035) H 06/08/23 17:21 Urine Protein Negative (Negative) 06/08/23 17:21 Urine Glucose (UA) Negative (Negative) 06/08/23 17:21 Urine Ketones 1+ (Negative) H 06/08/23 17:21 Urine Blood Trace (Negative) H 06/08/23 17:21 Urine Nitrite Negative (Negative) 06/08/23 17:21 Urine Bilirubin Negative (Negative) 06/08/23 17:21 Urine Urobilinogen <2.0 mg/dL (<2.0) 06/08/23 17:21 Ur Leukocyte Esterase Negative (Negative) 06/08/23 17:21 Urine RBC 2 /hpf (0-5) 06/08/23 17:21 Urine WBC 1 /hpf (0-5) 06/08/23 17:21 Ur Squamous Epith Cells 4 /hpf (0-4) 06/08/23 17:21 Abnormal lab findings: Abnormal Labs 06/08/23 06/08/23 06/08/23 12:39 12:39 17:21 WBC 16.0 H RBC Hgb Hct 46.3 H MCV MCHC Plt Count 457 H MPV Immature Gran # Neutrophils # 13.6 H Monocytes # 1.1 H Eosinophils # ESR Sodium 130 L Chloride 92 L Anion Gap BUN 6 L Creatinine 0.45 L BUN/Creatinine Ratio Glucose 117 H Calcium Alkaline Phosphatase 144 H C-Reactive Protein Total Protein Albumin Lipase 18 L Ur Specific [place] >1.050 H Urine Ketones 1+ H Urine Blood Trace H 06/10/23 06/11/23 06/11/23 03:36 06:02 06:02 WBC 13.69 H 13.13 H RBC 3.50 L 3.56 L Hgb 11.1 L 11.0 L Hct 35.1 L 34.8 L MCV 100.3 H 97.8 H MCHC 31.6 L 31.6 L Plt Count MPV 9.3 L Immature Gran # 0.06 H 0.06 H Neutrophils # 10.71 H 10.14 H Monocytes # 1.72 H 1.77 H Eosinophils # 0.02 L ESR Sodium 132 L Chloride Anion Gap BUN <3.5 L Creatinine 0.5 L BUN/Creatinine Ratio <7.00 L Glucose Calcium 8.6 L Alkaline Phosphatase C-Reactive Protein Total Protein 5.4 L Albumin 3.5 L Lipase Ur Specific [place] Urine Ketones Urine Blood 06/12/23 06/12/23 05:50 05:50 WBC 10.96 H RBC 3.66 L Hgb 11.3 L Hct 36.0 L MCV 98.4 H MCHC 31.4 L Plt Count 485 H MPV 9.2 L Immature Gran # 0.07 H Neutrophils # 8.09 H Monocytes # 1.36 H Eosinophils # ESR 41 H Sodium Chloride Anion Gap 12.20 H BUN <3.5 L Creatinine 0.4 L BUN/Creatinine Ratio <8.75 L Glucose Calcium Alkaline Phosphatase C-Reactive Protein 23.90 H Total Protein 5.2 L Albumin 3.2 L Lipase Ur Specific [place] Urine Ketones Urine Blood - Diagnostic Findings Chest x-ray: image reviewed CT scan - chest: image reviewed Assessment and Plan Plan: Acute sigmoid diverticulitis, being taken for surgical exploration. Patient is currently on IV Zosyn. White cell count is not elevated. Abdominal pain secondary to above Gram-positive bacillus in the blood, rule out anaerobic septicemia, currently on IV Zosyn Chronic COPD exacerbation with shortness of breath. The patient is known to have chronic COPD maintain on accommodation Symbicort and Spiriva and albuterol updrafts on outpatient basis History of a right upper lobe cavitary cystic changes along with an enlarging pulmonary nodule which seems to be suspicious for malignancy. This can be worked up on outpatient basis at the later stage. Right middle lobe pulmonary nodule being monitored on outpatient basis History of smoking History of smoking Acid reflux Sigmoid diverticulosis Left adnexal mass measuring 5.7 cm in size identified on a CAT scan of the abdomen and pelvis that was done on 04/12/2022, MRI was followed on 06/25/2022 showing a cystic lesion versus multiple simple cysts versus cystic neoplasm. Plan This patient is considered to be at risk of developing postoperative pulmonary complications. I do not have a baseline FEV1 to measure objectively the extent of the obstructive airway disease that she has. Nevertheless, her functionality has been affected and the patient has chronic exertional dyspnea with limited exercise capacity which essentially puts her at a higher risk of developing postoperative pulmonary complications. This was discussed with the surgical team. I reviewed the CAT scan of the chest. There are some chronic cystic changes in the right upper lobe. The same time the patient has a rightt middle lobe pulmonary nodule measuring 10 mm in size. Outpatient PET scan will be done for dose once the patient is fully recovered from her abdominal workup and s urgery. Continue bronchodilators. Continue Symbicort. Incentive spirometer. IV fluids. Will follow.
[2023-06-12] MEDS ORDERED: KETAMINE HCL IN 0.9 % NACL 50 MG/5 ML SYRINGE ONE (17:24)
[2023-06-12] MEDS ORDERED: SUCCINYLCHOLINE CHLORIDE 200 MG/10 ML VIAL IV ONE (17:24)
[2023-06-12] MEDS ORDERED: LIDOCAINE 1% INJ 10MG/ML (20 ML MDV) ONE (17:24)
[2023-06-12] MEDS ORDERED: ROCURONIUM 10 MG/ML (5 ML VIAL) IV ONE (17:24)
[2023-06-12] MEDS ORDERED: fentaNYL (PF) 50 MCG/ML 2 ML AMP ONE (17:24)
[2023-06-12] MEDS ORDERED: ETOMIDATE 2 MG/ML 10 ML VIAL ONE (17:24)
[2023-06-12] MEDS: LACTATED RINGERS 1,000 ML IV ONE (18:27)
[2023-06-12] MEDS ORDERED: NALOXONE 0.4 MG/ML 1 ML VIAL IV PRN (18:37)
[2023-06-12] MEDS ORDERED: ONDANSETRON 4 MG/2 ML VIAL IVP PRN (18:37)
--- NOTE | 2023-06-12 18:37 | P.OP ---
Date of Procedure: 06/12/23 Preoperative Diagnosis: diverticulitis Postoperative Diagnosis: diverticulitis causing colonic obstruction Procedure(s) Performed: exposure laparotomy Sigmoid colectomy with end colostomy Partial omentectomy Anesthesia: AUBREY Surgeon: Juan José Joyner Estimated Blood Loss (ml): 10 Pathology: other (sigmoid colon, omentum) Condition: stable Disposition: PACU Description of Procedure: patient's placed on the operative table in the supine position. She received general endotracheal tube anesthesia. Her abdomen was prepped and draped in usual sterile fashion. The skin was incised in the midline. Using left cautery the abdominal wall was divided. And the Bookwalterwound. There appeared to be evidence of dilated small bowel and colon up to the level of the sigmoid colon. There was an inflammatory mass causing a colonic obstruction sigmoid colon. The colon was then transected just proximal to the sigmoid colon. And then using the LigaSure the mesentery the bowel was divided. The mesentery the bowel was divided beyond the mass. And then the rectum was transected with the contour stapler. the omentum was adherent to the colon. This was transected. The left omentum was left on the colon. Specimen sent to pathology. The mass appeared to be a plantar mass related to diverticulitis. At this point a suitable spot for the colostomy was brought out in the left lower quadrant. The abdomen was irrigated there is no bleeding seen. the fascia is closed loop #1 PDS suture. The skin was then closed loreta. The colostomy then matured with 3-0 Vicryl suture. Patient tolerated procedure well. She was sent back to the recovery room intubated in order to be transferred to the ICU.
--- NOTE | 2023-06-12 18:55 | P.ANPRN ---
Procedure Note - Anesthesia - Invasive Line Left Arterial Line Time Out Performed: Yes Date of Procedure: 06/12/23 Time of Procedure: 16:41 Location of Patient: PreOp Preparation: Sterile Prep, Sterile Dressing Arterial Line Location: Briachial Ultrasound Used: No Purpose - Visualization and Identification of Vasculature: No Image Stored and Saved: No Narrative: Invasive line placement per sterile protocol utilized.
--- NOTE | 2023-06-12 19:23 | XR ---
EXAMINATION TYPE: XR chest 1V portable DATE OF EXAM: 06/12/2023 7:13 PM CLINICAL INDICATION:Female, 63 years old with history of vented; [facility] COMPARISON: Chest radiographs from 03/02/2023. TECHNIQUE: XR chest 1V portable Frontal view of the chest. FINDINGS: Lungs/Pleura: Right midlung streaky atelectasis/scarring similar prior. There is no evidence of pleur al effusion, focal consolidation, or pneumothorax. Pulmonary vascularity: Unremarkable. Heart/mediastinum: Cardiomediastinal silhouette is unremarkable. Musculoskeletal: No acute osseous pathology. Other findings: None Lines/Tubes: Endotracheal tube with distal tip just above the level of the aortic arch IMPRESSION: 1. No acute cardiopulmonary disease/process. 2. Endotracheal tube in satisfactory position.
[2023-06-12 20:24] LABS: Glucose,Whole Blood 123 mg/dL (70-110)
[2023-06-12] MEDS: LACTATED RINGERS 1,000 ML IV SCH (20:35)
--- NOTE | 2023-06-12 20:56 | PN ---
PROGRESS NOTE SUBJECTIVE: The patient is a 63-year-old white female, remains on DuoNeb, Norvasc for hypertension, azithromycin for antibiotics, Zosyn for antibiotics. The patient was treated for diverticulitis. At this time, she is more confused, she has a worsening colon, surgery is going to take her to the OR for surgical repair of her colostomy for severe diverticulitis. Prognosis is guarded. Continue current treatment. Her white count is elevated at 10 down from 13, hemoglobin 11.3. ABG shows pCO2 55, PO2 80 with possibly cut down on her sedation and pain medications at this time. She is currently being treated for her stable medicines for COPD. Her breathing is worse, will possibly do a CAT scan of the lungs and see what is going on there. PROGNOSIS: Guarded. MMJEFFL / DARRYLN: [id number] /
--- NOTE | 2023-06-12 21:08 | XR ---
EXAMINATION TYPE: XR chest 1V portable DATE OF EXAM: 06/12/2023 8:45 PM CLINICAL INDICATION:Female, 63 years old with history of Tube placement; [facility] COMPARISON: Chest radiographs from same day. TECHNIQUE: XR chest 1V portable Frontal view of the chest. FINDINGS: Lungs/Pleura: Right upper lung streaky airspace opacities. There is no evidence of pleural effusion, focal consolidation, or pneumothorax. Pulmonary vascularity: Unremarkable. Heart/mediastinum: Cardiomediastinal silhouette is unremarkable. Musculoskeletal: No acute osseous pathology. Other findings: None Lines/Tubes: Endotracheal tube with distal tip at the level of the aortic arch Nasogastric tube with its distal tip and side-port projecting under the diaphragm. IMPRESSION: Support tubes in appropriate position.
[2023-06-12 21:19] LABS: ABG Base Excess -0.2 mmol/L; ABG HCO3 26 mmol/L (21-25); ABG Oxygen Saturation 98.3 % (94-97); ABG PCO2 54 mmHg (35-45); ABG PH 7.29 (7.35-7.45); ABG PO2 118 mmHg (83-108); ABG TCO2 28 mmol/L (19-24); Allen Test Performed? Yes
[2023-06-12] MEDS: CHLORHEXIDINE GLUCONATE 15 ML CUP MUCOUS MEM SCH (22:09)
[2023-06-13] MEDS: NOREPINEPHRINE 4 MG in SODIUM CHLORIDE 0.9% 250 ML IV SCH
[2023-06-13 05:17] LABS: ALT 13 U/L (4-34); AST 20 U/L (14-36); African American GFR (CKD) >90 (>60 ml/min/1.73 sqM); Albumin 2.4 g/dL (3.5-5.0); Alkaline Phosphatase 98 U/L (38-126); Anion Gap 9 mmol/L; Blood Urea Nitrogen 3 mg/dL (7-17); Calcium 7.8 mg/dL (8.4-10.2); Carbon Dioxide 23 mmol/L (22-30); Chloride 100 mmol/L (98-107); Glucose 113 mg/dL (74-99); Non-African American GFR(CKD) >90 (>60 ml/min/1.73 sqM); Sodium 132 mmol/L (137-145); Total Bilirubin 0.5 mg/dL (0.2-1.3); Total Protein 4.5 g/dL (6.3-8.2)
[2023-06-13 05:22] LABS: Basophils % (A) 0 %; Eosinophils % (A) 0 %; HCT 37.4 % (34.0-46.0); Hypochromasia Slight; Lymphocytes # (A) 0.7 k/uL (1.0-4.8); Lymphocytes % (A) 5 %; MCH 30.7 pg (25.0-35.0); MCHC 30.6 g/dL (31.0-37.0); MCV 100.4 fL (80.0-100.0); Monocytes # (A) 1.2 k/uL (0-1.0); Monocytes % (A) 9 %; Neutrophils # (A) 11.4 k/uL (1.3-7.7); Neutrophils % (A) 85 %; Platelet Count 549 k/uL (150-450); RBC 3.73 m/uL (3.80-5.40); RDW 13.9 % (11.5-15.5); WBC 13.4 k/uL (3.8-10.6)
[2023-06-13 05:33] LABS: ABG HCO3 24 mmol/L (21-25); ABG Oxygen Saturation 96.4 % (94-97); ABG PCO2 48 mmHg (35-45); ABG PH 7.31 (7.35-7.45); ABG PO2 79 mmHg (83-108); ABG TCO2 26 mmol/L (19-24); Allen Test Performed? Yes
[2023-06-13 05:38] LABS: HGB 11.5 gm/dL (11.4-16.0)
--- NOTE | 2023-06-13 07:56 | XR ---
EXAMINATION TYPE: XR chest 1V portable DATE OF EXAM: 06/13/2023 COMPARISON: 06/12/2023 HISTORY: Tube placement TECHNIQUE: Single frontal view of the chest is obtained. FINDINGS: Bilateral consolidation with small effusion. Linear atelectasis right upper lobe. Underlyi ng emphysema. Volume loss involving the right hemithorax. ET and NG tubes stable. No sizable pneumoth orax. NG tube appears in good position. IMPRESSION: 1. Bilateral areas of consolidation and pleural effusion stable superimposed on a background of COPD.
[2023-06-13] MEDS: ENOXAPARIN 40 MG/0.4 ML SYRINGE SQ SCH (08:51)
[2023-06-13] MEDS: IPRATROPIUM-ALBUTEROL 3 ML NEB INHALATION PRN (11:19)
--- NOTE | 2023-06-13 11:53 | P.PN ---
Subjective Progress Note Date: 06/13/23 CHIEF COMPLAINT: Diverticulitis HISTORY OF PRESENT ILLNESS: Patient postop day #1 status post exploratory laparotomy, sigmoid colectomy with end colostomy and partial omentectomy for diverticulitis causing colonic obstruction. Patient currently in the ICU intubated and sedated. They are working on possibly extubating patient today. Afebrile. Mildly tachycardic. WBC is up at 13.4 Hgb 11.5 sodium 132 potassium 4.0 creatinine 0.28. Urine output adequate PHYSICAL EXAM: VITAL SIGNS: Reviewed. GENERAL: no acute distress. ABDOMEN: Soft. Mildly distended. Incision site clean dry and intact ostomy. Stoma beefy red. No output in ostomy bag. NEUROLOGIC: Intubated and sedated ASSESSMENT: 1. Acute severe sigmoid diverticulitis with failed outpatient therapy PLAN: -Vent management per pulmonary service -Change incisional dressing to Prevena wound vac -Keep patient n.p.o. -Continue pain management -Continue ICU management and supportive care Physician Drum Barker Operator note has been reviewed by physician. Signing provider agrees with the documented findings, assessment, and plan of care. Objective - Vital Signs Vital signs: Vital Signs Temp 99.0 F 06/13/23 08:00 Pulse 105 H 06/13/23 10:00 Resp 18 06/13/23 10:00 BP 104/69 06/13/23 07:00 Pulse Ox 96 06/13/23 10:00 FiO2 45 06/13/23 09:18 Intake & Output 06/12/23 06/13/23 06/13/23 18:59 06:59 18:59 Intake Total 1100 1877.848 306.303 Output Total 660 955 240 Balance 440 922.848 66.303 Weight 70.1 kg Intake: IV 1100 1730 256 Azithromycin 500 mg In 250 Sodium Chloride 0.9% 250 ml @ 250 mls/hr IVPB DAILY@2000 [facility] Rx#: [id number] Lactated Ringers 1,000 ml 1250 250 @ 125 mls/hr IV .Q8H [facility] Rx#:[id number] Piperacillin-Tazobactam 3 200 .375 gm In Sodium Chloride 0.9% 100 ml @ 25 mls/hr IVPB Q8HR [facility] Rx# :[id number] pressure bag 30 6 Intake, IV Titration 147.848 50.303 Amount propofoL 1,000 mg In 147.848 50.303 Empty Bag 1 bag @ 15 MCG/ KG/MIN 5.511 mls/hr IV . [facility] Rx#:[id number] Output: Urine 650 955 240 Estimated Blood Loss 10 Other: Voiding Method Toilet Indwelling Catheter Indwelling Catheter # Voids 0 ABP, PAP, CO, CI - Last Documented Arterial Blood Pressure 128/53 - Labs CBC & Chem 7: 06/13/23 04:37 06/13/23 04:37 Labs: Abnormal Lab Results - Last 24 Hours (Table) 06/12/23 06/12/23 06/12/23 Range/Units 15:47 15:56 17:00 WBC (3.8-10.6) k/uL RBC (3.80-5.40) m/uL MCV (80.0-100.0) fL MCHC (31.0-37.0) g/dL Plt Count (150-450) k/uL Neutrophils # (1.3-7.7) k/uL Lymphocytes # (1.0-4.8) k/uL Monocytes # (0-1.0) k/uL ABG pH 7.34 L (7.35-7.45) ABG pCO2 55 H (35-45) mmHg ABG pO2 80 L (83-108) mmHg ABG HCO3 30 H (21-25) mmol/L ABG Total CO2 32 H (19-24) mmol/L ABG O2 Saturation (94-97) % Sodium (137-145) mmol/L BUN (7-17) mg/dL Creatinine (0.52-1.04) mg/dL Glucose (74-99) mg/dL POC Glucose (mg/dL) 114 H (70-110) mg/dL Plasma Lactic Acid Dio 0.5 L (0.7-2.0) mmol/L Calcium (8.4-10.2) mg/dL Total Protein (6.3-8.2) g/dL Albumin (3.5-5.0) g/dL 06/12/23 06/12/23 06/13/23 Range/Units 20:23 21:15 04:37 WBC 13.4 H (3.8-10.6) k/uL RBC 3.73 L (3.80-5.40) m/uL MCV 100.4 H (80.0-100.0) fL MCHC 30.6 L (31.0-37.0) g/dL Plt Count 549 H (150-450) k/uL Neutrophils # 11.4 H (1.3-7.7) k/uL Lymphocytes # 0.7 L (1.0-4.8) k/uL Monocytes # 1.2 H (0-1.0) k/uL ABG pH 7.29 L (7.35-7.45) ABG pCO2 54 H (35-45) mmHg ABG pO2 118 H (83-108) mmHg ABG HCO3 26 H (21-25) mmol/L ABG Total CO2 28 H (19-24) mmol/L ABG O2 Saturation 98.3 H (94-97) % Sodium (137-145) mmol/L BUN (7-17) mg/dL Creatinine (0.52-1.04) mg/dL Glucose (74-99) mg/dL POC Glucose (mg/dL) 123 H (70-110) mg/dL Plasma Lactic Acid Dio (0.7-2.0) mmol/L Calcium (8.4-10.2) mg/dL Total Protein (6.3-8.2) g/dL Albumin (3.5-5.0) g/dL 06/13/23 06/13/23 Range/Units 04:37 05:45 WBC (3.8-10.6) k/uL RBC (3.80-5.40) m/uL MCV (80.0-100.0) fL MCHC (31.0-37.0) g/dL Plt Count (150-450) k/uL Neutrophils # (1.3-7.7) k/uL Lymphocytes # (1.0-4.8) k/uL Monocytes # (0-1.0) k/uL ABG pH 7.31 L (7.35-7.45) ABG pCO2 48 H (35-45) mmHg ABG pO2 79 L (83-108) mmHg ABG HCO3 (21-25) mmol/L ABG Total CO2 26 H (19-24) mmol/L ABG O2 Saturation (94-97) % Sodium 132 L (137-145) mmol/L BUN 3 L (7-17) mg/dL Creatinine 0.28 L (0.52-1.04) mg/dL Glucose 113 H (74-99) mg/dL POC Glucose (mg/dL) (70-110) mg/dL Plasma Lactic Acid Dio (0.7-2.0) mmol/L Calcium 7.8 L (8.4-10.2) mg/dL Total Protein 4.5 L (6.3-8.2) g/dL Albumin 2.4 L (3.5-5.0) g/dL
[2023-06-13 12:47] LABS: Glucose,Whole Blood 120 mg/dL (70-110)
[2023-06-13 12:48] LABS: ABG Base Excess 0.9 mmol/L; ABG HCO3 27 mmol/L (21-25); ABG Oxygen Saturation 96.1 % (94-97); ABG PCO2 51 mmHg (35-45); ABG PH 7.33 (7.35-7.45); ABG PO2 79 mmHg (83-108); ABG TCO2 28 mmol/L (19-24); Allen Test Performed? Yes
--- NOTE | 2023-06-13 13:30 | P.PN ---
Subjective Progress Note Date: 06/13/23 I was asked to evaluate this patient for a preoperative pulmonary clearance. The patient will be taken to the operating room today. The patient has an acute sigmoid diverticulitis with failed outpatient treatment. The patient continued to complain of abdominal pain. She was having no improvement in terms of her pain. She continued to have pain across her lower abdomen. The plan was to take this patient to the operating room for surgical exploration. CAT scan of the abdomen and pelvis that was done yesterday reported similar finding of the sigmoid colon consistent with acute diverticulitis and the patient small bilateral pleural effusions developed along with compressive atelectatic changes in lung bases. In terms of her pulmonary status, the patient is known to have COPD. The patient also has a pulmonary nodule in the right middle lobe area near the minor fissure measuring about 10 mm in size which has been progressively increasing since 2019 and additional right upper lobe pulmonary nodule measuring 13 x 6 mm in size. There is also a right upper lobe chronic cystic change which has been present on previous CAT scans of the chest. No evidence of any airspace disease or consolidation. The patient also has a T7 vertebral compression fractures. At the time of my evaluation, the patient was on 4 L of oxygen by nasal cannula with a pulse ox 92%. She was having some respiratory distress at rest. According to the , the patient has been active and the patient has been able to walk half to 1 block without having any major difficulties. She has been doing activities of day-to-day life yet but overall exercise capacity has been quite limited due to her COPD. I have evaluated this patient in the past and the patient was seen in a previous hospitalization back in December 2022 for an acute COPD exacerbation. At that time, the chronic cystic changes along with the scarring in the right upper lobe was also noted in addition to the pulmonary nodules that were discussed. The patient is a chronic smoker. Labs show a WBC count of 10.9 with hemoglobin 11.3 and platelet count of 485. Normal renal function. Electrolytes are normal. Lactic acid level is at 0.5. The blood cultures showing gram-positive bacillus in the blood, rule out an anaerobic infection. This was however seen and only 1 out of 2 blood cultures. The patient is currently on Zosyn and infectious disease also on the case. 06/13/2023, the patient is being seen for a follow-up. The patient underwent an abdominal surgery yesterday and following that the patient was kept intubated on the mechanical ventilator. Surgery included sigmoid colectomy and end colostomy and partial omentectomy along with exploratory laparotomy. The patient was found to have a inflammatory mass causing colonic obstruction at the level of the sigmoid. The patient is currently postop day #1. She is on propofol running at 20 mcg/kg/min. She is also lactated Ringer at 125 cc an hour. She had a mechanical ventilator on assist-control mode with rate of 18, tidal volume of 400, FiO2 of 45% with a PEEP of 5. The blood gas showed a pH of 7.33 with a pCO2 of 51 and pO2 of 79. Chest x-ray from this morning shows no abnormalities in regards to the position of the orotracheal tube and NG tube. The patient has evidence of bilateral consolidation and small pleural effusions along with background COPD. The WBC count at 13.4 with a hemoglobin of 11.5 and a platelet count of 549. Sodium is at 132, BUN is at 30 with a creatinine of 0.28 and a potassium level is at 4. The patient remains on IV Zosyn. The patient on Lovenox for DVT prophylaxis. The patient is also on bronchodilators. She is on no pressors for now. Objective - Vital Signs Vital signs: Vital Signs Temp 99.0 F 06/13/23 08:00 Pulse 108 H 06/13/23 09:30 Resp 21 06/13/23 09:30 BP 104/69 06/13/23 07:00 Pulse Ox 95 06/13/23 09:30 FiO2 45 06/13/23 09:18 Intake & Output 06/12/23 06/13/23 06/13/23 18:59 06:59 18:59 Intake Total 1100 1877.848 256 Output Total 660 955 240 Balance 440 922.848 16 Weight 70.1 kg Intake: IV 1100 1730 256 Azithromycin 500 mg In 250 Sodium Chloride 0.9% 250 ml @ 250 mls/hr IVPB DAILY@1999 [facility] Rx#: [id number] Lactated Ringers 1,000 ml 1250 250 @ 125 mls/hr IV .Q8H [facility] Rx#:[id number] Piperacillin-Tazobactam 3 200 .375 gm In Sodium Chloride 0.9% 100 ml @ 25 mls/hr IVPB Q8HR [facility] Rx# :[id number] pressure bag 30 6 Intake, IV Titration 147.848 Amount propofoL 1,000 mg In 147.848 Empty Bag 1 bag @ 15 MCG/ KG/MIN 5.511 mls/hr IV . Q18H9M [facility] Rx#:[id number] Output: Urine 650 955 240 Estimated Blood Loss 10 Other: Voiding Method Toilet Indwelling Catheter Indwelling Catheter # Voids 0 ABP, PAP, CO, CI - Last Documented Arterial Blood Pressure 136/58 - Exam General appearance,, comfortable currently intubated on mechanical ventilator, sedated with propofol Head exam was generally normal. There was no scleral icterus or corneal arcus. Mucous membranes were moist. Neck was supple and without jugular venous distension, thyromegaly, or carotid bruits. Carotids were easily palpable bilaterally. There was no adenopathy. Lung sounds are with diminished bilaterally along with few scattered expiratory wheeze Cardiac exam revealed the PMI to be normally situated and sized. The rhythm was regular and no extrasystoles were noted during several minutes of auscultation. The first and second heart sounds were normal and physiologic splitting of the second heart sound was noted. There were no murmurs, rubs, clicks, or gallops. Examination of the abdomen is soft and the patient has a viable colostomy in the left lower quadrant area. No direct tenderness or moderate to guarding. No significant output in the colostomy bag. Bowel sounds are hypoactive. Examination of the extremities revealed easily palpable radial, femoral and pedal pulses. There was no cyanosis, clubbing or edema. Examination of the skin revealed no evidence of significant rashes, suspicious appearing nevi or other concerning lesions. Neurologically, patient is sedated. She is arousable. She is able to follow some simple commands while being on propofol. - Labs CBC & Chem 7: 06/13/23 04:37 06/13/23 04:37 Labs: Abnormal Lab Results - Last 24 Hours (Table) 06/12/23 06/12/23 06/12/23 Range/Units 05:50 15:47 15:56 WBC (3.8-10.6) k/uL RBC (3.80-5.40) m/uL MCV (80.0-100.0) fL MCHC (31.0-37.0) g/dL Plt Count (150-450) k/uL Neutrophils # (1.3-7.7) k/uL Lymphocytes # (1.0-4.8) k/uL Monocytes # (0-1.0) k/uL ESR 41 H (0-30) mm/Hr ABG pH (7.35-7.45) ABG pCO2 (35-45) mmHg ABG pO2 (83-108) mmHg ABG HCO3 (21-25) mmol/L ABG Total CO2 (19-24) mmol/L ABG O2 Saturation (94-97) % Sodium (137-145) mmol/L BUN (7-17) mg/dL Creatinine (0.52-1.04) mg/dL Glucose (74-99) mg/dL POC Glucose (mg/dL) 114 H (70-110) mg/dL Plasma Lactic Acid Dio 0.5 L (0.7-2.0) mmol/L Calcium (8.4-10.2) mg/dL Total Protein (6.3-8.2) g/dL Albumin (3.5-5.0) g/dL 06/12/23 06/12/23 06/12/23 Range/Units 17:00 20:23 21:15 WBC (3.8-10.6) k/uL RBC (3.80-5.40) m/uL MCV (80.0-100.0) fL MCHC (31.0-37.0) g/dL Plt Count (150-450) k/uL Neutrophils # (1.3-7.7) k/uL Lymphocytes # (1.0-4.8) k/uL Monocytes # (0-1.0) k/uL ESR (0-30) mm/Hr ABG pH 7.34 L 7.29 L (7.35-7.45) ABG pCO2 55 H 54 H (35-45) mmHg ABG pO2 80 L 118 H (83-108) mmHg ABG HCO3 30 H 26 H (21-25) mmol/L ABG Total CO2 32 H 28 H (19-24) mmol/L ABG O2 Saturation 98.3 H (94-97) % Sodium (137-145) mmol/L BUN (7-17) mg/dL Creatinine (0.52-1.04) mg/dL Glucose (74-99) mg/dL POC Glucose (mg/dL) 123 H (70-110) mg/dL Plasma Lactic Acid Dio (0.7-2.0) mmol/L Calcium (8.4-10.2) mg/dL Total Protein (6.3-8.2) g/dL Albumin (3.5-5.0) g/dL 06/13/23 06/13/23 06/13/23 Range/Units 04:37 04:37 05:45 WBC 13.4 H (3.8-10.6) k/uL RBC 3.73 L (3.80-5.40) m/uL MCV 100.4 H (80.0-100.0) fL MCHC 30.6 L (31.0-37.0) g/dL Plt Count 549 H (150-450) k/uL Neutrophils # 11.4 H (1.3-7.7) k/uL Lymphocytes # 0.7 L (1.0-4.8) k/uL Monocytes # 1.2 H (0-1.0) k/uL ESR (0-30) mm/Hr ABG pH 7.31 L (7.35-7.45) ABG pCO2 48 H (35-45) mmHg ABG pO2 79 L (83-108) mmHg ABG HCO3 (21-25) mmol/L ABG Total CO2 26 H (19-24) mmol/L ABG O2 Saturation (94-97) % Sodium 132 L (137-145) mmol/L BUN 3 L (7-17) mg/dL Creatinine 0.28 L (0.52-1.04) mg/dL Glucose 113 H (74-99) mg/dL POC Glucose (mg/dL) (70-110) mg/dL Plasma Lactic Acid Dio (0.7-2.0) mmol/L Calcium 7.8 L (8.4-10.2) mg/dL Total Protein 4.5 L (6.3-8.2) g/dL Albumin 2.4 L (3.5-5.0) g/dL Assessment and Plan Plan: Acute sigmoid diverticulitis, patient is status post exploratory laparotomy, partial omentectomy, sigmoid colectomy and end colostomy. The patient is postop day #1. Patient remains on IV Zosyn. Hemodynamically stable Acute hypoxic/hypercapnic nahid failure following abdominal surgery and the patient was kept intubated postop. Chest x-ray was noted and the patient has small bilateral pleural effusions and areas of consolidation specially in the right upper lobe which was seen on earlier CAT scan of the chest. Abdominal pain secondary to above, currently stable Gram-positive bacillus in the blood, rule out anaerobic septicemia, currently on IV Zosyn Chronic COPD exacerbation with shortness of breath. The patient is known to have chronic COPD maintain on accommodation Symbicort and Spiriva and albuterol updrafts on outpatient basis History of a right upper lobe cavitary cystic changes along with an enlarging pulmonary nodule which seems to be suspicious for malignancy. This can be worked up on outpatient basis at the later stage. Right middle lobe pulmonary nodule being monitored on outpatient basis History of smoking History of smoking Acid reflux Sigmoid diverticulosis Left adnexal mass measuring 5.7 cm in size identified on a CAT scan of the abdomen and pelvis that was done on 04/12/2022, MRI was followed on 06/25/2022 showing a cystic lesion versus multiple simple cysts versus cystic neoplasm. Plan Stop propofol Check weaning parameters Give the patient a spontaneous breathing trial if the patient is able to demonstrate adequate weaning parameters May potentially extubate to a BiPAP Continue bronchodilators Continue IV Zosyn Lovenox for DVT prophylaxis IV fluids Will continue to follow make further recommendations based on her progress. Critical care evaluation that was done in more than 30 minutes. This is working progress. Anticipate possible extubation today to a BiPAP and subsequent close monitoring. The patient was seen and evaluated in this evaluation was done more than 30 minutes. Time with Patient: Greater than 30
[2023-06-13 18:09] LABS: Glucose,Whole Blood 100 mg/dL (70-110)
[2023-06-14 00:29] LABS: Glucose,Whole Blood 108 mg/dL (70-110)
[2023-06-14 05:10] LABS: Glucose,Whole Blood 105 mg/dL (70-110)
[2023-06-14 05:19] LABS: Basophils % (A) 0 %; Eosinophils # (A) 0.1 k/uL (0-0.7); Eosinophils % (A) 1 %; HCT 34.5 % (34.0-46.0); HGB 10.7 gm/dL (11.4-16.0); Hypochromasia Slight; Lymphocytes # (A) 0.8 k/uL (1.0-4.8); Lymphocytes % (A) 8 %; MCH 30.8 pg (25.0-35.0); MCHC 30.9 g/dL (31.0-37.0); MCV 99.8 fL (80.0-100.0); Mean Platelet Volume 7.6; Monocytes # (A) 0.9 k/uL (0-1.0); Monocytes % (A) 8 %; Neutrophils # (A) 8.4 k/uL (1.3-7.7); Neutrophils % (A) 82 %; Platelet Count 562 k/uL (150-450); RBC 3.46 m/uL (3.80-5.40); RDW 13.9 % (11.5-15.5); WBC 10.3 k/uL (3.8-10.6)
[2023-06-14 05:36] LABS: African American GFR (CKD) >90 (>60 ml/min/1.73 sqM); Anion Gap 5 mmol/L; Blood Urea Nitrogen 2 mg/dL (7-17); Carbon Dioxide 29 mmol/L (22-30); Chloride 100 mmol/L (98-107); Glucose 109 mg/dL (74-99); Non-African American GFR(CKD) >90 (>60 ml/min/1.73 sqM); Potassium 3.5 mmol/L (3.5-5.1); Sodium 134 mmol/L (137-145)
[2023-06-14] MEDS ORDERED: Potassium Replacement Protocol 1 EACH MISC MISCELLANE PRN (06:53)
[2023-06-14] MEDS: POTASSIUM CHLORIDE 10 MEQ in WATER FOR INJECTION 1 100ML.BAG IVPB SCH ×3 (06:58→20:45)
--- NOTE | 2023-06-14 07:36 | XR ---
EXAMINATION TYPE: XR chest 1V portable DATE OF EXAM: 06/14/2023 COMPARISON: 06/13/2023 HISTORY: Tube placement TECHNIQUE: Single frontal view of the chest is obtained. FINDINGS: Bilateral consolidation with small effusion. Linear atelectasis right upper lobe. Underlyi ng emphysema. Volume loss involving the right hemithorax. ET and NG tubes have been removed. No sizab le pneumothorax. NG tube appears in good position. IMPRESSION: Bilateral infiltrate and pleural effusion. Correlate for mild CHF otherwise consider pne umonia.
[2023-06-14] MEDS: FUROSEMIDE 10 MG/ML 4 ML VIAL IV STA (09:52)
[2023-06-14 11:49] LABS: Glucose,Whole Blood 121 mg/dL (70-110)
--- NOTE | 2023-06-14 12:06 | P.PN ---
Subjective Progress Note Date: 06/14/23 I was asked to evaluate this patient for a preoperative pulmonary clearance. The patient will be taken to the operating room today. The patient has an acute sigmoid diverticulitis with failed outpatient treatment. The patient continued to complain of abdominal pain. She was having no improvement in terms of her pain. She continued to have pain across her lower abdomen. The plan was to take this patient to the operating room for surgical exploration. CAT scan of the abdomen and pelvis that was done yesterday reported similar finding of the sigmoid colon consistent with acute diverticulitis and the patient small bilateral pleural effusions developed along with compressive atelectatic changes in lung bases. In terms of her pulmonary status, the patient is known to have COPD. The patient also has a pulmonary nodule in the right middle lobe area near the minor fissure measuring about 10 mm in size which has been progressively increasing since 2019 and additional right upper lobe pulmonary nodule measuring 13 x 6 mm in size. There is also a right upper lobe chronic cystic change which has been present on previous CAT scans of the chest. No evidence of any airspace disease or consolidation. The patient also has a T7 vertebral compression fractures. At the time of my evaluation, the patient was on 4 L of oxygen by nasal cannula with a pulse ox 92%. She was having some respiratory distress at rest. According to the , the patient has been active and the patient has been able to walk half to 1 block without having any major difficulties. She has been doing activities of day-to-day life yet but overall exercise capacity has been quite limited due to her COPD. I have evaluated this patient in the past and the patient was seen in a previous hospitalization back in December 2022 for an acute COPD exacerbation. At that time, the chronic cystic changes along with the scarring in the right upper lobe was also noted in addition to the pulmonary nodules that were discussed. The patient is a chronic smoker. Labs show a WBC count of 10.9 with hemoglobin 11.3 and platelet count of 485. Normal renal function. Electrolytes are normal. Lactic acid level is at 0.5. The blood cultures showing gram-positive bacillus in the blood, rule out an anaerobic infection. This was however seen and only 1 out of 2 blood cultures. The patient is currently on Zosyn and infectious disease also on the case. 06/13/2023, the patient is being seen for a follow-up. The patient underwent an abdominal surgery yesterday and following that the patient was kept intubated on the mechanical ventilator. Surgery included sigmoid colectomy and end colostomy and partial omentectomy along with exploratory laparotomy. The patient was found to have a inflammatory mass causing colonic obstruction at the level of the sigmoid. The patient is currently postop day #1. She is on propofol running at 20 mcg/kg/min. She is also lactated Ringer at 125 cc an hour. She had a mechanical ventilator on assist-control mode with rate of 18, tidal volume of 400, FiO2 of 45% with a PEEP of 5. The blood gas showed a pH of 7.33 with a pCO2 of 51 and pO2 of 79. Chest x-ray from this morning shows no abnormalities in regards to the position of the orotracheal tube and NG tube. The patient has evidence of bilateral consolidation and small pleural effusions along with background COPD. The WBC count at 13.4 with a hemoglobin of 11.5 and a platelet count of 549. Sodium is at 132, BUN is at 30 with a creatinine of 0.28 and a potassium level is at 4. The patient remains on IV Zosyn. The patient on Lovenox for DVT prophylaxis. The patient is also on bronchodilators. She is on no pressors for now. On today's evaluation of 06/14/2023, the patient is being seen for a follow-up. The patient is extubated. She is a bit weak. She is currently complaining of abdominal pain. Colostomy site is nonfunctional at this point in time. No significant output. Bowel sounds remain hypoactive. The patient is seen Dilaudid for pain control. She remains on IV Zosyn. She is still on 5 L of oxygen by nasal cannula. Chest x-ray that was done today shows some increased atelectatic changes in the lungs patient has some limited bibasilar infiltrates and probably a component of fluid overload. The patient is on 5 L of oxygen by nasal cannula. She is off the BiPAP. She is on lactated Ringer which is running at 125 cc an hour. Fluid balance is +1.4 L over the past 24 hours. The blood work from today shows a WBC count of 10.3 with a hemoglobin 10.7 and a platelet count of 562. BUN is 8 with a creatinine of 0.33 and a sodium level is at 134. She is awake and alert and she is also communicating. She remains on IV Zosyn. No pressors for now. She is on Lovenox 40 mg subcu for DVT prophylaxis. In terms of her abdominal wound, the patient has a superficial wound VAC which is in place. No emesis at this point in time. No abdominal distention. She is on lactated Ringer at rate of 125 cc an hour. The patient remains NPO. Objective - Vital Signs Vital signs: Vital Signs Temp 99.1 F 06/14/23 04:00 Pulse 103 H 06/14/23 07:00 Resp 19 06/14/23 07:00 BP 99/62 06/14/23 05:30 Pulse Ox 92 L 06/14/23 07:00 FiO2 45 06/13/23 20:00 Intake & Output 06/13/23 06/14/23 06/14/23 18:59 06:59 18:59 Intake Total 4031.716 9612 128 Output Total 635 900 100 Balance 825.384 636 28 Weight 75.3 kg Intake: IV 1408 1536 128 Lactated Ringers 1,000 ml 1375 1500 125 @ 125 mls/hr IV .Q8H [facility] Rx#:[id number] pressure bag 33 36 3 Intake, IV Titration 52.384 Amount propofoL 1,000 mg In 52.384 Empty Bag 1 bag @ 15 MCG/ KG/MIN 5.511 mls/hr IV . Q18H9M [facility] Rx#:[id number] Output: Urine 635 900 100 Other: Voiding Method Indwelling Catheter Indwelling Catheter ABP, PAP, CO, CI - Last Documented Arterial Blood Pressure 135/56 - Exam General appearance,, comfortable currently 5 L of oxygen nasal cannula Head exam was generally normal. There was no scleral icterus or corneal arcus. Mucous membranes were moist. Neck was supple and without jugular venous distension, thyromegaly, or carotid bruits. Carotids were easily palpable bilaterally. There was no adenopathy. Lung sounds are with diminished bilaterally along with few scattered expiratory wheeze Cardiac exam revealed the PMI to be normally situated and sized. The rhythm was regular and no extrasystoles were noted during several minutes of auscultation. The first and second heart sounds were normal and physiologic splitting of the second heart sound was noted. There were no murmurs, rubs, clicks, or gallops. Examination of the abdomen is soft and the patient has a viable colostomy in the left lower quadrant area. No direct tenderness or moderate to guarding. No significant output in the colostomy bag. Bowel sounds are hypoactive. Examination of the extremities revealed easily palpable radial, femoral and pedal pulses. There was no cyanosis, clubbing or edema. Examination of the skin revealed no evidence of significant rashes, suspicious appearing nevi or other concerning lesions. Neurologically, patient is sedated. Awake and alert and following commands and answering questions appropriately. No focal neurological deficits. - Labs CBC & Chem 7: 06/14/23 05:10 06/14/23 05:10 Labs: Abnormal Lab Results - Last 24 Hours (Table) 06/13/23 06/13/23 06/14/23 Range/Units 12:42 12:45 05:10 RBC 3.46 L (3.80-5.40) m/uL Hgb 10.7 L (11.4-16.0) gm/dL MCHC 30.9 L (31.0-37.0) g/dL Plt Count 562 H (150-450) k/uL Neutrophils # 8.4 H (1.3-7.7) k/uL Lymphocytes # 0.8 L (1.0-4.8) k/uL ABG pH 7.33 L (7.35-7.45) ABG pCO2 51 H (35-45) mmHg ABG pO2 79 L (83-108) mmHg ABG HCO3 27 H (21-25) mmol/L ABG Total CO2 28 H (19-24) mmol/L Sodium (137-145) mmol/L BUN (7-17) mg/dL Creatinine (0.52-1.04) mg/dL Glucose (74-99) mg/dL POC Glucose (mg/dL) 120 H (70-110) mg/dL Calcium (8.4-10.2) mg/dL 06/14/23 Range/Units 05:10 RBC (3.80-5.40) m/uL Hgb (11.4-16.0) gm/dL MCHC (31.0-37.0) g/dL Plt Count (150-450) k/uL Neutrophils # (1.3-7.7) k/uL Lymphocytes # (1.0-4.8) k/uL ABG pH (7.35-7.45) ABG pCO2 (35-45) mmHg ABG pO2 (83-108) mmHg ABG HCO3 (21-25) mmol/L ABG Total CO2 (19-24) mmol/L Sodium 134 L (137-145) mmol/L BUN 2 L (7-17) mg/dL Creatinine 0.33 L (0.52-1.04) mg/dL Glucose 109 H (74-99) mg/dL POC Glucose (mg/dL) (70-110) mg/dL Calcium 8.0 L (8.4-10.2) mg/dL Microbiology - Last 24 Hours (Table) 06/08/23 14:13 Blood Culture - Final Blood 06/12/23 05:50 Blood Culture - Preliminary Blood Assessment and Plan Plan: Acute sigmoid diverticulitis, patient is status post exploratory laparotomy, partial omentectomy, sigmoid colectomy and end colostomy. The patient is postop day # 2. Patient remains on IV Zosyn. Hemodynamically stable. The patient still having some abdominal pain on Dilaudid. No functionality in the colostomy bag. Acute hypoxic/hypercapnic nahid failure following abdominal surgery and the patient was extubated to 5 L of oxygen nasal cannula, currently off the BiPAP. BiPAP was utilized as a bridging therapy postextubation. Abdominal pain secondary to above, currently stable Gram-positive bacillus in the blood, rule out anaerobic septicemia, currently on IV Zosyn Chronic COPD exacerbation with shortness of breath. The patient is known to have chronic COPD maintain on accommodation Symbicort and Spiriva and albuterol updrafts on outpatient basis History of a right upper lobe cavitary cystic changes along with an enlarging pulmonary nodule which seems to be suspicious for malignancy. This can be worked up on outpatient basis at the later stage. Right middle lobe pulmonary nodule being monitored on outpatient basis History of smoking History of smoking Acid reflux Sigmoid diverticulosis Left adnexal mass measuring 5.7 cm in size identified on a CAT scan of the abdomen and pelvis that was done on 04/12/2022, MRI was followed on 06/25/2022 showing a cystic lesion versus multiple simple cysts versus cystic neoplasm. Plan continue using the incentive spirometer Utilize BiPAP on and off during the if needed Continue bronchodilators Continue IV Zosyn Give the patient a dose of Lasix 40 mg IV push Change the lactated Ringer to 50 cc an hour Lovenox for DVT prophylaxis Pain control Will continue to follow make further recommendations based on her progress. Will continue to follow make further recommendations based on her progress.
--- NOTE | 2023-06-14 12:36 | P.PN ---
Subjective Progress Note Date: 06/14/23 CHIEF COMPLAINT: Diverticulitis HISTORY OF PRESENT ILLNESS: Patient postop day #2 status post exploratory laparotomy, sigmoid colectomy with end colostomy and partial omentectomy for diverticulitis causing colonic obstruction. Patient was extubated yesterday afternoon. She does complain of abdominal pain. She has been evaluated by speech therapy. Patient did have coughing with medication. They are recommending just ice chips for now and pills with applesauce. Afebrile. Mildly tachycardic. Patient was having elevated blood pressures. WBC has normalized from 13-10.3 Hgb 10.7 platelets 562 patient did receive a dose of IV Lasix today and IV fluids decreased. PHYSICAL EXAM: VITAL SIGNS: Reviewed. GENERAL: no acute distress. ABDOMEN: Soft. Nondistended. Prevena wound vac in place. No output in ostomy bag. NEUROLOGIC: [place] ASSESSMENT: 1. Acute severe sigmoid diverticulitis with failed outpatient therapy PLAN: -Continue ICU management and supportive care -keep patient NPO -Continue pain management -Discontinue lactulose for now -Continue antibiotics -Continue IV fluids at decreased rate -DVT prophylaxis Lovenox and GI prophylaxis [facility] Super[facility] note has been reviewed by physician. Signing provider agrees with the documented findings, assessment, and plan of care. Objective - Vital Signs Vital signs: Vital Signs Temp 99.4 F 06/14/23 08:00 Pulse 112 H 06/14/23 11:35 Resp 21 06/14/23 11:00 BP 121/69 06/14/23 11:00 Pulse Ox 92 L 06/14/23 11:00 FiO2 45 06/13/23 20:00 Intake & Output 06/13/23 06/14/23 06/14/23 18:59 06:59 18:59 Intake Total 3442.996 3232 665 Output Total 425 952 0293 Balance 825.384 636 -610 Weight 75.3 kg Intake: IV 1408 1536 665 Lactated Ringers 1,000 ml 1375 1500 250 @ 125 mls/hr IV .Q8H [facility] Rx#:[id number] Piperacillin-Tazobactam 3 100 .375 gm In Sodium Chloride 0.9% 100 ml @ 25 mls/hr IVPB Q8HR [facility] Rx# :[id number] Potassium Chloride 10 meq 300 In Water For Injection 1 100ml.bag @ 100 mls/hr IVPB Q1HR [facility] Rx#: [id number] pressure bag 33 36 15 Intake, IV Titration 52.384 Amount propofoL 1,000 mg In 52.384 Empty Bag 1 bag @ 15 MCG/ KG/MIN 5.511 mls/hr IV . Q18H9M [facility] Rx#:[id number] Output: Urine 476 295 7400 Other: Voiding Method Indwelling Catheter Indwelling Catheter Indwelling Catheter ABP, PAP, CO, CI - Last Documented Arterial Blood Pressure 122/57 - Labs CBC & Chem 7: 06/14/23 05:10 06/14/23 05:10 Labs: Abnormal Lab Results - Last 24 Hours (Table) 06/13/23 06/13/23 06/14/23 Range/Units 12:42 12:45 05:10 RBC 3.46 L (3.80-5.40) m/uL Hgb 10.7 L (11.4-16.0) gm/dL MCHC 30.9 L (31.0-37.0) g/dL Plt Count 562 H (150-450) k/uL Neutrophils # 8.4 H (1.3-7.7) k/uL Lymphocytes # 0.8 L (1.0-4.8) k/uL ABG pH 7.33 L (7.35-7.45) ABG pCO2 51 H (35-45) mmHg ABG pO2 79 L (83-108) mmHg ABG HCO3 27 H (21-25) mmol/L ABG Total CO2 28 H (19-24) mmol/L Sodium (137-145) mmol/L BUN (7-17) mg/dL Creatinine (0.52-1.04) mg/dL Glucose (74-99) mg/dL POC Glucose (mg/dL) 120 H (70-110) mg/dL Calcium (8.4-10.2) mg/dL 06/14/23 06/14/23 Range/Units 05:10 11:46 RBC (3.80-5.40) m/uL Hgb (11.4-16.0) gm/dL MCHC (31.0-37.0) g/dL Plt Count (150-450) k/uL Neutrophils # (1.3-7.7) k/uL Lymphocytes # (1.0-4.8) k/uL ABG pH (7.35-7.45) ABG pCO2 (35-45) mmHg ABG pO2 (83-108) mmHg ABG HCO3 (21-25) mmol/L ABG Total CO2 (19-24) mmol/L Sodium 134 L (137-145) mmol/L BUN 2 L (7-17) mg/dL Creatinine 0.33 L (0.52-1.04) mg/dL Glucose 109 H (74-99) mg/dL POC Glucose (mg/dL) 121 H (70-110) mg/dL Calcium 8.0 L (8.4-10.2) mg/dL Microbiology - Last 24 Hours (Table) 06/08/23 14:13 Blood Culture - Final Blood 06/12/23 05:50 Blood Culture - Preliminary Blood
[2023-06-14 17:06] LABS: Glucose,Whole Blood 108 mg/dL (70-110)
--- NOTE | 2023-06-14 21:21 | PN ---
PROGRESS NOTE SUBJECTIVE: Lethargic. OBJECTIVE: CARDIOVASCULAR: S1, S2. LUNGS: Transmitted upper sounds, scattered wheeze. GENERAL: She is thin, cachectic. ABDOMEN: Abdomen is in a bandage. EXTREMITIES: No edema. LABS: Reviewed. Hemoglobin is 10.7, white count is 10.3, sodium 134, potassium 3.5, creatinine 0.33. Sugars in the low 100s. She is day 2 status post ileus for colectomy repair and ileostomy for colectomy for colectomy repair, pathology is pending. She has no suspicious lesions. She is following commands. ABG was reviewed, pH 7.33, pCO2 51, PO2 50 79, bicarb is 27. PLAN: Continue current treatments. Wean pain medications as tolerated. Advance diet as tolerated. She has chronic abdominal pain secondary to above acute hypoxic hypercapnic respiratory failure for COPD, possibly sleep apnea at home. She wears oxygen at home at night. She is status post partial mastectomy laparotomy sigmoid diverticulitis and colostomy postop day 2, chronic COPD, history of right upper lung cavitary cystic change and a pulmonary nodule, possible significant for malignancy. Continue to follow this outpatient maybe a PET scan, nicotine addiction, left adnexal mass 5.7 shorter cystic lesion versus cystic neoplasm, but [place]. Prognosis is guarded. Continue current treatment. MMODL / IJN: [id number] /
[2023-06-15 02:04] LABS: Glucose,Whole Blood 102 mg/dL (70-110)
[2023-06-15 04:57] LABS: Basophils # (A) 0.1 k/uL (0-0.2); Basophils % (A) 1 %; Eosinophils # (A) 0.3 k/uL (0-0.7); Eosinophils % (A) 2 %; HCT 35.1 % (34.0-46.0); HGB 10.7 gm/dL (11.4-16.0); Hypochromasia Slight; Lymphocytes # (A) 1.2 k/uL (1.0-4.8); Lymphocytes % (A) 11 %; MCH 30.4 pg (25.0-35.0); MCHC 30.6 g/dL (31.0-37.0); MCV 99.4 fL (80.0-100.0); Mean Platelet Volume 7.9; Monocytes # (A) 0.9 k/uL (0-1.0); Monocytes % (A) 8 %; Neutrophils # (A) 8.6 k/uL (1.3-7.7); Neutrophils % (A) 77 %; Platelet Count 625 k/uL (150-450); RBC 3.53 m/uL (3.80-5.40); RDW 14.1 % (11.5-15.5); WBC 11.2 k/uL (3.8-10.6)
[2023-06-15 05:08] LABS: African American GFR (CKD) >90 (>60 ml/min/1.73 sqM); Anion Gap 4 mmol/L; Blood Urea Nitrogen 3 mg/dL (7-17); Calcium 7.8 mg/dL (8.4-10.2); Carbon Dioxide 34 mmol/L (22-30); Chloride 92 mmol/L (98-107); Glucose 98 mg/dL (74-99); Magnesium 1.6 mg/dL (1.6-2.3); Non-African American GFR(CKD) >90 (>60 ml/min/1.73 sqM); Potassium 4.3 mmol/L (3.5-5.1); Sodium 130 mmol/L (137-145)
[2023-06-15] MEDS ORDERED: Potassium Replacement Protocol 1 EACH MISC MISCELLANE PRN (05:25)
[2023-06-15 06:28] LABS: Glucose,Whole Blood 94 mg/dL (70-110)
--- NOTE | 2023-06-15 06:53 | P.PN ---
Subjective Progress Note Date: 06/15/23 Principal diagnosis: Respiratory failure. I was asked to evaluate this patient for a preoperative pulmonary clearance. The patient will be taken to the operating room today. The patient has an acute sigmoid diverticulitis with failed outpatient treatment. The patient continued to complain of abdominal pain. She was having no improvement in terms of her pain. She continued to have pain across her lower abdomen. The plan was to take this patient to the operating room for surgical exploration. CAT scan of the abdomen and pelvis that was done yesterday reported similar finding of the sigmoid colon consistent with acute diverticulitis and the patient small bilateral pleural effusions developed along with compressive atelectatic changes in lung bases. In terms of her pulmonary status, the patient is known to have COPD. The patient also has a pulmonary nodule in the right middle lobe area near the minor fissure measuring about 10 mm in size which has been progres sively increasing since 2019 and additional right upper lobe pulmonary nodule measuring 13 x 6 mm in size. There is also a right upper lobe chronic cystic change which has been present on previous CAT scans of the chest. No evidence of any airspace disease or consolidation. The patient also has a T7 vertebral compression fractures. At the time of my evaluation, the patient was on 4 L of oxygen by nasal cannula with a pulse ox 92%. She was having some respiratory distress at rest. According to the , the patient has been active and the patient has been able to walk half to 1 block without having any major difficulties. She has been doing activities of day-to-day life yet but overall exercise capacity has been quite limited due to her COPD. I have evaluated this patient in the past and the patient was seen in a previous hospitalization back in December 2022 for an acute COPD exacerbation. At that time, the chronic cystic changes along with the scarring in the right upper lobe was also noted in addition to the pulmonary nodules that were discussed. The patient is a chronic smoker. Labs show a WBC count of 10.9 with hemoglobin 11.3 and platelet count of 485. Normal renal function. Electrolytes are normal. Lactic acid level is at 0.5. The blood cultures showing gram-positive bacillus in the blood, rule out an anaerobic infection. This was however seen and only 1 out of 2 blood cultures. The patient is currently on Zosyn and infectious disease also on the case. 06/13/2023, the patient is being seen for a follow-up. The patient underwent an abdominal surgery yesterday and following that the patient was kept intubated on the mechanical ventilator. Surgery included sigmoid colectomy and end colostomy and partial omentectomy along with exploratory laparotomy. The patient was found to have a inflammatory mass causing colonic obstruction at the level of the sigmoid. The patient is currently postop day #1. She is on propofol running at 20 mcg/kg/min. She is also lactated Ringer at 125 cc an hour. She had a mechanical ventilator on assist-control mode with rate of 18, tidal volume of 400, FiO2 of 45% with a PEEP of 5. The blood gas showed a pH of 7.33 with a pCO2 of 51 and pO2 of 79. Chest x-ray from this morning shows no abnormalities in regards to the position of the orotracheal tube and NG tube. The patient has evidence of bilateral consolidation and small pleural effusions along with background COPD. The WBC count at 13.4 with a hemoglobin of 11.5 and a platelet count of 549. Sodium is at 132, BUN is at 30 with a creatinine of 0.28 and a potassium level is at 4. The patient remains on IV Zosyn. The patient on Lovenox for DVT prophylaxis. The patient is also on bronchodilators. She is on no pressors for now. On today's evaluation of 06/14/2023, the patient is being seen for a follow-up. The patient is extubated. She is a bit weak. She is currently complaining of abdominal pain. Colostomy site is nonfunctional at this point in time. No significant output. Bowel sounds remain hypoactive. The patient is seen Butch ramirez for pain control. She remains on IV Zosyn. She is still on 5 L of oxygen by nasal cannula. Chest x-ray that was done today shows some increased atelectatic changes in the lungs patient has some limited bibasilar infiltrates and probably a component of fluid overload. The patient is on 5 L of oxygen by nasal cannula. She is off the BiPAP. She is on lactated Ringer which is running at 125 cc an hour. Fluid balance is +1.4 L over the past 24 hours. The blood work from today shows a WBC count of 10.3 with a hemoglobin 10.7 and a platelet count of 562. BUN is 8 with a creatinine of 0.33 and a sodium level is at 134. She is awake and alert and she is also communicating. She remains on IV Zosyn. No pressors for now. She is on Lovenox 40 mg subcu for DVT prophylaxis. In terms of her abdominal wound, the patient has a superficial wound VAC which is in place. No emesis at this point in time. No abdominal distention. She is on lactated Ringer at rate of 125 cc an hour. The patient remains NPO. Progress note dated June 15, 2023. The patient is seen today in room 261. The patient was admitted back on June 07. She came to the ICU on June 11. The patient had a exploratory laparotomy, and was extubated to BiPAP, June 12. She did not use the BiPAP device last night. She continues on oxygen, by nasal cannula, at 6 L. She is getting lactated Ringer's at 75 cc an hour, saline at KVO. She had a sigmoid colectomy with colostomy. Today's postop day #3. Currently, white count 11.2, hemoglobin 10.7, hematocrit 35.1, and platelet count of 625,000. Sodium 130, potassium 4.3, chlorides 92, CO2 34, BUN 3, creatinine 0.31. Glucose is 94. Calcium 7.8, magnesium 1.6. Blood cultures from June 07 were positive for bacillus species. Chest x-ray shows some right upper lobe infiltrate, consolidation or effusion on the right lower lobe. There is also some atelectasis or infiltrate in the left lower lobe. Objective - Vital Signs Vital signs: Vital Signs Temp 97.2 F L 06/15/23 04:00 Pulse 101 H 06/15/23 05:00 Resp 17 06/15/23 05:00 BP 108/72 06/15/23 05:00 Pulse Ox 96 06/15/23 05:00 FiO2 45 06/13/23 20:00 Intake & Output 06/14/23 06/14/23 06/15/23 06:59 18:59 06:59 Intake Total 1536 1261 1008 Output Total 900 2775 820 Balance 636 -3594 188 Weight 75.3 kg 75.3 kg 73 kg Intake: IV 1536 1261 1008 Lactated Ringers 1,000 ml 1500 625 675 @ 75 mls/hr IV .[id number] [facility] Rx#:[id number] Piperacillin-Tazobactam 3 100 .375 gm In Sodium Chloride 0.9% 100 ml @ 25 mls/hr IVPB Q8HR [facility] Rx# :[id number] Potassium Chloride 10 meq 500 300 In Water For Injection 1 100ml.bag @ 100 mls/hr IVPB Q1HR [facility] Rx#: [id number] pressure bag 36 36 33 Output: Urine 900 2775 820 Other: Voiding Method Indwelling Catheter Indwelling Catheter Indwelling Catheter ABP, PAP, CO, CI - Last Documented Arterial Blood Pressure 131/54 - Exam No acute distress, oriented 3. Currently on 6 L nasal cannula. No respiratory distress. HEENT examination is grossly unremarkable. Mucous membranes are moist. No oral lesions. Neck supple. Full range of motion. No adenopathy thyromegaly or neck vein distention. Cardiovascular examination reveals regular rhythm rate. S1-S2 normal. No S3 or S4. No discernible murmur noted. Heart sounds are distant. Heart rate 99 bpm. Lungs reveal scattered bilateral rhonchi and wheezes. No crackles. Breath sounds equal but diminished. Saturations are 92% on 6 L. Abdomen soft, without bowel sounds. Colostomy is noted. Extremities are intact. No cyanosis clubbing or edema. Skin is without rash or lesion. Neurologic examination is brief but nonfocal. - Labs CBC & Chem 7: 06/15/23 04:15 06/15/23 04:15 Labs: Abnormal Lab Results - Last 24 Hours (Table) 06/14/23 06/15/23 06/15/23 Range/Units 11:46 04:15 04:15 WBC 11.2 H (3.8-10.6) k/uL RBC 3.53 L (3.80-5.40) m/uL Hgb 10.7 L (11.4-16.0) gm/dL MCHC 30.6 L (31.0-37.0) g/dL Plt Count 625 H (150-450) k/uL Neutrophils # 8.6 H (1.3-7.7) k/uL Sodium 130 L (137-145) mmol/L Chloride 92 L (98-107) mmol/L Carbon Dioxide 34 H (22-30) mmol/L BUN 3 L (7-17) mg/dL Creatinine 0.31 L (0.52-1.04) mg/dL POC Glucose (mg/dL) 121 H (70-110) mg/dL Calcium 7.8 L (8.4-10.2) mg/dL Microbiology - Last 24 Hours (Table) 06/12/23 05:50 Blood Culture - Preliminary Blood Assessment and Plan Assessment: Acute sigmoid diverticulitis, patient is status post exploratory laparotomy, partial omentectomy, sigmoid colectomy and end colostomy. The patient is postop day # 3. Patient remains on IV Zosyn. Hemodynamically stable. The patient still having some abdominal pain on Dilaudid. No functionality in the colostomy bag. Acute hypoxic/hypercapnic nahid failure following abdominal surgery and the patient was extubated to 5 L of oxygen nasal cannula, currently off the BiPAP. BiPAP was utilized as a bridging therapy postextubation. Abdominal pain secondary to above, currently stable Gram-positive bacillus in the blood, rule out anaerobic septicemia, currently on IV Zosyn Chronic COPD exacerbation with shortness of breath. The patient is known to have chronic COPD maintain on accommodation Symbicort and Spiriva and albuterol updrafts on outpatient basis History of a right upper lobe cavitary cystic changes along with an enlarging pulmonary nodule which seems to be suspicious for malignancy. This can be worked up on outpatient basis at the later stage. Right middle lobe pulmonary nodule being monitored on outpatient basis History of smoking History of smoking Acid reflux Sigmoid diverticulosis Left adnexal mass measuring 5.7 cm in size identified on a CAT scan of the abdomen and pelvis that was done on 04/12/2022, MRI was followed on 06/25/2022 showing a cystic lesion versus multiple simple cysts versus cystic neoplasm. Plan: Plan dated June 15, 2023. The patient is postop day #3. The patient is status post sigmoid colectomy with colostomy. She remains on 6 L by nasal cannula. She is receiving lactated Ringer's at 75 cc an hour. The patient did not use the BiPAP device last night. Labs, x-rays, and medications are reviewed. The patient continues on IV Zosyn. She continues on Lovenox for DVT prophylaxis. She is encouraged to use the incentive spirometer. We will continue to follow make recommendations along the way. Prognosis is certainly guarded. Time with Patient: Less than 30
--- NOTE | 2023-06-15 07:40 | XR ---
EXAMINATION TYPE: XR chest 1V portable DATE OF EXAM: 06/15/2023 COMPARISON: 06/14/2023 HISTORY: Tube placement TECHNIQUE: Single frontal view of the chest is obtained. FINDINGS: Bilateral consolidation with small effusion. Linear atelectasis right upper lobe. Underlyi ng emphysema. Volume loss involving the right hemithorax. There is increasing consolidation in the ri ght upper lobe.. No sizable pneumothorax. NG tube appears in good position. IMPRESSION: Increasing right upper lobe consolidation suspicious for pneumonia. Persistent bilateral pleural effusion and basilar consolidation stable.
--- NOTE | 2023-06-15 10:12 | P.PN ---
Subjective Progress Note Date: 06/15/23 CHIEF COMPLAINT: Diverticulitis HISTORY OF PRESENT ILLNESS: Patient postop day #3 status post exploratory laparotomy, sigmoid colectomy with end colostomy and partial omentectomy for diverticulitis causing colonic obstruction. Patient sitting up in bed. She does complain of abdominal pain. She denies any nausea or vomiting. No output from the ostomy. Afebrile. Mildly tachycardic. WBC 11.2 Hgb 10.7 platelets 625 sodium is 130 potassium is 4.3 creatinine 0.31 magnesium 1.6 PHYSICAL EXAM: VITAL SIGNS: Reviewed. GENERAL: no acute distress. ABDOMEN: Soft. Nondistended. Prevena wound vac in place. No stool output in ostomy bag. serosanguineous liquid in ostomy bag NEUROLOGIC: Awake and alert ASSESSMENT: 1. Acute severe sigmoid diverticulitis causing colonic obstruction 2. Hypomagnesemia PLAN: -Continue ICU management and supportive care -keep patient NPO -Continue pain management. Okay to use the Dilaudid 0.5 mg IV every 3 hours as needed for pain -Replace magnesium -Continue antibiotics -Continue IV fluids -Encouraged incentive spirometer use -DVT prophylaxis Lovenox and GI prophylaxis Protonix Physician Hydrometer Calibrator note has been reviewed by physician. Signing provider agrees with the documented findings, assessment, and plan of care. Objective - Vital Signs Vital signs: Vital Signs Temp 97.2 F L 06/15/23 04:00 Pulse 101 H 06/15/23 07:00 Resp 19 06/15/23 07:00 BP 111/68 06/15/23 07:00 Pulse Ox 92 L 06/15/23 07:00 FiO2 45 06/13/23 20:00 Intake & Output 06/14/23 06/15/23 06/15/23 18:59 06:59 18:59 Intake Total 1261 1086 156 Output Total 2775 900 240 Balance -1514 186 -84 Weight 75.3 kg 73 kg Intake: IV 1261 1086 156 Lactated Ringers 1,000 ml 625 750 150 @ 75 mls/hr IV .[id number] [facility] Rx#:[id number] Piperacillin-Tazobactam 3 100 .375 gm In Sodium Chloride 0.9% 100 ml @ 25 mls/hr IVPB Q8HR [facility] Rx# :[id number] Potassium Chloride 10 meq 500 300 In Water For Injection 1 100ml.bag @ 100 mls/hr IVPB Q1HR [facility] Rx#: [id number] pressure bag 36 36 6 Output: Urine 2775 900 240 Other: Voiding Method Indwelling Catheter Indwelling Catheter ABP, PAP, CO, CI - Last Documented Arterial Blood Pressure 127/59 - Labs CBC & Chem 7: 06/15/23 04:15 06/15/23 04:15 Labs: Abnormal Lab Results - Last 24 Hours (Table) 06/14/23 06/15/23 06/15/23 Range/Units 11:46 04:15 04:15 WBC 11.2 H (3.8-10.6) k/uL RBC 3.53 L (3.80-5.40) m/uL Hgb 10.7 L (11.4-16.0) gm/dL MCHC 30.6 L (31.0-37.0) g/dL Plt Count 625 H (150-450) k/uL Neutrophils # 8.6 H (1.3-7.7) k/uL Sodium 130 L (137-145) mmol/L Chloride 92 L (98-107) mmol/L Carbon Dioxide 34 H (22-30) mmol/L BUN 3 L (7-17) mg/dL Creatinine 0.31 L (0.52-1.04) mg/dL POC Glucose (mg/dL) 121 H (70-110) mg/dL Calcium 7.8 L (8.4-10.2) mg/dL Microbiology - Last 24 Hours (Table) 06/12/23 05:50 Blood Culture - Preliminary Blood
[2023-06-15] MEDS: MAGNESIUM SULFATE-D5W PMX 1 GM in DEXTROSE/WATER 1 100ML.BAG IVPB ONE (11:24)
[2023-06-15] MEDS: HYDROmorphone 0.5 MG/0.5 ML SYRINGE IVP PRN (12:43)
[2023-06-15] MEDS ORDERED: MORPHINE SULFATE 4 MG/ML SYRINGE IVP PRN (12:59)
[2023-06-15] MEDS: MORPHINE SULFATE 4 MG/ML SYRINGE IVP PRN (15:06)
[2023-06-16 04:43] LABS: Basophils # (A) 0.1 k/uL (0-0.2); Basophils % (A) 1 %; Eosinophils # (A) 0.4 k/uL (0-0.7); Eosinophils % (A) 4 %; HCT 36.2 % (34.0-46.0); HGB 11.4 gm/dL (11.4-16.0); Lymphocytes # (A) 1.2 k/uL (1.0-4.8); Lymphocytes % (A) 12 %; MCH 30.8 pg (25.0-35.0); MCHC 31.4 g/dL (31.0-37.0); MCV 97.9 fL (80.0-100.0); Mean Platelet Volume 7.3; Monocytes # (A) 0.8 k/uL (0-1.0); Monocytes % (A) 8 %; Neutrophils # (A) 7.1 k/uL (1.3-7.7); Neutrophils % (A) 74 %; Platelet Count 669 k/uL (150-450); RDW 13.9 % (11.5-15.5); WBC 9.6 k/uL (3.8-10.6)
[2023-06-16 05:05] LABS: African American GFR (CKD) >90 (>60 ml/min/1.73 sqM); Anion Gap 1 mmol/L; Blood Urea Nitrogen 4 mg/dL (7-17); Calcium 7.7 mg/dL (8.4-10.2); Carbon Dioxide 36 mmol/L (22-30); Chloride 91 mmol/L (98-107); Glucose 96 mg/dL (74-99); Magnesium 1.9 mg/dL (1.6-2.3); Non-African American GFR(CKD) >90 (>60 ml/min/1.73 sqM); Potassium 3.9 mmol/L (3.5-5.1); Sodium 128 mmol/L (137-145)
[2023-06-16] MEDS ORDERED: Potassium Replacement Protocol 1 EACH MISC MISCELLANE PRN (05:33)
[2023-06-16] MEDS ORDERED: Magnesium Replacement Protocol 1 EACH MISC MISCELLANE PRN (05:34)
[2023-06-16] MEDS: MAGNESIUM SULFATE-D5W PMX 1 GM in DEXTROSE/WATER 1 100ML.BAG IVPB ONE (06:10)
[2023-06-16] MEDS: POTASSIUM CHLORIDE 10 MEQ in WATER FOR INJECTION 1 100ML.BAG IVPB SCH ×2 (06:11→10:40)
--- NOTE | 2023-06-16 07:59 | XR ---
EXAMINATION TYPE: XR chest 1V portable DATE OF EXAM: 06/16/2023 COMPARISON: 06/15/2023 HISTORY: Pleural effusion TECHNIQUE: Single frontal view of the chest is obtained. FINDINGS: Bilateral consolidation with small effusion. Underlying emphysema. Volume loss involving t he right hemithorax. There is stable consolidation in the right upper lobe.. No sizable pneumothorax . NG tube appears in good position. IMPRESSION: Bilateral infiltrate and pleural effusion superimposed on a background of COPD stable. C orrelate for underlying pneumonia.
--- NOTE | 2023-06-16 09:28 | P.PN ---
Subjective Progress Note Date: 06/13/23 Principal diagnosis: Reason for follow-up is diverticulitis failed outpatient therapy and positive blood culture Patient is a 63-year-old female with a past medical history significant for COPD reflux anxiety depression former smoker presenting to the hospital for evaluation of abdominal pain with recent diagnosis of diverticulitis failing outpatient oral Augmentin therapy.Patient is status post exploratory laparotomy sigmoid colectomy with end colostomy and partial pneumonectomy procedure completed on 06/12/2023 patient was subsequent admitted to the ICU on the vent and the patient has been extubated morning of 06/13/2023 On today's evaluation that is 06/13/2023,the patient remains to be afebrile, patient is on BiPAP just extubated is lethargic and cannot provide any history patient is currently not on any pressor support no vomiting or any other changes reported by nursing staff. Patient white count of 13.4 creatinine 0.28 Objective - Vital Signs Vital signs: Vital Signs Temp 98.2 F 06/13/23 12:00 Pulse 105 H 06/13/23 14:15 Resp 24 06/13/23 14:15 BP 111/72 06/13/23 14:15 Pulse Ox 96 06/13/23 14:15 FiO2 45 06/13/23 14:15 Intake & Output 06/12/23 06/13/23 06/13/23 18:59 06:59 18:59 Intake Total 1100 1877.848 948.384 Output Total 660 955 435 Balance 440 922.848 513.384 Weight 70.1 kg Intake: IV 1100 1730 896 Azithromycin 500 mg In 250 Sodium Chloride 0.9% 250 ml @ 250 mls/hr IVPB DAILY@2000 [facility] Rx#: [id number] Lactated Ringers 1,000 ml 1250 875 @ 125 mls/hr IV .Q8H [facility] Rx#:[id number] Piperacillin-Tazobactam 3 200 .375 gm In Sodium Chloride 0.9% 100 ml @ 25 mls/hr IVPB Q8HR [facility] Rx# :[id number] pressure bag 30 21 Intake, IV Titration 147.848 52.384 Amount propofoL 1,000 mg In 147.848 52.384 Empty Bag 1 bag @ 15 MCG/ KG/MIN 5.511 mls/hr IV . Q18H9M [facility] Rx#:[id number] Output: Urine 650 955 435 Estimated Blood Loss 10 Other: Voiding Method Toilet Indwelling Catheter Indwelling Catheter # Voids 0 ABP, PAP, CO, CI - Last Documented Arterial Blood Pressure 154/69 - Exam GENERAL DESCRIPTION: Middle-aged female up in bed in no distress RESPIRATORY SYSTEM: Unlabored breathing , decreased breath sounds at bases HEART: S1 S2 regular rate and rhythm , ABDOMEN: Soft , mild tenderness EXTREMITIES: No edema feet - Labs CBC & Chem 7: 06/16/23 04:20 06/16/23 04:20 Labs: Abnormal Lab Results - Last 24 Hours (Table) 06/12/23 06/12/23 06/12/23 Range/Units 15:47 15:56 17:00 WBC (3.8-10.6) k/uL RBC (3.80-5.40) m/uL MCV (80.0-100.0) fL MCHC (31.0-37.0) g/dL Plt Count (150-450) k/uL Neutrophils # (1.3-7.7) k/uL Lymphocytes # (1.0-4.8) k/uL Monocytes # (0-1.0) k/uL ABG pH 7.34 L (7.35-7.45) ABG pCO2 55 H (35-45) mmHg ABG pO2 80 L (83-108) mmHg ABG HCO3 30 H (21-25) mmol/L ABG Total CO2 32 H (19-24) mmol/L ABG O2 Saturation (94-97) % Sodium (137-145) mmol/L BUN (7-17) mg/dL Creatinine (0.52-1.04) mg/dL Glucose (74-99) mg/dL POC Glucose (mg/dL) 114 H (70-110) mg/dL Plasma Lactic Acid Dio 0.5 L (0.7-2.0) mmol/L Calcium (8.4-10.2) mg/dL Total Protein (6.3-8.2) g/dL Albumin (3.5-5.0) g/dL 06/12/23 06/12/23 06/13/23 Range/Units 20:23 21:15 04:37 WBC 13.4 H (3.8-10.6) k/uL RBC 3.73 L (3.80-5.40) m/uL MCV 100.4 H (80.0-100.0) fL MCHC 30.6 L (31.0-37.0) g/dL Plt Count 549 H (150-450) k/uL Neutrophils # 11.4 H (1.3-7.7) k/uL Lymphocytes # 0.7 L (1.0-4.8) k/uL Monocytes # 1.2 H (0-1.0) k/uL ABG pH 7.29 L (7.35-7.45) ABG pCO2 54 H (35-45) mmHg ABG pO2 118 H (83-108) mmHg ABG HCO3 26 H (21-25) mmol/L ABG Total CO2 28 H (19-24) mmol/L ABG O2 Saturation 98.3 H (94-97) % Sodium (137-145) mmol/L BUN (7-17) mg/dL Creatinine (0.52-1.04) mg/dL Glucose (74-99) mg/dL POC Glucose (mg/dL) 123 H (70-110) mg/dL Plasma Lactic Acid Dio (0.7-2.0) mmol/L Calcium (8.4-10.2) mg/dL Total Protein (6.3-8.2) g/dL Albumin (3.5-5.0) g/dL 06/13/23 06/13/23 06/13/23 Range/Units 04:37 05:45 12:42 WBC (3.8-10.6) k/uL RBC (3.80-5.40) m/uL MCV (80.0-100.0) fL MCHC (31.0-37.0) g/dL Plt Count (150-450) k/uL Neutrophils # (1.3-7.7) k/uL Lymphocytes # (1.0-4.8) k/uL Monocytes # (0-1.0) k/uL ABG pH 7.31 L 7.33 L (7.35-7.45) ABG pCO2 48 H 51 H (35-45) mmHg ABG pO2 79 L 79 L (83-108) mmHg ABG HCO3 27 H (21-25) mmol/L ABG Total CO2 26 H 28 H (19-24) mmol/L ABG O2 Saturation (94-97) % Sodium 132 L (137-145) mmol/L BUN 3 L (7-17) mg/dL Creatinine 0.28 L (0.52-1.04) mg/dL Glucose 113 H (74-99) mg/dL POC Glucose (mg/dL) (70-110) mg/dL Plasma Lactic Acid Dio (0.7-2.0) mmol/L Calcium 7.8 L (8.4-10.2) mg/dL Total Protein 4.5 L (6.3-8.2) g/dL Albumin 2.4 L (3.5-5.0) g/dL 06/13/23 Range/Units 12:45 WBC (3.8-10.6) k/uL RBC (3.80-5.40) m/uL MCV (80.0-100.0) fL MCHC (31.0-37.0) g/dL Plt Count (150-450) k/uL Neutrophils # (1.3-7.7) k/uL Lymphocytes # (1.0-4.8) k/uL Monocytes # (0-1.0) k/uL ABG pH (7.35-7.45) ABG pCO2 (35-45) mmHg ABG pO2 (83-108) mmHg ABG HCO3 (21-25) mmol/L ABG Total CO2 (19-24) mmol/L ABG O2 Saturation (94-97) % Sodium (137-145) mmol/L BUN (7-17) mg/dL Creatinine (0.52-1.04) mg/dL Glucose (74-99) mg/dL POC Glucose (mg/dL) 120 H (70-110) mg/dL Plasma Lactic Acid Dio (0.7-2.0) mmol/L Calcium (8.4-10.2) mg/dL Total Protein (6.3-8.2) g/dL Albumin (3.5-5.0) g/dL Microbiology - Last 24 Hours (Table) 06/12/23 05:50 Blood Culture - Preliminary Blood Assessment and Plan (1) Diverticulitis Current Visit: Yes Status: Acute Code(s): K57.92 - DVTRCLI OF INTEST, PART UNSP, W/O PERF OR ABSCESS W/O BLEED SNOMED Code(s): 665369965 (2) Failure of outpatient treatment Current Visit: Yes Status: Acute Code(s): Z78.9 - OTHER SPECIFIED HEALTH STATUS SNOMED Code(s): 972679424 (3) Positive blood culture Current Visit: Yes Status: Acute Code(s): R78.81 - BACTEREMIA SNOMED Code(s): 375375158 Plan: 1patient was in the hospital abdominal pain and this patient has been diagnosed with acute diverticulitis failing outpatient oral Augmentin therapy CT did not mention any perforation or abscess. 2-patient did have a positive blood culture with a question of contamination, blood culture has been repeated and so far negative 3-patient is s/p exploratory laparotomy colectomy and colostomy, postop white count slightly elevated more likely reactive will monitor closely continue with Zosyn Dictation was produced using [employer] dictation software. please excuse any grammatical, word or spelling errors. Time with Patient: Less than 30
--- NOTE | 2023-06-16 09:29 | P.PN ---
Subjective Progress Note Date: 06/14/23 Principal diagnosis: Reason for follow-up is diverticulitis failed outpatient therapy and positive blood culture Patient is a 63-year-old female with a past medical history significant for COPD reflux anxiety depression former smoker presenting to the hospital for evaluation of abdominal pain with recent diagnosis of diverticulitis failing outpatient oral Augmentin therapy.Patient is status post exploratory laparotomy sigmoid colectomy with end colostomy and partial pneumonectomy procedure completed on 06/12/2023 patient was subsequent admitted to the ICU on the vent and the patient has been extubated morning of 06/13/2023 On today's evaluation that is 06/14/2023, the patient continues to be afebrile, the patient is on 6 L nasal cannula oxygen and breathing comfortably, the Pt denies having any chest pain or cough, the patient has been complaining of abdominal pain however denies any worsening pain asking for food no output in colostomy. Patient white count normalized to 10.3 creatinine 0.33 Objective - Vital Signs Vital signs: Vital Signs Temp 98.2 F 06/14/23 12:00 Pulse 112 H 06/14/23 12:00 Resp 28 H 06/14/23 12:00 BP 107/65 06/14/23 12:00 Pulse Ox 87 L 06/14/23 12:00 FiO2 45 06/13/23 20:00 Intake & Output 06/13/23 06/14/23 06/14/23 18:59 06:59 18:59 Intake Total 7465.580 7450 743 Output Total 560 656 3771 Balance 825.384 636 -1132 Weight 75.3 kg Intake: IV 1408 1536 743 Lactated Ringers 1,000 ml 1375 1500 325 @ 75 mls/hr IV .[id number] [facility] Rx#:[id number] Piperacillin-Tazobactam 3 100 .375 gm In Sodium Chloride 0.9% 100 ml @ 25 mls/hr IVPB Q8HR [facility] Rx# :[id number] Potassium Chloride 10 meq 300 In Water For Injection 1 100ml.bag @ 100 mls/hr IVPB Q1HR [facility] Rx#: [id number] pressure bag 33 36 18 Intake, IV Titration 52.384 Amount propofoL 1,000 mg In 52.384 Empty Bag 1 bag @ 15 MCG/ KG/MIN 5.511 mls/hr IV . [id number] [facility] Rx#:[id number] Output: Urine 747 144 4348 Other: Voiding Method Indwelling Catheter Indwelling Catheter Indwelling Catheter ABP, PAP, CO, CI - Last Documented Arterial Blood Pressure 118/57 - Exam GENERAL DESCRIPTION: Middle-aged female up in bed in no distress RESPIRATORY SYSTEM: Unlabored breathing , decreased breath sounds at bases HEART: S1 S2 regular rate and rhythm , ABDOMEN: Soft , mild tenderness EXTREMITIES: No edema feet - Labs CBC & Chem 7: 06/16/23 04:20 06/16/23 04:20 Labs: Abnormal Lab Results - Last 24 Hours (Table) 06/14/23 06/14/23 06/14/23 Range/Units 05:10 05:10 11:46 RBC 3.46 L (3.80-5.40) m/uL Hgb 10.7 L (11.4-16.0) gm/dL MCHC 30.9 L (31.0-37.0) g/dL Plt Count 562 H (150-450) k/uL Neutrophils # 8.4 H (1.3-7.7) k/uL Lymphocytes # 0.8 L (1.0-4.8) k/uL Sodium 134 L (137-145) mmol/L BUN 2 L (7-17) mg/dL Creatinine 0.33 L (0.52-1.04) mg/dL Glucose 109 H (74-99) mg/dL POC Glucose (mg/dL) 121 H (70-110) mg/dL Calcium 8.0 L (8.4-10.2) mg/dL Microbiology - Last 24 Hours (Table) 06/08/23 14:13 Blood Culture - Final Blood 06/12/23 05:50 Blood Culture - Preliminary Blood Assessment and Plan (1) Diverticulitis Current Visit: Yes Status: Acute Code(s): K57.92 - DVTRCLI OF INTEST, PART UNSP, W/O PERF OR ABSCESS W/O BLEED SNOMED Code(s): 575444411 (2) Failure of outpatient treatment Current Visit: Yes Status: Acute Code(s): Z78.9 - OTHER SPECIFIED HEALTH STATUS SNOMED Code(s): 790445176 (3) Positive blood culture Current Visit: Yes Status: Acute Code(s): R78.81 - BACTEREMIA SNOMED Code(s): 851541389 Plan: 1patient was in the hospital abdominal pain and this patient has been diagnosed with acute diverticulitis failing outpatient oral Augmentin therapy CT did not mention any perforation or abscess. 2-patient did have a positive blood culture with a question of contamination, blood culture has been repeated and so far negative 3-patient is s/p exploratory laparotomy colectomy and colostomy, postop white count slightly elevated more likely reactive and has normalized, patient to continue with Zosyn and monitor clinical course closely Dictation was produced using [employer] dictation software. please excuse any grammatical, word or spelling errors.
--- NOTE | 2023-06-16 09:30 | P.PN ---
Subjective Progress Note Date: 06/15/23 Principal diagnosis: Reason for follow-up is diverticulitis failed outpatient therapy and positive blood culture Patient is a 63-year-old female with a past medical history significant for COPD reflux anxiety depression former smoker presenting to the hospital for evaluation of abdominal pain with recent diagnosis of diverticulitis failing outpatient oral Augmentin therapy.Patient is status post exploratory laparotomy sigmoid colectomy with end colostomy and partial pneumonectomy procedure completed on 06/12/2023 patient was subsequent admitted to the ICU on the vent and the patient has been extubated morning of 06/13/2023 On today's evaluation that is 06/15/2023, Patient is afebrile patient is currently on 6 L nasal cannula oxygen and denies having any shortness of breath, the patient denies any chest pain or cough, the patient denies any nausea vomiting abdominal pain is controlled with the pain medication no output in the colostomy. Patient white count slightly up to 11.2 creatinine 0.31 Objective - Vital Signs Vital signs: Vital Signs Temp 98.1 F 06/15/23 12:00 Pulse 110 H 06/15/23 12:00 Resp 20 06/15/23 12:00 BP 121/80 06/15/23 12:00 Pulse Ox 91 L 06/15/23 12:00 FiO2 45 06/13/23 20:00 Intake & Output 06/14/23 06/15/23 06/15/23 18:59 06:59 18:59 Intake Total 1261 1086 468 Output Total 2775 900 610 Balance -1514 186 -142 Weight 75.3 kg 73 kg Intake: IV 1261 1086 468 Lactated Ringers 1,000 ml 625 750 450 @ 75 mls/hr IV .[id number] [facility] Rx#:[id number] Piperacillin-Tazobactam 3 100 .375 gm In Sodium Chloride 0.9% 100 ml @ 25 mls/hr IVPB Q8HR [facility] Rx# :[id number] Potassium Chloride 10 meq 500 300 In Water For Injection 1 100ml.bag @ 100 mls/hr IVPB Q1HR [facility] Rx#: [id number] pressure bag 36 36 18 Output: Urine 2775 900 610 Other: Voiding Method Indwelling Catheter Indwelling Catheter Indwelling Catheter ABP, PAP, CO, CI - Last Documented Arterial Blood Pressure 121/59 - Exam GENERAL DESCRIPTION: Middle-aged female up in bed in no distress RESPIRATORY SYSTEM: Unlabored breathing , decreased breath sounds at bases HEART: S1 S2 regular rate and rhythm , ABDOMEN: Soft , mild tenderness EXTREMITIES: No edema feet - Labs CBC & Chem 7: 06/16/23 04:20 06/16/23 04:20 Labs: Abnormal Lab Results - Last 24 Hours (Table) 06/15/23 06/15/23 Range/Units 04:15 04:15 WBC 11.2 H (3.8-10.6) k/uL RBC 3.53 L (3.80-5.40) m/uL Hgb 10.7 L (11.4-16.0) gm/dL MCHC 30.6 L (31.0-37.0) g/dL Plt Count 625 H (150-450) k/uL Neutrophils # 8.6 H (1.3-7.7) k/uL Sodium 130 L (137-145) mmol/L Chloride 92 L (98-107) mmol/L Carbon Dioxide 34 H (22-30) mmol/L BUN 3 L (7-17) mg/dL Creatinine 0.31 L (0.52-1.04) mg/dL Calcium 7.8 L (8.4-10.2) mg/dL Microbiology - Last 24 Hours (Table) 06/12/23 05:50 Blood Culture - Preliminary Blood Assessment and Plan (1) Diverticulitis Current Visit: Yes Status: Acute Code(s): K57.92 - DVTRCLI OF INTEST, PART UNSP, W/O PERF OR ABSCESS W/O BLEED SNOMED Code(s): 747665671 (2) Failure of outpatient treatment Current Visit: Yes Status: Acute Code(s): Z78.9 - OTHER SPECIFIED HEALTH STATUS SNOMED Code(s): 652230962 (3) Positive blood culture Current Visit: Yes Status: Acute Code(s): R78.81 - BACTEREMIA SNOMED Code (s): 276995640 Plan: 1patient was in the hospital abdominal pain and this patient has been diagnosed with acute diverticulitis failing outpatient oral Augmentin therapy CT did not mention any perforation or abscess. 2-patient did have a positive blood culture with a question of contamination, blood culture has been repeated and so far negative 3-patient is s/p exploratory laparotomy colectomy and colostomy, 4-patient remains to be afebrile white count is mildly up today will be monitored closely and continue with the [employer] question concerns were answered Dictation was produced using [employer] dictation software. please excuse any grammatical, word or spelling errors. Time with Patient: Less than 30
[2023-06-16] MEDS: methylPREDNISolone SOD SUCCI 40 MG/ML 1 ML VIAL IV SCH (10:54)
--- NOTE | 2023-06-16 13:50 | P.PN ---
Subjective Progress Note Date: 06/16/23 I was asked to evaluate this patient for a preoperative pulmonary clearance. The patient will be taken to the operating room today. The patient has an acute sigmoid diverticulitis with failed outpatient treatment. The patient continued to complain of abdominal pain. She was having no improvement in terms of her pain. She continued to have pain across her lower abdomen. The plan was to take this patient to the operating room for surgical exploration. CAT scan of the abdomen and pelvis that was done yesterday reported similar finding of the sigmoid colon consistent with acute diverticulitis and the patient small bilateral pleural effusions developed along with compressive atelectatic changes in lung bases. In terms of her pulmonary status, the patient is known to have COPD. The patient also has a pulmonary nodule in the right middle lobe area near the minor fissure measuring about 10 mm in size which has been progressively increasing since 2019 and additional right upper lobe pulmonary nodule measuring 13 x 6 mm in size. There is also a right upper lobe chronic cystic change which has been present on previous CAT scans of the chest. No evidence of any airspace disease or consolidation. The patient also has a T7 vertebral compression fractures. At the time of my evaluation, the patient was on 4 L of oxygen by nasal cannula with a pulse ox 92%. She was having some respiratory distress at rest. According to the , the patient has been active and the patient has been able to walk half to 1 block without having any major difficulties. She has been doing activities of day-to-day life yet but overall exercise capacity has been quite limited due to her COPD. I have evaluated this patient in the past and the patient was seen in a previous hospitalization back in December 2022 for an acute COPD exacerbation. At that time, the chronic cystic changes along with the scarring in the right upper lobe was also noted in addition to the pulmonary nodules that were discussed. The patient is a chronic smoker. Labs show a WBC count of 10.9 with hemoglobin 11.3 and platelet count of 485. Normal renal function. Electrolytes are normal. Lactic acid level is at 0.5. The blood cultures showing gram-positive bacillus in the blood, rule out an anaerobic infection. This was however seen and only 1 out of 2 blood cultures. The patient is currently on Zosyn and infectious disease also on the case. 06/13/2023, the patient is being seen for a follow-up. The patient underwent an abdominal surgery yesterday and following that the patient was kept intubated on the mechanical ventilator. Surgery included sigmoid colectomy and end colostomy and partial omentectomy along with exploratory laparotomy. The patient was found to have a inflammatory mass causing colonic obstruction at the level of the sigmoid. The patient is currently postop day #1. She is on propofol running at 20 mcg/kg/min. She is also lactated Ringer at 125 cc an hour. She had a mechanical ventilator on assist-control mode with rate of 18, tidal volume of 400, FiO2 of 45% with a PEEP of 5. The blood gas showed a pH of 7.33 with a pCO2 of 51 and pO2 of 79. Chest x-ray from this morning shows no abnormalities in regards to the position of the orotracheal tube and NG tube. The patient has evidence of bilateral consolidation and small pleural effusions along with background COPD. The WBC count at 13.4 with a hemoglobin of 11.5 and a platelet count of 549. Sodium is at 132, BUN is at 30 with a creatinine of 0.28 and a potassium level is at 4. The patient remains on IV Zosyn. The patient on Lovenox for DVT prophylaxis. The patient is also on bronchodilators. She is on no pressors for now. On today's evaluation of 06/14/2023, the patient is being seen for a follow-up. The patient is extubated. She is a bit weak. She is currently complaining of abdominal pain. Colostomy site is nonfunctional at this point in time. No significant output. Bowel sounds remain hypoactive. The patient is seen Dilaudid for pain control. She remains on IV Zosyn. She is still on 5 L of oxygen by nasal cannula. Chest x-ray that was done today shows some increased atelectatic changes in the lungs patient has some limited bibasilar infiltrates and probably a component of fluid overload. The patient is on 5 L of oxygen by nasal cannula. She is off the BiPAP. She is on lactated Ringer which is running at 125 cc an hour. Fluid balance is +1.4 L over the past 24 hours. The blood work from today shows a WBC count of 10.3 with a hemoglobin 10.7 and a platelet count of 562. BUN is 8 with a creatinine of 0.33 and a sodium level is at 134. She is awake and alert and she is also communicating. She remains on IV Zosyn. No pressors for now. She is on Lovenox 40 mg subcu for DVT prophylaxis. In terms of her abdominal wound, the patient has a superficial wound VAC which is in place. No emesis at this point in time. No abdominal distention. She is on lactated Ringer at rate of 125 cc an hour. The patient remains NPO. On today's evaluation on 06/16/2023, seen the patient for a follow-up. Overnight, the patient became more short of breath and the patient accordingly was placed on a BiPAP. She is on a BiPAP this morning and she is resting comfortably in bed at a pressure of 10/5 with an FiO2 of 45%. Repeat chest x-ray from today showing bilateral infiltrates and pleural effusion with a background COPD. The patient is tolerating the BiPAP reasonably well. At the same time, the patient remains in a normal state rate of 75 cc an hour. Fluid balance over the past 24 hours has been -1.3 L. At the same time, the colostomy output is improved and the site is viable. Surgical wound site is dry clean and intact. No abdominal distention or abdominal pain. The patient is currently NPO. The white cell count is at 9.6 with a hemoglobin 11.4 and a platelet count of 669 and the BUN is at 4 with a creatinine of 0.35, sodium level is at 128. Remains on IV Zosyn. Remains on bronchodilators. She has increased bronchospasm and wheezing and based on that I am going to start her on IV Solu-Medrol 40 mg every 8 hours. She is responsive, alert and awake. Quite lethargic. She is unable to communicate. No issues with pain at this point in time. Objective - Vital Signs Vital signs: Vital Signs Temp 97.6 F 06/16/23 12:00 Pulse 95 06/16/23 13:00 Resp 14 06/16/23 13:00 BP 99/68 06/15/23 21:00 Pulse Ox 94 L 06/16/23 13:00 FiO2 45 06/16/23 09:00 Intake & Output 06/15/23 06/16/23 06/16/23 18:59 06:59 18:59 Intake Total 858 936 546 Output Total 970 830 515 Balance -112 106 31 Weight 71.4 kg Intake: IV 858 936 546 Lactated Ringers 1,000 ml 825 900 525 @ 75 mls/hr IV .[id number] [facility] Rx#:[id number] pressure bag 33 36 21 Output: Urine 970 830 515 Other: Voiding Method Indwelling Catheter Indwelling Catheter Indwelling Catheter ABP, PAP, CO, CI - Last Documented Arterial Blood Pressure 110/45 - Exam General appearance,, comfortable currently BiPAP at a pressure of 5 cm of water with an FiO2 of 45% Head exam was generally normal. There was no scleral icterus or corneal arcus. Mucous membranes were moist. Neck was supple and without jugular venous distension, thyromegaly, or carotid bruits. Carotids were easily palpable bilaterally. There was no adenopathy. Lung sounds are with diminished bilaterally along with few scattered expiratory wheeze Cardiac exam revealed the PMI to be normally situated and sized. The rhythm was regular and no extrasystoles were noted during several minutes of auscultation. The first and second heart sounds were normal and physiologic splitting of the second heart sound was noted. There were no murmurs, rubs, clicks, or gallops. Examination of the abdomen is soft and the patient has a viable colostomy in the left lower quadrant area. No direct tenderness or moderate to guarding. Liquidy output in the colostomy bag. Bowel sounds are hypoactive. Examination of the extremities revealed easily palpable radial, femoral and peda l pulses. There was no cyanosis, clubbing or edema. Examination of the skin revealed no evidence of significant rashes, suspicious appearing nevi or other concerning lesions. Neurologically, patient is lethargic yet arousable. She answers simple questions. She following commands and answering questions appropriately. No focal neurological deficits. - Labs CBC & Chem 7: 06/16/23 04:20 06/16/23 09:00 Labs: Abnormal Lab Results - Last 24 Hours (Table) 06/16/23 06/16/23 Range/Units 04:20 04:20 RBC 3.70 L (3.80-5.40) m/uL Plt Count 669 H (150-450) k/uL Sodium 128 L (137-145) mmol/L Chloride 91 L (98-107) mmol/L Carbon Dioxide 36 H (22-30) mmol/L BUN 4 L (7-17) mg/dL Creatinine 0.35 L (0.52-1.04) mg/dL Calcium 7.7 L (8.4-10.2) mg/dL Microbiology - Last 24 Hours (Table) 06/12/23 05:50 Blood Culture - Preliminary Blood Assessment and Plan Plan: Acute sigmoid diverticulitis, patient is status post exploratory laparotomy, partial omentectomy, sigmoid colectomy and end colostomy. The patient is postop day # 4. Patient remains on IV Zosyn. Hemodynamically stable. The patient remains in intensive care unit. She remains NPO. Positive output in the colostomy bag. Surgical wound site is dry clean and intact. She remains on IV Zosyn. Acute hypoxic/hypercapnic respiratory failure following abdominal surgery and the patient extubated. However, postextubation, she continued to have episodes of increased shortness of breath. Earlier this morning, the patient was placed on a BiPAP. Abdominal pain secondary to above, currently stable, improved Gram-positive bacillus in the blood, rule out anaerobic septicemia, currently on IV Zosyn Chronic COPD exacerbation with shortness of breath. The patient is known to have chronic COPD maintain on accommodation Symbicort and Spiriva and albuterol updrafts on outpatient basis History of a right upper lobe cavitary cystic changes along with an enlarging pulmonary nodule which seems to be suspicious for malignancy. This can be worked up on outpatient basis at the later stage. Right middle lobe pulmonary nodule being monitored on outpatient basis History of smoking History of smoking Acid reflux Sigmoid diverticulosis Left adnexal mass measuring 5.7 cm in size identified on a CAT scan of the abdomen and pelvis that was done on 04/12/2022, MRI was followed on 06/25/2022 showing a cystic lesion versus multiple simple cysts versus cystic neoplasm. Plan Keep the patient on BiPAP for now Continue bronchodilators Start Solu-Medrol 40 mg 8 hours Continue IV Zosyn IV fluids with normal saline at rate of 75 cc an hour Lovenox for DVT prophylaxis Pain control Will continue to follow make further recommendations based on her progress. She is close monitoring. High risk for developing respiratory failure as the patient advanced COPD at baseline. Will keep her on a BiPAP and transition to nasal cannula if she shows improvement with a combination of bronchodilators and steroids. The patient will be kept n.p.o. for now. Will consider TPN if she is unable to eat for over the next 24 to 48 hours. Condition remains quite critically we will continue to follow. This evaluation was done more than 30 minutes. Time with Patient: Greater than 30
--- NOTE | 2023-06-16 14:25 | P.PN ---
Subjective Progress Note Date: 06/16/23 CHIEF COMPLAINT: Diverticulitis HISTORY OF PRESENT ILLNESS: Patient postop day #4 status post exploratory laparotomy, sigmoid colectomy with end colostomy and partial omentectomy for diverticulitis causing colonic obstruction. Patient sitting up in bed. She did require to be on the BiPAP this morning. She was lethargic. This afternoon she is more awake. She did pass her swallow eval. No stool output from her ostomy. No nausea or vomiting. Afebrile. WBC normalized at 9.6 sodium 128 potassium is 4.3 magnesium 1.9 PHYSICAL EXAM: VITAL SIGNS: Reviewed. GENERAL: no acute distress. ABDOMEN: Soft. Nondistended. Prevena wound vac in place. No stool output in ostomy bag. serosanguineous liquid in ostomy bag NEUROLOGIC: Awake and alert ASSESSMENT: 1. Acute severe sigmoid diverticulitis causing colonic obstruction 2. Hypomagnesemia improved PLAN: -Start clear liquid diet -Agree with PICC line placement and TPN for nutrition support -Continue IV fluids -Continue ICU management and supportive care -Continue pain management. -Continue antibiotics -Encouraged incentive spirometer use -DVT prophylaxis Lovenox and GI prophylaxis Protonix Physician Grinder Set Up Operator Surface note has been reviewed by physician. Signing provider agrees with the documented findings, assessment, and plan of care. Objective - Vital Signs Vital signs: Vital Signs Temp 97.6 F 06/16/23 12:00 Pulse 99 06/16/23 12:00 Resp 18 06/16/23 12:00 BP 99/68 06/15/23 21:00 Pulse Ox 96 06/16/23 12:00 FiO2 45 06/16/23 09:00 Intake & Output 06/15/23 06/16/23 06/16/23 18:59 06:59 18:59 Intake Total 858 936 468 Output Total 970 830 440 Balance -112 106 28 Weight 71.4 kg Intake: IV 858 936 468 Lactated Ringers 1,000 ml 825 900 450 @ 75 mls/hr IV .[id number] [facility] Rx#:[id number] pressure bag 33 36 18 Output: Urine 970 830 440 Other: Voiding Method Indwelling Catheter Indwelling Catheter Indwelling Catheter ABP, PAP, CO, CI - Last Documented Arterial Blood Pressure 113/46 - Labs CBC & Chem 7: 06/16/23 04:20 06/16/23 09:00 Labs: Abnormal Lab Results - Last 24 Hours (Table) 06/16/23 06/16/23 Range/Units 04:20 04:20 RBC 3.70 L (3.80-5.40) m/uL Plt Count 669 H (150-450) k/uL Sodium 128 L (137-145) mmol/L Chloride 91 L (98-107) mmol/L Carbon Dioxide 36 H (22-30) mmol/L BUN 4 L (7-17) mg/dL Creatinine 0.35 L (0.52-1.04) mg/dL Calcium 7.7 L (8.4-10.2) mg/dL Microbiology - Last 24 Hours (Table) 06/12/23 05:50 Blood Culture - Preliminary Blood
[2023-06-16 17:53] LABS: Glucose,Whole Blood 188 mg/dL (70-110)
[2023-06-17 05:51] LABS: Basophils % (A) 0 %; Eosinophils % (A) 1 %; HCT 37.2 % (34.0-46.0); HGB 11.6 gm/dL (11.4-16.0); Lymphocytes # (A) 0.5 k/uL (1.0-4.8); Lymphocytes % (A) 6 %; MCH 30.4 pg (25.0-35.0); MCHC 31.1 g/dL (31.0-37.0); MCV 97.7 fL (80.0-100.0); Mean Platelet Volume 7.7; Monocytes # (A) 0.4 k/uL (0-1.0); Monocytes % (A) 6 %; Neutrophils # (A) 6.3 k/uL (1.3-7.7); Neutrophils % (A) 87 %; Platelet Count 800 k/uL (150-450); RBC 3.81 m/uL (3.80-5.40); RDW 14.1 % (11.5-15.5); WBC 7.2 k/uL (3.8-10.6)
[2023-06-17 06:10] LABS: African American GFR (CKD) >90 (>60 ml/min/1.73 sqM); Anion Gap 5 mmol/L; Blood Urea Nitrogen 8 mg/dL (7-17); Calcium 8.3 mg/dL (8.4-10.2); Carbon Dioxide 33 mmol/L (22-30); Chloride 92 mmol/L (98-107); Glucose 157 mg/dL (74-99); Non-African American GFR(CKD) >90 (>60 ml/min/1.73 sqM); Potassium 4.3 mmol/L (3.5-5.1); Sodium 130 mmol/L (137-145)
--- NOTE | 2023-06-17 07:39 | P.PN ---
Subjective Progress Note Date: 06/16/23 Principal diagnosis: Reason for follow-up is diverticulitis failed outpatient therapy and positive blood culture Patient is a 63-year-old female with a past medical history significant for COPD reflux anxiety depression former smoker presenting to the hospital for evaluation of abdominal pain with recent diagnosis of diverticulitis failing outpatient oral Augmentin therapy.Patient is status post exploratory laparotomy sigmoid colectomy with end colostomy and partial pneumonectomy procedure completed on 06/12/2023 patient was subsequent admitted to the ICU on the vent and the patient has been extubated morning of 06/13/2023 On today's evaluation that is 06/16/2023, patient has been afebrile, patient is complaining of some shortness of breath and did require BiPAP denies any chest pain patient did have a cough and bringing up some sputum per the nursing staff some nausea but no vomiting abdominal pain is controlled with pain medication no output in the colostomy. The patient white count is 9.6, creatinine 0.35 blood culture with bacillus species repeat blood culture negative Objective - Vital Signs Vital signs: Vital Signs Temp 97.6 F 06/16/23 12:00 Pulse 99 06/16/23 12:00 Resp 18 06/16/23 12:00 BP 99/68 06/15/23 21:00 Pulse Ox 96 06/16/23 12:00 FiO2 45 06/16/23 09:00 Intake & Output 06/15/23 06/16/23 06/16/23 18:59 06:59 18:59 Intake Total 858 936 468 Output Total 970 830 440 Balance -112 106 28 Weight 71.4 kg Intake: IV 858 936 468 Lactated Ringers 1,000 ml 825 900 450 @ 75 mls/hr IV .[id number] [facility] Rx#:[id number] pressure bag 33 36 18 Output: Urine 970 830 440 Other: Voiding Method Indwelling Catheter Indwelling Catheter Indwelling Catheter ABP, PAP, CO, CI - Last Documented Arterial Blood Pressure 113/46 - Exam GENERAL DESCRIPTION: Middle-aged female up in bed in no distress RESPIRATORY SYSTEM: Unlabored breathing , decreased breath sounds at bases HEART: S1 S2 regular rate and rhythm , ABDOMEN: Soft , mild tenderness EXTREMITIES: No edema feet - Labs CBC & Chem 7: 06/17/23 05:30 05/04/24 05:30 Labs: Abnormal Lab Results - Last 24 Hours (Table) 06/16/23 06/16/23 Range/Units 04:20 04:20 RBC 3.70 L (3.80-5.40) m/uL Plt Count 669 H (150-450) k/uL Sodium 128 L (137-145) mmol/L Chloride 91 L (98-107) mmol/L Carbon Dioxide 36 H (22-30) mmol/L BUN 4 L (7-17) mg/dL Creatinine 0.35 L (0.52-1.04) mg/dL Calcium 7.7 L (8.4-10.2) mg/dL Microbiology - Last 24 Hours (Table) 06/12/23 05:50 Blood Culture - Preliminary Blood Assessment and Plan (1) Diverticulitis Current Visit: Yes Status: Acute Code(s): K57.92 - DVTRCLI OF INTEST, PART UNSP, W/O PERF OR ABSCESS W/O BLEED SNOMED Code(s): 074195496 (2) Failure of outpatient treatment Current Visit: Yes Status: Acute Code(s): Z78.9 - OTHER SPECIFIED HEALTH STATUS SNOMED Code(s): 355833653 (3) Positive blood culture Current Visit: Yes Status: Acute Code(s): R78.81 - BACTEREMIA SNOMED Code(s): 339931413 Plan: 1patient was in the hospital abdominal pain and this patient has been diagnosed with acute diverticulitis failing outpatient oral Augmentin therapy CT did not mention any perforation or abscess. 2-patient did have a positive blood culture which has been finalized as bacillus species likely contamination, blood culture has been repeated and so far negative 3-patient is s/p exploratory laparotomy colectomy and colostomy, 4-patient is afebrile did have some worsening of the respiratory status and also have a productive cough sputum culture has been requested patient is covered with the Zosyn antibiotic to be discharged further on the basis of repeat culture Dictation was produced using [employer] dictation software. please excuse any grammatical, word or spelling errors. Time with Patient: Less than 30
--- NOTE | 2023-06-17 08:24 | XR ---
EXAMINATION TYPE: XR chest 1V portable DATE OF EXAM: 06/17/2023 COMPARISON: 06/16/2023 HISTORY: Shortness of breath TECHNIQUE: Single frontal view of the chest is obtained. FINDINGS: No change in the bibasilar opacities most likely reflecting pleural effusions. No change in the large interstitial opacity in the right upper lobe most likely reflecting an acute pneumonia. There is no pneumothorax. There is been no interval change compared to previous. IMPRESSION: No change in the acute cardiopulmonary disease described above.
--- NOTE | 2023-06-17 09:10 | PN ---
PROGRESS NOTE The patient remains in the 261 step-down ICU. She sat 94% on 6 L. Respiratory rate 12 to 14, pulse 70s to 90s. White count is 9.6, hemoglobin is 11.4. Sodium 128, potassium 3.9, BUN is 4, creatinine 0.35. ASSESSMENT: Acute sigmoid diverticulitis, acute hypoxemic hypercapnic respiratory failure, abdominal surgery with ovary and tube removal, gram-positive bacillus in the blood. Rule out anaerobic substance, on Zosyn, COPD, history of right upper lobe cystic change with enlarging pulmonary nodule. History of nicotine addiction, GERD, status post colectomy. Continue to monitor. Wean off oxygen. Send off ICU when she is clinically improving. Prognosis guarded. Please see further orders. MMODL / IJN: [id number] /
--- NOTE | 2023-06-17 10:14 | P.PN ---
Subjective Progress Note Date: 06/17/23 RAEEON. No N/V. No F/C. No SOB or CP. Tolerating CLD. Good UOP in [place] seen. No ambulation. Off Bipap at time of evaluation. Objective - Vital Signs Vital signs: Vital Signs Temp 98 F 06/17/23 08:00 Pulse 100 06/17/23 09:30 Resp 16 06/17/23 09:00 BP 99/68 06/15/23 21:00 Pulse Ox 95 06/17/23 09:14 FiO2 45 06/17/23 07:00 Intake & Output 06/16/23 06/17/23 06/17/23 18:59 06:59 18:59 Intake Total 936 1014 421 Output Total 939 1045 375 Balance -3 -31 46 Weight 71.4 kg 72 kg Intake: IV 936 1014 181 Lactated Ringers 1,000 ml 900 975 75 @ 75 mls/hr IV .[id number] [facility] Rx#:[id number] Piperacillin-Tazobactam 3 100 .375 gm In Sodium Chloride 0.9% 100 ml @ 25 mls/hr IVPB Q8HR [facility] Rx# :[id number] pressure bag 36 39 6 Tube Feeding 240 Output: Urine 939 1045 375 Other: Voiding Method Indwelling Catheter Indwelling Catheter ABP, PAP, CO, CI - Last Documented Arterial Blood Pressure 148/65 - Exam Gen: AxO, NAD Pulm: non-labored respirations, on NC Abd: soft, mildly tender over incision, mildly distended. No guarding/rebound/rigidity Incisional wound vac intact producing scant serosang output Ostomy: pink and patent, bowel sweat seen, no gas or stool in bag Extrem: no edema seen - Labs CBC & Chem 7: 06/17/23 05:30 06/17/23 05:30 Labs: Abnormal Lab Results - Last 24 Hours (Table) 06/16/23 06/17/23 06/17/23 Range/Units 17:52 05:30 05:30 Plt Count 800 H (150-450) k/uL Lymphocytes # 0.5 L (1.0-4.8) k/uL Sodium 130 L (137-145) mmol/L Chloride 92 L (98-107) mmol/L Carbon Dioxide 33 H (22-30) mmol/L Creatinine 0.33 L (0.52-1.04) mg/dL Glucose 157 H (74-99) mg/dL POC Glucose (mg/dL) 188 H (70-110) mg/dL Calcium 8.3 L (8.4-10.2) mg/dL Assessment and Plan Assessment: Patient is a 63F who is POD#5 from [facility] Plan: -CLD as tolerated -IVF -IV abx -PRN pain and nausea control -DVT/GI PPx -Care per primary Ronn Xiong MD General Surgery
[2023-06-17 12:05] LABS: Glucose,Whole Blood 171 mg/dL (70-110)
--- NOTE | 2023-06-17 12:48 | PN ---
PROGRESS NOTE She remains in the ICU. Sodium is 130, potassium is 4.3, carbon dioxide 33, down from 36, creatinine 0.33. She is recovering status post colectomy. She is nonlabored. Pulse is 100s to 90s. She has wean down her oxygen saturation to 95% on 4 L. She is doing better. Her labs are all improved. OBJECTIVE: CARDIOVASCULAR: S1, S2. LUNGS: Decreased breath sounds x4. Chest x-ray shows no changes, acute cardiopulmonary disease. No change show opacity in the right upper lobe, most likely reflecting a pneumonia. She is on broad- spectrum antibiotics. She is improving slowly. Continue current antibiotics. She is on Lovenox for DVT prophylaxis. She is on magnesium we placed her on. She remains on Zosyn. Potassium replacement protocol. Pain control. IV Solu-Medrol. Prognosis guarded. Continue current treatment. MMODL / IJN: [id number] /
--- NOTE | 2023-06-17 13:11 | P.PN ---
Subjective Progress Note Date: 06/17/23 I was asked to evaluate this patient for a preoperative pulmonary clearance. The patient will be taken to the operating room today. The patient has an acute sigmoid diverticulitis with failed outpatient treatment. The patient continued to complain of abdominal pain. She was having no improvement in terms of her pain. She continued to have pain across her lower abdomen. The plan was to take this patient to the operating room for surgical exploration. CAT scan of the abdomen and pelvis that was done yesterday reported similar finding of the sigmoid colon consistent with acute diverticulitis and the patient small bilateral pleural effusions developed along with compressive atelectatic changes in lung bases. In terms of her pulmonary status, the patient is known to have COPD. The patient also has a pulmonary nodule in the right middle lobe area near the minor fissure measuring about 10 mm in size which has been progressively increasing since 2019 and additional right upper lobe pulmonary nodule measuring 13 x 6 mm in size. There is also a right upper lobe chronic cystic change which has been present on previous CAT scans of the chest. No evidence of any airspace disease or consolidation. The patient also has a T7 vertebral compression fractures. At the time of my evaluation, the patient was on 4 L of oxygen by nasal cannula with a pulse ox 92%. She was having some respiratory distress at rest. According to the , the patient has been active and the patient has been able to walk half to 1 block without having any major difficulties. She has been doing activities of day-to-day life yet but overall exercise capacity has been quite limited due to her COPD. I have evaluated this patient in the past and the patient was seen in a previous hospitalization back in December 2022 for an acute COPD exacerbation. At that time, the chronic cystic changes along with the scarring in the right upper lobe was also noted in addition to the pulmonary nodules that were discussed. The patient is a chronic smoker. Labs show a WBC count of 10.9 with hemoglobin 11.3 and platelet count of 485. Normal renal function. Electrolytes are normal. Lactic acid level is at 0.5. The blood cultures showing gram-positive bacillus in the blood, rule out an anaerobic infection. This was however seen and only 1 out of 2 blood cultures. The patient is currently on Zosyn and infectious disease also on the case. 06/13/2023, the patient is being seen for a follow-up. The patient underwent an abdominal surgery yesterday and following that the patient was kept intubated on the mechanical ventilator. Surgery included sigmoid colectomy and end colostomy and partial omentectomy along with exploratory laparotomy. The patient was found to have a inflammatory mass causing colonic obstruction at the level of the sigmoid. The patient is currently postop day #1. She is on propofol running at 20 mcg/kg/min. She is also lactated Ringer at 125 cc an hour. She had a mechanical ventilator on assist-control mode with rate of 18, tidal volume of 400, FiO2 of 45% with a PEEP of 5. The blood gas showed a pH of 7.33 with a pCO2 of 51 and pO2 of 79. Chest x-ray from this morning shows no abnormalities in regards to the position of the orotracheal tube and NG tube. The patient has evidence of bilateral consolidation and small pleural effusions along with background COPD. The WBC count at 13.4 with a hemoglobin of 11.5 and a platelet count of 549. Sodium is at 132, BUN is at 30 with a creatinine of 0.28 and a potassium level is at 4. The patient remains on IV Zosyn. The patient on Lovenox for DVT prophylaxis. The patient is also on bronchodilators. She is on no pressors for now. On today's evaluation of 06/14/2023, the patient is being seen for a follow-up. The patient is extubated. She is a bit weak. She is currently complaining of abdominal pain. Colostomy site is nonfunctional at this point in time. No significant output. Bowel sounds remain hypoactive. The patient is seen Dilaudid for pain control. She remains on IV Zosyn. She is still on 5 L of oxygen by nasal cannula. Chest x-ray that was done today shows some increased atelectatic changes in the lungs patient has some limited bibasilar infiltrates and probably a component of fluid overload. The patient is on 5 L of oxygen by nasal cannula. She is off the BiPAP. She is on lactated Ringer which is running at 125 cc an hour. Fluid balance is +1.4 L over the past 24 hours. The blood work from today shows a WBC count of 10.3 with a hemoglobin 10.7 and a platelet count of 562. BUN is 8 with a creatinine of 0.33 and a sodium level is at 134. She is awake and alert and she is also communicating. She remains on IV Zosyn. No pressors for now. She is on Lovenox 40 mg subcu for DVT prophylaxis. In terms of her abdominal wound, the patient has a superficial wound VAC which is in place. No emesis at this point in time. No abdominal distention. She is on lactated Ringer at rate of 125 cc an hour. The patient remains NPO. On today's evaluation on 06/16/2023, seen the patient for a follow-up. Overnight, the patient became more short of breath and the patient accordingly was placed on a BiPAP. She is on a BiPAP this morning and she is resting comfortably in bed at a pressure of 10/5 with an FiO2 of 45%. Repeat chest x-ray from today showing bilateral infiltrates and pleural effusion with a background COPD. The patient is tolerating the BiPAP reasonably well. At the same time, the patient remains in a normal state rate of 75 cc an hour. Fluid balance over the past 24 hours has been -1.3 L. At the same time, the colostomy output is improved and the site is viable. Surgical wound site is dry clean and intact. No abdominal distention or abdominal pain. The patient is currently NPO. The white cell count is at 9.6 with a hemoglobin 11.4 and a platelet count of 669 and the BUN is at 4 with a creatinine of 0.35, sodium level is at 128. Remains on IV Zosyn. Remains on bronchodilators. She has increased bronchospasm and wheezing and based on that I am going to start her on IV Solu-Medrol 40 mg every 8 hours. She is responsive, alert and awake. Quite lethargic. She is unable to communicate. No issues with pain at this point in time. On 06/17/2023, the patient is improved and she is currently off the BiPAP and the patient is currently on 40 subjective by nasal cannula. Less bronchospastic and wheezy. Using incentive spirometer as she is pulling approximately 1200. She is taking clear liquid diet. Colostomy site is functional. No significant abdominal pain. Remains on bronchodilators. Remains on steroids. Remains on IV Zosyn. Surgical wound is dry clean and intact. Awake and alert and communicating. The white cell count at 7.2 with a hemoglobin of 11 and a platelet count of 800. BUN is at 8 with a creatinine of 0.33 and a sodium levels at 130 with a potassium level of 4.3. Objective - Vital Signs Vital signs: Vital Signs Temp 98 F 06/17/23 08:00 Pulse 100 06/17/23 09:30 Resp 16 06/17/23 09:00 BP 99/68 06/15/23 21:00 Pulse Ox 95 06/17/23 09:14 FiO2 45 06/17/23 07:00 Intake & Output 06/16/23 06/17/23 06/17/23 18:59 06:59 18:59 Intake Total 936 1014 421 Output Total 939 1045 375 Balance -3 -31 46 Weight 71.4 kg 72 kg Intake: IV 936 1014 181 Lactated Ringers 1,000 ml 900 975 75 @ 75 mls/hr IV .[id number] [facility] Rx#:[id number] Piperacillin-Tazobactam 3 100 .375 gm In Sodium Chloride 0.9% 100 ml @ 25 mls/hr IVPB Q8HR [facility] Rx# :[id number] pressure bag 36 39 6 Tube Feeding 240 Output: Urine 939 1045 375 Other: Voiding Method Indwelling Catheter Indwelling Catheter ABP, PAP, CO, CI - Last Documented Arterial Blood Pressure 148/65 - Exam General appearance,, comfortable currently on oxygen at 4 L nasal cannula Head exam was generally normal. There was no scleral icterus or corneal arcus. Mucous membranes were moist. Neck was supple and without jugular venous distension, thyromegaly, or carotid bruits. Carotids were easily palpable bilaterally. There was no adenopathy. Lung sounds are with diminished bilaterally along with few scattered expiratory wheeze Cardiac exam revealed the PMI to be normally situated and sized. The rhythm was regular and no extrasystoles were noted during several minutes of auscultation. The first and second heart sounds were normal and physiologic splitting of the second heart sound was noted. There were no murmurs, rubs, clicks, or gallops. Examination of the abdomen is soft and the patient has a viable colostomy in the left lower quadrant area. No direct tenderness or moderate to guarding. Liquidy output in the colostomy bag. Bowel sounds are hypoactive. Examination of the extremities revealed easily palpable radial, femoral and pedal pulses. There was no cyanosis, clubbing or edema. Examination of the skin revealed no evidence of significant rashes, suspicious appearing nevi or other concerning lesions. Neurologically, patient is lethargic yet arousable. She answers simple questions. She following commands and answering questions appropriately. No focal neurological deficits. - Labs CBC & Chem 7: 06/17/23 05:30 06/17/23 05:30 Labs: Abnormal Lab Results - Last 24 Hours (Table) 06/16/23 06/17/23 06/17/23 Range/Units 17:52 05:30 05:30 Plt Count 800 H (150-450) k/uL Lymphocytes # 0.5 L (1.0-4.8) k/uL Sodium 130 L (137-145) mmol/L Chloride 92 L (98-107) mmol/L Carbon Dioxide 33 H (22-30) mmol/L Creatinine 0.33 L (0.52-1.04) mg/dL Glucose 157 H (74-99) mg/dL POC Glucose (mg/dL) 188 H (70-110) mg/dL Calcium 8.3 L (8.4-10.2) mg/dL 06/17/23 Range/Units 12:04 Plt Count (150-450) k/uL Lymphocytes # (1.0-4.8) k/uL Sodium (137-145) mmol/L Chloride (98-107) mmol/L Carbon Dioxide (22-30) mmol/L Creatinine (0.52-1.04) mg/dL Glucose (74-99) mg/dL POC Glucose (mg/dL) 171 H (70-110) mg/dL Calcium (8.4-10.2) mg/dL Microbiology - Last 24 Hours (Table) 06/12/23 05:50 Blood Culture - Final Blood Assessment and Plan Plan: Acute sigmoid diverticulitis, patient is status post exploratory laparotomy, partial omentectomy, sigmoid colectomy and end colostomy. The patient is postop day # 5. Patient remains on IV Zosyn. Hemodynamically stable. The patient re delmi in intensive care unit. Surgical wound site is dry clean and intact. She remains on IV Zosyn. The patient is tolerating clear liquid diet. Positive output in the colostomy bag. Acute hypoxic/hypercapnic respiratory failure following abdominal surgery and the patient extubated. Postextubation, the patient required on and off BiPAP therapy and the patient is currently on 4 L of oxygen by nasal cannula. She does have a component of COPD exacerbation which was treated with a combination of bronchodilators and steroids. Abdominal pain secondary to above, currently stable, improved Gram-positive bacillus in the blood, rule out anaerobic septicemia, currently on IV Zosyn Chronic COPD exacerbation with shortness of breath. The patient is known to have chronic COPD maintain on accommodation Symbicort and Spiriva and albuterol updrafts on outpatient basis History of a right upper lobe cavitary cystic changes along with an enlarging pulmonary nodule which seems to be suspicious for malignancy. This can be worked up on outpatient basis at the later stage. Right middle lobe pulmonary nodule being monitored on outpatient basis History of smoking History of smoking Acid reflux Sigmoid diverticulosis Left adnexal mass measuring 5.7 cm in size identified on a CAT scan of the abdomen and pelvis that was done on 04/12/2022, MRI was followed on 06/25/2022 showing a cystic lesion versus multiple simple cysts versus cystic neoplasm. Plan Keep the patient on 4 L Aggressive pulmonary toileting and use of incentive spirometer Continue bronchodilators Continue Solu-Medrol 40 mg 8 hours Continue IV Zosyn IV fluids with normal saline at rate of 75 cc an hour Currently on clear liquid diet Lovenox for DVT prophylaxis Pain control Will continue to follow make further recommendations based on her progress. Will continue to follow
--- NOTE | 2023-06-17 13:15 | P.PN ---
Subjective Progress Note Date: 06/17/23 Principal diagnosis: Reason for follow-up is diverticulitis failed outpatient therapy and positive blood culture Patient is a 63-year-old female with a past medical history significant for COPD reflux anxiety depression former smoker presenting to the hospital for evaluation of abdominal pain with recent diagnosis of diverticulitis failing outpatient oral Augmentin therapy.Patient is status post exploratory laparotomy sigmoid colectomy with end colostomy and partial pneumonectomy procedure completed on 06/12/2023 patient was subsequent admitted to the ICU on the vent and the patient has been extubated morning of 06/13/2023 On today's evaluation that is 06/17/2023,the patient denies any fever or any chills, patient is breathing comfortably on 4 L nasal cannula oxygen the patient denies chest pain some shortness of breath and cough but not bringing up sputum abdominal pain is currently controlled with pain medication no significant output in the colostomy has been started on a clear liquid diet by surgery. Patient with a white count of 7.2, creatinine 0.33 blood culture repeat has been negative Objective - Vital Signs Vital signs: Vital Signs Temp 98 F 06/17/23 08:00 Pulse 100 06/17/23 09:30 Resp 16 06/17/23 09:00 BP 99/68 06/15/23 21:00 Pulse Ox 95 06/17/23 09:14 FiO2 45 06/17/23 07:00 Intake & Output 06/16/23 06/17/23 06/17/23 18:59 06:59 18:59 Intake Total 936 1014 421 Output Total 939 1045 375 Balance -3 -31 46 Weight 71.4 kg 72 kg Intake: IV 936 1014 181 Lactated Ringers 1,000 ml 900 975 75 @ 75 mls/hr IV .[id number] [facility] Rx#:[id number] Piperacillin-Tazobactam 3 100 .375 gm In Sodium Chloride 0.9% 100 ml @ 25 mls/hr IVPB Q8HR [facility] Rx# :[id number] pressure bag 36 39 6 Tube Feeding 240 Output: Urine 939 1045 375 Other: Voiding Method Indwelling Catheter Indwelling Catheter ABP, PAP, CO, CI - Last Documented Arterial Blood Pressure 148/65 - Exam GENERAL DESCRIPTION: Middle-aged female up in bed in no distress RESPIRATORY SYSTEM: Unlabored breathing , decreased breath sounds at bases HEART: S1 S2 regular rate and rhythm , ABDOMEN: Soft , mild tenderness EXTREMITIES: No edema feet - Labs CBC & Chem 7: 06/17/23 05:30 06/17/23 05:30 Labs: Abnormal Lab Results - Last 24 Hours (Table) 06/16/23 06/17/23 06/17/23 Range/Units 17:52 05:30 05:30 Plt Count 800 H (150-450) k/uL Lymphocytes # 0.5 L (1.0-4.8) k/uL Sodium 130 L (137-145) mmol/L Chloride 92 L (98-107) mmol/L Carbon Dioxide 33 H (22-30) mmol/L Creatinine 0.33 L (0.52-1.04) mg/dL Glucose 157 H (74-99) mg/dL POC Glucose (mg/dL) 188 H (70-110) mg/dL Calcium 8.3 L (8.4-10.2) mg/dL 06/17/23 Range/Units 12:04 Plt Count (150-450) k/uL Lymphocytes # (1.0-4.8) k/uL Sodium (137-145) mmol/L Chloride (98-107) mmol/L Carbon Dioxide (22-30) mmol/L Creatinine (0.52-1.04) mg/dL Glucose (74-99) mg/dL POC Glucose (mg/dL) 171 H (70-110) mg/dL Calcium (8.4-10.2) mg/dL Assessment and Plan (1) Diverticulitis Current Visit: Yes Status: Acute Code(s): K57.92 - DVTRCLI OF INTEST, PART UNSP, W/O PERF OR ABSCESS W/O BLEED SNOMED Code(s): 086270934 (2) Failure of outpatient treatment Current Visit: Yes Status: Acute Code(s): Z78.9 - OTHER SPECIFIED HEALTH STATUS SNOMED Code(s): 689093619 (3) Positive blood culture Current Visit: Yes Status: Acute Code(s): R78.81 - BACTEREMIA SNOMED Code(s): 574674187 Plan: 1patient was in the hospital abdominal pain and this patient has been diagnosed with acute diverticulitis failing outpatient oral Augmentin therapy CT did not mention any perforation or abscess. 2-patient did have a positive blood culture which has been finalized as bacillus species likely contamination, blood culture has been repeated and so far negative 3-patient is s/p exploratory laparotomy colectomy and colostomy, 4-patient is afebrile did have some worsening of the respiratory status and also have a productive cough sputum culture has been requested which are currently pending 5-patient to continue with Zosyn will monitor clinical course closely Dictation was produced using [employer] dictation software. please excuse any g rammatical, word or spelling errors. Time with Patient: Less than 30
--- NOTE | 2023-06-18 12:43 | P.PN ---
Subjective Progress Note Date: 06/18/23 I was asked to evaluate this patient for a preoperative pulmonary clearance. The patient will be taken to the operating room today. The patient has an acute sigmoid diverticulitis with failed outpatient treatment. The patient continued to complain of abdominal pain. She was having no improvement in terms of her pain. She continued to have pain across her lower abdomen. The plan was to take this patient to the operating room for surgical exploration. CAT scan of the abdomen and pelvis that was done yesterday reported similar finding of the sigmoid colon consistent with acute diverticulitis and the patient small bilateral pleural effusions developed along with compressive atelectatic changes in lung bases. In terms of her pulmonary status, the patient is known to have COPD. The patient also has a pulmonary nodule in the right middle lobe area near the minor fissure measuring about 10 mm in size which has been progressively increasing since 2019 and additional right upper lobe pulmonary nodule measuring 13 x 6 mm in size. There is also a right upper lobe chronic cystic change which has been present on previous CAT scans of the chest. No evidence of any airspace disease or consolidation. The patient also has a T7 vertebral compression fractures. At the time of my evaluation, the patient was on 4 L of oxygen by nasal cannula with a pulse ox 92%. She was having some respiratory distress at rest. According to the , the patient has been active and the patient has been able to walk half to 1 block without having any major difficulties. She has been doing activities of day-to-day life yet but overall exercise capacity has been quite limited due to her COPD. I have evaluated this patient in the past and the patient was seen in a previous hospitalization back in December 2022 for an acute COPD exacerbation. At that time, the chronic cystic changes along with the scarring in the right upper lobe was also noted in addition to the pulmonary nodules that were discussed. The patient is a chronic smoker. Labs show a WBC count of 10.9 with hemoglobin 11.3 and platelet count of 485. Normal renal function. Electrolytes are normal. Lactic acid level is at 0.5. The blood cultures showing gram-positive bacillus in the blood, rule out an anaerobic infection. This was however seen and only 1 out of 2 blood cultures. The patient is currently on Zosyn and infectious disease also on the case. 06/13/2023, the patient is being seen for a follow-up. The patient underwent an abdominal surgery yesterday and following that the patient was kept intubated on the mechanical ventilator. Surgery included sigmoid colectomy and end colostomy and partial omentectomy along with exploratory laparotomy. The patient was found to have a inflammatory mass causing colonic obstruction at the level of the sigmoid. The patient is currently postop day #1. She is on propofol running at 20 mcg/kg/min. She is also lactated Ringer at 125 cc an hour. She had a mechanical ventilator on assist-control mode with rate of 18, tidal volume of 400, FiO2 of 45% with a PEEP of 5. The blood gas showed a pH of 7.33 with a pCO2 of 51 and pO2 of 79. Chest x-ray from this morning shows no abnormalities in regards to the position of the orotracheal tube and NG tube. The patient has evidence of bilateral consolidation and small pleural effusions along with background COPD. The WBC count at 13.4 with a hemoglobin of 11.5 and a platelet count of 549. Sodium is at 132, BUN is at 30 with a creatinine of 0.28 and a potassium level is at 4. The patient remains on IV Zosyn. The patient on Lovenox for DVT prophylaxis. The patient is also on bronchodilators. She is on no pressors for now. On today's evaluation of 06/14/2023, the patient is being seen for a follow-up. The patient is extubated. She is a bit weak. She is currently complaining of abdominal pain. Colostomy site is nonfunctional at this point in time. No significant output. Bowel sounds remain hypoactive. The patient is seen Dilaudid for pain control. She remains on IV Zosyn. She is still on 5 L of oxygen by nasal cannula. Chest x-ray that was done today shows some increased atelectatic changes in the lungs patient has some limited bibasilar infiltrates and probably a component of fluid overload. The patient is on 5 L of oxygen by nasal cannula. She is off the BiPAP. She is on lactated Ringer which is running at 125 cc an hour. Fluid balance is +1.4 L over the past 24 hours. The blood work from today shows a WBC count of 10.3 with a hemoglobin 10.7 and a platelet count of 562. BUN is 8 with a creatinine of 0.33 and a sodium level is at 134. She is awake and alert and she is also communicating. She remains on IV Zosyn. No pressors for now. She is on Lovenox 40 mg subcu for DVT prophylaxis. In terms of her abdominal wound, the patient has a superficial wound VAC which is in place. No emesis at this point in time. No abdominal distention. She is on lactated Ringer at rate of 125 cc an hour. The patient remains NPO. On today's evaluation on 06/16/2023, seen the patient for a follow-up. Overnight, the patient became more short of breath and the patient accordingly was placed on a BiPAP. She is on a BiPAP this morning and she is resting comfortably in bed at a pressure of 10/5 with an FiO2 of 45%. Repeat chest x-ray from today showing bilateral infiltrates and pleural effusion with a background COPD. The patient is tolerating the BiPAP reasonably well. At the same time, the patient remains in a normal state rate of 75 cc an hour. Fluid balance over the past 24 hours has been -1.3 L. At the same time, the colostomy output is improved and the site is viable. Surgical wound site is dry clean and intact. No abdominal distention or abdominal pain. The patient is currently NPO. The white cell count is at 9.6 with a hemoglobin 11.4 and a platelet count of 669 and the BUN is at 4 with a creatinine of 0.35, sodium level is at 128. Remains on IV Zosyn. Remains on bronchodilators. She has increased bronchospasm and wheezing and based on that I am going to start her on IV Solu-Medrol 40 mg every 8 hours. She is responsive, alert and awake. Quite lethargic. She is unable to communicate. No issues with pain at this point in time. On 06/17/2023, the patient is improved and she is currently off the BiPAP and the patient is currently on 40 subjective by nasal cannula. Less bronchospastic and wheezy. Using incentive spirometer as she is pulling approximately 1200. She is taking clear liquid diet. Colostomy site is functional. No significant abdominal pain. Remains on bronchodilators. Remains on steroids. Remains on IV Zosyn. Surgical wound is dry clean and intact. Awake and alert and communicating. The white cell count at 7.2 with a hemoglobin of 11 and a platelet count of 800. BUN is at 8 with a creatinine of 0.33 and a sodium levels at 130 with a potassium level of 4.3. 06/18/2023, patient is being seen for a follow-up. Doing well. Appetite is improved and the patient is requesting to advance her diet. She is currently on clear liquid diet. Colostomy is functional. No significant respiratory distress and the patient is currently on 4 L of O2 nasal cannula with pulse ox 98%. She is using incentive spirometry. No abdominal pain or distention. She was moved out of the intensive care unit. The white cell count 7.2 with hemoglobin 11 and the BUN is at 8 with a creatinine of 0.33 and a sodium level is 130. Objective - Vital Signs Vital signs: Vital Signs Temp 97.5 F L 06/18/23 07:43 Pulse 68 06/18/23 08:00 Resp 18 06/18/23 07:43 BP 137/78 06/18/23 07:43 Pulse Ox 98 06/18/23 07:50 FiO2 45 06/18/23 00:35 Intake & Output 06/17/23 06/18/23 06/18/23 18:59 06:59 18:59 Intake Total 421 540 Output Total 375 700 Balance 46 -160 Intake: IV 181 Lactated Ringers 1,000 ml 75 @ 75 mls/hr IV .[id number] [facility] Rx#:[id number] Piperacillin-Tazobactam 3 100 .375 gm In Sodium Chloride 0.9% 100 ml @ 25 mls/hr IVPB Q8HR [facility] Rx# :[id number] pressure bag 6 Oral 540 Tube Feeding 240 Output: Urine 375 700 Other: Voiding Method Indwelling Catheter ABP, PAP, CO, CI - Last Documented Arterial Blood Pressure 148/65 - Exam General appearance,, comfortable currently on oxygen at 4 L nasal cannula Head exam was generally normal. There was no scleral icterus or corneal arcus. Mucous membranes were moist. Neck was supple and without jugular venous distension, thyromegaly, or carotid bruits. Carotids were easily palpable bilaterally. There was no adenopathy. Lung sounds are with diminished bilaterally along with few scattered expiratory wheeze Cardiac exam revealed the PMI to be normally situated and sized. The rhythm was regular and no extrasystoles were noted during several minutes of auscultation. The first and second heart sounds were normal and physiologic splitting of the second heart sound was noted. There were no murmurs, rubs, clicks, or gallops. Examination of the abdomen is soft and the patient has a viable colostomy in the left lower quadrant area. No direct tenderness or moderate to guarding. Liquidy output in the colostomy bag. Bowel sounds are hypoactive. Examination of the extremities revealed easily palpable radial, femoral and pedal pulses. There was no cyanosis, clubbing or edema. Examination of the skin revealed no evidence of significant rashes, suspicious appearing nevi or other concerning lesions. Neurologically, patient is lethargic yet arousable. She answers simple questions. She following commands and answering questions appropriately. No focal neurological deficits. - Labs CBC & Chem 7: 06/17/23 05:30 06/17/23 05:30 Labs: Abnormal Lab Results - Last 24 Hours (Table) 06/17/23 Range/Units 12:04 POC Glucose (mg/dL) 171 H (70-110) mg/dL Microbiology - Last 24 Hours (Table) 06/12/23 05:50 Blood Culture - Final Blood Assessment and Plan Plan: Acute sigmoid diverticulitis, patient is status post exploratory laparotomy, partial omentectomy, sigmoid colectomy and end colostomy. The patient is postop day # 6. Patient remains on IV Zosyn. Hemodynamically stable. The patient remains in intensive care unit. Surgical wound site is dry clean and intact. She remains on IV Zosyn. The patient is tolerating clear liquid diet. Positive output in the colostomy bag. Acute hypoxic/hypercapnic respiratory failure following abdominal surgery and the patient extubated. Postextubation, the patient required on and off BiPAP therapy and the patient is currently on 4 L of oxygen by nasal cannula. She does have a component of COPD exacerbation which was treated with a combination of bronchodilators and steroids. Abdominal pain secondary to above, currently stable, improved Gram-positive bacillus in the blood, rule out anaerobic septicemia, currently on IV Zosyn Chronic COPD exacerbation with shortness of breath. The patient is known to have chronic COPD maintain on accommodation Symbicort and Spiriva and albuterol updrafts on outpatient basis History of a right upper lobe cavitary cystic changes along with an enlarging pulmonary nodule which seems to be suspicious for malignancy. This can be worked up on outpatient basis at the later stage. Right middle lobe pulmonary nodule being monitored on outpatient basis History of smoking History of smoking Acid reflux Sigmoid diverticulosis Left adnexal mass measuring 5.7 cm in size identified on a CAT scan of the abdomen and pelvis that was done on 04/12/2022, MRI was followed on 06/25/2022 showing a cystic lesion versus multiple simple cysts versus cystic neoplasm. Plan Patient is stable and the patient got transferred out of the intensive care unit Keep the patient on 4 L Aggressive pulmonary toileting and use of incentive spirometer Continue bronchodilators Continue Solu-Medrol 40 mg 8 hours for another 24 hours Continue IV Zosyn IV fluids KVO advance diet to soft Currently on clear liquid diet Lovenox for DVT prophylaxis Pain control Will continue to follow make further recommendations based on her progress. Will continue to follow
--- NOTE | 2023-06-18 15:46 | P.PN ---
Subjective Progress Note Date: 06/18/23 CHIEF COMPLAINT: Abdominal pain due to diverticulitis HISTORY OF PRESENT ILLNESS: The patient is a 63-year-old female status post colostomy with colectomy for failed outpatient diverticulitis management. She denies moderate abdominal pain. She is sitting up in a chair. She is tolerating clear liquid diet. She reports she wants to eat normal food. ROS: No reports of nausea and vomiting. No fevers or chills. No new chest pain. PHYSICAL EXAM: VITAL SIGNS: Reviewed CONSTITUTIONAL: Well developed and in no acute distress. EYES: Conjuctivae without sclera icterus. Extraocular movements grossly intact. HEAD, EARS, NOSE, THROAT: Moist buccal mucosa. Head is atraumatic, normocephalic. Hears conversational speech. No nasal drainage. RESPIRATORY: Non-labored respirations and equal bilateral excursions. CARDIOVASCULAR: Palpable 2+ radial pulses. ABDOMEN: Ostomy with flatus. No stool. Dressing clean dry intact. MUSCULOSKELETAL: No gross deformity of the lower extremities noted. No clubbing. No cyanosis. SKIN: Good skin turgor. Well perfused. NEUROLOGIC: Cranial nerves II through XII grossly intact. No focal or lateralizing signs. PSYCH: Appropriate affect. Alert and oriented to person, place and time. CLINICAL LABS: Reviewed. WBC normal ASSESSMENT: 1. Diverticulitis with obstruction 2. Chronic struct of pulmonary disease 3. Status post colostomy for diverticulitis with obstruction PLAN: 1. Continue with clear liquid diet at this time as no stool within her ostomy. 2. Ambulation encouraged including physical therapy and Occupational Therapy 3. Recommend assessment for outpatient rehab Objective - Vital Signs Vital signs: Vital Signs Temp 97.7 F 06/18/23 14:25 Pulse 92 06/18/23 15:26 Resp 17 06/18/23 14:25 BP 122/76 06/18/23 14:25 Pulse Ox 85 L 06/18/23 15:14 FiO2 45 06/18/23 00:35 Intake & Output 06/17/23 06/18/23 06/18/23 18:59 06:59 18:59 Intake Total 421 540 Output Total 375 700 Balance 46 -160 Intake: IV 181 Lactated Ringers 1,000 ml 75 @ 75 mls/hr IV .[id number] [facility] Rx#:[id number] Piperacillin-Tazobactam 3 100 .375 gm In Sodium Chloride 0.9% 100 ml @ 25 mls/hr IVPB Q8HR [facility] Rx# :[id number] pressure bag 6 Oral 540 Tube Feeding 240 Output: Urine 375 700 Other: Voiding Method Indwelling Catheter ABP, PAP, CO, CI - Last Documented Arterial Blood Pressure 148/65 - Labs CBC & Chem 7: 06/17/23 05:30 06/17/23 05:30 Labs: Microbiology - Last 24 Hours (Table) 06/12/23 05:50 Blood Culture - Final Blood
--- NOTE | 2023-06-18 18:47 | P.PN ---
Subjective Progress Note Date: 06/18/23 Principal diagnosis: Reason for follow-up is diverticulitis failed outpatient therapy and positive blood culture Patient is a 63-year-old female with a past medical history significant for COPD reflux anxiety depression former smoker presenting to the hospital for evaluation of abdominal pain with recent diagnosis of diverticulitis failing outpatient oral Augmentin therapy.Patient is status post exploratory laparotomy sigmoid colectomy with end colostomy and partial pneumonectomy procedure completed on 06/12/2023 patient was subsequent admitted to the ICU on the vent and the patient has been extubated morning of 06/13/2023 On today's evaluation that is 06/18/2023,the patient remains to be afebrile, patient is on 3 L nasal cannula supplemental oxygen and denies any shortness of breath no chest pain or cough.Patient denies having any nausea or vomiting, abdominal pain has decreased in intensity still no significant output in the colostomy however the patient wants to eat. No new lab work drawn today Objective - Vital Signs Vital signs: Vital Signs Temp 97.7 F 06/18/23 14:25 Pulse 92 06/18/23 15:26 Resp 17 06/18/23 14:25 BP 122/76 06/18/23 14:25 Pulse Ox 85 L 06/18/23 15:14 FiO2 45 06/18/23 00:35 Intake & Output 06/17/23 06/18/23 06/18/23 18:59 06:59 18:59 Intake Total 421 540 Output Total 375 700 Balance 46 -160 Intake: IV 181 Lactated Ringers 1,000 ml 75 @ 10 mls/hr IV .Q24H [facility] Rx#:[id number] Piperacillin-Tazobactam 3 100 .375 gm In Sodium Chloride 0.9% 100 ml @ 25 mls/hr IVPB Q8HR [facility] Rx# :[id number] pressure bag 6 Oral 540 Tube Feeding 240 Output: Urine 375 700 Other: Voiding Method Indwelling Catheter # Voids 3 ABP, PAP, CO, CI - Last Documented Arterial Blood Pressure 148/65 - Exam GENERAL DESCRIPTION: Middle-aged female up in bed in no distress RESPIRATORY SYSTEM: Unlabored breathing , decreased breath sounds at bases HEART: S1 S2 regular rate and rhythm , ABDOMEN: Soft , mild tenderness EXTREMITIES: No edema feet - Labs CBC & Chem 7: 06/17/23 05:30 06/17/23 05:30 Assessment and Plan (1) Diverticulitis Current Visit: Yes Status: Acute Code(s): K57.92 - DVTRCLI OF INTEST, PART UNSP, W/O PERF OR ABSCESS W/O BLEED SNOMED Code(s): 445135418 (2) Failure of outpatient treatment Current Visit: Yes Status: Acute Code(s): Z78.9 - OTHER SPECIFIED HEALTH STATUS SNOMED Code(s): 695513094 (3) Positive blood culture Current Visit: Yes Status: Acute Code(s): R78.81 - BACTEREMIA SNOMED Code(s): 746915450 Plan: 1patient was in the hospital abdominal pain and this patient has been diagnosed with acute diverticulitis failing outpatient oral Augmentin therapy CT did not mention any perforation or abscess. 2-patient did have a positive blood culture which has been finalized as bacillus species likely contamination, blood culture has been repeated and so far negative 3-patient is s/p exploratory laparotomy colectomy and colostomy, 4-patient is afebrile did have some worsening of the respiratory status and also have a productive cough sputum culture has been negative and resistant pathogen 5-patient remains to be afebrile and white count has been normal continue Zosyn transition to oral antibiotic when oral intakes improves Dictation was produced using [employer] dictation software. please excuse any grammatical, word or spelling errors.
--- NOTE | 2023-06-19 03:40 | PN ---
PROGRESS NOTE SUBJECTIVE: 63-year-old female. Now she has been moved up to 483 out of the ICU. She is status post colectomy for diverticular abscess. She is doing better. Less bronchospastic, less wheezy, being treated for possible pneumonia too. Clear liquid diet. Colostomy is functional. She is on bronchodilators, steroids, IV Zosyn. She is communicating, sitting up in bed, on clear liquids. Hemoglobin is 11, platelets are 800, white count 7.2, BUN is 8, creatinine 0.33, sodium 130, potassium 4.3. OBJECTIVE: VITAL SIGNS: Blood pressure is about 100/60s. Remains on FiO2 45, pulse ox is 95. LUNGS: Scattered rhonchi and wheeze. CARDIOVASCULAR: S1, S2. NEUROLOGIC: Cranial nerves intact. PSYCH: She appears little sleepy and lethargic, but she is alert and oriented x3. Labs reviewed above. ASSESSMENT: 1. Acute sigmoid diverticulitis, status post omentectomy, sigmoid colectomy and colostomy. 2. Acute hypercapnic respiratory failure, gram-positive bacillus in stool, on IV Zosyn for possible pneumonia and possible bacteremia. 3. Chronic obstructive pulmonary disease exacerbation, cavitary lesion in the lungs, right middle lobe nodule. 4. Nicotine addiction. 5. Gastroesophageal reflux disease. 6. Sigmoid diverticulitis. 7. Left adnexal mass. PLAN: She is weaned her oxygen down to 4, bronchodilators, Solu-Medrol, Zosyn, and saline. PROGNOSIS: Guarded. Please see further orders. MMODL / IJN: [id number] /
--- NOTE | 2023-06-19 13:23 | P.PN ---
Subjective Progress Note Date: 06/19/23 I was asked to evaluate this patient for a preoperative pulmonary clearance. The patient will be taken to the operating room today. The patient has an acute sigmoid diverticulitis with failed outpatient treatment. The patient continued to complain of abdominal pain. She was having no improvement in terms of her pain. She continued to have pain across her lower abdomen. The plan was to take this patient to the operating room for surgical exploration. CAT scan of the abdomen and pelvis that was done yesterday reported similar finding of the sigmoid colon consistent with acute diverticulitis and the patient small bilateral pleural effusions developed along with compressive atelectatic changes in lung bases. In terms of her pulmonary status, the patient is known to have COPD. The patient also has a pulmonary nodule in the right middle lobe area near the minor fissure measuring about 10 mm in size which has been progressively increasing since 2019 and additional right upper lobe pulmonary nodule measuring 13 x 6 mm in size. There is also a right upper lobe chronic cystic change which has been present on previous CAT scans of the chest. No evidence of any airspace disease or consolidation. The patient also has a T7 vertebral compression fractures. At the time of my evaluation, the patient was on 4 L of oxygen by nasal cannula with a pulse ox 92%. She was having some respiratory distress at rest. According to the , the patient has been active and the patient has been able to walk half to 1 block without having any major difficulties. She has been doing activities of day-to-day life yet but overall exercise capacity has been quite limited due to her COPD. I have evaluated this patient in the past and the patient was seen in a previous hospitalization back in December 2022 for an acute COPD exacerbation. At that time, the chronic cystic changes along with the scarring in the right upper lobe was also noted in addition to the pulmonary nodules that were discussed. The patient is a chronic smoker. Labs show a WBC count of 10.9 with hemoglobin 11.3 and platelet count of 485. Normal renal function. Electrolytes are normal. Lactic acid level is at 0.5. The blood cultures showing gram-positive bacillus in the blood, rule out an anaerobic infection. This was however seen and only 1 out of 2 blood cultures. The patient is currently on Zosyn and infectious disease also on the case. 06/13/2023, the patient is being seen for a follow-up. The patient underwent an abdominal surgery yesterday and following that the patient was kept intubated on the mechanical ventilator. Surgery included sigmoid colectomy and end colostomy and partial omentectomy along with exploratory laparotomy. The patient was found to have a inflammatory mass causing colonic obstruction at the level of the sigmoid. The patient is currently postop day #1. She is on propofol running at 20 mcg/kg/min. She is also lactated Ringer at 125 cc an hour. She had a mechanical ventilator on assist-control mode with rate of 18, tidal volume of 400, FiO2 of 45% with a PEEP of 5. The blood gas showed a pH of 7.33 with a pCO2 of 51 and pO2 of 79. Chest x-ray from this morning shows no abnormalities in regards to the position of the orotracheal tube and NG tube. The patient has evidence of bilateral consolidation and small pleural effusions along with background COPD. The WBC count at 13.4 with a hemoglobin of 11.5 and a platelet count of 549. Sodium is at 132, BUN is at 30 with a creatinine of 0.28 and a potassium level is at 4. The patient remains on IV Zosyn. The patient on Lovenox for DVT prophylaxis. The patient is also on bronchodilators. She is on no pressors for now. On today's evaluation of 06/14/2023, the patient is being seen for a follow-up. The patient is extubated. She is a bit weak. She is currently complaining of abdominal pain. Colostomy site is nonfunctional at this point in time. No significant output. Bowel sounds remain hypoactive. The patient is seen Dilaudid for pain control. She remains on IV Zosyn. She is still on 5 L of oxygen by nasal cannula. Chest x-ray that was done today shows some increased atelectatic changes in the lungs patient has some limited bibasilar infiltrates and probably a component of fluid overload. The patient is on 5 L of oxygen by nasal cannula. She is off the BiPAP. She is on lactated Ringer which is running at 125 cc an hour. Fluid balance is +1.4 L over the past 24 hours. The blood work from today shows a WBC count of 10.3 with a hemoglobin 10.7 and a platelet count of 562. BUN is 8 with a creatinine of 0.33 and a sodium level is at 134. She is awake and alert and she is also communicating. She remains on IV Zosyn. No pressors for now. She is on Lovenox 40 mg subcu for DVT prophylaxis. In terms of her abdominal wound, the patient has a superficial wound VAC which is in place. No emesis at this point in time. No abdominal distention. She is on lactated Ringer at rate of 125 cc an hour. The patient remains NPO. On today's evaluation on 06/16/2023, seen the patient for a follow-up. Overnight, the patient became more short of breath and the patient accordingly was placed on a BiPAP. She is on a BiPAP this morning and she is resting comfortably in bed at a pressure of 10/5 with an FiO2 of 45%. Repeat chest x-ray from today showing bilateral infiltrates and pleural effusion with a background COPD. The patient is tolerating the BiPAP reasonably well. At the same time, the patient remains in a normal state rate of 75 cc an hour. Fluid balance over the past 24 hours has been -1.3 L. At the same time, the colostomy output is improved and the site is viable. Surgical wound site is dry clean and intact. No abdominal distention or abdominal pain. The patient is currently NPO. The white cell count is at 9.6 with a hemoglobin 11.4 and a platelet count of 669 and the BUN is at 4 with a creatinine of 0.35, sodium level is at 128. Remains on IV Zosyn. Remains on bronchodilators. She has increased bronchospasm and wheezing and based on that I am going to start her on IV Solu-Medrol 40 mg every 8 hours. She is responsive, alert and awake. Quite lethargic. She is unable to communicate. No issues with pain at this point in time. On 06/17/2023, the patient is improved and she is currently off the BiPAP and the patient is currently on 40 subjective by nasal cannula. Less bronchospastic and wheezy. Using incentive spirometer as she is pulling approximately 1200. She is taking clear liquid diet. Colostomy site is functional. No significant abdominal pain. Remains on bronchodilators. Remains on steroids. Remains on IV Zosyn. Surgical wound is dry clean and intact. Awake and alert and communicating. The white cell count at 7.2 with a hemoglobin of 11 and a platelet count of 800. BUN is at 8 with a creatinine of 0.33 and a sodium levels at 130 with a potassium level of 4.3. 06/18/2023, patient is being seen for a follow-up. Doing well. Appetite is improved and the patient is requesting to advance her diet. She is currently on clear liquid diet. Colostomy is functional. No significant respiratory distress and the patient is currently on 4 L of O2 nasal cannula with pulse ox 98%. She is using incentive spirometry. No abdominal pain or distention. She was moved out of the intensive care unit. The white cell count 7.2 with hemoglobin 11 and the BUN is at 8 with a creatinine of 0.33 and a sodium level is 130. The patient is seen June 19, 2023 in follow-up on the regular medical floor. She is currently resting comfortably in bed. Awake and alert in no acute distress. She is maintaining good O2 saturations in the 90s on 3 L/min per nasal cannula. She is been afebrile. Hemodynamically stable. Follow-up blood cultures revealed no growth. She remains on DuoNeb ventilations, Symbicort, Solu-Medrol antibiotics in the form of Zosyn. Lovenox for DVT prophylaxis. Ostomy is functional. She is tolerating a full liquid diet. Objective - Vital Signs Vital signs: Vital Signs Temp 97.6 F 06/19/23 07:05 Pulse 88 06/19/23 09:26 Resp 17 06/19/23 08:00 BP 137/82 06/19/23 07:05 Pulse Ox 93 L 06/19/23 07:05 FiO2 45 06/18/23 00:35 Intake & Output 06/18/23 06/19/23 06/19/23 18:59 06:59 18:59 Intake Total 700 Output Total 700 Balance 0 Intake: Oral 700 Output: Urine 700 Other: Voiding Method Indwelling Catheter Indwelling Catheter Indwelling Catheter # Voids 3 3 ABP, PAP, CO, CI - Last Documented Arterial Blood Pressure 148/65 - Exam General appearance,, a pleasant 63-year-old female, comfortable currently on oxygen at 3 L nasal cannula Head exam was generally normal. There was no scleral icterus or corneal arcus. Mucous membranes were moist. Neck was supple and without jugular venous distension, thyromegaly, or carotid bruits. Carotids were easily palpable bilaterally. There was no adenopathy. Lung sounds are with diminished bilaterally along with few scattered expiratory wheeze Cardiac exam revealed the PMI to be normally situated and sized. The rhythm was regular and no extrasystoles were noted during several minutes of auscultation. The first and second heart sounds were normal and physiologic splitting of the second heart sound was noted. There were no murmurs, rubs, clicks, or gallops. Examination of the abdomen is soft and the patient has a viable colostomy in the left lower quadrant area. No direct tenderness or moderate to guarding. Liquidy output in the colostomy bag. Bowel sounds are hypoactive. Examination of the extremities revealed easily palpable radial, femoral and pedal pulses. There was no cyanosis, clubbing or edema. Examination of the skin revealed no evidence of significant rashes, suspicious appearing nevi or other concerning lesions. Neurologically, patient is weak and alert. She answers simple questions. She following commands and answering questions appropriately. No focal neurological deficits. - Labs CBC & Chem 7: 06/17/23 05:30 06/17/23 05:30 Assessment and Plan Assessment: Acute sigmoid diverticulitis, patient is status post exploratory laparotomy, partial omentectomy, sigmoid colectomy and end colostomy. The patient is postop day # 6. Patient remains on IV Zosyn. Hemodynamically stable. The patient remains in intensive care unit. Surgical wound site is dry clean and intact. She remains on IV Zosyn. The patient is tolerating clear liquid diet. Positive output in the colostomy bag. Acute hypoxic/hypercapnic respiratory failure following abdominal surgery and the patient extubated. Postextubation, the patient required on and off BiPAP therapy and the patient is currently on 4 L of oxygen by nasal cannula. She does have a component of COPD exacerbation which was treated with a combination of bronchodilators and steroids. Abdominal pain secondary to above, currently stable, improved Gram-positive bacillus in the blood, rule out anaerobic septicemia, currently on IV Zosyn Chronic COPD exacerbation with shortness of breath. The patient is known to have chronic COPD maintain on accommodation Symbicort and Spiriva and albuterol updrafts on outpatient basis History of a right upper lobe cavitary cystic changes along with an enlarging pulmonary nodule which seems to be suspicious for malignancy. This can be worked up on outpatient basis at the later stage. Right middle lobe pulmonary nodule being monitored on outpatient basis History of smoking History of smoking Acid reflux Sigmoid diverticulosis Left adnexal mass measuring 5.7 cm in size identified on a CAT scan of the abdomen and pelvis that was done on 04/12/2022, MRI was followed on 06/25/2022 showing a cystic lesion versus multiple simple cysts versus cystic neoplasm. Plan: The patient was seen and evaluated Labs and medications reviewed Currently stable on 3 L nasal cannula Continue bronchodilators, steroids Advance diet per surgical services Titrate down the FiO2 as tolerated Increase activity as tolerated Increase use incentive spirometer Plan is for outpatient workup regarding pulmonary nodules I have personally seen and examined the patient, performed the documentation and the assessment and plan as written. Number of minutes spent on the visit: 10.
[2023-06-19 13:37] VITALS: BMI 24.8
--- NOTE | 2023-06-19 15:49 | P.PN ---
Subjective Progress Note Date: 06/19/23 CHIEF COMPLAINT: Diverticulitis HISTORY OF PRESENT ILLNESS: Patient postop day #7 status post exploratory laparotomy, sigmoid colectomy with end colostomy and partial omentectomy for diverticulitis causing colonic obstruction. The weekend. She is having flatus through her ostomy bag. No stool. Her pain is controlled. Tolerating clear liquids. She is asking for more to eat. Afebrile. WBC 7.2 PHYSICAL EXAM: VITAL SIGNS: Reviewed. GENERAL: no acute distress. ABDOMEN: Soft. Nondistended. Prevena wound vac in place. No stool output in ostomy bag. serosanguineous liquid in ostomy bag NEUROLOGIC: Awake and alert ASSESSMENT: 1. Acute severe sigmoid diverticulitis causing colonic obstruction 2. Hypomagnesemia improved PLAN: -Okay to remove Prevena dressing -Apply Optifoam silver dressing -Advance diet to full liquids -No need for PICC line and TPN -Encourage patient to ambulate -Encourage patient to use incentive spirometer -DVT prophylaxis Lovenox and GI prophylaxis Protonix Physician [employer] Work[employer] note has been reviewed by physician. Signing provider agrees with the documented findings, assessment, and plan of care. Objective - Vital Signs Vital signs: Vital Signs Temp 98.0 F 06/19/23 14:31 Pulse 92 06/19/23 14:31 Resp 16 06/19/23 14:31 BP 131/84 06/19/23 14:31 Pulse Ox 96 06/19/23 14:31 FiO2 45 06/18/23 00:35 Intake & Output 06/18/23 06/19/23 06/19/23 18:59 06:59 18:59 Intake Total 700 Output Total 700 Balance 0 Weight 72 kg Intake: Oral 700 Output: Urine 700 Other: Voiding Method Indwelling Catheter Indwelling Catheter Indwelling Catheter # Voids 3 3 ABP, PAP, CO, CI - Last Documented Arterial Blood Pressure 148/65 - Labs CBC & Chem 7: 06/17/23 05:30 06/17/23 05:30
--- NOTE | 2023-06-19 21:45 | P.PN ---
Subjective Progress Note Date: 06/19/23 Principal diagnosis: Reason for follow-up is diverticulitis failed outpatient therapy and positive blood culture Patient is a 63-year-old female with a past medical history significant for COPD reflux anxiety depression former smoker presenting to the hospital for evaluation of abdominal pain with recent diagnosis of diverticulitis failing outpatient oral Augmentin therapy.Patient is status post exploratory laparotomy sigmoid colectomy with end colostomy and partial pneumonectomy procedure completed on 06/12/2023 patient was subsequent admitted to the ICU on the vent and the patient has been extubated morning of 06/13/2023 On today's evaluation that is 06/19/2023, the patient continues to be afebrile, the patient is on 3 L nasal cannula oxygen and breathing comfortably, the Pt denies having any chest pain or cough, the patient denies having any abdominal pain no vomiting however no significant output in the colostomy patient has been tolerating her diet. No new labs were obtained today Objective - Vital Signs Vital signs: Vital Signs Temp 98.0 F 06/19/23 14:31 Pulse 92 06/19/23 16:43 Resp 16 06/19/23 14:31 BP 131/84 06/19/23 14:31 Pulse Ox 96 06/19/23 14:31 FiO2 45 06/18/23 00:35 Intake & Output 06/18/23 06/19/23 06/19/23 18:59 06:59 18:59 Intake Total 700 Output Total 700 Balance 0 Weight 72 kg Intake: Oral 700 Output: Urine 700 Other: Voiding Method Indwelling Catheter Indwelling Catheter Indwelling Catheter # Voids 3 3 ABP, PAP, CO, CI - Last Documented Arterial Blood Pressure 148/65 - Exam GENERAL DESCRIPTION: Middle-aged female up in bed in no distress RESPIRATORY SYSTEM: Unlabored breathing , decreased breath sounds at bases HEART: S1 S2 regular rate and rhythm , ABDOMEN: Soft , mild tenderness EXTREMITIES: No edema feet - Labs CBC & Chem 7: 06/17/23 05:30 06/17/23 05:30 Assessment and Plan (1) Diverticulitis Current Visit: Yes Status: Acute Code(s): K57.92 - DVTRCLI OF INTEST, PART UNSP, W/O PERF OR ABSCESS W/O BLEED SNOMED Code(s): 449439808 (2) Failure of outpatient treatment Current Visit: Yes Status: Acute Code(s): Z78.9 - OTHER SPECIFIED HEALTH STATUS SNOMED Code(s): 649569511 (3) Positive blood culture Current Visit: Yes Status: Acute Code(s): R78.81 - BACTEREMIA SNOMED Code(s): 205645879 Plan: 1patient was in the hospital abdominal pain and this patient has been diagnosed with acute diverticulitis failing outpatient oral Augmentin therapy CT did not mention any perforation or abscess. 2-patient did have a positive blood culture which has been finalized as bacillus species likely contamination, blood culture has been repeated and so far negative 3-patient is s/p exploratory laparotomy colectomy and colostomy, 4-patient is afebrile did have some worsening of the respiratory status and also have a productive cough sputum culture has been negative and resistant pathogen 5-patient remains to be afebrile and white count has been normal 6-patient to continue Zosyn transition to oral antibiotic when oral intakes improves and monitor clinical course closely Dictation was produced using [employer] dictation software. please excuse any grammatical, word or spelling errors. Time with Patient: Less than 30
--- NOTE | 2023-06-19 22:14 | PN ---
PROGRESS NOTE A 63-year-old white female surviving after ileostomy for colectomy for diverticular abscess. Breathing is improved. She is on IV Zosyn for pneumonia. She is on clear liquid diet. She wants to go to a full diet. White count 7.2, hemoglobin is 11.6, carbon dioxide is 33. She wears oxygen at home at 2 L. Sodium is 130. She is on breathing treatments. We will check labs in the morning. Continue to advance diet. PT, OT involved. Please see further orders. Prognosis guarded. MMODL / IJN: [id number] /
[2023-06-20 09:13] LABS: Basophils # (A) 0.05 X 10*3/uL (0.00-0.10); Basophils % (A) 0.5 %; Eosinophils # (A) 0 X 10*3/uL (0.04-0.35); Eosinophils % (A) 0 %; HCT 34.2 % (37.2-46.3); HGB 10.8 g/dL (12.0-15.0); Lymphocytes # (A) 0.31 X 10*3/uL (0.90-5.00); MCH 30.3 pg (27.0-32.0); MCHC 31.6 g/dL (32.0-37.0); MCV 95.8 FL (80.0-97.0); Mean Platelet Volume 9.1 FL (9.5-12.2); Monocytes % (A) 3.9 %; NRBC Per 100 WBC 0 X 10*3/uL (0.00-0.01); Neutrophils # (A) 9.15 X 10*3/uL (1.80-7.70); Neutrophils % (A) 89.9 %; Platelet Count 845 X 10*3/uL (140-440); RBC 3.57 X 10*6/uL (4.10-5.20); RBC Morphology Normal (Normal); RDW 13.9 % (11.5-14.5); WBC 10.18 X 10*3/uL (4.50-10.00)
[2023-06-20 09:21] LABS: ALT 19 U/L (8-44); AST 26 U/L (13-35); Albumin 3.3 g/dL (3.8-4.9); Albumin/Globulin Ratio 1.65 Ratio (1.60-3.17); Alkaline Phosphatase 68 U/L (41-126); Blood Urea Nitrogen 7.8 mg/dL (9.0-27.0); Calcium 8.9 mg/dL (8.7-10.3); Carbon Dioxide 27.3 mmol/L (21.6-31.8); Chloride 93 mmol/L (96-109); Glucose 161 mg/dL (70-110); Potassium 4.4 mmol/L (3.5-5.5); Sodium 133 mmol/L (135-145); Total Bilirubin <0.2 mg/dL (0.3-1.2); Total Protein 5.3 g/dL (6.2-8.2)
[2023-06-20] MEDS: HYDROcodone/APAP 7.5-325MG 1 EACH TAB PO PRN (12:59)
--- NOTE | 2023-06-20 13:36 | P.PN ---
Subjective Progress Note Date: 06/20/23 I was asked to evaluate this patient for a preoperative pulmonary clearance. The patient will be taken to the operating room today. The patient has an acute sigmoid diverticulitis with failed outpatient treatment. The patient continued to complain of abdominal pain. She was having no improvement in terms of her pain. She continued to have pain across her lower abdomen. The plan was to take this patient to the operating room for surgical exploration. CAT scan of the abdomen and pelvis that was done yesterday reported similar finding of the sigmoid colon consistent with acute diverticulitis and the patient small bilateral pleural effusions developed along with compressive atelectatic changes in lung bases. In terms of her pulmonary status, the patient is known to have COPD. The patient also has a pulmonary nodule in the right middle lobe area near the minor fissure measuring about 10 mm in size which has been progressively increasing since 2019 and additional right upper lobe pulmonary nodule measuring 13 x 6 mm in size. There is also a right upper lobe chronic cystic change which has been present on previous CAT scans of the chest. No evidence of any airspace disease or consolidation. The patient also has a T7 vertebral compression fractures. At the time of my evaluation, the patient was on 4 L of oxygen by nasal cannula with a pulse ox 92%. She was having some respiratory distress at rest. According to the , the patient has been active and the patient has been able to walk half to 1 block without having any major difficulties. She has been doing activities of day-to-day life yet but overall exercise capacity has been quite limited due to her COPD. I have evaluated this patient in the past and the patient was seen in a previous hospitalization back in December 2022 for an acute COPD exacerbation. At that time, the chronic cystic changes along with the scarring in the right upper lobe was also noted in addition to the pulmonary nodules that were discussed. The patient is a chronic smoker. Labs show a WBC count of 10.9 with hemoglobin 11.3 and platelet count of 485. Normal renal function. Electrolytes are normal. Lactic acid level is at 0.5. The blood cultures showing gram-positive bacillus in the blood, rule out an anaerobic infection. This was however seen and only 1 out of 2 blood cultures. The patient is currently on Zosyn and infectious disease also on the case. 06/13/2023, the patient is being seen for a follow-up. The patient underwent an abdominal surgery yesterday and following that the patient was kept intubated on the mechanical ventilator. Surgery included sigmoid colectomy and end colostomy and partial omentectomy along with exploratory laparotomy. The patient was found to have a inflammatory mass causing colonic obstruction at the level of the sigmoid. The patient is currently postop day #1. She is on propofol running at 20 mcg/kg/min. She is also lactated Ringer at 125 cc an hour. She had a mechanical ventilator on assist-control mode with rate of 18, tidal volume of 400, FiO2 of 45% with a PEEP of 5. The blood gas showed a pH of 7.33 with a pCO2 of 51 and pO2 of 79. Chest x-ray from this morning shows no abnormalities in regards to the position of the orotracheal tube and NG tube. The patient has evidence of bilateral consolidation and small pleural effusions along with background COPD. The WBC count at 13.4 with a hemoglobin of 11.5 and a platelet count of 549. Sodium is at 132, BUN is at 30 with a creatinine of 0.28 and a potassium level is at 4. The patient remains on IV Zosyn. The patient on Lovenox for DVT prophylaxis. The patient is also on bronchodilators. She is on no pressors for now. On today's evaluation of 06/14/2023, the patient is being seen for a follow-up. The patient is extubated. She is a bit weak. She is currently complaining of abdominal pain. Colostomy site is nonfunctional at this point in time. No significant output. Bowel sounds remain hypoactive. The patient is seen Dilaudid for pain control. She remains on IV Zosyn. She is still on 5 L of oxygen by nasal cannula. Chest x-ray that was done today shows some increased atelectatic changes in the lungs patient has some limited bibasilar infiltrates and probably a component of fluid overload. The patient is on 5 L of oxygen by nasal cannula. She is off the BiPAP. She is on lactated Ringer which is running at 125 cc an hour. Fluid balance is +1.4 L over the past 24 hours. The blood work from today shows a WBC count of 10.3 with a hemoglobin 10.7 and a platelet count of 562. BUN is 8 with a creatinine of 0.33 and a sodium level is at 134. She is awake and alert and she is also communicating. She remains on IV Zosyn. No pressors for now. She is on Lovenox 40 mg subcu for DVT prophylaxis. In terms of her abdominal wound, the patient has a superficial wound VAC which is in place. No emesis at this point in time. No abdominal distention. She is on lactated Ringer at rate of 125 cc an hour. The patient remains NPO. On today's evaluation on 06/16/2023, seen the patient for a follow-up. Overnight, the patient became more short of breath and the patient accordingly was placed on a BiPAP. She is on a BiPAP this morning and she is resting comfortably in bed at a pressure of 10/5 with an FiO2 of 45%. Repeat chest x-ray from today showing bilateral infiltrates and pleural effusion with a background COPD. The patient is tolerating the BiPAP reasonably well. At the same time, the patient remains in a normal state rate of 75 cc an hour. Fluid balance over the past 24 hours has been -1.3 L. At the same time, the colostomy output is improved and the site is viable. Surgical wound site is dry clean and intact. No abdominal distention or abdominal pain. The patient is currently NPO. The white cell count is at 9.6 with a hemoglobin 11.4 and a platelet count of 669 and the BUN is at 4 with a creatinine of 0.35, sodium level is at 128. Remains on IV Zosyn. Remains on bronchodilators. She has increased bronchospasm and wheezing and based on that I am going to start her on IV Solu-Medrol 40 mg every 8 hours. She is responsive, alert and awake. Quite lethargic. She is unable to communicate. No issues with pain at this point in time. On 06/17/2023, the patient is improved and she is currently off the BiPAP and the patient is currently on 40 subjective by nasal cannula. Less bronchospastic and wheezy. Using incentive spirometer as she is pulling approximately 1200. She is taking clear liquid diet. Colostomy site is functional. No significant abdominal pain. Remains on bronchodilators. Remains on steroids. Remains on IV Zosyn. Surgical wound is dry clean and intact. Awake and alert and communicating. The white cell count at 7.2 with a hemoglobin of 11 and a platelet count of 800. BUN is at 8 with a creatinine of 0.33 and a sodium levels at 130 with a potassium level of 4.3. 06/18/2023, patient is being seen for a follow-up. Doing well. Appetite is improved and the patient is requesting to advance her diet. She is currently on clear liquid diet. Colostomy is functional. No significant respiratory distress and the patient is currently on 4 L of O2 nasal cannula with pulse ox 98%. She is using incentive spirometry. No abdominal pain or distention. She was moved out of the intensive care unit. The white cell count 7.2 with hemoglobin 11 and the BUN is at 8 with a creatinine of 0.33 and a sodium level is 130. The patient is seen June 19, 2023 in follow-up on the regular medical floor. She is currently resting comfortably in bed. Awake and alert in no acute distress. She is maintaining good O2 saturations in the 90s on 3 L/min per nasal cannula. She is been afebrile. Hemodynamically stable. Follow-up blood cultures revealed no growth. She remains on DuoNeb ventilations, Symbicort, Solu-Medrol antibiotics in the form of Zosyn. Lovenox for DVT prophylaxis. Ostomy is functional. She is tolerating a full liquid diet. The patient is seen today June 20, 2023 in follow-up on the regular medical floor. She is awake and alert no acute distress. Resting comfortably in bed. She is maintaining O2 saturations in the 90s on 3 L/min per nasal cannula. She is encouraged regarding increased use of the incentive spirometer. She remains on Zosyn. Remains on DuoNeb inhalations, Singulair, Symbicort Solu-Medrol. Lovenox for DVT prophylaxis. Follow-up blood culture reveals no growth. White count 10.1. Hemoglobin 10.8. Platelets 845. Sodium 133. Potassium 4.4. Bicarb 27. BUN 8. Creatinine 0.4. Glucose 161. Objective - Vital Signs Vital signs: Vital Signs Temp 98.0 F 06/20/23 06:50 Pulse 90 06/20/23 13:09 Resp 16 06/20/23 06:50 BP 134/79 06/20/23 06:50 Pulse Ox 98 06/20/23 06:50 FiO2 45 06/18/23 00:35 Intake & Output 06/19/23 06/20/23 06/20/23 18:59 06:59 18:59 Intake Total 700 Output Total 700 Balance 0 Weight 72 kg Intake: Oral 700 Output: Urine 700 Other: Voiding Method Indwelling Catheter Indwelling Catheter Toilet # Voids 3 ABP, PAP, CO, CI - Last Documented Arterial Blood Pressure 148/65 - Exam General appearance: This is a pleasant 63-year-old female, resting comfortably in bed, currently on oxygen at 3 L nasal cannula Head exam was generally normal. There was no scleral icterus or corneal arcus. Mucous membranes were moist. Neck was supple and without jugular venous distension, thyromegaly, or carotid bruits. Carotids were easily palpable bilaterally. There was no adenopathy. Lung sounds are with diminished bilaterally along with few scattered expiratory wheeze Cardiac exam revealed the PMI to be normally situated and sized. The rhythm was regular and no extrasystoles were noted during several minutes of auscultation. Examination of the abdomen is soft and the patient has a viable colostomy in the left lower quadrant area. No direct tenderness or moderate to guarding. Examination of the extremities revealed easily palpable radial, femoral and pedal pulses. There was no cyanosis, clubbing or edema. Examination of the skin revealed no evidence of significant rashes, suspicious appearing nevi or other concerning lesions. Neurologically, patient is weak and alert. She answers simple questions. No focal neurological deficits. - Labs CBC & Chem 7: 06/20/23 04:12 06/20/23 04:12 Labs: Abnormal Lab Results - Last 24 Hours (Table) 06/20/23 06/20/23 Range/Units 04:12 04:12 WBC 10.18 H (4.50-10.00) X 10*3/uL RBC 3.57 L (4.10-5.20) X 10*6/uL Hgb 10.8 L (12.0-15.0) g/dL Hct 34.2 L (37.2-46.3) % MCHC 31.6 L (32.0-37.0) g/dL Plt Count 845 H (140-440) X 10*3/uL MPV 9.1 L (9.5-12.2) FL Immature Gran # 0.27 H (0.00-0.04) X 10*3/uL Neutrophils # 9.15 H (1.80-7.70) X 10*3/uL Lymphocytes # 0.31 L (0.90-5.00) X 10*3/uL Eosinophils # 0 L (0.04-0.35) X 10*3/uL Sodium 133 L (135-145) mmol/L Chloride 93 L (96-109) mmol/L Anion Gap 12.70 H (4.00-12.00) mmol/L BUN 7.8 L (9.0-27.0) mg/dL Creatinine 0.4 L (0.6-1.5) mg/dL Glucose 161 H (70-110) mg/dL Total Bilirubin <0.2 L (0.3-1.2) mg/dL Total Protein 5.3 L (6.2-8.2) g/dL Albumin 3.3 L (3.8-4.9) g/dL Assessment and Plan Assessment: Acute sigmoid diverticulitis, patient is status post exploratory laparotomy, partial omentectomy, sigmoid colectomy and end colostomy. The patient is postop day # 7. Patient remains on Zosyn. Hemodynamically stable. Surgical wound site is dry clean and intact. The patient is tolerating a full liquid diet. Positive output in the colostomy bag. Acute hypoxic/hypercapnic respiratory failure following abdominal surgery and the patient extubated. Postextubation, the patient required on and off BiPAP therapy and the patient is currently on 3 L of oxygen by nasal cannula. She does have a component of COPD exacerbation which was treated with a combination of bronchodilators and steroids. Abdominal pain secondary to above, currently stable, improved Gram-positive bacillus in the blood, rule out anaerobic septicemia, follow-up blood culture revealed no growth Chronic COPD exacerbation with shortness of breath. The patient is known to have chronic COPD maintain on accommodation Symbicort and Spiriva and albuterol updrafts on outpatient basis History of a right upper lobe cavitary cystic changes along with an enlarging pulmonary nodule which seems to be suspicious for malignancy. This can be worked up on outpatient basis at the later stage. Right middle lobe pulmonary nodule being monitored on outpatient basis History of smoking History of smoking Acid reflux Sigmoid diverticulosis Left adnexal mass measuring 5.7 cm in size identified on a CAT scan of the abdomen and pelvis that was done on 04/12/2022, MRI was followed on 06/25/2022 showing a cystic lesion versus multiple simple cysts versus cystic neoplasm. Plan: The patient was seen and evaluated Labs and medications reviewed Currently stable on 3 L nasal cannula Titrate down the FiO2 as tolerated Continue bronchodilators, steroids Increase use of the incentive spirometer Tolerating a full liquid diet Increase activity as tolerated I have personally seen and examined the patient, performed the documentation and the assessment and plan as written. Number of minutes spent on the visit: 10.
--- NOTE | 2023-06-20 15:35 | P.DS ---
Providers Date of admission: 06/08/23 15:49 Expected date of discharge: 06/20/23 Attending physician: Clemente Gongora Consults: 06/08/23 18:31 Consult Physician Routine Consulting Provider: Tammy Zacarias Consult Reason/Comments: diverticular abscess Do you want consulting provider notified?: Yes 06/08/23 18:33 Consult Physician Routine Consulting Provider: Juan José Joyner Consult Reason/Comments: diverticular abscess Do you want consulting provider notified?: Yes 06/11/23 20:01 Consult Physician Routine Consulting Provider: Juan Menendez Consult Reason/Comments: hypoxia Do you want consulting provider notified?: Yes 06/12/23 09:39 Consult Physician Stat Consulting Provider: Vera Vega Consult Reason/Comments: presurgical clearance d/t increased SOB/dyspnea Do you want consulting provider notified?: Yes Primary care physician: Clemente Gongora Hospital Course: Discharge diagnosis 1. Acute severe sigmoid diverticulitis causing colonic obstruction Hospital course This is a 63-year-old female who presented with left lower quadrant abdominal pain failing outpatient antibiotics. Patient had CT scan pelvis reviewed feeling an acute diverticulitis with developing abscess. Patient is status post exploratory laparotomy, sigmoid colectomy with end ostomy and partial omentectomy for diverticulitis causing colonic obstruction. Patient's pain is controlled. Her ostomy is functioning. She is tolerating diet. She is afebrile. She is stable for discharge from surgical standpoint. She is going to require home O2. She is satting 81% on room air. She is followed by pulmonary service and medicine service. They will be writing her prescription for the oxygen prior to patient's discharge. Patient will be discharged today once cleared by pulmonary and medicine service and oxygen has been arranged. Physician Manager Of Application [employer] note has been reviewed by physician. Signing provider agrees with the documented findings, assessment, and plan of care. Patient Condition at Discharge: Stable Plan - Discharge Summary Discharge Rx Participant: No New Discharge Prescriptions: New cefUROXime axetiL [Ceftin] 500 mg PO BID 7 Days #14 tab metroNIDAZOLE [Flagyl] 500 mg PO TID #42 tab HYDROcodone/APAP 7.5-325MG [[place] 7.5-325] 1 tab PO Q6HR PRN 3 Days #12 tab PRN Reason: Pain No Action Budesonide-Formot 160-4.5 Mcg [Symbicort 160-4.5 Mcg Inhaler] 2 puff INHALATION RT-BID #1 unit Ipratropium-Albuterol Nebulize [Duoneb 0.5 mg-3 mg/3 ml Soln] 3 ml INHALATION RT-TID PRN PRN Reason: Shortness Of Breath lamoTRIgine [LaMICtal] 100 mg PO BID Aspirin 81 mg PO DAILY 90 Days #90 tab HYDROcodone/APAP 7.5-325MG [[place] 7.5-325] 1 tab PO BID PRN PRN Reason: Pain Fexofenadine HCl [Valeri Allergy] 180 mg PO DAILY amLODIPine [Norvasc] 5 mg PO DAILY ALPRAZolam [Xanax] 0.5 mg PO BID Montelukast [Singulair] 10 mg PO DAILY Tiotropium 2.5 Mcg/Puff [Spiriva Respimat 2.5 Mcg] 2 puff INHALATION RT-BID Amoxic-Pot Clav 875-125Mg [Augmentin 875-125] 1 tab PO Q12HR #20 tab Discharge Medication List Budesonide-Formot 160-4.5 Mcg [Symbicort 160-4.5 Mcg Inhaler] 2 puff INHALATION RT-BID #1 unit 12/01/17 [Rx] Ipratropium-Albuterol Nebulize [Duoneb 0.5 mg-3 mg/3 ml Soln] 3 ml INHALATION RT-TID PRN 11/03/22 [History] amLODIPine [Norvasc] 5 mg PO DAILY 12/26/22 [History] lamoTRIgine [LaMICtal] 100 mg PO BID 12/26/22 [History] Aspirin 81 mg PO DAILY 90 Days #90 tab 01/11/23 [Rx] ALPRAZolam [Xanax] 0.5 mg PO BID 02/08/23 [History] Montelukast [Singulair] 10 mg PO DAILY 05/11/23 [History] Amoxic-Pot Clav 875-125Mg [Augmentin 875-125] 1 tab PO Q12HR #20 tab 06/06/23 [Rx] Fexofenadine HCl [Valeri Allergy] 180 mg PO DAILY 06/06/23 [History] HYDROcodone/APAP 7.5-325MG [[place] 7.5-325] 1 tab PO BID PRN 06/06/23 [History] Tiotropium 2.5 Mcg/Puff [Spiriva Respimat 2.5 Mcg] 2 puff INHALATION RT-BID 06/06/23 [History] HYDROcodone/APAP 7.5-325MG [[place] 7.5-325] 1 tab PO Q6HR PRN 3 Days #12 tab 06/20/23 [Rx] cefUROXime axetiL [Ceftin] 500 mg PO BID 7 Days #14 tab 06/20/23 [Rx] metroNIDAZOLE [Flagyl] 500 mg PO TID #42 tab 06/20/23 [Rx] Follow up Appointment(s)/Referral(s): Clemente Gongora MD [Primary Care Provider] - 1-2 days [facility], [NON-STAFF] - 1 Week ([facility] will call you to arrange a visit) Vera Vega MD [STAFF PHYSICIAN] - 1 Week Juan José Joyner MD [STAFF PHYSICIAN] - 1 Week Activity/Diet/Wound Care/Special Instructions: Ostomy: Soper convex 1 piece cut to fit #[id number]; changed 06/19/[address] taking [place] No lifting over 10 pounds Shower daily. No soaking or tub baths for 2 weeks Very light activity until you are reevaluated at your follow up appointment with your surgeon Discharge Disposition: HOME WITH HOME HEALTH SERVICES
[2023-06-21 08:17] VITALS: BP 135/77; RESP 19; TEMP 97.6
--- NOTE | 2023-06-21 12:51 | P.PN ---
Subjective Progress Note Date: 06/21/23 I was asked to evaluate this patient for a preoperative pulmonary clearance. The patient will be taken to the operating room today. The patient has an acute sigmoid diverticulitis with failed outpatient treatment. The patient continued to complain of abdominal pain. She was having no improvement in terms of her pain. She continued to have pain across her lower abdomen. The plan was to take this patient to the operating room for surgical exploration. CAT scan of the abdomen and pelvis that was done yesterday reported similar finding of the sigmoid colon consistent with acute diverticulitis and the patient small bilateral pleural effusions developed along with compressive atelectatic changes in lung bases. In terms of her pulmonary status, the patient is known to have COPD. The patient also has a pulmonary nodule in the right middle lobe area near the minor fissure measuring about 10 mm in size which has been progressively increasing since 2019 and additional right upper lobe pulmonary nodule measuring 13 x 6 mm in size. There is also a right upper lobe chronic cystic change which has been present on previous CAT scans of the chest. No evidence of any airspace disease or consolidation. The patient also has a T7 vertebral compression fractures. At the time of my evaluation, the patient was on 4 L of oxygen by nasal cannula with a pulse ox 92%. She was having some respiratory distress at rest. According to the , the patient has been active and the patient has been able to walk half to 1 block without having any major difficulties. She has been doing activities of day-to-day life yet but overall exercise capacity has been quite limited due to her COPD. I have evaluated this patient in the past and the patient was seen in a previous hospitalization back in December 2022 for an acute COPD exacerbation. At that time, the chronic cystic changes along with the scarring in the right upper lobe was also noted in addition to the pulmonary nodules that were discussed. The patient is a chronic smoker. Labs show a WBC count of 10.9 with hemoglobin 11.3 and platelet count of 485. Normal renal function. Electrolytes are normal. Lactic acid level is at 0.5. The blood cultures showing gram-positive bacillus in the blood, rule out an anaerobic infection. This was however seen and only 1 out of 2 blood cultures. The patient is currently on Zosyn and infectious disease also on the case. 06/13/2023, the patient is being seen for a follow-up. The patient underwent an abdominal surgery yesterday and following that the patient was kept intubated on the mechanical ventilator. Surgery included sigmoid colectomy and end colostomy and partial omentectomy along with exploratory laparotomy. The patient was found to have a inflammatory mass causing colonic obstruction at the level of the sigmoid. The patient is currently postop day #1. She is on propofol running at 20 mcg/kg/min. She is also lactated Ringer at 125 cc an hour. She had a mechanical ventilator on assist-control mode with rate of 18, tidal volume of 400, FiO2 of 45% with a PEEP of 5. The blood gas showed a pH of 7.33 with a pCO2 of 51 and pO2 of 79. Chest x-ray from this morning shows no abnormalities in regards to the position of the orotracheal tube and NG tube. The patient has evidence of bilateral consolidation and small pleural effusions along with background COPD. The WBC count at 13.4 with a hemoglobin of 11.5 and a platelet count of 549. Sodium is at 132, BUN is at 30 with a creatinine of 0.28 and a potassium level is at 4. The patient remains on IV Zosyn. The patient on Lovenox for DVT prophylaxis. The patient is also on bronchodilators. She is on no pressors for now. On today's evaluation of 06/14/2023, the patient is being seen for a follow-up. The patient is extubated. She is a bit weak. She is currently complaining of abdominal pain. Colostomy site is nonfunctional at this point in time. No significant output. Bowel sounds remain hypoactive. The patient is seen Dilaudid for pain control. She remains on IV Zosyn. She is still on 5 L of oxygen by nasal cannula. Chest x-ray that was done today shows some increased atelectatic changes in the lungs patient has some limited bibasilar infiltrates and probably a component of fluid overload. The patient is on 5 L of oxygen by nasal cannula. She is off the BiPAP. She is on lactated Ringer which is running at 125 cc an hour. Fluid balance is +1.4 L over the past 24 hours. The blood work from today shows a WBC count of 10.3 with a hemoglobin 10.7 and a platelet count of 562. BUN is 8 with a creatinine of 0.33 and a sodium level is at 134. She is awake and alert and she is also communicating. She remains on IV Zosyn. No pressors for now. She is on Lovenox 40 mg subcu for DVT prophylaxis. In terms of her abdominal wound, the patient has a superficial wound VAC which is in place. No emesis at this point in time. No abdominal distention. She is on lactated Ringer at rate of 125 cc an hour. The patient remains NPO. On today's evaluation on 06/16/2023, seen the patient for a follow-up. Overnight, the patient became more short of breath and the patient accordingly was placed on a BiPAP. She is on a BiPAP this morning and she is resting comfortably in bed at a pressure of 10/5 with an FiO2 of 45%. Repeat chest x-ray from today showing bilateral infiltrates and pleural effusion with a background COPD. The patient is tolerating the BiPAP reasonably well. At the same time, the patient remains in a normal state rate of 75 cc an hour. Fluid balance over the past 24 hours has been -1.3 L. At the same time, the colostomy output is improved and the site is viable. Surgical wound site is dry clean and intact. No abdominal distention or abdominal pain. The patient is currently NPO. The white cell count is at 9.6 with a hemoglobin 11.4 and a platelet count of 669 and the BUN is at 4 with a creatinine of 0.35, sodium level is at 128. Remains on IV Zosyn. Remains on bronchodilators. She has increased bronchospasm and wheezing and based on that I am going to start her on IV Solu-Medrol 40 mg every 8 hours. She is responsive, alert and awake. Quite lethargic. She is unable to communicate. No issues with pain at this point in time. On 06/17/2023, the patient is improved and she is currently off the BiPAP and the patient is currently on 40 subjective by nasal cannula. Less bronchospastic and wheezy. Using incentive spirometer as she is pulling approximately 1200. She is taking clear liquid diet. Colostomy site is functional. No significant abdominal pain. Remains on bronchodilators. Remains on steroids. Remains on IV Zosyn. Surgical wound is dry clean and intact. Awake and alert and communicating. The white cell count at 7.2 with a hemoglobin of 11 and a platelet count of 800. BUN is at 8 with a creatinine of 0.33 and a sodium levels at 130 with a potassium level of 4.3. 06/18/2023, patient is being seen for a follow-up. Doing well. Appetite is improved and the patient is requesting to advance her diet. She is currently on clear liquid diet. Colostomy is functional. No significant respiratory distress and the patient is currently on 4 L of O2 nasal cannula with pulse ox 98%. She is using incentive spirometry. No abdominal pain or distention. She was moved out of the intensive care unit. The white cell count 7.2 with hemoglobin 11 and the BUN is at 8 with a creatinine of 0.33 and a sodium level is 130. The patient is seen June 19, 2023 in follow-up on the regular medical floor. She is currently resting comfortably in bed. Awake and alert in no acute distress. She is maintaining good O2 saturations in the 90s on 3 L/min per nasal cannula. She is been afebrile. Hemodynamically stable. Follow-up blood cultures revealed no growth. She remains on DuoNeb ventilations, Symbicort, Solu-Medrol antibiotics in the form of Zosyn. Lovenox for DVT prophylaxis. Ostomy is functional. She is tolerating a full liquid diet. The patient is seen today June 20, 2023 in follow-up on the regular medical floor. She is awake and alert no acute distress. Resting comfortably in bed. She is maintaining O2 saturations in the 90s on 3 L/min per nasal cannula. She is encouraged regarding increased use of the incentive spirometer. She remains on Zosyn. Remains on DuoNeb inhalations, Singulair, Symbicort Solu-Medrol. Lovenox for DVT prophylaxis. Follow-up blood culture reveals no growth. White count 10.1. Hemoglobin 10.8. Platelets 845. Sodium 133. Potassium 4.4. Bicarb 27. BUN 8. Creatinine 0.4. Glucose 161. The patient is seen today June 21, 2023 in follow-up on the regular medical floor. She is sitting up in bed. Awake and alert in no acute distress. She denies any worsening shortness of breath, cough or congestion. She is maintaining good O2 saturations in the upper 90s on 2 L/min per nasal cannula. She is afebrile. Hemodynamically stable. Blood cultures revealed no growth. No new labs today. She is continued on DuoNeb elations, Symbicort, Solu-Medrol. Antibiotics in the form of Zosyn. Lovenox for DVT prophylaxis. Tolerating a low fiber diet. She is postoperative following an exploratory laparotomy with sigmoid colectomy and end colostomy and partial omentectomy for diverticulitis causing colonic obstruction. Ostomy functioning. Objective - Vital Signs Vital signs: Vital Signs Temp 97.6 F 06/21/23 07:18 Pulse 100 06/21/23 09:54 Resp 19 06/21/23 07:18 BP 135/77 06/21/23 07:18 Pulse Ox 95 06/21/23 09:44 FiO2 45 06/18/23 00:35 Intake & Output 06/20/23 06/21/23 06/21/23 18:59 06:59 18:59 Other: Voiding Method Toilet Toilet Toilet ABP, PAP, CO, CI - Last Documented Arterial Blood Pressure 148/65 - Exam General appearance: This is a pleasant 63-year-old female, resting in bed, currently on oxygen at 2 L nasal cannula Head exam was generally normal. There was no scleral icterus or corneal arcus. Mucous membranes were moist. Neck was supple and without jugular venous distension, thyromegaly, or carotid bruits. Carotids were easily palpable bilaterally. There was no adenopathy. Lung sounds are with diminished bilaterally along with few scattered expiratory wheeze Cardiac exam revealed the PMI to be normally situated and sized. The rhythm was regular and no extrasystoles were noted during several minutes of auscultation. Examination of the abdomen is soft and the patient has a viable colostomy in the left lower quadrant area. No direct tenderness or moderate to guarding. Examination of the extremities revealed easily palpable radial, femoral and pedal pulses. There was no cyanosis, clubbing or edema. Examination of the skin revealed no evidence of significant rashes, suspicious appearing nevi or other concerning lesions. Neurologically, patient is weak and alert. She answers simple questions. No focal neurological deficits. - Labs CBC & Chem 7: 06/20/23 04:12 06/20/23 04:12 Assessment and Plan Assessment: Acute sigmoid diverticulitis, patient is status post exploratory laparotomy, partial omentectomy, sigmoid colectomy and end colostomy on 06/12/2023. Negative for malignancy. Remains on Zosyn. Hemodynamically stable. Surgical wound site is dry clean and intact. The patient is tolerating a low fiber diet. Positive output in the colostomy bag. Acute hypoxic/hypercapnic respiratory failure following abdominal surgery and the patient extubated. Postextubation, the patient required on and off BiPAP therapy and the patient is currently on 3 L of oxygen by nasal cannula. She does have a component of COPD exacerbation which was treated with a combination of bronchodilators and steroids. Abdominal pain secondary to above, currently stable, improved Gram-positive bacillus in the blood, rule out anaerobic septicemia, follow-up blood culture revealed no growth Chronic COPD exacerbation with shortness of breath. The patient is known to have chronic COPD maintain on accommodation Symbicort and Spiriva and albuterol updrafts on outpatient basis History of a right upper lobe cavitary cystic changes along with an enlarging pulmonary nodule which seems to be suspicious for malignancy. This can be worked up on outpatient basis at the later stage. Right middle lobe pulmonary nodule being monitored on outpatient basis History of smoking History of smoking Acid reflux Sigmoid diverticulosis Left adnexal mass measuring 5.7 cm in size identified on a CAT scan of the abdomen and pelvis that was done on 04/12/2022, MRI was followed on 06/25/2022 showing a cystic lesion versus multiple simple cysts versus cystic neoplasm. Plan: The patient was seen and evaluated Medications reviewed Currently stable on 2 L nasal cannula Will require home oxygen Continue bronchodilators Continue oral antibiotics Continue the incentive spirometer Tolerating a low fiber diet Plan is for home with home care Follow-up in our office in 1 week I have personally seen and examined the patient, performed the documentation and the assessment and plan as written. Number of minutes spent on the visit: 10.
[2023-06-21 14:28] VITALS: PULSE 88
== END 2023-06-21 14:57 | disposition home health service (06) | DRG 329 ==
LOC: EC 11:44 → 4SSUR 15:49 → 2SICU 06-12 20:03 → 4SSUR 06-17 16:08
PROVIDERS: ADMIT Family Medicine; ATTEND Family Medicine
PROC: 0BH17EZ Insertion of Endotracheal Airway into Trachea, Via Natural or Artificial Opening (ICD-10-PCS; 2023-06-12)
PROC: 5A1935Z Respiratory Ventilation, Less than 24 Consecutive Hours (ICD-10-PCS; 2023-06-12)
PROC: 03HY32Z Insertion of Monitoring Device into Upper Artery, Percutaneous Approach (ICD-10-PCS; 2023-06-12)
PROC: 4A133B1 Monitoring of Arterial Pressure, Peripheral, Percutaneous Approach (ICD-10-PCS; 2023-06-12)
PROC: 4A133J1 Monitoring of Arterial Pulse, Peripheral, Percutaneous Approach (ICD-10-PCS; 2023-06-12)
PROC: 0DBU0ZZ Excision of Omentum, Open Approach (ICD-10-PCS; principal; 2023-06-12 11:35)
PROC: 0D1M0Z4 Bypass Descending Colon to Cutaneous, Open Approach (ICD-10-PCS; principal; 2023-06-12 11:35)
PROC: 0DTN0ZZ Resection of Sigmoid Colon, Open Approach (ICD-10-PCS; principal; 2023-06-12 11:35)
PROC: 5A09357 Assistance with Respiratory Ventilation, Less than 24 Consecutive Hours, Continuous Positive Airway Pressure (ICD-10-PCS; 2023-06-13)
DX: K57.20 Diverticulitis of large intestine with perforation and abscess without bleeding (principal); J18.9 Pneumonia, unspecified organism; J96.01 Acute respiratory failure with hypoxia; J96.02 Acute respiratory failure with hypercapnia; E87.1 Hypo-osmolality and hyponatremia; J44.0 Chronic obstructive pulmonary disease with (acute) lower respiratory infection; J44.1 Chronic obstructive pulmonary disease with (acute) exacerbation; J90 Pleural effusion, not elsewhere classified; J98.11 Atelectasis; K56.609 Unspecified intestinal obstruction, unspecified as to partial versus complete obstruction; M48.54XA Collapsed vertebra, not elsewhere classified, thoracic region, initial encounter for fracture; F32.A Depression, unspecified; M54.9 Dorsalgia, unspecified; J43.9 Emphysema, unspecified; G89.29 Other chronic pain; K64.9 Unspecified hemorrhoids; K21.9 Gastro-esophageal reflux disease without esophagitis; R03.0 Elevated blood-pressure reading, without diagnosis of hypertension; F41.9 Anxiety disorder, unspecified; H93.19 Tinnitus, unspecified ear; R91.8 Other nonspecific abnormal finding of lung field; G43.909 Migraine, unspecified, not intractable, without status migrainosus; E83.42 Hypomagnesemia; E87.70 Fluid overload, unspecified; H91.90 Unspecified hearing loss, unspecified ear; Z87.891 Personal history of nicotine dependence; Z79.51 Long term (current) use of inhaled steroids; Z79.82 Long term (current) use of aspirin; Z97.4 Presence of external hearing-aid; Z71.3 Dietary counseling and surveillance; Z28.21 Immunization not carried out because of patient refusal
CPT/HCPCS: 36415; 71045; 71250; 74177; 80048; 80053; 81001; 82150; 82805; 83605; 83690; 83735; 84132; 85025; 85652; 86140; 86850; 86900; 86901; 87040; 88307; 93005; 94002; 94003; 94640; 94660; 94760; 96361; 96365; 96366; 96368; 96375; 96376; 99285

== ENCOUNTER → 2023-07-16 | Outpatient (CLI) | payer OTHER ==
--- NOTE | 2023-07-17 13:10 | PE ---
EXAMINATION TYPE: PET CT fusion skull to thigh DATE OF EXAM: 07/16/2023 COMPARISON: CT chest 06/03/2023 Prior PET/CT: None HISTORY: Solitary pulmonary nodule TECHNIQUE: Following the intravenous administration of 11.79 mCi of F-18 FDG, whole body images are performed from the skull base to the midthigh. Images are reviewed on the computer in the coronal, a xial, and sagittal planes. Reconstructed rotating images are created on independent workstation and reviewed on the computer. A localization and attenuation correction CT is performed in conjunction with the PET scan. DLP: 212.58 mGycm SCAN: Initial Blood glucose: 100 mg/dL Average Mediastinum SUV: 2.09 Average Liver SUV: 2.72 FINDINGS: NECK: No abnormal uptake THORAX: There is focal uptake within the posterior right upper lobe, image 83, SUV 2.58. There is dif fuse uptake through the right midlung infiltrate. Focal nodularity is evident on the PET images, exam ple image 87, SUV 3.18, image 92, SUV 4.43 There is intense uptake within the lateral right midlung. Image 101, CBD 10.67 ABDOMEN: No abnormal uptake PELVIS: No abnormal uptake OSSEOUS STRUCTURES: Some small focal intermediate radiotracer is at the costal chondral junction left anterior chest, image 101, SUV 2.43. Some increased uptake may be along the anterior right rib, imag e 116, SUV 3.04. LOCALIZATION CT: Nodules at the focus of marked radiotracer uptake COMPARISON: Lobular density in the right midlung appears stable from recent comparison. IMPRESSION: 1. Marked uptake within the lobular density right midlung. 2. Milder uptake within along the infiltrate right upper lung field and within the posterior right ap ical nodule 3. Couple of areas of uptake within the anterior ribs discussed above. Posttraumatic change and metas tasis are within the differential. Osseous metastasis is not otherwise identified. 4. No distant metastasis otherwise evident.
== END | disposition home or self-care (01) ==
LOC: RADPETMAIN 11:56
PROVIDERS: ATTEND Family Medicine
DX: R91.8 Other nonspecific abnormal finding of lung field (principal); J98.4 Other disorders of lung
CPT/HCPCS: 78815; A9552

== ENCOUNTER → 2023-09-05 | Outpatient (CLI) | payer OTHER ==
[2023-09-05 12:45] LABS: INR 0.9 (<1.2)
[2023-09-05 12:46] LABS: Prothrombin Time 10.1 sec (10.0-12.5)
[2023-09-05 12:54] LABS: Partial Thromboplastin Time 21.1 sec (22.0-30.0)
[2023-09-05 15:09] LABS: Basophils # (A) 0.06 X 10*3/uL (0.00-0.10); Basophils % (A) 0.7 %; Eosinophils # (A) 0.03 X 10*3/uL (0.04-0.35); Eosinophils % (A) 0.4 %; HCT 44.8 % (37.2-46.3); HGB 14.4 g/dL (12.0-15.0); Lymphocytes % (A) 5.9 %; MCH 31.4 pg (27.0-32.0); MCHC 32.1 g/dL (32.0-37.0); MCV 97.8 FL (80.0-97.0); Mean Platelet Volume 10.1 FL (9.5-12.2); Monocytes # (A) 0.27 X 10*3/uL (0.20-1.00); Monocytes % (A) 3.2 %; NRBC Per 100 WBC 0 X 10*3/uL (0.00-0.01); Neutrophils # (A) 7.52 X 10*3/uL (1.80-7.70); Neutrophils % (A) 89.3 %; Platelet Count 455 X 10*3/uL (140-440); RBC 4.58 X 10*6/uL (4.10-5.20); RDW 13.6 % (11.5-14.5); WBC 8.42 X 10*3/uL (4.50-10.00)
[2023-09-05 15:25] LABS: Appearance,Urine Clear (Clear); Bilirubin,Urine Negative (Negative); Blood,Urine Negative (Negative); Color,Urine Yellow (Yellow); Ketones,Urine Negative (Negative); Nitrite,Urine Negative (Negative); PH, Urine 6.5; Specific Gravity,Urine 1.008 (1.001-1.030); Urobilinogen,Urine 0.2 E.U./DL
[2023-09-05 16:00] LABS: Blood Urea Nitrogen 10.1 mg/dL (9.0-27.0); Carbon Dioxide 22.2 mmol/L (21.6-31.8); Chloride 100 mmol/L (96-109); Glucose 166 mg/dL (70-110); Potassium 4.1 mmol/L (3.5-5.5); Sodium 140 mmol/L (135-145)
== END | disposition home or self-care (01) ==
LOC: LABPAT 10:35
PROVIDERS: ATTEND Thoracic Surgery (Cardiothoracic Vascular Surgery)
DX: Z01.818 Encounter for other preprocedural examination (principal); I51.7 Cardiomegaly; C34.2 Malignant neoplasm of middle lobe, bronchus or lung; R91.1 Solitary pulmonary nodule; R94.31 Abnormal electrocardiogram [ECG] [EKG]; R00.0 Tachycardia, unspecified
CPT/HCPCS: 80051; 81003; 82565; 82947; 84520; 85025; 85610; 85730; 86850; 86900; 86901; 87086; 93005

== ENCOUNTER → 2023-09-05 | Outpatient (CLI) | payer OTHER ==
--- NOTE | 2023-09-05 14:12 | NM ---
EXAMINATION TYPE: NM bone scan whole body DATE OF EXAM: 09/05/2023 COMPARISON: NONE CLINICAL INDICATION: Female, 63 years old with history of R91.1 SOLITARY PULMONARY NODULE; Delayed whole-body scanning was performed following the injection of 23.2 mCi Tc 99m MDP. Images acq uired 4 hours post injection. FINDINGS: Abnormal uptake involving the vertebral column most marked thoracic and lower lung spine is nonspecif ic but likely degenerative. Abnormal uptake involving the anterior margin of bilateral rib cage. Abnormal uptake involving the shoulders and knees likely post arthritic. IMPRESSION: 1. Heterogeneous uptake involving the mid rib cage bilaterally is nonspecific and for which CT correl ation is recommended. 2. Abnormal uptake involving the vertebral column is nonspecific but most likely degenerative.
== END | disposition home or self-care (01) ==
LOC: RADNMMAIN 09:49
PROVIDERS: ATTEND Thoracic Surgery (Cardiothoracic Vascular Surgery)
DX: R91.1 Solitary pulmonary nodule (principal); R93.7 Abnormal findings on diagnostic imaging of other parts of musculoskeletal system
CPT/HCPCS: 78306; A9503

== ENCOUNTER 2023-09-07 05:37 | Inpatient (IN) | payer OTHER ==
[2023-09-07] MEDS ORDERED: LIDOCAINE 1% (10MG/ML) FOR IV START INTRADERMA PRN (06:08)
[2023-09-07 06:40] LABS: Glucose,Whole Blood 100 mg/dL (70-110)
[2023-09-07] MEDS: ONDANSETRON 4 MG/2 ML VIAL IVP ONE (06:52)
[2023-09-07] MEDS: DEXAMETHASONE SOD PHOSPHATE 4 MG/ML 1 ML VIAL IV ONE (06:52)
[2023-09-07] MEDS: MIDAZOLAM 2 MG/2 ML VIAL IVP ONE (07:01)
[2023-09-07] MEDS: IV FLUID CONTINUATION 1,000 ML IV ONE ×3 (07:11→10:39)
[2023-09-07] MEDS ORDERED: ROCURONIUM 10 MG/ML (5 ML VIAL) IV ONE (07:38)
[2023-09-07] MEDS ORDERED: PHENYLEPHRINE 10 MG/ML VIAL ONE (07:38)
[2023-09-07] MEDS ORDERED: KETAMINE HCL IN 0.9 % NACL 50 MG/5 ML SYRINGE ONE (07:38)
[2023-09-07] MEDS ORDERED: SUGAMMADEX SODIUM 200 MG/2 ML SDV IV ONE (07:38)
[2023-09-07] MEDS ORDERED: HYDROmorphone (PF) 1 MG/ML ONE (07:38)
[2023-09-07] MEDS ORDERED: SUCCINYLCHOLINE CHLORIDE 200 MG/10 ML VIAL IV ONE (07:38)
[2023-09-07] MEDS ORDERED: LIDOCAINE 1% INJ 10MG/ML (20 ML MDV) ONE (07:38)
[2023-09-07] MEDS ORDERED: NEOSTIGMINE 1 MG/ML 10 ML VIAL ONE (07:38)
[2023-09-07] MEDS ORDERED: fentaNYL (PF) 50 MCG/ML 2 ML AMP ONE (07:38)
[2023-09-07] MEDS ORDERED: MIDAZOLAM 2 MG/2 ML VIAL ONE (07:38)
[2023-09-07] MEDS ORDERED: GLYCOPYRROLATE 0.2 MG/ML 2 ML VIAL ONE (07:38)
[2023-09-07] MEDS ORDERED: PROPOFOL 10 MG/ML 20 ML VIAL IV ONE (07:38)
--- NOTE | 2023-09-07 08:31 | P.ANPRN ---
Procedure Note - Anesthesia - Nerve Block Performed Right Erector Spinae Single Time Out Performed: Yes ([id number]) Date of Procedure: 09/07/23 Procedure Start Time: : Procedure Stop Time: 07:04 Location of Patient: PreOp Indication: Acute Post-Operative Pain, Requested by Surgeon Specifically requested for management of pain by DrAurea: Jules Danielle Sedation Type: Sedate with meaningful contact maintained Preparation: Sterile Prep Position: Sitting Catheter: None Needle Types: Pajunk Needle Gauge: 21 Ultrasound used to visualize needle placement: Yes Ultrasound used to observe medication spread: Yes Injectate: 0.5% Ropivacaine (see comment for volume) (30cc) Blood Aspirated: No Pain Paresthesia on Injection Noted: No Resistance on Injection: Normal Image Stored and Saved: Yes Events: Uneventful and Well Tolerated
[2023-09-07] MEDS: BUPIVACAINE (PF) 0.5% 30 ML VIAL SQ ONE ×2 (08:50)
--- NOTE | 2023-09-07 09:42 | P.OP ---
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 Postoperative Diagnosis: Same Procedure(s) Performed: Robotic assisted thoracoscopic right middle lobe wedge resection with mediastinal lymph node dissection and on table diagnosis Anesthesia: AUBREY Surgeon: Jules Danielle Lot Worker #1: Clemente Summers Estimated Blood Loss (ml): 10 Pathology: other (Wedge resection right middle lobe with on table diagnosis, mediastinal lymph node dissection with specimens for permanent section: R4, R8, R9, R10, R11, level 7) Condition: stable Disposition: PACU Indications for Procedure: 63-year-old female with active smoking and severe COPD presents with enlarging peripheral nodule in the right middle lobe. It measures just under a centimeter. It is PET positive. There is no evidence of metastasis by PET. There is no confirmed diagnosis. She was referred to me by Dr. Menendez and Dr. Gongora for surgical evaluation. Had a eli discussion with the patient in the office. She is not a candidate for lobectomy. We discussed wedge resection with lymph node dissection. We also discussed possible biopsy. The patient wanted to proceed directly to surgery and "get it out". Operative Findings: There were multiple adhesions present within the pleural cavity. Fissures were partially complete. There was a small peripheral nodule in the lateral segment of the right middle lobe. This was successfully resected with greater than 1 cm margins and frozen section revealed non-small cell carcinoma. Lymphadenopathy was very mild and anthracotic. Complete lymph node dissection was performed. Description of Procedure: Patient was brought to the operating room and placed supine on the operating table. General anesthesia was induced. Double-lumen endotracheal tube was placed and positioned with bronchoscopic guidance. Patient was turned in the left lateral decubitus position. The right chest was sterilely prepped and draped. Patient was appropriately positioned for robotic lobectomy. Chest was entered in the ninth interspace in the anterior axillary line and an 8 mm robotic port was placed here. After confirming presence in the pleural space with thoracoscopy, CO2 insufflation was begun. Multiple adhesions were noted. 12 Croatian robotic port was placed anteriorly in the eighth interspace. A second 8 mm port was placed in the posterior axillary line in the 10th interspace. A third 8 mm port was placed even further posteriorly at the level of the superior segment of the right lower lobe. Working port was placed at the level of the diaphragm between the 2 most anterior ports. The robot was docked. Adhesions were taken down with robotic Bovie cautery dissection. The middle lobe was explored and the pulmonary nodule identified. Wide wedge resection was performed using 2 firings of a robotic 45 mm blue stapler. This was placed in an Endo Catch bag and brought out onto the table. Was cut on the back table and a small piece safe for culture in case it should turn down man to be a granuloma. Specimen was then sent down for frozen section and returned positive for non- small cell carcinoma. Further adhesions at the diaphragm were taken down and the inferior pulmonary ligament was taken down with electrocautery. Posterior lymph node dissection involving the 9 8 and 7 lymph nodes were performed. We now directed our attention more anteriorly and dissected in the fissure between the lower and middle lobes up to the middle lobe bronchus. There was minimal lymph node around the bronchus but a small R11 lymph node was resected and sent for permanent section. Attention was then directed to the superior aspect of the hilum. Again there was minimal lymph node at the R10 region but a small R10 lymph node was resected and sent for permanent section. The space between the trachea and superior vena cava was opened and the R4 lymph nodes were resected. Good hemostasis was noted throughout. 28 Croatian chest tube was placed through an anterior incision and positioned posterior apically. Robot was undocked. The lung was reinflated under thoracoscopic visualization and all the ports were removed. The incisions were closed with layers of Vicryl suture. Dry sterile dressings were applied and the patient was transferred to recovery in stable condition.
[2023-09-07] MEDS: HYDROmorphone 0.5 MG/0.5 ML SYRINGE IVP PRN (10:12)
[2023-09-07] MEDS: LACTATED RINGERS 1,000 ML IV SCH (10:16)
--- NOTE | 2023-09-07 10:17 | XR ---
EXAMINATION TYPE: XR chest 1V portable DATE OF EXAM: 09/07/2023 COMPARISON: 06/17/2019 HISTORY: Postop TECHNIQUE: Single frontal view of the chest is obtained. FINDINGS: Right-sided subcutaneous emphysema with a small approximately 5-10% apical pneumothorax wi th chest position. This there is diffuse osteopenia. The heart is enlarged and there is prominence of the right hilum is probably related to prior surgery. Underlying consolidation or mass not excluded. No sizable pleural effusion. Underlying COPD. IMPRESSION: Chest tube in position with approximate 5-10% right pneumothorax.
[2023-09-07] MEDS ORDERED: IPRATROPIUM-ALBUTEROL 3 ML NEB IH PRN (11:11)
[2023-09-07] MEDS ORDERED: ONDANSETRON 4 MG/2 ML VIAL IVP PRN (11:11)
[2023-09-07] MEDS: HYDROcodone/APAP 7.5-325MG 1 EACH TAB PO PRN (12:54)
[2023-09-07] MEDS: DEXTROSE 5%-0.45% NACL 1,000 ML IV SCH (13:41)
[2023-09-07] MEDS: KETOROLAC 15 MG/ML 1 ML VIAL IVP SCH (14:01)
[2023-09-07] MEDS: IPRATROPIUM-ALBUTEROL 3 ML NEB IH SCH (15:28)
[2023-09-07] MEDS: HEPARIN SODIUM,PORCINE 5,000 UNIT/ML 1 ML VIAL SQ SCH (16:12)
[2023-09-07] MEDS: ALPRAZolam 0.5 MG TAB PO SCH (20:17)
[2023-09-07] MEDS: lamoTRIgine 100 MG TAB PO SCH (20:17)
[2023-09-07] MEDS: SERTRALINE 50 MG TAB PO SCH (20:17)
[2023-09-07] MEDS: MORPHINE SULFATE 2 MG/ML SYRINGE IVP PRN (20:18)
[2023-09-07] MEDS: PANTOPRAZOLE 40 MG TABLET PO SCH (20:19)
[2023-09-07] MEDS: SYMBICORT 160-4.5 MCG INHALER INHALATION SCH (20:22)
[2023-09-07 20:46] LABS: Glucose,Whole Blood 114 mg/dL (70-110)
[2023-09-07] MEDS: ACETAMINOPHEN TAB 325 MG TAB PO PRN (21:08)
--- NOTE | 2023-09-07 21:35 | XR ---
EXAMINATION TYPE: XR chest 1V portable DATE OF EXAM: 09/07/2023 9:02 PM CLINICAL INDICATION:Female, 63 years old with history of Resp distress; [facility] COMPARISON: Chest radiograph from the same day TECHNIQUE: XR chest 1V portable Frontal view of the chest. FINDINGS: There is interval significant increase in diffuse subcutaneous emphysema involving the right chest wa ll and supraclavicular soft tissues in addition to the left supraclavicular soft tissues and extendin g into the left chest wall and axilla. There is stable appearance of the right sided thoracostomy tube with the tip located in the right upp er lung. Distinct pleural line is not visualized but trace right pneumothorax is likely. No evidence for expanding right-sided pneumothorax. The cardiomediastinal silhouette is stable. Similar-appearing interstitial and patchy airspace opacit ies involving the right lung. The left lung is overall clear. No acute osseous abnormality is. IMPRESSION: 1. Stable right-sided chest tube with nearly resolved or possible trace residual right pneumothorax. 2. Significant interval increase in right-sided subcutaneous emphysema with new left supraclavicular and left chest wall subcutaneous emphysema. 3. Similar opacifications in the right lung which may relate to previous intervention however underly ing infectious/inflammatory process cannot be entirely excluded.
[2023-09-07] MEDS: droPERidol 5 MG/2 ML VIAL IVP ONE (22:40)
[2023-09-08 06:37] LABS: Basophils % (A) 0 %; Eosinophils # (A) 0.1 k/uL (0-0.7); Eosinophils % (A) 1 %; HCT 39.9 % (34.0-46.0); HGB 12.4 gm/dL (11.4-16.0); Hypochromasia Slight; Lymphocytes # (A) 1.9 k/uL (1.0-4.8); Lymphocytes % (A) 20 %; MCH 31.4 pg (25.0-35.0); MCHC 31.1 g/dL (31.0-37.0); MCV 100.8 fL (80.0-100.0); Macrocytosis Slight; Mean Platelet Volume 8.5; Monocytes # (A) 0.8 k/uL (0-1.0); Monocytes % (A) 9 %; Neutrophils # (A) 6.3 k/uL (1.3-7.7); Neutrophils % (A) 69 %; Platelet Count 345 k/uL (150-450); RBC 3.95 m/uL (3.80-5.40); WBC 9.2 k/uL (3.8-10.6)
[2023-09-08 06:52] LABS: African American GFR (CKD) >90 (>60 ml/min/1.73 sqM); Anion Gap 2 mmol/L; Blood Urea Nitrogen 10 mg/dL (7-17); Calcium 8.9 mg/dL (8.4-10.2); Carbon Dioxide 32 mmol/L (22-30); Chloride 97 mmol/L (98-107); Glucose 104 mg/dL (74-99); Non-African American GFR(CKD) >90 (>60 ml/min/1.73 sqM); Potassium 4.6 mmol/L (3.5-5.1); Sodium 131 mmol/L (137-145)
--- NOTE | 2023-09-08 07:45 | XR ---
EXAMINATION TYPE: XR chest 1V DATE OF EXAM: 09/08/2023 COMPARISON: 09/07/2023 HISTORY: Respiratory difficulty TECHNIQUE: Single frontal view of the chest is obtained. FINDINGS: There is diffuse subcutaneous air/emphysema. Right-sided chest tube with tiny less than 5% right-sided pneumothorax. There is pneumomediastinum. Pneumopericardium is suspected. Underlying INSTRUCTIONAL CONSULTANT D. Subsegmental basilar atelectasis favored over pneumonia. Osseous structures are stable. Heart size normal. IMPRESSION: 1. Right-sided chest tube with tiny less than 5% right apical thorax. 2. Severe subcutaneous emphysema\air. 3. Pneumomediastinum and pneumopericardium.
[2023-09-08] MEDS: ASPIRIN 325 MG TAB PO SCH (08:40)
[2023-09-08] MEDS: amLODIPine 5 MG TAB PO SCH (08:40)
[2023-09-08] MEDS: predniSONE 20 MG TAB PO SCH (08:41)
[2023-09-08] MEDS ORDERED: NON FORMULARY DRUG (Tiotropium 2.5 Mcg/Puff 10 PUFF Each) INHALATION SCH (09:00)
--- NOTE | 2023-09-08 10:30 | P.PN ---
Subjective Progress Note Date: 09/08/23 Principal diagnosis: Right middle lobe mass consistent with pulmonary carcinoma, with frozen section positive for non-small cell carcinoma. Past medical history significant for ch ronic obstructive pulmonary disease, chronic bronchitis, chronic back pain, bipolar disorder, anxiety, gastroesophageal reflux disease, chronic ongoing nicotine dependence, hard of hearing and degenerative joint disease. POD #1 Robotic assisted thoracoscopic right middle lobe wedge resection with m ediastinal lymph node dissection and on table diagnosis showing non-small cell carcinoma The patient was seen and examined in follow-up today September 08, 2023 at her bedside on the third floor cardiac stepdown unit. Currently she is sitting up in bed, is awake, alert, oriented x 3 and is in no acute apparent distress. She denies any complaints of shortness of breath at this time, although is compl aining of some surgical type pain to her right chest. She is currently rating her pain 8 out of 10 on the pain scale. Right pleural chest tube remains in place to low continuous wall suction -20 cm H2O. Intermittent air leak is present with expiration, draining thin serosanguineous drainage with 40 mL output in the last 8 hours and 70 mL output since surgery. Oxygen saturations are 97% on 3 L nasal cannula. Remote telemetry is showing sinus tachycardia heart rate 101 bpm. The patient reports last evening her chest tube was kinked and she developed some air underneath her skin which has improved this morning according to the patient. She still has some subcutaneous emphysema present to her face, neck, chest, back and bilateral upper arms. Laboratory and chest x- ray results were reviewed. Final surgical pathology results remain pending. Objective - Vital Signs Vital signs: Vital Signs Temp 97.9 F 09/08/23 08:00 Pulse 101 H 09/08/23 08:22 Resp 20 09/08/23 08:00 BP 137/76 09/08/23 08:00 Pulse Ox 92 L 09/08/23 08:14 FiO2 Intake & Output 09/07/23 09/08/23 09/08/23 18:59 06:59 18:59 Intake Total 2130 560 480 Output Total 452 44 Balance 1678 516 480 Intake: IV 2010 20 Invasive Line 1 10 20 Oral 120 540 480 Output: Chest Tube Drainage 44 Chest Tube Right 44 Drainage 27 Right Chest 27 Urine 400 Estimated Blood Loss 25 Other: Voiding Method Bedside Commode Bedside Commode # Voids 1 - Exam CONSTITUTIONAL: Appears comfortable, cooperative, no acute distress RESPIRATORY: Lungs sounds diminished bilaterally, with some expiratory wheezes. Respirations symmetrical, nonlabored. Currently on 3 L nasal cannula with oxygen saturation 97%. Strong cough. CARDIOVASCULAR: S1, S2 present. Regular rate and tachycardic rhythm, sinus tachycardia on telemetry, heart rate 101 bpm. Palpable peripheral pulses bilaterally. No edema present. No calf pain or tenderness noted. SCDs present. GASTROINTESTINAL: Abdomen soft, nontender, nondistended. Active bowel sounds present 4 quadrants. Tolerating diet. GENITOURINARY: Continues to void clear yellow urine. INTEGUMENTARY: Skin is warm and dry with evidence of good perfusion. Right thoracic incisions well approximated and covered with dry intact dressing. NEUROLOGIC: Cranial nerves II through XII intact. MUSKULOSKELETAL: Able to move all extremities, strength equal bilaterally, gait normal. PSYCHIATRIC: Alert and oriented to person place and time, appropriate affect, intact judgment and insight. INVASIVE LINES AND TUBES: Right pleural chest tube present and connected to wall suction, air leak present with expiration. Draining thin serosanguineous drainage with 40 mL output in the last 8 hours and 70 mL output since surgery. - Allied health notes Allied health notes reviewed: nursing - Labs CBC & Chem 7: 09/08/23 05:28 09/08/23 05:28 Labs: Abnormal Lab Results - Last 24 Hours (Table) 09/07/23 09/08/23 09/08/23 Range/Units 20:44 05:28 05:28 MCV 100.8 H (80.0-100.0) fL Sodium 131 L (137-145) mmol/L Chloride 97 L (98-107) mmol/L Carbon Dioxide 32 H (22-30) mmol/L Glucose 104 H (74-99) mg/dL POC Glucose (mg/dL) 114 H (70-110) mg/dL - Imaging and Cardiology Chest x-ray: report reviewed, image reviewed Assessment and Plan Assessment: Right middle lobe mass consistent with pulmonary carcinoma, status post robotic assisted thoracoscopic right middle lobe wedge resection with mediastinal lymph node dissection and on table diagnosis Chronic obstructive pulmonary disease with a preoperative FEV1 0.84 Chronic bronchitis Chronic back pain Bipolar disorder Anxiety Gastroesophageal reflux disease Chronic ongoing nicotine dependence Hard of hearing Degenerative joint disease Plan: We will keep her right pleural chest tube in place to low continuous wall suction -20 cm H2O. Continue to monitor for airleak resolution. Continue to monitor daily labs and chest x-rays. Encourage use of incentive spirometry 10 times every hour while awake. Discussed the importance of risk modification including smoking cessation upon discharge will be given the number to [phone]. Continue to monitor final pathology results. Increase activity as tolerated. Physical and Occupational Therapy have been consulted. Wean oxygen as tolerated. Bronchodilator management per pulmonary recommendations. Medical management other comorbidities per primary care service. Pain management per current as needed orders. More recommendations to follow based on patient's clinical course. Time with Patient: Greater than 30
--- NOTE | 2023-09-08 14:53 | P.CNPUL ---
History of Present Illness Consult date: 09/08/23 Reason for consult: dyspnea, cough, lung mass, abnormal CXR/CT Chief complaint: abnormal x-ray History of present illness: 63-year-old female with extensive history of smoking and nicotine use found to have responded on routine x-ray and CAT scan, PET scan came back strongly positive for right middle lobe neoplastic changespatient admitted for surgical resection. Patient has a long-standing history of smoking 2 packs a day for about 40 years, patient lately that down and stop smoking however is still intermittently smoking quarter to half pack per day. She had a history of the low-dose computed tomography scan 2016 negative for pulmonary nodules. However back in May right upper lobe infiltrate and a nodule and right middle lobe seen PET scan performed on July 16 came back strongly positive consistent with neoplasm. patient underwent right middle lobe nodule resection with 1 cm margins preliminary came back positive for non-small cell cancer Review of Systems All systems: negative Past Medical History Past Medical History: Chest Pain / Angina, COPD, GERD/Reflux, Hearing Disorder / Deafness, Hypertension, Osteoarthritis (OA), Respiratory Disorder Additional Past Medical History / Comment(s): Chronic bronchitis, sinus tachycardia, chronic back pain, migraines, bilateral hearing aid use, bilateral tinnitis, diverticulitis - colostomy, O2 3L/min at night History of Any Multi-Drug Resistant Organisms: None Reported Past Surgical History: Appendectomy, Heart Catheterization, Hysterectomy, Tubal Ligation Additional Past Surgical History / Comment(s): Loop recorder inserted and later removed, Lamont's procedure/colostomy 05/2023 Past Anesthesia/Blood Transfusion Reactions: No Reported Reaction Smoking Status: Former smoker - Past Family History Brother(s) Family Medical History: Coronary Artery Disease (CAD), Myocardial Infarction (RI) Additional Family Medical History / Comment(s): RI in his early 40s, had pacemaker. Sister(s) Family Medical History: Mitral Valve Prolapse (MVP) Father Additional Family Medical History / Comment(s): "Post Op MRSA infection- from complications of that." Mother Family Medical History: Cancer Additional Family Medical History / Comment(s): Lung cancer. Medications and Allergies Home Medications Medication Instructions Recorded Confirmed Type Budesonide-Formot 160-4.5 Mcg 2 puff INHALATION RT-BID #1 unit 12/01/17 09/04/23 Rx [Symbicort 160-4.5 Mcg Inhaler] Ipratropium-Albuterol Nebulize 3 ml INHALATION RT-TID PRN 11/03/22 09/04/23 History [Duoneb 0.5 mg-3 mg/3 ml Soln] amLODIPine [Norvasc] 5 mg PO QAM 12/26/22 09/04/23 History lamoTRIgine [LaMICtal] 100 mg PO BID 12/26/22 09/04/23 History ALPRAZolam [Xanax] 0.5 mg PO BID 02/08/23 09/04/23 History Tiotropium 2.5 Mcg/Puff [Spiriva 2 puff INHALATION QAM 06/06/23 09/04/23 History Respimat 2.5 Mcg] Aspirin 325 mg PO QAM 09/04/23 09/04/23 History HYDROcodone/APAP 7.5-325MG [[place] 1 tab PO BID PRN 09/04/23 09/04/23 History 7.5-325] Omeprazole 40 mg PO HS 09/04/23 09/04/23 History Sertraline [Zoloft] 50 mg PO BID 09/04/23 09/04/23 History predniSONE [Deltasone] 20 mg PO DAILY 09/04/23 09/04/23 History Allergies Allergy/AdvReac Type Severity Reaction Status Date / Time dust AdvReac Dyspnea Uncoded 09/07/23 06:09 Physical Exam Vitals: Vital Signs Temp Pulse Pulse Resp BP Pulse Ox 09/08/23 12:01 95 09/08/23 12:00 97.9 F 109 H 18 127/72 96 09/08/23 11:50 96 09/08/23 11:27 20 09/08/23 08:22 101 H 09/08/23 08:14 104 H 92 L 09/08/23 08:00 97.9 F 106 H 20 137/76 95 09/08/23 03:19 98.0 F 89 18 123/83 97 09/07/23 23:08 98.0 F 86 18 122/75 95 09/07/23 20:45 18 95 09/07/23 20:35 88 09/07/23 20:22 87 09/07/23 20:00 97.9 F 93 18 135/78 92 L 09/07/23 16:11 97.6 F 89 16 123/82 92 L 09/07/23 15:39 88 09/07/23 15:28 88 Intake and Output 09/07/23 09/08/23 09/08/23 22:59 06:59 14:59 Intake Total 670 10 860 Output Total 26 37 18 Balance 644 -27 842 Intake: IV 10 10 20 Invasive Line 1 10 10 20 Oral 660 840 Output: Chest Tube Drainage 7 37 18 Chest Tube Right 7 37 18 Drainage 19 Right Chest 19 Other: Voiding Method Bedside Commode Bedside Commode # Voids 1 0 # Bowel Movements 0 - Constitutional General appearance: average body habitus, disheveled - EENT Eyes: poor dentition Ears: bilateral: normal - Neck Carotids: bilateral: upstroke normal Thyroid: bilateral: normal size - Respiratory month related nasal cannula oxygen saturation 97 to, right-sided chest tube with air leak Respiratory: bilateral: diminished - Cardiovascular Rhythm: regular Heart sounds: normal: S1, S2 - Gastrointestinal General gastrointestinal: normal bowel sounds - Neurologic Neurologic: CNII-XII intact - Musculoskeletal Musculoskeletal: gait normal, generalized weakness, strength equal bilaterally - Psychiatric Psychiatric: A&O x's 3, appropriate affect, intact judgment & insight Results - Laboratory Findings CBC and BMP: 09/08/23 05:28 09/08/23 05:28 Abnormal lab findings: Abnormal Labs 09/07/23 09/08/23 09/08/23 20:44 05:28 05:28 MCV 100.8 H Sodium 131 L Chloride 97 L Carbon Dioxide 32 H Glucose 104 H POC Glucose (mg/dL) 114 H - Diagnostic Findings Chest x-ray: report reviewed, image reviewed (right-sided chest tube with a r ight apical pneumothorax with pneumopericardium and pneumomediastinum extensive subcu air) Assessment and Plan Assessment: end-stage COPDwith baseline FEV1 of 0.84 Right-sided middle lobe nodule preliminary biopsy came back positive for non- small cell cancer generalized anxiety disorder Degenerative joint disease 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 joints Extensive history of smoking and nicotine use has been still smoking a quarter pack a day Right-sided small pneumothorax, pneumomediastinum, pneumopericardium, extensive subcutaneous emphysema with right-sided chest tube air leaking Plan: oncology evaluation Follow-up on final path report Keep right-sided chest tube on suction Increase deep breathing exercises incentive spirometry Continue oxygen titrated down as tolerated currently on 3 L we'll maintain that Continue bronchodilators Taper and DC prednisone Time with Patient: Greater than 30
[2023-09-08] MEDS: methocarbamoL 500 MG TAB PO PRN (17:56)
--- NOTE | 2023-09-08 21:51 | PN ---
PROGRESS NOTE SUBJECTIVE: The patient is status post right middle lobe nodule resection with some 1 cm margins, came back positive for non-small cell lung cancer in the preliminary. OBJECTIVE: CARDIOVASCULAR: S1, S2. LUNGS: Transmitted upper sounds. GI: Soft. HEMATOLOGY: Negative for Homans. She has COPD, right-sided middle lobe nodule, non-small cell cancer, anxiety, COPD, nicotine addiction, right-sided small pneumothorax, pneumomediastinum, pneumopericardium, subcutaneous emphysema with right-sided chest tube severely. Get Oncology to see status chest, deep breathing. Continue on oxygen, bronchodilators. Prognosis guarded. MMODL / IJN: [id number] /
[2023-09-09 06:25] LABS: HCT 41.8 % (34.0-46.0); HGB 13.2 gm/dL (11.4-16.0); MCH 31.4 pg (25.0-35.0); MCHC 31.5 g/dL (31.0-37.0); MCV 99.4 fL (80.0-100.0); Mean Platelet Volume 7.8; Platelet Count 424 k/uL (150-450); RDW 13.7 % (11.5-15.5); WBC 9.5 k/uL (3.8-10.6)
[2023-09-09 06:38] LABS: African American GFR (CKD) >90 (>60 ml/min/1.73 sqM); Anion Gap 3 mmol/L; Blood Urea Nitrogen 8 mg/dL (7-17); Calcium 9.2 mg/dL (8.4-10.2); Carbon Dioxide 31 mmol/L (22-30); Chloride 97 mmol/L (98-107); Glucose 103 mg/dL (74-99); Non-African American GFR(CKD) >90 (>60 ml/min/1.73 sqM); Sodium 131 mmol/L (137-145)
--- NOTE | 2023-09-09 07:16 | XR ---
EXAMINATION TYPE: XR chest 1V portable DATE OF EXAM: 09/09/2023 COMPARISON: 09/07/2023 HISTORY: Postop right middle lobe wedge resection TECHNIQUE: Single frontal view of the chest is obtained. FINDINGS: No change in the right chest tube the tip of which is in the right lung apex. No change in diffuse bilateral subcutaneous emphysema. There is a right hilar mass. There is no pneumothorax. The left lung is clear. There are severe emphysematous changes within the left lung. IMPRESSION: Acute cardiopulmonary disease with no interval change.
--- NOTE | 2023-09-09 09:23 | P.PN ---
Subjective Progress Note Date: 09/09/23 Principal diagnosis: Right middle lobe mass consistent with pulmonary carcinoma, with frozen section positive for non-small cell carcinoma. Past medical history significant for ch ronic obstructive pulmonary disease, chronic bronchitis, chronic back pain, bipolar disorder, anxiety, gastroesophageal reflux disease, chronic ongoing nicotine dependence, hard of hearing and degenerative joint disease. POD #2 Robotic assisted thoracoscopic right middle lobe wedge resection with m ediastinal lymph node dissection and on table diagnosis showing non-small cell carcinoma The patient was seen and examined in follow-up today September 09, 2023 at her bedside on the third floor cardiac stepdown unit. She is currently sitting up to the bedside chair, is awake, alert, oriented x 3 and is in no acute apparent distress. Denies any complaints of shortness of breath at this time, continues to complain of surgical type pain to her right chest tube insertion site. She reports that her pain is much better controlled today and she appears more comfortable. She has been up ambulating in her room to the bathroom with standby assistance from nursing staff. Remote telemetry showing normal sinus rhythm heart rate 88 bpm. Oxygen saturations are 97% on 3 L nasal cannula, and she is achieving 1000 mL on her incentive spirometry with encouragement. Right pleural chest tube remains in place to low continuous wall suction -20 cm H2O. Continuous airleak is present. Draining thin serosanguineous drainage with 15 mL output in the last 8 hours and 40 mL output in the last 24 hours. Laboratory and chest x-ray results reviewed. Surgical pathology results remain pending. Objective - Vital Signs Vital signs: Vital Signs Temp 98.4 F 09/09/23 07:24 Pulse 88 09/09/23 09:16 Resp 18 09/09/23 07:24 BP 157/85 09/09/23 07:24 Pulse Ox 95 09/09/23 07:24 FiO2 Intake & Output 09/08/23 09/09/23 09/09/23 18:59 06:59 18:59 Intake Total 980 20 Output Total 38 21 0 Balance 942 -1 0 Weight 60.9 kg Intake: IV 20 20 Invasive Line 1 20 20 Oral 960 Output: Chest Tube Drainage 38 21 0 Chest Tube Right 38 21 0 Other: Voiding Method Toilet # Voids 0 2 # Bowel Movements 0 - Exam CONSTITUTIONAL: Appears comfortable, cooperative, no acute distress RESPIRATORY: Lungs sounds diminished bilaterally, with some faint expiratory wheezes. Respirations symmetrical, nonlabored. Currently on 3 L nasal cannula with oxygen saturation 97%. Strong cough. Achieving 1000 mL on her incentive spirometry with encouragement. CARDIOVASCULAR: S1, S2 present. Regular rate and rhythm, normal sinus rhythm on telemetry, heart rate 88 bpm. Palpable peripheral pulses bilaterally. No edema present. No calf pain or tenderness noted. SCDs present. GASTROINTESTINAL: Abdomen soft, nontender, nondistended. Active bowel sounds present 4 quadrants. Tolerating diet. GENITOURINARY: Continues to void clear yellow urine. INTEGUMENTARY: Skin is warm and dry with evidence of good perfusion. Right tho racic incisions well approximated and covered with dry intact dressing. NEUROLOGIC: Cranial nerves II through XII intact. MUSKULOSKELETAL: Able to move all extremities, strength equal bilaterally, gait normal. PSYCHIATRIC: Alert and oriented to person place and time, appropriate affect, intact judgment and insight. INVASIVE LINES AND TUBES: Right pleural chest tube present and connected to wal l suction, small continuous airleak present. Draining thin serosanguineous drainage with 15 mL output in the last 8 hours and 40 mL output since surgery. - Allied health notes Allied health notes reviewed: nursing - Labs CBC & Chem 7: 09/09/23 05:52 09/09/23 05:52 Labs: Abnormal Lab Results - Last 24 Hours (Table) 09/09/23 Range/Units 05:52 Sodium 131 L (137-145) mmol/L Chloride 97 L (98-107) mmol/L Carbon Dioxide 31 H (22-30) mmol/L Creatinine 0.49 L (0.52-1.04) mg/dL Glucose 103 H (74-99) mg/dL - Imaging and Cardiology Chest x-ray: report reviewed, image reviewed Assessment and Plan Assessment: Right middle lobe mass consistent with pulmonary carcinoma, status post robotic assisted thoracoscopic right middle lobe wedge resection with mediastinal lymph node dissection and on table diagnosis Chronic obstructive pulmonary disease with a preoperative FEV1 0.84 Chronic bronchitis Chronic back pain Bipolar disorder Anxiety Gastroesophageal reflux disease Chronic ongoing nicotine dependence Hard of hearing Degenerative joint disease Plan: We will keep her right pleural chest tube in place to low continuous wall suction -20 cm H2O. Continue to monitor for airleak resolution. Continue to monitor daily labs and chest x-rays. Encourage use of incentive spirometry 10 times every hour while awake. Discussed the importance of risk modification including smoking cessation upon discharge will be given the number to [phone]. Continue to monitor final pathology results. Increase activity as tolerated. Physical and Occupational Therapy have been following. Wean oxygen as tolerated. Bronchodilator management per pulmonary recommendations. Medical management other comorbidities per primary care service. Pain management per current as needed orders. Continue Robaxin 500 mg p.o. 4 times daily as needed for additional pain control More recommendations to follow based on patient's clinical course. Time with Patient: Greater than 30
--- NOTE | 2023-09-09 13:46 | P.PN ---
Subjective Progress Note Date: 09/09/23 Principal diagnosis: end-stage COPDwith baseline FEV1 of 0.84 Right-sided middle lobe nodule preliminary biopsy came back positive for non- small cell cancer generalized anxiety disorder Degenerative joint disease 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 joints Extensive history of smoking and nicotine use has been still smoking a quarter pack a day Right-sided small pneumothorax, pneumomediastinum, pneumopericardium, extensive subcutaneous emphysema with right-sided chest tube air leaking 09/09/2023, patient seen eval examined during rounds labs reviewed medications and care plan discussed, still have ongoing puffiness and subcu emphysema is present, get short of breath on activity and exertion, denies any chest pain diffuse aches and pain at the operative site however is present has been on pain medicines. Patient continued to have right-sided chest tube with a air leak.x right-sided chest tube imaging towards the apex, extensive bilateral subcu e mphysema more so on the right side compared left side right-sided pneumothorax cannot be excluded. 63-year-old female with extensive history of smoking and nicotine use found to have responded on routine x-ray and CAT scan, PET scan came back strongly positive for right middle lobe neoplastic changespatient admitted for surgical resection. Patient has a long-standing history of smoking 2 packs a day for about 40 years, patient lately that down and stop smoking however is still intermittently smoking quarter to half pack per day. She had a history of the low-dose computed tomography scan 2016 negative for pulmonary nodules. However back in May right upper lobe infiltrate and a nodule and right middle lobe seen PET scan performed on July 16 came back strongly positive consistent with ne oplasm. patient underwent right middle lobe nodule resection with 1 cm margins preliminary came back positive for non-small cell cancer Objective - Vital Signs Vital signs: Vital Signs Temp 98.4 F 09/09/23 07:24 Pulse 105 H 09/09/23 13:07 Resp 20 09/09/23 11:22 BP 127/82 09/09/23 11:22 Pulse Ox 94 L 09/09/23 11:22 FiO2 Intake & Output 09/08/23 09/09/23 09/09/23 18:59 06:59 18:59 Intake Total 980 20 120 Output Total 38 21 862 Balance 332 1 -372 Weight 60.9 kg Intake: IV 20 20 Invasive Line 1 20 20 Oral 960 120 Output: Chest Tube Drainage 38 21 12 Chest Tube Right 38 21 12 Urine 850 Other: Voiding Method Toilet Toilet # Voids 0 2 # Bowel Movements 0 - Exam - Constitutional General appearance: average body habitus, disheveled - EENT Eyes: poor dentition Ears: bilateral: normal - Neck Carotids: bilateral: upstroke normal Thyroid: bilateral: normal size - Respiratory month related nasal cannula oxygen saturation 97 to, right-sided chest tube with air leak Respiratory: bilateral: diminished - Cardiovascular Rhythm: regular Heart sounds: normal: S1, S2 - Gastrointestinal General gastrointestinal: normal bowel sounds - Neurologic Neurologic: CNII-XII intact - Musculoskeletal Musculoskeletal: gait normal, generalized weakness, strength equal bilaterally - Psychiatric Psychiatric: A&O x's 3, appropriate affect, intact judgment & insight - Labs CBC & Chem 7: 09/09/23 05:52 09/09/23 05:52 Labs: Abnormal Lab Results - Last 24 Hours (Table) 09/09/23 Range/Units 05:52 Sodium 131 L (137-145) mmol/L Chloride 97 L (98-107) mmol/L Carbon Dioxide 31 H (22-30) mmol/L Creatinine 0.49 L (0.52-1.04) mg/dL Glucose 103 H (74-99) mg/dL Assessment and Plan Assessment: end-stage COPDwith baseline FEV1 of 0.84 Right-sided middle lobe nodule preliminary biopsy came back positive for non- small cell cancer generalized anxiety disorder Degenerative joint disease 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 joints Extensive history of smoking and nicotine use has been still smoking a quarter pack a day Right-sided small pneumothorax, pneumomediastinum, pneumopericardium, extensive subcutaneous emphysema with right-sided chest tube air leaking Plan: oncology evaluation, Dr. Samaniego has been consulted Follow-up on final path report Keep right-sided chest tube on suction Increase deep breathing exercises incentive spirometry, increase activity as tolerated Continue oxygen titrated down as tolerated currently on 3 L we'll maintain that Continue bronchodilators Taper and DC prednisone Time with Patient: Greater than 30
--- NOTE | 2023-09-09 15:05 | P.CONS ---
History of Present Illness - Reason for Consult Consult date: 09/09/23 Lung nodule - History of Present Illness Ms. Brar is a 63-year-old woman with a past medical history significant for COPD along with lung nodule suspicious for malignancy for whom we are consulted for management recommendations after wedge resection and mediastinal lymph node dissection. She has been noted to have right middle lobe nodule on CT imaging since March 2019 that has been steadily increasing in size. CT of the chest without contrast on 06/11/2023 noted this lesion along with a not previously visualized right upper lobe nodule measuring 1.3 x 0.6 cm along with emphysematous changes. No size of the right middle lobe nodule was reported. PET/CT was performed on 07/16/2023 noting FDG avidity of the right middle lobe lesion measuring 1.17 cm with nonspecific uptake in the right upper lobe. There were no evidence of distant metastatic disease or FDG avid lymphadenopathy at that time. Biopsy versus definitive management was discussed with the patient and she elected to pursue definitive management. Wedge resection with mediastinal lymph node dissection was performed on 09/07/2023. Final surgical pathology is pending. Pulmonology note does state preliminary pathology revealing non-small cell lung cancer, although I have not discussed with pathology personally. Currently, she has chest tube in place that is causing mild discomfort. She did have subcutaneous emphysema secondary to malplacement of the chest tube. She denies any dyspnea, fevers, or chills. Review of Systems 14 point review of systems was conducted pertinent positives and negatives as noted per HPI Past Medical History Past Medical History: Chest Pain / Angina, COPD, GERD/Reflux, Hearing Disorder / Deafness, Hypertension, Osteoarthritis (OA), Respiratory Disorder Additional Past Medical History / Comment(s): Chronic bronchitis, sinus tachycardia, chronic back pain, migraines, bilateral hearing aid use, bilateral tinnitis, diverticulitis - colostomy, O2 3L/min at night History of Any Multi-Drug Resistant Organisms: None Reported Past Surgical History: Appendectomy, Heart Catheterization, Hysterectomy, Tubal Ligation Additional Past Surgical History / Comment(s): Loop recorder inserted and later removed, Lamont's procedure/colostomy 05/2023 Past Anesthesia/Blood Transfusion Reactions: No Reported Reaction Smoking Status: Former smoker - Past Family History Brother(s) Family Medical History: Coronary Artery Disease (CAD), Myocardial Infarction (HI) Additional Family Medical History / Comment(s): HI in his early 40s, had pacemaker. Sister(s) Family Medical History: Mitral Valve Prolapse (MVP) Father Additional Family Medical History / Comment(s): "Post Op MRSA infection- from complications of that." Mother Family Medical History: Cancer Additional Family Medical History / Comment(s): Lung cancer. Medications and Allergies Home Medications Medication Instructions Recorded Confirmed Type Budesonide-Formot 160-4.5 Mcg 2 puff INHALATION RT-BID #1 unit 12/01/17 09/04/23 Rx [Symbicort 160-4.5 Mcg Inhaler] Ipratropium-Albuterol Nebulize 3 ml INHALATION RT-TID PRN 11/03/22 09/04/23 History [Duoneb 0.5 mg-3 mg/3 ml Soln] amLODIPine [Norvasc] 5 mg PO QAM 12/26/22 09/04/23 History lamoTRIgine [LaMICtal] 100 mg PO BID 12/26/22 09/04/23 History ALPRAZolam [Xanax] 0.5 mg PO BID 02/08/23 09/04/23 History Tiotropium 2.5 Mcg/Puff [Spiriva 2 puff INHALATION QAM 06/06/23 09/04/23 History Respimat 2.5 Mcg] Aspirin 325 mg PO QAM 09/04/23 09/04/23 History HYDROcodone/APAP 7.5-325MG [[place] 1 tab PO BID PRN 09/04/23 09/04/23 History 7.5-325] Omeprazole 40 mg PO HS 09/04/23 09/04/23 History Sertraline [Zoloft] 50 mg PO BID 09/04/23 09/04/23 History predniSONE [Deltasone] 20 mg PO DAILY 09/04/23 09/04/23 History Allergies Allergy/AdvReac Type Severity Reaction Status Date / Time dust AdvReac Dyspnea Uncoded 09/07/23 06:09 Physical Exam Vitals: Vital Signs Temp Pulse Pulse Resp BP Pulse Ox 09/09/23 12:41 88 09/09/23 12:31 90 09/09/23 11:22 105 H 20 127/82 94 L 09/09/23 09:16 88 09/09/23 09:02 90 09/09/23 07:24 98.4 F 96 18 157/85 95 09/09/23 03:30 88 16 133/87 97 09/08/23 23:25 97 16 127/84 96 09/08/23 21:44 96 09/08/23 21:32 96 09/08/23 20:00 97.8 F 102 H 16 111/79 97 09/08/23 16:24 100 09/08/23 16:16 104 H 09/08/23 15:03 98 F 104 H 16 116/66 93 L Intake and Output 09/08/23 09/09/23 09/09/23 22:59 06:59 14:59 Intake Total 130 10 120 Output Total 27 14 862 Balance 507 -0 -262 Intake: IV 10 10 Invasive Line 1 10 10 Oral 120 120 Output: Chest Tube Drainage 27 14 12 Chest Tube Right 27 14 12 Urine 850 Other: Voiding Method Toilet Toilet Toilet # Voids 2 Weight 60.9 kg - Constitutional General appearance: cooperative, no acute distress - EENT Eyes: EOMI - Neck Subcutaneous crepitus palpated in the face and neck Neck: no lymphadenopathy - Respiratory Respiratory: right: wheezing (Expiratory wheezing appreciated in the right upper and middle lung gaviria) - Cardiovascular Rhythm: regular - Gastrointestinal General gastrointestinal: no distended, normal bowel sounds, soft, no tenderness - Neurologic Neurologic: CNII-XII intact Results CBC & Chem 7: 09/09/23 05:52 09/09/23 05:52 Labs: Abnormal Lab Results - Last 24 Hours (Table) 09/09/23 Range/Units 05:52 Sodium 131 L (137-145) mmol/L Chloride 97 L (98-107) mmol/L Carbon Dioxide 31 H (22-30) mmol/L Creatinine 0.49 L (0.52-1.04) mg/dL Glucose 103 H (74-99) mg/dL Assessment and Plan (1) Lung nodule Current Visit: No Status: Acute Code(s): R91.1 - SOLITARY PULMONARY NODULE SNOMED Code(s): 658268555 Plan: #Lung nodule -Noted to have slowly increasing size of right middle lobe lung nodule that has been visualized since March 2019 -PET/CT in July 2023 noted FDG avidity of the right middle lobe and measured approximately 1.17 cm at that time. There is nonspecific uptake in the right upper lobe with no evidence of FDG avid mediastinal lymphadenopathy or metastatic disease -She underwent wedge resection with mediastinal lymph node dissection on 09/07/2023 with a final pathology pending -We discussed that the final recommendations from an oncology perspective would depend on the final pathology with regards to size, margins, visceropleural invasion, and lymph node status from the final pathology -We did discuss different possibilities postsurgically, including surveillance alone versus adjuvant treatment with a combination of chemotherapy and immunotherapy or targeted therapy depending on lymph node status and molecular profile of the malignancy -I would defer her acute management post-operatively to the cardiothoracic meraz rgical team -The results of pathology can be reviewed in clinic with definitive management recommendations discussed at that time Ross Dwyer MD
--- NOTE | 2023-09-10 01:51 | PN ---
PROGRESS NOTE SUBJECTIVE: Status post lobectomy for lung adenocarcinoma. Waiting for final pathology. Remains on her breathing treatments. large amount of subcutaneous edema in her chest as well as large facial swelling until that was fixed. She feels better today. OBJECTIVE: VITAL SIGNS: Temp 97.5, pulse 108, blood pressure 123/79, 97 on room air. CARDIOVASCULAR: S1, S2. LUNGS: Transmitted upper airway sounds, scattered rhonchi. HEMATOLOGY: Negative Homans. PSYCHIATRIC: Fair mood and affect. NEUROLOGIC: Alert and oriented x3. White count is 9.5. Sodium 131, potassium 4.0, carbon dioxide 31, creatinine 0.49. Continue current treatment. Take chest tube out when the leak is over. Oncology saw the patient today. We will wait for the final pathology to say what to do. Surveillance versus chemotherapy or immunotherapy, depending on the biopsy reports. Prognosis guarded. MMODL / IJN: [id number] /
[2023-09-10 06:36] LABS: Basophils % (A) 0 %; Eosinophils # (A) 0.4 k/uL (0-0.7); Eosinophils % (A) 5 %; HCT 39.2 % (34.0-46.0); HGB 12.5 gm/dL (11.4-16.0); Lymphocytes # (A) 1.5 k/uL (1.0-4.8); Lymphocytes % (A) 17 %; MCHC 31.9 g/dL (31.0-37.0); MCV 100.1 fL (80.0-100.0); Mean Platelet Volume 7.5; Monocytes # (A) 0.5 k/uL (0-1.0); Monocytes % (A) 5 %; Neutrophils % (A) 71 %; Platelet Count 369 k/uL (150-450); RBC 3.91 m/uL (3.80-5.40); RDW 14.2 % (11.5-15.5); WBC 8.5 k/uL (3.8-10.6)
[2023-09-10 06:59] LABS: ALT 17 U/L (4-34); AST 28 U/L (14-36); African American GFR (CKD) >90 (>60 ml/min/1.73 sqM); Albumin 3.6 g/dL (3.5-5.0); Alkaline Phosphatase 76 U/L (38-126); Anion Gap 3 mmol/L; Blood Urea Nitrogen 8 mg/dL (7-17); Calcium 9.1 mg/dL (8.4-10.2); Carbon Dioxide 31 mmol/L (22-30); Chloride 98 mmol/L (98-107); Glucose 108 mg/dL (74-99); Non-African American GFR(CKD) >90 (>60 ml/min/1.73 sqM); Potassium 3.9 mmol/L (3.5-5.1); Sodium 132 mmol/L (137-145); Total Bilirubin 0.5 mg/dL (0.2-1.3); Total Protein 5.7 g/dL (6.3-8.2)
--- NOTE | 2023-09-10 07:16 | XR ---
EXAMINATION TYPE: XR chest 1V portable DATE OF EXAM: 09/10/2023 COMPARISON: 09/09/2023 HISTORY: Postop right middle lobe wedge resection TECHNIQUE: Single frontal view of the chest is obtained. FINDINGS: There is a chest tube in the right lung apex unchanged in position. There is no pneumothorax. There is marked stable subcutaneous emphysema. The heart and pulmonary vasculature are normal. There is no airspace consolidation. IMPRESSION: No significant interval change compared to previous
--- NOTE | 2023-09-10 09:18 | P.PN ---
Subjective Progress Note Date: 09/10/23 Principal diagnosis: Right middle lobe mass consistent with pulmonary carcinoma, with frozen section positive for non-small cell carcinoma. Past medical history significant for ch ronic obstructive pulmonary disease, chronic bronchitis, chronic back pain, bipolar disorder, anxiety, gastroesophageal reflux disease, chronic ongoing nicotine dependence, hard of hearing and degenerative joint disease. POD #3 Robotic assisted thoracoscopic right middle lobe wedge resection with m ediastinal lymph node dissection and on table diagnosis showing non-small cell carcinoma The patient was seen and examined in follow-up today September 10, 2023 at her bedside on the third floor cardiac stepdown unit. She is currently sitting up to the bedside chair, is awake, alert, oriented x 3 and is in good spirits today. She currently has 2 family members present at her bedside. She denies any complaints of shortness of breath, and is complaining of some pain to her back which is chronic in nature. She states that her pain is much better controlled on her current pain medication regimen. Right pleural chest tube remains in place to low continuous wall suction -20 cm H2O. Continuous small air leak is present. Draining thin serosanguineous drainage with 50 mL output in the last 24 hours. She reports she has been up ambulating several times a day in her room as far has her suction will allow her to. She remains hemodynamically stable and is currently on no inotropic or pressor support. Oxygen saturations are 96% on 3 L nasal cannula and she is achieving 1000 mL on her incentive spirometry with encouragement. Laboratory and chest x-ray results were reviewed. Surgical pathology results remain pending. Objective - Vital Signs Vital signs: Vital Signs Temp 97.5 F L 09/09/23 20:30 Pulse 82 09/10/23 08:01 Resp 20 09/10/23 03:30 BP 121/73 09/10/23 03:30 Pulse Ox 96 09/10/23 03:30 FiO2 Intake & Output 09/09/23 09/10/23 09/10/23 18:59 06:59 18:59 Intake Total 600 Output Total 1882 1330 0 Balance -1282 -1330 0 Weight 61.5 kg Intake: Oral 600 Output: Chest Tube Drainage 32 30 Chest Tube Right 32 30 Gastric Drainage 0 Urine 1850 1300 0 Stool 0 Urine/Stool Mix 0 Emesis 0 Oral Regurgitation 0 Other 0 Other: Voiding Method Toilet Toilet # Voids 0 # Bowel Movements 0 - Exam CONSTITUTIONAL: Appears comfortable, cooperative, no acute distress RESPIRATORY: Lungs sounds diminished bilaterally, with some faint expiratory wheezes. Respirations symmetrical, nonlabored. Currently on 3 L nasal cannula with oxygen saturation 96%. Strong cough. Achieving 1000 mL on her incentive spirometry with encouragement. CARDIOVASCULAR: S1, S2 present. Regular rate and rhythm, normal sinus rhythm on telemetry, heart rate 99 bpm. Palpable peripheral pulses bilaterally. No edema present. No calf pain or tenderness noted. SCDs present. GASTROINTESTINAL: Abdomen soft, nontender, nondistended. Active bowel sounds present 4 quadrants. Tolerating diet. Left lower abdominal quadrant colostomy with small amount of formed stool. GENITOURINARY: Continues to void clear yellow urine. INTEGUMENTARY: Skin is warm and dry with evidence of good perfusion. Right thoracic incisions well approximated and covered with dry intact dressing. NEUROLOGIC: Cranial nerves II through XII intact. MUSKULOSKELETAL: Able to move all extremities, strength equal bilaterally, gait normal. PSYCHIATRIC: Alert and oriented to person place and time, appropriate affect, intact judgment and insight. INVASIVE LINES AND TUBES: Right pleural chest tube present and connected to wall suction, small continuous airleak present. Draining thin serosanguineous drainage with 20 mL output in the last 8 hours and 50 mL output in the last 24 hours. - Allied health notes Allied health notes reviewed: nursing - Labs CBC & Chem 7: 09/10/23 06:13 09/10/23 06:09 Labs: Abnormal Lab Results - Last 24 Hours (Table) 09/10/23 09/10/23 Range/Units 06:09 06:13 MCV 100.1 H (80.0-100.0) fL Sodium 132 L (137-145) mmol/L Carbon Dioxide 31 H (22-30) mmol/L Creatinine 0.49 L (0.52-1.04) mg/dL Glucose 108 H (74-99) mg/dL Total Protein 5.7 L (6.3-8.2) g/dL - Imaging and Cardiology Chest x-ray: report reviewed, image reviewed Assessment and Plan Assessment: Right middle lobe mass consistent with pulmonary carcinoma, status post robotic assisted thoracoscopic right middle lobe wedge resection with mediastinal lymph node dissection and on table diagnosis Chronic obstructive pulmonary disease with a preoperative FEV1 0.84 Chronic bronchitis Chronic back pain History of diverticulitis causing colonic obstruction, status post sigmoid colectomy with end colostomy on June 12, [address] Joyner Bipolar disorder Anxiety Gastroesophageal reflux disease Chronic ongoing nicotine dependence Hard of hearing Degenerative joint disease Plan: We will keep her right pleural chest tube in place to low continuous wall suction -20 cm H2O. Continue to monitor for airleak resolution and subcutaneous emphysema resolution. Continue to monitor daily chest x-rays. Encourage use of incentive spirometry 10 times every hour while awake. Discussed the importance of risk modification including smoking cessation upon discharge will be given the number to [phone]. Continue to monitor final pathology results. Results remain pending. Increase activity as tolerated. Physical and Occupational Therapy have been following. Wean oxygen as tolerated. Bronchodilator management per pulmonary recomme ndations. Medical management other comorbidities per primary care service. Pain management per current as needed orders. Continue Robaxin 500 mg p.o. 4 times daily as needed for additional pain control More recommendations to follow based on patient's clinical course. Time with Patient: Greater than 30
--- NOTE | 2023-09-11 03:08 | PN ---
PROGRESS NOTE OBJECTIVE: VITAL SIGNS: Blood pressure 132/75, O2 97 on 2 L, temperature 98.5, pulse 80s to 90s, and respiratory rate 20 to 24. LABS: Show white count is 8.5, hemoglobin is 12.5, sodium 132, potassium 3.9, carbon dioxide is 31. Pathology I still see is pending. OBJECTIVE: VITAL SIGNS: Reviewed. GENERAL: She is comfortable. LUNGS: Crackles. CARDIOVASCULAR: S1, S2. ABDOMEN: Soft. INTEGUMENT: Normal. NEUROLOGIC: Cranial nerves intact. PSYCH: Fair mood and affect. LABORATORY DATA: White count 8.5, hemoglobin 12.5, sodium 132, potassium 3.9, BUN is 8, creatinine 0.4. Right middle lobe mass consistent with pulmonary carcinoma, right middle lobe resection, mediastinal lymph node dissection, COPD, bipolar, diverticulitis, COPD, GERD, anxiety, nicotine addiction, degenerative disk disease. Hopefully get the chest tube out soon. Air leak resolution, subcutaneous emphysema resolution, all this is worse. She had a plugged tube 2 days ago in which her face swells, which is slowly improving. The prognosis is guarded. Please see further orders. MMODL / IJN: [id number] /
--- NOTE | 2023-09-11 04:40 | XR ---
EXAM: XR Chest, 1 View CLINICAL HISTORY: ITS.REASON XR Reason: Check chest tube placement TECHNIQUE: Frontal view of the chest. COMPARISON: 09/10/2023 IMPRESSION: Right-sided chest tube in place. No significant pneumothorax. Diffuse soft tissue emphysema
[2023-09-11] MEDS: predniSONE 10 MG TAB PO SCH (08:10)
--- NOTE | 2023-09-11 10:20 | P.PN ---
Subjective Progress Note Date: 09/11/23 Principal diagnosis: Right middle lobe mass consistent with pulmonary carcinoma, with frozen section positive for non-small cell carcinoma. Past medical history significant for ch ronic obstructive pulmonary disease, chronic bronchitis, chronic back pain, bipolar disorder, anxiety, gastroesophageal reflux disease, chronic ongoing nicotine dependence, hard of hearing and degenerative joint disease. POD #4 Robotic assisted thoracoscopic right middle lobe wedge resection with m ediastinal lymph node dissection and on table diagnosis showing non-small cell carcinoma Prolonged airleak, unexpected but not uncommon after lung surgery The patient was seen and examined in follow-up today September 11, 2023 at her bedside on the third floor cardiac stepdown unit. She is currently sitting up to the bedside chair, is awake, alert, and oriented x 3. The patient denies any complaints of shortness of breath at this time, although is complaining worsening of her subcutaneous emphysema which is extended up into her face and surrounding her eyes. She is complaining of pain 6 out of 10 on the pain scale to her chest tube insertion site. The patient reports that her pain is contro lled on the current pain medication regimen. Oxygen saturations are 94% on 3 L nasal cannula and she is achieving 1000 mL on her incentive spirometry. Remote telemetry is showing normal sinus rhythm heart rate 91 bpm. Right pleural chest tube remains in place to low continuous wall suction -20 cm H2O. Intermittent airleak present with expiration, coughing and when talking. Draining thin seros anguineous drainage with 15 mL output in the last 8 hours and 90 mL output in the last 24 hours. The patient reports she has been up ambulating in her room independently. Surgical pathology results remain pending. Chest x-ray results reviewed. Objective - Vital Signs Vital signs: Vital Signs Temp 98.2 F 09/10/23 20:40 Pulse 100 09/11/23 09:08 Resp 18 09/11/23 04:30 BP 142/74 09/11/23 04:30 Pulse Ox 92 L 09/11/23 04:30 FiO2 Intake & Output 09/10/23 09/11/23 09/11/23 18:59 06:59 18:59 Intake Total 360 118 Output Total 1410 2013 200 Balance -105 -2013 - Intake: Oral 360 118 Output: Chest Tube Drainage 10 14 Chest Tube Right 10 14 Gastric Drainage 0 Urine 1350 1999 200 Stool 50 Urine/Stool Mix 0 Emesis 0 Oral Regurgitation 0 Other 0 Other: Voiding Method Toilet Toilet # Voids 0 2 # Bowel Movements 0 1 - Exam CONSTITUTIONAL:Cooperative, no acute distress RESPIRATORY: Lungs sounds diminished bilaterally, with some faint expiratory wheezes. Respirations symmetrical, nonlabored. Currently on 3 L nasal cannula with oxygen saturation 94%. Strong cough. Achieving 1000 mL on her incentive spirometry with encouragement. CARDIOVASCULAR: S1, S2 present. Regular rate and rhythm, normal sinus rhythm on telemetry, heart rate 99 bpm. Palpable peripheral pulses bilaterally. No edema present. No calf pain or tenderness noted. SCDs present. GASTROINTESTINAL: Abdomen soft, nontender, nondistended. Active bowel sounds present 4 quadrants. Tolerating diet. Left lower abdominal quadrant colostomy with small amount of formed stool. GENITOURINARY: Continues to void clear yellow urine. INTEGUMENTARY: Skin is warm and dry with evidence of good perfusion. Right thoracic incisions well approximated and covered with dry intact dressing. NEUROLOGIC: Cranial nerves II through XII intact. MUSKULOSKELETAL: Able to move all extremities, strength equal bilaterally, gait normal. PSYCHIATRIC: Alert and oriented to person place and time, appropriate affect, intact judgment and insight. INVASIVE LINES AND TUBES: Right pleural chest tube present and connected to wall suction, intermittent airleak present. Draining thin serosanguineous drainage with 15 mL output in the last 8 hours and 90 mL output in the last 24 hours. - Allied health notes Allied health notes reviewed: nursing - Labs CBC & Chem 7: 09/10/23 06:13 09/10/23 06:09 - Imaging and Cardiology Chest x-ray: report reviewed, image reviewed Assessment and Plan Assessment: Right middle lobe mass consistent with pulmonary carcinoma, status post robotic assisted thoracoscopic right middle lobe wedge resection with mediastinal lymph node dissection and on table diagnosis Chronic obstructive pulmonary disease with a preoperative FEV1 0.84 Chronic bronchitis Chronic back pain History of diverticulitis causing colonic obstruction, status post sigmoid colectomy with end colostomy on June 12, [address] Joyner Bipolar disorder Anxiety Gastroesophageal reflux disease Chronic ongoing nicotine dependence Hard of hearing Degenerative joint disease Prolonged air leak, unexpected but not uncommon after lung surgery Plan: We will keep her right pleural chest tube in place to low continuous wall suction, increase suction to -30 cm H2O. Continue to monitor for airleak resolution and subcutaneous emphysema resolution. Continue to monitor daily chest x-rays. Encourage use of incentive spirometry 10 times every hour while awake. Discussed the importance of risk modification including smoking cessation upon discharge will be given the number to [phone]. Continue to monitor final pathology results. Results remain pending. Increase activity as tolerated. Physical and Occupational Therapy have been following. Wean oxygen as tolerated. Bronchodilator management per pulmonary recommendations. Medical management other comorbidities per primary care service. Pain management per current as needed orders. Continue Robaxin 500 mg p.o. 4 times daily as needed for additional pain control More recommendations to follow based on patient's clinical course. Time with Patient: Greater than 30
--- NOTE | 2023-09-11 11:45 | P.PN ---
Subjective Progress Note Date: 09/11/23 Principal diagnosis: extensive subcutaneous emphysema involving head and neck bilateral end-stage COPDwith baseline FEV1 of 0.84 Right-sided middle lobe nodule preliminary biopsy came back positive for non- small cell cancer generalized anxiety disorder Degenerative joint disease 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 joints Extensive history of smoking and nicotine use has been still smoking a quarter pack a day Right-sided small pneumothorax, pneumomediastinum, pneumopericardium, extensive subcutaneous emphysema with right-sided chest tube air leaking 09/11/2023, patient seen eval examined during rounds labs reviewed medications reviewed care plan discussed with the patient, patient sitting upright in his chair extensive facial swelling. Patient continued to have chest pain at the tube insertion site, patient has been on pain medicine, on 3 L oxygen saturation is a 94%, patient continued do deep breathing exercises incentive spirometry, hemodynamic status stable, patient is on suction 20 cm water with minimal output. Ration noted to have extensive swelling of lhead and neck and trunksubcu emphysema is present, patient is short of breath with fine end expiratory wheezing, her chest x-ray continued to show stable chest tube with extensive bilateral emphysema 09/09/2023, patient seen eval examined during rounds labs reviewed medications and care plan discussed, still have ongoing puffiness and subcu emphysema is present, get short of breath on activity and exertion, denies any chest pain diffuse aches and pain at the operative site however is present has been on pain medicines. Patient continued to have right-sided chest tube with a air leak.x right-sided chest tube imaging towards the apex, extensive bilateral subcu emphysema more so on the right side compared left side right-sided pneumothorax cannot be excluded. 63-year-old female with extensive history of smoking and nicotine use found to have responded on routine x-ray and CAT scan, PET scan came back strongly positive for right middle lobe neoplastic changespatient admitted for surgical resection. Patient has a long-standing history of smoking 2 packs a day for abo ut 40 years, patient lately that down and stop smoking however is still intermittently smoking quarter to half pack per day. She had a history of the low-dose computed tomography scan 2016 negative for pulmonary nodules. However back in May right upper lobe infiltrate and a nodule and right middle lobe seen PET scan performed on July 16 came back strongly positive consistent with neoplasm. patient underwent right middle lobe nodule resection with 1 cm margins preliminary came back positive for non-small cell cancer Objective - Vital Signs Vital signs: Vital Signs Temp 98 F 09/11/23 08:00 Pulse 100 09/11/23 09:08 Resp 17 09/11/23 08:00 BP 162/80 09/11/23 08:00 Pulse Ox 94 L 09/11/23 08:00 FiO2 Intake & Output 09/10/23 09/11/23 09/11/23 18:59 06:59 18:59 Intake Total 360 118 Output Total 1410 2013 500 Balance -[id number] Intake: Oral 360 118 Output: Chest Tube Drainage 10 14 Chest Tube Right 10 14 Gastric Drainage 0 Urine 1350 2000 500 Stool 50 Urine/Stool Mix 0 Emesis 0 Oral Regurgitation 0 Other 0 Other: Voiding Method Toilet Toilet Toilet # Voids 0 2 # Bowel Movements 0 1 - Exam - Constitutional General appearance: average body habitus, disheveled, extensive swelling of the face neck and trunk due to subcutaneous emphysema seen and noted - EENT Eyes: poor dentition Ears: bilateral: normal - Neck Carotids: bilateral: upstroke normal Thyroid: bilateral: normal size - Respiratory on 3 L nasal cannula oxygen saturation 97 to, right-sided chest tube with air leak Respiratory: bilateral: diminished, expiratory wheezing on fours expiration - Cardiovascular Rhythm: regular Heart sounds: normal: S1, S2 - Gastrointestinal General gastrointestinal: normal bowel sounds - Neurologic Neurologic: CNII-XII intact - Musculoskeletal Musculoskeletal: gait normal, generalized weakness, strength equal bilaterally - Psychiatric Psychiatric: A&O x's 3, appropriate affect, intact judgment & insight - Labs CBC & Chem 7: 09/10/23 06:13 09/10/23 06:09 Assessment and Plan Assessment: extensive subcutaneous emphysema involving head and neck bilateral end-stage COPDwith baseline FEV1 of 0.84 Right-sided middle lobe nodule preliminary biopsy came back positive for non- small cell cancer generalized anxiety disorder Degenerative joint disease 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 joints Extensive history of smoking and nicotine use has been still smoking a quarter pack a day Right-sided small pneumothorax, pneumomediastinum, pneumopericardium, extensive subcutaneous emphysema with right-sided chest tube air leaking Plan: oncology evaluation, Dr. Betancourt has been consulted Follow-up on final path report, still pending as of today Keep right-sided chest tube on suction Increase deep breathing exercises incentive spirometry, increase activity as tolerated Continue oxygen titrated down as tolerated currently on 3 L we'll maintain that Continue bronchodilators Taper and DC prednisone Time with Patient: Greater than 30
--- NOTE | 2023-09-12 01:57 | PN ---
PROGRESS NOTE SUBJECTIVE: Post lobectomy, still trying to get off the chest tube, excessive subcutaneous emphysema. Anxiety, COPD, nicotine addiction, and non-small cell cancer. Waiting for final pathology. OBJECTIVE: LUNGS: Transmitted upper sounds. GI: Soft. HEMATOLOGY: Negative for Homans. ASSESSMENT: Subcutaneous emphysema, end-stage COPD, oxygen dependent at home, right middle lobe nodule status post lobectomy, anxiety, COPD, nicotine addiction, osteoarthritis, metastatic small pneumothorax, pneumomediastinum, pneumopericardium. Waiting for Dr. Amaro, consultation reviewed. Follow up outpatient. Waiting on final path report. She is on chest tube suction. Continue spirometry. Breathing treatments. Continue with oxygen. PROGNOSIS: Guarded. Possibly go home when chest tube is removed. MMODL / IJN: [id number] /
--- NOTE | 2023-09-12 08:24 | XR ---
EXAMINATION TYPE: XR chest 1V portable DATE OF EXAM: 09/12/2023 7:14 AM CLINICAL INDICATION:Female, 63 years old with history of Status post right middle lobe wedge resectio n; [facility] COMPARISON: Chest radiograph from one day prior. TECHNIQUE: XR chest 1V portable Frontal view of the chest. FINDINGS: Lungs/Pleura: There is no evidence of pleural effusion, focal consolidation, or pneumothorax. Pulmonary vascularity: Unremarkable. Heart/mediastinum: Cardiomediastinal silhouette is unremarkable. Musculoskeletal: No acute osseous pathology. Other findings: Subcutaneous emphysema scattered throughout the visualized thorax. Lines/Tubes: Right thoracotomy tube is present without evidence of pneumothorax. IMPRESSION: Right thoracotomy tube with extensive subcutaneous emphysema. No appreciable pneumothorax however isabella luation limited with subcutaneous emphysema.
--- NOTE | 2023-09-12 09:07 | P.PN ---
Subjective Progress Note Date: 09/12/23 Principal diagnosis: Right middle lobe mass consistent with pulmonary carcinoma, with frozen section positive for non-small cell carcinoma. Past medical history significant for ch ronic obstructive pulmonary disease, chronic bronchitis, chronic back pain, bipolar disorder, anxiety, gastroesophageal reflux disease, chronic ongoing nicotine dependence, hard of hearing and degenerative joint disease. POD #5 Robotic assisted thoracoscopic right middle lobe wedge resection with m ediastinal lymph node dissection and on table diagnosis showing non-small cell carcinoma Prolonged airleak, unexpected but not uncommon after lung surgery The patient was seen and examined in follow-up today September 12, 2023 at her bedside on the third floor cardiac stepdown unit. She is currently sitting up to the bedside chair, is awake, alert, oriented x 3 and is in no acute apparent distress. The patient denies any complaints of shortness of breath or pain at this time. She reports that her subcutaneous emphysema feels much improved today than yesterday. She still has some extensive subcutaneous emphysema to her chest, back, face, and bilateral upper arms. Oxygen saturations are 97% on 2 L nasal cannula and she is achieving 1000 mL on her incentive spirometry with encouragement. Surgical pathology results remain pending. Remote telemetry is showing normal sinus rhythm heart rate 94 bpm. The patient reports she has been up ambulating in her room with minimal assistance and tolerating well. Right pleural chest tube remains in place to low continuous wall suction -20 cm H2O. No air leak is present. Draining thin serosanguineous drainage with 80 mL of thin serosanguineous drainage in the last 24 hours. Chest x-ray results reviewed. Objective - Vital Signs Vital signs: Vital Signs Temp 98.3 F 09/11/23 20:30 Pulse 99 09/12/23 08:52 Resp 18 09/12/23 04:00 BP 129/70 09/12/23 04:00 Pulse Ox 95 09/12/23 08:52 FiO2 Intake & Output 09/11/23 09/12/23 09/12/23 18:59 06:59 18:59 Intake Total 1076 618 Output Total 520 50 Balance 556 -50 618 Weight 60.7 kg Intake: Oral 1076 618 Output: Chest Tube Drainage 20 50 Chest Tube Right 20 50 Urine 500 Other: Voiding Method Toilet Toilet # Voids 1 # Bowel Movements 1 - Exam CONSTITUTIONAL: Sitting up to the bedside chair on the third floor cardiac stepdown unit. Appears comfortable, cooperative, no acute distress RESPIRATORY: Lungs sounds diminished bilaterally, with some faint expiratory wheezes. Respirations symmetrical, nonlabored. Currently on 2 L nasal cannula with oxygen saturation 97%. Strong cough. Achieving 1000 mL on her incentive spirometry with encouragement. CARDIOVASCULAR: S1, S2 present. Regular rate and rhythm, normal sinus rhythm on telemetry, heart rate 94 bpm. Palpable peripheral pulses bilaterally. No edema present. No calf pain or tenderness noted. SCDs present. GASTROINTESTINAL: Abdomen soft, nontender, nondistended. Active bowel sounds present 4 quadrants. Tolerating diet. Left lower abdominal quadrant colostomy with small amount of formed stool. GENITOURINARY: Continues to void clear yellow urine. INTEGUMENTARY: Skin is warm and dry with evidence of good perfusion. Right thoracic incisions well approximated and covered with dry intact dressing. NEUROLOGIC: Cranial nerves II through XII intact. MUSKULOSKELETAL: Able to move all extremities, strength equal bilaterally, gait normal. PSYCHIATRIC: Alert and oriented to person place and time, appropriate affect, intact judgment and insight. INVASIVE LINES AND TUBES: Right pleural chest tube present and connected to low continuous wall suction -20 cm H2O, no airleak present. Draining thin serosanguineous drainage with 10 mL output in the last 8 hours and 80 mL output in the last 24 hours. - Allied health notes Allied health notes reviewed: nursing - Labs CBC & Chem 7: 09/10/23 06:13 09/10/23 06:09 - Imaging and Cardiology Chest x-ray: report reviewed, image reviewed Assessment and Plan Assessment: Right middle lobe mass consistent with pulmonary carcinoma, status post robotic assisted thoracoscopic right middle lobe wedge resection with mediastinal lymph node dissection and on table diagnosis Chronic obstructive pulmonary disease with a preoperative FEV1 0.84 Chronic bronchitis Chronic back pain History of diverticulitis causing colonic obstruction, status post sigmoid colectomy with end colostomy on June 12, [address] Joyner Bipolar disorder Anxiety Gastroesophageal reflux disease Chronic ongoing nicotine dependence Hard of hearing Degenerative joint disease Prolonged air leak, unexpected but not uncommon after lung surgery Plan: We will keep her right pleural chest tube in place, chest tube placed to waterseal this morning. Continue to monitor for resolution of subcutaneous emphysema resolution. Continue to monitor daily chest x-rays. Encourage use of incentive spirometry 10 times every hour while awake. Discussed the importance of risk modification including smoking cessation upon discharge will be given the number to [id number]. Continue to monitor final pathology results. Results remain pending. Increase activity as tolerated. Physical and Occupational Therapy have been following. Wean oxygen as tolerated. Bronchodilator management per pulmonary recommend ations. Medical management other comorbidities per primary care service. Pain management per current as needed orders. Continue Robaxin 500 mg p.o. 4 times daily as needed for additional pain control Prednisone was discontinued yesterday. Discharge planning is in place. More recommendations to follow based on patient's clinical course. Time with Patient: Greater than 30
--- NOTE | 2023-09-12 10:10 | XR ---
EXAMINATION TYPE: XR chest 1V portable DATE OF EXAM: 09/12/2023 10:06 AM CLINICAL INDICATION:Female, 63 years old with history of Chest tube placed to backus hospital; [facility] COMPARISON: Chest radiographs from TECHNIQUE: XR chest 1V portable Frontal view of the chest. FINDINGS: Lungs/Pleura: There is no evidence of pleural effusion, focal consolidation, or pneumothorax. Pulmonary vascularity: Unremarkable. Heart/mediastinum: Cardiomediastinal silhouette is unremarkable. Musculoskeletal: No acute osseous pathology. Other findings: Subcutaneous emphysema scattered throughout the visualized thorax. Lines/Tubes: Right thoracotomy tube is present without evidence of pneumothorax. IMPRESSION: No change from prior, Right thoracotomy tube with extensive subcutaneous emphysema. No appreciable pn eumothorax however evaluation limited with subcutaneous emphysema.
--- NOTE | 2023-09-12 14:27 | P.PN ---
Subjective Progress Note Date: 09/12/23 Principal diagnosis: extensive subcutaneous emphysema involving head and neck bilateral end-stage COPDwith baseline FEV1 of 0.84 Right-sided middle lobe nodule preliminary biopsy came back positive for non- small cell cancer generalized anxiety disorder Degenerative joint disease 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 joints Extensive history of smoking and nicotine use has been still smoking a quarter pack a day Right-sided small pneumothorax, pneumomediastinum, pneumopericardium, extensive subcutaneous emphysema with right-sided chest tube air leaking September 12, 2023, patient seen eval examined during rounds labs reviewed medications and care plan discussed, care plan discussed with the cardiothoracic surgery as well. Chest tube is off of the suction now, on waterseal, no airleak has been noted, increased swelling in the face as well as the trunk slightly improved subcu emphysema improved but is still present patient remains on bronchodilators DVT prophylaxis with subcu heparin off of prednisone now. Chest x-ray from today reviewed extensive bilateral emphysema however no pneumothorax seen 09/11/2023, patient seen eval examined during rounds labs reviewed medications reviewed care plan discussed with the patient, patient sitting upright in his chair extensive facial swelling. Patient continued to have chest pain at the tube insertion site, patient has been on pain medicine, on 3 L oxygen saturation is a 94%, patient continued do deep breathing exercises incentive spirometry, hemodynamic status stable, patient is on suction 20 cm water with minimal output. Ration noted to have extensive swelling of lhead and neck and trunksubcu emphysema is present, patient is short of breath with fine end expiratory wheezing, her chest x-ray continued to show stable chest tube with extensive bilateral emphysema 09/09/2023, patient seen eval examined during rounds labs reviewed medications and care plan discussed, still have ongoing puffiness and subcu emphysema is present, get short of breath on activity and exertion, denies any chest pain diffuse aches and pain at the operative site however is present has been on pain medicines. Patient continued to have right-sided chest tube with a air leak.x right-sided chest tube imaging towards the apex, extensive bilateral subcu emphysema more so on the right side compared left side right-sided pneumothorax cannot be excluded. 63-year-old female with extensive history of smoking and nicotine use found to have responded on routine x-ray and CAT scan, PET scan came back strongly positive for right middle lobe neoplastic changespatient admitted for surgical resection. Patient has a long-standing history of smoking 2 packs a day for about 40 years, patient lately that down and stop smoking however is still intermittently smoking quarter to half pack per day. She had a history of the low-dose computed tomography scan 2017 negative for pulmonary nodules. However back in May right upper lobe infiltrate and a nodule and right middle lobe seen PET scan performed on July 16 came back strongly positive consistent with neoplasm. patient underwent right middle lobe nodule resection with 1 cm margins preliminary came back positive for non-small cell cancer Objective - Vital Signs Vital signs: Vital Signs Temp 98.2 F 09/12/23 07:50 Pulse 97 09/12/23 12:10 Resp 18 09/12/23 11:50 BP 102/66 09/12/23 11:50 Pulse Ox 93 L 09/12/23 11:50 FiO2 Intake & Output 09/11/23 09/12/23 09/12/23 18:59 06:59 18:59 Intake Total 1076 1718 Output Total 520 50 500 Balance 556 -50 1218 Weight 60.7 kg Intake: Oral 1076 1718 Output: Chest Tube Drainage 20 50 Chest Tube Right 20 50 Urine 500 500 Other: Voiding Method Toilet Toilet Toilet # Voids 1 # Bowel Movements 1 - Exam - Constitutional General appearance: average body habitus, disheveled, extensive swelling of the face neck and trunk due to subcutaneous emphysema seen and noted - EENT Eyes: poor dentition Ears: bilateral: normal - Neck Carotids: bilateral: upstroke normal Thyroid: bilateral: normal size - Respiratory on 3 L nasal cannula oxygen saturation 97 to, right-sided chest tube with No air leak Respiratory: bilateral: diminished, expiratory wheezing on fours expiration - Cardiovascular Rhythm: regular Heart sounds: normal: S1, S2 - Gastrointestinal General gastrointestinal: normal bowel sounds - Neurologic Neurologic: CNII-XII intact - Musculoskeletal Musculoskeletal: gait normal, generalized weakness, strength equal bilaterally - Psychiatric Psychiatric: A&O x's 3, appropriate affect, intact judgment & insight - Labs CBC & Chem 7: 09/10/23 06:13 09/10/23 06:09 Assessment and Plan Assessment: extensive subcutaneous emphysema involving head and neck bilateral Truncal area as well end-stage COPD with baseline FEV1 of 0.84 Right-sided middle lobe nodule preliminary biopsy came back positive for non- small cell cancer Final path report is 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 Betancourt has been consulted Follow-up on final path report, still pending as of today Keep right-sided chest tube on Waterseal Increase deep breathing exercises incentive spirometry, increase activity as tolerated Continue oxygen titrated down as tolerated currently on 3 L we'll maintain that Continue bronchodilators Taper and DC prednisone Time with Patient: Greater than 30
[2023-09-12] MEDS: KETOROLAC 15 MG/ML 1 ML VIAL IVP SCH (18:04)
--- NOTE | 2023-09-13 00:42 | PN ---
PROGRESS NOTE SUBJECTIVE: Chest tube in, her facial swelling is decreased. She is breathing fairly well. Waiting for get chest tube removed. Her pathology shows adenocarcinoma resected with lymph nodes positive. OBJECTIVE: CARDIOVASCULAR: S1, S2. LUNGS: Scattered rhonchi and wheeze. HEMATOLOGIC: Negative for Homans. GI: Soft. Status post lung resection middle lobe due to adenocarcinoma of the lungs. Remove chest tube as tolerated and possible discharge home in the next 2 days. Prognosis guarded. MMODL / IJN: [id number] /
--- NOTE | 2023-09-13 08:39 | XR ---
EXAMINATION TYPE: XR chest 2V DATE OF EXAM: 09/13/2023 6:26 AM CLINICAL INDICATION:Female, 63 years old with history of post op right middle lobe wedge resection; [facility] COMPARISON: Chest radiograph from one day prior. TECHNIQUE: XR chest 2V Frontal view of the chest. FINDINGS: Lungs/Pleura: There is no evidence of pleural effusion, focal consolidation, or pneumothorax. Pulmonary vascularity: Unremarkable. Heart/mediastinum: Cardiomediastinal silhouette is unremarkable. Musculoskeletal: No acute osseous pathology. Other findings: Subcutaneous emphysema scattered throughout the visualized thorax. Lines/Tubes: Right thoracotomy tube is present without evidence of pneumothorax. IMPRESSION: No change from prior, Right thoracotomy tube with extensive subcutaneous emphysema. No appreciable pn eumothorax however evaluation limited with subcutaneous emphysema.
--- NOTE | 2023-09-13 08:44 | P.PN ---
Subjective Progress Note Date: 09/13/23 Principal diagnosis: Right middle lobe mass consistent with pulmonary carcinoma, with frozen section positive for non-small cell carcinoma. Past medical history significant for ch ronic obstructive pulmonary disease, chronic bronchitis, chronic back pain, bipolar disorder, anxiety, gastroesophageal reflux disease, chronic ongoing nicotine dependence, hard of hearing and degenerative joint disease. POD #6 Robotic assisted thoracoscopic right middle lobe wedge resection with m ediastinal lymph node dissection and on table diagnosis showing non-small cell carcinoma Prolonged airleak, unexpected but not uncommon after lung surgery The patient was seen and examined in follow-up today September 13, 2023 at her bedside on the third floor cardiac stepdown unit. She is currently sitting up to the bedside chair, is awake, alert, oriented x 3 and is in no acute apparent distress. The patient denies any complaints of shortness of breath and is complaining of some surgical type pain to her right chest tube insertion site. Currently rating her pain 5-6 out of 10 on the pain scale. Oxygen saturations are 92% on room air and she is achieving 1000 mL on her incentive spirometry with encouragement. Right pleural chest tube remains in place and is currently to waterseal, no air leak is present. Draining thin serosanguineous drainage with 50 mL of output in the last 24 hours. She has been up ambulating in the hallway independently and tolerating well. Remote telemetry is showing sinus tachycardia heart rate 107 bpm. She remains with some extensive subcutaneous emphysema to her chest, back, bilateral upper extremities, neck and face. She remains hemodynamically stable and is currently on no inotropic or pressor support. She is tolerating her meals well. Pathology results show invasive moderately to poorly differentiated pulmonary adenocarcinoma, invading the v isceral pleura, margins negative for malignancy. It also showed lymph nodes negative for metastasis. Chest x-ray results were reviewed. Objective - Vital Signs Vital signs: Vital Signs Temp 97.8 F 09/13/23 03:09 Pulse 108 H 09/13/23 03:09 Resp 17 09/13/23 03:09 BP 134/65 09/13/23 03:09 Pulse Ox 92 L 09/13/23 03:09 FiO2 Intake & Output 09/12/23 09/13/23 09/13/23 18:59 06:59 18:59 Intake Total 2258 200 Output Total 540 0 Balance 1718 0 200 Weight 62.3 kg Intake: Oral 2258 200 Output: Chest Tube Drainage 40 0 Chest Tube Right 40 0 Urine 500 0 Other: Voiding Method Toilet Toilet - Exam CONSTITUTIONAL: Sitting up to the bedside chair on the third floor cardiac stepdown unit. Appears comfortable, cooperative, no acute distress RESPIRATORY: Lungs sounds diminished bilaterally, with some faint expiratory wheezes. Respirations symmetrical, nonlabored. Currently on room air with oxygen saturation 92%. Strong cough. Achieving 1000 mL on her incentive spirometry with encouragement. CARDIOVASCULAR: S1, S2 present. Regular rate and rhythm, sinus tachycardia on telemetry, heart rate 107 bpm. Palpable peripheral pulses bilaterally. No edema present. No calf pain or tenderness noted. SCDs present. GASTROINTESTINAL: Abdomen soft, nontender, nondistended. Active bowel sounds present 4 quadrants. Tolerating diet. Left lower abdominal quadrant colostomy with small amount of formed stool. GENITOURINARY: Continues to void clear yellow urine. INTEGUMENTARY: Skin is warm and dry with evidence of good perfusion. Right thoracic incisions well approximated and covered with dry intact dressing. Extensive subcutaneous emphysema to her chest, back, bilateral upper extremities, neck and face. NEUROLOGIC: Cranial nerves II through XII intact. MUSKULOSKELETAL: Able to move all extremities, strength equal bilaterally, gait normal. PSYCHIATRIC: Alert and oriented to person place and time, appropriate affect, intact judgment and insight. INVASIVE LINES AND TUBES: Right pleural chest tube present and is to waterseal, no airleak present. Draining thin serosanguineous drainage with 50 mL output in the last 24 hours. - Allied health notes Allied health notes reviewed: nursing - Labs CBC & Chem 7: 09/10/23 06:13 09/10/23 06:09 - Imaging and Cardiology Chest x-ray: report reviewed, image reviewed Assessment and Plan Assessment: Right middle lobe mass consistent with pulmonary carcinoma, status post robotic assisted thoracoscopic right middle lobe wedge resection with mediastinal lymph node dissection and on table diagnosis, pathology results show invasive moderately to poorly differentiated pulmonary adenocarcinoma, invading the visceral pleura, margins negative for malignancy, it also showed lymph nodes negative for metastasis Chronic obstructive pulmonary disease with a preoperative FEV1 0.84 Chronic bronchitis Chronic back pain History of diverticulitis causing colonic obstruction, status post sigmoid c olectomy with end colostomy on June 12, [address] Joyner Bipolar disorder Anxiety Gastroesophageal reflux disease Chronic ongoing nicotine dependence Hard of hearing Degenerative joint disease Prolonged air leak, unexpected but not uncommon after lung surgery Plan: We will keep her right pleural chest tube in place, keep chest tube to waterseal. Continue to monitor for resolution of subcutaneous emphysema resolution. Continue to monitor daily chest x-rays. Encourage use of incentive spirometry 10 times every hour while awake. Discussed and reinforced the importance of risk modification including smoking cessation upon discharge will be given the number to [phone]. Pathology results have been discussed with patient. Increase activity as tolerated. Physical and Occupational Therapy have been following. Wean oxygen as tolerated. Bronchodilator management per pulmonary recommendations. Medical management other comorbidities per primary care service. Pain management per current as needed orders. Continue Robaxin 500 mg p.o. 4 times daily as needed for additional pain control Discharge planning is in place. More recommendations to follow based on patient's clinical course. Time with Patient: Greater than 30
[2023-09-13 12:06] VITALS: BMI 21.4
--- NOTE | 2023-09-13 13:39 | PN ---
PROGRESS NOTE SUBJECTIVE: Waiting on discharge pending chest tube removal and clearance of her leak from her chest tube. Breathing is better. Medications were reviewed for adenocarcinoma. Margins are negative for malignancy. OBJECTIVE: VITAL SIGNS: Blood pressure 134/65, temp 97.8, pulse 108, respiratory rate 16 to 18, and O2 is 92. CARDIOVASCULAR: S1, S2. LUNGS: Transmitted upper sounds. GI: Soft. HEMATOLOGY: Negative for Homans. Will keep her right pleural chest tube in place apparently to water seal. Monitor for resolutions of subcu emphysema. Save the chest x-rays, we will first find some cardiac surgeon for discharge. MMODL / IJN: [id number] /
--- NOTE | 2023-09-13 19:23 | P.PN ---
Subjective Progress Note Date: 09/13/23 Principal diagnosis: Right middle lobe adenocarcinoma of the lung, status post right middle lobectomy In follow-up today patient is sitting in the chair. She has chest tube inser thompson, not complaining of significant pain but, notes it is uncomfortable. She is tolerating oral intake, denies any fevers, nausea or vomiting, unusual shortness of breath or chest pain, no hemoptysis. Objective - Vital Signs Vital signs: Vital Signs Temp 98.0 F 09/13/23 15:27 Pulse 80 09/13/23 16:20 Resp 20 09/13/23 15:27 BP 134/94 09/13/23 15:27 Pulse Ox 92 L 09/13/23 15:27 FiO2 Intake & Output 09/13/23 09/13/23 09/14/23 06:59 18:59 06:59 Intake Total 620 Output Total 0 1010 Balance 0 -390 Weight 62.3 kg 62.3 kg Intake: Oral 620 Output: Chest Tube Drainage 0 60 Chest Tube Right 0 60 Urine 0 950 Other: Voiding Method Toilet Toilet - Constitutional General appearance: Present: average body habitus, cooperative, no acute distress - EENT Eyes: Present: anicteric sclerae, EOMI ENT: Present: hearing grossly normal - Respiratory Details: Respirations unlabored at rest, patient is able to speak without shortness of breath - Musculoskeletal Musculoskeletal: Present: strength equal bilaterally - Psychiatric Psychiatric: Present: A&O x's 3, appropriate affect, intact judgment & insight - Labs CBC & Chem 7: 09/10/23 06:13 09/10/23 06:09 Assessment and Plan (1) Adenocarcinoma of lung, stage 1 Current Visit: Yes Status: Acute Priority: Medium Code(s): C34.90 - MALIGNANT NEOPLASM OF UNSP PART OF UNSP BRONCHUS OR LUNG SNOMED Code(s): 368616936 Plan: Non-small cell lung adenocarcinoma, Stage IB -Pathology reviewed with the patient and her at the bedside. The right middle lobectomy revealed an invasive, a moderately to poorly differentiated pulmonary adenocarcinoma invading the visceral pleura. Negative margins. R9, R8, level 7, R11, R10 and R4 lymph nodes, all negative for metastasis. Tumor in the greatest dimension 1.3 cm. Pathological stage pT2a, pN0, stage Ib. -Reviewed with patient, as well as PCP, that in the past, patients would go on surveillance, which consisted of imaging about every 3 months for the first year. The first year has the highest risk of recurrence of malignancy. There is now option to send the tumor off for somatic testing and next generation sequencing. If the tumor is found to have an actionable mutation, some of the targeted agents are approved in the adjuvant setting. Explained that this can reduce the risk of recurrence. If patient does not have a mutation, surveillance stands as the standard of care. There are also options for immunotherapy in the adjuvant setting in some cases. Patient is agreeable to send her tumor off for testing. She is also agreeable to follow-up with the Oncologist to discuss what treatment options are available, how much this reduces her risk of recurrent disease, and also to discuss potential side effects to see if treatment is right for her. All of the patient and her 's questions were answered to the best of my ability. -Patient is not be a candidate for any type of treatment until she is recovered adequately from surgery. Appointment for follow-up with Oncologist will be made for 6 weeks from now. -MRI of the brain will be ordered to complete staging once patient's chest tube has been removed. Time with Patient: Greater than 30
--- NOTE | 2023-09-14 08:26 | P.PN ---
Subjective Progress Note Date: 09/14/23 Principal diagnosis: Right middle lobe mass consistent with pulmonary carcinoma, with frozen section positive for non-small cell carcinoma, final pathology consistent with invasive moderately to poorly differentiated pulmonary adenocarcinoma. Previous medical history of chronic obstructive pulmonary disease, chronic bronchitis, chronic back pain, bipolar disorder, anxiety, gastroesophageal reflux disease, chronic ongoing nicotine dependence, hard of hearing and degenerative joint disease. POD #7 Robotic assisted thoracoscopic right middle lobe wedge resection with mediastinal lymph node dissection and on table diagnosis showing non-small cell carcinoma Prolonged airleak less than 5 days, unexpected but not uncommon after lung surgery The patient was seen and examined this morning sitting up in a recliner on the cardiac stepdown unit in no acute distress. States pain is mostly controlled on current medication regimen, denies shortness of breath. She has been ambulatory without difficulty. Her pleural chest tube has been clamped for 24 hours, when unclamped there is no airleak present. Our plan is for removal of chest tube today, repeat chest x-ray in the morning and likely discharge to home tomorrow. She remains in sinus rhythm, currently on room air with oxygen saturation in the low to mid 90s. Able to achieve 1000 mL on her incentive spirometry. Objective - Vital Signs Vital signs: Vital Signs Temp 97.6 F 09/14/23 07:45 Pulse 100 09/14/23 07:45 Resp 16 09/14/23 07:45 BP 118/70 09/14/23 07:45 Pulse Ox 94 L 09/14/23 07:45 FiO2 Intake & Output 09/13/23 09/14/23 09/14/23 18:59 06:59 18:59 Intake Total 620 Output Total 1010 0 Balance -390 0 Weight 62.3 kg 60.7 kg Intake: Oral 620 Output: Chest Tube Drainage 60 0 Chest Tube Right 60 0 Urine 950 0 Other: Voiding Method Toilet Toilet - Exam CONSTITUTIONAL: Appears comfortable, cooperative, no acute distress RESPIRATORY: Lungs sounds diminished bilaterally. Respirations even, nonlabored. Currently on room air with oxygen saturation 93%. Able to achieve 1000 mL on incentive spirometry. Strong cough. CARDIOVASCULAR: S1, S2 present. Regular rate and rhythm, sinus rhythm on telemetry. Palpable peripheral pulses bilaterally. No edema present. No calf pain or tenderness noted GASTROINTESTINAL: Abdomen soft, nontender, nondistended. Active bowel sounds present 4 quadrants. Tolerating diet. Positive bowel movement 09/10 GENITOURINARY: Continues to void clear, yellow urine INTEGUMENTARY: Skin is warm and dry NEUROLOGIC: Cranial nerves II through XII intact MUSKULOSKELETAL: Able to move all extremities, strength equal bilaterally, gait normal PSYCHIATRIC: Alert and oriented to person place and time, appropriate affect, intact judgment and insight INVASIVE LINES AND TUBES: Rihjt pleural chest tube present currently to [facility] although was clamped for 24 hours, no air leaks present - Allied health notes Allied health notes reviewed: nursing - Labs CBC & Chem 7: 09/10/23 06:13 09/10/23 06:09 - Imaging and Cardiology Chest x-ray: image reviewed Assessment and Plan Assessment: Right middle lobe mass, final pathology consistent with invasive moderately to poorly differentiated pulmonary adenocarcinoma, status post robotic assisted thoracoscopic right middle lobe wedge resection with mediastinal lymph node dissection History of chronic obstructive pulmonary disease Chronic bronchitis Chronic back pain Bipolar disorder/anxiety Gastroesophageal reflux disease Chronic ongoing nicotine dependence Hard of hearing Degenerative joint disease. Prolonged airleak less than 5 days, unexpected but not uncommon after lung surgery Plan: Will discontinue chest tube Repeat CXR in am, if stable will DC home Encourage use of incentive spirometry 10 times every hour while awake, bron chodilator per pulmonology Discussed and reinforced the importance of risk modification including smoking cessation upon discharge will be given the number to [phone]. Pathology results have been discussed with patient. Increase activity as tolerated Pain medicine per current medication regimen, will DC morphine after CT removed More recommendations to follow based on patient's clinical course.
--- NOTE | 2023-09-14 08:39 | XR ---
EXAMINATION TYPE: XR chest 2V DATE OF EXAM: 09/14/2023 6:26 AM CLINICAL INDICATION:Female, 63 years old with history of post wedge resection; [facility] COMPARISON: Chest radiograph from one day prior. TECHNIQUE: XR chest 2V Frontal view of the chest. FINDINGS: Lungs/Pleura: There is no evidence of pleural effusion, focal consolidation, or pneumothorax. Pulmonary vascularity: Unremarkable. Heart/mediastinum: Cardiomediastinal silhouette is unremarkable. Musculoskeletal: No acute osseous pathology. Other findings: Subcutaneous emphysema scattered throughout the visualized thorax. Lines/Tubes: Right thoracotomy tube is present without evidence of pneumothorax. IMPRESSION: No change from prior, Right thoracotomy tube with extensive subcutaneous emphysema. No appreciable pn eumothorax however evaluation limited with subcutaneous emphysema.
[2023-09-14 09:23] LABS: African American GFR (CKD) >90 (>60 ml/min/1.73 sqM); Anion Gap 9 mmol/L; Blood Urea Nitrogen 8 mg/dL (7-17); Calcium 9.6 mg/dL (8.4-10.2); Carbon Dioxide 23 mmol/L (22-30); Chloride 98 mmol/L (98-107); Glucose 143 mg/dL (74-99); Non-African American GFR(CKD) >90 (>60 ml/min/1.73 sqM); Sodium 130 mmol/L (137-145)
[2023-09-14 09:29] LABS: HCT 42.3 % (34.0-46.0); HGB 14.1 gm/dL (11.4-16.0); Hypochromasia Slight; MCH 33.7 pg (25.0-35.0); MCHC 33.3 g/dL (31.0-37.0); MCV 101.5 fL (80.0-100.0); Macrocytosis Slight; Mean Platelet Volume 8.2; Platelet Count 431 k/uL (150-450); RBC 4.17 m/uL (3.80-5.40); RDW 14.1 % (11.5-15.5); WBC 8.2 k/uL (3.8-10.6)
--- NOTE | 2023-09-14 09:41 | P.PN ---
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 Extensive history of smoking and nicotine use has been still smoking a quarter pack a day Right-sided small pneumothorax, pneumomediastinum, pneumopericardium, extensive subcutaneous emphysema with right-sided chest tube air leaking 09/14/2023, patient seen eval examined during the rounds labs reviewed medications and care plan discussed with the patient at length, Labs from today reviewed sodium 1:30 potassium 5.0, BUN/creatinine within normal range glucose 143, CBC within normal limit, patient is on room air now with oxygen saturation 96%.chest x-ray done earlier this morning extensivesubcutaneous emphysema, right-sided chest tube stable no pneumothorax is seen. Chest tube remains on water seal, was clamped for 24 hours no air leak is seen likely will be removed later on today. Deep breathing exercise incentive spirometry is in progress patient can do up to 1000 mL, oncology has evaluated the patient pathological stage is T2 1 N0, stage IB with negative nodes on biopsy tumor size 1.3 cm. Patient biopsy sent for mutation analysis for further recommendation pending for adjuvant chemotherapy as outpatient. September 12, 2023, patient seen eval examined during rounds labs reviewed medications and care plan discussed, care plan discussed with the cardiothoracic surgery as well. Chest tube is off of the suction now, on waterseal, no airleak has been noted, increased swelling in the face as well as the trunk slightly improved subcu emphysema improved but is still present patient remains on bronchodilators DVT prophylaxis with subcu heparin off of prednisone now. Chest x-ray from today reviewed extensive bilateral emphysema however no pneumothorax seen 09/11/2023, patient seen eval examined during rounds labs reviewed medications reviewed care plan discussed with the patient, patient sitting upright in his chair extensive facial swelling. Patient continued to have chest pain at the tu be insertion site, patient has been on pain medicine, on 3 L oxygen saturation is a 94%, patient continued do deep breathing exercises incentive spirometry, hemodynamic status stable, patient is on suction 20 cm water with minimal output. Ration noted to have extensive swelling of lhead and neck and trunksubcu emphysema is present, patient is short of breath with fine end expiratory wheezing, her chest x-ray continued to show stable chest tube with extensive bilateral emphysema 09/09/2023, patient seen eval examined during rounds labs reviewed medications and care plan discussed, still have ongoing puffiness and subcu emphysema is present, get short of breath on activity and exertion, denies any chest pain diffuse aches and pain at the operative site however is present has been on pain medicines. Patient continued to have right-sided chest tube with a air leak.x right-sided chest tube imaging towards the apex, extensive bilateral subcu emphysema more so on the right side compared left side right-sided pneumothorax cannot be excluded. 63-year-old female with extensive history of smoking and nicotine use found to have responded on routine x-ray and CAT scan, PET scan came back strongly positive for right middle lobe neoplastic changespatient admitted for surgical resection. Patient has a long-standing history of smoking 2 packs a day for about 40 years, patient lately that down and stop smoking however is still intermittently smoking quarter to half pack per day. She had a history of the low-dose computed tomography scan 2016 negative for pulmonary nodules. However back in May right upper lobe infiltrate and a nodule and right middle lobe seen PET scan performed on July 16 came back strongly positive consistent with neoplasm. patient underwent right middle lobe nodule resection with 1 cm margins preliminary came back positive for non-small cell cancer Objective - Vital Signs Vital signs: Vital Signs Temp 97.6 F 09/14/23 07:45 Pulse 60 09/14/23 08:46 Resp 16 09/14/23 07:45 BP 118/70 09/14/23 07:45 Pulse Ox 96 09/14/23 08:38 FiO2 Intake & Output 09/13/23 09/14/23 09/14/23 18:59 06:59 18:59 Intake Total 620 Output Total 1010 0 Balance -390 0 Weight 62.3 kg 60.7 kg Intake: Oral 620 Output: Chest Tube Drainage 60 0 Chest Tube Right 60 0 Urine 950 0 Other: Voiding Method Toilet Toilet - Exam - Constitutional General appearance: average body habitus, disheveled, extensive swelling of the face neck and trunk due to subcutaneous emphysema seen and noted, however improved compared to yesterday's exam - EENT Eyes: poor dentition Ears: bilateral: normal - Neck Carotids: bilateral: upstroke normal Thyroid: bilateral: normal size - Respiratory on 3 L nasal cannula oxygen saturation 97 to, right-sided chest tube with No air leak Respiratory: bilateral: diminished, expiratory wheezing on fours expiration - Cardiovascular Rhythm: regular Heart sounds: normal: S1, S2 - Gastrointestinal General gastrointestinal: normal bowel sounds - Neurologic Neurologic: CNII-XII intact - Musculoskeletal Musculoskeletal: gait normal, generalized weakness, strength equal bilaterally - Psychiatric Psychiatric: A&O x's 3, appropriate affect, intact judgment & insight - Labs CBC & Chem 7: 09/14/23 09:07 09/14/23 09:07 Labs: Abnormal Lab Results - Last 24 Hours (Table) 09/14/23 09/14/23 Range/Units 09:07 09:07 MCV 101.5 H (80.0-100.0) fL Sodium 130 L (137-145) mmol/L Creatinine 0.45 L (0.52-1.04) mg/dL Glucose 143 H (74-99) mg/dL Assessment and Plan Assessment: poorly differentiated adenocarcinoma stage of right lung off 1.3 cm size stage T2 a, N0 M0, patient being evaluated for adjuvant chemotherapy as outpatient, in the meantime surveillance for recurrence to be performed with serial computed tomography scan as outpatient extensive subcutaneous emphysema involving head and neck bilateral Truncal area as well, progressively getting better end-stage COPD with baseline FEV1 of 0.84, off of his steroids on bronchodilator Right-sided middle lobe nodule status post resection generalized anxiety disorder Degenerative joint disease 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
[2023-09-15 04:08] VITALS: TEMP 98.1
--- NOTE | 2023-09-15 08:24 | XR ---
EXAMINATION TYPE: XR chest 2V DATE OF EXAM: 09/15/2023 6:20 AM CLINICAL INDICATION:Female, 63 years old with history of post chest tube removal; [facility] COMPARISON: Chest radiographs from 09/14/2023 TECHNIQUE: XR chest 2V Frontal view of the chest. FINDINGS: Lungs/Pleura: There is no evidence of pleural effusion, focal consolidation, or pneumothorax. Pulmonary vascularity: Unremarkable. Heart/mediastinum: Cardiomediastinal silhouette is unremarkable. Musculoskeletal: No acute osseous pathology. Other findings: Subcutaneous emphysema scattered throughout the visualized thorax. Lines/Tubes: Has been removed. IMPRESSION: 1. Removal of right thoracotomy tube. No appreciable pneumothorax. 2. Extensive subcutaneous emphysema.
--- NOTE | 2023-09-15 09:17 | P.DS ---
Providers Date of admission: 09/07/23 05:37 Expected date of discharge: 09/15/23 Attending physician: Jules Danielle Consults: 09/07/23 11:11 Consult Physician Routine Consulting Provider: Juan Menendez Consult Reason/Comments: post wedge resection;known to you Do you want consulting provider notified?: Yes Consult Physician Routine Consulting Provider: Clemente Gongora Consult Reason/Comments: known to you Do you want consulting provider notified?: Yes 09/08/23 15:17 Consult Physician Routine Consulting Provider: Dane Betancourt Consult Reason/Comments: Lung CA Do you want consulting provider notified?: Yes Primary care physician: [facility] Course: FINAL DIAGNOSIS: Right middle lobe mass, final pathology consistent with 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 Prolonged airleak less than 5 days, unexpected but not uncommon after lung surgery PRINCIPAL PROCEDURE: Robotic assisted thoracoscopic right middle lobe wedge resection with mediastinal lymph node dissection and on table diagnosis showing non-small cell carcinoma HISTORY OF PRESENT ILLNESS: This is a 63-year-old female who follows outpatient with Dr. Clemente Gongora for primary care and Dr. Menendez for pulmonology. She has a longstanding history of tobacco dependence, recently she has cut down. She had a lung screening CT scan performed in 2016 which did not show any pulmonary nodules. She was recently hospitalized in May 2023 with diverticulitis and underwent a Lamont procedure. At that time a CT scan of the chest showed infiltrate in the right upper lobe as well as a nodule in the right middle lobe. Subsequent workup included a PET scan performed July 17, 2023 demonstrating intense uptake in the nodule in the right upper lobe consistent with carcinoma. When comparing her current CT of the chest with the one from 2017 there was a small area of groundglass in the region where the nodule is now leading to high suspicion that the nodule was carcinoma. There was some very mild PET uptake in the right upper lobe in the area of the infiltrate as well as very mild PET uptake in the right fifth and left third ribs anteriorly mostly consistent with costochondritis. She has significant arthritic symptomatology. She was asymptomatic from a pulmonary standpoint although she did have some limited pulmonary function and does get short of breath climbing stairs or doing physical activity. The patient was referred to Dr. Danielle from cardiothoracic surgery who reviewed all of her scans in detail. She was recommended to undergo wedge resection with mediastinal lymph node dissection. The usual perioperative course was discussed in detail with the patient and her family, all risks and benefits were explained, all questions were answered, and consent was obtained to proceed with surgery. The patient was scheduled for surgery at the earliest possible date after obtaining a bone scan to confirm that the rib nodules were negative. HOSPITAL COURSE: The patient was brought to the hospital on 09/07/23, taken to the preoperative area, prepared in the usual fashion, and subsequently taken to the operating room where Dr. Danielle performed right middle lobe wedge resection with mediastinal lymph node dissection. Upon completion of surgery the patient was extubated and taken to the recovery room for further monitoring. She was eventually admitted to 3 S. cardiac stepdown unit. She continued to have an air leak from her chest tube for a few days, once no airleak was present her chest tube was placed to waterseal. She did develop significant subcutaneous emphysema which is slowly resolving. Her chest tube was clamped for 24 hours prior to removal, follow-up chest x-ray revealed no pneumothorax. Her pathology results finalized and she was seen by oncology with plans for treatment discussions 6 weeks down the line. Her oxygen was titrated down, she continued to work with physical and occupational therapy, she was tolerating oral diet, her pain was mostly controlled although she does have some element of chronic pain, and she was ready to be discharged to home on postoperative day #8. She received written and verbal instruction regarding her medications, activity restrictions, signs and symptoms requiring physician notification, and follow-up appointments. Patient Condition at Discharge: Stable Plan - Discharge Summary Discharge Rx Participant: No New Discharge Prescriptions: New HYDROcodone/APAP 7.5-325MG [[place] 7.5-325] 1 each PO Q4HR PRN #30 tab PRN Reason: Pain Acetaminophen Tab [Tylenol] 650 mg PO Q4HR PRN tab PRN Reason: Mild To Moderate Pain (1 - 6) Continue Budesonide-Formot 160-4.5 Mcg [Symbicort 160-4.5 Mcg Inhaler] 2 puff INHALATION RT-BID #1 unit Ipratropium-Albuterol Nebulize [Duoneb 0.5 mg-3 mg/3 ml Soln] 3 ml INHALATION RT-TID PRN PRN Reason: Shortness Of Breath lamoTRIgine [LaMICtal] 100 mg PO BID Omeprazole 40 mg PO HS amLODIPine [Norvasc] 5 mg PO QAM ALPRAZolam [Xanax] 0.5 mg PO BID Tiotropium 2.5 Mcg/Puff [Spiriva Respimat 2.5 Mcg] 2 puff INHALATION QAM Sertraline [Zoloft] 50 mg PO BID Aspirin 325 mg PO QAM Discontinued predniSONE [Deltasone] 20 mg PO DAILY HYDROcodone/APAP 7.5-325MG [[place] 7.5-325] 1 tab PO BID PRN PRN Reason: Pain Discharge Medication List Budesonide-Formot 160-4.5 Mcg [Symbicort 160-4.5 Mcg Inhaler] 2 puff INHALATION RT-BID #1 unit 12/01/17 [Rx] Ipratropium-Albuterol Nebulize [Duoneb 0.5 mg-3 mg/3 ml Soln] 3 ml INHALATION RT-TID PRN 11/03/22 [History] amLODIPine [Norvasc] 5 mg PO QAM 12/26/22 [History] lamoTRIgine [LaMICtal] 100 mg PO BID 12/26/22 [History] ALPRAZolam [Xanax] 0.5 mg PO BID 02/08/23 [History] Tiotropium 2.5 Mcg/Puff [Spiriva Respimat 2.5 Mcg] 2 puff INHALATION QAM 06/06/23 [History] Aspirin 325 mg PO QAM 09/04/23 [History] Omeprazole 40 mg PO HS 09/04/23 [History] Sertraline [Zoloft] 50 mg PO BID 09/04/23 [History] Acetaminophen Tab [Tylenol] 650 mg PO Q4HR PRN tab 09/15/23 [Rx] HYDROcodone/APAP 7.5-325MG [[place] 7.5-325] 1 each PO Q4HR PRN #30 tab 09/15/23 [Rx] Follow up Appointment(s)/Referral(s): Ross Dwyer MD [STAFF PHYSICIAN] - 11/02/23 8:00 am Clemente Gongora MD [Primary Care Provider] - 09/19/23 1:15 pm Jules Danielle MD [STAFF PHYSICIAN] - 09/20/23 1:30 pm Juan Menendez MD [STAFF PHYSICIAN] - 09/29/23 11:30 am Ambulatory/Diagnostic Orders: XR chest 2V [RAD.AMB] Facility: [facility], Location: [facility] Activity/Diet/Wound Care/Special Instructions: DISCHARGE INSTRUCTIONS: 1. No driving for 2 weeks, or until physician gives their ok. 2. No lifting, pushing, or pulling more than 10 pounds for 2 weeks. The physician will advise of any restriction changes. 3. Continue pain control per as needed orders. Alternate acetaminophen (Tylenol) and ibuprofen (Motrin/Advil) for pain. 4. Continue with incentive spirometry and splinting until otherwise directed by the physician. 5. Leave chest tube dressing for 48 hours. After that, remove all dressings and shower daily. 6. Routine incision care. No powders, lotions, ointments on incisions. 7. Please call surgeon/GLOBAL RISK MANAGEMENT DIRECTOR for temp greater than 101 F or purulent drainage from incisions. 8. Smoking cessation counseling and program information provided. Quitting smoking is the most important step you can take to improve your health. For additional information and assistance to quit smoking, please call the [place] tobacco quit line (6-038-LWIN-NOW/ ) or online: [email or web address].[place].gov/ [email or web address] Discharge Disposition: HOME SELF-CARE
--- NOTE | 2023-09-15 10:01 | P.PN ---
Subjective Progress Note Date: 09/15/23 Principal diagnosis: poorly differentiated adenocarcinoma stage of right lung off 1.3 cm size stage T2 a, N0 M0, patient being evaluated for adjuvant chemotherapy as outpatient, in the meantime surveillance for recurrence to be performed with serial computed tomography scan as outpatient extensive subcutaneous emphysema involving head and neck bilateral Truncal area as well, progressively getting better end-stage COPD with baseline FEV1 of 0.84, off of his steroids on bronchodilator Right-sided middle lobe nodule status post resection generalized anxiety disorder Degenerative joint disease 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 joints Extensive history of smoking and nicotine use has been still smoking a quarter pack a day Right-sided small pneumothorax resolved, pneumomediastinum, pneumopericardium, extensive subcutaneous emphysema status post removal of right-sided chest tube 09/15/2023, patient seen and evaluated examined the rounds labs reviewed medications reviewed patient sitting upright in chair breathing comfortably getting nebulization treatmentvitals stable, chest x-ray from today reviewed chest tube on the right side removed extensive subcutaneous bilateral emphysema noted, not much change from baseline, no pneumothorax seen swelling and crepitus in the neck and trunk significantly improved,oxygen saturation is 92% room air, hemodynamic status stable patient is afebrile 09/14/2023, patient seen eval examined during the rounds labs reviewed medications and care plan discussed with the patient at length, Labs from today reviewed sodium 1:30 potassium 5.0, BUN/creatinine within normal range glucose 143, CBC within normal limit, patient is on room air now with oxygen saturation 96%.chest x-ray done earlier this morning extensivesubcutaneous emphysema, right-sided chest tube stable no pneumothorax is seen. Chest tube remains on water seal, was clamped for 24 hours no air leak is seen likely will be removed later on today. Deep breathing exercise incentive spirometry is in progress patient can do up to 1000 mL, oncology has evaluated the patient pathological stage is T2 1 N0, stage IB with negative nodes on biopsy tumor size 1.3 cm. Patient biopsy sent for mutation analysis for further recommendation pending for adjuvant chemotherapy as outpatient. September 12, 2023, patient seen eval examined during rounds labs reviewed medications and care plan discussed, care plan discussed with the cardiothoracic surgery as well. Chest tube is off of the suction now, on waterseal, no airleak has been noted, increased swelling in the face as well as the trunk slightly improved subcu emphysema improved but is still present patient remains on bronchodilators DVT prophylaxis with subcu heparin off of prednisone now. Chest x-ray from today reviewed extensive bilateral emphysema however no pneumothorax seen 09/11/2023, patient seen eval examined during rounds labs reviewed medications reviewed care plan discussed with the patient, patient sitting upright in his chair extensive facial swelling. Patient continued to have chest pain at the tube insertion site, patient has been on pain medicine, on 3 L oxygen saturation is a 94%, patient continued do deep breathing exercises incentive spirometry, hemodynamic status stable, patient is on suction 20 cm water with minimal output. Ration noted to have extensive swelling of lhead and neck and trunksubcu emphysema is present, patient is short of breath with fine end expiratory wheezing, her chest x-ray continued to show stable chest tube with extensive bilateral emphysema 09/09/2023, patient seen eval examined during rounds labs reviewed medications and care plan discussed, still have ongoing puffiness and subcu emphysema is present, get short of breath on activity and exertion, denies any chest pain diffuse aches and pain at the operative site however is present has been on pain medicines. Patient continued to have right-sided chest tube with a air leak.x right-sided chest tube imaging towards the apex, extensive bilateral subcu emphysema more so on the right side compared left side right-sided pneumothorax cannot be excluded. 63-year-old female with extensive history of smoking and nicotine use found to have responded on routine x-ray and CAT scan, PET scan came back strongly positive for right middle lobe neoplastic changespatient admitted for surgical resection. Patient has a long-standing history of smoking 2 packs a day for about 40 years, patient lately that down and stop smoking however is still intermittently smoking quarter to half pack per day. She had a history of the low-dose computed tomography scan 2016 negative for pulmonary nodules. However back in May right upper lobe infiltrate and a nodule and right middle lobe seen PET scan performed on July 16 came back strongly positive consistent with neoplasm. patient underwent right middle lobe nodule resection with 1 cm margins preliminary came back positive for non-small cell cancer Objective - Vital Signs Vital signs: Vital Signs Temp 98.1 F 09/15/23 04:00 Pulse 100 09/15/23 09:47 Resp 16 09/15/23 04:00 BP 125/74 09/15/23 04:00 Pulse Ox 92 L 09/15/23 04:00 FiO2 Intake & Output 09/14/23 09/15/23 09/15/23 18:59 06:59 18:59 Intake Total 360 240 Output Total 50 Balance 360 -50 240 Weight 60.2 kg Intake: Oral 360 240 Output: Stool 50 Other: Voiding Method Toilet # Voids 0 1 - Exam - Constitutional General appearance: average body habitus, disheveled, swelling of the face neck and trunk due to subcutaneous emphysema seen and noted, however continue to improve compared to yesterday's exam - EENT Eyes: poor dentition Ears: bilateral: normal - Neck Carotids: bilateral: upstroke normal Thyroid: bilateral: normal size - Respiratory on room air oxygen saturation 92%, right-sided chest tube removed Respiratory: bilateral: diminished, expiratory wheezing on fours expiration - Cardiovascular Rhythm: regular Heart sounds: normal: S1, S2 - Gastrointestinal General gastrointestinal: normal bowel sounds - Neurologic Neurologic: CNII-XII intact - Musculoskeletal Musculoskeletal: gait normal, generalized weakness, strength equal bilaterally - Psychiatric Psychiatric: A&O x's 3, appropriate affect, intact judgment & insight - Labs CBC & Chem 7: 09/14/23 09:07 09/14/23 09:07 Assessment and Plan Assessment: poorly differentiated adenocarcinoma stage of right lung off 1.3 cm size stage T2 a, N0 M0, patient being evaluated for adjuvant chemotherapy as outpatient, in the meantime surveillance for recurrence to be performed with serial computed tomography scan as outpatient extensive subcutaneous emphysema involving head and neck bilateral Truncal area as well, progressively getting better end-stage COPD with baseline FEV1 of 0.84, off of his steroids on bronchodilator Right-sided middle lobe nodule status post resection generalized anxiety disorder Degenerative joint disease 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 joints Extensive history of smoking and nicotine use has been still smoking a quarter pack a day Right-sided small pneumothoraxresolved, pneumomediastinum, pneumopericardium, extensive subcutaneous emphysema with right-sided chest tube removed Plan: oncology evaluation, Dr. Betancourt has been consulted Follow-up on final path report, still pending as of today Keep right-sided chest tube on Waterseal Increase deep breathing exercises incentive spirometry, increase activity as tolerated Continue oxygen titrated down as tolerated currently on 3 L we'll maintain that Continue bronchodilators Taper and DC prednisone Time with Patient: Greater than 30
[2023-09-15 10:35] VITALS: BP 146/84; PULSE 94; RESP 18
== END 2023-09-15 10:03 | disposition home or self-care (01) | DRG 164 ==
LOC: 2ORMAIN 05:37 → 3SCARD 10:56
PROVIDERS: ADMIT Thoracic Surgery (Cardiothoracic Vascular Surgery); ATTEND Thoracic Surgery (Cardiothoracic Vascular Surgery)
PROC: 07B74ZX Excision of Thorax Lymphatic, Percutaneous Endoscopic Approach, Diagnostic (ICD-10-PCS; 2023-09-07)
PROC: 8E0W4CZ Robotic Assisted Procedure of Trunk Region, Percutaneous Endoscopic Approach (ICD-10-PCS; 2023-09-07)
PROC: 0BBD4ZZ Excision of Right Middle Lung Lobe, Percutaneous Endoscopic Approach (ICD-10-PCS; principal; 2023-09-07 07:30)
DX: C34.2 Malignant neoplasm of middle lobe, bronchus or lung (principal); I31.9 Disease of pericardium, unspecified; J93.82 Other air leak; J93.9 Pneumothorax, unspecified; T79.7XXA Traumatic subcutaneous emphysema, initial encounter; G89.29 Other chronic pain; F17.200 Nicotine dependence, unspecified, uncomplicated; H91.90 Unspecified hearing loss, unspecified ear; F31.9 Bipolar disorder, unspecified; F41.1 Generalized anxiety disorder; I10 Essential (primary) hypertension; J44.89 Other specified chronic obstructive pulmonary disease; K21.9 Gastro-esophageal reflux disease without esophagitis; M47.9 Spondylosis, unspecified; M94.0 Chondrocostal junction syndrome [Tietze]; Z99.81 Dependence on supplemental oxygen; Z79.51 Long term (current) use of inhaled steroids; Z79.82 Long term (current) use of aspirin; Z79.899 Other long term (current) drug therapy; Z90.49 Acquired absence of other specified parts of digestive tract; Z93.3 Colostomy status; Z97.4 Presence of external hearing-aid
CPT/HCPCS: 71045; 71046; 80048; 80053; 85025; 85027; 88305; 88307; 88331; 88341; 88342; 94640; 94760

== ENCOUNTER → 2023-10-24 | Outpatient (CLI) | payer OTHER ==
--- NOTE | 2023-10-24 14:59 | CT ---
EXAMINATION TYPE: CT abdomen pelvis w con CT DLP: 430.2 mGycm, Automated exposure control for dose reduction was used. DATE OF EXAM: 10/24/2023 2:21 PM COMPARISON: 07/16/2023 CLINICAL INDICATION: Female, 63 years old with history of K57.32 DVTRCLI OF LG INT W/O PERFORATION OR ABSCES; recent colonoscopy. diverticuli. TECHNIQUE: Axial CT abdomen pelvis w con;Sagittal and coronal reformats were created on a separate w orkstation. Contrast used:75ml mL of Isovue 300 with IV Contrast, (none if empty) Oral contrast used: with Oral Contrast (none if empty) FINDINGS: LOWER CHEST: Unremarkable ABDOMEN LIVER: Unremarkable GALLBLADDER AND BILE DUCTS: Unremarkable. PANCREAS: Unremarkable. SPLEEN: Unremarkable. ADRENAL GLANDS: Unremarkable. KIDNEYS AND URETERS: No evidence of hydronephrosis or renal calculus. The ureters are unremarkable. PELVIS BLADDER: Unremarkable REPRODUCTIVE: The uterus is surgically absent. ABDOMEN & PELVIS STOMACH AND BOWEL: No evidence of bowel obstruction. Left lower quadrant ostomy. PERITONEUM/RETROPERITONEUM: No evidence of pneumoperitoneum or free fluid. VASCULATURE: Moderate atherosclerotic calcifications are present throughout the abdominal aorta and i ts branches. No evidence of aortic aneurysm. MUSCULOSKELETAL: No acute osseous abnormalities, degeneration changes of the hips with subchondral cy stic changes superior acetabulum. Mild scoliosis changes to the spine. No suspicious osseous lesions. LYMPH NODES: No gross evidence for lymphadenopathy. SOFT TISSUE/ABDOMINAL WALL: Surgical changes anterior abdominal wall. IMPRESSION: 1. Left lower quadrant ostomy. No evidence for acute abdominal process. No abscess or free air. 2. No new or enlarging lymph nodes identified.
== END | disposition home or self-care (01) ==
LOC: RADCTMAIN 11:58
PROVIDERS: ATTEND Surgery
DX: K57.32 Diverticulitis of large intestine without perforation or abscess without bleeding
CPT/HCPCS: 74177

== ENCOUNTER 2023-10-26 07:53 | Day surgery (SDC) | payer OTHER ==
[2023-10-26] MEDS: IV FLUID CONTINUATION 1,000 ML IV ONE (08:22)
[2023-10-26 08:33] VITALS: TEMP 97
[2023-10-26] MEDS: fentaNYL (PF) 50 MCG/ML 2 ML AMP IVP PRN (08:52)
[2023-10-26] MEDS: MIDAZOLAM 2 MG/2 ML VIAL IV ONE (09:04)
[2023-10-26 09:27] LABS: ALT 16 U/L (4-34); AST 26 U/L (14-36); African American GFR (CKD) >90 (>60 ml/min/1.73 sqM); Albumin 4.7 g/dL (3.5-5.0); Alkaline Phosphatase 74 U/L (38-126); Anion Gap 10 mmol/L; Blood Urea Nitrogen 4 mg/dL (7-17); Calcium 10.2 mg/dL (8.4-10.2); Carbon Dioxide 25 mmol/L (22-30); Chloride 100 mmol/L (98-107); Glucose 111 mg/dL (74-99); Non-African American GFR(CKD) >90 (>60 ml/min/1.73 sqM); Potassium 4.6 mmol/L (3.5-5.1); Sodium 135 mmol/L (137-145); Total Bilirubin 0.6 mg/dL (0.2-1.3)
[2023-10-26] MEDS: LACTATED RINGERS 1,000 ML IV SCH (09:27)
[2023-10-26 09:38] LABS: Basophils # (A) 0.1 k/uL (0-0.2); Basophils % (A) 1 %; Eosinophils # (A) 0.1 k/uL (0-0.7); Eosinophils % (A) 2 %; HGB 14.4 gm/dL (11.4-16.0); Lymphocytes % (A) 15 %; MCH 31.4 pg (25.0-35.0); MCV 98.2 fL (80.0-100.0); Mean Platelet Volume 7.4; Monocytes # (A) 0.4 k/uL (0-1.0); Monocytes % (A) 6 %; Neutrophils # (A) 5.1 k/uL (1.3-7.7); Neutrophils % (A) 75 %; Platelet Count 385 k/uL (150-450); RBC 4.58 m/uL (3.80-5.40); RDW 12.7 % (11.5-15.5); WBC 6.8 k/uL (3.8-10.6)
[2023-10-26] MEDS ORDERED: PROPOFOL 10 MG/ML 20 ML VIAL IV ONE (09:48)
--- NOTE | 2023-10-26 09:59 | P.GSHP ---
History of Present Illness H&P Date: 10/26/23 Chief Complaint: diverticulitiss is a 63-year-old female who presents today for colonoscopy. Patient has history of diverticulitis. Past Medical History Past Medical History: Chest Pain / Angina, COPD, GERD/Reflux, Hearing Disorder / Deafness, Hypertension, Osteoarthritis (OA), Respiratory Disorder Additional Past Medical History / Comment(s): Chronic bronchitis, sinus tachycardia, chronic back pain, migraines, bilateral hearing aid use, bilateral tinnitis, diverticulitis - colostomy, O2 3L/min at night, chest pain from anxiety, Rt. lung mass History of Any Multi-Drug Resistant Organisms: None Reported Past Surgical History: Appendectomy, Heart Catheterization, Hysterectomy, Tubal Ligation Additional Past Surgical History / Comment(s): Loop recorder inserted and later removed, Schafer's procedure/colostomy 05/2023, Rt. lung mass removed 09/07/23 Past Anesthesia/Blood Transfusion Reactions: No Reported Reaction Smoking Status: Former smoker - Past Family History Brother(s) Family Medical History: Coronary Artery Disease (CAD), Myocardial Infarction (MA) Additional Family Medical History / Comment(s): MA in his early 40s, had pacemaker. Sister(s) Family Medical History: Mitral Valve Prolapse (MVP) Father Additional Family Medical History / Comment(s): "Post Op MRSA infection- from complications of that." Mother Family Medical History: Cancer Additional Family Medical History / Comment(s): Lung cancer. Medications and Allergies Home Medications Medication Instructions Recorded Confirmed Type Budesonide-Formot 160-4.5 Mcg 2 puff INHALATION RT-BID #1 unit 12/01/17 10/26/23 Rx [Symbicort 160-4.5 Mcg Inhaler] Ipratropium-Albuterol Nebulize 3 ml INHALATION RT-TID PRN 11/03/22 10/26/23 History [Duoneb 0.5 mg-3 mg/3 ml Soln] amLODIPine [Norvasc] 5 mg PO QAM 12/26/22 10/26/23 History ALPRAZolam [Xanax] 0.5 mg PO BID 02/08/23 10/26/23 History Tiotropium 2.5 Mcg/Puff [Spiriva 2 puff INHALATION QAM 06/06/23 10/26/23 History Respimat 2.5 Mcg] Aspirin 325 mg PO QAM 09/04/23 10/26/23 History Omeprazole 40 mg PO HS 09/04/23 10/26/23 History Sertraline [Zoloft] 50 mg PO BID 09/04/23 10/26/23 History HYDROcodone/APAP 10-325MG [[place] 1 tab PO Q6HR PRN 10/20/23 10/26/23 History 10-325] Allergies Allergy/AdvReac Type Severity Reaction Status Date / Time dust AdvReac Dyspnea Uncoded 10/26/23 08:26 Surgical - Exam Vital Signs Temp Pulse Resp BP Pulse Ox 97.0 F L 99 16 134/77 98 10/26/23 08:33 10/26/23 08:33 10/26/23 08:33 10/26/23 08:33 10/26/23 08:33 - General well developed, well nourished, no distress - Eyes PERRL - ENT normal pinna - Neck no masses - Respiratory normal expansion - Cardiovascular Rhythm: regular - Abdomen Abdomen: soft, non tender Results - Labs 10/26/23 09:04 10/26/23 09:04 Abnormal Lab Results - Last 24 Hours (Table) 10/26/23 Range/Units 09:04 Sodium 135 L (137-145) mmol/L BUN 4 L (7-17) mg/dL Creatinine 0.40 L (0.52-1.04) mg/dL Glucose 111 H (74-99) mg/dL Diabetes panel 10/26/23 Range/Units 09:04 Sodium 135 L (137-145) mmol/L Potassium 4.6 (3.5-5.1) mmol/L Chloride 100 (98-107) mmol/L Carbon Dioxide 25 (22-30) mmol/L BUN 4 L (7-17) mg/dL Creatinine 0.40 L (0.52-1.04) mg/dL Glucose 111 H (74-99) mg/dL Calcium 10.2 (8.4-10.2) mg/dL AST 26 (14-36) U/L ALT 16 (4-34) U/L Alkaline Phosphatase 74 (38-126) U/L Total Protein 7.0 (6.3-8.2) g/dL Albumin 4.7 (3.5-5.0) g/dL Calcium panel 10/26/23 Range/Units 09:04 Calcium 10.2 (8.4-10.2) mg/dL Albumin 4.7 (3.5-5.0) g/dL Pituitary panel 10/26/23 Range/Units 09:04 Sodium 135 L (137-145) mmol/L Potassium 4.6 (3.5-5.1) mmol/L Chloride 100 (98-107) mmol/L Carbon Dioxide 25 (22-30) mmol/L BUN 4 L (7-17) mg/dL Creatinine 0.40 L (0.52-1.04) mg/dL Glucose 111 H (74-99) mg/dL Calcium 10.2 (8.4-10.2) mg/dL Adrenal panel 10/26/23 Range/Units 09:04 Sodium 135 L (137-145) mmol/L Potassium 4.6 (3.5-5.1) mmol/L Chloride 100 (98-107) mmol/L Carbon Dioxide 25 (22-30) mmol/L BUN 4 L (7-17) mg/dL Creatinine 0.40 L (0.52-1.04) mg/dL Glucose 111 H (74-99) mg/dL Calcium 10.2 (8.4-10.2) mg/dL Total Bilirubin 0.6 (0.2-1.3) mg/dL AST 26 (14-36) U/L ALT 16 (4-34) U/L Alkaline Phosphatase 74 (38-126) U/L Total Protein 7.0 (6.3-8.2) g/dL Albumin 4.7 (3.5-5.0) g/dL Assessment and Plan Assessment: history of diverticulitis. We'll perform colonoscopy.
--- NOTE | 2023-10-26 10:06 | P.OP ---
Date of Procedure: 10/26/23 Preoperative Diagnosis: diverticulitis Postoperative Diagnosis: possible colonic stricture Procedure(s) Performed: colonoscopy Anesthesia: MAC Surgeon: Juan José Joyner Pathology: none sent Condition: stable Disposition: PACU Description of Procedure: the patient's placed on the endoscopy table in the lateral position. She received IV sedation. Digital rectal exam was performed which revealed no abnormalities. The flexible colonoscope was then placed patient anus and passed colon. Scope then passed and sigmoid colon secondary to a possible colonic stricture. The scope was withdrawn and a pediatric scope was placed. It too could not be passed beyond the;. Flexible withdrawn. Patient was scheduled for a barium enema.
[2023-10-26 10:21] VITALS: RESP 15
[2023-10-26 10:54] VITALS: BP 118/62; PULSE 67
--- NOTE | 2023-10-27 09:52 | P.OP ---
Date of Procedure: 10/26/23 Preoperative Diagnosis: History of diverticulitis Postoperative Diagnosis: History of diverticulitis Procedure(s) Performed: Colonoscopy Anesthesia: MAC Surgeon: Juan José Joyner Pathology: none sent Condition: stable Disposition: PACU Description of Procedure: The patient is placed on the endoscopy table lateral position she received IV sedation. Digital rectal exams performed. This revealed no abnormality. The flexible colonoscope was then placed patient anus and passed to approximately 25 cm venecia. This point scope withdrawn. There is no pathology seen in the rectum. Next the scope colonoscope was placed the patient's colostomy and passed throughout the colon. The scope to be passed beyond the hepatic flexure secondary to tortuosity bowel. Splits the scope was withdrawn. There were some mild diverticular changes seen in the transverse colon. The scope was withdrawn from the patient.
== END 2023-10-26 12:04 | disposition home or self-care (01) ==
LOC: ORWHC2ENDO 07:53
PROVIDERS: ATTEND Surgery
DX: K57.30 Diverticulosis of large intestine without perforation or abscess without bleeding (principal); F41.9 Anxiety disorder, unspecified; G89.29 Other chronic pain; I10 Essential (primary) hypertension; J44.9 Chronic obstructive pulmonary disease, unspecified; K21.9 Gastro-esophageal reflux disease without esophagitis; M19.90 Unspecified osteoarthritis, unspecified site; H91.90 Unspecified hearing loss, unspecified ear; Z79.51 Long term (current) use of inhaled steroids; Z87.891 Personal history of nicotine dependence; Z90.49 Acquired absence of other specified parts of digestive tract; Z93.3 Colostomy status; Z80.1 Family history of malignant neoplasm of trachea, bronchus and lung; Z90.710 Acquired absence of both cervix and uterus
CPT/HCPCS: 86900; 86901; 80053; 85025; 86850; 45330; J2250; J3010; J2704

== ENCOUNTER 2023-10-27 06:58 | Inpatient (IN) | payer OTHER ==
[~2023-10-27 06:58] MED LIST changes: +ACETAMINOPHEN TAB 500 MG TAB PO PRN; -LIDOCAINE 1% (10MG/ML) FOR IV START INTRADERMA PRN; -PROPOFOL 10 MG/ML 20 ML VIAL IV ONE
[2023-10-27] MEDS ORDERED: HYDROmorphone 0.5 MG/0.5 ML SYRINGE IVP PRN (07:00)
[2023-10-27] MEDS: IV FLUID CONTINUATION 1,000 ML IV ONE ×2 (07:27→13:16)
[2023-10-27] MEDS: DEXAMETHASONE SOD PHOSPHATE 4 MG/ML 1 ML VIAL IV ONE (07:58)
[2023-10-27] MEDS: ONDANSETRON 4 MG/2 ML VIAL IVP ONE (07:58)
[2023-10-27] MEDS: LACTATED RINGERS 1,000 ML IV SCH (07:59)
[2023-10-27] MEDS: MIDAZOLAM 2 MG/2 ML VIAL IV PRN (08:43)
[2023-10-27] MEDS: fentaNYL (PF) 50 MCG/ML 2 ML AMP IVP PRN (08:44)
[2023-10-27] MEDS: metroNIDAZOLE-NS PMX 500 MG in SALINE 1 100ML.BAG IVPB PRN (09:03)
[2023-10-27] MEDS ORDERED: diphenhydrAMINE 50 MG/ML 1 ML VIAL IVP PRN (09:19)
[2023-10-27] MEDS ORDERED: NALOXONE 0.4 MG/ML 1 ML VIAL IV PRN (09:19)
[2023-10-27] MEDS ORDERED: ONDANSETRON 4 MG/2 ML VIAL IVP PRN (09:19)
--- NOTE | 2023-10-27 09:23 | P.ANPRN ---
Procedure Note - Anesthesia - Epidural/Spinal Epidural Continuous Time Out Performed: Yes Date of Procedure: 10/27/23 Procedure Start Time: 08:43 Procedure Stop Time: 08:56 Location of Patient: PreOp Indication: Acute Post-Operative Pain, Requested by Surgeon (azael) Sedation Type: Sedate with meaningful contact maintained Preparation: Sterile Dressing Number of Attempts: 2 Position: Sitting Catheter Depth at Skin (cm): 11 Catheter: Indwelling Needle Guage: 18 Injectate: lido 1.5% with epi Narrative: T10 epidural Blood Aspirated: No Pain Paresthesia on Injection Noted: No Events: Uneventful and Well Tolerated
[2023-10-27] MEDS ORDERED: PHENYLEPHRINE 10 MG/ML VIAL ONE (09:43)
[2023-10-27] MEDS ORDERED: NEOSTIGMINE 1 MG/ML 10 ML VIAL ONE (09:43)
[2023-10-27] MEDS ORDERED: PROPOFOL 10 MG/ML 20 ML VIAL IV ONE (09:43)
[2023-10-27] MEDS ORDERED: GLYCOPYRROLATE 0.2 MG/ML 2 ML VIAL ONE (09:43)
[2023-10-27] MEDS ORDERED: fentaNYL (PF) 50 MCG/ML 2 ML AMP ONE (09:43)
[2023-10-27] MEDS ORDERED: ROCURONIUM 10 MG/ML (5 ML VIAL) IV ONE (09:43)
[2023-10-27] MEDS: LACTATED RINGERS 1,000 ML IV ONE (11:25)
[2023-10-27] MEDS: ROPIVACAINE 250 MG, fentaNYL (PF) 1,250 MCG in SODIUM CHLORIDE 0.9% 175 ML EPIDURAL PRN (11:32)
[2023-10-27] MEDS ORDERED: BENZOCAINE/MENTHOL LOZENG 1 EACH LOZENGE MUCOUS MEM PRN (11:38)
--- NOTE | 2023-10-27 11:38 | P.OP ---
Date of Procedure: 10/27/23 Preoperative Diagnosis: History appropriate diverticulitis Postoperative Diagnosis: History of perforated diverticulitis Procedure(s) Performed: Takedown colostomy Lysis of extensive adhesions Takedown of splenic flexure Repair of parastomal hernia Anesthesia: AUBREY Surgeon: Juan José Joyner Estimated Blood Loss (ml): 50 Pathology: other (Colon) Condition: stable Disposition: PACU Description of Procedure: The patient was placed on the operative table in the supine position. She received general endotracheal tube anesthesia. She was then placed in dorsal thigh position. Her abdomen was prepped and draped you sterile fashion. The patient the colostomy left lower quadrant. The skin was incised. And then electrocautery abdominal wall was divided. There were significant adhesions to the anterior armida wall. These were lysed with sharp dissection. There were more adhesions seen in the purulent cavity. These were lysed with sharp dissection prophy 40 minutes of lap time used to lyse adhesions between the small bowel. The patient had a parastomal hernia. The small bowel was reduced from the hernia. And then the colon was transected with a SHANIKA stapler. At this point the pelvis were examined. The rectal stump was visualized. There was a piece of small bowel adhered to the staple and the rectal stump. The small bowel was dissected with sharp dissection off of the rectal stump. At this point the splenic flexure was taken down with sharp dissection with cautery. And then the white line of [place] was divided. There was an adequate length of colon. The stapler for the 29 mm EEA stapler was placed into the proximal colon through the staple line. And then the colon was transected the SHANIKA stapler. And then the spike was driven through the staple line. The distal sigmoid colon was dissected free by using the Enseal device to divide the mesentery of the specimen sent to pathology. At this point the assistance used the anal dilator to dilate the anus with the 25 and then 29 mm dilator. The 29 mm EEA stapler is placed patient's anus and then the spike was driven through the rectal wall. The animals To the spike. And then the stapler closed and fired. 2 intact tissue rings were withdrawn from around the stapler. Then using a bowel clamp the bowel was occluded. Then using a rigid sigmoidoscope there was air placed into the rectal's. There was no extravasation of air seen at the staple line. This was done under water. At this point the abdomen was irrigated. There is no bleeding seen. The fascia was closed looped #1 PDS suture. Skin was low loreta. The colostomy then removed. The colostomy repaired in 2 layers using #1 strata fix and 0 Vicryl suture. Skin the colostomy was closed with 0 Vicryl with loreta. Patient tolerated well. Sterile dressing was applied. She was sent to recovery in stable condition.
[2023-10-27] MEDS: HEPARIN SODIUM,PORCINE 5,000 UNIT/ML 1 ML VIAL SQ PRN (11:51)
[2023-10-27] MEDS: MORPHINE SULFATE 2 MG/ML SYRINGE IVP STA (12:59)
[2023-10-27] MEDS: droPERidol 5 MG/2 ML VIAL IVP ONE (13:04)
[2023-10-27] MEDS: SCOPOLAMINE 1 MG/72 HR PATCH TRANSDERM ONE (15:06)
[2023-10-27] MEDS: D5-0.45% NACL WITH KCL 20MEQ/L 1,000 ML IV SCH (16:49)
[2023-10-27 17:10] LABS: African American GFR (CKD) >90 (>60 ml/min/1.73 sqM); Anion Gap 7 mmol/L; Blood Urea Nitrogen 7 mg/dL (7-17); Calcium 8.8 mg/dL (8.4-10.2); Carbon Dioxide 23 mmol/L (22-30); Chloride 99 mmol/L (98-107); Glucose 98 mg/dL (74-99); Non-African American GFR(CKD) >90 (>60 ml/min/1.73 sqM); Potassium 5.1 mmol/L (3.5-5.1); Sodium 129 mmol/L (137-145)
[2023-10-27 17:18] LABS: Basophils % (A) 0 %; Eosinophils % (A) 0 %; HCT 39.2 % (34.0-46.0); HGB 12.6 gm/dL (11.4-16.0); Lymphocytes # (A) 0.7 k/uL (1.0-4.8); Lymphocytes % (A) 5 %; MCH 31.9 pg (25.0-35.0); MCHC 32.2 g/dL (31.0-37.0); MCV 99.1 fL (80.0-100.0); Mean Platelet Volume 7.1; Monocytes # (A) 1.1 k/uL (0-1.0); Monocytes % (A) 7 %; Neutrophils # (A) 13.7 k/uL (1.3-7.7); Neutrophils % (A) 88 %; Platelet Count 327 k/uL (150-450); RBC 3.96 m/uL (3.80-5.40); RDW 12.8 % (11.5-15.5); WBC 15.6 k/uL (3.8-10.6)
[2023-10-27] MEDS: HEPARIN SODIUM,PORCINE 5,000 UNIT/ML 1 ML VIAL SQ SCH (17:38)
[2023-10-27] MEDS: METOCLOPRAMIDE 5 MG/ML 2 ML VIAL IVP PRN (20:07)
[2023-10-27] MEDS: ALPRAZolam 0.5 MG TAB PO SCH (20:08)
[2023-10-27] MEDS: SERTRALINE 50 MG TAB PO SCH (20:08)
[2023-10-27] MEDS: MORPHINE SULFATE 2 MG/ML SYRINGE IVP PRN (20:27)
[2023-10-27] MEDS: IPRATROPIUM-ALBUTEROL 3 ML NEB INHALATION PRN (21:10)
[2023-10-27] MEDS: SYMBICORT 160-4.5 MCG INHALER INHALATION SCH (21:10)
--- NOTE | 2023-10-27 22:52 | PN ---
PROGRESS NOTE SUBJECTIVE: She is status post colostomy stoma removal with bowel reconnection. Her home medications have been reordered. White count is 15.6, neutrophils 13.7, sodium 129, potassium 5.1, creatinine 0.46. PHYSICAL EXAMINATION: CARDIOVASCULAR: S1, S2. GI: Soft. NEUROLOGIC: Alert and oriented x3. PSYCH: Fair mood and affect. VITAL SIGNS: T-max 103, temp 95, O2 of 96% on 3 L, blood pressure 127/78. Status post colostomy reversal. Continue on home medications. Continue breathing treatments. Continue oxygen. Standard pain control. PT, OT. Recheck labs in the morning. Prognosis guarded. MMODL / IJN: [id number] /
[2023-10-28] MEDS: PANTOPRAZOLE 40 MG TABLET PO SCH ×2 (06:31→20:05)
[2023-10-28] MEDS: ONDANSETRON 4 MG/2 ML VIAL IVP PRN (09:04)
--- NOTE | 2023-10-28 09:07 | P.PN ---
Progress Note - Text Epidural catheter discontinued per surgeon this a.m. Epidural rate was 8 mL/h. No complications from epidural catheter.
[2023-10-28] MEDS: ASPIRIN 325 MG TAB PO SCH (09:09)
[2023-10-28] MEDS: amLODIPine 5 MG TAB PO SCH (09:09)
[2023-10-28] MEDS: ALVIMOPAN 12 MG CAPSULE PO SCH (09:09)
--- NOTE | 2023-10-28 09:09 | P.PN ---
Subjective Progress Note Date: 10/28/23 Patient has complaints of incisional pain. She states her epidural is not working. On exam vital signs appear stable. Abdomen soft. Status post reversal of colostomy and repair of parastomal hernia. Patient will have epidural removed today. We will start Dilaudid IV 1 mg every 3 hours as needed. The patient will have her diet advanced once her bowel function returns. Objective - Vital Signs Vital signs: Vital Signs Temp 99.0 F 10/28/23 07:07 Pulse 98 10/28/23 07:07 Resp 17 10/28/23 07:07 BP 120/80 10/28/23 07:07 Pulse Ox 98 10/28/23 07:07 FiO2 Intake & Output 10/27/23 10/28/23 10/28/23 18:59 06:59 18:59 Intake Total 1950 Output Total 945 400 Balance 1005 -400 Weight 61.7 kg Intake: IV 1950 Output: Urine 925 400 Estimated Blood Loss 20 Other: Voiding Method Indwelling Catheter - Labs CBC & Chem 7: 10/27/23 16:20 10/27/23 16:20 Labs: Abnormal Lab Results - Last 24 Hours (Table) 10/27/23 10/27/23 Range/Units 16:20 16:20 WBC 15.6 H (3.8-10.6) k/uL Neutrophils # 13.7 H (1.3-7.7) k/uL Lymphocytes # 0.7 L (1.0-4.8) k/uL Monocytes # 1.1 H (0-1.0) k/uL Sodium 129 L (137-145) mmol/L Creatinine 0.46 L (0.52-1.04) mg/dL
[2023-10-28] MEDS: IPRATROPIUM 0.5 MG/2.5 ML NEBU INHALATION SCH (09:12)
[2023-10-28] MEDS: HYDROmorphone 1 MG/ML 1 ML SYRINGE IVP PRN (09:19)
[2023-10-28 09:37] LABS: Basophils # (A) 0.03 X 10*3/uL (0.00-0.10); Basophils % (A) 0.3 %; Eosinophils # (A) 0.01 X 10*3/uL (0.04-0.35); Eosinophils % (A) 0.1 %; HCT 38.9 % (37.2-46.3); HGB 12.8 g/dL (12.0-15.0); Lymphocytes # (A) 1.24 X 10*3/uL (0.90-5.00); Lymphocytes % (A) 10.4 %; MCH 31.8 pg (27.0-32.0); MCHC 32.9 g/dL (32.0-37.0); MCV 96.5 FL (80.0-97.0); Mean Platelet Volume 9.8 FL (9.5-12.2); Monocytes # (A) 1.29 X 10*3/uL (0.20-1.00); Monocytes % (A) 10.8 %; NRBC Per 100 WBC 0 X 10*3/uL (0.00-0.01); Neutrophils # (A) 9.29 X 10*3/uL (1.80-7.70); Platelet Count 340 X 10*3/uL (140-440); RBC 4.03 X 10*6/uL (4.10-5.20); RDW 13.1 % (11.5-14.5); WBC 11.91 X 10*3/uL (4.50-10.00)
[2023-10-28 10:38] LABS: ALT 13 U/L (8-44); AST 19 U/L (13-35); Albumin 3.5 g/dL (3.8-4.9); Alkaline Phosphatase 63 U/L (41-126); Blood Urea Nitrogen 5.8 mg/dL (9.0-27.0); Calcium 8.3 mg/dL (8.7-10.3); Carbon Dioxide 22.6 mmol/L (21.6-31.8); Chloride 96 mmol/L (96-109); Globulin 1.4 g/dL (1.6-3.3); Glucose 134 mg/dL (70-110); Potassium 4.3 mmol/L (3.5-5.5); Sodium 128 mmol/L (135-145); Total Bilirubin 0.6 mg/dL (0.3-1.2); Total Protein 4.9 g/dL (6.2-8.2)
--- NOTE | 2023-10-29 09:43 | P.PN ---
Subjective Progress Note Date: 10/29/23 Patient is requesting something to eat. She has had no bowel function. She states she is nauseated with Dilaudid. She is unsure if she is having any chest pain. On exam vital signs are stable. Abdomen is soft. Incisions clean dry intact. Patient will have EKG performed today. Patient was educated that she will not have any significant change in her diet until she has return of her bowel function. Patient will receive supportive care. Objective - Vital Signs Vital signs: Vital Signs Temp 97.8 F 10/29/23 07:11 Pulse 100 10/29/23 07:58 Resp 18 10/29/23 07:11 BP 143/67 10/29/23 07:11 Pulse Ox 98 10/29/23 07:11 FiO2 Intake & Output 10/28/23 10/29/23 10/29/23 18:59 06:59 18:59 Output Total 1000 Balance -1000 Output: Urine 1000 Other: Voiding Method Indwelling Catheter Indwelling Catheter - Labs CBC & Chem 7: 10/28/23 05:49 10/28/23 05:49 Labs: Abnormal Lab Results - Last 24 Hours (Table) 10/28/23 Range/Units 05:49 Sodium 128 L (135-145) mmol/L BUN 5.8 L (9.0-27.0) mg/dL Creatinine 0.5 L (0.6-1.5) mg/dL BUN/Creatinine Ratio 11.60 L (12.00-20.00) Ratio Glucose 134 H (70-110) mg/dL Calcium 8.3 L (8.7-10.3) mg/dL Total Protein 4.9 L (6.2-8.2) g/dL Albumin 3.5 L (3.8-4.9) g/dL Globulin 1.4 L (1.6-3.3) g/dL
[2023-10-29] MEDS: KETOROLAC 15 MG/ML 1 ML VIAL IVP PRN (14:33)
[2023-10-29] MEDS: SODIUM CHLORIDE 0.9% 1,000 ML IV SCH (14:34)
[2023-10-29] MEDS: IPRATROPIUM-ALBUTEROL 3 ML NEB INHALATION SCH (15:35)
[2023-10-29] MEDS: IPRATROPIUM-ALBUTEROL 3 ML NEB INHALATION STA (15:35)
--- NOTE | 2023-10-29 19:00 | PN ---
PROGRESS NOTE A 63-year-old white female, appears to be doing better postop reversal of ileostomy. Incisional pain. Epidural is not working. I did give her Dilaudid 1 mg every 3 hours. Diet advanced once her bowel function returns, continue on her breathing treatments, oxygen. OBJECTIVE: VITAL SIGNS: Blood pressure 120/80, temp 99, pulse 80s to 90s respiratory rate 16 to 18, O2 98. CARDIOVASCULAR: S1, S2. LUNGS: Transmitted upper sounds. GI: Soft. HEMATOLOGY: Negative for Homans. White count is 15.6, BUN is 12.6, sodium 129, potassium 5.1. Continue on current treatment. Patient is improving. Daily check electrolytes. Prognosis guarded. MMODL / IJN: [id number] /
[2023-10-29] MEDS ORDERED: BUDESONIDE 0.5 MG/2 ML NEBU INHALATION SCH (20:00)
--- NOTE | 2023-10-29 21:15 | PN ---
PROGRESS NOTE Has some chest tightness when she woke up this morning. EKG showed no ischemia. helped with chest pain. EKG shows PACs. White count 11.91, hemoglobin is 12.8 sodium 128, potassium 4.3, glucose 134. Hold her troponin. We will give her some fluids for hyponatremia hypokalemia. Prognosis guarded. Continue current treatment postop rehab. Check troponin. EKG shows no ischemia. MMODL / IJN: [id number] /
--- NOTE | 2023-10-30 10:23 | P.PN ---
Subjective Progress Note Date: 10/30/23 CHIEF COMPLAINT: History of perforated diverticulitis HISTORY OF PRESENT ILLNESS: Patient is postop day #3 status post takedown of colostomy, lysis of extensive adhesions, takedown of splenic flexure and repair of parastomal hernia. Patient reports her pain is tolerable. Denies any vomiting. Reports decrease in nausea. Denies any bowel activity. Patient reports ambulating to the bathroom only. Afebrile. Labs pending. EKG from yesterday sinus rhythm with PACs PHYSICAL EXAM: VITAL SIGNS: Reviewed. GENERAL: Well-developed in no acute distress. ABDOMEN: Soft. Mildly distended. Incisional dressing clean dry and intact NEUROLOGIC: Alert and oriented. Cranial nerves II through XII grossly intact. ASSESSMENT: 1. History of perforated diverticulitis PLAN: -Continue clear liquid diet -Change surgical dressing to Optifoam silver -Continue pain management -Encourage patient to ambulate -Consult PT OT -Encourage patient to use incentive spirometer -Continue IV fluids at 75ml/hr -GI prophylaxis Protonix and DVT prophylaxis subcu heparin Physician Advertising Designer note has been reviewed by physician. Signing provider agrees with the documented findings, assessment, and plan of care. Objective - Vital Signs Vital signs: Vital Signs Temp 97.9 F 10/30/23 07:56 Pulse 80 10/30/23 09:01 Resp 17 10/30/23 07:56 BP 125/71 10/30/23 07:56 Pulse Ox 94 L 10/30/23 07:56 FiO2 Intake & Output 10/29/23 10/30/23 10/30/23 18:59 06:59 18:59 Output Total 1300 Balance -1300 Output: Urine 1300 Uretheral ([place]) 1300 Other: Voiding Method Indwelling Catheter Toilet # Voids 1 1 - Labs CBC & Chem 7: 10/28/23 05:49 10/28/23 05:49
[2023-10-30] MEDS: SODIUM CHLORIDE 0.9% 1,000 ML IV SCH (10:29)
[2023-10-30 11:34] LABS: Basophils % (A) 0 %; Eosinophils # (A) 0.1 k/uL (0-0.7); Eosinophils % (A) 1 %; HCT 34.8 % (34.0-46.0); Lymphocytes # (A) 0.6 k/uL (1.0-4.8); Lymphocytes % (A) 7 %; MCH 31.3 pg (25.0-35.0); MCHC 31.7 g/dL (31.0-37.0); MCV 98.8 fL (80.0-100.0); Mean Platelet Volume 7.6; Monocytes # (A) 0.6 k/uL (0-1.0); Monocytes % (A) 7 %; Neutrophils # (A) 7.5 k/uL (1.3-7.7); Neutrophils % (A) 84 %; Platelet Count 343 k/uL (150-450); RBC 3.52 m/uL (3.80-5.40); RDW 12.7 % (11.5-15.5); WBC 8.9 k/uL (3.8-10.6)
[2023-10-30 11:45] LABS: African American GFR (CKD) >90 (>60 ml/min/1.73 sqM); Anion Gap 6 mmol/L; Blood Urea Nitrogen <2 mg/dL (7-17); Calcium 8.4 mg/dL (8.4-10.2); Carbon Dioxide 26 mmol/L (22-30); Chloride 91 mmol/L (98-107); Glucose 116 mg/dL (74-99); Non-African American GFR(CKD) >90 (>60 ml/min/1.73 sqM); Potassium 4.1 mmol/L (3.5-5.1); Sodium 123 mmol/L (137-145)
--- NOTE | 2023-10-30 20:33 | PN ---
PROGRESS NOTE OBJECTIVE: VITAL SIGNS: O2 is 91% on 2 L. LUNGS: Transmitted upper sounds. CARDIOVASCULAR: S1, S2. ABDOMEN: Soft, nontender. History of perforated diverticulitis. Clear liquid diet. Pain management, PT, OT. Encourage incentive spirometer. Possible DVT prophylaxis. Possibly go home soon. Increased breathing treatments are helping her breathing. She is saturating 91% on 2 L. Hemoglobin is 11, down from 12.8. Sodium is down to 123. Prognosis guarded. Please see further orders. MMODL / IJN: [id number] /
[2023-10-30] MEDS: SODIUM BICARBONATE TAB 650 MG TAB PO SCH (20:40)
[2023-10-31 08:57] LABS: ALT 10 U/L (8-44); AST 10 U/L (13-35); Albumin 3.3 g/dL (3.8-4.9); Albumin/Globulin Ratio 1.94 Ratio (1.60-3.17); Alkaline Phosphatase 69 U/L (41-126); BUN/Creat Ratio <11.67 Ratio (12.00-20.00); Blood Urea Nitrogen <3.5 mg/dL (9.0-27.0); Calcium 8.6 mg/dL (8.7-10.3); Carbon Dioxide 26.4 mmol/L (21.6-31.8); Chloride 91 mmol/L (96-109); Globulin 1.7 g/dL (1.6-3.3); Glucose 99 mg/dL (70-110); Potassium 3.8 mmol/L (3.5-5.5); Sodium 128 mmol/L (135-145); Total Bilirubin 0.6 mg/dL (0.3-1.2)
[2023-10-31 09:20] LABS: Basophils # (A) 0.03 X 10*3/uL (0.00-0.10); Basophils % (A) 0.3 %; Eosinophils # (A) 0.09 X 10*3/uL (0.04-0.35); HCT 32.4 % (37.2-46.3); HGB 11.1 g/dL (12.0-15.0); Lymphocytes % (A) 8.1 %; MCH 31.7 pg (27.0-32.0); MCHC 34.3 g/dL (32.0-37.0); MCV 92.6 FL (80.0-97.0); Mean Platelet Volume 10.1 FL (9.5-12.2); Monocytes # (A) 0.95 X 10*3/uL (0.20-1.00); Monocytes % (A) 10.9 %; NRBC Per 100 WBC 0 X 10*3/uL (0.00-0.01); Neutrophils # (A) 6.89 X 10*3/uL (1.80-7.70); Neutrophils % (A) 79.4 %; Platelet Count 380 X 10*3/uL (140-440); RDW 12.7 % (11.5-14.5); WBC 8.69 X 10*3/uL (4.50-10.00)
[2023-10-31] MEDS: ACETAMINOPHEN IV (For NPO) 1,000 MG in EMPTY BAG 1 BAG IVPB SCH (10:44)
--- NOTE | 2023-10-31 12:56 | P.PN ---
Subjective Progress Note Date: 10/31/23 CHIEF COMPLAINT: History of perforated diverticulitis HISTORY OF PRESENT ILLNESS: Patient is postop day #4 status post takedown of colostomy, lysis of extensive adhesions, takedown of splenic flexure and repair of parastomal hernia. Patient complains of abdominal pain. She has been up to ambulate. She did have nausea earlier. Denies any bowel activity. She does report feel more bloated after taking in the liquids. Afebrile. WBC 8.69 Hgb 11.1 platelets 380 sodium 128 potassium 3.8 creatinine 0.3 Patient seen and examined with Dr. Joyner PHYSICAL EXAM: VITAL SIGNS: Reviewed. GENERAL: Well-developed in no acute distress. ABDOMEN: Soft. Mildly distended. Incisional dressing clean dry and intact NEUROLOGIC: Alert and oriented. Cranial nerves II through XII grossly intact. ASSESSMENT: 1. History of perforated diverticulitis PLAN: -Add IV Tylenol for pain management. -Encourage patient to increase activity level -Encourage patient to go slow with the clear liquid diet -Continue clear liquid diet -Consult PT OT -Encourage patient to use incentive spirometer -Continue IV fluids at 75ml/hr -GI prophylaxis Protonix and DVT prophylaxis subcu heparin -Dr. Joyner will be out of town starting tomorrow and will return on 11/06/2023. Dr. Gonzalez and Dr. Shepherd will be covering his patients Physician Crocodile Farmer note has been reviewed by physician. Signing provider agrees with the documented findings, assessment, and plan of care. Objective - Vital Signs Vital signs: Vital Signs Temp 98.4 F 10/31/23 07:28 Pulse 92 10/31/23 11:35 Resp 18 10/31/23 12:24 BP 135/76 10/31/23 07:28 Pulse Ox 96 10/31/23 08:37 FiO2 Intake & Output 10/30/23 10/31/23 10/31/23 18:59 06:59 18:59 Other: Voiding Method Toilet # Voids 1 5 - Labs CBC & Chem 7: 10/31/23 05:46 10/31/23 05:46 Labs: Abnormal Lab Results - Last 24 Hours (Table) 10/31/23 10/31/23 Range/Units 05:46 05:46 RBC 3.50 L (4.10-5.20) X 10*6/uL Hgb 11.1 L (12.0-15.0) g/dL Hct 32.4 L (37.2-46.3) % Lymphocytes # 0.70 L (0.90-5.00) X 10*3/uL Sodium 128 L (135-145) mmol/L Chloride 91 L (96-109) mmol/L BUN <3.5 L (9.0-27.0) mg/dL Creatinine 0.3 L (0.6-1.5) mg/dL BUN/Creatinine Ratio <11.67 L (12.00-20.00) Ratio Calcium 8.6 L (8.7-10.3) mg/dL AST 10 L (13-35) U/L Total Protein 5.0 L (6.2-8.2) g/dL Albumin 3.3 L (3.8-4.9) g/dL
[2023-10-31] MEDS: KETOROLAC 15 MG/ML 1 ML VIAL IVP SCH (13:03)
--- NOTE | 2023-10-31 20:37 | PN ---
PROGRESS NOTE SUBJECTIVE: A 63-year-old white female, status post ileostomy reversal, on clear liquid diet. She is saturating 92% on 2 L. OBJECTIVE: VITAL SIGNS: Blood pressure 135/79, pulse 90, respiratory rate 16 to 18, temp 98.2. LUNGS: Transmitted upper sounds. Decreased breath sounds. Mild wheeze. CARDIOVASCULAR: S1, S2. GI: Soft. HEMATOLOGY: Negative Homans. NEUROLOGIC: Alert and oriented x3. She has been up ambulating a little bit. Surgery put a midline in her today for IV access. She has not passed gas up until today. She had a history of perforated diverticulitis. Abdomen is mildly distended. Incisional dressing clean and dry. She had some nausea, denies any bowel activity. She feels more bloated. White count 8.69, hemoglobin 11.1, sodium 128, potassium 3.8. We gave her Tylenol, activity level, clear liquid diet, PT, OT. Dr. Gonzalez or Dr. Shepherd may be covering in the near future. Continue with postop care. Pain control. MMODL / IJN: [id number] /
[2023-11-01 08:45] LABS: Basophils # (A) 0.06 X 10*3/uL (0.00-0.10); Basophils % (A) 0.6 %; Eosinophils # (A) 0.07 X 10*3/uL (0.04-0.35); Eosinophils % (A) 0.7 %; HCT 34.8 % (37.2-46.3); HGB 11.5 g/dL (12.0-15.0); Lymphocytes # (A) 0.59 X 10*3/uL (0.90-5.00); MCH 31.3 pg (27.0-32.0); MCV 94.8 FL (80.0-97.0); Mean Platelet Volume 10.2 FL (9.5-12.2); Monocytes # (A) 1.13 X 10*3/uL (0.20-1.00); Monocytes % (A) 11.4 %; NRBC Per 100 WBC 0 X 10*3/uL (0.00-0.01); Neutrophils # (A) 7.98 X 10*3/uL (1.80-7.70); Neutrophils % (A) 80.6 %; Platelet Count 380 X 10*3/uL (140-440); RBC 3.67 X 10*6/uL (4.10-5.20); RDW 12.6 % (11.5-14.5)
[2023-11-01 09:34] LABS: ALT 10 U/L (8-44); AST 17 U/L (13-35); Albumin 3.5 g/dL (3.8-4.9); Albumin/Globulin Ratio 1.75 Ratio (1.60-3.17); Alkaline Phosphatase 72 U/L (41-126); BUN/Creat Ratio <8.75 Ratio (12.00-20.00); Blood Urea Nitrogen <3.5 mg/dL (9.0-27.0); Calcium 8.8 mg/dL (8.7-10.3); Carbon Dioxide 25.3 mmol/L (21.6-31.8); Chloride 87 mmol/L (96-109); Glucose 104 mg/dL (70-110); Sodium 126 mmol/L (135-145); Total Bilirubin 0.5 mg/dL (0.3-1.2); Total Protein 5.5 g/dL (6.2-8.2)
--- NOTE | 2023-11-01 13:45 | P.PN ---
Subjective Progress Note Date: 11/01/23 CHIEF COMPLAINT: History of perforated diverticulitis HISTORY OF PRESENT ILLNESS: Patient is postop day #5 status post takedown of colostomy, lysis of extensive adhesions, takedown of splenic flexure and repair of parastomal hernia. Patient complains of abdominal pain. She has been up to ambulate. She has had a large amount of flatus that started yesterday. No bowel movement. A little nausea. No vomiting. Patient requesting advancement of diet. She is afebrile. WBC 9.9 Hgb 11.5 sodium 126 Patient seen and examined with Dr. Gonzalez who is covering for Dr. Joyner PHYSICAL EXAM: VITAL SIGNS: Reviewed. GENERAL: Well-developed in no acute distress. ABDOMEN: Soft. Minimally distended. Incisional dressing dry and intact. Small amount of drainage on the lateral left dressing NEUROLOGIC: Alert and oriented. Cranial nerves II through XII grossly intact. ASSESSMENT: 1. History of perforated diverticulitis PLAN: -Advance diet to full liquids -Add [place] for oral pain medication -Encourage patient to increase activity level -Encourage patient to use incentive spirometer -Hyponatremia management per medicine service. Repeat BMP in AM -GI prophylaxis Protonix and DVT prophylaxis subcu heparin Physician Janitor note has been reviewed by physician. Signing provider agrees with the documented findings, assessment, and plan of care. Objective - Vital Signs Vital signs: Vital Signs Temp 98.0 F 11/01/23 13:06 Pulse 101 H 11/01/23 13:06 Resp 16 11/01/23 13:06 BP 123/68 11/01/23 13:06 Pulse Ox 93 L 11/01/23 13:06 FiO2 Intake & Output 10/31/23 11/01/23 11/01/23 18:59 06:59 18:59 Intake Total 350 1500 Balance 350 1500 Intake: Oral 350 1500 Other: Voiding Method Toilet Toilet Toilet # Voids 4 2 - Labs CBC & Chem 7: 11/01/23 04:08 11/01/23 04:08 Labs: Abnormal Lab Results - Last 24 Hours (Table) 11/01/23 11/01/23 Range/Units 04:08 04:08 RBC 3.67 L (4.10-5.20) X 10*6/uL Hgb 11.5 L (12.0-15.0) g/dL Hct 34.8 L (37.2-46.3) % Immature Gran # 0.07 H (0.00-0.04) X 10*3/uL Neutrophils # 7.98 H (1.80-7.70) X 10*3/uL Lymphocytes # 0.59 L (0.90-5.00) X 10*3/uL Monocytes # 1.13 H (0.20-1.00) X 10*3/uL Sodium 126 L (135-145) mmol/L Chloride 87 L (96-109) mmol/L Anion Gap 13.70 H (4.00-12.00) mmol/L BUN <3.5 L (9.0-27.0) mg/dL Creatinine 0.4 L (0.6-1.5) mg/dL BUN/Creatinine Ratio <8.75 L (12.00-20.00) Ratio Total Protein 5.5 L (6.2-8.2) g/dL Albumin 3.5 L (3.8-4.9) g/dL
--- NOTE | 2023-11-02 00:22 | PN ---
PROGRESS NOTE SUBJECTIVE: A 63-year-old white female with history of perforated diverticulitis, status post ileostomy. Her pain is under better control. She is passing gas. She wants her diet advanced. OBJECTIVE: NEUROLOGIC: Cranial nerves intact. ABDOMEN: Soft. LUNGS: Transmitted upper sounds. Mild wheeze. CARDIOVASCULAR: S1, S2. PLAN: Advance diet to full liquids. Add [place] for pain control. Encourage the patient to increase activity level. Incentive spirometry. Hyponatremia. Check BNP. Continue current treatment. Prognosis guarded. Ambulate as tolerated. Advance diet. Please see further orders. MMODL / IJN: [id number] /
[2023-11-02] MEDS: HYDROcodone/APAP 5-325MG 1 EACH TAB PO PRN (03:08)
[2023-11-02 08:36] LABS: Basophils # (A) 0.07 X 10*3/uL (0.00-0.10); Basophils % (A) 0.6 %; Eosinophils # (A) 0.19 X 10*3/uL (0.04-0.35); Eosinophils % (A) 1.7 %; HCT 34.6 % (37.2-46.3); HGB 11.5 g/dL (12.0-15.0); Lymphocytes # (A) 0.93 X 10*3/uL (0.90-5.00); Lymphocytes % (A) 8.2 %; MCH 31.1 pg (27.0-32.0); MCHC 33.2 g/dL (32.0-37.0); MCV 93.5 FL (80.0-97.0); Mean Platelet Volume 9.6 FL (9.5-12.2); Monocytes # (A) 1.59 X 10*3/uL (0.20-1.00); NRBC Per 100 WBC 0 X 10*3/uL (0.00-0.01); Neutrophils # (A) 8.48 X 10*3/uL (1.80-7.70); Neutrophils % (A) 74.4 %; Platelet Count 450 X 10*3/uL (140-440); RDW 12.6 % (11.5-14.5); WBC 11.38 X 10*3/uL (4.50-10.00)
[2023-11-02 09:04] LABS: ALT 11 U/L (8-44); AST 18 U/L (13-35); Albumin 3.4 g/dL (3.8-4.9); Albumin/Globulin Ratio 1.79 Ratio (1.60-3.17); Alkaline Phosphatase 76 U/L (41-126); BUN/Creat Ratio 9.25 Ratio (12.00-20.00); Blood Urea Nitrogen 3.7 mg/dL (9.0-27.0); Calcium 8.6 mg/dL (8.7-10.3); Carbon Dioxide 24.3 mmol/L (21.6-31.8); Chloride 88 mmol/L (96-109); Globulin 1.9 g/dL (1.6-3.3); Glucose 103 mg/dL (70-110); Potassium 3.9 mmol/L (3.5-5.5); Sodium 127 mmol/L (135-145); Total Bilirubin 0.4 mg/dL (0.3-1.2); Total Protein 5.3 g/dL (6.2-8.2)
--- NOTE | 2023-11-02 13:12 | P.PN ---
Subjective Progress Note Date: 11/02/23 CHIEF COMPLAINT: History of perforated diverticulitis HISTORY OF PRESENT ILLNESS: Patient is postop day #6 status post takedown of colostomy, lysis of extensive adhesions, takedown of splenic flexure and repair of parastomal hernia. Patient reports she is feeling better. She is having bowel movements and flatus. She is sitting up at the bedside chair. She reports tolerating her oatmeal this morning. Requesting advancement of diet. Also requesting to be restarted on her home dose of [place] 10. Afebrile. WBC mildly elevated at 11.38 Hgb 11.5 sodium 127 Patient seen and examined with Dr. Shepherd who is covering for Dr. Joyner PHYSICAL EXAM: VITAL SIGNS: Reviewed. GENERAL: Well-developed in no acute distress. ABDOMEN: Soft. Nondistended. Incisional dressing dry and intact. Small amount of drainage on the lateral left dressing NEUROLOGIC: Alert and oriented. Cranial nerves II through XII grossly intact. ASSESSMENT: 1. History of perforated diverticulitis PLAN: -Advance diet to low fiber -Increase [place] to 10 mg p.o. every 6 hours as needed for pain. This is patient's home dose -Repeat CBC and BMP in a.m. -Encourage patient to increase activity level -Encourage patient to use incentive spirometer -Hyponatremia management per medicine service. -Anticipate possible discharge tomorrow -Abdominal binder ordered -GI prophylaxis Protonix and DVT prophylaxis subcu heparin Physician Machine Tack Puller note has been reviewed by physician. Signing provider agrees with the documented findings, assessment, and plan of care. Objective - Vital Signs Vital signs: Vital Signs Temp 97.7 F 11/02/23 08:14 Pulse 92 11/02/23 11:28 Resp 16 11/02/23 08:14 BP 128/70 11/02/23 08:14 Pulse Ox 93 L 11/02/23 08:14 FiO2 Intake & Output 11/01/23 11/02/23 11/02/23 18:59 06:59 18:59 Other: Voiding Method Toilet Toilet Toilet # Voids 1 2 - Labs CBC & Chem 7: 11/02/23 04:13 11/02/23 04:13 Labs: Abnormal Lab Results - Last 24 Hours (Table) 11/02/23 11/02/23 Range/Units 04:13 04:13 WBC 11.38 H (4.50-10.00) X 10*3/uL RBC 3.70 L (4.10-5.20) X 10*6/uL Hgb 11.5 L (12.0-15.0) g/dL Hct 34.6 L (37.2-46.3) % Plt Count 450 H (140-440) X 10*3/uL Immature Gran # 0.12 H (0.00-0.04) X 10*3/uL Neutrophils # 8.48 H (1.80-7.70) X 10*3/uL Monocytes # 1.59 H (0.20-1.00) X 10*3/uL Sodium 127 L (135-145) mmol/L Chloride 88 L (96-109) mmol/L Anion Gap 14.70 H (4.00-12.00) mmol/L BUN 3.7 L (9.0-27.0) mg/dL Creatinine 0.4 L (0.6-1.5) mg/dL BUN/Creatinine Ratio 9.25 L (12.00-20.00) Ratio Calcium 8.6 L (8.7-10.3) mg/dL Total Protein 5.3 L (6.2-8.2) g/dL Albumin 3.4 L (3.8-4.9) g/dL
[2023-11-02 13:29] VITALS: BP 101/72; RESP 19; TEMP 97.5
[2023-11-02 15:01] VITALS: PULSE 92
--- NOTE | 2023-11-02 15:17 | P.DS ---
Providers Date of admission: 10/27/23 06:58 Expected date of discharge: 11/02/23 Attending physician: Juan José Joyner Consults: 10/27/23 11:38 Consult Physician Routine Consulting Provider: Clemente Gongora Reason/Comments: Medical management Do you want consulting provider notified?: Yes Primary care physician: Clemente Gongora [facility] Course: Discharge diagnosis 1. History of perforated diverticulitis 2. Chronic hyponatremia Hospital course This is a 63-year-old female with a history of perforated diverticulitis. She is status post takedown of colostomy, lysis of extensive adhesions, takedown of splenic flexure and repair of parastomal hernia. Patient is tolerating diet. Her pain is controlled. She has been up and ambulating. She is having bowel movements. She is afebrile. She is stable for discharge. Physician Counsel note has been reviewed by physician. Signing provider agrees with the documented findings, assessment, and plan of care. Patient Condition at Discharge: Stable Plan - Discharge Summary Discharge Rx Participant: No New Discharge Prescriptions: Continue Budesonide-Formot 160-4.5 Mcg [Symbicort 160-4.5 Mcg Inhaler] 2 puff INHALATION RT-BID #1 unit Ipratropium-Albuterol Nebulize [Duoneb 0.5 mg-3 mg/3 ml Soln] 3 ml INHALATION RT-TID PRN PRN Reason: Shortness Of Breath Omeprazole 40 mg PO HS amLODIPine [Norvasc] 5 mg PO QAM ALPRAZolam [Xanax] 0.5 mg PO BID Tiotropium 2.5 Mcg/Puff [Spiriva Respimat 2.5 Mcg] 2 puff INHALATION QAM Sertraline [Zoloft] 50 mg PO BID Aspirin 325 mg PO QAM HYDROcodone/APAP 10-325MG [Drifting 10-325] 1 tab PO Q6HR PRN PRN Reason: Pain Discharge Medication List Budesonide-Formot 160-4.5 Mcg [Symbicort 160-4.5 Mcg Inhaler] 2 puff INHALATION RT-BID #1 unit 12/01/17 [Rx] Ipratropium-Albuterol Nebulize [Duoneb 0.5 mg-3 mg/3 ml Soln] 3 ml INHALATION R T-TID PRN 11/03/22 [History] amLODIPine [Norvasc] 5 mg PO QAM 12/26/22 [History] ALPRAZolam [Xanax] 0.5 mg PO BID 02/08/23 [History] Tiotropium 2.5 Mcg/Puff [Spiriva Respimat 2.5 Mcg] 2 puff INHALATION QAM 06/06/23 [History] Aspirin 325 mg PO QAM 09/04/23 [History] Omeprazole 40 mg PO HS 09/04/23 [History] Sertraline [Zoloft] 50 mg PO BID 09/04/23 [History] HYDROcodone/APAP 10-325MG [Drifting 10-325] 1 tab PO Q6HR PRN 10/20/23 [History] Follow up Appointment(s)/Referral(s): Juan José Joyner MD [STAFF PHYSICIAN] - 1 Week Clemente Gongora MD [Primary Care Provider] - 1-2 Days Activity/Diet/Wound Care/Special Instructions: No driving while taking Drifting No lifting over 10 pounds Shower daily. No soaking or tub baths for 2 weeks Very light activity until you are reevaluated at your follow up appointment with your surgeon Discharge Disposition: HOME SELF-CARE
[2023-11-02 15:43] VITALS: BMI 21.3
[2023-11-02] MEDS: HYDROcodone/APAP 10-325MG 1 EACH TAB PO PRN (15:58)
== END 2023-11-02 16:39 | disposition home or self-care (01) | DRG 330 ==
LOC: 2ORMAIN 06:58 → 4SSUR 13:52
PROVIDERS: ADMIT Surgery; ATTEND Surgery
PROC: 0DNW0ZZ Release Peritoneum, Open Approach (ICD-10-PCS; 2023-10-27)
PROC: 0DN80ZZ Release Small Intestine, Open Approach (ICD-10-PCS; 2023-10-27)
PROC: 0WQF0ZZ Repair Abdominal Wall, Open Approach (ICD-10-PCS; 2023-10-27)
PROC: 0DBL0ZZ Excision of Transverse Colon, Open Approach (ICD-10-PCS; principal; 2023-10-27 09:00)
DX: Z43.3 Encounter for attention to colostomy (principal); E87.1 Hypo-osmolality and hyponatremia; K43.5 Parastomal hernia without obstruction or gangrene; K66.0 Peritoneal adhesions (postprocedural) (postinfection); E87.6 Hypokalemia; Z79.899 Other long term (current) drug therapy
CPT/HCPCS: 36410; 76937; 80048; 80053; 84484; 85025; 88304; 93005; 94640; 94760

== ENCOUNTER → 2024-01-22 | Outpatient (CLI) | payer OTHER ==
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
== END | disposition home or self-care (01) ==
LOC: RADCTMAIN 10:48
PROVIDERS: ATTEND Internal Medicine
DX: C34.90 Malignant neoplasm of unspecified part of unspecified bronchus or lung (principal); J44.9 Chronic obstructive pulmonary disease, unspecified; R51.9 Headache, unspecified; J43.9 Emphysema, unspecified; R91.8 Other nonspecific abnormal finding of lung field; Z85.118 Personal history of other malignant neoplasm of bronchus and lung
CPT/HCPCS: 71260; Q9967

== ENCOUNTER 2024-03-15 09:08 | Observation (INO) | payer OTHER ==
[2024-03-15] MEDS: HYDROmorphone 0.5 MG/0.5 ML SYRINGE IVP STA (09:34)
[2024-03-15] MEDS: SODIUM CHLORIDE 0.9% 500 ML 500 ML IV ONE (09:34)
[2024-03-15 09:45] LABS: Basophils % (A) 0 %; Eosinophils # (A) 0.1 k/uL (0-0.7); Eosinophils % (A) 1 %; HCT 41.3 % (34.0-46.0); HGB 13.5 gm/dL (11.4-16.0); Lymphocytes % (A) 7 %; MCH 29.8 pg (25.0-35.0); MCHC 32.6 g/dL (31.0-37.0); MCV 91.6 fL (80.0-100.0); Mean Platelet Volume 6.9; Monocytes % (A) 6 %; Neutrophils # (A) 12.7 k/uL (1.3-7.7); Neutrophils % (A) 86 %; Platelet Count 798 k/uL (150-450); RBC 4.52 m/uL (3.80-5.40); RDW 14.5 % (11.5-15.5); WBC 14.8 k/uL (3.8-10.6)
--- NOTE | 2024-03-15 09:51 | XR ---
EXAMINATION TYPE: XR chest 2V DATE OF EXAM: 03/15/2024 9:45 AM COMPARISON: Chest radiographs from 10/27/2023, CT chest 01/22/2024 TECHNIQUE: XR chest 2V Frontal and lateral views of the chest. CLINICAL INDICATION:Female, 64 years old with history of Chest Pain; FINDINGS: Lungs/Pleura: There is flattening of the diaphragm with increased lucency of the lungs. No evidence o f pneumothorax or pleural effusion. Right upper lobe patchy opacities are unchanged. Pulmonary vascularity: Unremarkable. Heart/mediastinum: Cardiomediastinal silhouette is unremarkable. Musculoskeletal: No acute osseous pathology. Remote anterior wedge compression deformity involving th e T7 vertebral body. IMPRESSION: 1. Unchanged right upper lobe patchy airspace opacities which may represent residual infectious proc ess versus scarring. 2. COPD changes. [facility], , 03/15/2024 9:49 AM
--- NOTE | 2024-03-15 09:58 | ED ---
General Adult HPI - General Chief complaint: Chest Pain Stated complaint: chest pain, hand/facial numbness Time Seen by Provider: 03/15/24 09:18 Source: patient, family, RN notes reviewed, old records reviewed Mode of arrival: wheelchair Limitations: no limitations - History of Present Illness Initial comments: 64-year-old female presenting for evaluation of chest pain. Chest pain began yesterday and was associated with what the patient thought was heartburn. This was central mid to upper chest pain. Pain worsened this morning and the patient developed some numbness and tingling into the left arm. She denies a known history of coronary artery disease. - Related Data Home Medications Medication Instructions Recorded Confirmed ALPRAZolam [Xanax] 0.5 mg PO BID 02/08/23 03/15/24 Sertraline [Zoloft] 50 mg PO BID 09/04/23 03/15/24 HYDROcodone/APAP 10-325MG [Page 1 tab PO QID 10/20/23 03/15/24 10-325] Albuterol Sulfate/Budesonide 2 puff INHALATION RT-Q4H PRN 03/15/24 03/15/24 [Airsupra 90-80 Mcg Inhaler] Clarithromycin [Biaxin] 500 mg PO BID 03/15/24 03/15/24 amLODIPine [Norvasc] 10 mg PO DAILY 03/15/24 03/15/24 lamoTRIgine [LaMICtal] 100 mg PO BID 03/15/24 03/15/24 Previous Rx's Medication Instructions Recorded Budesonide-Formot 160-4.5 Mcg 2 puff INHALATION RT-BID #1 unit 12/01/17 [Symbicort 160-4.5 Mcg Inhaler] Allergies Allergy/AdvReac Type Severity Reaction Status Date / Time dust AdvReac Dyspnea Uncoded 03/15/24 09:48 Review of Systems ROS Statement: Those systems with pertinent positive or pertinent negative responses have been documented in the HPI. ROS Other: All systems not noted in ROS Statement are negative. Past Medical History Past Medical History: Chest Pain / Angina, COPD, GERD/Reflux, Hearing Disorder / Deafness, Hypertension, Osteoarthritis (OA), Respiratory Disorder Additional Past Medical History / Comment(s): Chronic bronchitis, sinus ta chycardia, chronic back pain, migraines, bilateral hearing aid use, bilateral tinnitis, diverticulitis - colostomy, O2 3L/min at night, chest pain from anxiety, Rt. lung mass History of Any Multi-Drug Resistant Organisms: None Reported Past Surgical History: Appendectomy, Heart Catheterization, Hysterectomy, Tubal Ligation Additional Past Surgical History / Comment(s): Loop recorder inserted and later removed, Schafer's procedure/colostomy 05/2023, Rt. lung mass removed 09/07/23 Past Anesthesia/Blood Transfusion Reactions: No Reported Reaction Past Psychological History: Anxiety, Depression Smoking Status: Former smoker Past Alcohol Use History: None Reported Past Drug Use History: None Reported - Past Family History Brother(s) Family Medical History: Coronary Artery Disease (CAD), Myocardial Infarction (IN) Additional Family Medical History / Comment(s): IN in his early 40s, had pacemaker. Sister(s) Family Medical History: Mitral Valve Prolapse (MVP) Father Additional Family Medical History / Comment(s): "Post Op MRSA infection- from complications of that." Mother Family Medical History: Cancer Additional Family Medical History / Comment(s): Lung cancer. General Exam Limitations: no limitations General appearance: alert, in no apparent distress Head exam: Present: atraumatic, normocephalic Eye exam: Present: normal appearance, PERRL ENT exam: Present: normal exam Neck exam: Present: normal inspection. Absent: tenderness, meningismus Respiratory exam: Present: normal lung sounds bilaterally. Absent: respiratory distress, wheezes Cardiovascular Exam: Present: normal rhythm, tachycardia GI/Abdominal exam: Present: soft. Absent: distended, tenderness, guarding Extremities exam: Present: normal inspection, normal capillary refill Neurological exam: Present: alert, oriented X3 Psychiatric exam: Present: normal affect, normal mood Course Vital Signs 03/15/24 03/15/24 09:13 11:17 Temperature 98.1 F Pulse Rate 113 H 95 Respiratory 20 20 Rate Blood Pressure 134/80 138/83 O2 Sat by Pulse 99 97 Oximetry Medical Decision Making - Medical Decision Making Was pt. sent in by a medical professional or institution (, PA, HYDRODYNAMICS TEACHER, urgent ca re, hospital, or care home...) When possible be specific @ -No Did you speak to anyone other than the patient for history (EMS, parent, family, police, friend...)? What history was obtained from this source @ -No Did you review nursing and triage notes (agree or disagree)? Why? @ -I reviewed and agree with nursing and triage notes Were old charts reviewed (outside hosp., previous admission, EMS record, old EKG, old radiological studies, urgent care reports/EKG's, care home records)? Report findings @ -No old charts were reviewed Differential Chest Pain: Stable Angina, Unstable Angina, STEMI, NSTEMI Aortic Dissection, Pneumothorax, Musculoskeletal, Esophageal Spasm GERD, Cholecystitis, Pancreatitis, Zoster, this is not meant to be an all-inclusive list. EKG interpreted by me (3pts min.). @ -Sinus tachycardia rate of 105, IL interval 126, QRS duration 94, QTc [address] segment changes. X-rays interpreted by me (1pt min.). @2 view chest x-ray showing persistent right upper lobe opacity unchanged from prior, no acute findings. CT interpreted by me (1pt min.). @ -None done U/S interpreted by me (1pt. min.). @ -None done What testing was considered but not performed or refused? (CT, X-rays, U/S, labs)? Why? @ -None What meds were considered but not given or refused? Why? @ -None Did you discuss the management of the patient with other professionals (professionals i.e. , PA, HYDRODYNAMICS TEACHER, lab, RT, psych nurse, social work instructor, sinter press operator, teacher, chief program officer, continuous pillowcase cutter)? Give summary @ -Case discussed with Dr. Gongora who will admit. Was smoking cessation discussed for >3mins.? @ -No Was critical care preformed (if so, how long)? @ -No Were there social determinants of health that impacted care today? How? (Homelessness, low income, unemployed, alcoholism, drug addiction, transportation, low edu. Level, literacy, decrease access to med. care, penitentiary, rehab)? @ -No Was there de-escalation of care discussed even if they declined (Discuss DNR or withdrawal of care, Hospice)? DNR status @ -No What co-morbidities impacted this encounter? (DM, HTN, Smoking, COPD, CAD, Cancer, CVA, ARF, Chemo, Hep., AIDS, mental health diagnosis, sleep apnea, morbid obesity)? @ -COPD Was patient admitted / discharged? Hospital course, mention meds given and route, prescriptions, significant lab abnormalities, going to OR and other pertinent info. @ -64-year-old female with chest discomfort over the past 24 hours. EKG is sinus tach at [address] segment elevation. Chest x-ray unchanged from baseline, no acute findings. She has a leukocytosis of uncertain etiology, otherwise normal laboratory testing including negative initial troponin. Patient will be observed for serial cardiac enzymes, telemetry, cardiology consultation. Undiagnosed new problem with uncertain prognosis? @ -No Drug Therapy requiring intensive monitoring for toxicity (Heparin, Nitro, Insulin, Cardizem)? @ -No Were any procedures done? @ -No Diagnosis/symptom? @ -Chest pain rule out Acute, or Chronic, or Acute on Chronic? @ -Acute Uncomplicated (without systemic symptoms) or Complicated (systemic symptoms)? @ -Default Side effects of treatment? @ -No Exacerbation, Progression, or Severe Exacerbation? @ -No Poses a threat to life or bodily function? How? (Chest pain, [place], [place], pneumonia, PE, COPD, DKA, ARF, appy, cholecystitis, CVA, Diverticulitis, Homicidal, Suicidal, threat to staff... and all critical care pts) @ -Yes, ACS - Lab Data Result diagrams: 03/15/24 09:20 03/15/24 09:20 Lab Results 03/15/24 03/15/24 03/15/24 Range/Units 09:20 09:20 09:20 WBC 14.8 H (3.8-10.6) k/uL RBC 4.52 (3.80-5.40) m/uL Hgb 13.5 (11.4-16.0) gm/dL Hct 41.3 (34.0-46.0) % MCV 91.6 (80.0-100.0) fL MCH 29.8 (25.0-35.0) pg MCHC 32.6 (31.0-37.0) g/dL RDW 14.5 (11.5-15.5) % Plt Count 798 H (150-450) k/uL MPV 6.9 Neutrophils % 86 % Lymphocytes % 7 % Monocytes % 6 % Eosinophils % 1 % Basophils % 0 % Neutrophils # 12.7 H (1.3-7.7) k/uL Lymphocytes # 1.0 (1.0-4.8) k/uL Monocytes # 1.0 (0-1.0) k/uL Eosinophils # 0.1 (0-0.7) k/uL Basophils # 0.0 (0-0.2) k/uL PT 10.0 (10.0-12.5) sec INR 0.9 (<1.2) APTT 19.7 L (22.0-30.0) sec D-Dimer 0.53 (<0.60) mg/L FEU Sodium 128 L (137-145) mmol/L Potassium 4.3 (3.5-5.1) mmol/L Chloride 92 L (98-107) mmol/L Carbon Dioxide 25 (22-30) mmol/L Anion Gap 11 mmol/L BUN 20 H (7-17) mg/dL Creatinine 0.58 (0.52-1.04) mg/dL Est GFR (CKD-EPI)AfAm >90 (>60 ml/min/1.73 sqM) Est GFR (CKD-EPI)NonAf >90 (>60 ml/min/1.73 sqM) Glucose 109 H (74-99) mg/dL Calcium 9.6 (8.4-10.2) mg/dL Magnesium 2.2 (1.6-2.3) mg/dL Total Bilirubin 0.6 (0.2-1.3) mg/dL AST 27 (14-36) U/L ALT 28 (4-34) U/L Alkaline Phosphatase 101 (38-126) U/L Troponin I (0.000-0.034) ng/mL Total Protein 6.8 (6.3-8.2) g/dL Albumin 4.3 (3.5-5.0) g/dL Lipase 125 (23-300) U/L 03/15/24 Range/Units 09:20 WBC (3.8-10.6) k/uL RBC (3.80-5.40) m/uL Hgb (11.4-16.0) gm/dL Hct (34.0-46.0) % MCV (80.0-100.0) fL MCH (25.0-35.0) pg MCHC (31.0-37.0) g/dL RDW (11.5-15.5) % Plt Count (150-450) k/uL MPV Neutrophils % % Lymphocytes % % Monocytes % % Eosinophils % % Basophils % % Neutrophils # (1.3-7.7) k/uL Lymphocytes # (1.0-4.8) k/uL Monocytes # (0-1.0) k/uL Eosinophils # (0-0.7) k/uL Basophils # (0-0.2) k/uL PT (10.0-12.5) sec INR (<1.2) APTT (22.0-30.0) sec D-Dimer (<0.60) mg/L FEU Sodium (137-145) mmol/L Potassium (3.5-5.1) mmol/L Chloride (98-107) mmol/L Carbon Dioxide (22-30) mmol/L Anion Gap mmol/L BUN (7-17) mg/dL Creatinine (0.52-1.04) mg/dL Est GFR (CKD-EPI)AfAm (>60 ml/min/1.73 sqM) Est GFR (CKD-EPI)NonAf (>60 ml/min/1.73 sqM) Glucose (74-99) mg/dL Calcium (8.4-10.2) mg/dL Magnesium (1.6-2.3) mg/dL Total Bilirubin (0.2-1.3) mg/dL AST (14-36) U/L ALT (4-34) U/L Alkaline Phosphatase (38-126) U/L Troponin I <0.012 (0.000-0.034) ng/mL Total Protein (6.3-8.2) g/dL Albumin (3.5-5.0) g/dL Lipase (23-300) U/L Disposition Clinical Impression: Chest pain Disposition: ADMITTED IP TO THIS HOSP Condition: Stable Is patient prescribed a controlled substance at d/c from ED?: No Referrals: Clemente Gongora MD [Primary Care Provider] - 1-2 days Time of Disposition: 11:47
[2024-03-15 10:06] LABS: ALT 28 U/L (4-34); AST 27 U/L (14-36); African American GFR (CKD) >90 (>60 ml/min/1.73 sqM); Albumin 4.3 g/dL (3.5-5.0); Alkaline Phosphatase 101 U/L (38-126); Anion Gap 11 mmol/L; Blood Urea Nitrogen 20 mg/dL (7-17); Calcium 9.6 mg/dL (8.4-10.2); Carbon Dioxide 25 mmol/L (22-30); Chloride 92 mmol/L (98-107); Glucose 109 mg/dL (74-99); Lipase 125 U/L (23-300); Magnesium 2.2 mg/dL (1.6-2.3); Non-African American GFR(CKD) >90 (>60 ml/min/1.73 sqM); Potassium 4.3 mmol/L (3.5-5.1); Sodium 128 mmol/L (137-145); Total Bilirubin 0.6 mg/dL (0.2-1.3); Total Protein 6.8 g/dL (6.3-8.2)
[2024-03-15 10:07] LABS: INR 0.9 (<1.2)
[2024-03-15 10:22] LABS: Partial Thromboplastin Time 19.7 sec (22.0-30.0)
[2024-03-15] MEDS: MORPHINE SULFATE 4 MG/ML SYRINGE IVP STA (10:58)
[2024-03-15] MEDS ORDERED: MORPHINE SULFATE 4 MG/ML SYRINGE IV PRN (11:41)
[2024-03-15] MEDS ORDERED: ONDANSETRON 4 MG/2 ML VIAL IVP PRN (11:41)
[2024-03-15] MEDS ORDERED: ACETAMINOPHEN TAB 325 MG TAB PO PRN (11:41)
[2024-03-15] MEDS ORDERED: NALOXONE 0.4 MG/ML 1 ML VIAL IV PRN (11:41)
[2024-03-15] MEDS: SODIUM CHLORIDE 0.9% 1,000 ML IV SCH (12:54)
[2024-03-15] MEDS: MORPHINE SULFATE 4 MG/ML SYRINGE IV PRN (15:03)
--- NOTE | 2024-03-15 16:22 | CT ---
EXAMINATION TYPE: CT chest wo con DATE OF EXAM: 03/15/2024 4:09 PM COMPARISON: CT chest 01/22/2024, PET/CT 6-24 CLINICAL INDICATION: Female, 64 years old with history of cap, history of lung cancer TECHNIQUE: CT chest wo con , with sagittal coronal reformats. If MIP/3-D images were created, there a re created on a separate workstation. Contrast used: mL of , (none if empty) Oral contrast used: (none if empty) CT DLP: 166.1 mGycm, Automated exposure control for dose reduction was used. FINDINGS: CT CHEST: Portion of the thyroid visualized is normal. No suspicious lung nodules or focal infiltrates are present. Emphysematous changes are present. Appea rs to be scarring in the right middle lobe present on the comparison. Previous nodularity has resolve d No enlarged mediastinal or hilar adenopathy is evident. The ascending aorta diameter at the level of the main pulmonary artery is 3.4 cm. The main pulmonary artery diameter at the bifurcation is 3.0 cm. Mild coronary artery calcification is present. IMPRESSION: 1. Stable appearing increased lung markings in the right middle lobe may be some scarring. 2. Mild emphysematous changes. 3. No suspicious interval change [facility], , 03/15/2024 4:19 PM
[2024-03-15] MEDS: AZITHROMYCIN 500 MG in SODIUM CHLORIDE 0.9% 250 ML IVPB SCH (16:30)
[2024-03-15] MEDS: ALBUTEROL NEBULIZED 2.5 MG/3 ML INHALATION PRN (16:46)
[2024-03-15] MEDS: HYDROcodone/APAP 10-325MG 1 EACH TAB PO SCH (17:57)
[2024-03-15] MEDS: SYMBICORT 160-4.5 MCG INHALER INHALATION SCH (20:28)
[2024-03-15] MEDS: SERTRALINE 50 MG TAB PO SCH (20:36)
[2024-03-15] MEDS: ALPRAZolam 0.5 MG TAB PO SCH (20:36)
[2024-03-15] MEDS: lamoTRIgine 100 MG TAB PO SCH (20:36)
--- NOTE | 2024-03-16 01:01 | HP ---
HISTORY AND PHYSICAL HISTORY OF PRESENT ILLNESS: She came into the hospital after having chest pain and tightness at work. She works at a gas station. She had heart burn, came to the hospital, developed some numbness and tingling in the left arm. History of coronary artery disease. She has advanced COPD, nicotine addiction. HOME MEDICATIONS: 1. Biaxin 500 b.i.d. 2. Norvasc 10 daily. 3. Lamictal 100 b.i.d. 4. Xanax 0.5 b.i.d. 5. Zoloft 50 b.i.d. 6. [place] 10 q.i.d. ALLERGIES: To dust. PAST MEDICAL HISTORY: GERD, COPD, chest pain, angina, hearing disorder, deafness, osteoarthritis, respiratory disorder, hypertension. PAST SURGICAL HISTORY: Appendectomy, heart catheterization, hysterectomy, tubal ligation, right lung mass. FAMILY HISTORY: Mother, cancer of the lung. PHYSICAL EXAMINATION: VITAL SIGNS: Temp 98.1, pulse 113, respirations 18 to 20. HEENT: Normocephalic, atraumatic. Pupils equal, round, reactive. CARDIOVASCULAR: S1, S2. LUNGS: Scattered wheeze and rhonchi. PSYCH: Fair mood and affect. NEUROLOGIC: Alert and oriented x3. LABORATORY DATA: Reviewed. Sodium 128, potassium 4.3. ASSESSMENT: Atypical chest pain, chronic obstructive pulmonary disease, pulmonary hypertension. Wait for Cardiology to clear for discharge. Check possibly echo and CT of the chest. Prognosis guarded. MMODL / IJN: [id number] /
[2024-03-16] MEDS ORDERED: DOBUTamine DRIP for NUC MED 500 MG in DEXTROSE/WATER 1 250ML.BAG IV PRN (09:13)
[2024-03-16] MEDS: ASPIRIN 81 MG PO SCH (09:25)
[2024-03-16] MEDS: amLODIPine 10 MG TAB PO SCH (09:25)
--- NOTE | 2024-03-16 09:45 | DS ---
DISCHARGE SUMMARY DISCHARGE MEDICATIONS: 1. Z-Evan. 2. Norvasc 10 mg daily. 3. Xanax 0.5 b.i.d. 4. Tylenol p.r.n. 5. Symbicort 2 puffs b.i.d. 6. [place] 10 q.i.d. 7. Lamictal 100 b.i.d. CONDITION: Stable. PROGNOSIS: Guarded. Ambulate as tolerated. Came in with atypical chest pain. She is cleared from Cardiology. Has negative troponins x3. Her white count is a little elevated. Suspect she possibly had a cause of tracheobronchitis. She has negative D-dimer. Her sodium is 128, potassium 4.3. We are waiting for electrolytes this morning to come back. Possibly she will be discharged if Cardiology clears her. To follow up as an outpatient. Prognosis guarded. Ambulate as tolerated. MMODL / IJN: [id number] /
--- NOTE | 2024-03-16 09:56 | P.CRDCN ---
History of Present Illness Consult date: 03/16/24 Consult reason: chest pain History of present illness: This is a 64-year-old female patient of Dr. Rakesh Mayo with past medical history of splenic infarct, coronary artery disease, hypertension, peripheral vascular disease, family history of premature coronary artery disease, remote history of tobacco use and dependence. We have been asked to evaluate the patient for chest pain. Patient states that on she started having heartburn but it would not go away. She tried some different treatments and it did not seem to get any better and that it felt like somebody was sitting on her chest and a pressure-like sensation. Pain is gone now. Blood pressure 134/84, heart rate 94, pulse ox 93% on room air. -EKG: Sinus tach 105 bpm -Chest x-ray: Unchanged right upper lobe patchy infiltrate. COPD. -CT of the chest revealed scarring, mild chronic changes -Laboratory studies: WBC 14.8, hemoglobin 13.5, platelet count 798. Troponin ne gative x 3. D-dimer 0.53. Sodium 128, potassium 4.3, BUN 20 creatinine 0.5. -Home cardiac medications: Amlodipine 10 mg daily -ASHWIN performed 01/10/2023 in the setting of splenic infarct revealed no intracardiac thrombus, no evidence of shunting and normal LV function. Review Of Systems: At the time of my exam: CONSTITUTIONAL: Denies fever or chills. HEENT: Denies blurred vision, vision changes, or eye pain. Denies hemoptysis CARDIOVASCULAR: Denies chest pain. Denies orthopnea. Denies PND. Denies palpitations RESPIRATORY: Denies shortness of breath. GASTROINTESTINAL: Denies abdominal pain. Denies nausea or vomiting. HEMATOLOGIC: Denies bleeding disorders. GENITOURINARY: Denies any blood in urine. SKIN: Denies puritis. Denies rash. Physical examination: Gen: This is a 64-year-old female in no acute distress VS: reviewed HEENT: Head is atraumatic, normocephalic. Pupils equal, round. Sclerae is anicteric. NECK: Supple. No JVD. LUNGS: Clear to auscultation. No wheezes or rhonchi. No intercostal retractions. HEART: Regular rate and rhythm. No murmur. ABDOMEN: Soft No tenderness. EXTREMITIES: No pedal edema. No calf tenderness. NEUROLOGICAL: Patient is awake, alert and oriented x3. Assessment: Atypical chest pain, acute coronary syndrome ruled out History of splenic infarct Hypertension COPD History of tobacco use and dependence Peripheral vascular disease Plan: Resume patient's home cardiac medications, amlodipine Start patient on atorvastatin 40 mg at bedtime and aspirin 81 mg daily On Monday, obtain dobutamine stress echocardiogram Obtain 2-D echocardiogram and Doppler study to assess cardiac structure and function Further recommendations to follow based upon clinical course Thank you kindly for this consultation. Nurse practitioner note has been reviewed, I agree with documented findings and plan of care. Patient was seen and examined. Past Medical History Past Medical History: Chest Pain / Angina, COPD, GERD/Reflux, Hearing Disorder / Deafness, Hypertension, Osteoarthritis (OA), Respiratory Disorder Additional Past Medical History / Comment(s): Chronic bronchitis, sinus tachycardia, chronic back pain, migraines, bilateral hearing aid use, bilateral tinnitis, diverticulitis - colostomy, O2 3L/min at night, chest pain from anxiety, Rt. lung mass History of Any Multi-Drug Resistant Organisms: None Reported Past Surgical History: Appendectomy, Heart Catheterization, Hysterectomy, Tubal Ligation Additional Past Surgical History / Comment(s): Loop recorder inserted and later removed, Schafer's procedure/colostomy 05/2023, Rt. lung mass removed 09/07/23 Past Anesthesia/Blood Transfusion Reactions: No Reported Reaction Past Psychological History: Anxiety, Depression Additional Psychological History / Comment(s): Pt resides with her spouse. She is independent. She has a nebulizer. Smoking Status: Former smoker Past Alcohol Use History: None Reported Additional Past Alcohol Use History / Comment(s): Started smoking in 1976 and quit 01/05. Smoked 2ppd most of those years. Past Drug Use History: None Reported - Past Family History Brother(s) Family Medical History: Coronary Artery Disease (CAD), Myocardial Infarction ([place]) Additional Family Medical History / Comment(s): [place] in his early 40s, had pacemaker. Sister(s) Family Medical History: Mitral Valve Prolapse (MVP) Father Additional Family Medical History / Comment(s): "Post Op MRSA infection- from complications of that." Mother Family Medical History: Cancer Additional Family Medical History / Comment(s): Lung cancer. Medications and Allergies Home Medications Medication Instructions Recorded Confirmed Type Budesonide-Formot 160-4.5 Mcg 2 puff INHALATION RT-BID #1 unit 12/01/17 03/15/24 Rx [Symbicort 160-4.5 Mcg Inhaler] ALPRAZolam [Xanax] 0.5 mg PO BID 02/08/23 03/15/24 History Sertraline [Zoloft] 50 mg PO BID 09/04/23 03/15/24 History HYDROcodone/APAP 10-325MG [Mcclure 1 tab PO QID 10/20/23 03/15/24 History 10-325] Albuterol Sulfate/Budesonide 2 puff INHALATION RT-Q4H PRN 03/15/24 03/15/24 History [Airsupra 90-80 Mcg Inhaler] Clarithromycin [Biaxin] 500 mg PO BID 03/15/24 03/15/24 History amLODIPine [Norvasc] 10 mg PO DAILY 03/15/24 03/15/24 History lamoTRIgine [LaMICtal] 100 mg PO BID 03/15/24 03/15/24 History Allergies Allergy/AdvReac Type Severity Reaction Status Date / Time dust AdvReac Dyspnea Uncoded 03/15/24 09:48 Physical Exam Vitals: Vital Signs Temp Pulse Pulse Resp BP BP Pulse Ox 03/16/24 08:50 94 16 03/16/24 08:39 94 16 93 L 03/16/24 07:40 98.3 F 96 17 134/84 92 L 03/16/24 02:00 97.6 F 90 17 124/80 96 03/15/24 20:37 75 03/15/24 20:28 74 03/15/24 20:00 97.9 F 96 17 121/78 95 03/15/24 16:57 80 03/15/24 16:40 78 03/15/24 15:00 97.5 F L 96 16 152/89 97 03/15/24 13:48 95 18 117/75 98 03/15/24 11:17 95 20 138/83 97 03/15/24 09:13 98.1 F 113 H 20 134/80 99 Intake and Output 03/15/24 03/16/24 03/16/24 22:59 06:59 14:59 Intake Total 590 Balance 590 Intake: Oral 590 Other: # Voids 1 1 Weight 58.967 kg Results 03/15/24 09:20 03/15/24 09:20 Cardiac Enzymes 03/15/24 03/15/24 03/15/24 Range/Units 09:20 09:20 12:36 AST 27 (14-36) U/L Troponin I <0.012 <0.012 (0.000-0.034) ng/mL 03/15/24 Range/Units 15:44 AST (14-36) U/L Troponin I <0.012 (0.000-0.034) ng/mL Coagulation 03/15/24 Range/Units 09:20 PT 10.0 (10.0-12.5) sec APTT 19.7 L (22.0-30.0) sec CBC 03/15/24 Range/Units 09:20 WBC 14.8 H (3.8-10.6) k/uL RBC 4.52 (3.80-5.40) m/uL Hgb 13.5 (11.4-16.0) gm/dL Hct 41.3 (34.0-46.0) % Plt Count 798 H (150-450) k/uL Comprehensive Metabolic Panel 03/15/24 Range/Units 09:20 Sodium 128 L (137-145) mmol/L Potassium 4.3 (3.5-5.1) mmol/L Chloride 92 L (98-107) mmol/L Carbon Dioxide 25 (22-30) mmol/L BUN 20 H (7-17) mg/dL Creatinine 0.58 (0.52-1.04) mg/dL Glucose 109 H (74-99) mg/dL Calcium 9.6 (8.4-10.2) mg/dL AST 27 (14-36) U/L ALT 28 (4-34) U/L Alkaline Phosphatase 101 (38-126) U/L Total Protein 6.8 (6.3-8.2) g/dL Albumin 4.3 (3.5-5.0) g/dL Current Medications Generic Name Dose Route Start Last Admin Trade Name Freq PRN Reason Stop Dose Admin Acetaminophen 650 mg 03/15/24 11:41 Acetaminophen Tab 325 Mg Tab PO Q6HR PRN Mild Pain or Fever > 100.5 Hydrocodone Bitart/Acetaminophen 1 each 03/15/24 18:00 03/15/24 22:22 Hydrocodone/Apap 10-325mg 1 Each Tab PO 1 each QID MAGALYS Administration Albuterol Sulfate 2.5 mg 03/15/24 15:08 03/16/24 08:39 Albuterol Nebulized 2.5 Mg/3 Ml INHALATION 2.5 mg RT-Q4H PRN Administration Shortness Of Breath Alprazolam 0.5 mg 03/15/24 21:00 03/15/24 20:36 Alprazolam 0.5 Mg Tab PO 0.5 mg BID MAGALYS Administration Amlodipine Besylate 10 mg 03/16/24 09:00 Amlodipine 10 Mg Tab PO DAILY MAGALYS Budesonide/Formoterol Fumarate 2 puff 03/15/24 20:00 03/16/24 08:39 Symbicort 160-4.5 Mcg Inhaler INHALATION 2 puff RT-BID MAGALYS Administration Sodium Chloride 1,000 mls @ 75 mls/hr 03/15/24 11:45 03/16/24 02:10 Saline 0.9% IV 75 mls/hr .[id number] MAGALYS Administration Azithromycin 500 mg/ Sodium 250 mls @ 250 mls/hr 03/15/24 15:15 03/16/24 08:07 Chloride IVPB 03/17/24 09:59 250 mls/hr DAILY MAGALYS Administration Protocol Lamotrigine 100 mg 03/15/24 21:00 03/15/24 20:36 Lamotrigine 100 Mg Tab PO 100 mg BID MAGALYS Administration Morphine Sulfate 4 mg 03/15/24 14:10 03/16/24 08:07 Morphine Sulfate 4 Mg/Ml Syringe IV 4 mg Q3HR PRN Administration Severe Pain (Scale 7 to 10) Naloxone HCl 0.2 mg 03/15/24 11:41 Naloxone 0.4 Mg/Ml 1 Ml Vial IV Q2M PRN Opioid Reversal Ondansetron HCl 4 mg 03/15/24 11:41 Ondansetron 4 Mg/2 Ml Vial IVP Q8HR PRN Nausea And Vomiting Sertraline HCl 50 mg 03/15/24 21:00 03/15/24 20:36 Sertraline 50 Mg Tab PO 50 mg BID MAGALYS Administration Intake and Output 03/15/24 03/16/24 03/16/24 22:59 06:59 14:59 Intake Total 590 Balance 590 Intake: Oral 590 Other: # Voids 1 1 Weight 58.967 kg 03/15/24 09:20 03/15/24 09:20
[2024-03-16 10:08] LABS: Basophils # (A) 0.1 k/uL (0-0.2); Basophils % (A) 1 %; Eosinophils # (A) 0.2 k/uL (0-0.7); Eosinophils % (A) 2 %; HCT 45.1 % (34.0-46.0); Hypochromasia Moderate; Lymphocytes # (A) 2.3 k/uL (1.0-4.8); Lymphocytes % (A) 21 %; MCH 29.6 pg (25.0-35.0); MCHC 31.2 g/dL (31.0-37.0); MCV 95.1 fL (80.0-100.0); Mean Platelet Volume 6.8; Monocytes % (A) 9 %; Neutrophils # (A) 7.3 k/uL (1.3-7.7); Neutrophils % (A) 67 %; Platelet Count 695 k/uL (150-450); RBC 4.74 m/uL (3.80-5.40); RDW 14.6 % (11.5-15.5); WBC 10.9 k/uL (3.8-10.6)
[2024-03-16 10:18] LABS: ALT 26 U/L (4-34); AST 21 U/L (14-36); African American GFR (CKD) >90 (>60 ml/min/1.73 sqM); Albumin/Globulin Ratio 1.7; Alkaline Phosphatase 98 U/L (38-126); Anion Gap 6 mmol/L; Blood Urea Nitrogen 12 mg/dL (7-17); Calcium 9.4 mg/dL (8.4-10.2); Carbon Dioxide 29 mmol/L (22-30); Chloride 94 mmol/L (98-107); Globulin 2.3 g/dL; Glucose 92 mg/dL (74-99); Non-African American GFR(CKD) >90 (>60 ml/min/1.73 sqM); Potassium 4.7 mmol/L (3.5-5.1); Sodium 129 mmol/L (137-145); Total Bilirubin 0.5 mg/dL (0.2-1.3); Total Protein 6.3 g/dL (6.3-8.2)
[2024-03-16] MEDS: ATORVASTATIN 40 MG TAB PO SCH (19:41)
--- NOTE | 2024-03-17 07:22 | CA ---
Transthoracic Echo Report Name: Marisel Cummins Age: 64 Gender: F : 1960 Exam Date: 03/16/2024 13:20 Exam Location: [facility] Ht (in): 67 Wt (lb): 130 Ordering Physician: Adriana Knapp Attending/Referring Phys: [id number], [facility] Clinical Director Jyoti Ohara, CHELSY Procedure CPT: Indications: LVF Cardiac Hx: Technical Quality: Fair Contrast 1: Total Dose (mL): Contrast 2: Total Dose (mL): MEASUREMENTS (Male / Female) Normal Values 2D ECHO LV Diastolic Diameter PLAX 3.9 cm 4.2 - 5.9 / 3.9 - 5.3 cm LV Systolic Diameter PLAX 3.5 cm IVS Diastolic Thickness 1.0 cm 0.6 - 1.0 / 0.6 - 0.9 cm LVPW Diastolic Thickness 1.1 cm 0.6 - 1.0 / 0.6 - 0.9 cm LV Relative Wall Thickness 0.5 RV Internal Dim ED PLAX 3.8 cm LA Systolic Diameter LX 3.4 cm 3.0 - 4.0 / 2.7 - 3.8 cm LA Volume 49.1 cm??? 18 - 58 / 22 - 52 cm??? LA Volume Index 29.5 cm???/m??? 16 - 28 cm???/m??? DOPPLER AV Peak Velocity 133.2 cm/s AV Peak Gradient 7.1 mmHg MV Area PHT 2.6 cm??? Mitral E Point Velocity 76.5 cm/s Mitral A Point Velocity 108.0 cm/s Mitral E to A Ratio 0.7 MV Deceleration Time 288.4 ms TR Peak Velocity 244.6 cm/s TR Peak Gradient 23.9 mmHg Right Ventricular Systolic Press 28.8 mmHg FINDINGS Left Ventricle Left ventricular ejection fraction is estimated at 55-60 %. Left ventricular cavity size normal. Mildly increased septal wall thickness. Mildly increased posterior wall thickness. Right Ventricle Moderate right ventricular dilatation. Right ventricular systolic pressure within normal limits. Right Atrium Normal right atrial size. No right atrial thrombus or mass seen. Left Atrium Mildly increased left atrial volume. No left atrial thrombus or mass present. Mitral Valve Structurally normal mitral valve. No mitral stenosis, regurgitation or prolapse. Aortic Valve Trileaflet aortic valve. No aortic valve stenosis or regurgitation. Tricuspid Valve Structurally normal tricuspid valve. Trace to mild tricuspid regurgitation. Pulmonic Valve Pulmonic valve not well visualized. No pulmonic regurgitation. Pericardium No pericardial mass. Aorta Normal size aortic root and proximal ascending aorta. CONCLUSIONS Diagnosis: Chest discomfort rule out ME LVH with preserved systolic function Prominent pericardial stripe especially posteriorly Likely old/chronic pericarditis Previewed by: Dr. Charan Gomes MD (Electronically Signed) Final Date: 17 March 2024 07:21
[2024-03-17 07:44] VITALS: RESP 16; TEMP 98
--- NOTE | 2024-03-17 08:01 | P.PN ---
Subjective Progress Note Date: 03/17/24 Consult reason: chest pain History of present illness: This is a 64-year-old female patient of Dr. Rakesh Mayo with past medical history of splenic infarct, coronary artery disease, hypertension, peripheral vascular disease, family history of premature coronary artery disease, remote history of tobacco use and dependence. We have been asked to evaluate the patient for chest pain. Patient states that on she started having heartburn but it would not go away. She tried some different treatments and it did not seem to get any better and that it felt like somebody was sitting on her chest and a pressure-like sensation. Pain is gone now. Blood pressure 134/84, heart rate 94, pulse ox 93% on room air. -EKG: Sinus tach 105 bpm -Chest x-ray: Unchanged right upper lobe patchy infiltrate. COPD. -CT of the chest revealed scarring, mild chronic changes -Laboratory studies: WBC 14.8, hemoglobin 13.5, platelet count 798. Troponin negative x 3. D-dimer 0.53. Sodium 128, potassium 4.3, BUN 20 creatinine 0.5. -Home cardiac medications: Amlodipine 10 mg daily -ASHWIN performed 01/10/2023 in the setting of splenic infarct revealed no intracardiac thrombus, no evidence of shunting and normal LV function. 2/2 Patient seen and examined. Patient is scheduled for dobutamine stress echocardiogram tomorrow however patient is not feeling well. She has been started on IV antibiotics. She continues to have chest pain with tenderness. She denies cough but appears to be more ill. For these reasons, the stress test will be canceled and patient may follow-up in the office and have his outpatient stress test done in 2 weeks. Echocardiogram reveals LVH with preserved systolic function. Physical examination: Gen: This is a 64-year-old female in no acute distress VS: reviewed HEENT: Head is atraumatic, normocephalic. Pupils equal, round. Sclerae is anicteric. NECK: Supple. No JVD. LUNGS: Clear to auscultation. No wheezes or rhonchi. No intercostal retractions. HEART: Regular rate and rhythm. No murmur. ABDOMEN: Soft No tenderness. EXTREMITIES: No pedal edema. No calf tenderness. NEUROLOGICAL: Patient is awake, alert and oriented x3. Assessment: Atypical chest pain, acute coronary syndrome ruled out History of splenic infarct Hypertension COPD History of tobacco use and dependence Peripheral vascular disease Plan: Continue patient's home cardiac medications, amlodipine Continue patient on atorvastatin 40 mg at bedtime and aspirin 81 mg daily Cancel dobutamine stress echocardiogram No further cardiac workup at this time. Patient may follow-up in the office in 2 weeks and stress testing will be ordered. Nurse practitioner note has been reviewed, I agree with documented findings and plan of care. Patient was seen and examined. Objective - Vital Signs Vital signs: Vital Signs Temp 98.0 F 03/17/24 07:00 Pulse 100 03/17/24 07:00 Resp 16 03/17/24 07:00 BP 116/81 03/17/24 07:00 Pulse Ox 93 L 03/17/24 07:00 FiO2 Intake & Output 03/16/24 03/17/24 03/17/24 18:59 06:59 18:59 Intake Total 658 Balance 658 Intake: Oral 658 Other: # Voids 6 2 # Bowel Movements 0 - Labs CBC & Chem 7: 03/16/24 09:43 03/16/24 09:43 Labs: Abnormal Lab Results - Last 24 Hours (Table) 03/16/24 03/16/24 Range/Units 09:43 09:43 WBC 10.9 H (3.8-10.6) k/uL Plt Count 695 H (150-450) k/uL Sodium 129 L (137-145) mmol/L Chloride 94 L (98-107) mmol/L Creatinine 0.49 L (0.52-1.04) mg/dL
[2024-03-17 14:58] VITALS: BP 111/66; PULSE 101
== END 2024-03-17 15:26 | disposition home or self-care (01) ==
LOC: EC 09:08 → 6NMEDSUR 11:41
PROVIDERS: ADMIT Family Medicine; ATTEND Family Medicine
DX: R07.89 Other chest pain (principal); J42 Unspecified chronic bronchitis; I73.9 Peripheral vascular disease, unspecified; I27.20 Pulmonary hypertension, unspecified; K21.9 Gastro-esophageal reflux disease without esophagitis; I10 Essential (primary) hypertension; F41.9 Anxiety disorder, unspecified; F32.A Depression, unspecified; I25.10 Atherosclerotic heart disease of native coronary artery without angina pectoris; Z87.891 Personal history of nicotine dependence; Z79.51 Long term (current) use of inhaled steroids; Z79.899 Other long term (current) drug therapy; Z82.49 Family history of ischemic heart disease and other diseases of the circulatory system
CPT/HCPCS: 96376 ×3; 96365 ×2; 96366 ×2; 96375; 99285; 36415; 94640 ×6; 94760 ×2; 93005; 93306; 85379; 80053 ×2; 83690; 83735; 84484; 85025 ×2; 85610; 85730; 71046; 71250; G0378 ×3; J2270 ×3; J0456 ×3; J1171

== ENCOUNTER 2024-03-24 17:21 | Inpatient (IN) | payer OTHER ==
[2024-03-24] MEDS: IPRATROPIUM-ALBUTEROL 3 ML NEB INHALATION STA (17:44)
[2024-03-24] MEDS: methylPREDNISolone SOD SUCCI 125 MG/2 ML VIAL IV STA (17:50)
[2024-03-24] MEDS: MAGNESIUM SULFATE-D5W PMX 1 GM in DEXTROSE/WATER 1 100ML.BAG IVPB STA (18:00)
[2024-03-24 18:06] LABS: Basophils # (A) 0.1 k/uL (0-0.2); Basophils % (A) 0 %; Eosinophils # (A) 0.2 k/uL (0-0.7); Eosinophils % (A) 1 %; HCT 44.6 % (34.0-46.0); HGB 14.5 gm/dL (11.4-16.0); Hypochromasia Slight; Lymphocytes # (A) 1.3 k/uL (1.0-4.8); Lymphocytes % (A) 9 %; MCH 30.4 pg (25.0-35.0); MCHC 32.5 g/dL (31.0-37.0); MCV 93.5 fL (80.0-100.0); Mean Platelet Volume 6.8; Monocytes # (A) 0.9 k/uL (0-1.0); Monocytes % (A) 6 %; Neutrophils # (A) 11.3 k/uL (1.3-7.7); Neutrophils % (A) 82 %; Platelet Count 507 k/uL (150-450); RBC 4.77 m/uL (3.80-5.40); RDW 15.5 % (11.5-15.5); WBC 13.7 k/uL (3.8-10.6)
--- NOTE | 2024-03-24 18:14 | XR ---
EXAMINATION TYPE: XR chest 1V portable DATE OF EXAM: 03/24/2024 6:08 PM COMPARISON: CT chest study 03/15/2024. CLINICAL INDICATION: Female, 64 years old with history of sob; [facility] TECHNIQUE: XR chest 1V portable Frontal view of the chest. FINDINGS: Lungs/Pleura: There is no evidence of pleural effusion, focal consolidation, or pneumothorax. Chroni c focal region of scarring and bronchiectasis in the right upper lobe again visualized. Pulmonary vascularity: Unremarkable. Heart/mediastinum: Cardiomediastinal silhouette is unremarkable. Musculoskeletal: No acute osseous pathology. Other findings: None IMPRESSION: 1. No acute cardiopulmonary disease/process. 2. Findings compatible with emphysema. [facility], , 03/24/2024 6:12 PM
[2024-03-24 18:25] LABS: ALT 23 U/L (4-34); AST 26 U/L (14-36); African American GFR (CKD) >90 (>60 ml/min/1.73 sqM); Albumin 4.2 g/dL (3.5-5.0); Alkaline Phosphatase 123 U/L (38-126); Anion Gap 7 mmol/L; Blood Urea Nitrogen 12 mg/dL (7-17); Calcium 9.4 mg/dL (8.4-10.2); Carbon Dioxide 31 mmol/L (22-30); Chloride 91 mmol/L (98-107); Glucose 105 mg/dL (74-99); Non-African American GFR(CKD) >90 (>60 ml/min/1.73 sqM); Potassium 4.3 mmol/L (3.5-5.1); Sodium 129 mmol/L (137-145); Total Bilirubin 0.5 mg/dL (0.2-1.3); Total Protein 6.8 g/dL (6.3-8.2)
[2024-03-24 18:31] LABS: INR 0.9 (<1.2); Prothrombin Time 9.8 sec (10.0-12.5)
[2024-03-24 18:34] LABS: NT-Pro-B-Type Natriuretic Pept 177 pg/mL
[2024-03-24 18:41] LABS: Partial Thromboplastin Time 21.8 sec (22.0-30.0)
[2024-03-24 18:50] LABS: Influenza A Not Detected (Not Detectd); Influenza B Not Detected (Not Detectd); RSV Detected (Not Detectd)
[2024-03-24] MEDS: MORPHINE SULFATE 4 MG/ML SYRINGE IVP STA (18:55)
[2024-03-24] MEDS ORDERED: NALOXONE 0.4 MG/ML 1 ML VIAL IV PRN (19:34)
--- NOTE | 2024-03-24 19:34 | ED ---
SOB HPI - General Chief Complaint: Shortness of Breath Stated Complaint: MARINA Time Seen by Provider: 03/24/24 17:30 Source: patient Mode of arrival: wheelchair Limitations: no limitations - History of Present Illness Initial Comments: 64-year-old female presents emergency department reporting shortness of breath. Patient presents complaining of shortness of breath for the past couple of days. She does have a history of COPD. Upon arrival patient was 80% on room air. She was placed on a nonrebreather. She typically does wear oxygen at home however this is only at nighttime as she wears 3 L. She reports 2 recent fevers chills and cough. Denies sick contacts. No chest pain or history of heart diseas. No other alleviating, precipitating modifying factors - Related Data Home Medications Medication Instructions Recorded Confirmed ALPRAZolam [Xanax] 0.5 mg PO BID 02/08/23 03/25/24 Sertraline [Zoloft] 50 mg PO BID 09/04/23 03/25/24 HYDROcodone/APAP 10-325MG [[place] 1 tab PO QID 10/20/23 03/25/24 10-325] Albuterol Sulfate/Budesonide 2 puff INHALATION RT-Q4H PRN 03/15/24 03/25/24 [Airsupra 90-80 Mcg Inhaler] amLODIPine [Norvasc] 10 mg PO DAILY 03/15/24 03/25/24 lamoTRIgine [LaMICtal] 100 mg PO BID 03/15/24 03/25/24 Cefdinir [Omnicef] 300 mg PO BID 03/25/24 03/25/24 Ipratropium-Albuterol Nebulize 3 ml INHALATION RT-QID 03/25/24 03/25/24 [Duoneb 0.5 mg-3 mg/3 ml Soln] methylPREDNISolone [Medrol Dose See Taper PO DIRECTED 03/25/24 03/25/24 Pack] Previous Rx's Medication Instructions Recorded Budesonide-Formot 160-4.5 Mcg 2 puff INHALATION RT-BID #1 unit 12/01/17 [Symbicort 160-4.5 Mcg Inhaler] Allergies Allergy/AdvReac Type Severity Reaction Status Date / Time dust Allergy Dyspnea/Sneezing/Runny Uncoded 03/25/24 10:39 Eyes Review of Systems ROS Statement: Those systems with pertinent positive or pertinent negative responses have been documented in the HPI. ROS Other: All systems not noted in ROS Statement are negative. Past Medical History Past Medical History: Chest Pain / Angina, COPD, GERD/Reflux, Hearing Disorder / Deafness, Hypertension, Osteoarthritis (OA), Respiratory Disorder Additional Past Medical History / Comment(s): Chronic bronchitis, sinus tachycardia, chronic back pain, migraines, bilateral hearing aid use, bilateral tinnitis, diverticulitis - colostomy, O2 3L/min at night, chest pain from anxiet y, Rt. lung mass History of Any Multi-Drug Resistant Organisms: None Reported Past Surgical History: Appendectomy, Heart Catheterization, Hysterectomy, Tubal Ligation Additional Past Surgical History / Comment(s): Loop recorder inserted and later removed, Schafer's procedure/colostomy 05/2023, Rt. lung mass removed 09/07/23 Past Anesthesia/Blood Transfusion Reactions: No Reported Reaction Past Psychological History: Anxiety, Depression Smoking Status: Former smoker Past Alcohol Use History: None Reported Past Drug Use History: None Reported - Past Family History Brother(s) Family Medical History: Coronary Artery Disease (CAD), Myocardial Infarction ([place]) Additional Family Medical History / Comment(s): [place] in his early 40s, had pacemaker. Sister(s) Family Medical History: Mitral Valve Prolapse (MVP) Father Additional Family Medical History / Comment(s): "Post Op MRSA infection- from complications of that." Mother Family Medical History: Cancer Additional Family Medical History / Comment(s): Lung cancer. General Exam Limitations: no limitations General appearance: alert, in distress Head exam: Present: atraumatic, normocephalic, normal inspection Eye exam: Present: normal appearance, PERRL, EOMI. Absent: scleral icterus, conjunctival injection, periorbital swelling ENT exam: Present: normal exam, mucous membranes moist Neck exam: Present: normal inspection. Absent: tenderness, meningismus, lymphadenopathy Respiratory exam: Present: respiratory distress, wheezes, accessory muscle use, decreased breath sounds Cardiovascular Exam: Present: tachycardia GI/Abdominal exam: Present: soft, normal bowel sounds. Absent: distended, tenderness, guarding, rebound, rigid Course Vital Signs 03/24/24 03/24/24 03/24/24 17:22 17:32 17:44 Temperature 97.4 F L Pulse Rate 116 H 118 H Respiratory 30 H 20 Rate Blood Pressure 142/96 O2 Sat by Pulse 81 L Oximetry 03/24/24 03/24/24 03/24/24 17:54 18:38 19:04 Temperature Pulse Rate 118 H 106 H 111 H Respiratory 22 19 Rate Blood Pressure 122/73 122/73 O2 Sat by Pulse 99 99 Oximetry 03/24/24 03/24/24 03/24/24 20:52 21:03 21:07 Temperature Pulse Rate 116 H 106 H 106 H Respiratory 18 20 22 Rate Blood Pressure 145/95 144/79 O2 Sat by Pulse 95 96 Oximetry 03/24/24 21:13 Temperature Pulse Rate 107 H Respiratory 20 Rate Blood Pressure O2 Sat by Pulse Oximetry Medical Decision Making - Medical Decision Making Was pt. sent in by a medical professional or institution (, PA, LEVEL [employer]IAL CURV[employer] GAUGER, urgent care, hospital, or [place] health care facility...) When possible be specific @ -No Did you speak to anyone other than the patient for history (EMS, parent, family, police, friend...)? What history was obtained from this source @ -No Did you review nursing and triage notes (agree or disagree)? Why? @ -I reviewed and agree with nursing and triage notes Were old charts reviewed (outside hosp., previous admission, EMS record, old EKG, old radiological studies, urgent care reports/EKG's, [place] health care facility records)? Report findings @ -No old charts were reviewed Differential Diagnosis (chest pain, altered mental status, abdominal pain women, abdominal pain men, vaginal bleeding, weakness, fever, dyspnea, syncope, headache, dizziness, GI bleed, back pain, seizure, CVA, palpatations, mental health, musculoskeletal)? @ -Differential Dyspnea: Coronary syndrome, arrhythmia, tamponade, asthma, COPD, pulmonary embolism, pneumonia, pneumothorax, pulmonary effusion, anaphylaxis, diabetic ketoacidosis, flailed chest, pulmonary contusion, diaphragmatic rupture, anemia, neuromuscular, this is not meant to be an all-inclusive list. EKG interpreted by me (3pts min.). @ -Yes and demonstrates sinus tachycardia with a rate of 123. OK interval 127. QRS 93. QTc of 372. No acute ST segment elevations or depressions X-rays interpreted by me (1pt min.). @ -Yes and demonstrates emphysema CT interpreted by me (1pt min.). @ -None done U/S interpreted by me (1pt. min.). @ -None done What testing was considered but not performed or refused? (CT, X-rays, U/S, labs)? Why? @ -None What meds were considered but not given or refused? Why? @ -None Did you discuss the management of the patient with other professionals (professionals i.e. Dr., PA, LEV[employer] VIAL CURVATURE GAUGER, lab, RT, psych nurse, social studies department chair, art historian, teacher, compliance review officer, heel caser)? Give summary @ -Spoke with Dr. Simmons who will admit the patient Was smoking cessation discussed for >3mins.? @ -No Was critical care preformed (if so, how long)? @ -Yes, 35 minutes for management of hypoxic respiratory failure Were there social determinants of health that impacted care today? How? (Homelessness, low income, unemployed, alcoholism, drug addiction, transportation, low edu. Level, literacy, decrease access to med. care, [facility], rehab)? @ -No Was there de-escalation of care discussed even if they declined (Discuss DNR or withdrawal of care, Hospice)? DNR status @ -No What co-morbidities impacted this encounter? (DM, HTN, Smoking, COPD, CAD, Cancer, CVA, ARF, Chemo, Hep., AIDS, mental health diagnosis, sleep apnea, morbid obesity)? @ -COPD Was patient admitted / discharged? Hospital course, mention meds given and route, prescriptions, significant lab abnormalities, going to OR and other pertinent info. @ -Upon arrival patient placed into trauma 1. Thorough history and physical exam was performed. Patient is hypoxic and therefore placed on a nonrebreather. Will be is established. Laboratory studies are conducted. Chest x-ray was performed. Patient test positive for RSV. Patient has COPD exacerbation. Recommended admission. Spoke with Dr. simmons for the admission Undiagnosed new problem with uncertain prognosis? @ -No Drug Therapy requiring intensive monitoring for toxicity (Heparin, Nitro, Insulin, Cardizem)? @ -No Were any procedures done? @ -No Diagnosis/symptom? @ -Acute hypoxic respiratory failure, acute RSV infection, acute COPD exacerbation Acute, or Chronic, or Acute on Chronic? @ -Acute on chronic Uncomplicated (without systemic symptoms) or Complicated (systemic symptoms)? @ -Complicated Side effects of treatment? @ -No Exacerbation, Progression, or Severe Exacerbation? @ -Yes Poses a threat to life or bodily function? How? (Chest pain, USA, CT, pneumonia, PE, COPD, DKA, ARF, appy, cholecystitis, CVA, Diverticulitis, Homicidal, Suicidal, threat to staff... and all critical care pts) @ -Yes as patient is hypoxic - Lab Data Result diagrams: 03/29/24 04:07 03/31/24 03:44 Lab Results 03/24/24 03/24/24 03/24/24 Range/Units 17:53 17:53 17:53 WBC 13.7 H (3.8-10.6) k/uL RBC 4.77 (3.80-5.40) m/uL Hgb 14.5 (11.4-16.0) gm/dL Hct 44.6 (34.0-46.0) % MCV 93.5 (80.0-100.0) fL MCH 30.4 (25.0-35.0) pg MCHC 32.5 (31.0-37.0) g/dL RDW 15.5 (11.5-15.5) % Plt Count 507 H (150-450) k/uL MPV 6.8 Neutrophils % 82 % Lymphocytes % 9 % Monocytes % 6 % Eosinophils % 1 % Basophils % 0 % Neutrophils # 11.3 H (1.3-7.7) k/uL Lymphocytes # 1.3 (1.0-4.8) k/uL Monocytes # 0.9 (0-1.0) k/uL Eosinophils # 0.2 (0-0.7) k/uL Basophils # 0.1 (0-0.2) k/uL Hypochromasia Slight PT 9.8 L (10.0-12.5) sec INR 0.9 (<1.2) APTT 21.8 L (22.0-30.0) sec Sodium 129 L (137-145) mmol/L Potassium 4.3 (3.5-5.1) mmol/L Chloride 91 L (98-107) mmol/L Carbon Dioxide 31 H (22-30) mmol/L Anion Gap 7 mmol/L BUN 12 (7-17) mg/dL Creatinine 0.49 L (0.52-1.04) mg/dL Est GFR (CKD-EPI)AfAm >90 (>60 ml/min/1.73 sqM) Est GFR (CKD-EPI)NonAf >90 (>60 ml/min/1.73 sqM) Glucose 105 H (74-99) mg/dL Plasma Lactic Acid Dio (0.7-2.0) mmol/L Calcium 9.4 (8.4-10.2) mg/dL Total Bilirubin 0.5 (0.2-1.3) mg/dL AST 26 (14-36) U/L ALT 23 (4-34) U/L Alkaline Phosphatase 123 (38-126) U/L Troponin I (0.000-0.034) ng/mL NT-Pro-B Natriuret Pep 177 pg/mL Total Protein 6.8 (6.3-8.2) g/dL Albumin 4.2 (3.5-5.0) g/dL Influenza Type A (PCR) (Not Detectd) Influenza Type B (PCR) (Not Detectd) RSV (PCR) (Not Detectd) SARS-CoV-2 (PCR) (Not Detectd) 03/24/24 03/24/24 03/24/24 Range/Units 17:53 17:53 17:53 WBC (3.8-10.6) k/uL RBC (3.80-5.40) m/uL Hgb (11.4-16.0) gm/dL Hct (34.0-46.0) % MCV (80.0-100.0) fL MCH (25.0-35.0) pg MCHC (31.0-37.0) g/dL RDW (11.5-15.5) % Plt Count (150-450) k/uL MPV Neutrophils % % Lymphocytes % % Monocytes % % Eosinophils % % Basophils % % Neutrophils # (1.3-7.7) k/uL Lymphocytes # (1.0-4.8) k/uL Monocytes # (0-1.0) k/uL Eosinophils # (0-0.7) k/uL Basophils # (0-0.2) k/uL Hypochromasia PT (10.0-12.5) sec INR (<1.2) APTT (22.0-30.0) sec Sodium (137-145) mmol/L Potassium (3.5-5.1) mmol/L Chloride (98-107) mmol/L Carbon Dioxide (22-30) mmol/L Anion Gap mmol/L BUN (7-17) mg/dL Creatinine (0.52-1.04) mg/dL Est GFR (CKD-EPI)AfAm (>60 ml/min/1.73 sqM) Est GFR (CKD-EPI)NonAf (>60 ml/min/1.73 sqM) Glucose (74-99) mg/dL Plasma Lactic Acid Dio 0.9 (0.7-2.0) mmol/L Calcium (8.4-10.2) mg/dL Total Bilirubin (0.2-1.3) mg/dL AST (14-36) U/L ALT (4-34) U/L Alkaline Phosphatase (38-126) U/L Troponin I <0.012 (0.000-0.034) ng/mL NT-Pro-B Natriuret Pep pg/mL Total Protein (6.3-8.2) g/dL Albumin (3.5-5.0) g/dL Influenza Type A (PCR) Not Detected (Not Detectd) Influenza Type B (PCR) Not Detected (Not Detectd) RSV (PCR) Detected A (Not Detectd) SARS-CoV-2 (PCR) Not Detected (Not Detectd) Disposition Clinical Impression: COPD with acute exacerbation, RSV bronchitis, Hypoxia Disposition: ADMITTED IP TO THIS [facility] Condition: Serious Is patient prescribed a controlled substance at d/c from ED?: No Time of Disposition: 19:33 Decision to Admit Reason: Admit from EC Decision Date: 03/24/24 Decision Time: 19:33
[2024-03-24] MEDS: MORPHINE SULFATE 4 MG/ML SYRINGE IV PRN (20:49)
[2024-03-24] MEDS: IPRATROPIUM-ALBUTEROL 3 ML NEB INHALATION SCH (21:07)
[2024-03-24] MEDS: HYDROcodone/APAP 10-325MG 1 EACH TAB PO SCH (22:56)
[2024-03-24] MEDS: HEPARIN SODIUM,PORCINE 5,000 UNIT/ML 1 ML VIAL SQ SCH (22:57)
[2024-03-24] MEDS: SODIUM CHLORIDE 0.9% 1,000 ML IV SCH (22:57)
[2024-03-25] MEDS: BUDESONIDE 0.5 MG/2 ML NEBU INHALATION SCH (06:09)
[2024-03-25] MEDS: IPRATROPIUM-ALBUTEROL 3 ML NEB INHALATION SCH (06:09)
--- NOTE | 2024-03-25 07:40 | HP ---
HISTORY AND PHYSICAL HISTORY OF PRESENT ILLNESS: A 64-year-old white female, came in with positive RSV and COPD exacerbation on top of really bad COPD respiratory distress. HOME MEDICATIONS: 1. Xanax 0.5 b.i.d. 2. Zoloft 50 b.i.d. 3. [place] 10 q.i.d. 4. Airsupra 2 puffs q.4 hours. 5. Norvasc 10 mg daily. 6. Lamictal 100 b.i.d. 7. Biaxin 500 b.i.d. 8. DuoNeb b.i.d. 9. Symbicort 2 puffs b.i.d. REVIEW OF SYSTEMS: 14-point review of systems otherwise is negative. PAST MEDICAL HISTORY: Chest pain, angina, COPD, GERD, , hypertension, osteoarthritis, respiratory disorder, chronic bronchitis, migraines, diverticulitis, colostomy, chest pain from anxiety or lung mass. PAST SURGICAL HISTORY: Appendectomy, cardiac catheterization, hysterectomy, tubal ligation, right lung mass removed, loop recorder, Lamont's pouch . FAMILY HISTORY: See old chart. PHYSICAL EXAMINATION: VITAL SIGNS: Temperature 97.4, pulse 116 to 118, respiratory rate 20 to 30, blood pressure 142/96, and O2 saturation 81%. CARDIOVASCULAR: S1 and S2. LUNGS: Scattered rhonchi and wheeze. GI: Soft. HEMATOLOGY: Negative Homans'. PSYCH: Fair mood and affect. She is positive for RSV. White count 13.7, platelets 507. Sodium 129, BUN 12, creatinine 0.49. Plasma lactic acid 0.4. ASSESSMENT: 1. RSV pneumonia. 2. Chronic obstructive pulmonary disease exacerbation. 3. Acute on chronic hypoxemic respiratory failure. 4. Tachycardia . 5. Anxiety, depression. 6. Chest pain. 7. Osteoarthritis. consult Pulmonary and Infectious Disease. Prognosis is guarded. MMODL / IJN: [id number] /
[2024-03-25] MEDS: lamoTRIgine 100 MG TAB PO SCH (08:31)
[2024-03-25] MEDS: ALPRAZolam 0.5 MG TAB PO SCH (08:31)
[2024-03-25] MEDS: amLODIPine 10 MG TAB PO SCH (08:31)
[2024-03-25] MEDS: methylPREDNISolone SOD SUCCI 40 MG/ML 1 ML VIAL IV SCH (08:31)
[2024-03-25] MEDS: SERTRALINE 50 MG TAB PO SCH (08:31)
[2024-03-25 08:44] LABS: ALT 20 U/L (8-44); AST 20 U/L (13-35); Albumin 3.9 g/dL (3.8-4.9); Albumin/Globulin Ratio 1.95 Ratio (1.60-3.17); Alkaline Phosphatase 113 U/L (41-126); Blood Urea Nitrogen 13.8 mg/dL (9.0-27.0); Carbon Dioxide 28.8 mmol/L (21.6-31.8); Chloride 93 mmol/L (96-109); Glucose 129 mg/dL (70-110); Potassium 4.7 mmol/L (3.5-5.5); Sodium 132 mmol/L (135-145); Total Bilirubin <0.2 mg/dL (0.3-1.2); Total Protein 5.9 g/dL (6.2-8.2)
[2024-03-25 08:49] LABS: Basophils # (A) 0.04 X 10*3/uL (0.00-0.10); Basophils % (A) 0.5 %; Eosinophils # (A) 0 X 10*3/uL (0.04-0.35); Eosinophils % (A) 0 %; HCT 40.3 % (37.2-46.3); HGB 12.6 g/dL (12.0-15.0); Lymphocytes % (A) 3.6 %; MCH 29.5 pg (27.0-32.0); MCHC 31.3 g/dL (32.0-37.0); MCV 94.4 FL (80.0-97.0); Mean Platelet Volume 9.7 FL (9.5-12.2); Monocytes # (A) 0.09 X 10*3/uL (0.20-1.00); Monocytes % (A) 1.1 %; NRBC Per 100 WBC 0 X 10*3/uL (0.00-0.01); Neutrophils # (A) 7.77 X 10*3/uL (1.80-7.70); Platelet Count 413 X 10*3/uL (140-440); RBC 4.27 X 10*6/uL (4.10-5.20); WBC 8.35 X 10*3/uL (4.50-10.00)
--- NOTE | 2024-03-25 11:58 | P.CNPUL ---
History of Present Illness Consult date: 03/25/24 Reason for consult: dyspnea, cough, hypoxemia, pneumonia Chief complaint: Increasing shortness of breath cough History of present illness: 64-year-old female with end-stage COPD and history of lung cancer status post lobectomy patient presented emergency department increasing shortness of breath for 2 to 3 days along with cough congestion very weak not feeling well severe dyspnea on minimal activity and exertion. On arrival she was hypoxic on room air requiring BiPAP support but now tapered down to 6 L. On arrival WBC count 13.7, thrombocytosis present, coags were okay, labs are significant for hyponatremia sodium 129, BUN/creatinine was within normal limit 12/0.49 chemistry otherwise fairly within normal limit, influenza A as well as influenza B were negative, COVID was negative however came back positive for RSV PCR currently patient is being continued on her home medicine including antianxiety and antihypertensive along with DVT prophylaxis, IV steroids and continuation of her Lamictal patient is on Pulmicort as well. Chest x-ray interstitial infiltrate Review of Systems All systems: negative Past Medical History Past Medical History: Chest Pain / Angina, COPD, GERD/Reflux, Hearing Disorder / Deafness, Hypertension, Osteoarthritis (OA), Respiratory Disorder Additional Past Medical History / Comment(s): Chronic bronchitis, sinus tachycardia, chronic back pain, migraines, bilateral hearing aid use, bilateral tinnitis, diverticulitis - colostomy, O2 3L/min at night, chest pain from anxie ty, Rt. lung mass History of Any Multi-Drug Resistant Organisms: None Reported Past Surgical History: Appendectomy, Heart Catheterization, Hysterectomy, Tubal Ligation Additional Past Surgical History / Comment(s): Loop recorder inserted and later removed, Schafer's procedure/colostomy 05/2023, Rt. lung mass removed 09/07/23 Past Anesthesia/Blood Transfusion Reactions: No Reported Reaction Past Psychological History: Anxiety, Depression Additional Psychological History / Comment(s): Pt resides with her spouse. She is independent. She has a nebulizer. Smoking Status: Former smoker Past Alcohol Use History: None Reported Additional Past Alcohol Use History / Comment(s): Started smoking in 1976 and quit 01/05. Smoked 2ppd most of those years. Past Drug Use History: None Reported - Past Family History Brother(s) Family Medical History: Coronary Artery Disease (CAD), Myocardial Infarction ([place]) Additional Family Medical History / Comment(s): [place] in his early 40s, had pacemaker. Sister(s) Family Medical History: Mitral Valve Prolapse (MVP) Father Additional Family Medical History / Comment(s): "Post Op MRSA infection- from complications of that." Mother Family Medical History: Cancer Additional Family Medical History / Comment(s): Lung cancer. Medications and Allergies Home Medications Medication Instructions Recorded Confirmed Type Budesonide-Formot 160-4.5 Mcg 2 puff INHALATION RT-BID #1 unit 12/01/17 03/25/24 Rx [Symbicort 160-4.5 Mcg Inhaler] ALPRAZolam [Xanax] 0.5 mg PO BID 02/08/23 03/25/24 History Sertraline [Zoloft] 50 mg PO BID 09/04/23 03/25/24 History HYDROcodone/APAP 10-325MG [[place] 1 tab PO QID 10/20/23 03/25/24 History 10-325] Albuterol Sulfate/Budesonide 2 puff INHALATION RT-Q4H PRN 03/15/24 03/25/24 History [Airsupra 90-80 Mcg Inhaler] amLODIPine [Norvasc] 10 mg PO DAILY 03/15/24 03/25/24 History lamoTRIgine [LaMICtal] 100 mg PO BID 03/15/24 03/25/24 History Cefdinir [Omnicef] 300 mg PO BID 03/25/24 03/25/24 History Ipratropium-Albuterol Nebulize 3 ml INHALATION RT-QID 03/25/24 03/25/24 History [Duoneb 0.5 mg-3 mg/3 ml Soln] methylPREDNISolone [Medrol Dose See Taper PO DIRECTED 03/25/24 03/25/24 History Pack] Allergies Allergy/AdvReac Type Severity Reaction Status Date / Time dust Allergy Dyspnea/Sneezing/Runny Uncoded 03/25/24 10:39 Eyes Physical Exam Vitals: Vital Signs Temp Pulse Pulse Resp BP BP Pulse Ox 03/25/24 10:45 92 03/25/24 10:35 92 03/25/24 07:45 98.6 F 101 H 18 133/84 98 03/25/24 06:21 89 03/25/24 06:09 92 03/25/24 04:02 99 03/25/24 04:00 96 03/25/24 03:53 95 03/25/24 01:48 98.0 F 106 H 23 150/81 98 03/24/24 23:44 102 H 03/24/24 23:33 98 03/24/24 21:26 97.9 F 111 H 23 138/83 94 L 03/24/24 21:13 107 H 20 03/24/24 21:07 106 H 22 03/24/24 21:03 106 H 20 144/79 96 03/24/24 20:52 116 H 18 145/95 95 03/24/24 19:04 111 H 19 122/73 99 03/24/24 18:38 106 H 22 122/73 99 03/24/24 17:54 118 H 03/24/24 17:44 118 H 03/24/24 17:32 20 03/24/24 17:22 97.4 F L 116 H 30 H 142/96 81 L Intake and Output 03/24/24 03/25/24 03/25/24 22:59 06:59 14:59 Other: # Voids 3 1 Weight 58.967 kg - Constitutional General appearance: average body habitus, cooperative, disheveled, mild distress - EENT Eyes: EOMI Ears: bilateral: normal - Neck Carotids: bilateral: upstroke normal Thyroid: negative: normal size - Respiratory Respiratory: bilateral: diminished, wheezing - Cardiovascular Rhythm: regular Heart sounds: normal: S1, S2 - Gastrointestinal General gastrointestinal: normal bowel sounds - Integumentary Integumentary: normal turgor - Neurologic Neurologic: CNII-XII intact - Musculoskeletal Musculoskeletal: gait normal, generalized weakness, strength equal bilaterally - Psychiatric Psychiatric: A&O x's 3, appropriate affect, intact judgment & insight Results - Laboratory Findings CBC and BMP: 03/25/24 03:43 03/25/24 03:43 PT/INR, D-dimer PT 9.8 sec (10.0-12.5) L 03/24/24 17:53 INR 0.9 (<1.2) 03/24/24 17:53 Abnormal lab findings: Abnormal Labs 03/24/24 03/24/24 03/24/24 17:53 17:53 17:53 WBC 13.7 H MCHC RDW Plt Count 507 H Immature Gran # Neutrophils # 11.3 H Lymphocytes # Monocytes # Eosinophils # PT 9.8 L APTT 21.8 L Sodium 129 L Chloride 91 L Carbon Dioxide 31 H Creatinine 0.49 L BUN/Creatinine Ratio Glucose 105 H Total Bilirubin Total Protein RSV (PCR) 03/24/24 03/25/24 03/25/24 17:53 03:43 03:43 WBC MCHC 31.3 L RDW 16.0 H Plt Count Immature Gran # 0.15 H Neutrophils # 7.77 H Lymphocytes # 0.30 L Monocytes # 0.09 L Eosinophils # 0 L PT APTT Sodium 132 L Chloride 93 L Carbon Dioxide Creatinine 0.5 L BUN/Creatinine Ratio 27.60 H Glucose 129 H Total Bilirubin <0.2 L Total Protein 5.9 L RSV (PCR) Detected A - Diagnostic Findings Chest x-ray: report reviewed, image reviewed Assessment and Plan Assessment: Acute hypoxic respiratory failure due to viral bronchitis Viral bronchitis related to RSV Acute COPD exacerbation Hypertension hypertensive cardiovascular disease Generalized anxiety disorder History of lung cancer status post lobectomy Plan: Continue bronchodilator and inhaled aerosolized steroids Continue IV steroids Continue supportive care Continue supplemental oxygen titrate oxygen down as tolerated keeping saturation of 94% Patient being continued on antihypertensive agents Norvasc Continue antianxiety medicine antidepressant Patient has been following oncology with last CT scan surveillance no mass was noted Patient is high risk for DVT PE, will check D-dimer if elevated will get duplex ultrasound of both lower extremity as well as CTA chest Time with Patient: Greater than 30
[2024-03-25] MEDS: HYDROmorphone 1 MG/ML 1 ML SYRINGE IM PRN (19:59)
[2024-03-25] MEDS: HYDROmorphone 1 MG/ML 1 ML SYRINGE IVP PRN (23:45)
--- NOTE | 2024-03-26 08:37 | P.CONS ---
History of Present Illness - Reason for Consult Consult date: 03/25/24 RSV Requesting physician: Clemente Gongora - Chief Complaint Shortness of breath and cough x 3 days - History of Present Illness Patient is a 64-year-old female with a past medical history significant for COPD, lung cancer status post lobectomy hypertension osteoar thritis and hearing disorder patient has been brought into the hospital for evaluation of increasing shortness of breath that apparently has been getting worse for the last 2 to 3 days before presentation to the hospital patient is also complaining of cough which has been moderate intensity with occasional sputum production. Denies having any pleuritic chest pain and has been progressive getting worse with the symptoms the patient has been brought into the hospital on arrival to the ER the patient was afebrile no fever have been called subsequently patient was tachycardic but not hypotensive she is hypoxic currently on 6 L current oxygen did have white count 13.7 with a left shift creatinine 0.49 liver isms are normal patient did tested positive for RSV COVID influenza was negative patient did have a chest x-ray no acute cardiopulmonary disease process did have emphysema patient was admitted to hospital infectious disease was consulted for further management Review of Systems Positive point and negatives has been mentioned in the HPI, complete review of systems was performed and all other systems are negative Past Medical History Past Medical History: Chest Pain / Angina, COPD, GERD/Reflux, Hearing Disorder / Deafness, Hypertension, Osteoarthritis (OA), Respiratory Disorder Additional Past Medical History / Comment(s): Chronic bronchitis, sinus tachycardia, chronic back pain, migraines, bilateral hearing aid use, bilateral tinnitis, diverticulitis - colostomy, O2 3L/min at night, chest pain from anxiety, Rt. lung mass History of Any Multi-Drug Resistant Organisms: None Reported Past Surgical History: Appendectomy, Heart Catheterization, Hysterectomy, Tubal Ligation Additional Past Surgical History / Comment(s): Loop recorder inserted and later removed, Schafer's procedure/colostomy 05/2023, Rt. lung mass removed 09/07/23 Past Anesthesia/Blood Transfusion Reactions: No Reported Reaction Past Psychological History: Anxiety, Depression Additional Psychological History / Comment(s): Pt resides with her spouse. She is independent. She has a nebulizer. Smoking Status: Former smoker Past Alcohol Use History: None Reported Additional Past Alcohol Use History / Comment(s): Started smoking in 1976 and quit 01/05. Smoked 2ppd most of those years. Past Drug Use History: None Reported - Past Family History Brother(s) Family Medical History: Coronary Artery Disease (CAD), Myocardial Infarction ([place]) Additional Family Medical History / Comment(s): [place] in his early 40s, had pacemaker. Sister(s) Family Medical History: Mitral Valve Prolapse (MVP) Father Additional Family Medical History / Comment(s): "Post Op MRSA infection- from complications of that." Mother Family Medical History: Cancer Additional Family Medical History / Comment(s): Lung cancer. Medications and Allergies Home Medications Medication Instructions Recorded Confirmed Type Budesonide-Formot 160-4.5 Mcg 2 puff INHALATION RT-BID #1 unit 12/01/17 03/25/24 Rx [Symbicort 160-4.5 Mcg Inhaler] ALPRAZolam [Xanax] 0.5 mg PO BID 02/08/23 03/25/24 History Sertraline [Zoloft] 50 mg PO BID 09/04/23 03/25/24 History HYDROcodone/APAP 10-325MG [Norris 1 tab PO QID 10/20/23 03/25/24 History 10-325] Albuterol Sulfate/Budesonide 2 puff INHALATION RT-Q4H PRN 03/15/24 03/25/24 History [Airsupra 90-80 Mcg Inhaler] amLODIPine [Norvasc] 10 mg PO DAILY 03/15/24 03/25/24 History lamoTRIgine [LaMICtal] 100 mg PO BID 03/15/24 03/25/24 History Cefdinir [Omnicef] 300 mg PO BID 03/25/24 03/25/24 History Ipratropium-Albuterol Nebulize 3 ml INHALATION RT-QID 03/25/24 03/25/24 History [Duoneb 0.5 mg-3 mg/3 ml Soln] methylPREDNISolone [Medrol Dose See Taper PO DIRECTED 03/25/24 03/25/24 History Pack] Allergies Allergy/AdvReac Type Severity Reaction Status Date / Time dust Allergy Dyspnea/Sneezing/Runny Uncoded 03/25/24 10:39 Eyes Physical Exam Vitals: Vital Signs Temp Pulse Pulse Resp BP BP Pulse Ox 03/25/24 10:45 92 03/25/24 10:35 92 03/25/24 07:45 98.6 F 101 H 18 133/84 98 03/25/24 06:21 89 03/25/24 06:09 92 03/25/24 04:02 99 03/25/24 04:00 96 03/25/24 03:53 95 03/25/24 01:48 98.0 F 106 H 23 150/81 98 03/24/24 23:44 102 H 03/24/24 23:33 98 03/24/24 21:26 97.9 F 111 H 23 138/83 94 L 03/24/24 21:13 107 H 20 03/24/24 21:07 106 H 22 03/24/24 21:03 106 H 20 144/79 96 03/24/24 20:52 116 H 18 145/95 95 03/24/24 19:04 111 H 19 122/73 99 03/24/24 18:38 106 H 22 122/73 99 03/24/24 17:54 118 H 03/24/24 17:44 118 H 03/24/24 17:32 20 03/24/24 17:22 97.4 F L 116 H 30 H 142/96 81 L Intake and Output 03/24/24 03/25/24 03/25/24 22:59 06:59 14:59 Other: # Voids 3 1 Weight 58.967 kg GENERAL DESCRIPTION: Middle-aged female lying in bed, no distress. No tachypnea or accessory muscle of respiration use. HEENT: Shows Pallor , no scleral icterus. Oral mucous membrane is dry. NECK: Trachea central, no thyromegaly. LUNGS: Unlabored breathing. Coarse breath sounds bilaterally HEART: S1, S2, regular rate and rhythm. No loud murmur ABDOMEN: Soft, no tenderness , EXTREMITIES: No edema of feet. SKIN: No rash, no masses palpable. NEUROLOGICAL: The patient is awake, alert, oriented x3, mood and affect normal. Results CBC & Chem 7: 03/25/24 03:43 03/25/24 03:43 Labs: Abnormal Lab Results - Last 24 Hours (Table) 03/24/24 03/24/24 03/24/24 Range/Units 17:53 17:53 17:53 WBC 13.7 H (3.8-10.6) k/uL MCHC (32.0-37.0) g/dL RDW (11.5-14.5) % Plt Count 507 H (150-450) k/uL Immature Gran # (0.00-0.04) X 10*3/uL Neutrophils # 11.3 H (1.3-7.7) k/uL Lymphocytes # (0.90-5.00) X 10*3/uL Monocytes # (0.20-1.00) X 10*3/uL Eosinophils # (0.04-0.35) X 10*3/uL PT 9.8 L (10.0-12.5) sec APTT 21.8 L (22.0-30.0) sec Sodium 129 L (137-145) mmol/L Chloride 91 L (98-107) mmol/L Carbon Dioxide 31 H (22-30) mmol/L Creatinine 0.49 L (0.52-1.04) mg/dL BUN/Creatinine Ratio (12.00-20.00) Ratio Glucose 105 H (74-99) mg/dL Total Bilirubin (0.3-1.2) mg/dL Total Protein (6.2-8.2) g/dL RSV (PCR) (Not Detectd) 03/24/24 03/25/24 03/25/24 Range/Units 17:53 03:43 03:43 WBC (3.8-10.6) k/uL MCHC 31.3 L (32.0-37.0) g/dL RDW 16.0 H (11.5-14.5) % Plt Count (150-450) k/uL Immature Gran # 0.15 H (0.00-0.04) X 10*3/uL Neutrophils # 7.77 H (1.3-7.7) k/uL Lymphocytes # 0.30 L (0.90-5.00) X 10*3/uL Monocytes # 0.09 L (0.20-1.00) X 10*3/uL Eosinophils # 0 L (0.04-0.35) X 10*3/uL PT (10.0-12.5) sec APTT (22.0-30.0) sec Sodium 132 L (137-145) mmol/L Chloride 93 L (98-107) mmol/L Carbon Dioxide (22-30) mmol/L Creatinine 0.5 L (0.52-1.04) mg/dL BUN/Creatinine Ratio 27.60 H (12.00-20.00) Ratio Glucose 129 H (74-99) mg/dL Total Bilirubin <0.2 L (0.3-1.2) mg/dL Total Protein 5.9 L (6.2-8.2) g/dL RSV (PCR) Detected A (Not Detectd) Assessment and Plan (1) RSV bronchitis Current Visit: Yes Status: Acute Code(s): J20.5 - ACUTE BRONCHITIS DUE TO RESPIRATORY SYNCYTIAL VIRUS SNOMED Code(s): 17232144 (2) Leukocytosis Current Visit: No Status: Acute Code(s): D72.829 - ELEVATED WHITE BLOOD CELL COUNT, UNSPECIFIED SNOMED Code(s): 423294658 Plan: 1patient presenting to the hospital for evaluation of increasing shortness of breath she also have a cough has been diagnosed with a COPD exacerbation with RSV bronchitis treatment for which is mostly supportive including steroids for COPD exacerbation and bronchodilator but no need for antiviral. 2leukocytosis possibly reactive as seem to have resolved with antibiotic therapy will be monitored closely. 3we will check inflammatory markers We will follow on clinical condition and cultures to further adjust medication if needed Thank you for this consultation we will follow the patient along with you Dictation was produced using [employer] dictation software. please excuse any grammatical, word or spelling errors. Time with Patient: Greater than 30
[2024-03-26 09:04] LABS: Basophils % (A) 0 %; Eosinophils # (A) 0.1 k/uL (0-0.7); Eosinophils % (A) 1 %; HCT 39.3 % (34.0-46.0); HGB 12.6 gm/dL (11.4-16.0); Lymphocytes # (A) 0.4 k/uL (1.0-4.8); Lymphocytes % (A) 4 %; MCH 29.8 pg (25.0-35.0); MCV 93.1 fL (80.0-100.0); Mean Platelet Volume 7.3; Monocytes # (A) 0.3 k/uL (0-1.0); Monocytes % (A) 3 %; Neutrophils # (A) 7.6 k/uL (1.3-7.7); Neutrophils % (A) 90 %; Platelet Count 383 k/uL (150-450); RBC 4.22 m/uL (3.80-5.40); RDW 15.3 % (11.5-15.5); WBC 8.4 k/uL (3.8-10.6)
[2024-03-26 09:18] LABS: African American GFR (CKD) >90 (>60 ml/min/1.73 sqM); Anion Gap 5 mmol/L; Blood Urea Nitrogen 12 mg/dL (7-17); Calcium 9.4 mg/dL (8.4-10.2); Carbon Dioxide 36 mmol/L (22-30); Chloride 84 mmol/L (98-107); Glucose 138 mg/dL (74-99); Non-African American GFR(CKD) >90 (>60 ml/min/1.73 sqM); Potassium 4.9 mmol/L (3.5-5.1); Sodium 125 mmol/L (137-145)
--- NOTE | 2024-03-26 09:28 | P.PN ---
Subjective Progress Note Date: 03/26/24 Principal diagnosis: Acute hypoxic respiratory failure due to viral bronchitis Viral bronchitis related to RSV Acute COPD exacerbation Hypertension hypertensive cardiovascular disease Generalized anxiety disorder History of lung cancer status post lobectomy March 26, 2024, patient seen evaluate examined, remains afebrile, hemodynamic status stable, oxygen saturation could not be weaned down less than 6 L, saturation is 97% on 6 L. Patient remains on bronchodilators medications from home including Norvasc Lamictal and Zoloft, gently being hydrated, remains on IV steroids tolerating well, currently 40 mg Q8 hourly. Labs from today reviewed white cell count stabilized rest of CBC fairly within normal limit, D-dimer checked is 0.34, sodium is up today's labs are pending 64-year-old female with end-stage COPD and history of lung cancer status post lobectomy patient presented emergency department increasing shortness of breath for 2 to 3 days along with cough congestion very weak not feeling well severe dyspnea on minimal activity and exertion. On arrival she was hypoxic on room air requiring BiPAP support but now tapered down to 6 L. On arrival WBC count 13.7, thrombocytosis present, coags were okay, labs are significant for hyponatremia sodium 129, BUN/creatinine was within normal limit 12/0.49 chemistry otherwise fairly within normal limit, influenza A as well as influenza B were negative, COVID was negative however came back positive for RSV PCR currently patient is being continued on her home medicine including antianxiety and antihypertensive along with DVT prophylaxis, IV steroids and continuation of her Lamictal patient is on Pulmicort as well. Chest x-ray interstitial infiltrate Objective - Vital Signs Vital signs: Vital Signs Temp 97.7 F 03/26/24 02:46 Pulse 98 03/26/24 09:06 Resp 16 03/26/24 02:46 BP 155/83 03/26/24 02:46 Pulse Ox 97 03/26/24 08:57 FiO2 Intake & Output 03/25/24 03/26/24 03/26/24 18:59 06:59 18:59 Other: # Voids 2 3 - Exam - Constitutional General appearance: average body habitus, cooperative, disheveled, mild distress - EENT Eyes: EOMI Ears: bilateral: normal - Neck Carotids: bilateral: upstroke normal Thyroid: negative: normal size - Respiratory Respiratory: bilateral: diminished, wheezing - Cardiovascular Rhythm: regular Heart sounds: normal: S1, S2 - Gastrointestinal General gastrointestinal: normal bowel sounds - Integumentary Integumentary: normal turgor - Neurologic Neurologic: CNII-XII intact - Musculoskeletal Musculoskeletal: gait normal, generalized weakness, strength equal bilaterally - Psychiatric Psychiatric: A&O x's 3, appropriate affect, intact judgment & insight - Labs CBC & Chem 7: 03/26/24 08:44 03/25/24 03:43 Labs: Abnormal Lab Results - Last 24 Hours (Table) 03/26/24 Range/Units 08:44 Lymphocytes # 0.4 L (1.0-4.8) k/uL Assessment and Plan Assessment: Acute hypoxic respiratory failure due to viral bronchitis Viral bronchitis related to RSV Acute COPD exacerbation Hypertension hypertensive cardiovascular disease Generalized anxiety disorder History of lung cancer status post lobectomy Plan: Continue to titrate oxygen down as tolerated Continue bronchodilator and inhaled aerosolized steroids Continue IV steroids Continue supportive care Continue supplemental oxygen titrate oxygen down as tolerated keeping saturation of 94% Patient being continued on antihypertensive agents Norvasc Continue antianxiety medicine antidepressant Patient has been following oncology with last CT scan surveillance no mass was noted Patient is high risk for DVT PE, will check D-dimer if elevated will get duplex ultrasound of both lower extremity as well as CTA chest Time with Patient: Greater than 30
[2024-03-26 09:45] LABS: C Reactive Protein 2.5 mg/dL (<1.0)
--- NOTE | 2024-03-26 11:44 | PN ---
PROGRESS NOTE SUBJECTIVE: A 64-year-old white female came in with RSV pneumonia. Still having difficulty breathing. She has been 20% better than when she came in. She is on 96% nasal cannula, O2 saturation 94%, pulse 104, temperature 97.6. Labs show white count 8.34, left shift, neutrophils 7.77, sodium 132, potassium 4.7. She may have a suppressed leukocyte count secondary to being having cancer. Glucose 129. Procalcitonin 0.1. She has RSV pneumonia, acute hypoxemic respiratory failure. OBJECTIVE: LUNGS: Show scattered rhonchi, wheeze. CARDIOVASCULAR: S1, S2. HEMATOLOGY: Negative Homans. PSYCH: Fair mood and affect. Tachycardic, hypoxic. She is breathing heavy. She has acute hypoxemic respiratory failure secondary to RSV pneumonia, chronic obstructive pulmonary disease exacerbation, hypertensive cardiovascular disease, anxiety, pulmonary hypertension, history of lung cancer, status post lobectomy. IV steroids, supportive care, bronchodilators, updrafts. Prognosis extremely guarded. MMODL / IJN: [id number] /
[2024-03-26] MEDS: ONDANSETRON 4 MG/2 ML VIAL IVP PRN (12:50)
--- NOTE | 2024-03-26 13:38 | P.PN ---
Subjective Progress Note Date: 03/26/24 Principal diagnosis: Reason for follow-up is RSV, leukocytosis Patient is a 64-year-old female with a past medical history significant for COPD, lung cancer status post lobectomy hypertension osteoarthritis and hearing disorder patient has been brought into the hospital for evaluation of increasing shortness of breath patient tested positive for RSV probably this consultation. On today's evaluation that is 03/26/2024, Patient is afebrile this morning patient is breathing slightly comfortably currently on 5 L nasal cannula oxygen did have some chest pain and cough no vomiting diarrhea has been reported. Patient white count is 8.4 creatinine 0.41 Pro-Cole 0.10 Objective - Vital Signs Vital signs: Vital Signs Temp 97.6 F 03/26/24 07:44 Pulse 96 03/26/24 12:00 Resp 26 H 03/26/24 08:30 BP 151/78 03/26/24 07:44 Pulse Ox 97 03/26/24 08:57 FiO2 Intake & Output 03/25/24 03/26/24 03/26/24 18:59 06:59 18:59 Intake Total 300 Balance 300 Intake: Oral 300 Other: Voiding Method Toilet # Voids 2 3 3 - Exam GENERAL DESCRIPTION: An elderly female lying in bed in no distress RESPIRATORY SYSTEM: Unlabored breathing , decreased intensity of breath sounds HEART: S1 S2 regular rate and rhythm , ABDOMEN: Soft , no tenderness EXTREMITIES: No edema feet - Labs CBC & Chem 7: 03/26/24 08:44 03/26/24 08:44 Labs: Abnormal Lab Results - Last 24 Hours (Table) 03/26/24 03/26/24 Range/Units 08:44 08:44 Lymphocytes # 0.4 L (1.0-4.8) k/uL Sodium 125 L (137-145) mmol/L Chloride 84 L (98-107) mmol/L Carbon Dioxide 36 H (22-30) mmol/L Creatinine 0.41 L (0.52-1.04) mg/dL Glucose 138 H (74-99) mg/dL C-Reactive Protein 2.5 H (<1.0) mg/dL Assessment and Plan (1) RSV bronchitis Current Visit: Yes Status: Acute Code(s): J20.5 - ACUTE BRONCHITIS DUE TO RESPIRATORY SYNCYTIAL VIRUS SNOMED Code(s): 45325302 (2) Leukocytosis Current Visit: No Status: Acute Code(s): D72.829 - ELEVATED WHITE BLOOD CELL COUNT, UNSPECIFIED SNOMED Code(s): 751179839 Plan: 1patient presenting to the hospital for evaluation of increasing shortness of breath she also have a cough has been diagnosed with a COPD exacerbation with RSV bronchitis treatment for which is mostly supportive including steroids for COPD exacerbation and bronchodilator but no need for antiviral. 2leukocytosis possibly reactive as seem to have resolved with antibiotic therapy will be monitored closely. 3patient did have mildly elevated CRP though REMAINS normal continue with the current supportive treatment Dictation was produced using [employer] dictation software. please excuse any grammatical, word or spelling errors. Time with Patient: Less than 30
--- NOTE | 2024-03-27 07:25 | PN ---
PROGRESS NOTE A 64-year-old white female, came in with RSV pneumonia, is on heparin drip, Norvasc for hypertension, Pulmicort, DuoNeb updrafts. She is breathing a little bit better. She is 90 on 5 L. Blood pressure 152/81, temp 98.1, pulse 94, respiratory rate 20 to 24. She feels better than when she came in. Seen by [facility], Infectious Disease. Hypoxemia, respiratory failure with secondary viral bronchitis versus pneumonia, RSV, COPD exacerbation, hypertensive cardiovascular disease, anxiety. History of lung cancer. She does improve each day. We will get after repeat CAT scan of her lungs. Continue on her home medications, steroids, Pulmicort, DuoNeb. She had BiPAP support now tapered to 6 L down onto the 5. White count down to 14.3. She is sitting up in bed, giving appropriate answers. She says she is a little bit better. OBJECTIVE: LUNGS: Show scattered wheeze and rhonchi. GENERAL: She is more alert. VITAL SIGNS: Blood pressure 155/83, temp 97.7, pulse 98, respiratory rate 16 to 18. ABDOMEN: Soft. NEUROLOGIC: Alert and oriented x3. LABORATORY DATA: Sodium 132, potassium 4.7. Continue current treatment. Breathing treatment started. Prognosis guarded. Supplemental oxygen. Hypertension, anxiety medicines. CAT scan showed no mass from her prior lung cancer. There is no mass there. Prognosis guarded. MMODL / IJN: [id number] /
[2024-03-27 10:37] LABS: Basophils # (A) 0.02 X 10*3/uL (0.00-0.10); Basophils % (A) 0.4 %; Eosinophils # (A) 0 X 10*3/uL (0.04-0.35); Eosinophils % (A) 0 %; HCT 43.2 % (37.2-46.3); Lymphocytes # (A) 0.43 X 10*3/uL (0.90-5.00); Lymphocytes % (A) 9.1 %; MCH 29.1 pg (27.0-32.0); MCHC 30.1 g/dL (32.0-37.0); MCV 96.9 FL (80.0-97.0); Mean Platelet Volume 9.8 FL (9.5-12.2); Monocytes # (A) 0.19 X 10*3/uL (0.20-1.00); NRBC Per 100 WBC 0 X 10*3/uL (0.00-0.01); Neutrophils # (A) 4.03 X 10*3/uL (1.80-7.70); Neutrophils % (A) 85.7 %; Platelet Count 421 X 10*3/uL (140-440); RBC 4.46 X 10*6/uL (4.10-5.20); RDW 15.1 % (11.5-14.5); WBC 4.71 X 10*3/uL (4.50-10.00)
[2024-03-27 10:47] LABS: ALT 23 U/L (8-44); AST 25 U/L (13-35); Albumin 4.3 g/dL (3.8-4.9); Albumin/Globulin Ratio 1.87 Ratio (1.60-3.17); Alkaline Phosphatase 113 U/L (41-126); Blood Urea Nitrogen 6.8 mg/dL (9.0-27.0); Calcium 9.5 mg/dL (8.7-10.3); Carbon Dioxide 36.3 mmol/L (21.6-31.8); Chloride 88 mmol/L (96-109); Globulin 2.3 g/dL (1.6-3.3); Glucose 138 mg/dL (70-110); Potassium 5.3 mmol/L (3.5-5.5); Sodium 132 mmol/L (135-145); Total Bilirubin <0.2 mg/dL (0.3-1.2); Total Protein 6.6 g/dL (6.2-8.2)
--- NOTE | 2024-03-27 11:18 | P.PN ---
Subjective Progress Note Date: 03/27/24 Principal diagnosis: Reason for follow-up is RSV, leukocytosis Patient is a 64-year-old female with a past medical history significant for COPD, lung cancer status post lobectomy hypertension osteoarthritis and hearing disorder patient has been brought into the hospital for evaluation of increasing shortness of breath patient tested positive for RSV probably this consultation. On today's evaluation that is 03/27/2024,the patient denies any fever or any chills, patient is breathing slightly comfortably currently on 5 L nasal oxygen denies any chest pain or worsening cough no abdominal pain or diarrhea. Patient will count is 4.71, creatinine 0.5 Objective - Vital Signs Vital signs: Vital Signs Temp 97.7 F 03/27/24 07:52 Pulse 104 H 03/27/24 09:04 Resp 18 03/27/24 09:43 BP 163/116 03/27/24 07:52 Pulse Ox 91 L 03/27/24 07:52 FiO2 Intake & Output 03/26/24 03/27/24 03/27/24 18:59 06:59 18:59 Intake Total 600 Balance 600 Intake: Oral 600 Other: Voiding Method Toilet Toilet Toilet # Voids 2 2 2 - Exam GENERAL DESCRIPTION: An elderly female lying in bed in no distress RESPIRATORY SYSTEM: Unlabored breathing , decreased intensity of breath sounds HEART: S1 S2 regular rate and rhythm , ABDOMEN: Soft , no tenderness EXTREMITIES: No edema feet - Labs CBC & Chem 7: 03/27/24 06:48 03/27/24 06:48 Labs: Abnormal Lab Results - Last 24 Hours (Table) 03/27/24 03/27/24 Range/Units 06:48 06:48 MCHC 30.1 L (32.0-37.0) g/dL RDW 15.1 H (11.5-14.5) % Lymphocytes # 0.43 L (0.90-5.00) X 10*3/uL Monocytes # 0.19 L (0.20-1.00) X 10*3/uL Eosinophils # 0 L (0.04-0.35) X 10*3/uL Sodium 132 L (135-145) mmol/L Chloride 88 L (96-109) mmol/L Carbon Dioxide 36.3 H (21.6-31.8) mmol/L BUN 6.8 L (9.0-27.0) mg/dL Creatinine 0.5 L (0.6-1.5) mg/dL Glucose 138 H (70-110) mg/dL Total Bilirubin <0.2 L (0.3-1.2) mg/dL Assessment and Plan (1) RSV bronchitis Current Visit: Yes Status: Acute Code(s): J20.5 - ACUTE BRONCHITIS DUE TO RESPIRATORY SYNCYTIAL VIRUS SNOMED Code(s): 34741945 (2) Leukocytosis Current Visit: No Status: Acute Code(s): D72.829 - ELEVATED WHITE BLOOD CELL COUNT, UNSPECIFIED SNOMED Code(s): 259990903 Plan: 1patient presenting to the hospital for evaluation of increasing shortness of breath she also have a cough has been diagnosed with a COPD exacerbation with RSV bronchitis treatment for which is mostly supportive including steroids for COPD exacerbation and bronchodilator but no need for antiviral. 2leukocytosis possibly reactive as seem to have resolved without antibiotic therapy and will be monitored closely. 3patient did have some improvement in her clinical condition, continue with the current supportive treatment, no need for antibiotics or antiviral Dictation was produced using [employer] dictation software. please excuse any grammatical, word or spelling errors. Time with Patient: Less than 30
[2024-03-27] MEDS: ZOLPIDEM 5 MG TAB PO SCH (21:25)
--- NOTE | 2024-03-27 22:29 | PN ---
PROGRESS NOTE SUBJECTIVE: A 64-year-old, came in with RSV pneumonia, acute hypoxemic respiratory failure, being seen by Dr. Hirsch and Dr. Ferreira, Infectious Disease and Pulmonology. Her breathing has been labored, but she is slowly improving. Her oxygen levels are slowly improving. She has RSV pneumonia. She is on 5 L. Her white count is 4.71. Creatinine 0.5. OBJECTIVE: VITAL SIGNS: Temperature is 97, pulse is 104, respiratory rate 18, blood pressure 162/106, O2 is 91% on 4 to 5 L. LUNGS: Show scattered wheeze and rhonchi. HEART: S1, S2. ABDOMEN: Soft. EXTREMITIES: No cyanosis or edema. ASSESSMENT: Respiratory syncytial virus bronchitis, leukocytosis, chronic obstructive pulmonary disease exacerbation, pulmonary hypertension, end-stage. She is on 5 L. We will try to wean her off the oxygen down to 2 L prior to discharge. She is slowly improving from the respiratory syncytial virus pneumonia. MMODL / IJN: [id number] /
--- NOTE | 2024-03-28 14:34 | P.PN ---
Subjective Progress Note Date: 03/28/24 Principal diagnosis: Reason for follow-up is RSV, leukocytosis Patient is a 64-year-old female with a past medical history significant for COPD, lung cancer status post lobectomy hypertension osteoarthritis and hearing disorder patient has been brought into the hospital for evaluation of increasing shortness of breath patient tested positive for RSV probably this consultation. On today's evaluation that is 03/28/2024,the patient remains to be afebrile, patient is on 5 L nasal cannula supplemental oxygen and complaining of more shortness of breath no chest pain or any worsening cough.Patient denies having any nausea or vomiting, no abdominal pain and no diarrhea has been reported. Patient did not have lab draw today Objective - Vital Signs Vital signs: Vital Signs Temp 97.8 F 03/28/24 07:13 Pulse 100 03/28/24 12:29 Resp 18 03/28/24 07:13 BP 144/87 03/28/24 07:13 Pulse Ox 92 L 03/28/24 07:13 FiO2 Intake & Output 03/27/24 03/28/24 03/28/24 18:59 06:59 18:59 Intake Total 200 Balance 200 Intake: Oral 200 Other: Voiding Method Toilet Toilet # Voids 4 4 - Exam GENERAL DESCRIPTION: An elderly female lying in bed in no distress RESPIRATORY SYSTEM: Unlabored breathing , decreased intensity of breath sounds HEART: S1 S2 regular rate and rhythm , ABDOMEN: Soft , no tenderness EXTREMITIES: No edema feet - Labs CBC & Chem 7: 03/27/24 06:48 03/27/24 06:48 Assessment and Plan (1) RSV bronchitis Current Visit: Yes Status: Acute Code(s): J20.5 - ACUTE BRONCHITIS DUE TO RESPIRATORY SYNCYTIAL VIRUS SNOMED Code(s): 20902817 (2) Leukocytosis Current Visit: No Status: Acute Code(s): D72.829 - ELEVATED WHITE BLOOD CELL COUNT, UNSPECIFIED SNOMED Code(s): 239840149 Plan: 1patient presenting to the hospital for evaluation of increasing shortness of breath she also have a cough has been diagnosed with a COPD exacerbation with RSV bronchitis treatment for which is mostly supportive including steroids for COPD exacerbation and bronchodilator but no need for antiviral. 2leukocytosis possibly reactive as seem to have resolved without antibiotic therapy and will be monitored closely. 3patient is a complaining of more shortness of breath today we will go ahead and repeat a chest x-ray and check her blood work if develops any fever or evidence of pneumonia may consider adding empiric antibiotics Dictation was produced using [employer] dictation software. please excuse any grammatical, word or spelling errors.
--- NOTE | 2024-03-28 15:34 | XR ---
EXAMINATION TYPE: XR chest 2V DATE OF EXAM: 03/28/2024 CLINICAL HISTORY: Shortness of breath TECHNIQUE: Frontal and lateral views of the chest are obtained. COMPARISON: Chest x-ray 4 days ago. FINDINGS: There is right suprahilar linear scarring redemonstrated. There is background chronic emph ysematous change redemonstrated. There is no suspicious new focal air space opacity, pleural effusion , or pneumothorax seen. The cardiac silhouette size is stable and within normal limits. The osseou s structures are intact. IMPRESSION: Chronic changes without new suspicious acute pulmonary process. [facility], , 03/28/2024 3:32 PM
[2024-03-28] MEDS: guaiFENesin-DM 600/30MG 1 EACH TAB.ER.12H PO SCH (21:47)
--- NOTE | 2024-03-28 23:50 | PN ---
PROGRESS NOTE SUBJECTIVE: She has had severe COPD, pulmonary hypertension. She remains on breathing treatments. She had her oxygen levels normal at 2 L, now she is on 5 L continuous. She is still not doing better. We are going to treat her for secondary infection with IV antibiotics. She feels better than admitted, but she would still like to do well. OBJECTIVE: VITAL SIGNS: Temp 97.7, pulse is low 100s, respiratory rate 16 to 18, blood pressure 129/80. CARDIOVASCULAR: S1, S2. LUNGS: Transmitted upper sounds. GI: Soft. HEMATOLOGY: Negative Homans. PSYCH: Fair mood and affect. LABORATORY DATA: Sodium is 132, potassium 5.3, creatinine 0.5. Sugars in 100s. Hemoglobin is 13. We are going to give her doxycycline once through the IV for tracheobronchitis. Continue on treatment for RSV pneumonia. Prognosis extremely guarded. I would not send her home until she weans down on her oxygen from 5 to 2 L. She will be in the hospital for a few more days. Prognosis is guarded. MMODL / IJN: [id number] /
[2024-03-29 05:40] LABS: Basophils % (A) 0 %; Eosinophils % (A) 1 %; HCT 40.8 % (34.0-46.0); HGB 13.1 gm/dL (11.4-16.0); Lymphocytes # (A) 0.4 k/uL (1.0-4.8); Lymphocytes % (A) 10 %; MCH 29.8 pg (25.0-35.0); MCHC 32.2 g/dL (31.0-37.0); MCV 92.8 fL (80.0-100.0); Monocytes # (A) 0.2 k/uL (0-1.0); Monocytes % (A) 5 %; Neutrophils # (A) 3.1 k/uL (1.3-7.7); Neutrophils % (A) 82 %; Platelet Count 321 k/uL (150-450); RDW 15.1 % (11.5-15.5); WBC 3.8 k/uL (3.8-10.6)
[2024-03-29 05:49] LABS: ALT 20 U/L (4-34); AST 23 U/L (14-36); African American GFR (CKD) >90 (>60 ml/min/1.73 sqM); Albumin/Globulin Ratio 1.6; Alkaline Phosphatase 94 U/L (38-126); Blood Urea Nitrogen 12 mg/dL (7-17); Calcium 9.1 mg/dL (8.4-10.2); Chloride 81 mmol/L (98-107); Globulin 2.5 g/dL; Glucose 161 mg/dL (74-99); Non-African American GFR(CKD) >90 (>60 ml/min/1.73 sqM); Sodium 127 mmol/L (137-145); Total Bilirubin 0.6 mg/dL (0.2-1.3); Total Protein 6.5 g/dL (6.3-8.2)
[2024-03-29 05:55] LABS: Anion Gap 12 mmol/L; Carbon Dioxide 34 mmol/L (22-30)
[2024-03-29 06:08] LABS: C Reactive Protein 0.5 mg/dL (<1.0)
[2024-03-29 11:52] VITALS: BMI 20.3
--- NOTE | 2024-03-29 15:43 | P.PN ---
Subjective Progress Note Date: 03/29/24 Principal diagnosis: Reason for follow-up is RSV, leukocytosis Patient is a 64-year-old female with a past medical history significant for COPD, lung cancer status post lobectomy hypertension osteoarthritis and hearing disorder patient has been brought into the hospital for evaluation of increasing shortness of breath patient tested positive for RSV probably this consultation. On today's evaluation that is 03/29/2024, the patient continues to be afebrile, the patient is on 5 L current oxygen and breathing slightly comfortably, the Pt denies having any chest pain cough is mostly dry in nature, the patient denies having any abdominal pain no vomiting or any diarrhea has been reported by the nursing staff. Patient white count is 3.8, creatinine 0.41 Pro-Cole 0.03 chest x-ray with no acute infiltrate Objective - Vital Signs Vital signs: Vital Signs Temp 98.7 F 03/29/24 07:20 Pulse 100 03/29/24 13:08 Resp 16 03/29/24 08:25 BP 166/99 03/29/24 08:28 Pulse Ox 93 L 03/29/24 08:28 FiO2 Intake & Output 03/28/24 03/29/24 03/29/24 18:59 06:59 18:59 Intake Total 240 Balance 240 Weight 58.967 kg Intake: Oral 240 Other: Voiding Method Toilet Bedside Commode # Voids 3 2 - Exam GENERAL DESCRIPTION: An elderly female lying in bed in no distress RESPIRATORY SYSTEM: Unlabored breathing , decreased intensity of breath sounds HEART: S1 S2 regular rate and rhythm , ABDOMEN: Soft , no tenderness EXTREMITIES: No edema feet - Labs CBC & Chem 7: 03/29/24 04:07 03/29/24 04:07 Labs: Abnormal Lab Results - Last 24 Hours (Table) 03/29/24 03/29/24 Range/Units 04:07 04:07 Lymphocytes # 0.4 L (1.0-4.8) k/uL Sodium 127 L (137-145) mmol/L Chloride 81 L (98-107) mmol/L Carbon Dioxide 34 H (22-30) mmol/L Creatinine 0.41 L (0.52-1.04) mg/dL Glucose 161 H (74-99) mg/dL Assessment and Plan (1) RSV bronchitis Current Visit: Yes Status: Acute Code(s): J20.5 - ACUTE BRONCHITIS DUE TO RESPIRATORY SYNCYTIAL VIRUS SNOMED Code(s): 34675646 (2) Leukocytosis Current Visit: No Status: Acute Code(s): D72.829 - ELEVATED WHITE BLOOD CELL COUNT, UNSPECIFIED SNOMED Code(s): 601432713 Plan: 1patient presenting to the hospital for evaluation of increasing shortness of breath she also have a cough has been diagnosed with a COPD exacerbation with RSV bronchitis treatment for which is mostly supportive including steroids for COPD exacerbation and bronchodilator but no need for antiviral. 2leukocytosis possibly reactive as seem to have resolved without antibiotic therapy and will be monitored closely. 3patient did have repeat a chest x-ray that was negative for pneumonia and did have normal procalcitonin hence will monitor closely off antibiotic therapy at this point Dictation was produced using [employer] dictation software. please excuse any grammatical, word or spelling errors. Time with Patient: Less than 30
--- NOTE | 2024-03-29 16:46 | P.PN ---
Progress Note - Text Progress Note Date: 03/29/24 March 29, 2024: I am rounding for Clemente Gongora. Admitted with severe COPD exacerbation. Also RSV. Sitting up in bed. Remains short of breath at rest. IV Solu-Medrol. DuoNeb 4 times daily. Decreased oral intake. Drinks a lot of water. Diet was discussed with the patient. Add Ensure. Increase nebulized pulmonary to 1 mg twice daily. Active Medications Hydrocodone Bitart/Acetaminophen (Hydrocodone/Apap 10-325mg 1 Each Tab) 1 each PO QID [facility] Last Admin: 03/29/24 12:25 Dose: 1 each Albuterol/Ipratropium (Ipratropium-Albuterol 3 Ml Neb) 3 ml INHALATION Q4H [facility] Alprazolam (Alprazolam 0.5 Mg Tab) 0.5 mg PO BID [facility] Last Admin: 03/29/24 08:21 Dose: 0.5 mg Amlodipine Besylate (Amlodipine 10 Mg Tab) 10 mg PO DAILY [facility] Last Admin: 03/29/24 08:21 Dose: 10 mg Budesonide (Budesonide 1 Mg/2 Ml Nebu) 1 mg INHALATION RT-BID [facility] Formoterol Fumarate (Formoterol Fumarate 20 Mcg/2 Ml Nebu) 20 mcg INHALATION RT-BID [facility] Guaifenesin/Dextromethorphan (Guaifenesin-Dm 600/30mg 1 Each Tab.Er.12h) 1 each PO Q12HR [facility] Last Admin: 03/29/24 08:26 Dose: 1 each Heparin Sodium (Porcine) (Heparin Sodium,Porcine 5,000 Unit/Ml 1 Ml Vial) 5,000 unit SQ Q8HR [facility] Last Admin: 03/29/24 15:51 Dose: 5,000 unit Hydromorphone HCl (Hydromorphone 1 Mg/Ml 1 Ml Syringe) 1 mg IVP Q4HR PRN PRN Reason: Breakthrough Pain Last Admin: 03/29/24 14:37 Dose: 1 mg Lamotrigine (Lamotrigine 100 Mg Tab) 100 mg PO BID [facility] Last Admin: 03/29/24 08:20 Dose: 100 mg Methylprednisolone Sodium Succinate (Methylprednisolone Sod Succi 40 Mg/Ml 1 Ml Vial) 40 mg IV Q8HR [facility] Last Admin: 03/29/24 15:50 Dose: 40 mg Naloxone HCl (Naloxone 0.4 Mg/Ml 1 Ml Vial) 0.2 mg IV Q2M PRN PRN Reason: Opioid Reversal Ondansetron HCl (Ondansetron 4 Mg/2 Ml Vial) 4 mg IVP Q6HR PRN PRN Reason: Nausea And Vomiting Last Admin: 03/27/24 20:54 Dose: 4 mg Sertraline HCl (Sertraline 50 Mg Tab) 50 mg PO BID [facility] Last Admin: 03/29/24 08:20 Dose: 50 mg Zolpidem Tartrate (Zolpidem 5 Mg Tab) 5 mg PO HS [facility] Last Admin: 03/28/24 21:46 Dose: 5 mg On examination: VITAL SIGNS: [98.5, 106, 18, 123/92, 93% - 5 L GENERAL APPEARANCE: BMI 20.4, sitting bed awake short of breath at rest HEENT: Normal external appearance of nose and ear. Oral cavity normal EYES: Pupils equal. Conjunctiva normal. NECK: JVD not raised. Mass not palpable. RESPIRATORY: Respiratory effort increased, not able to speak in full sentences, poor air entry. CARDIOVASCULAR: First and second sounds normal. No edema. ABDOMEN: Soft. Liver and spleen not palpable. No tenderness. No mass palpable. PSYCHIATRY: Alert and oriented x3. Mood and affect anxious INVESTIGATIONS, reviewed in the clinical context: March 29, 2024: White count 3.8 hemoglobin 13.1 platelets 321 sodium 127 potassium 5 BUN 12 creatinine 0.41. Procalcitonin 0.03 Assessment plan: -Acute severe COPD exacerbation In a previous smoker: Slow to respond Increase DuoNeb to 4 times daily. Add nebulized Perforomist. Increase nebulized Pulmicort to 1 mg twice daily. Continue IV Solu-Medrol. Incentive spirometry -Acute hypoxic respiratory failure 93% on 5 L -Hyponatremia from excessive water intake. Patient advised. Limit water intake. Decrease IV fluids Encourage oral solute intake -Essential hypertension Amlodipine 10 mg a day -Anxiety not otherwise specified Xanax 0.5 mg twice daily -Depression Zoloft -Full code Discussed with patient
[2024-03-29] MEDS: IPRATROPIUM-ALBUTEROL 3 ML NEB INHALATION SCH (17:23)
[2024-03-29] MEDS: FORMOTEROL FUMARATE 20 MCG/2 ML NEBU INHALATION SCH (21:18)
[2024-03-29] MEDS: BUDESONIDE 1 MG/2 ML NEBU INHALATION SCH (21:18)
--- NOTE | 2024-03-30 13:31 | P.PN ---
Subjective Progress Note Date: 03/30/24 Principal diagnosis: Reason for follow-up is RSV, leukocytosis Patient is a 64-year-old female with a past medical history significant for COPD, lung cancer status post lobectomy hypertension osteoarthritis and hearing disorder patient has been brought into the hospital for evaluation of increasing shortness of breath patient tested positive for RSV probably this consultation. On today's evaluation that is 03/30/2024, patient did not have any fever and denies any chills, patient is breathing slightly comfortably but still requiring 5 L nasal oxygen he denies any chest pain or worsening cough no vomiting or diarrhea. No new lab has been obtained today Objective - Vital Signs Vital signs: Vital Signs Temp 98.7 F 03/30/24 07:36 Pulse 106 H 03/30/24 12:01 Resp 19 03/30/24 07:36 BP 171/76 03/30/24 07:36 Pulse Ox 95 03/30/24 07:51 FiO2 Intake & Output 03/29/24 03/30/24 03/30/24 18:59 06:59 18:59 Weight 58.967 kg Other: Voiding Method Bedside Commode # Voids 6 3 1 # Bowel Movements 1 - Exam GENERAL DESCRIPTION: An elderly female lying in bed in no distress RESPIRATORY SYSTEM: Unlabored breathing , decreased intensity of breath sounds HEART: S1 S2 regular rate and rhythm , ABDOMEN: Soft , no tenderness EXTREMITIES: No edema feet - Labs CBC & Chem 7: 03/29/24 04:07 03/29/24 04:07 Assessment and Plan (1) RSV bronchitis Current Visit: Yes Status: Acute Code(s): J20.5 - ACUTE BRONCHITIS DUE TO RESPIRATORY SYNCYTIAL VIRUS SNOMED Code(s): 89209131 (2) Leukocytosis Current Visit: No Status: Acute Code(s): D72.829 - ELEVATED WHITE BLOOD CELL COUNT, UNSPECIFIED SNOMED Code(s): 766373718 Plan: 1patient presenting to the hospital for evaluation of increasing shortness of breath she also have a cough has been diagnosed with a COPD exacerbation with RSV bronchitis treatment for which is mostly supportive including steroids for COPD exacerbation and bronchodilator but no need for antiviral. 2leukocytosis possibly reactive as seem to have resolved without antibiotic therapy and will be monitored closely. 3patient did have repeat a chest x-ray that was negative for pneumonia and did have normal procalcitonin continue the current supportive treatment off antibiotic therapy Dictation was produced using [employer] dictation software. please excuse any gram matical, word or spelling errors. Time with Patient: Less than 30
[2024-03-30] MEDS: ALPRAZolam 0.5 MG TAB PO SCH (15:13)
--- NOTE | 2024-03-30 20:41 | P.PN ---
Progress Note - Text Progress Note Date: 03/30/24 I am rounding for Clemente Gongora. March 29, 2024 Admitted with severe COPD exacerbation. Also RSV. Sitting up in bed. Remains short of breath at rest. IV Solu-Medrol. DuoNeb 4 times daily. Decreased oral intake. Drinks a lot of water. Diet was discussed with the patient. Add Ensure. Increase nebulized pulmonary to 1 mg twice daily. March 302024. Patient remains quite a bit short of breath. Remains on DuoNeb and IV Solu-Medrol. Diet was discussed yesterday including cutting back on water. Patient be getting IV Dilaudid which is not indicated. I did explain to patient that interfere with her appetite nausea and make her bowels low. Hence IV Dilaudid is being discontinued. Patient was not very happy about the same. K-pad was ordered. Spoke to the nurse to have the patient sit up on a chair. Oxygen humidified. Mucinex was added. Again encouraged for more jose ramon quent incentive spirometry. Active Medications Hydrocodone Bitart/Acetaminophen (Hydrocodone/Apap 10-325mg 1 Each Tab) 1 each PO QID [facility] Last Admin: 03/30/24 17:05 Dose: 1 each Albuterol/Ipratropium (Ipratropium-Albuterol 3 Ml Neb) 3 ml INHALATION RT-Q4H [facility] Last Admin: 03/30/24 15:42 Dose: 3 ml Alprazolam (Alprazolam 0.5 Mg Tab) 0.5 mg PO TID [facility] Last Admin: 03/30/24 15:13 Dose: 0.5 mg Amlodipine Besylate (Amlodipine 10 Mg Tab) 10 mg PO DAILY [facility] Last Admin: 03/30/24 08:48 Dose: 10 mg Budesonide (Budesonide 1 Mg/2 Ml Nebu) 1 mg INHALATION RT-BID [facility] Last Admin: 03/30/24 07:50 Dose: 1 mg Formoterol Fumarate (Formoterol Fumarate 20 Mcg/2 Ml Nebu) 20 mcg INHALATION RT-BID [facility] Last Admin: 03/30/24 08:02 Dose: 20 mcg Guaifenesin (Guaifenesin 600 Mg Tablet.Er) 1,200 mg PO Q12HR [facility] Heparin Sodium (Porcine) (Heparin Sodium,Porcine 5,000 Unit/Ml 1 Ml Vial) 5,000 unit SQ Q8HR [facility] Last Admin: 03/30/24 15:14 Dose: 5,000 unit Lamotrigine (Lamotrigine 100 Mg Tab) 100 mg PO BID [facility] Last Admin: 03/30/24 08:48 Dose: 100 mg Methylprednisolone Sodium Succinate (Methylprednisolone Sod Succi 40 Mg/Ml 1 Ml Vial) 40 mg IV Q8HR [facility] Last Admin: 03/30/24 15:13 Dose: 40 mg Naloxone HCl (Naloxone 0.4 Mg/Ml 1 Ml Vial) 0.2 mg IV Q2M PRN PRN Reason: Opioid Reversal Ondansetron HCl (Ondansetron 4 Mg/2 Ml Vial) 4 mg IVP Q6HR PRN PRN Reason: Nausea And Vomiting Last Admin: 03/27/24 20:54 Dose: 4 mg Sertraline HCl (Sertraline 50 Mg Tab) 50 mg PO BID [facility] Last Admin: 03/30/24 08:49 Dose: 50 mg Zolpidem Tartrate (Zolpidem 5 Mg Tab) 5 mg PO HS [facility] Last Admin: 03/29/24 21:51 Dose: 5 mg On examination: VITAL SIGNS: 98, 78, 19, 1 1 6% 1, 92% GENERAL APPEARANCE: BMI 20.4, in bed awake short of breath at rest HEENT: Normal external appearance of nose and ear. Oral cavity normal EYES: Pupils equal. Conjunctiva normal. NECK: JVD not raised. Mass not palpable. RESPIRATORY: Respiratory effort increased, not able to speak in full sentences, decreased air entry. CARDIOVASCULAR: First and second sounds normal. No edema. ABDOMEN: Soft. Liver and spleen not palpable. No tenderness. No mass palpable. PSYCHIATRY: Alert and oriented x3. Mood and affect anxious INVESTIGATIONS, reviewed in the clinical context: March 29, 2024: White count 3.8 hemoglobin 13.1 platelets 321 sodium 127 potassium 5 BUN 12 creatinine 0.41. Procalcitonin 0.03 Assessment plan: -Acute severe COPD exacerbation In a previous smoker: Slow to respond DuoNeb to 4 times daily. Add nebulized Perforomist. Increase nebulized Pulmicort to 1 mg twice daily. Continue IV Solu-Medrol. Incentive spirometry Sounds congested. Add humidified oxygen -Acute hypoxic respiratory failure 93% on 5 L -Chronic back pain for arthritis, which patient is already on [place] 10, 4 times a day. I informed the patient that IV Dilaudid not good given decreased appetite decreased activity. Hence is being discontinued Use K-pad -Hyponatremia from excessive water intake. Patient advised. Fluid restrict 1500 cc e. Decrease IV fluids Encourage oral solute intake -Essential hypertension Amlodipine 10 mg a day -Anxiety, uncontrolled Increase Xanax 0.5 mg 3 times daily -Depression Zoloft -Full code Discussed with patient
[2024-03-30] MEDS: guaiFENesin 600 MG TABLET.ER PO SCH (21:30)
[2024-03-31 04:57] LABS: African American GFR (CKD) >90 (>60 ml/min/1.73 sqM); Anion Gap 6 mmol/L; Blood Urea Nitrogen 14 mg/dL (7-17); Calcium 9.7 mg/dL (8.4-10.2); Carbon Dioxide 38 mmol/L (22-30); Chloride 84 mmol/L (98-107); Glucose 137 mg/dL (74-99); Non-African American GFR(CKD) >90 (>60 ml/min/1.73 sqM); Potassium 4.6 mmol/L (3.5-5.1); Sodium 128 mmol/L (137-145)
[2024-03-31] MEDS: ENOXAPARIN 40 MG/0.4 ML SYRINGE SQ SCH (14:23)
[2024-03-31] MEDS: DILTIAZEM ORAL 30 MG TAB PO SCH (15:02)
--- NOTE | 2024-03-31 17:00 | P.PN ---
Subjective Progress Note Date: 03/31/24 Principal diagnosis: Reason for follow-up is RSV, leukocytosis Patient is a 64-year-old female with a past medical history significant for COPD, lung cancer status post lobectomy hypertension osteoarthritis and hearing disorder patient has been brought into the hospital for evaluation of increasing shortness of breath patient tested positive for RSV probably this consultation. On today's evaluation that is 03/31/2024, Patient is afebrile patient is currently on 4 L current oxygen and mention breathing slightly comfortably no chest pain did have cough with minimal sputum production no vomiting or diarrhea. Patient did have a creatinine 0.42 no CBC was done today Objective - Vital Signs Vital signs: Vital Signs Temp 98.9 F 03/31/24 07:12 Pulse 115 H 03/31/24 15:43 Resp 16 03/31/24 07:12 BP 158/93 03/31/24 07:12 Pulse Ox 97 03/31/24 07:49 FiO2 Intake & Output 03/30/24 03/31/24 03/31/24 18:59 06:59 18:59 Other: Voiding Method Bedside Commode # Voids 1 6 # Bowel Movements 1 - Exam GENERAL DESCRIPTION: An elderly female lying in bed in no distress RESPIRATORY SYSTEM: Unlabored breathing , decreased intensity of breath sounds HEART: S1 S2 regular rate and rhythm , ABDOMEN: Soft , no tenderness EXTREMITIES: No edema feet - Labs CBC & Chem 7: 03/29/24 04:07 03/31/24 03:44 Labs: Abnormal Lab Results - Last 24 Hours (Table) 03/31/24 Range/Units 03:44 Sodium 128 L (137-145) mmol/L Chloride 84 L (98-107) mmol/L Carbon Dioxide 38 H (22-30) mmol/L Creatinine 0.42 L (0.52-1.04) mg/dL Glucose 137 H (74-99) mg/dL Assessment and Plan (1) RSV bronchitis Current Visit: Yes Status: Acute Code(s): J20.5 - ACUTE BRONCHITIS DUE TO RESPIRATORY SYNCYTIAL VIRUS SNOMED Code(s): 95008162 (2) Leukocytosis Current Visit: No Status: Acute Code(s): D72.829 - ELEVATED WHITE BLOOD CELL COUNT, UNSPECIFIED SNOMED Code(s): 830211193 Plan: 1patient presenting to the hospital for evaluation of increasing shortness of breath she also have a cough has been diagnosed with a COPD exacerbation with RSV bronchitis treatment for which is mostly supportive including steroids for COPD exacerbation and bronchodilator but no need for antiviral. 2leukocytosis possibly reactive as seem to have resolved without antibiotic therapy and will be monitored closely. 3patient did have repeat a chest x-ray that was negative for pneumonia and did have normal procalcitonin 4patient to continue with the steroids and bronchodilator therapy and will monitor closely off antibiotic therapy Dictation was produced using [employer] dictation software. please excuse any grammatical, word or spelling errors. Time with Patient: Less than 30
--- NOTE | 2024-03-31 18:33 | P.PN ---
Progress Note - Text Progress Note Date: 03/31/24 I am rounding for Clemente Gongora. March 29, 2024 Admitted with severe COPD exacerbation. Also RSV. Sitting up in bed. Remains short of breath at rest. IV Solu-Medrol. DuoNeb 4 times daily. Decreased oral intake. Drinks a lot of water. Diet was discussed with the patient. Add Ensure. Increase nebulized pulmonary to 1 mg twice daily. March 302024. Patient remains quite a bit short of breath. Remains on DuoNeb and IV Solu-Medrol. Diet was discussed yesterday including cutting back on water. Patient be getting IV Dilaudid which is not indicated. I did explain to patient that interfere with her appetite nausea and make her bowels low. Hence IV Dilaudid is being discontinued. Patient was not very happy about the same. K-pad was ordered. Spoke to the nurse to have the patient sit up on a chair. Oxygen humidified. Mucinex was added. Again encouraged for more freq uent incentive spirometry. March 31: Patient's Dilaudid was discontinued yesterday. Stable pain wahl. Again reminded the patient today to increase use of incentive spirometry. On 3 L nasal cannula. A bit tachycardic. Will increase Cardizem to 60 mg 3 times daily for better heart rate control and DC amlodipine. Will add Paxil for anxiety. DC Zoloft Active Medications Hydrocodone Bitart/Acetaminophen (Hydrocodone/Apap 10-325mg 1 Each Tab) 1 each PO QID [facility] Last Admin: 03/31/24 17:15 Dose: 1 each Albuterol/Ipratropium (Ipratropium-Albuterol 3 Ml Neb) 3 ml INHALATION RT-Q4H [facility] Last Admin: 03/31/24 15:30 Dose: 3 ml Alprazolam (Alprazolam 0.5 Mg Tab) 0.5 mg PO TID [facility] Last Admin: 03/31/24 15:01 Dose: 0.5 mg Budesonide (Budesonide 1 Mg/2 Ml Nebu) 1 mg INHALATION RT-BID [facility] Last Admin: 03/31/24 07:47 Dose: 1 mg Diltiazem HCl (Diltiazem Oral 60 Mg Tab) 60 mg PO TID [facility] Enoxaparin Sodium (Enoxaparin 40 Mg/0.4 Ml Syringe) 40 mg SQ DAILY [facility] Last Admin: 03/31/24 14:23 Dose: 40 mg Formoterol Fumarate (Formoterol Fumarate 20 Mcg/2 Ml Nebu) 20 mcg INHALATION RT-BID [facility] Last Admin: 03/31/24 07:47 Dose: 20 mcg Guaifenesin (Guaifenesin 600 Mg Tablet.Er) 1,200 mg PO Q12HR [facility] Last Admin: 03/31/24 08:10 Dose: 1,200 mg Lamotrigine (Lamotrigine 100 Mg Tab) 100 mg PO BID [facility] Last Admin: 03/31/24 08:12 Dose: 100 mg Methylprednisolone Sodium Succinate (Methylprednisolone Sod Succi 40 Mg/Ml 1 Ml Vial) 40 mg IV Q8HR [facility] Last Admin: 03/31/24 15:01 Dose: 40 mg Naloxone HCl (Naloxone 0.4 Mg/Ml 1 Ml Vial) 0.2 mg IV Q2M PRN PRN Reason: Opioid Reversal Ondansetron HCl (Ondansetron 4 Mg/2 Ml Vial) 4 mg IVP Q6HR PRN PRN Reason: Nausea And Vomiting Last Admin: 03/27/24 20:54 Dose: 4 mg Sertraline HCl (Sertraline 50 Mg Tab) 50 mg PO BID [facility] Last Admin: 03/31/24 08:12 Dose: 50 mg Zolpidem Tartrate (Zolpidem 5 Mg Tab) 5 mg PO HS [facility] Last Admin: 03/30/24 21:31 Dose: 5 mg On examination: VITAL SIGNS: 98.9, 108, 16, 158 x 93, 97% on 4 L GENERAL APPEARANCE: BMI 20.4, in bed awake short of breath at rest HEENT: Normal external appearance of nose and ear. Oral cavity normal EYES: Pupils equal. Conjunctiva normal. NECK: JVD not raised. Mass not palpable. RESPIRATORY: Respiratory effort increased, not able to speak in full sentences, decreased air entry. CARDIOVASCULAR: First and second sounds normal. No edema. ABDOMEN: Soft. Liver and spleen not palpable. No tenderness. No mass palpable. PSYCHIATRY: Alert and oriented x3. Mood and affect anxious INVESTIGATIONS, reviewed in the clinical context: March 31: Sodium 128 potassium 4.6 creatinine 0.42 March 29, 2024: White count 3.8 hemoglobin 13.1 platelets 321 sodium 127 potassium 5 BUN 12 creatinine 0.41. Procalcitonin 0.03 Assessment plan: -Acute severe COPD exacerbation In a previous smoker: Slow to respond DuoNeb to 4 times daily. Add nebulized Perforomist. Increase nebulized Pulmicort to 1 mg twice daily. Continue IV Solu-Medrol. Incentive spirometry humidified oxygen -Acute hypoxic respiratory failure 93% on 4 L -Chronic back pain for arthritis, which patient is already on [place] 10, 4 times a day. I informed the patient that IV Dilaudid not good given decreased appetite decreased activity. Hence is being discontinued Use K-pad -Hyponatremia from excessive water intake.: Slow to respond Patient advised. Fluid restrict 1500 cc e. Decrease IV fluids Encourage oral solute intake -Essential hypertension Stop amlodipine. Start Cardizem 60 mg 3 times daily because of tachycardia -Anxiety, uncontrolled Increase Xanax 0.5 mg 3 times daily Start Paxil 20 mg a day -Depression Stop Zoloft. Start Paxil. -Full code Discussed with patient
[2024-03-31] MEDS: PARoxetine 20 MG TAB PO SCH (19:06)
[2024-03-31] MEDS: DILTIAZEM ORAL 60 MG TAB PO SCH (21:13)
[2024-04-01 04:34] LABS: African American GFR (CKD) >90 (>60 ml/min/1.73 sqM); Anion Gap 9 mmol/L; Blood Urea Nitrogen 15 mg/dL (7-17); Calcium 9.7 mg/dL (8.4-10.2); Carbon Dioxide 32 mmol/L (22-30); Chloride 85 mmol/L (98-107); Glucose 129 mg/dL (74-99); Non-African American GFR(CKD) >90 (>60 ml/min/1.73 sqM); Potassium 4.5 mmol/L (3.5-5.1); Sodium 126 mmol/L (137-145)
[2024-04-01] MEDS: HYDROcodone/APAP 10-325MG 1 EACH TAB PO SCH (12:23)
--- NOTE | 2024-04-01 17:53 | P.PN ---
Progress Note - Text Progress Note Date: 04/01/24 I am rounding for Clemente Gongora. March 29, 2024 Admitted with severe COPD exacerbation. Also RSV. Sitting up in bed. Remains short of breath at rest. IV Solu-Medrol. DuoNeb 4 times daily. Decreased oral intake. Drinks a lot of water. Diet was discussed with the patient. Add Ensure. Increase nebulized pulmonary to 1 mg twice daily. March 302024. Patient remains quite a bit short of breath. Remains on DuoNeb and IV Solu-Medrol. Diet was discussed yesterday including cutting back on water. Patient be getting IV Dilaudid which is not indicated. I did explain to patient that interfere with her appetite nausea and make her bowels low. Hence IV Dilaudid is being discontinued. Patient was not very happy about the same. K-pad was ordered. Spoke to the nurse to have the patient sit up on a chair. Oxygen humidified. Mucinex was added. Again encouraged for more freq uent incentive spirometry. March 31: Patient's Dilaudid was discontinued yesterday. Stable pain wahl. Again reminded the patient today to increase use of incentive spirometry. On 3 L nasal cannula. A bit tachycardic. Will increase Cardizem to 60 mg 3 times daily for better heart rate control and DC amlodipine. Will add Paxil for anxiety. DC Zoloft April 01: Up in a chair. Short of breath. Decreased oral intake. at the bedside. Spoke at length with the patient and . About increased food intake. Also explained to the patient why IV Dilaudid not indicated. Her pain is chronic. Will increase her [place] to every 4 hours. Patient was placed on Cardizem 60 3 times daily yesterday. And amlodipine was discontinued. Still has some tachycardia. Increase Cardizem to 60 mg 4 times daily. Also patient placed on Paxil yesterday and Zoloft discontinued because of anxiety. Active Medications Hydrocodone Bitart/Acetaminophen (Hydrocodone/Apap 10-325mg 1 Each Tab) 1 each PO Q4H [facility] Last Admin: 04/01/24 16:12 Dose: 1 each Albuterol/Ipratropium (Ipratropium-Albuterol 3 Ml Neb) 3 ml INHALATION RT-Q4H [facility] Last Admin: 04/01/24 15:30 Dose: 3 ml Alprazolam (Alprazolam 0.5 Mg Tab) 0.5 mg PO TID [facility] Last Admin: 04/01/24 16:13 Dose: 0.5 mg Budesonide (Budesonide 1 Mg/2 Ml Nebu) 1 mg INHALATION RT-BID [facility] Last Admin: 04/01/24 07:42 Dose: 1 mg Diltiazem HCl (Diltiazem Oral 60 Mg Tab) 60 mg PO TID [facility] Last Admin: 04/01/24 16:12 Dose: 60 mg Enoxaparin Sodium (Enoxaparin 40 Mg/0.4 Ml Syringe) 40 mg SQ DAILY [facility] Last Admin: 04/01/24 09:08 Dose: 40 mg Guaifenesin (Guaifenesin 600 Mg Tablet.Er) 1,200 mg PO Q12HR [facility] Last Admin: 04/01/24 09:07 Dose: 1,200 mg Lamotrigine (Lamotrigine 100 Mg Tab) 100 mg PO BID [facility] Last Admin: 04/01/24 09:07 Dose: 100 mg Methylprednisolone Sodium Succinate (Methylprednisolone Sod Succi 40 Mg/Ml 1 Ml Vial) 40 mg IV Q8HR [facility] Last Admin: 04/01/24 16:13 Dose: 40 mg Naloxone HCl (Naloxone 0.4 Mg/Ml 1 Ml Vial) 0.2 mg IV Q2M PRN PRN Reason: Opioid Reversal Ondansetron HCl (Ondansetron 4 Mg/2 Ml Vial) 4 mg IVP Q6HR PRN PRN Reason: Nausea And Vomiting Last Admin: 03/27/24 20:54 Dose: 4 mg Paroxetine HCl (Paroxetine 20 Mg Tab) 20 mg PO DAILY [facility] Last Admin: 04/01/24 09:07 Dose: 20 mg Zolpidem Tartrate (Zolpidem 5 Mg Tab) 5 mg PO HS [facility] Last Admin: 03/31/24 21:10 Dose: 5 mg On examination: VITAL SIGNS: 97.8, 116 x 22, 167 100, 90% on 4 L GENERAL APPEARANCE: BMI 20.4, up in a chair, short of breath at rest HEENT: Normal external appearance of nose and ear. Oral cavity normal EYES: Pupils equal. Conjunctiva normal. NECK: JVD not raised. Mass not palpable. RESPIRATORY: Respiratory effort increased, not able to speak in full sentences, decreased air entry. CARDIOVASCULAR: First and second sounds normal. No edema. ABDOMEN: Soft. Liver and spleen not palpable. No tenderness. No mass palpable. PSYCHIATRY: Alert and oriented x3. Mood and affect anxious INVESTIGATIONS, reviewed in the clinical context: April 01: Sodium 126 potassium 4.5 creatinine 0.48 March 31: Sodium 128 potassium 4.6 creatinine 0.42 March 29, 2024: White count 3.8 hemoglobin 13.1 platelets 321 sodium 127 potassium 5 BUN 12 creatinine 0.41. Procalcitonin 0.03 Assessment plan: -Acute severe COPD exacerbation In a previous smoker: Slow to respond DuoNeb to 4 times daily. nebulized Perforomist. Pulmicort to 1 mg twice daily. Continue IV Solu-Medrol. Incentive spirometry humidified oxygen -Acute hypoxic respiratory failure 93% on 4 L -Chronic back pain for arthritis, which patient is already on [place] 10, 4 times a day. I informed the patient that IV Dilaudid not good given decreased appetite decr eased activity. Hence is being discontinued Use K-pad After discussion patient today increased to 6 times a day -Hyponatremia from excessive water intake.: Slow to respond, as patient keeps drinking water Patient advised. Increase fluid restrict 1200 cc e. Decrease IV fluids Encourage oral solute intake Change from heart healthy to regular diet -Essential hypertension Stop amlodipine. Increase Cardizem 60 mg 4 times daily because of tachycardia -Anxiety, uncontrolled, with depression Xanax 0.5 mg 3 times daily was increased Start Paxil 20 mg a day, Zoloft discontinued -Full code
[2024-04-01] MEDS ORDERED: IPRATROPIUM-ALBUTEROL 3 ML NEB INHALATION PRN (20:46)
[2024-04-01] MEDS: DILTIAZEM ORAL 60 MG TAB PO SCH (21:29)
[2024-04-02 03:55] LABS: African American GFR (CKD) >90 (>60 ml/min/1.73 sqM); Anion Gap 9 mmol/L; Blood Urea Nitrogen 27 mg/dL (7-17); Calcium 9.8 mg/dL (8.4-10.2); Carbon Dioxide 34 mmol/L (22-30); Chloride 85 mmol/L (98-107); Glucose 139 mg/dL (74-99); Non-African American GFR(CKD) >90 (>60 ml/min/1.73 sqM); Potassium 4.9 mmol/L (3.5-5.1); Sodium 128 mmol/L (137-145)
[2024-04-02] MEDS: IPRATROPIUM-ALBUTEROL 3 ML NEB INHALATION SCH (10:18)
[2024-04-02] MEDS: FLUCONAZOLE 100 MG TAB PO ONE (12:49)
--- NOTE | 2024-04-02 16:39 | P.PN ---
Subjective Progress Note Date: 04/01/24 Principal diagnosis: Reason for follow-up is RSV, leukocytosis Patient is a 64-year-old female with a past medical history significant for COPD, lung cancer status post lobectomy hypertension osteoarthritis and hearing disorder patient has been brought into the hospital for evaluation of increasing shortness of breath patient tested positive for RSV probably this consultation. On today's evaluation that is 04/01/2024, patient has been afebrile, patient is breathing slightly comfortably and is currently on 5 L nasal cannula oxygen, patient denies having any significant cough, patient denies nausea vomiting or diarrhea and no abdominal pain. Patient did have a creatinine 0.48 no CBC was done today Objective - Vital Signs Vital signs: Vital Signs Temp 98.0 F 04/01/24 07:10 Pulse 112 H 04/01/24 11:47 Resp 18 04/01/24 10:46 BP 144/96 04/01/24 07:10 Pulse Ox 97 04/01/24 07:10 FiO2 Intake & Output 03/31/24 04/01/24 04/01/24 18:59 06:59 18:59 Intake Total 300 Balance 300 Intake: Oral 300 Other: Voiding Method Bedside Commode Bedside Commode Bedside Commode # Voids 5 1 1 - Exam GENERAL DESCRIPTION: An elderly female lying in bed in no distress RESPIRATORY SYSTEM: Unlabored breathing , decreased intensity of breath sounds HEART: S1 S2 regular rate and rhythm , ABDOMEN: Soft , no tenderness EXTREMITIES: No edema feet - Labs CBC & Chem 7: 03/29/24 04:07 04/02/24 02:28 Labs: Abnormal Lab Results - Last 24 Hours (Table) 04/01/24 Range/Units 03:33 Sodium 126 L (137-145) mmol/L Chloride 85 L (98-107) mmol/L Carbon Dioxide 32 H (22-30) mmol/L Creatinine 0.48 L (0.52-1.04) mg/dL Glucose 129 H (74-99) mg/dL Assessment and Plan (1) RSV bronchitis Current Visit: Yes Status: Acute Code(s): J20.5 - ACUTE BRONCHITIS DUE TO RESPIRATORY SYNCYTIAL VIRUS SNOMED Code(s): 57374576 (2) Leukocytosis Current Visit: No Status: Acute Code(s): D72.829 - ELEVATED WHITE BLOOD CELL COUNT, UNSPECIFIED SNOMED Code(s): 182287516 Plan: 1patient presenting to the hospital for evaluation of increasing shortness of breath she also have a cough has been diagnosed with a COPD exacerbation with RSV bronchitis treatment for which is mostly supportive including steroids for COPD exacerbation and bronchodilator but no need for antiviral. 2leukocytosis possibly reactive as seem to have resolved without antibiotic therapy and will be monitored closely. 3patient did have repeat a chest x-ray that was negative for pneumonia and did have normal procalcitonin 4patient currently being treated with the steroids and bronchodilator therapy and no need for antibiotic therapy at this point Dictation was produced using [employer] dictation software. please excuse any grammatical, word or spelling errors. Time with Patient: Less than 30
--- NOTE | 2024-04-02 16:40 | P.PN ---
Subjective Progress Note Date: 04/02/24 Principal diagnosis: Reason for follow-up is RSV, leukocytosis Patient is a 64-year-old female with a past medical history significant for COPD, lung cancer status post lobectomy hypertension osteoarthritis and hearing disorder patient has been brought into the hospital for evaluation of increasing shortness of breath patient tested positive for RSV probably this consultation. On today's evaluation that is 04/02/2024, Patient is afebrile this morning patient denies having any chest pain breathing comfortably and cough has decreased in intensity, the patient is currently on 4 L nasal cannula oxygen, patient denies any abdominal pain no diarrhea no nausea no vomiting. The patient did have a creatinine 0.55 no CBC was done today Objective - Vital Signs Vital signs: Vital Signs Temp 98.2 F 04/02/24 07:38 Pulse 100 04/02/24 14:12 Resp 22 04/02/24 14:12 BP 150/87 04/02/24 07:38 Pulse Ox 88 L 04/02/24 07:38 FiO2 Intake & Output 04/01/24 04/02/24 04/02/24 18:59 06:59 18:59 Intake Total 900 Output Total 300 Balance 600 Weight 58.967 kg Intake: Oral 900 Output: Urine 300 Other: Voiding Method Bedside Commode Bedside Commode Bedside Commode # Voids 1 4 2 - Exam GENERAL DESCRIPTION: An elderly female lying in bed in no distress RESPIRATORY SYSTEM: Unlabored breathing , decreased intensity of breath sounds HEART: S1 S2 regular rate and rhythm , ABDOMEN: Soft , no tenderness EXTREMITIES: No edema feet - Labs CBC & Chem 7: 03/29/24 04:07 04/02/24 02:28 Labs: Abnormal Lab Results - Last 24 Hours (Table) 04/02/24 Range/Units 02:28 Sodium 128 L (137-145) mmol/L Chloride 85 L (98-107) mmol/L Carbon Dioxide 34 H (22-30) mmol/L BUN 27 H (7-17) mg/dL Glucose 139 H (74-99) mg/dL Assessment and Plan (1) RSV bronchitis Current Visit: Yes Status: Acute Code(s): J20.5 - ACUTE BRONCHITIS DUE TO RESPIRATORY SYNCYTIAL VIRUS SNOMED Code(s): 68583845 (2) Leukocytosis Current Visit: No Status: Acute Code(s): D72.829 - ELEVATED WHITE BLOOD CELL COUNT, UNSPECIFIED SNOMED Code(s): 766378590 Plan: 1patient presenting to the hospital for evaluation of increasing shortness of breath she also have a cough has been diagnosed with a COPD exacerbation with RSV bronchitis treatment for which is mostly supportive including steroids for COPD exacerbation and bronchodilator but no need for antiviral. 2leukocytosis possibly reactive as seem to have resolved without antibiotic therapy and will be monitored closely. 3patient did have repeat a chest x-ray that was negative for pneumonia and did have normal procalcitonin 4patient mentions some improvement in his symptoms to continue with the steroids and bronchodilator therapy and will monitor closely off antibiotic Dictation was produced using [employer] dictation software. please excuse any grammatical, word or spelling errors.
--- NOTE | 2024-04-02 17:13 | P.PN ---
Progress Note - Text Progress Note Date: 04/02/24 I am rounding for Clemente Gongora. March 29, 2024 Admitted with severe COPD exacerbation. Also RSV. Sitting up in bed. Remains short of breath at rest. IV Solu-Medrol. DuoNeb 4 times daily. Decreased oral intake. Drinks a lot of water. Diet was discussed with the patient. Add Ensure. Increase nebulized pulmonary to 1 mg twice daily. March 302024. Patient remains quite a bit short of breath. Remains on DuoNeb and IV Solu-Medrol. Diet was discussed yesterday including cutting back on water. Patient be getting IV Dilaudid which is not indicated. I did explain to patient that interfere with her appetite nausea and make her bowels low. Hence IV Dilaudid is being discontinued. Patient was not very happy about the same. K-pad was ordered. Spoke to the nurse to have the patient sit up on a chair. Oxygen humidified. Mucinex was added. Again encouraged for more freq uent incentive spirometry. March 31: Patient's Dilaudid was discontinued yesterday. Stable pain wahl. Again reminded the patient today to increase use of incentive spirometry. On 3 L nasal cannula. A bit tachycardic. Will increase Cardizem to 60 mg 3 times daily for better heart rate control and DC amlodipine. Will add Paxil for anxiety. DC Zoloft April 01: Up in a chair. Short of breath. Decreased oral intake. at the bedside. Spoke at length with the patient and . About increased food intake. Also explained to the patient why IV Dilaudid not indicated. Her pain is chronic. Will increase her [place] to every 4 hours. Patient was placed on Cardizem 60 3 times daily yesterday. And amlodipine was discontinued. Still has some tachycardia. Increase Cardizem to 60 mg 4 times daily. Also patient placed on Paxil yesterday and Zoloft discontinued because of anxiety. April 02: Patient's pain is much better controlled with the current dose of [place]. Heart rate somewhat better around 109. Breathing as she had better. Decreased oral intake. Reinforced. Has oropharyngeal candidiasis. Diflucan being started. Spoke to the nurse and the aide to reinforce fluid restriction discussed. Not ready for discharge. Active Medications Hydrocodone Bitart/Acetaminophen (Hydrocodone/Apap 10-325mg 1 Each Tab) 1 each PO Q4H [facility] Last Admin: 04/02/24 15:43 Dose: 1 each Albuterol/Ipratropium (Ipratropium-Albuterol 3 Ml Neb) 3 ml INHALATION RT-QID [facility] Last Admin: 04/02/24 13:59 Dose: 3 ml Albuterol/Ipratropium (Ipratropium-Albuterol 3 Ml Neb) 3 ml INHALATION RT-Q2H PRN PRN Reason: Shortness Of Breath Or Wheezing Alprazolam (Alprazolam 0.5 Mg Tab) 0.5 mg PO TID [facility] Last Admin: 04/02/24 15:43 Dose: 0.5 mg Budesonide (Budesonide 1 Mg/2 Ml Nebu) 1 mg INHALATION RT-BID [facility] Last Admin: 04/02/24 10:18 Dose: 1 mg Diltiazem HCl (Diltiazem Oral 60 Mg Tab) 60 mg PO QID [facility] Last Admin: 04/02/24 17:06 Dose: 60 mg Enoxaparin Sodium (Enoxaparin 40 Mg/0.4 Ml Syringe) 40 mg SQ DAILY [facility] Last Admin: 04/02/24 09:39 Dose: 40 mg Fluconazole (Fluconazole 100 Mg Tab) 100 mg PO DAILY [facility]; Protocol Guaifenesin (Guaifenesin 600 Mg Tablet.Er) 1,200 mg PO Q12HR [facility] Last Admin: 04/02/24 09:40 Dose: 1,200 mg Lamotrigine (Lamotrigine 100 Mg Tab) 100 mg PO BID [facility] Last Admin: 04/02/24 09:39 Dose: 100 mg Methylprednisolone Sodium Succinate (Methylprednisolone Sod Succi 40 Mg/Ml 1 Ml Vial) 40 mg IV Q8HR [facility] Last Admin: 04/02/24 15:42 Dose: 40 mg Naloxone HCl (Naloxone 0.4 Mg/Ml 1 Ml Vial) 0.2 mg IV Q2M PRN PRN Reason: Opioid Reversal Ondansetron HCl (Ondansetron 4 Mg/2 Ml Vial) 4 mg IVP Q6HR PRN PRN Reason: Nausea And Vomiting Last Admin: 03/27/24 20:54 Dose: 4 mg Paroxetine HCl (Paroxetine 20 Mg Tab) 20 mg PO DAILY [facility] Last Admin: 04/02/24 09:39 Dose: 20 mg Zolpidem Tartrate (Zolpidem 5 Mg Tab) 5 mg PO HS [facility] Last Admin: 04/01/24 21:29 Dose: 5 mg On examination: VITAL SIGNS: 9 8.4, 109, 22, 167 x 99, 93% on 4 L GENERAL APPEARANCE: BMI 20.4, up in a chair, s some improvement in shortness of breath HEENT: Normal external appearance of nose and ear. Oral cavity normal EYES: Pupils equal. Conjunctiva normal. NECK: JVD not raised. Mass not palpable. RESPIRATORY: Respiratory effort increased, not able to speak in full sentences, decreased air entry. CARDIOVASCULAR: First and second sounds normal. No edema. ABDOMEN: Soft. Liver and spleen not palpable. No tenderness. No mass palpable. PSYCHIATRY: Alert and oriented x3. Mood and affect anxious INVESTIGATIONS, reviewed in the clinical context: April 02: Sodium 128 potassium 4.9 BUN 27 creatinine 0.55 April 01: Sodium 126 potassium 4.5 creatinine 0.48 March 31: Sodium 128 potassium 4.6 creatinine 0.42 March 29, 2024: White count 3.8 hemoglobin 13.1 platelets 321 sodium 127 potassium 5 BUN 12 creatinine 0.41. Procalcitonin 0.03 Assessment plan: -Acute severe COPD exacerbation In a previous smoker: Slow improvement DuoNeb to 4 times daily. nebulized Perforomist. Pulmicort to 1 mg twice daily. Continue IV Solu-Medrol. Incentive spirometry humidified oxygen -Acute hypoxic respiratory failure 93% on 4 L -Chronic back pain for arthritis, which on [place] 10, 4 times a day. I informed the patient that IV Dilaudid not good given decreased appetite de creased activity. Hence is being discontinued Use K-pad After discussion patient [place] increased to every 4 hours y -Hyponatremia from excessive water intake.: Slow to respond, as patient keeps drinking water Patient advised. Increase fluid restrict 1200 cc e. Decrease IV fluids Encourage oral solute intake Change from heart healthy to regular diet -Essential hypertension Stop amlodipine. Increase Cardizem 60 mg 4 times daily because of tachycardia -Anxiety, uncontrolled, with depression Xanax 0.5 mg 3 times daily was increased Start Paxil 20 mg a day, Zoloft discontinued -Full code
[2024-04-03] MEDS: FLUCONAZOLE 100 MG TAB PO SCH (07:58)
--- NOTE | 2024-04-03 17:48 | P.PN ---
Progress Note - Text Progress Note Date: 04/03/24 I am rounding for Clemente Gongora. March 29, 2024 Admitted with severe COPD exacerbation. Also RSV. Sitting up in bed. Remains short of breath at rest. IV Solu-Medrol. DuoNeb 4 times daily. Decreased oral intake. Drinks a lot of water. Diet was discussed with the patient. Add Ensure. Increase nebulized pulmonary to 1 mg twice daily. March 302024. Patient remains quite a bit short of breath. Remains on DuoNeb and IV Solu-Medrol. Diet was discussed yesterday including cutting back on water. Patient be getting IV Dilaudid which is not indicated. I did explain to patient that interfere with her appetite nausea and make her bowels low. Hence IV Dilaudid is being discontinued. Patient was not very happy about the same. K-pad was ordered. Spoke to the nurse to have the patient sit up on a chair. Oxygen humidified. Mucinex was added. Again encouraged for more freq uent incentive spirometry. March 31: Patient's Dilaudid was discontinued yesterday. Stable pain wahl. Again reminded the patient today to increase use of incentive spirometry. On 3 L nasal cannula. A bit tachycardic. Will increase Cardizem to 60 mg 3 times daily for better heart rate control and DC amlodipine. Will add Paxil for anxiety. DC Zoloft April 01: Up in a chair. Short of breath. Decreased oral intake. at the bedside. Spoke at length with the patient and . About increased food intake. Also explained to the patient why IV Dilaudid not indicated. Her pain is chronic. Will increase her [place] to every 4 hours. Patient was placed on Cardizem 60 3 times daily yesterday. And amlodipine was discontinued. Still has some tachycardia. Increase Cardizem to 60 mg 4 times daily. Also patient placed on Paxil yesterday and Zoloft discontinued because of anxiety. April 02: Patient's pain is much better controlled with the current dose of [place]. Heart rate somewhat better around 109. Breathing as she had better. Decreased oral intake. Reinforced. Has oropharyngeal candidiasis. Diflucan being started. Spoke to the nurse and the aide to reinforce fluid restriction discussed. Not ready for discharge. April 03: Patient back pain remains well-controlled. Up in a chair. Breathing is a bit better. Heart rate now below 100. 4 L nasal cannula. Patient does use 3 L at home. Started yesterday on Diflucan for oral thrush. Cut back Solu-Medrol. To 20 mg Q12 starting tomorrow morning Active Medications Hydrocodone Bitart/Acetaminophen (Hydrocodone/Apap 10-325mg 1 Each Tab) 1 each PO Q4H [facility] Last Admin: 04/03/24 17:02 Dose: 1 each Albuterol/Ipratropium (Ipratropium-Albuterol 3 Ml Neb) 3 ml INHALATION RT-QID [facility] Last Admin: 04/03/24 16:36 Dose: 3 ml Albuterol/Ipratropium (Ipratropium-Albuterol 3 Ml Neb) 3 ml INHALATION RT-Q2H PRN PRN Reason: Shortness Of Breath Or Wheezing Alprazolam (Alprazolam 0.5 Mg Tab) 0.5 mg PO TID [facility] Last Admin: 04/03/24 17:02 Dose: 0.5 mg Budesonide (Budesonide 1 Mg/2 Ml Nebu) 1 mg INHALATION RT-BID [facility] Last Admin: 04/03/24 09:57 Dose: 1 mg Diltiazem HCl (Diltiazem Oral 60 Mg Tab) 60 mg PO QID [facility] Last Admin: 04/03/24 17:02 Dose: 60 mg Enoxaparin Sodium (Enoxaparin 40 Mg/0.4 Ml Syringe) 40 mg SQ DAILY [facility] Last Admin: 04/03/24 07:59 Dose: 40 mg Fluconazole (Fluconazole 100 Mg Tab) 100 mg PO DAILY [facility]; Protocol Last Admin: 04/03/24 07:58 Dose: 100 mg Guaifenesin (Guaifenesin 600 Mg Tablet.Er) 1,200 mg PO Q12HR [facility] Last Admin: 04/03/24 07:58 Dose: 1,200 mg Lamotrigine (Lamotrigine 100 Mg Tab) 100 mg PO BID [facility] Last Admin: 04/03/24 07:59 Dose: 100 mg Methylprednisolone Sodium Succinate (Methylprednisolone Sod Succi 40 Mg/Ml 1 Ml Vial) 20 mg IV Q12HR [facility] Naloxone HCl (Naloxone 0.4 Mg/Ml 1 Ml Vial) 0.2 mg IV Q2M PRN PRN Reason: Opioid Reversal Ondansetron HCl (Ondansetron 4 Mg/2 Ml Vial) 4 mg IVP Q6HR PRN PRN Reason: Nausea And Vomiting Last Admin: 03/27/24 20:54 Dose: 4 mg Paroxetine HCl (Paroxetine 20 Mg Tab) 20 mg PO DAILY [facility] Last Admin: 04/03/24 07:58 Dose: 20 mg Zolpidem Tartrate (Zolpidem 5 Mg Tab) 5 mg PO HS [facility] Last Admin: 04/02/24 20:16 Dose: 5 mg On examination: VITAL SIGNS: 97.7, 92, 16, 132/81, 91% 4 L GENERAL APPEARANCE: BMI 20.4, up in a chair, breathing a bit better HEENT: Normal external appearance of nose and ear. Oral cavity-white patches EYES: Pupils equal. Conjunctiva normal. NECK: JVD not raised. Mass not palpable. RESPIRATORY: Respiratory effort increased, decreased air entry. CARDIOVASCULAR: First and second sounds normal. No edema. ABDOMEN: Soft. Liver and spleen not palpable. No tenderness. No mass palpable. PSYCHIATRY: Alert and oriented x3. Mood and affect anxious INVESTIGATIONS, reviewed in the clinical context: April 02: Sodium 128 potassium 4.9 BUN 27 creatinine 0.55 April 01: Sodium 126 potassium 4.5 creatinine 0.48 March 31: Sodium 128 potassium 4.6 creatinine 0.42 March 29, 2024: White count 3.8 hemoglobin 13.1 platelets 321 sodium 127 potassium 5 BUN 12 creatinine 0.41. Procalcitonin 0.03 Assessment plan: -Acute severe COPD exacerbation In a previous smoker: Improving DuoNeb to 4 times daily. nebulized Perforomist. Pulmicort to 1 mg twice daily. Cut back IV Solu-Medrol to 20 mg every 12. Incentive spirometry humidified oxygen -Chronic hypoxic respiratory failure from COPD Home oxygen 3 L -Acute oropharyngeal candidiasis secondary to steroid use Diflucan started yesterday -Acute hypoxic respiratory failure 93% on 4 L -Chronic back pain for arthritis, which on [place] 10, 4 times a day. I informed the patient that IV Dilaudid not good given decreased appetite d ecreased activity. Hence is being discontinued Use K-pad After discussion patient [place] increased to every 4 hours y -Hyponatremia from excessive water intake.: Patient advised. Increase fluid restrict 1200 cc e. Encourage oral solute intake Change from heart healthy to regular diet -Essential hypertension Stop amlodipine. Changed to Cardizem CD to 40 mg daily -Anxiety, with depression Xanax 0.5 mg 3 times daily was increased Start Paxil 20 mg a day, Zoloft discontinued -Full code
[2024-04-04 04:44] LABS: African American GFR (CKD) >90 (>60 ml/min/1.73 sqM); Anion Gap 3 mmol/L; Blood Urea Nitrogen 24 mg/dL (7-17); Calcium 9.3 mg/dL (8.4-10.2); Carbon Dioxide 38 mmol/L (22-30); Chloride 84 mmol/L (98-107); Glucose 145 mg/dL (74-99); Non-African American GFR(CKD) >90 (>60 ml/min/1.73 sqM); Potassium 5.2 mmol/L (3.5-5.1); Sodium 125 mmol/L (137-145)
[2024-04-04] MEDS: methylPREDNISolone SOD SUCCI 40 MG/ML 1 ML VIAL IV SCH (05:18)
[2024-04-04] MEDS: DILTIAZEM CD 240 MG CAP.ER.24H PO SCH (08:48)
[2024-04-04] MEDS ORDERED: DILTIAZEM CD 180 MG CAP.ER.24H PO SCH (09:00)
--- NOTE | 2024-04-04 12:13 | P.PN ---
Subjective Progress Note Date: 04/03/24 Principal diagnosis: Reason for follow-up is RSV, leukocytosis Patient is a 64-year-old female with a past medical history significant for COPD, lung cancer status post lobectomy hypertension osteoarthritis and hearing disorder patient has been brought into the hospital for evaluation of increasing shortness of breath patient tested positive for RSV probably this consultation. On today's evaluation that is 04/03/2024,the patient denies any fever or any chills, patient is breathing slightly comfortably on 4 L nasal oxygen, the patient denies chest pain shortness of breath and any worsening cough, patient denies abdominal pain, no nausea vomiting or diarrhea. Patient did have a creatinine 0.49 no CBC was done today Objective - Vital Signs Vital signs: Vital Signs Temp 98.4 F 04/03/24 07:30 Pulse 90 04/03/24 13:37 Resp 16 04/03/24 13:37 BP 148/86 04/03/24 07:30 Pulse Ox 90 L 04/03/24 07:30 FiO2 Intake & Output 04/02/24 04/03/24 04/03/24 18:59 06:59 18:59 Intake Total 180 Balance 180 Weight 58.967 kg Intake: Oral 180 Other: Voiding Method Bedside Commode Bedside Commode # Voids 2 4 - Exam GENERAL DESCRIPTION: An elderly female lying in bed in no distress RESPIRATORY SYSTEM: Unlabored breathing , decreased intensity of breath sounds HEART: S1 S2 regular rate and rhythm , ABDOMEN: Soft , no tenderness EXTREMITIES: No edema feet - Labs CBC & Chem 7: 03/29/24 04:07 04/04/24 03:16 Assessment and Plan (1) RSV bronchitis Current Visit: Yes Status: Acute Code(s): J20.5 - ACUTE BRONCHITIS DUE TO RESPIRATORY SYNCYTIAL VIRUS SNOMED Code(s): 59387319 (2) Leukocytosis Current Visit: No Status: Acute Code(s): D72.829 - ELEVATED WHITE BLOOD CELL COUNT, UNSPECIFIED SNOMED Code(s): 127935426 Plan: 1patient presenting to the hospital for evaluation of increasing shortness of breath she also have a cough has been diagnosed with a COPD exacerbation with RSV bronchitis treatment for which is mostly supportive including steroids for COPD exacerbation and bronchodilator but no need for antiviral. 2leukocytosis possibly reactive as seem to have resolved without antibiotic therapy and will be monitored closely. 3patient did have repeat a chest x-ray that was negative for pneumonia and did have normal procalcitonin 4patient to continue with the steroids and bronchodilator therapy and will monitor closely off antibiotic Dictation was produced using [employer] dictation software. please excuse any grammatical, word or spelling errors. Time with Patient: Less than 30
--- NOTE | 2024-04-04 13:17 | P.PN ---
Subjective Progress Note Date: 04/04/24 Principal diagnosis: Reason for follow-up is RSV, leukocytosis Patient is a 64-year-old female with a past medical history significant for COPD, lung cancer status post lobectomy hypertension osteoarthritis and hearing disorder patient has been brought into the hospital for evaluation of increasing shortness of breath patient tested positive for RSV probably this consultation. On today's evaluation that is 04/04/2024,the patient remains to be afebrile, patient is on 4 L nasal cannula supplemental oxygen and breathing slightly comfortably no chest pain or any worsening cough.Patient denies having any nausea or vomiting, no abdominal pain and no diarrhea has been reported. Patient did have a creatinine 0.49 no CBC was done today Objective - Vital Signs Vital signs: Vital Signs Temp 97.9 F 04/04/24 07:57 Pulse 96 04/04/24 11:39 Resp 18 04/04/24 07:57 BP 144/79 04/04/24 07:57 Pulse Ox 93 L 04/04/24 07:57 FiO2 Intake & Output 04/03/24 04/04/24 04/04/24 18:59 06:59 18:59 Intake Total 180 800 Balance 180 800 Intake: Oral 180 800 Other: Voiding Method Bedside Commode Bedside Commode # Voids 4 3 - Exam GENERAL DESCRIPTION: An elderly female lying in bed in no distress RESPIRATORY SYSTEM: Unlabored breathing , decreased intensity of breath sounds HEART: S1 S2 regular rate and rhythm , ABDOMEN: Soft , no tenderness EXTREMITIES: No edema feet - Labs CBC & Chem 7: 03/29/24 04:07 04/04/24 03:16 Labs: Abnormal Lab Results - Last 24 Hours (Table) 04/04/24 Range/Units 03:16 Sodium 125 L (137-145) mmol/L Potassium 5.2 H (3.5-5.1) mmol/L Chloride 84 L (98-107) mmol/L Carbon Dioxide 38 H (22-30) mmol/L BUN 24 H (7-17) mg/dL Creatinine 0.49 L (0.52-1.04) mg/dL Glucose 145 H (74-99) mg/dL Assessment and Plan (1) RSV bronchitis Current Visit: Yes Status: Acute Code(s): J20.5 - ACUTE BRONCHITIS DUE TO RESPIRATORY SYNCYTIAL VIRUS SNOMED Code(s): 90838635 (2) Leukocytosis Current Visit: No Status: Acute Code(s): D72.829 - ELEVATED WHITE BLOOD CELL COUNT, UNSPECIFIED SNOMED Code(s): 543848396 Plan: 1patient presenting to the hospital for evaluation of increasing shortness of breath she also have a cough has been diagnosed with a COPD exacerbation with RSV bronchitis treatment for which is mostly supportive including steroids for COPD exacerbation and bronchodilator but no need for antiviral. 2leukocytosis possibly reactive as seem to have resolved without antibiotic therapy and will be monitored closely. 3patient did have repeat a chest x-ray that was negative for pneumonia and did have normal procalcitonin as well 4patient slowly clinical improvement continue steroids and bronchodilator therapy and will monitor closely off antibiotic Dictation was produced using [employer] dictation software. please excuse any grammatical, word or spelling errors. Time with Patient: Less than 30
--- NOTE | 2024-04-04 17:32 | P.PN ---
Progress Note - Text Progress Note Date: 04/04/24 I am rounding for Clemente Gongora. March 29, 2024 Admitted with severe COPD exacerbation. Also RSV. Sitting up in bed. Remains short of breath at rest. IV Solu-Medrol. DuoNeb 4 times daily. Decreased oral intake. Drinks a lot of water. Diet was discussed with the patient. Add Ensure. Increase nebulized pulmonary to 1 mg twice daily. March 302024. Patient remains quite a bit short of breath. Remains on DuoNeb and IV Solu-Medrol. Diet was discussed yesterday including cutting back on water. Patient be getting IV Dilaudid which is not indicated. I did explain to patient that interfere with her appetite nausea and make her bowels low. Hence IV Dilaudid is being discontinued. Patient was not very happy about the same. K-pad was ordered. Spoke to the nurse to have the patient sit up on a chair. Oxygen humidified. Mucinex was added. Again encouraged for more freq uent incentive spirometry. March 31: Patient's Dilaudid was discontinued yesterday. Stable pain wahl. Again reminded the patient today to increase use of incentive spirometry. On 3 L nasal cannula. A bit tachycardic. Will increase Cardizem to 60 mg 3 times daily for better heart rate control and DC amlodipine. Will add Paxil for anxiety. DC Zoloft April 01: Up in a chair. Short of breath. Decreased oral intake. at the bedside. Spoke at length with the patient and . About increased food intake. Also explained to the patient why IV Dilaudid not indicated. Her pain is chronic. Will increase her [place] to every 4 hours. Patient was placed on Cardizem 60 3 times daily yesterday. And amlodipine was discontinued. Still has some tachycardia. Increase Cardizem to 60 mg 4 times daily. Also patient placed on Paxil yesterday and Zoloft discontinued because of anxiety. April 02: Patient's pain is much better controlled with the current dose of [place]. Heart rate somewhat better around 109. Breathing as she had better. Decreased oral intake. Reinforced. Has oropharyngeal candidiasis. Diflucan being started. Spoke to the nurse and the aide to reinforce fluid restriction discussed. Not ready for discharge. April 03: Patient back pain remains well-controlled. Up in a chair. Breathing is a bit better. Heart rate now below 100. 4 L nasal cannula. Patient does use 3 L at home. Started yesterday on Diflucan for oral thrush. Cut back Solu-Medrol. To 20 mg Q12 starting tomorrow morning April 04: Breathing improving. Eating bit better. 5 L nasal cannula. Discussed. Solu-Medrol 20 mg every 12. Planning for discharge tomorrow. Understands prognosis guarded. Active Medications Hydrocodone Bitart/Acetaminophen (Hydrocodone/Apap 10-325mg 1 Each Tab) 1 each PO Q4H [facility] Last Admin: 04/04/24 15:38 Dose: 1 each Albuterol/Ipratropium (Ipratropium-Albuterol 3 Ml Neb) 3 ml INHALATION RT-QID [facility] Last Admin: 04/04/24 15:11 Dose: 3 ml Albuterol/Ipratropium (Ipratropium-Albuterol 3 Ml Neb) 3 ml INHALATION RT-Q2H PRN PRN Reason: Shortness Of Breath Or Wheezing Alprazolam (Alprazolam 0.5 Mg Tab) 0.5 mg PO TID [facility] Last Admin: 04/04/24 15:38 Dose: 0.5 mg Budesonide (Budesonide 1 Mg/2 Ml Nebu) 1 mg INHALATION RT-BID [facility] Last Admin: 04/04/24 06:03 Dose: 1 mg Diltiazem HCl (Diltiazem Cd 240 Mg Cap.Er.24h) 240 mg PO DAILY [facility] Last Admin: 04/04/24 08:48 Dose: 240 mg Enoxaparin Sodium (Enoxaparin 40 Mg/0.4 Ml Syringe) 40 mg SQ DAILY [facility] Last Admin: 04/04/24 08:48 Dose: 40 mg Fluconazole (Fluconazole 100 Mg Tab) 100 mg PO DAILY [facility]; Protocol Last Admin: 04/04/24 08:47 Dose: 100 mg Guaifenesin (Guaifenesin 600 Mg Tablet.Er) 1,200 mg PO Q12HR [facility] Last Admin: 04/04/24 08:47 Dose: 1,200 mg Lamotrigine (Lamotrigine 100 Mg Tab) 100 mg PO BID [facility] Last Admin: 04/04/24 08:47 Dose: 100 mg Methylprednisolone Sodium Succinate (Methylprednisolone Sod Succi 40 Mg/Ml 1 Ml Vial) 20 mg IV Q12H [facility] Last Admin: 04/04/24 05:18 Dose: 20 mg Naloxone HCl (Naloxone 0.4 Mg/Ml 1 Ml Vial) 0.2 mg IV Q2M PRN PRN Reason: Opioid Reversal Ondansetron HCl (Ondansetron 4 Mg/2 Ml Vial) 4 mg IVP Q6HR PRN PRN Reason: Nausea And Vomiting Last Admin: 03/27/24 20:54 Dose: 4 mg Paroxetine HCl (Paroxetine 20 Mg Tab) 20 mg PO DAILY [facility] Last Admin: 04/04/24 08:47 Dose: 20 mg Zolpidem Tartrate (Zolpidem 5 Mg Tab) 5 mg PO HS [facility] Last Admin: 04/03/24 21:38 Dose: 5 mg On examination: VITAL SIGNS: 98.1, 66, 20, 123 x 71, 92% 5 L GENERAL APPEARANCE: BMI 20.4, up in a chair, breathing improved HEENT: Normal external appearance of nose and ear. Oral cavity-white patches EYES: Pupils equal. Conjunctiva normal. NECK: JVD not raised. Mass not palpable. RESPIRATORY: Respiratory effort increased, decreased air entry. CARDIOVASCULAR: First and second sounds normal. No edema. ABDOMEN: Soft. Liver and spleen not palpable. No tenderness. No mass palpable. PSYCHIATRY: Alert and oriented x3. Mood and affect anxious INVESTIGATIONS, reviewed in the clinical context: April 04: Sodium 125 potassium 5.2 BUN 24 creatinine 0.49 April 02: Sodium 128 potassium 4.9 BUN 27 creatinine 0.55 April 01: Sodium 126 potassium 4.5 creatinine 0.48 March 31: Sodium 128 potassium 4.6 creatinine 0.42 March 29, 2024: White count 3.8 hemoglobin 13.1 platelets 321 sodium 127 potassium 5 BUN 12 creatinine 0.41. Procalcitonin 0.03 Assessment plan: -Acute severe COPD exacerbation In a previous smoker: Improving DuoNeb to 4 times daily. nebulized Perforomist. Pulmicort to 1 mg twice daily. IV Solu-Medrol to 20 mg every 12. Incentive spirometry humidified oxygen -Chronic hypoxic respiratory failure from COPD Home oxygen 3 L -Acute oropharyngeal candidiasis secondary to steroid use Diflucan -Acute hypoxic respiratory failure 93% on 4-5 L -Chronic back pain for arthritis, which on [place] 10, 4 times a day. I informed the patient that IV Dilaudid not good given decreased appetite decreased activity. Hence is being discontinued Use K-pad After discussion patient [place] increased to every 4 hours y -Hyponatremia from excessive water intake.: Not improving. Patient advised. Increase fluid restrict 1200 cc e. Encourage oral solute intake Free water avoidance reinforced -Essential hypertension Stop amlodipine. Changed to Cardizem CD to 40 mg daily -Anxiety, with depression Xanax 0.5 mg 3 times daily was increased Start Paxil 20 mg a day, Zoloft discontinued -Full code
[2024-04-05 08:42] VITALS: BP 160/82; RESP 18; TEMP 98.2
[2024-04-05 12:33] VITALS: PULSE 96
--- NOTE | 2024-04-05 12:53 | P.PN ---
Subjective Progress Note Date: 04/05/24 Principal diagnosis: Reason for follow-up is RSV, leukocytosis Patient is a 64-year-old female with a past medical history significant for COPD, lung cancer status post lobectomy hypertension osteoarthritis and hearing disorder patient has been brought into the hospital for evaluation of increasing shortness of breath patient tested positive for RSV probably this consultation. On today's evaluation that is 04/05/2024, the patient continues to be afebrile, the patient is on 4 L current oxygen and breathing comfortably, the Pt denies having any chest pain and cough is decreased in intensity, the patient denies having any abdominal pain no vomiting or any diarrhea, mention feeling better wants to go home. No new lab has been repeated today Objective - Vital Signs Vital signs: Vital Signs Temp 98.2 F 04/05/24 07:32 Pulse 105 H 04/05/24 09:47 Resp 18 04/05/24 08:10 BP 160/82 04/05/24 07:32 Pulse Ox 77 L 04/05/24 12:01 FiO2 Intake & Output 04/04/24 04/05/24 04/05/24 18:59 06:59 18:59 Weight 58.967 kg Other: Voiding Method Bedside Commode Bedside Commode # Voids 3 4 - Exam GENERAL DESCRIPTION: An elderly female lying in bed in no distress RESPIRATORY SYSTEM: Unlabored breathing , decreased intensity of breath sounds HEART: S1 S2 regular rate and rhythm , ABDOMEN: Soft , no tenderness EXTREMITIES: No edema feet - Labs CBC & Chem 7: 03/29/24 04:07 04/04/24 03:16 Assessment and Plan (1) RSV bronchitis Current Visit: Yes Status: Acute Code(s): J20.5 - ACUTE BRONCHITIS DUE TO RESPIRATORY SYNCYTIAL VIRUS SNOMED Code(s): 83945072 (2) Leukocytosis Current Visit: No Status: Acute Code(s): D72.829 - ELEVATED WHITE BLOOD CELL COUNT, UNSPECIFIED SNOMED Code(s): 932262868 Plan: 1patient presenting to the hospital for evaluation of increasing shortness of breath she also have a cough has been diagnosed with a COPD exacerbation with RSV bronchitis treatment for which is mostly supportive including steroids for COPD exacerbation and bronchodilator but no need for antiviral. 2leukocytosis possibly reactive as seem to have resolved without antibiotic therapy and will be monitored closely. 3patient did have repeat a chest x-ray that was negative for pneumonia and did have normal procalcitonin as well patient did have some clinical improvement and seem to be considered for discharge no need for any antibiotic on discharge Multiple question concern answered Dictation was produced using [employer] dictation software. please excuse any grammatical, word or spelling errors. Time with Patient: Less than 30
--- NOTE | 2024-04-05 14:14 | P.DS ---
Providers Date of admission: 03/24/24 19:36 Expected date of discharge: 04/05/24 Attending physician: Clemente Gongora Consults: 03/24/24 21:16 Consult Physician Routine Consulting Provider: Juan Menendez Consult Reason/Comments: rsv Do you want consulting provider notified?: Yes 03/24/24 21:17 Consult Physician Routine Consulting Provider: Tammy Zacarias Consult Reason/Comments: rsv Do you want consulting provider notified?: Yes 03/25/24 21:16 Consult Physician Routine Consulting Provider: Tammy Zacarias Consult Reason/Comments: rsv Do you want consulting provider notified?: Yes Primary care physician: [facility] Hospital Course: I am rounding for Clemente Gongora. March 29, 2024 Admitted with severe COPD exacerbation. Also RSV. Sitting up in bed. Remains short of breath at rest. IV Solu-Medrol. DuoNeb 4 times daily. Decreased oral intake. Drinks a lot of water. Diet was discussed with the patient. Add Ensure. Increase nebulized pulmonary to 1 mg twice daily. March 302024. Patient remains quite a bit short of breath. Remains on DuoNeb and IV Solu-Medrol. Diet was discussed yesterday including cutting back on water. Patient be getting IV Dilaudid which is not indicated. I did explain to patient that interfere with her appetite nausea and make her bowels low. Hence IV Dilaudid is being discontinued. Patient was not very happy about the same. K-pad was ordered. Spoke to the nurse to have the patient sit up on a chair. Oxygen humidified. Mucinex was added. Again encouraged for more frequent incentive spirometry. March 31: Patient's Dilaudid was discontinued yesterday. Stable pain wahl. Again reminded the patient today to increase use of incentive spirometry. On 3 L nasal cannula. A bit tachycardic. Will increase Cardizem to 60 mg 3 times daily for better heart rate control and DC amlodipine. Will add Paxil for anxiety. DC Zoloft April 01: Up in a chair. Short of breath. Decreased oral intake. at the bedside. Spoke at length with the patient and . About increased food intake. Also explained to the patient why IV Dilaudid not indicated. Her pain is chronic. Will increase her [place] to every 4 hours. Patient was placed on Cardizem 60 3 times daily yesterday. And amlodipine was discontinued. Still has some tachycardia. Increase Cardizem to 60 mg 4 times daily. Also patient placed on Paxil yesterday and Zoloft discontinued because of anxiety. April 02: Patient's pain is much better controlled with the current dose of [place]. Heart rate somewhat better around 109. Breathing as she had better. Decreased oral intake. Reinforced. Has oropharyngeal candidiasis. Diflucan being started. Spoke to the nurse and the aide to reinforce fluid restriction discussed. Not ready for discharge. April 03: Patient back pain remains well-controlled. Up in a chair. Breathing is a bit better. Heart rate now below 100. 4 L nasal cannula. Patient does use 3 L at home. Started yesterday on Diflucan for oral thrush. Cut back Solu-Medrol. To 20 mg Q12 starting tomorrow morning April 04: Breathing improving. Eating bit better. 5 L nasal cannula. Discussed. Solu-Medrol 20 mg every 12. Planning for discharge tomorrow. Understands prognosis guarded. April 05: Eating better. Getting around better. Discharged on prednisone taper. Diflucan. Prednisone taper. Will give a short course of [place] for a flareup during the hospitalization. And follow-up with Dr. Gongora. Medications discussed. Fluid restriction. Discharged on 4 L Discussion and discharge planning more than 35 minutes On examination: VITAL SIGNS: 95, 71% room air. 95% on 4 L GENERAL APPEARANCE: Sitting up breathing much better HEENT: Normal external appearance of nose and ear. Oral cavity-white patches EYES: Pupils equal. Conjunctiva normal. NECK: JVD not raised. Mass not palpable. RESPIRATORY: Respiratory effort increased, decreased air entry. CARDIOVASCULAR: First and second sounds normal. No edema. ABDOMEN: Soft. Liver and spleen not palpable. No tenderness. No mass palpable. PSYCHIATRY: Alert and oriented x3. Mood and affect anxious INVESTIGATIONS, reviewed in the clinical context: April 04: Sodium 125 potassium 5.2 BUN 24 creatinine 0.49 April 02: Sodium 128 potassium 4.9 BUN 27 creatinine 0.55 April 01: Sodium 126 potassium 4.5 creatinine 0.48 March 31: Sodium 128 potassium 4.6 creatinine 0.42 March 29, 2024: White count 3.8 hemoglobin 13.1 platelets 321 sodium 127 potassium 5 BUN 12 creatinine 0.41. Procalcitonin 0.03 Assessment plan: -Acute severe COPD exacerbation In a previous smoker: Improving DuoNeb to 4 times daily. nebulized Perforomist. Pulmicort to 1 mg twice daily. IV Solu-Medrol Incentive spirometry humidified oxygen Discharged on prednisone taper -Chronic hypoxic respiratory failure from COPD Home oxygen 3 L -Acute oropharyngeal candidiasis secondary to steroid use Diflucan 5 days -Acute RSV infection Symptomatic treatment -Acute hypoxic respiratory failure 93% on 4-5 L -Chronic back pain for arthritis, which on [place] 10, 4 times a day. I informed the patient that IV Dilaudid not good given decreased appetite decreased activity. Hence is being discontinued Use K-pad After discussion patient [place] increased to every 4 hours y -Hyponatremia from excessive water intake.: Not improving. Patient advised. Increase fluid restrict 1200 cc e. Encourage oral solute intake Free water avoidance reinforced -Essential hypertension Stop amlodipine. Changed to Cardizem CD to 40 mg daily -Anxiety, with depression Xanax 0.5 mg twice daily Start Paxil 20 mg a day, Zoloft discontinued -Full code Disposition: Home Plan - Discharge Summary Discharge Rx Participant: No New Discharge Prescriptions: New Diltiazem Cd [Cardizem CD] 240 mg PO DAILY #30 cap Fluconazole [Diflucan] 100 mg PO DAILY #5 tab HYDROcodone/APAP 10-325MG [[place] 10-325] 1 each PO Q4H #20 tab guaiFENesin [Mucinex] 1,200 mg PO Q12HR #30 tab PARoxetine [Paxil] 20 mg PO DAILY #30 tab predniSONE 10 mg PO DAILY #30 tab Continue Budesonide-Formot 160-4.5 Mcg [Symbicort 160-4.5 Mcg Inhaler] 2 puff INHALATION RT-BID #1 unit lamoTRIgine [LaMICtal] 100 mg PO BID Ipratropium-Albuterol Nebulize [Duoneb 0.5 mg-3 mg/3 ml Soln] 3 ml INHALATION RT-QID ALPRAZolam [Xanax] 0.5 mg PO BID Albuterol Sulfate/Budesonide [Airsupra 90-80 Mcg Inhaler] 2 puff INHALATION RT-Q4H PRN PRN Reason: Shortness Of Breath Discontinued amLODIPine [Norvasc] 10 mg PO DAILY Sertraline [Zoloft] 50 mg PO BID HYDROcodone/APAP 10-325MG [[place] 10-325] 1 tab PO QID methylPREDNISolone [Medrol Dose Pack] See Taper PO DIRECTED Cefdinir [Omnicef] 300 mg PO BID Discharge Medication List Budesonide-Formot 160-4.5 Mcg [Symbicort 160-4.5 Mcg Inhaler] 2 puff INHALATION RT-BID #1 unit 12/01/17 [Rx] ALPRAZolam [Xanax] 0.5 mg PO BID 02/08/23 [History] Albuterol Sulfate/Budesonide [Airsupra 90-80 Mcg Inhaler] 2 puff INHALATION RT- Q4H PRN 03/15/24 [History] lamoTRIgine [LaMICtal] 100 mg PO BID 03/15/24 [History] Ipratropium-Albuterol Nebulize [Duoneb 0.5 mg-3 mg/3 ml Soln] 3 ml INHALATION RT-QID 03/25/24 [History] Diltiazem Cd [Cardizem CD] 240 mg PO DAILY #30 cap 04/05/24 [Rx] Fluconazole [Diflucan] 100 mg PO DAILY #5 tab 04/05/24 [Rx] HYDROcodone/APAP 10-325MG [[place] 10-325] 1 each PO Q4H #20 tab 04/05/24 [Rx] PARoxetine [Paxil] 20 mg PO DAILY #30 tab 04/05/24 [Rx] guaiFENesin [Mucinex] 1,200 mg PO Q12HR #30 tab 04/05/24 [Rx] predniSONE 10 mg PO DAILY #30 tab 04/05/24 [Rx] Follow up Appointment(s)/Referral(s): Clemente Gongora MD [Primary Care Provider] - 04/11/24 1:15 pm Juan Menendez [STAFF PHYSICIAN] - 04/23/24 12:15 pm Activity/Diet/Wound Care/Special Instructions: home fio2 fluid restrict 1500 cc/day Discharge Disposition: HOME SELF-CARE
== END 2024-04-05 13:23 | disposition home or self-care (01) | DRG 190 ==
LOC: SUPCPDRO 17:21 → EC 17:21 → 4SSUR 19:36
PROVIDERS: ADMIT Family Medicine; ATTEND Family Medicine
DX: J44.1 Chronic obstructive pulmonary disease with (acute) exacerbation (principal); J12.1 Respiratory syncytial virus pneumonia; J96.21 Acute and chronic respiratory failure with hypoxia; B37.89 Other sites of candidiasis; I27.20 Pulmonary hypertension, unspecified; B37.0 Candidal stomatitis; J44.0 Chronic obstructive pulmonary disease with (acute) lower respiratory infection; F32.A Depression, unspecified; Z93.3 Colostomy status; Z11.52 Encounter for screening for COVID-19; T38.0X5A Adverse effect of glucocorticoids and synthetic analogues, initial encounter; F41.8 Other specified anxiety disorders; H91.90 Unspecified hearing loss, unspecified ear; J20.5 Acute bronchitis due to respiratory syncytial virus; M19.90 Unspecified osteoarthritis, unspecified site; Z79.51 Long term (current) use of inhaled steroids; Z79.899 Other long term (current) drug therapy; Z82.49 Family history of ischemic heart disease and other diseases of the circulatory system; Z85.118 Personal history of other malignant neoplasm of bronchus and lung; Z87.891 Personal history of nicotine dependence; Z90.710 Acquired absence of both cervix and uterus; Z97.4 Presence of external hearing-aid; X58.XXXA Exposure to other specified factors, initial encounter; G89.29 Other chronic pain; M54.9 Dorsalgia, unspecified; Z98.51 Tubal ligation status
CPT/HCPCS: 36415; 71045; 71046; 80048; 80053; 83605; 83880; 83930; 84145; 84484; 85025; 85379; 85610; 85730; 86140; 87636; 93005; 94640; 94667; 94760; 96365; 96375; 96376; 99291